=== PATIENT | male | born 1940 | race Caucasian/White ===

== ENCOUNTER → 2016-11-26 | Outpatient (CLI) | payer OTHER ==
[~2016-11-26] MED LIST: ALPR-411 PO; ALPRPOW TD; AMLO-110 PO; ASPCH81X PO; AUG0.05C12 TOP; CALC1CHW57 PO; CHOL1000 PO; CLON0.5T3 PO; CMBIN INH; DSWCR TD; ESCI1TAB10 PO; FINA5TAB4 PO; FLUT0.15; GABA300C19 PO; GABA800T PO; INSDGI SC; INSU1INJ2; INSUINJ17 SC; IPRASOL4 INH; LIDOCAINE EX; METF-384 PO; MGNO400 PO; MULT-1093; MULT-506 PO; MULTTAB58 PO; OMEGCAP2 PO; OXGN; SILO8CAP PO; SIMV40TA2 PO; SPIR50TA2 PO; TRAM-10 PO; VENL75CA73 PO; VITBC PO; ZOLP10TA6 PO; [UNRECOGNIZED DRUG - OTHER]
--- NOTE | 2016-11-26 15:28 | DIAGNOSTIC IMAGING REPORT ---
RIGHT KNEE 1 OR 2 VIEWS CLINICAL HISTORY: Subtle fracture COMPARISON STUDY: 10/15/2016 FINDINGS: There are osteoarthritic changes with narrowing of the medial joint compartment. There is a healing nondisplaced fracture of the medial patellar facet. IMPRESSION: Healing nondisplaced fracture of the medial patellar facet Electronically signed by: Edy Olivo M.D. 11/26/2016 3:26 PM Dictated Date/Time: 11/26/2016 3:24 PM
== END | disposition home or self-care (01) ==
LOC: C.RDSM 08:00
PROVIDERS: ATTEND Physical Medicine & Rehabilitation Sports Medicine
DX: M25.561 Pain in right knee (principal)

== ENCOUNTER → 2017-03-18 | Outpatient (CLI) | payer OTHER ==
[~2017-03-18] MED LIST changes: +GABA-1218 PO; -GABA300C19 PO; +NCY50 PO
[2017-03-18 18:22] LABS: BLOOD UREA NITROGEN 12 mg/dl (7-18); CALCIUM 9.2 mg/dl (8.5-10.1); CARBON DIOXIDE 27 mmol/L (21-32); CHLORIDE 105 mmol/L (98-107); CREATININE 0.94 mg/dl (0.60-1.40); GLUCOSE 135 mg/dl (70-99); POTASSIUM 4.4 mmol/L (3.5-5.1); SODIUM 141 mmol/L (136-145)
[2017-03-18 18:29] LABS: CHOLESTEROL 149 mg/dl (0-200); CHOLESTEROL/HDL RATIO 2.2; HDL CHOLESTEROL 69 mg/dl; LDL CHOLESTEROL CALCULATED 61 mg/dl; TRIGLYCERIDES 95 mg/dl (0-150); VERY LOW DENSITY LIPOPROT CALC 19 mg/dl
[2017-03-19 06:58] LABS: ESTIMATED AVERAGE GLUCOSE 151 mg/dl; HA1C FLAG Normal (Normal)
== END | disposition home or self-care (01) ==
LOC: C.LAB1850 16:08
PROVIDERS: ATTEND Family Medicine
DX: Z68.31 Body mass index [BMI] 31.0-31.9, adult (principal); E11.49 Type 2 diabetes mellitus with other diabetic neurological complication

== ENCOUNTER → 2017-05-08 | Outpatient (CLI) | payer OTHER | END | disposition home or self-care (01) | LOC: C.RDSM 14:49 | PROVIDERS: ATTEND Family Medicine Sports Medicine | DX: M25.511 Pain in right shoulder (principal) ==

== ENCOUNTER → 2017-06-04 | Outpatient (CLI) | payer OTHER ==
[~2017-06-04] MED LIST changes: -GABA-1218 PO; +GABA300C19 PO
--- NOTE | 2017-06-08 19:27 | PULMONARY FUNCTION TEST ---
Interpretation based off of ATS criteria: SPIROMETRY: Moderately severe obstructive ventilatory disease. BRONCHODILATOR: No significant response noted. LUNG VOLUMES: Moderate reduction in total lung capacity. DIFFUSION CAPACITY: Within normal limits. INTERPRETATION: Mild obstructive ventilatory disease with mixed residual/restrictive ventilatory dysfunction.
== END | disposition home or self-care (01) ==
LOC: C.RC 10:39
PROVIDERS: ATTEND Internal Medicine Critical Care Medicine
DX: J98.4 Other disorders of lung (principal)

== ENCOUNTER 2017-07-18 00:49 | Emergency (ER) | payer OTHER ==
[~2017-07-18] VITALS: Ht 188 cm; Wt 113.7 kg
[~2017-07-18 00:49] MED LIST changes: -ALPR-411 PO; -AMLO-110 PO; -AUG0.05C12 TOP; -FLUT0.15; -GABA800T PO; -INSU1INJ2; -LIDOCAINE EX; -MULT-1093; -MULT-506 PO; -NCY50 PO; -SIMV40TA2 PO; -TRAM-10 PO; -VENL75CA73 PO; -[UNRECOGNIZED DRUG - OTHER]
[2017-07-18 00:58] VITALS: TEMP 37.1; Ht 188 cm; Wt 113.7 kg
[2017-07-18 01:04] VITALS: O2SAT 96
[2017-07-18 02:01] LABS: ALB/GLOB RATIO 1.2 (0.9-2); BUN/CREATININE RATIO 18.2 (10-20); CALCIUM 8.9 mg/dl (8.5-10.1); CREATININE 0.99 mg/dl (0.60-1.40); POTASSIUM 4.7 mmol/L (3.5-5.1)
[2017-07-18 03:03] LABS: HEMATOCRIT 37.6 % (42-52); MEAN CELL VOLUME 91.7 fL (80-100); MEAN CORPUSCULAR HEMOGLOBIN 30.2 pg (25-34); MEAN PLATELET VOLUME 11.4 fL (7.4-10.4); PLATELET COUNT 74 K/uL (130-400); WHITE BLOOD COUNT 3.54 K/uL (4.8-10.8)
[2017-07-18 03:05] LABS: BASO % 0.3 %; BASO ABS # 0.01 K/uL (0-0.2); COMPLETE YES; EOS % 1.7 %; IG% 0.3 %; LYMPH % 18.1 %; LYMPH ABS # 0.64 K/uL (1.2-3.4); MONO % 5.4 %; NEUT % 74.2 %; PLT ESTIMATE DECREASED
[2017-07-18 04:00] VITALS: BP 140/60
[2017-07-18 04:32] VITALS: PULSE 64; O2SAT 95
--- NOTE | 2017-07-18 04:36 | EMERGENCY ROOM VISIT NOTE ---
History Report prepared by Robert: Ayse Yu Under the Supervision of: Dr. Miriam Xie D.O. First contact with patient: 00:52 Chief Complaint: OVERDOSE (ACCIDENTAL) Stated Complaint: INSULIN OVERDOSE History of Present Illness The patient is a 76 year old male who presents to the Emergency Room with complaints of an accidental insulin overdose around 2330 today. The patient has a history of diabetes and normally takes 6 units of Humulin and 33 units of Lantus at night. He was tired today and not paying attention when he was giving himself his insulin at 2330. He gave himself 28 units of Humulin when the pen emptied. He then realized he had given himself the wrong insulin. He did not give himself any Lantus today. He took a glucose tab and called EMS. He was given a tube of glucose in route. His blood sugar was 229 before injecting himself. Upon arrival to the ED, his blood sugar was 231. He is currently feeling tired, but otherwise well. He had been feeling well the past couple of days. His blood sugar tonight was a little higher than usual as he had a piece of pie today. 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 He has some left leg pain after falling while getting into the ambulance today. He is able to walk on it. He denies any other recent falls or trauma. He notes that he has been having balance issues which is not new for him. Source of History: patient Onset: 2330 Position: other (global) Symptom Intensity: 28 units of Humulin Quality: other (insulin overdose) Timing: other (episodic) Associated Symptoms: + fatigue Note: Pt reports left leg pain. Review of Systems See HPI for pertinent positives & negatives. A total of 10 systems reviewed and were otherwise negative. Past Medical & Surgical Medical Problems: (1) Anxiety (2) Chronic congestive heart failure (3) Chronic obstructive lung disease (4) Depression (5) Diabetes mellitus type 2 (6) Diverticula of colon (7) Diverticulitis (8) Dupuytren's contracture (9) TERI (obstructive sleep apnea) (10) Raynaud disease Family History No pertinent family history stated. Social History Smoking Status: Former Smoker Drug Use: none Marital Status: Housing Status: lives with family Occupation Status: retired Current/Historical Medications Scheduled Alprostadil (Bulk) (Prostaglandin E1), 1 APPLN TD UD Aspirin (Aspirin Chewable), 81 MG PO DAILY Calcium W/ Vitamins D & K (Calcium + D), 1 TAB PO UD Cholecalciferol (Vitamin D3), 2,000 INTER.UNIT PO DAILY Desonide 0.05% (Desowen 0.05%), 1 APPLN TD BID/PRN Escitalopram Oxalate (Lexapro), 20 MG PO DAILY Finasteride (Proscar), 5 MG PO DAILY Gabapentin (Neurontin), 300 MG PO QID Home O2 Therapy (Oxygen), 3.5 LITERS NA CONTINOUS Insulin Glargine (Lantus), 35 UNITS SC QPM Insulin Regular (Humulin-R), UNITS SC UD Ipratropium-Albuterol (Duoneb), 1 TREATMENT INH Q4H Magnesium Oxide (Magnesium-Oxide), 400 MG PO QAM Metformin Hcl (Glucophage), 1,000 MG PO BID Multiple Vitamin (Multivitamin), 1 TAB PO DAILY Blunt-3 Fatty Acids (Fish Oil), 1 CAPSULE PO BID Silodosin (Rapaflo), 8 MG PO Q2D Spironolactone (Aldactone), 50 MG PO BID Vitamin B Complex (Vitamin B Complex), 2 TABLETS PO DAILY Scheduled PRN Clonazepam (Klonopin), 0.5 MG PO TID PRN for Anxiety/Agitation Ipratropium/Albuterol (Combivent *), 1-2 PUFFS INH Q4-6 HRS PRN Zolpidem Tartrate (Zolpidem Tartrate), 10 MG PO HS PRN Allergies Coded Allergies: Cyclobenzaprine (Verified Allergy, Severe, COLLAPSE, 03/19/10) Lisinopril (Verified Allergy, Mild, 12/21/09) Pioglitazone (Verified Allergy, Mild, 12/21/09) Prochlorperazine (Verified Allergy, Mild, 12/21/09) Glimepiride (Verified Allergy, Unknown, Unknown Rxn, 03/19/10) Mirtazapine (Verified Allergy, Unknown, UNKNOWN, 03/19/10) NO INFO ON ANESTHESIA SHEET Hydrochlorothiazide w/Triamterene (Verified Adverse Reaction, Mild, WEIGHT GAIN,DIZZINESS , FALLS, 03/19/10) Penicillins (Verified Adverse Reaction, Mild, REDNESS AT INJECTION SITE, ) Streptomycin (Verified Adverse Reaction, Mild, REMOTE RXN, "TINGLING IN LEGS" DENIES SOB/RASH, 12/21/09) Tazobactam (Verified Adverse Reaction, Mild, REDNESS AT INJECTION SITE, 12/21/09) Propoxyphene (Verified Adverse Reaction, Unknown, UNKNOWN, 03/19/10) NO INFO ON ANESTHESIA SHEET Physical Exam Vital Signs Date Time Temp Pulse Resp B/P (MAP) Pulse Ox O2 Delivery O2 Flow Rate FiO2 07/18/17 04:32 64 20 95 07/18/17 04:00 61 14 140/60 96 Nasal Cannula 3.5 07/18/17 03:30 65 17 145/63 95 Nasal Cannula 3.5 07/18/17 03:00 64 16 148/68 94 Nasal Cannula 3.5 07/18/17 02:30 73 17 139/50 94 Nasal Cannula 3.5 07/18/17 02:18 69 16 142/56 94 Nasal Cannula 3.5 07/18/17 01:11 74 07/18/17 01:04 96 Nasal Cannula 3.5 07/18/17 00:58 37.1 80 20 140/80 96 Nasal Cannula 3.5 07/18/17 00:58 95 Nasal Cannula 3.5 Physical Exam HEENT: Head - normocephalic and atraumatic Pupils are equal, round, and reactive to light. Extraocular eye muscles are intact, and sclera are anicteric. Nose - moist nasal mucosa without discharge. Mouth - moist buccal mucosa. Oropharynx is nonerythematous and there is no tonsillar exudate or edema noted. Neck: Supple; no JVD, nuchal rigidity, cervical lymphadenopathy, or auscultated bruits. Heart: Regular rate and rhythm. There is a normal S1 and S2 with no murmurs, clicks, or gallops appreciated. Lungs: Clear to auscultation bilaterally with no wheezes, rales, or rhonchi. Abdomen: Soft, completely nontender, nondistended, with good bowel sounds. There are no palpable pulsatile masses or hepatosplenomegaly. There is no guarding, rigidity, or rebound noted. Extremities: No evidence of cyanosis, clubbing, or edema. There are easily palpable peripheral pulses. Contusion over the distal left lower extremity. Skin: warm and dry with good turgor and no rashes. Medical Decision & Procedures Laboratory Results 07/18/17 02:10 Red Blood Count 4.10, Mean Corpuscular Volume 91.7, Mean Corpuscular Hemoglobin 30.2, Mean Corpuscular Hemoglobin Concent 33.0, Mean Platelet Volume 11.4, Neutrophils (%) (Auto) 74.2, Lymphocytes (%) (Auto) 18.1, Monocytes (%) (Auto) 5.4, Eosinophils (%) (Auto) 1.7, Basophils (%) (Auto) 0.3, Neutrophils # (Auto) 2.63, Lymphocytes # (Auto) 0.64, Monocytes # (Auto) 0.19, Eosinophils # (Auto) 0.06, Basophils # (Auto) 0.01 07/18/17 01:20 Test 07/18/17 01:20 07/18/17 02:10 07/18/17 04:12 Anion Gap 4.0 mmol/L (3-11) Est Creatinine Clear Calc Drug Dose 85.1 ml/min Estimated GFR () 85.4 Estimated GFR (Non- 73.7 BUN/Creatinine Ratio 18.2 (10-20) Calcium Level 8.9 mg/dl (8.5-10.1) Total Bilirubin 0.2 mg/dl (0.2-1) Aspartate Amino Transf (AST/SGOT) 17 U/L (15-37) Alanine Aminotransferase (ALT/SGPT) 19 U/L (12-78) Alkaline Phosphatase 80 U/L (45-117) Total Protein 6.1 gm/dl (6.4-8.2) Albumin 3.3 gm/dl (3.4-5.0) Globulin 2.8 gm/dl (2.5-4.0) Albumin/Globulin Ratio 1.2 (0.9-2) Chemistry Specimen Hemolysis White Blood Count 3.54 K/uL (4.8-10.8) Red Blood Count 4.10 M/uL (4.7-6.1) Hemoglobin 12.4 g/dL (14.0-18.0) Hematocrit 37.6 % (42-52) Mean Corpuscular Volume 91.7 fL (80-100) Mean Corpuscular Hemoglobin 30.2 pg (25-34) Mean Corpuscular Hemoglobin Concent 33.0 g/dl (32-36) Platelet Count 74 K/uL (130-400) Mean Platelet Volume 11.4 fL (7.4-10.4) Neutrophils (%) (Auto) 74.2 % Lymphocytes (%) (Auto) 18.1 % Monocytes (%) (Auto) 5.4 % Eosinophils (%) (Auto) 1.7 % Basophils (%) (Auto) 0.3 % Neutrophils # (Auto) 2.63 K/uL (1.4-6.5) Lymphocytes # (Auto) 0.64 K/uL (1.2-3.4) Monocytes # (Auto) 0.19 K/uL (0.11-0.59) Eosinophils # (Auto) 0.06 K/uL (0-0.5) Basophils # (Auto) 0.01 K/uL (0-0.2) RDW Standard Deviation 41.9 fL (36.4-46.3) RDW Coefficient of Variation 12.5 % (11.5-14.5) Immature Granulocyte % (Auto) 0.3 % Immature Granulocyte # (Auto) 0.01 K/uL (0.00-0.02) Platelet Estimate DECREASED Bedside Glucose 210 mg/dl (70-99) Laboratory results per my review. ED Course 0059: The patient was evaluated in room A2. A complete history and physical examination were performed. Nursing notes and previous electronic medical records were reviewed. IV lock was established and labs were drawn as above. BSG's will be followed every 30-40 minutes. 0303: I reevaluated the patient. He is feeling fine. 0310: Review of previous labs shows an extensive history of thrombocytopenia. 0403: Upon reevaluation, he is resting comfortably. I discussed findings and results with him. He will have 1 more blood sugar check. He was unaware of his low platelets so he will follow up with his PCP. He verbalized agreement of the treatment plan. He was discharged home. Medical Decision The patient is a 76 year old male who presents to the ED with insulin overdose. Differential diagnosis includes accidental insulin overdose, hypoglycemia, hyperglycemia, AMS. Labs: platelet count 74, anemic with hemoglobin 12.4, glucose 239, normal renal function, normal LFTs. This is a 76-year-old male patient who presents to the emergency department after an accidental insulin overdose. The patient confused his 2 insulins and gave the wrong dose. Once he realized what he did, he to the glucose tablet. He called EMS. Upon their arrival, they gave him a tube of glucose to consume. The patient's blood sugars have remained in the 200s while here in the emergency department. I've encouraged the patient to watch his blood sugars closely. If he develops any lightheadedness, he should check his sugar immediately. He will follow-up with his PCP with regards to the platelets. Medication Reconcilliation Current Medication List: was personally reviewed by me Blood Pressure Screening Patient's blood pressure: Elevated blood pressure Blood pressure disposition: Elevated BP felt to be situational Impression Primary Impression: Insulin overdose Additional Impression: Thrombocytopenia Scribe Attestation The scribe's documentation has been prepared under my direction and personally reviewed by me in its entirety. I confirm that the note above accurately reflects all work, treatment, procedures, and medical decision making performed by me. Departure Information Dispostion Home / Self-Care Referrals Guanako Gunderson MD (PCP) Forms HOME CARE DOCUMENTATION FORM, IMPORTANT VISIT INFORMATION, WORK / SCHOOL INSTRUCTIONS Patient Instructions My [facility], Thrombocytopenia Additional Instructions Watch sliding scale and insulin dosing closely. Please follow up with PCP about your low platelet count. If you have any feelings of lightheadedness- check your sugar immediately Problem Qualifiers Primary Impression: Insulin overdose Encounter type: initial encounter Injury intent: accidental or unintentional Qualified Codes: T38.3X1A - Poisoning by insulin and oral hypoglycemic [antidiabetic] drugs, accidental (unintentional), initial encounter
[2017-07-23] MEDS ORDERED: TRAM-10 PO (14:39)
[2017-07-23] MEDS ORDERED: AUG0.05C12 TOP (14:54)
[2017-07-23] MEDS ORDERED: FLUT0.15 (14:54)
[2017-07-23] MEDS ORDERED: AMLO-110 PO (14:54)
[2017-07-23] MEDS ORDERED: MULT-1093 (14:54)
[2017-07-23] MEDS ORDERED: ALPR-411 PO (14:54)
[2017-07-23] MEDS ORDERED: GABA800T PO (14:55)
[2017-07-23] MEDS ORDERED: MULT-506 PO (14:55)
[2017-07-23] MEDS ORDERED: VENL75CA73 PO (14:55)
[2017-07-23] MEDS ORDERED: LIDOCAINE EX (14:55)
[2017-07-23] MEDS ORDERED: [UNRECOGNIZED DRUG - OTHER] (14:55)
[2017-07-23] MEDS ORDERED: INSU1INJ2 (14:55)
[2017-07-23] MEDS ORDERED: SIMV40TA2 PO (14:55)
[2017-08-24] MEDS ORDERED: NCY50 PO (15:49)
== END 2017-07-18 04:35 | disposition home or self-care (01) ==
LOC: EDBD 00:49 → C.EDA 00:50
DX: T38.3X1A Poisoning by insulin and oral hypoglycemic [antidiabetic] drugs, accidental (unintentional), initial encounter (principal); D69.6 Thrombocytopenia, unspecified; X58.XXXA Exposure to other specified factors, initial encounter; F41.9 Anxiety disorder, unspecified; I50.9 Heart failure, unspecified; J44.9 Chronic obstructive pulmonary disease, unspecified; F32.9 Major depressive disorder, single episode, unspecified; E11.9 Type 2 diabetes mellitus without complications; G47.33 Obstructive sleep apnea (adult) (pediatric); I73.00 Raynaud's syndrome without gangrene; M72.0 Palmar fascial fibromatosis [Dupuytren]; Z87.891 Personal history of nicotine dependence; Z79.82 Long term (current) use of aspirin; Z79.4 Long term (current) use of insulin

== ENCOUNTER → 2017-07-30 | Outpatient (CLI) | payer OTHER ==
[~2017-07-30] MED LIST changes: +ALPR-411 PO; -ALPRPOW TD; +AMLO-110 PO; +AUG0.05C12 TOP; -CALC1CHW57 PO; -CLON0.5T3 PO; -ESCI1TAB10 PO; +FLUT0.15; -GABA300C19 PO; +GABA800T PO; +INSU1INJ2; -INSUINJ17 SC; +LIDOCAINE EX; +MULT-1093; +MULT-506 PO; +NCY50 PO; -OMEGCAP2 PO; +SIMV40TA2 PO; +TRAM-10 PO; +VENL75CA73 PO; +[UNRECOGNIZED DRUG - OTHER]
== END | disposition home or self-care (01) ==
LOC: C.RDSM 12:27
PROVIDERS: ATTEND Podiatrist
DX: M25.572 Pain in left ankle and joints of left foot (principal)

== ENCOUNTER → 2017-07-31 | Outpatient (CLI) | payer OTHER ==
--- NOTE | 2017-07-31 18:23 | DIAGNOSTIC IMAGING REPORT ---
LEFT VENOUS DOPP LOWER EXT UNILAT CLINICAL HISTORY: 76 years-old Male presenting with LT LEG PAIN, R/O DVT. TECHNIQUE: Real-time grayscale and color and spectral Doppler ultrasound imaging of the veins of the left lower extremity was performed. Compression and augmentation were also utilized. COMPARISON: None. FINDINGS: Left: Common femoral vein: Patent. Femoral vein: Patent. Greater saphenous vein: Patent. Popliteal vein: Patent. Calf veins: Limited visualization. Other: None. IMPRESSION: No evidence of deep venous thrombosis. Electronically signed by: David Gonzalez M.D. 07/31/2017 6:22 PM Dictated Date/Time: 07/31/2017 6:21 PM
--- NOTE | 2017-08-04 09:32 | CODING QUERY MEDICAL NECESSITY ---
SUPPORTING DIAGNOSIS NEEDED A supporting diagnosis is required for the test/procedure performed on this patient in order for us to be reimbursed by the patient's insurance. Please provide a supporting diagnosis for the following test/procedure listed below next to the test name along with your signature. *If there is no additional diagnosis for this patient that would support the following test/procedure please document that below next to the test/procedure. Test(s)/Procedure(s) that require a supporting diagnosis: * US VENOUS UNIL LWR EXT DOPPLER DIAGNOSIS: Provider Signature: Date: Thank you Indira Hawthorne OFERTALDIA Information Management Once completed, please kindly fax back to [phone] For questions please call [phone]
== END | disposition home or self-care (01) ==
LOC: C.ULTR 17:31
PROVIDERS: ATTEND Podiatrist
DX: E11.40 Type 2 diabetes mellitus with diabetic neuropathy, unspecified (principal); S80.12XA Contusion of left lower leg, initial encounter; M21.41 Flat foot [pes planus] (acquired), right foot; L85.3 Xerosis cutis; M25.579 Pain in unspecified ankle and joints of unspecified foot; X58.XXXA Exposure to other specified factors, initial encounter

== ENCOUNTER → 2017-11-12 | Day surgery (SDC) | payer OTHER ==
[2017-11-04 11:14] VITALS: BMI 31.0
[~2017-11-12] VITALS: Ht 188 cm; Wt 110.5 kg
[~2017-11-12] MED LIST changes: +ABL10 PO; +ALLERGY RELIEF PO; -AMLO-110 PO; -AUG0.05C12 TOP; +BUSP30TA2 PO; +CALC-51 PO; +CLC100 PO; -CMBIN INH; -DSWCR TD; +FRRS300 PO; +FRS/40 PO; +IMD/2 PO; +INSDGI INJ; -INSDGI SC; -INSU1INJ2; +INSU1INJ2 INJ; +IPRA-64 INH; +IPRA1AER2 INH; -IPRASOL4 INH; -LIDOCAINE EX; +LIDOCAINE HCL 2% 2 ML VIAL (20MG/ML) ONE; +MAGNESIUM PO; -MGNO400 PO; +MIDAZOLAM HCL 1 MG/ML 2ML VIAL ONE; -MULT-1093; +MULT-1093 PO; -MULT-506 PO; -MULTTAB58 PO; -NCY50 PO; +ONDANSETRON INJ 2 MG/ML 2 ML VIAL ONE; +PROPOFOL IV EMULSION 10 MG/ML 20 ML VIAL IV ONE; +SODIUM CHLORIDE 0.9% 500ML 500 ML IV ONE; +TAPE1TAB10 PO; +TAPE50TA5 PO; -TRAM-10 PO; +TRAZ100T29 PO; +URX/10 PO; +VENL150T33 PO; -ZOLP10TA6 PO; -[UNRECOGNIZED DRUG - OTHER]
[2017-11-12 10:40] VITALS: TEMP 36.8
[2017-11-12 10:42] VITALS: Ht 188 cm; Wt 110.5 kg
--- NOTE | 2017-11-12 10:44 | Endo History and Physical ---
History & Physical Date of Service: Nov 12, 2017. Chief Complaint: Colonoscopy Referring Physician: Dr. Guanako Gunderson History of Present Illness History of adenomatous polyps. 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) Hx Orthopedic: Yes (HAND SURG) Hx Urinary Tract Surgery: No Family History None Social History Smoking Status: Former Smoker Hx Substance Use: Yes (NUCYNTA) Hx Alcohol Use: No Allergies Coded Allergies: Cyclobenzaprine (Verified Allergy, Severe, COLLAPSE, 11/04/17) Lisinopril (Verified Allergy, Mild, UNKNOWN, 11/04/17) Pioglitazone (Verified Allergy, Mild, UNKNOWN, 11/04/17) Prochlorperazine (Verified Allergy, Mild, UNKNOWN, 11/04/17) Glimepiride (Verified Allergy, Unknown, Unknown Rxn, 11/04/17) Mirtazapine (Verified Allergy, Unknown, UNKNOWN, 11/04/17) NO INFO ON ANESTHESIA SHEET Hydrochlorothiazide w/Triamterene (Verified Adverse Reaction, Mild, WEIGHT GAIN,DIZZINESS , FALLS, 11/04/17) Penicillins (Verified Adverse Reaction, Mild, REDNESS AT INJECTION SITE- PT DENIES, 11/04/17) Streptomycin (Verified Adverse Reaction, Mild, REMOTE RXN, "TINGLING IN LEGS" DENIES SOB/RASH, 11/04/17) Tazobactam (Verified Adverse Reaction, Mild, REDNESS AT INJECTION SITE, ) Propoxyphene (Verified Adverse Reaction, Unknown, UNKNOWN, 11/04/17) NO INFO ON ANESTHESIA SHEET Current Medications Reported Home Medications Medications Dose Route/Sig Max Daily Dose Days Date Category Dose Instructions [Calcium] 1 Tab PO QAM 11/04/17 Reported Imodium (Loperamide HCl) 2 Mg Cap 2 Mg PO PRN 11/04/17 Reported [Magnesium] 250 Mg PO QAM 11/04/17 Reported [Allergy Relief] 1 Tab PO PRN 11/04/17 Reported Combivent Respimat (Ipratropium-Albuterol) 1 Aer Aer 1-2 Puffs INH PRN 11/04/17 Reported Lantus (Insulin Glargine) 100 Unit/Ml Inj 33 Units INJ QPM 11/04/17 Reported Lasix (Furosemide) 40 Mg Tab 40 Mg PO PRN 11/04/17 Reported Trazodone (Trazodone HCl) 100 Mg Tab 150 Mg PO HS 11/04/17 Reported Abilify (Aripiprazole) 10 Mg Tab 1 Tab PO HS 30 11/04/17 Reported Nucynta (Tapentadol) 50 Mg Tab 50 Mg PO Q8H PRN 11/04/17 Reported Alfuzosin HCl ER (Alfuzosin HCl) 10 Mg Tab 10 Mg PO QPM 11/04/17 Reported Buspirone Hcl 30 Mg Tab 1 Tab PO BID 30 11/04/17 Reported Venlafaxine Hcl Er (Venlafaxine Hcl) 150 Mg Tab 1 Tab PO QAM 30 11/04/17 Reported Neurontin (Gabapentin) 800 Mg Tab 800 Mg PO QID 07/23/17 Reported Venlafaxine Extended Rel (Venlafaxine Hcl) 75 Mg Cap 1 Cap PO QAM 90 07/23/17 Reported Zocor (Simvastatin) 40 Mg Tab 40 Mg PO QPM 07/23/17 Reported Novolog Penfill (Insulin Aspart) 100 Unit/Ml Inj 1 Dose INJ TIDM 07/23/17 Reported SLIDING SCALE Flonase Allergy Relief (Fluticasone Propionate (Nasal)) 50 Mcg/Act Spr 2 Sprays 07/23/17 Reported Centrum Silver 50+Men (Multiple Vitamins W/ Minerals) 1 Tab Tab 1 Tab PO QAM 07/23/17 Reported Xanax (Alprazolam) 0.5 Mg Tab 0.5 Mg PO TID 07/23/17 Reported Duoneb (Ipratropium-Albuterol) 3 Ml Nebu 1 Treatment INH Q4H PRN 11/23/14 Reported Aldactone (Spironolactone) 50 Mg Tab 25 Mg PO BID 11/23/14 Reported Rapaflo (Silodosin) 8 Mg Cap 8 Mg PO HS 11/23/14 Reported Glucophage (Metformin Hcl) 1,000 Mg Tab 1,000 Mg PO BID 11/23/14 Reported Aspirin Chewable (Aspirin) 81 Mg Chew 81 Mg PO QAM 11/23/14 Reported Proscar (Finasteride) 5 Mg Tab 5 Mg PO QAM 01/04/14 Reported Vitamin B Complex 1 Tab Tab 2 Tablets PO QAM 07/29/13 Reported Vitamin D3 (Cholecalciferol) 1,000 Unit Tab 2,000 Inter.unit PO QAM 07/29/13 Reported Oxygen Gas 3.5 Liters NA CONTINOUS 07/29/13 Reported Vital Signs Weight (Kilograms): 110.45 Height (Feet): 6 Height (Inches): 2 Physical Exam General Appearance: WD/WN, no apparent distress Respiratory/Chest: Auscultation: breath sounds normal, no wheezing Cardiovascular: Heart Auscultation: RRR, no murmurs Abdomen: Bowel Sounds: normal Inspection & Palpation: soft Assessment and Plan Cleared for colonoscopy
--- NOTE | 2017-11-12 11:52 | GI REPORT ---
Procedure Date: 11/12/2017 11:09 AM Procedure: Colonoscopy Indications: High risk colon cancer surveillance: Personal history of colonic polyps Medicines: Monitored Anesthesia Care Complications: No immediate complications. Estimated blood loss: None. Estimated Blood Loss: Estimated blood loss: none. Procedure: Pre-Anesthesia Assessment: - Prior to the procedure, a History and Physical was performed, and patient medications, allergies and sensitivities were reviewed. The patient's tolerance of previous anesthesia was reviewed. - ASA Grade Assessment: III - A patient with severe systemic disease. After I obtained informed consent, the scope was passed under direct vision. Throughout the procedure, the patient's blood pressure, pulse, and oxygen saturations were monitored continuously. The scope was introduced through the anus and advanced to the terminal ileum, with identification of the appendiceal orifice and IC valve. The colonoscopy was performed with ease. The patient tolerated the procedure well. The quality of the bowel preparation was good. The bowel preparation used was split dose MIralax. Findings: A 3 mm polyp was found in the ascending colon. The polyp was sessile. The polyp was removed with a cold snare. Resection and retrieval were complete. Two sessile polyps were found in the hepatic flexure. The polyps were 1 to 2 mm in size. These polyps were removed with a cold snare. Resection and retrieval were complete. Two sessile polyps were found in the transverse colon. The polyps were 2 to 5 mm in size. These polyps were removed with a cold snare. Resection and retrieval were complete. A 2 mm polyp was found in the descending colon. The polyp was sessile. The polyp was removed with a cold snare. Resection and retrieval were complete. There was evidence of a prior functional end-to-end colo-colonic anastomosis in the sigmoid colon. This was patent and was characterized by healthy appearing mucosa. The anastomosis was traversed. Verification of patient identification for the specimens was done by the physician and nurse using the patient's name, date and medical record number. Impression: - One 3 mm polyp in the ascending colon, removed with a cold snare. Resected and retrieved. - Two 1 to 2 mm polyps at the hepatic flexure, removed with a cold snare. Resected and retrieved. - Two 2 to 5 mm polyps in the transverse colon, removed with a cold snare. Resected and retrieved. - One 2 mm polyp in the descending colon, removed with a cold snare. Resected and retrieved. - Patent functional end-to-end colo-colonic anastomosis, characterized by healthy appearing mucosa. Recommendation: - Repeat colonoscopy in 3 years for surveillance based on pathology results. - Discharge patient to home (with escort). Ramiro Tim M.D. Ramiro Tim MD 11/12/2017 11:52:13 AM This report has been signed electronically. Note Initiated On: 11/12/2017 11:09 AM I attest to the content of the Intraoperative Record and orders documented therein, exceptions below
--- NOTE | 2017-11-12 11:55 | Discharge Instructions ---
Endoscopy Patient Instructions Date / Procedure(s) Performed Nov 12, 2017. Colonoscopy Allergy Information Coded Allergies: Cyclobenzaprine (Verified Allergy, Severe, COLLAPSE, 11/04/17) Lisinopril (Verified Allergy, Mild, UNKNOWN, 11/04/17) Pioglitazone (Verified Allergy, Mild, UNKNOWN, 11/04/17) Prochlorperazine (Verified Allergy, Mild, UNKNOWN, 11/04/17) Glimepiride (Verified Allergy, Unknown, Unknown Rxn, 11/04/17) Mirtazapine (Verified Allergy, Unknown, UNKNOWN, 11/04/17) NO INFO ON ANESTHESIA SHEET Hydrochlorothiazide w/Triamterene (Verified Adverse Reaction, Mild, WEIGHT GAIN,DIZZINESS , FALLS, 11/04/17) Penicillins (Verified Adverse Reaction, Mild, REDNESS AT INJECTION SITE- PT DENIES, 11/04/17) Streptomycin (Verified Adverse Reaction, Mild, REMOTE RXN, "TINGLING IN LEGS" DENIES SOB/RASH, 11/04/17) Tazobactam (Verified Adverse Reaction, Mild, REDNESS AT INJECTION SITE, ) Propoxyphene (Verified Adverse Reaction, Unknown, UNKNOWN, 11/04/17) NO INFO ON ANESTHESIA SHEET Discharge Date / Findings Nov 12, 2017. Multiple colon polyps removed. Medication Instructions Stopped Medication(s): PT STOPPED ALL MEDS SINCE 11/10/17 Restart Stopped Medication(s): Hold aspirin for one week, then OK to resume. Resume all other medications today. Provider Instructions Activity Restrictions - No exercising or heavy lifting for 24 hours. - Do not drink alcohol the day of the procedure. - Do not drive a car or operate machinery until the day after the procedure. - Do not make any important decisions or sign important papers in 24 hours after the procedure. Following Day: - Return to full activity which may include returning to work/school. Diet Start your diet with liquids and light foods (jello, soup, juice, toast). Then eat your usual diet if not nauseated. Treatment For Common After Affects For mild abdominal pain, bloating, or excessive gas: - Rest - Eat lightly - Lie on right side Follow-Up Information Follow-up with DR MARYANN POLANCO as scheduled Anesthesia Information What You Should Know You have had a procedure that required some medicine to reduce anxiety and discomfort. This treatment is called moderate sedation. After receiving the treatment, you may be sleepy, but you will be able to breathe on your own. The effects of the treatment may last for several hours. Follow these instructions along with Activity/Diet recommendations noted above: * Do NOT do anything where dizziness or clumsiness would be dangerous. * Rest quietly at home today, then you can be up and about tomorrow. * Have a responsible person stay with you the rest of today. * You may have had an I.V. today. If so, you may take the dressing off later today. Recommendations Call your doctor if: * Trouble breathing * Continuous vomiting for more than 24 hours * Temperature above 101 degrees * Severe abdominal pain or bloating * Pain not relieved by pain medicine ordered * There is increased drainage or redness from any incision * A large amount of rectal bleeding greater than 2-3 tablespoons. (If you had a polyp/s removed or have hemorrhoids, a small amount of blood - from the rectum is to be expected.) * You have any unanswered questions or concerns. IN THE EVENT OF A SERIOUS EMERGENCY, GO TO THE NEAREST EMERGENCY ROOM Your discharge instructions were prepared by provider Ramiro Tim. Patient Instructions Signature Page Guy Page Patient (or Guardian) Signature/Date: I have read and understand the instructions given to me by my caregivers. Caregiver/RN/Doctor Signature/Date: The above-named patient and/or guardian has received patient instructions on this date. + Original Patient Signature Page (only) stays with chart. Please make copy for patient.
[2017-11-12 12:24] VITALS: BP 181/79; PULSE 69; O2SAT 98
--- NOTE | 2017-11-12 12:26 | Anesthesiology Progress Note ---
Anesthesia Post Op Note Date & Time Nov 12, 2017 at 12:26 Vital Signs Pain Intensity: 0 Vital Signs Past 12 Hours Date Time Temp Pulse Resp B/P (MAP) Pulse Ox O2 Delivery O2 Flow Rate FiO2 11/12/17 12:09 70 18 186/85 (118) 97 Nasal Cannula 11/12/17 11:54 71 18 158/60 (92) 93 Room Air 11/12/17 10:42 179/75 (109) 11/12/17 10:40 36.8 77 18 197/77 (117) 98 Nasal Cannula 3 Notes Mental Status: alert / awake / arousable, participated in evaluation Pt Amnestic to Procedure: Yes Nausea / Vomiting: adequately controlled Pain: adequately controlled Airway Patency, RR, SpO2: stable & adequate BP & HR: stable & adequate Hydration State: stable & adequate Anesthetic Complications: no major complications apparent
== END | disposition home or self-care (01) ==
LOC: C.GI 09:11
PROVIDERS: ATTEND Internal Medicine Gastroenterology
DX: Z12.11 Encounter for screening for malignant neoplasm of colon (principal); Z86.010 Personal history of colon polyps; D12.2 Benign neoplasm of ascending colon; D12.4 Benign neoplasm of descending colon; D12.3 Benign neoplasm of transverse colon; Z98.0 Intestinal bypass and anastomosis status; I10 Essential (primary) hypertension; E78.5 Hyperlipidemia, unspecified; E11.9 Type 2 diabetes mellitus without complications; G47.33 Obstructive sleep apnea (adult) (pediatric); K21.9 Gastro-esophageal reflux disease without esophagitis; J44.9 Chronic obstructive pulmonary disease, unspecified; B19.20 Unspecified viral hepatitis C without hepatic coma; M19.90 Unspecified osteoarthritis, unspecified site; F32.9 Major depressive disorder, single episode, unspecified; Z87.891 Personal history of nicotine dependence; Z79.82 Long term (current) use of aspirin; Z79.4 Long term (current) use of insulin; Z79.899 Other long term (current) drug therapy; Z99.81 Dependence on supplemental oxygen

== ENCOUNTER → 2018-01-22 | Outpatient (CLI) | payer OTHER ==
[~2018-01-22] MED LIST changes: -ALPR-411 PO; -CLC100 PO; -FRRS300 PO; -IPRA-64 INH; +IPRASOL4 INH; -LIDOCAINE HCL 2% 2 ML VIAL (20MG/ML) ONE; -MIDAZOLAM HCL 1 MG/ML 2ML VIAL ONE; -ONDANSETRON INJ 2 MG/ML 2 ML VIAL ONE; -PROPOFOL IV EMULSION 10 MG/ML 20 ML VIAL IV ONE; -SODIUM CHLORIDE 0.9% 500ML 500 ML IV ONE; -TAPE1TAB10 PO
--- NOTE | 2018-01-22 16:26 | DIAGNOSTIC IMAGING REPORT ---
CHEST 2 VIEWS ROUTINE CLINICAL HISTORY: Atypical chest pain. Trauma. COMPARISON STUDY: 12/04/2015 FINDINGS: There are postsurgical changes of a midline sternotomy. There is a pectus deformity. The heart remains enlarged. Indistinctness the heart borders is likely secondary to the pectus deformity. There is no acute parenchymal consolidation. There is no failure. There is minimal blunting left lateral costophrenic angle which may be chronic.[ No pneumothorax is visualized. IMPRESSION: Postsurgical change. Prominent pectus deformity. No acute findings. Electronically signed by: Edy Olivo M.D. 01/22/2018 4:25 PM Dictated Date/Time: 01/22/2018 4:24 PM
--- NOTE | 2018-01-22 16:28 | DIAGNOSTIC IMAGING REPORT ---
L RIBS UNILATERAL MIN 2 VIEWS CLINICAL HISTORY: Left-sided chest pain. History of trauma. COMPARISON STUDY: No previous studies for comparison. FINDINGS: Postsurgical changes involve the sternum and ribs. There is no pneumothorax. No acute rib fractures are visualized. IMPRESSION: Left-sided rib deformities which are felt to be chronic and postsurgical. No acute fractures identified on conventional radiographic imaging. No evidence of pneumothorax. Electronically signed by: Edy Olivo M.D. 01/22/2018 4:27 PM Dictated Date/Time: 01/22/2018 4:25 PM
== END | disposition home or self-care (01) ==
LOC: C.RAD1850 16:03
PROVIDERS: ATTEND Family Medicine
DX: R07.81 Pleurodynia (principal); W19.XXXA Unspecified fall, initial encounter

== ENCOUNTER → 2018-06-07 | Outpatient (CLI) | payer OTHER ==
[~2018-06-07] MED LIST changes: -ALLERGY RELIEF PO; -CALC-51 PO; +CLC100 PO; +FRRS300 PO; +IPRA-64 INH; -IPRASOL4 INH; -MAGNESIUM PO; +TAPE1TAB10 PO; -TAPE50TA5 PO
[2018-06-07 08:44] LABS: HEMATOCRIT 27.4 % (42-52); HEMOGLOBIN 8.7 g/dL (14.0-18.0); MEAN CELL VOLUME 92.6 fL (80-100); MEAN CORPUSCULAR HEMOGLOBIN 29.4 pg (25-34); MEAN CORPUSCULAR HGB CONC 31.8 g/dl (32-36); MEAN PLATELET VOLUME 11.5 fL (7.4-10.4); PLATELET COUNT 123 K/uL (130-400); RED CELL DISTRIBUTION WIDTH CV 15.3 % (11.5-14.5); RED CELL DISTRIBUTION WIDTH SD 51.4 fL (36.4-46.3); WHITE BLOOD COUNT 4.08 K/uL (4.8-10.8)
[2018-06-07 08:52] LABS: BLOOD UREA NITROGEN 13 mg/dl (7-18); CALCIUM 8.6 mg/dl (8.5-10.1); CARBON DIOXIDE 31 mmol/L (21-32); CREATININE 0.94 mg/dl (0.60-1.40); GLUCOSE 85 mg/dl (70-99); POTASSIUM 3.9 mmol/L (3.5-5.1); SODIUM 141 mmol/L (136-145)
== END ==
LOC: C.LABCC 08:30
PROVIDERS: ATTEND Internal Medicine
DX: D50.9 Iron deficiency anemia, unspecified (principal); E11.9 Type 2 diabetes mellitus without complications; K74.60 Unspecified cirrhosis of liver

== ENCOUNTER 2019-05-13 18:37 | Inpatient (IN) ==
--- NOTE | 2019-05-13 19:51 | XRay Report ---
XR chest 1V portable CLINICAL HISTORY: Dyspnea COMPARISON STUDY: 05/22/2018 FINDINGS: The heart is enlarged. There are postsurgical changes of a midline sternotomy. There is thania vation of the interstitium consistent with mild congestive failure/fluid overload. Ill-definition lef t heart border appears chronic. 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 This is likely posts urgical[ IMPRESSION: Radiographic evidence of mild congestive failure/fluid overload. Electronically signed by: Edy Olivo M.D. 05/13/2019 7:49 PM
[2019-05-13] MEDS ORDERED: ALBUT/IPRATROP 3MG/0.5MG NEB 3 ML VIAL NEB STA (20:25)
[2019-05-13] MEDS ORDERED: FUROSEMIDE 40 MG/4 ML VIAL IV STA (20:25)
[2019-05-13] MEDS ORDERED: methylPREDNISolone 125 MG/2 ML VIAL IV STA (20:25)
[2019-05-13 20:48] LABS: Partial Thromboplastin Time 26.6 Seconds (21.0-31.0); Prothrombin Time 10.3 Seconds (9.0-12.0)
[2019-05-13 21:06] LABS: Alanine Aminotransferase 24 U/L (12-78); Aspartate Aminotransferase 19 U/L (15-37); BUN Creatinine Ratio 12.9 (10-20); Blood Urea Nitrogen 11 mg/dl (7-18); Calcium 9.6 mg/dl (8.5-10.1); Carbon Dioxide 32 mmol/L (21-32); Chloride 96 mmol/L (98-107); Creatinine Clr Calc Pharmacy 90.6 ml/min; Est GFR (African American) 95.8; Est GFR (Non-African American) 82.7; Glucose 115 mg/dl (70-99); Magnesium 1.9 mg/dl (1.8-2.4); Potassium 4.5 mmol/L (3.5-5.1); Sodium 134 mmol/L (136-145)
[2019-05-13 21:11] LABS: Albumin Globulin Ratio 1.3 (0.9-2); Alkaline Phosphatase 83 U/L (45-117); Bilirubin,Total 0.4 mg/dl (0.2-1); Globulin 3.2 gm/dl (2.5-4.0); Total Protein 7.2 gm/dl (6.4-8.2); Troponin I < 0.015 ng/ml (0-0.045)
[2019-05-13 21:14] LABS: Basophils # (auto) 0.01 K/uL (0-0.2); Basophils % (auto) 0.1 %; Eosinophils # (auto) 0.06 K/uL (0-0.5); Eosinophils % (auto) 0.7 %; Hematocrit (blood only) 39.6 % (42-52); Hemoglobin 13.7 g/dL (14.0-18.0); Immature Granulocytes # (auto) 0.01 K/uL (0.00-0.02); Immature Granulocytes % (auto) 0.1 %; Lymphocytes # (auto) 0.62 K/uL (1.2-3.4); Lymphocytes % (auto) 7.3 %; Mean Corpuscular Hgb Conc 34.6 g/dL (32-36); Mean Corpuscular Volume 90.2 fL (80-100); Mean Platelet Volume 11.2 fL (7.4-10.4); Monocytes # (auto) 0.54 K/uL (0.11-0.59); Monocytes % (auto) 6.4 %; Neutrophils % (auto) 85.4 %; Platelet Count 78 K/uL (130-400); RDW Coefficient of Variation 12.6 % (11.5-14.5); RDW Standard Deviation 41.4 fL (36.4-46.3); Red Blood Count 4.39 M/uL (4.7-6.1); White Blood Count 8.44 K/uL (4.8-10.8)
--- NOTE | 2019-05-13 23:47 | History & Physical Report ---
Date of Service May 13, 2019 Assessment & Plan (1) Acute on chronic respiratory failure with hypoxia: Acute on chronic respiratory failure with hypoxia, on home oxygen therapy of 3-3.5 liters- Combination of COPD exacerbation and acute on chronic CHF- Present on Admission?: Yes (2) Chronic respiratory failure with hypoxia, on home oxygen therapy: See above Present on Admission?: Yes (3) CHF (congestive heart failure): CHF/hypertension- Given Lasix 40 mg IV in the ED. Continue Lasix 40 mg IV every morning. Continue spironolactone 25 mg p.o. daily. Continue amlodipine 5 mg daily Present on Admission?: Yes (4) Chronic obstructive lung disease: COPD/bronchopneumonia- Pulmicort Respules 0.5 mg inhaled twice daily. Ceftriaxone 1 g IV daily. Guaifenesin extended release 600 mg p.o. twice daily. Duonebs every 4 hours while awake and every 2 hours when necessary. Sputum Gram stain and culture Present on Admission?: Yes (5) Diabetic peripheral neuropathy associated with type 2 diabetes mellitus: Continue gabapentin 800 mg p.o. 4 times daily Present on Admission?: Yes (6) Anxiety with depression: Anxiety with depression- Continue alprazolam, buspirone, gabapentin, trazodone and venlafaxine ER. Present on Admission?: Yes (7) TERI (obstructive sleep apnea): Patient has not always been compliant with CPAP. We will prescribe CPAP as needed. Present on Admission?: Yes (8) BPH (benign prostatic hyperplasia): Continue alfuzosin ER and finasteride Present on Admission?: Yes (9) Diabetes mellitus: Change Lantus from 24 to 16 units subcu at bedtime. Placed on Accu-Cheks before meals and at bedtime with NovoLog coverage per scale. Hold metformin. Present on Admission?: Yes (10) Hyperlipidemia LDL goal <70: Continue simvastatin 40 mg at bedtime. Present on Admission?: Yes (11) Hypotestosteronism: Continue testosterone 1.62% transdermal gel packet Present on Admission?: Yes History of Present Illness Chief Complaint: The patient presents to the emergency department with worsening cough and shortness of breath over the past few days. He notes that at 9:00 this morning when he was taking a fish oil pill, it felt like it got stuck, and he feels a cough and wheezing may have worsened since that time. He does report that there were a few times during the day his coughing led to chest discomfort, that resolved when the coughing resolved. When EMS arrived, the patient had a registered pulse ox of 88% on his usual 3 L of oxygen. Primary Care Provider: Reji Gunderson MD The patient is a 78-year-old male with a past medical history including 3 L oxygen dependent COPD, hypertension, hyperlipidemia, diabetes mellitus, obesity, depression, BPH and obstructive sleep apnea, who presents to the emergency department with worsening productive cough and shortness of breath. He reports that his symptoms were more aggravated by near choking on a fish oil tablet that he took this morning, but that he was having problems prior to that as well. In the emergency department, patient received Solu-Medrol 125 mg IV, a DuoNeb treatment and Lasix 40 mg IV, and was then referred for evaluation for admission. Allergies Allergy/AdvReac Type Severity Reaction Status Date / Time cyclobenzaprine Allergy Severe COLLAPSE Verified 05/13/19 20:12 morphine Allergy Intermediate other Verified 05/13/19 20:12 oxycodone Allergy Intermediate other Verified 05/13/19 20:12 lisinopril Allergy Mild UNKNOWN Verified 05/13/19 20:12 pioglitazone Allergy Mild UNKNOWN Verified 05/13/19 20:12 prochlorperazine Allergy Mild UNKNOWN Verified 05/13/19 20:12 carisoprodol [From Soma] Allergy Unknown ON [facility] Verified 05/13/19 20:12 LIST glimepiride Allergy Unknown Unknown Rxn Verified 05/13/19 20:12 lamotrigine [From Lamictal] Allergy Unknown [facility] LIST Verified 05/13/19 20:12 mirtazapine Allergy Unknown UNKNOWN Verified 05/13/19 20:12 olmesartan [From Benicar] Allergy Unknown ON [facility] Verified 05/13/19 20:12 LIST quetiapine [From Seroquel] Allergy Unknown ON [facility] Verified 05/13/19 20:12 LIST tamsulosin [From Flomax] Allergy Unknown [facility] LIST Verified 05/13/19 20:12 telmisartan [From Micardis] Allergy Unknown ON [facility] Verified 05/13/19 20:12 LIST Dyazide AdvReac Mild WEIGHT Verified 05/22/18 01:18 GAIN,DIZZINESS , FALLS hydrochlorothiazide AdvReac Mild WEIGHT Verified 05/13/19 20:12 GAIN,DIZZINESS , FALLS Penicillins AdvReac Mild REDNESS AT Verified 05/13/19 20:12 INJECTION SITE-PT DENIES streptomycin AdvReac Mild REMOTE Verified 05/13/19 20:12 RXN, "TINGLING IN LEGS" DENIES SOB/RASH tazobactam AdvReac Mild REDNESS AT Verified 05/13/19 20:12 INJECTION SITE triamterene AdvReac Mild WEIGHT Verified 05/13/19 20:12 GAIN,DIZZINESS , FALLS propoxyphene AdvReac Unknown UNKNOWN Verified 05/13/19 20:12 Home Medications Home Medications Medication Instructions Recorded Confirmed Type B-complex with vitamin C capsule 2 cap PO DAILY 07/23/18 05/13/19 History alfuzosin ER 10 mg tablet,extended 10 mg PO DAILY 07/23/18 05/13/19 History release 24 hr aspirin 81 mg chewable tablet 81 mg PO DAILY 07/23/18 05/13/19 History buspirone 30 mg tablet 30 mg PO DAILY 07/23/18 05/13/19 History cholecalciferol (vitamin D3) 2,000 2,000 units PO DAILY 07/23/18 05/13/19 History unit tablet finasteride 5 mg tablet 5 mg PO DAILY 07/23/18 05/13/19 History fluticasone propionate 50 1 sprays INTNAS DAILY 07/23/18 05/13/19 History mcg/actuation nasal spray,suspension ipratropium-albuterol 0.5 mg-3 3 ml INH Q4H PRN ml 07/23/18 05/13/19 History mg(2.5 mg base)/3 mL nebulization soln ipratropium-albuterol 0.5 mg-3 3 ml INH QID ml 07/23/18 05/13/19 History mg(2.5 mg base)/3 mL nebulization soln metformin 1,000 mg tablet 1,000 mg PO BID 07/23/18 05/13/19 History simvastatin 40 mg tablet 40 mg PO QPM 07/23/18 05/13/19 History spironolactone 25 mg tablet 25 mg PO DAILY 07/23/18 05/13/19 History trazodone 150 mg tablet 150 mg PO HS 07/23/18 05/13/19 History venlafaxine ER 150 mg 150 mg PO BID 07/23/18 05/13/19 History tablet,extended release 24 hr alprazolam 0.5 mg tablet 0.5 mg PO TID PRN tab 05/02/19 05/13/19 History gabapentin 800 mg tablet 800 mg PO QID tab 05/02/19 05/13/19 History magnesium 400 mg (as magnesium 400 mg PO DAILY tab 05/02/19 05/13/19 History oxide) tablet anvntmcv-efg-uppoa acid 300 1 tab PO DAILY 05/02/19 05/13/19 History mcg-lycopene 600 mcg-lutein 300 mcg tablet tapentadol ER 100 mg 100 mg PO Q12H #60 tab 05/02/19 05/13/19 Rx tablet,extended release,12 hr testosterone 1.62 % (40.5 mg/2.5 0 mg TOPICAL DAILY gm 05/02/19 05/13/19 History gram) transdermal gel packet Compound Medicine 1 - 2 g TOPICAL DAILY 05/13/19 05/13/19 History amlodipine 5 mg PO DAILY 05/13/19 05/13/19 History betamethasone dipropionate 1 applic TOPICAL DIRECTED PRN 05/13/19 05/13/19 History calcium carbonate-vitamin D3 1 tab PO DAILY 05/13/19 05/13/19 History [Calcium 600 + D(3)] indacaterol-glycopyrrolate 1 cap INHALATION BID 05/13/19 05/13/19 History [Utibron Neohaler] insulin aspart U-100 [Novolog 1 sliding scale dose SUBCUT 05/13/19 05/13/19 History U-100 Insulin aspart] USEASDIRECTD insulin glargine [Lantus U-100 24 unit SUBCUT HS 05/13/19 05/13/19 History Insulin] lidocaine HCl 1 applic TOPICAL Q4 PRN 05/13/19 05/13/19 History silodosin 8 mg PO HS 05/13/19 05/13/19 History tadalafil 20 mg PO DIRECTED PRN 05/13/19 05/13/19 History Past Med/Surg History Medical History Chronic respiratory failure with hypoxia, on home oxygen therapy (Chronic) Diabetes mellitus (Chronic) Chronic obstructive lung disease (Chronic) Chronic congestive heart failure (Chronic) Anxiety (Chronic) Depression (Chronic) Diverticula of colon (Chronic) TERI (obstructive sleep apnea) (Chronic) Dupuytren's contracture (Chronic) Hepatitis C Cirrhosis (Chronic) Gastric ulcer (Resolved) Social History Preferred Language: Persian Communication Ability: Effective Visual Impairment: Limited Hearing Ability: Normal Industry Analyst Required: No Beliefs That Will Affect Care: None marital status: marital status details: seperated Current Living Situation: Alone current occupational status: retired Other Information That Helps Us Care for You: No Feels Safe at Home: Yes Safety Concerns: Feels Safe At This Time Smoking Status: Former smoker Do You Dip or Chew Tobacco: No Second Hand Exposure: No Tobacco Cessation Education Requested by Patient: No Hx Alcohol Use: No Hx Substance Use: No Review of Systems Review of Systems: The patient denies lower extremity swelling, sore throat, fevers, chills, sweats, nausea, vomiting, diarrhea , constipation, abdominal pain, pelvic pain, blood in urine or stool, dysuria, urinary frequency or urgency, lightheadedness, dizziness, headache, memory loss, loss of consciousness, rash, abnormal bruising or bleeding, imbalance, focal or generalized weakness, numbness or tingling in arms or legs, generalized arthralgias or myalgias, back or neck pain, or night sweats. The review of systems is otherwise negative other than for that already noted above, and at least 10 systems have been reviewed. Physical Exam Physical Exam: The patient is awake, alert and oriented 3, well developed and well nourished, normocephalic and atraumatic, has CARTAGENA when walking from chair to bed. HEENT--PERRL, EOMI, mucous membranes and oropharynx normal. Neck--supple. No JVD. No bruits. Thyroid normal, trachea midline, no adenopathy. Heart--normal S1 and S2. No murmurs, rubs or gallops. Lungs--coarse breath sounds and wheezes bilaterally. Mild respiratory distress, no accessory muscle use. Abdomen--normal bowel sounds and soft. Nontender. Nondistended. Extremities--no cyanosis or clubbing. There is 1+ bilateral pretibial pitting edema. Dermatologic-chronic venous stasis changes in bilateral lower extremities. Neurologic--cranial nerves II through XII grossly intact. Rheumatologic--normal range of motion. Psychiatric--normal affect. Results & Data Vital Signs (Past 12 Hours) Vital Signs Temp Pulse Pulse Resp BP BP Pulse Ox 05/13/19 23:36 70 19 171/89 H 94 05/13/19 23:00 119 H 28 H 160/66 H 05/13/19 22:30 88 18 152/63 H 05/13/19 22:00 91 H 21 154/120 H 95 05/13/19 21:35 90 17 179/83 H 96 05/13/19 20:49 76 20 96 05/13/19 20:30 73 22 149/64 H 97 05/13/19 19:51 66 19 149/70 H 96 05/13/19 19:50 81 18 149/70 H 96 05/13/19 19:46 96 05/13/19 18:46 98.2 F 71 18 174/67 H 98 05/13/19 18:45 66 17 174/67 H 97 Laboratory Results Laboratory Results WBC 8.44 K/uL (4.8-10.8) 05/13/19 19:25 RBC 4.39 M/uL (4.7-6.1) L 05/13/19 19:25 Hgb 13.7 g/dL (14.0-18.0) L 05/13/19 19:25 Hct 39.6 % (42-52) L 05/13/19 19:25 MCV 90.2 fL (80-100) 05/13/19 19:25 MCH 31.2 pg (25-34) 05/13/19 19:25 MCHC 34.6 g/dL (32-36) 05/13/19 19:25 RDW Std Deviation 41.4 fL (36.4-46.3) 05/13/19 19:25 RDW Coeff of Ja 12.6 % (11.5-14.5) 05/13/19 19:25 Plt Count 78 K/uL (130-400) L 05/13/19 19:25 MPV 11.2 fL (7.4-10.4) H 05/13/19 19:25 Immature Gran % (Auto) 0.1 % 05/13/19 19:25 Neut % (Auto) 85.4 % 05/13/19 19:25 Lymph % (Auto) 7.3 % 05/13/19 19:25 [place] % (Auto) 6.4 % 05/13/19 19:25 Eos % (Auto) 0.7 % 05/13/19 19:25 Baso % (Auto) 0.1 % 05/13/19 19:25 Immature Gran # (Auto) 0.01 K/uL (0.00-0.02) 05/13/19 19:25 Neut # (Auto) 7.20 K/uL (1.4-6.5) H 05/13/19 19:25 Lymph # (Auto) 0.62 K/uL (1.2-3.4) L 05/13/19 19:25 [place] # (Auto) 0.54 K/uL (0.11-0.59) 05/13/19 19:25 Eos # (Auto) 0.06 K/uL (0-0.5) 05/13/19 19:25 Baso # (Auto) 0.01 K/uL (0-0.2) 05/13/19 19:25 PT 10.3 Seconds (9.0-12.0) 05/13/19 19:25 INR 1.0 (0.9-1.1) 05/13/19 19:25 APTT 26.6 Seconds (21.0-31.0) 05/13/19 19:25 PTT Ratio 1.0 05/13/19 19:25 Sodium 134 mmol/L (136-145) L 05/13/19 19:25 Potassium 4.5 mmol/L (3.5-5.1) 05/13/19 19:25 Chloride 96 mmol/L (98-107) L 05/13/19 19:25 Carbon Dioxide 32 mmol/L (21-32) 05/13/19 19:25 Anion Gap 7.0 (3-11) 05/13/19 19:25 BUN 11 mg/dl (7-18) 05/13/19 19:25 Creatinine 0.87 mg/dl (0.6-1.4) 05/13/19 19:25 Est Cr Clr Drug Dosing 90.6 ml/min 05/13/19 19:25 Est GFR ( Amer) 95.8 05/13/19 19:25 Est GFR (Non-Af Amer) 82.7 05/13/19 19:25 BUN/Creatinine Ratio 12.9 (10-20) 05/13/19 19:25 Glucose 115 mg/dl (70-99) H 05/13/19 19:25 POC Glucose 288 (70-99) H 05/14/19 00:58 Calcium 9.6 mg/dl (8.5-10.1) 05/13/19 19:25 Magnesium 1.9 mg/dl (1.8-2.4) 05/13/19 19:25 Total Bilirubin 0.4 mg/dl (0.2-1) 05/13/19 19:25 AST 19 U/L (15-37) 05/13/19 19:25 ALT 24 U/L (12-78) 05/13/19 19:25 Alkaline Phosphatase 83 U/L (45-117) 05/13/19 19:25 Troponin I < 0.015 ng/ml (0-0.045) 05/14/19 00:15 Total Protein 7.2 gm/dl (6.4-8.2) 05/13/19 19:25 Albumin 4.0 gm/dl (3.4-5.0) 05/13/19 19:25 Globulin 3.2 gm/dl (2.5-4.0) 05/13/19 19:25 Albumin/Globulin Ratio 1.3 (0.9-2) 05/13/19 19:25 Diagnostic Findings [facility] [place], [place] [phone] XRay Report Patient: JEREL HERNÁNDEZ HAdmit Date: 05/13/19 MR#: [id number]: [id number] [facility] Acct ID:[id number]: Date: 1940[facility] Zip: [place] [address] Age: 78Location: ED Sex: M Room/Bed: Att Phy: Diagnosis: CHOKING Annalee Phy: Guanako Gunderson MDService Date: 05/13/19 Fam Phy: Interpreting Phy: Edy Olivo MD Admit Phy: Ordering Phy: Reji Johnson MD cc: ~ XR chest 1V portable CLINICAL HISTORY: Dyspnea COMPARISON STUDY: 05/22/2018 FINDINGS: The heart is enlarged. There are postsurgical changes of a midline jacqueline rnotomy. There is elevation of the interstitium consistent with mild congestive failure/fluid overload. Ill-definition left heart border appears chronic. 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 This is likely postsurgical[ IMPRESSION: Radiographic evidence of mild congestive failure/fluid overload. Electronically signed by: Edy Olivo M.D. 05/13/2019 7:49 PM Dictated: 05/13/191947 Transcribed: 05/13/191947 Code Status & VTE Plan Code Status Full code VTE Prophylaxis Plan VTE Prophylaxis will be ordered: Yes PG Care Time/CCT Total # of Minutes Spent Total Time Spent with Patient: Total time spent is greater than 50% in coordination of care (as documented) at patient's floor/unit and/or counseling patient: (1) CHF (congestive heart failure) Heart failure chronicity: unspecified Heart failure type: unspecified Qualified Code(s): I50.9 - Heart failure, unspecified
[2019-05-13] MEDS ORDERED: ALUMINUM/MAGNESIUM SUSP 30 ML UDC PO PRN (23:55)
[2019-05-13] MEDS ORDERED: ALPRAZolam 0.5 MG TABLET PO PRN (23:55)
[2019-05-13] MEDS ORDERED: GLUCOSE 40% GEL 15 GM TUBE PO PRN (23:55)
[2019-05-13] MEDS ORDERED: ACETAMINOPHEN 325 MG TAB PO PRN (23:55)
[2019-05-13] MEDS ORDERED: BETAMETHASONE DIP AUG (DIPROLENE) 0.05% CR 15 GM TUBE EXT PRN (23:55)
[2019-05-13] MEDS ORDERED: GLUCAGON FOR INJ 1 MG VIAL SQ PRN (23:55)
[2019-05-13] MEDS ORDERED: ONDANSETRON INJ 2 MG/ML 2 ML VIAL IV PRN (23:55)
[2019-05-13] MEDS ORDERED: CARBOHYDRATES FOR HYPOGLYCEMIA PO PRN (23:55)
[2019-05-13] MEDS ORDERED: DEXTROSE 50% 50 ML SYRINGE IV PRN (23:55)
[2019-05-13] MEDS ORDERED: ACETAMINOPHEN 1000 MG/100 ML IV IV PRN (23:55)
[2019-05-13] MEDS ORDERED: ALBUT/IPRATROP 3MG/0.5MG NEB 3 ML VIAL INH PRN (23:55)
[2019-05-13] MEDS ORDERED: GLUCOSE 10 TABS/TUBE PO PRN (23:55)
[2019-05-13] MEDS ORDERED: MAGNESIUM HYDROXIDE SUSP 30 ML UDC PO PRN (23:55)
[2019-05-14] MEDS ORDERED: INSULIN GLARGINE SOLOSTAR 100 UNITS/ML 3 ML PEN SQ SCH ×3 (00:30→21:00)
[2019-05-14] MEDS: VENLAFAXINE HCL XR 150 MG CAPXR PO SCH ×3 (00:38→20:42)
[2019-05-14] MEDS: TAPENTADOL HCL ER 50 MG TABCR PO SCH ×3 (00:47→20:39)
--- NOTE | 2019-05-14 03:52 | Emergency Department Note ---
Entered by Dorota Faith acting as a scribe for Reji Johnson MD ED Provider Note CHIEF COMPLAINT: Cough HISTORY OF PRESENT ILLNESS: The patient is a 78 year old male who presents to the Emergency Room with complaints of worsening cough. The patient states that at 900 this morning he was taking his fish oil pill and it got stuck and he was choking. He reports that he has had worsened cough and wheezing since the episode this morning. No relieving factors noted. He states that after the episode he had chest pain that alleviated throughout the day. The patient states that he called his family doc and they referred him to the ED. He states that he fails to wear his oxygen at home and nebulizer. He states that his oxygen is normally at 96. Per EMS, the patient was 88% on 3L of oxygen. Pt denies LOC, headache, fevers, chills, diaphoresis, visual changes, neck pain, chest pain, nausea, vomiting, abdominal pain, back pain, melena, hematochezia, urinary symptoms, numbness, weakness, lymphadenopathy, rash, or other complaints. REVIEW OF SYSTEMS: See HPI for pertinent positives and negatives. A total of ten systems were reviewed and were otherwise negative. PMHx/PSHx: COPD SOCIAL HISTORY: Patient lives at home. PHYSICAL EXAM: GENERAL: Awake, alert, well-appearing, in no distress HENT: Normocephalic, atraumatic. Oropharynx unremarkable. EYES: PERRL. Normal conjunctiva. Sclera non-icteric. NECK: Inspection normal. Non-tender. Supple. No nuchal rigidity. FROM. No mass es. RESPIRATORY: Rhonchi bilaterally. Increased work of breathing. No wheezes. No rales. Normal respiratory effort. CARDIAC: Normal rate. Normal rhythm. No murmurs. No rubs. Extremities warm and well perfused. Pulses equal. No JVD. GI: Soft, non-distended. No tenderness to palpation. No rebound or guarding. No masses. RECTAL: Deferred. MUSCULOSKELETAL: Atraumatic. Chest examination reveals no tenderness. There is no CVA tenderness to palpation. No joint edema. LOWER EXTREMITIES: +1 in left leg. Calves are non-tender. No edema. No discoloration. NEURO: Normal sensorium. No sensory or motor deficits noted. SKIN: No rash or jaundice noted. EMERGENCY DEPARTMENT COURSE: 1927: Past medical records reviewed. The patient was evaluated in room C7, and a complete history and physical examination were performed. 2031: I reevaluated the patient and updated him on his test results. The patient is currently resting comfortably. 2204: I reviewed the patient's case with Dr. Elizabeth- Hospitalist [facility]. He will evaluate the patient for further management. MEDICAL DECISION MAKING: Prior records/ancillary studies reviewed. Triage Nursing notes reviewed and agree them. The patient's history was concerning for shortness of breath and possible choking. Differential diagnosis: Etiologies such as aspiration, foreign body, pneumonia, COPD, reactive airway disease, CHF, cardiac ischemia, pulmonary embolism, pneumothorax, musculoskeletal, infections, gastrointestinal, as well as others were entertained. Physical examination: Mild increased work of breathing. The patient had rhonchi on both sides. ER treatment provided: Supplemental oxygen IV site Medrol DuoNeb IV Lasix On reassessment the patient felt better. Diagnostic interpretation by me: The electrocardiogram was negative for ischemia change. The labs revealed mild anemia on CBC. Mild thrombocytopenia as well. The patient had a negative troponin, chemistry panel, and LFTs. Imaging studies: Chest x-ray revealed congestive change. No foreign bodies noted. No pneumonia noted. The patient had increased work of breathing. He has congestive change on x-ray. He was hypoxic for EMS at 88%. He was treated as above based upon his history of COPD and CHF. He is now starting to diurese. Further management will be necessary in the hospital. Consultation: A consultation was placed with the hospitalist. The case was discussed and diagnostics were reviewed. The patient was evaluated in the ER for further treatment. IMPRESSION: Hypoxia and CHF. PLAN: Admitted. The scribe's documentation has been prepared under my direction and personally reviewed by me in its entirety. I confirm that the note above accurately reflects all work, treatment, procedures, and medical decision making performed by me. Impression & Plan Hypoxia, CHF (congestive heart failure) Past Med/Surg History Medical History Chronic respiratory failure with hypoxia, on home oxygen therapy (Chronic) Diabetes mellitus (Chronic) Chronic obstructive lung disease (Chronic) Chronic congestive heart failure (Chronic) Anxiety (Chronic) Depression (Chronic) Diverticula of colon (Chronic) TERI (obstructive sleep apnea) (Chronic) Dupuytren's contracture (Chronic) Hepatitis C Cirrhosis (Chronic) Gastric ulcer (Resolved) Social History Preferred Language: [place] Communication Ability: Effective Visual Impairment: Limited Hearing Ability: Normal Director Cloud Transformation Required: No Beliefs That Will Affect Care: None marital status: marital status details: seperated Current Living Situation: Alone current occupational status: retired Other Information That Helps Us Care for You: No Feels Safe at Home: Yes Safety Concerns: Feels Safe At This Time Smoking Status: Former smoker Do You Dip or Chew Tobacco: No Second Hand Exposure: No Tobacco Cessation Education Requested by Patient: No Hx Alcohol Use: No Hx Substance Use: No Results & Data Vital Signs Vital Signs - 24 hr 05/13/19 18:45 05/13/19 18:46 05/13/19 19:46 Temperature 36.8 C Temperature Source Oral Sepsis Recent Fever Within 48 Hours No Sepsis New/Unexplained Change in Mental Status No Sepsis Action Taken by Nursing No Action Required Pulse Rate 66 71 Pulse Rate [Apical] Pulse Rate from SpO2 Sensor 66 Respiratory Rate 17 18 Respiratory Effort / Characteristics Non-Labored Respiratory Depth Normal Respiratory Pattern Regular Blood Pressure 174/67 H 174/67 H Blood Pressure [Right Arm] Blood Pressure Mean 102 102 Blood Pressure Mean [Right Arm] Pulse Oximetry 97 98 96 Oxygen Delivery Method Nasal Cannula Nasal Cannula Nasal Cannula Oxygen Flow Rate 4 4 4 05/13/19 19:50 05/13/19 19:51 05/13/19 20:30 Temperature Temperature Source Sepsis Recent Fever Within 48 Hours Sepsis New/Unexplained Change in Mental Status Sepsis Action Taken by Nursing Pulse Rate 81 73 Pulse Rate [Apical] 66 Pulse Rate from SpO2 Sensor 66 73 Respiratory Rate 18 19 22 Respiratory Effort / Characteristics Respiratory Depth Respiratory Pattern Blood Pressure 149/70 H 149/64 H Blood Pressure [Right Arm] 149/70 H Blood Pressure Mean 96 92 Blood Pressure Mean [Right Arm] 96 Pulse Oximetry 96 96 97 Oxygen Delivery Method Nasal Cannula Nasal Cannula Nasal Cannula Oxygen Flow Rate 4 4 4 05/13/19 20:49 05/13/19 21:35 05/13/19 22:00 Temperature Temperature Source Sepsis Recent Fever Within 48 Hours Sepsis New/Unexplained Change in Mental Status Sepsis Action Taken by Nursing Pulse Rate 90 91 H Pulse Rate [Apical] 76 Pulse Rate from SpO2 Sensor 91 H 92 H Respiratory Rate 20 17 21 Respiratory Effort / Characteristics Non-Labored Respiratory Depth Respiratory Pattern Blood Pressure 179/83 H 154/120 H Blood Pressure [Right Arm] Blood Pressure Mean 115 131 Blood Pressure Mean [Right Arm] Pulse Oximetry 96 96 95 Oxygen Delivery Method Nasal Cannula Nasal Cannula Nasal Cannula Oxygen Flow Rate 4 4 4 05/13/19 22:30 Temperature Temperature Source Sepsis Recent Fever Within 48 Hours Sepsis New/Unexplained Change in Mental Status Sepsis Action Taken by Nursing Pulse Rate 88 Pulse Rate [Apical] Pulse Rate from SpO2 Sensor Respiratory Rate 18 Respiratory Effort / Characteristics Respiratory Depth Respiratory Pattern Blood Pressure 152/63 H Blood Pressure [Right Arm] Blood Pressure Mean 92 Blood Pressure Mean [Right Arm] Pulse Oximetry Oxygen Delivery Method Oxygen Flow Rate Home Medications Current Medication List: was personally reviewed by me Laboratory Data Attestation: I reviewed the patient's lab results. Result diagrams: 05/13/19 19:25 05/13/19 19:25 Lab Results 05/13/19 05/13/19 05/13/19 Range/Units 19:25 19:25 19:25 WBC 8.44 (4.8-10.8) K/uL RBC 4.39 L (4.7-6.1) M/uL Hgb 13.7 L (14.0-18.0) g/dL Hct 39.6 L (42-52) % MCV 90.2 (80-100) fL MCH 31.2 (25-34) pg MCHC 34.6 (32-36) g/dL RDW Std Deviation 41.4 (36.4-46.3) fL RDW Coeff of Ja 12.6 (11.5-14.5) % Plt Count 78 L (130-400) K/uL MPV 11.2 H (7.4-10.4) fL Immature Gran % (Auto) 0.1 % Neut % (Auto) 85.4 % Lymph % (Auto) 7.3 % [place] % (Auto) 6.4 % Eos % (Auto) 0.7 % Baso % (Auto) 0.1 % Immature Gran # (Auto) 0.01 (0.00-0.02) K/uL Neut # (Auto) 7.20 H (1.4-6.5) K/uL Lymph # (Auto) 0.62 L (1.2-3.4) K/uL [place] # (Auto) 0.54 (0.11-0.59) K/uL Eos # (Auto) 0.06 (0-0.5) K/uL Baso # (Auto) 0.01 (0-0.2) K/uL PT 10.3 (9.0-12.0) Seconds INR 1.0 (0.9-1.1) APTT 26.6 (21.0-31.0) Seconds PTT Ratio 1.0 Sodium 134 L (136-145) mmol/L Potassium 4.5 (3.5-5.1) mmol/L Chloride 96 L (98-107) mmol/L Carbon Dioxide 32 (21-32) mmol/L Anion Gap 7.0 (3-11) BUN 11 (7-18) mg/dl Creatinine 0.87 (0.6-1.4) mg/dl Est Cr Clr Drug Dosing 90.6 ml/min Est GFR ( Amer) 95.8 Est GFR (Non-Af Amer) 82.7 BUN/Creatinine Ratio 12.9 (10-20) Glucose 115 H (70-99) mg/dl Calcium 9.6 (8.5-10.1) mg/dl Magnesium 1.9 (1.8-2.4) mg/dl Total Bilirubin 0.4 (0.2-1) mg/dl AST 19 (15-37) U/L ALT 24 (12-78) U/L Alkaline Phosphatase 83 (45-117) U/L Troponin I < 0.015 (0-0.045) ng/ml Total Protein 7.2 (6.4-8.2) gm/dl Albumin 4.0 (3.4-5.0) gm/dl Globulin 3.2 (2.5-4.0) gm/dl Albumin/Globulin Ratio 1.3 (0.9-2) Administered Medications Alprazolam (Xanax) 0.5 mg PO TID PRN PRN Reason: Anxiety Stop: 06/12/19 23:54 Last Admin: 05/14/19 00:47 Dose: 0.5 mg Documented by: [id number] Insulin Glargine (Lantus Solostar Pen) 16 units SQ HS ANTHONY Stop: 06/13/19 20:59 Last Admin: 05/14/19 00:59 Dose: 16 units Documented by: [id number] Cosigned by: [id number] Tapentadol (Nucynta Er) 100 mg PO Q12@0800,2000 [facility] Stop: 05/27/19 23:54 Last Admin: 05/14/19 00:47 Dose: 100 mg Documented by: [id number] Venlafaxine HCl (Effexor Extended Release) 150 mg PO BID ANTHONY Stop: 06/12/19 23:54 Last Admin: 05/14/19 00:38 Dose: 150 mg Documented by: [id number] Discontinued Medications Albuterol (Duoneb) 3 ml NEB NOW STA Stop: 05/13/19 20:26 Last Admin: 05/13/19 20:47 Dose: 3 ml Documented by: [id number] Furosemide (Lasix) 20 mg IV NOW STA Stop: 05/13/19 20:26 Last Admin: 05/13/19 20:51 Dose: 20 mg Documented by: [id number] Insulin Glargine (Lantus Solostar Pen) 16 units SQ TODAY@0030 ANTHONY Stop: 05/14/19 01:00 Last Admin: 05/14/19 01:12 Dose: 16 units Documented by: [id number] Cosigned by: [id number] Methylprednisolone (Solumedrol) 125 mg IV NOW STA Stop: 05/13/19 20:26 Last Admin: 05/13/19 20:50 Dose: 125 mg Documented by: [id number] Imaging Data Radiologist's Impression: Radiology results as stated below per my review and the radiologist's interpretation: XR chest 1V portable CLINICAL HISTORY: Dyspnea COMPARISON STUDY: 05/22/2018 FINDINGS: The heart is enlarged. There are postsurgical changes of a midline sternotomy. There is elevation of the interstitium consistent with mild congestive failure/fluid overload. Ill-definition left heart border appears chronic. 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 This is likely postsurgical[ IMPRESSION: Radiographic evidence of mild congestive failure/fluid overload. Electronically signed by: Edy Olivo M.D. 05/13/2019 7:49 PM ECG Data Attestation: I personally reviewed and interpreted this ECG as follows: Indication: SOB/dyspnea Rate (beats per minute): 66 Rhythm: sinus rhythm (1st degree) Findings: + other (Low voltage QRS) and + RBBB (incomplete); no ST depression and no ST elevation Comparison ECG Date: no prior available Blood Pressure Blood Pressure Findings: Elevated blood pressure Blood Pressure Disposition: Referred to patients primary care provider Discharge Plan Visit Data *Final* Discharge Date/Time: 05/13/19 23:36 Chief Complaint: Choking ED Provider: Reji Johnson Discharge Problem: Hypoxia, CHF (congestive heart failure) Patient Disposition: Admitted As Inpatient Discharge Instructions Interventions: ED Discharge Assessment Last Done: 05/13/19 23:36 Discharge Problem: CHF (congestive heart failure) Qualifiers: Heart failure type: unspecified Heart failure chronicity: unspecified Qualified Code(s): I50.9 - Heart failure, unspecified The scribe's documentation has been prepared under my direction and personally reviewed by me in its entirety. I confirm that the note above accurately reflects all work, treatment, procedures, and medical decision making performed by me.
[2019-05-14 06:32] LABS: Appearance Urine Clear (Clear); Bilirubin Urine Negative (Negative); Blood Urine Negative (Negative); Color Urine Dark Yellow; Glucose Urine UA 2+ (Negative); Ketones Urine Negative (Negative); Leukocyte Esterase Urine Negative (Negative); Nitrite Urine Negative (Negative); Protein Urine Negative (Negative); Specific Gravity Urine 1.018 (1.000-1.030); Urobilinogen Urine Negative (Negative); pH Urine 5.5 (4.5-7.5)
[2019-05-14 07:04] LABS: Hematocrit (blood only) 36.2 % (42-52); Hemoglobin 12.7 g/dL (14.0-18.0); Mean Corpuscular Hgb Conc 35.1 g/dL (32-36); Mean Corpuscular Volume 88.1 fL (80-100); RDW Coefficient of Variation 12.5 % (11.5-14.5); RDW Standard Deviation 40.6 fL (36.4-46.3); Red Blood Count 4.11 M/uL (4.7-6.1); White Blood Count 9.25 K/uL (4.8-10.8)
[2019-05-14 07:08] LABS: Mean Platelet Volume 10.6 fL (7.4-10.4); Platelet Count 71 K/uL (130-400)
[2019-05-14] MEDS: ALBUT/IPRATROP 3MG/0.5MG NEB 3 ML VIAL INH SCH ×4 (07:17→19:08)
[2019-05-14] MEDS: BUDESONIDE 0.5 MG/2 ML VIAL (PULMICORT) NEB SCH ×2 (07:17→19:06)
[2019-05-14 07:23] LABS: INR 1.1 (0.9-1.1); Partial Thromboplastin Time 28.4 Seconds (21.0-31.0)
[2019-05-14 07:31] LABS: Albumin Level 3.5 gm/dl (3.4-5.0); BUN Creatinine Ratio 14.3 (10-20); Calcium 9.5 mg/dl (8.5-10.1); Creatinine Clr Calc Pharmacy 72.9 ml/min; Est GFR (African American) 75.8; Est GFR (Non-African American) 65.4; Potassium 4.8 mmol/L (3.5-5.1)
[2019-05-14] MEDS: INSULIN ASPART 100 UNITS/ML 3 ML PEN SC SCH ×5 (07:33→20:45)
[2019-05-14 07:34] LABS: Albumin Globulin Ratio 1.1 (0.9-2); Bilirubin,Total 0.5 mg/dl (0.2-1); Globulin 3.3 gm/dl (2.5-4.0); Total Protein 6.8 gm/dl (6.4-8.2)
[2019-05-14 07:42] LABS: Estimated Average Glucose 126 mg/dl
[2019-05-14 07:52] LABS: Basophils # (auto) 0.01 K/uL (0-0.2); Basophils % (auto) 0.1 %; Immature Granulocytes # (auto) 0.02 K/uL (0.00-0.02); Immature Granulocytes % (auto) 0.2 %; Lymphocytes # (auto) 0.24 K/uL (1.2-3.4); Lymphocytes % (auto) 2.6 %; Monocytes # (auto) 0.09 K/uL (0.11-0.59); Neutrophils # (auto) 8.89 K/uL (1.4-6.5); Neutrophils % (auto) 96.1 %
[2019-05-14] MEDS ORDERED: [UNRECOGNIZED DRUG - OTHER] SCH (08:00)
[2019-05-14] MEDS: CHOLECALCIFEROL 1,000 UNITS TAB PO SCH (08:15)
[2019-05-14] MEDS: AMLODIPINE BESYLATE 5 MG TAB PO SCH (08:15)
[2019-05-14] MEDS: MAGNESIUM OXIDE 400 MG TAB PO SCH (08:16)
[2019-05-14] MEDS: ASPIRIN 81 MG CHEW PO SCH (08:17)
[2019-05-14] MEDS: guaiFENesin 600 MG TABCR PO SCH ×2 (08:17→20:42)
[2019-05-14] MEDS: BusPIRone 15 MG TAB PO SCH (08:17)
[2019-05-14] MEDS: ALFUZOSIN HCL 10 MG TAB PO SCH (08:18)
[2019-05-14] MEDS: FINASTERIDE 5 MG TAB PO SCH (08:18)
[2019-05-14] MEDS: VITAMIN B COMPLEX TAB PO SCH (08:19)
[2019-05-14] MEDS: SPIRONOLACTONE 25 MG TAB PO SCH (08:19)
[2019-05-14] MEDS: GABAPENTIN 800 MG TAB PO SCH ×4 (08:19→20:42)
[2019-05-14] MEDS: FLUTICASONE PROPIONATE NA SPR 16 GM BTL NAE SCH (08:20)
[2019-05-14] MEDS: CEROVITE ADV FORMULA TAB PO SCH (08:20)
[2019-05-14] MEDS: CALCIUM 600MG + VIT D 400 IU TAB PO SCH (08:20)
[2019-05-14] MEDS: HEPARIN SOD 5,000 UNIT/0.5 ML VIAL SQ SCH ×2 (08:20→20:42)
[2019-05-14] MEDS: FUROSEMIDE 40 MG in SYRINGE 0 ML IV SCH (08:21)
[2019-05-14] MEDS ORDERED: Nursing to Pharmacy Communication STA (11:40)
[2019-05-14] MEDS ORDERED: INSULIN ASPART 100 UNITS/ML 3 ML PEN SC ONE (12:00)
--- NOTE | 2019-05-14 12:46 | Hospitalist Progress Note ---
Date of Service May 14, 2019 Assessment & Plan (1) Chronic obstructive lung disease: Sees Dr. Tomas as outpatient. Per o/p notes, he has severe COPD, though I cannot find PFTs. Presently with exacerbation with increased shortness of breath and mildly productive cough. CXR on 05/13 was negative for infiltrate. At baseline, uses 3L NC. - Steroids, abx, DuoNebs, guaifenasin (2) CHF (congestive heart failure): Chronic diastolic heart failure. Possible mild acute component with CXR showing mild hypervolemia; however, his weight is lower than at his prior outpatient visits (baseline weight ~100kg / 221 lbs) and he has only trace edema on exam. Echo in 2015 showed LVEF 65-70% without valvular abnormalities. - Per patient, he has been on furosemide in the past (and even has some at home), but has not been taking it. - Continue Lasix 40 mg IV daily - Continue spironolactone 25 mg p.o. daily. - Repeat echo done, with read pending - Possible referral to Heart Failure Clinic? (3) Chronic respiratory failure with hypoxia, on home oxygen therapy: See above (4) Diabetes mellitus: A1c was 6.0% this admission. - Hold metformin. - Continue Lantus - Sliding scale insulin - Glycemic consult while on steroids (5) Diabetic peripheral neuropathy associated with type 2 diabetes mellitus: Sees Dr. Madrid as outpatient. 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 Never had any issues with decompensation however. - Likely the cause of his thrombocytopenia. - Continue spironolactone (7) Anxiety with depression: No concerns at present. - Continue alprazolam, buspirone, gabapentin, trazodone, and venlafaxine ER. (8) TERI (obstructive sleep apnea): Patient has not always been compliant with CPAP. - We will prescribe CPAP as needed. (9) BPH (benign prostatic hyperplasia): Follows with Dr. Henriquez. No LUTS. - Continue alfuzosin ER and finasteride (10) Hyperlipidemia LDL goal <70: - Continue simvastatin 40 mg at bedtime. (11) Hypotestosteronism: - Continue testosterone 1.62% transdermal gel packet (12) DVT prophylaxis: Heparin 5000 BID - If platelets fall below 50k, will only use SCDs Subjective Feels his breathing is improved from admission. Minimal cough, not very productive. Review of Systems Review of Systems: All systems reviewed & are unremarkable except as noted in HPI & below Physical Exam Constitutional: WD/WN, vitals as above Eyes: EOM intact bilaterally; no conjunctival abnormality ENMT: external ear and nose normal, oropharynx normal Neck: trachea midline, no thyromegaly normal visual inspection Respiratory: normal respiratory effort, lungs clear to auscultation no res piratory distress Cardiovascular: Rate/Rhythm: regular rate and regular rhythm Extremities: + edema (Trace in ankles.) Gastrointestinal (Abdomen): Inspection/Auscultation: abdomen normal to inspection; abdomen not distended Musculoskeletal: no cyanosis or clubbing, extremities motor strength 5/5 Skin: no rashes, warm and dry Neurologic: moves all extremities and awake Psychiatric: Orientation: alert, oriented to person and cooperative Results & Data Vital Signs (Past 12 Hours) Vital Signs Temp Pulse Pulse Pulse Resp BP Pulse Ox 05/14/19 11:20 36.6 C 72 18 131/56 L 93 05/14/19 11:16 84 18 93 05/14/19 07:35 88 05/14/19 07:18 73 18 91 05/14/19 07:08 36.6 C 74 18 133/63 93 05/14/19 04:00 36.5 C 61 16 128/65 95 PG Care Time/CCT Total # of Minutes Spent Total Time Spent with Patient: Total time spent is greater than 50% in coordination of care (as documented) at patient's floor/unit and/or counseling patient: (1) CHF (congestive heart failure) Heart failure chronicity: unspecified Heart failure type: unspecified Qualified Code(s): I50.9 - Heart failure, unspecified
[2019-05-14] MEDS ORDERED: AZITHROMYCIN 250 MG TAB PO ONE (13:08)
[2019-05-14] MEDS ORDERED: PHARMACY GLYCEMIC MGMT CONSULT PRN (13:41)
[2019-05-14] MEDS ORDERED: INSULIN GLARGINE SOLOSTAR 100 UNITS/ML 3 ML PEN SQ ONE (14:00)
[2019-05-14] MEDS: predniSONE 20 MG TAB PO SCH (14:03)
--- NOTE | 2019-05-14 14:06 | Pharmacy Report ---
Glycemic Control Consultation - Date of Service May 14, 2019 - Scope Scope: Glycemic Pharmacist consulted by Dr Li on 05/14 for glycemic control and to write orders per [facility] inpatient glycemic control protocol - Objective Weight: 105.2 kg Accuchecks BSG (last 24hrs): 05/13/19 05/14/19 05/14/19 19:25 00:58 06:43 Glucose 115 H 199 H POC Glucose 288 H 05/14/19 05/14/19 07:12 11:17 Glucose POC Glucose 208 H 407 H* Laboratory Data (last 24hrs): 05/13/19 05/14/19 19:25 06:43 Potassium 4.5 4.8 Carbon Dioxide 32 28 Anion Gap 7.0 9.0 Creatinine 0.87 1.08 Est Cr Clr Drug Dosing 90.6 72.9 HbA1c: Hemoglobin A1c 6.0 % (4.5-5.6) H 05/14/19 06:43 - Recent Pertinent Medications Outpatient Anti-diabetic Regimen: * Lantus 24 units qHS * Novolog BID per sliding scale * Metformin 1 gm BID * A1c = 6 % 05/14/19 The patient is currently receiving: * Basal insulin: Lantus 16 units every 24 hours * Correctional Insulin: Novolog Correction per scale ACHS Goal Range: Low 100 mg/dL - High 150 mg/dL Correction Factor: 20 mg/dL/unit * Prandial insulin: Per carb ratio of 1 unit per 8 grams CHO consumed * Oral Agents: on hold at this time Risk Factors for Insulin Resistance: * Steroids: Solu-medrol 125 mg IV x 1 last night, prednisone 40 mg daily (started this afternoon) * Infection: COPD exac, on Zithromax po * Diet: type 2 diabetes - Assessment & Plan Assessment & Plan: ASSESSMENT: * 78 y/o male admitted overnight for c/o worsening SOB, found to be in heart edgardo lure and with COPD exacerbation. Patient uses basal insulin + sliding scale insulin in addition to metformin as an outpatient and A1c is very well controlled. BSG on admission was 115 mg/dL. * BSGs have now increased significantly while on steroids. Will plan to increase basal + bolus doses based on insulin calculator estimates using wt/stress level of 2 for basal insulin and 3 for bolus insulin. Patient will require at least ~40 units to cover the 40 mg of prednisone, on top of outpatient requirements. Est TDD ~ 90 units today. * Will consider transitioning to once daily NPH from tomorrow AM to cover qAM prednisone PLAN FOR INPATIENT GLYCEMIC CONTROL: * Continue to hold outpatient oral diabetes medications * Basal insulin - increase * Lantus 18 units x 1 now * Lantus BID per the following scale: * 10 units for BSG < 150 * 18 units for BSG 150 or above * Bolus insulin - tighten CF/CR * NovoLog per scale ACHS or Q6hrs while NPO + 0200 check in case more correctional insulin warranted * Goal Range: Low 100 mg/dL - High 150 mg/dL * Correction Factor: 15 mg/dL/unit * Nutritional / Prandial insulin per carb ratio of 1 unit per 5 grams CHO consumed Discharge Recommendations: * A1c indicates excellent outpatient control. Resume outpatient regimen on discharge as long as patient not experiencing hypoglycemia at home Thank you.
[2019-05-14] MEDS: SIMVASTATIN 40 MG TAB PO SCH (20:42)
[2019-05-14] MEDS: TRAZODONE HCL 50 MG TAB PO SCH (20:42)
[2019-05-14] MEDS ORDERED: HEPARIN SOD 5,000 UNIT/0.5 ML VIAL SQ SCH (21:00)
[2019-05-15] MEDS ORDERED: INSULIN ASPART 100 UNITS/ML 3 ML PEN SC ONE (02:00)
[2019-05-15 06:12] LABS: Hematocrit (blood only) 32.6 % (42-52); Hemoglobin 11.3 g/dL (14.0-18.0); Mean Corpuscular Hgb Conc 34.7 g/dL (32-36); Mean Corpuscular Volume 88.3 fL (80-100); RDW Coefficient of Variation 12.7 % (11.5-14.5); RDW Standard Deviation 41.2 fL (36.4-46.3); Red Blood Count 3.69 M/uL (4.7-6.1)
[2019-05-15 06:28] LABS: INR 1.1 (0.9-1.1); Prothrombin Time 10.8 Seconds (9.0-12.0)
[2019-05-15 06:35] LABS: Mean Platelet Volume 10.6 fL (7.4-10.4); Platelet Count 66 K/uL (130-400)
[2019-05-15 06:36] LABS: Immature Granulocytes # (auto) 0.01 K/uL (0.00-0.02); Immature Granulocytes % (auto) 0.1 %; Lymphocytes # (auto) 0.53 K/uL (1.2-3.4); Lymphocytes % (auto) 7.3 %; Monocytes # (auto) 0.41 K/uL (0.11-0.59); Monocytes % (auto) 5.6 %; Neutrophils # (auto) 6.35 K/uL (1.4-6.5)
[2019-05-15 06:47] LABS: Albumin Globulin Ratio 1.2 (0.9-2); Albumin Level 3.4 gm/dl (3.4-5.0); BUN Creatinine Ratio 22.8 (10-20); Bilirubin,Total 0.4 mg/dl (0.2-1); Calcium 8.8 mg/dl (8.5-10.1); Creatinine Clr Calc Pharmacy 76.5 ml/min; Est GFR (African American) 80.3; Est GFR (Non-African American) 69.3; Globulin 2.8 gm/dl (2.5-4.0); Magnesium 2.1 mg/dl (1.8-2.4); Potassium 4.3 mmol/L (3.5-5.1); Total Protein 6.2 gm/dl (6.4-8.2)
[2019-05-15] MEDS: BUDESONIDE 0.5 MG/2 ML VIAL (PULMICORT) NEB SCH ×2 (07:12→19:19)
[2019-05-15] MEDS: ALBUT/IPRATROP 3MG/0.5MG NEB 3 ML VIAL INH SCH ×4 (07:12→19:19)
[2019-05-15] MEDS: INSULIN ASPART 100 UNITS/ML 3 ML PEN SC SCH ×4 (07:37→20:24)
[2019-05-15] MEDS: INSULIN HUMAN NPH SC SCH (07:53)
[2019-05-15] MEDS: predniSONE 20 MG TAB PO SCH (07:55)
[2019-05-15] MEDS: TAPENTADOL HCL ER 50 MG TABCR PO SCH ×2 (07:55→20:20)
[2019-05-15] MEDS: CEROVITE ADV FORMULA TAB PO SCH (07:56)
[2019-05-15] MEDS: SPIRONOLACTONE 25 MG TAB PO SCH (07:56)
[2019-05-15] MEDS: VITAMIN B COMPLEX TAB PO SCH (07:56)
[2019-05-15] MEDS: FINASTERIDE 5 MG TAB PO SCH (07:57)
[2019-05-15] MEDS: HEPARIN SOD 5,000 UNIT/0.5 ML VIAL SQ SCH ×2 (07:58→20:26)
[2019-05-15] MEDS: AMLODIPINE BESYLATE 5 MG TAB PO SCH (07:59)
[2019-05-15] MEDS: CALCIUM 600MG + VIT D 400 IU TAB PO SCH (07:59)
[2019-05-15] MEDS: ALFUZOSIN HCL 10 MG TAB PO SCH (08:00)
[2019-05-15] MEDS: CHOLECALCIFEROL 1,000 UNITS TAB PO SCH (08:00)
[2019-05-15] MEDS: VENLAFAXINE HCL XR 150 MG CAPXR PO SCH ×2 (08:00→20:22)
[2019-05-15] MEDS: guaiFENesin 600 MG TABCR PO SCH ×2 (08:00→20:21)
[2019-05-15] MEDS: MAGNESIUM OXIDE 400 MG TAB PO SCH (08:01)
[2019-05-15] MEDS: FUROSEMIDE 40 MG in SYRINGE 0 ML IV SCH (08:01)
[2019-05-15] MEDS: BusPIRone 15 MG TAB PO SCH (08:02)
[2019-05-15] MEDS: ASPIRIN 81 MG CHEW PO SCH (08:02)
[2019-05-15] MEDS: GABAPENTIN 800 MG TAB PO SCH ×4 (08:03→20:20)
[2019-05-15] MEDS: AZITHROMYCIN 250 MG TAB PO SCH (08:03)
[2019-05-15] MEDS: FLUTICASONE PROPIONATE NA SPR 16 GM BTL NAE SCH (08:04)
--- NOTE | 2019-05-15 09:22 | Pharmacy Report ---
Pharmacy Glycemic Short Note 2 - Date of Service May 15, 2019 - Glycemic Short BSG Results (Last 24 hours): 05/14/19 05/14/19 05/14/19 11:17 16:22 20:01 Glucose POC Glucose 407 H* 254 H 280 H 05/15/19 05/15/19 05/15/19 02:13 05:53 07:12 Glucose 108 H POC Glucose 173 H 117 H OUTPATIENT ANTIDIABETIC REGIMEN: * Lantus 24 units qHS * Novolog BID per sliding scale * Metformin 1 gm BID * A1c = 6 % 05/14/19 ASSESSMENT: 05/15 * Patient rec'd 98 units of insulin yesterday (36 of this being basal) * BSGs are MUCH improved today and I expect insulin needs to decrease without additional Solu-medrol on board * Will decrease Lantus back to outpatient dose and provide 0.4 units/kg of NPH to coincide with 40 mg of prednisone * Novolog parameters will be loosened slightly this AM but will need to be loosened later today as NPH starts working 05/14 * 78 y/o male admitted overnight for c/o worsening SOB, found to be in heart failure and with COPD exacerbation. Patient uses basal insulin + sliding scale insulin in addition to metformin as an outpatient and A1c is very well controlled. BSG on admission was 115 mg/dL. * BSGs have now increased significantly while on steroids. Will plan to i ncrease basal + bolus doses based on insulin calculator estimates using wt/stress level of 2 for basal insulin and 3 for bolus insulin. Patient will require at least ~40 units to cover the 40 mg of prednisone, on top of outpatient requirements. Est TDD ~ 90 units today. * Will consider transitioning to once daily NPH from tomorrow AM to cover qAM prednisone PLAN FOR INPATIENT GLYCEMIC CONTROL: * Continue to hold outpatient oral diabetes medications * NPH 40 units qAM to coincide with prednisone 40 mg * Basal insulin - decrease to outpatient dose * Lantus qHS per the following scale: * Give 12 units for BSG < 100 * Give 18 units for BSG 100 - 150 * Give 24 units for BSG 150 mg/dL or above * Bolus insulin - loosen CF/CR with breakfast, further starting w/ lunch as NPH will start to peak * NovoLog per scale ACHS or Q6hrs while NPO * Goal Range: Low 100 mg/dL - High 150 mg/dL * Correction Factor: 20 mg/dL/unit * Nutritional / Prandial insulin per carb ratio of 1 unit per 9 grams CHO consumed PLAN FOR DISCHARGE: * A1c indicates excellent outpatient control. Resume outpatient regimen on discharge as long as patient not experiencing hypoglycemia at home
--- NOTE | 2019-05-15 14:51 | Hospitalist Progress Note ---
Date of Service May 15, 2019 Assessment & Plan (1) Chronic obstructive lung disease: Sees Dr. oTmas as outpatient. Per o/p notes, he has severe COPD, though I cannot find PFTs. Presently with exacerbation with increased shortness of breath and mildly productive cough. CXR on 05/13 was negative for infiltrate. At baseline, uses 3L NC. - Steroids, abx, DuoNebs, guaifenesin - O2 is currently at home level - Dispo: I thought he could go home today, but he did not think he was ready. Possible [facility] referral and hopeful discharge tomorrow. (2) CHF (congestive heart failure): Chronic diastolic heart failure. Possible mild acute component with CXR showing mild hypervolemia. Weight is ~5kg above baseline (which is ~100 kg), though he has only trace edema on exam. 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 - Per patient, he has been on furosemide in the past (and even has some at home), but has not been taking it right now. - Continue Lasix 40 mg IV daily - Continue spironolactone 25 mg p.o. daily. - Possible referral to [facility]? (3) Chronic respiratory failure with hypoxia, on home oxygen therapy: See above (4) Diabetes mellitus: A1c was 6.0% this admission. - Hold metformin. - Continue Lantus - Sliding scale insulin - Glycemic consult while on steroids (5) Diabetic peripheral neuropathy associated with type 2 diabetes mellitus: Sees Dr. Madrid as outpatient. 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 Never had any issues with decompensation however. - Likely the cause of his thrombocytopenia. - Continue spironolactone (7) Anxiety with depression: No concerns at present. - Continue alprazolam, buspirone, gabapentin, trazodone, and venlafaxine ER. (8) TERI (obstructive sleep apnea): Patient has not always been compliant with CPAP. - We will prescribe CPAP as needed. (9) BPH (benign prostatic hyperplasia): Follows with Dr. Henriquez. No LUTS. - Continue alfuzosin ER and finasteride (10) Hyperlipidemia LDL goal <70: - Continue simvastatin 40 mg at bedtime. (11) Hypotestosteronism: - Continue testosterone 1.62% transdermal gel packet (12) DVT prophylaxis: Heparin 5000 BID - If platelets fall below 50k, will only use SCDs Subjective Feels his breathing is somewhat improved. Still with a dry cough. Review of Systems Review of Systems: All systems reviewed & are unremarkable except as noted in HPI & below Physical Exam Constitutional: WD/WN, vitals as above Eyes: EOM intact bilaterally; no conjunctival abnormality ENMT: external ear and nose normal, oropharynx normal Neck: trachea midline, no thyromegaly normal visual inspection Respiratory: normal respiratory effort, lungs clear to auscultation no respiratory distress Cardiovascular: Rate/Rhythm: regular rate and regular rhythm Extremities: no edema Gastrointestinal (Abdomen): Inspection/Auscultation: abdomen normal to inspection; abdomen not distended Musculoskeletal: no cyanosis or clubbing, extremities motor strength 5/5 Skin: no rashes, warm and dry Neurologic: moves all extremities and awake Psychiatric: Orientation: alert, oriented to person and cooperative Results & Data Vital Signs (Past 12 Hours) Vital Signs Temp Pulse Pulse Resp BP Pulse Ox 05/15/19 10:55 67 18 96 05/15/19 10:50 36.8 C 67 18 118/57 L 90 05/15/19 07:30 60 05/15/19 07:12 87 18 95 05/15/19 06:53 36.6 C 59 L 23 132/63 98 PG Care Time/CCT Total # of Minutes Spent Total Time Spent with Patient: Total time spent is greater than 50% in coordination of care (as documented) at patient's floor/unit and/or counseling patient: (1) CHF (congestive heart failure) Heart failure chronicity: unspecified Heart failure type: unspecified Qualified Code(s): I50.9 - Heart failure, unspecified
[2019-05-15] MEDS: TRAZODONE HCL 50 MG TAB PO SCH (20:21)
[2019-05-15] MEDS: SIMVASTATIN 40 MG TAB PO SCH (20:22)
[2019-05-15] MEDS: INSULIN GLARGINE SOLOSTAR 100 UNITS/ML 3 ML PEN SQ SCH (20:22)
[2019-05-16 06:30] LABS: BUN Creatinine Ratio 26.1 (10-20); Calcium 8.6 mg/dl (8.5-10.1); Creatinine Clr Calc Pharmacy 85.6 ml/min; Est GFR (Non-African American) 79.4; Potassium 4.2 mmol/L (3.5-5.1)
[2019-05-16] MEDS: BUDESONIDE 0.5 MG/2 ML VIAL (PULMICORT) NEB SCH ×2 (06:53→18:55)
[2019-05-16] MEDS: ALBUT/IPRATROP 3MG/0.5MG NEB 3 ML VIAL INH SCH ×4 (06:53→18:55)
[2019-05-16] MEDS: INSULIN HUMAN NPH SC SCH (07:47)
[2019-05-16] MEDS: INSULIN ASPART 100 UNITS/ML 3 ML PEN SC SCH ×4 (07:49→20:44)
[2019-05-16] MEDS: CHOLECALCIFEROL 1,000 UNITS TAB PO SCH (07:53)
[2019-05-16] MEDS: FUROSEMIDE 40 MG in SYRINGE 0 ML IV SCH (07:53)
[2019-05-16] MEDS: AMLODIPINE BESYLATE 5 MG TAB PO SCH (07:53)
[2019-05-16] MEDS: TAPENTADOL HCL ER 50 MG TABCR PO SCH ×2 (07:53→20:33)
[2019-05-16] MEDS: CEROVITE ADV FORMULA TAB PO SCH (07:54)
[2019-05-16] MEDS: GABAPENTIN 800 MG TAB PO SCH ×4 (07:54→20:33)
[2019-05-16] MEDS: ALFUZOSIN HCL 10 MG TAB PO SCH (07:54)
[2019-05-16] MEDS: AZITHROMYCIN 250 MG TAB PO SCH (07:55)
[2019-05-16] MEDS: SPIRONOLACTONE 25 MG TAB PO SCH (07:55)
[2019-05-16] MEDS: BusPIRone 15 MG TAB PO SCH (07:55)
[2019-05-16] MEDS: guaiFENesin 600 MG TABCR PO SCH ×2 (07:55→20:35)
[2019-05-16] MEDS: CALCIUM 600MG + VIT D 400 IU TAB PO SCH (07:55)
[2019-05-16] MEDS: VITAMIN B COMPLEX TAB PO SCH (07:58)
[2019-05-16] MEDS: MAGNESIUM OXIDE 400 MG TAB PO SCH (07:58)
[2019-05-16] MEDS: predniSONE 20 MG TAB PO SCH (07:58)
[2019-05-16] MEDS: FINASTERIDE 5 MG TAB PO SCH (07:58)
[2019-05-16] MEDS: ASPIRIN 81 MG CHEW PO SCH (07:59)
[2019-05-16] MEDS: FLUTICASONE PROPIONATE NA SPR 16 GM BTL NAE SCH (07:59)
[2019-05-16] MEDS: VENLAFAXINE HCL XR 150 MG CAPXR PO SCH ×2 (07:59→20:34)
[2019-05-16] MEDS: HEPARIN SOD 5,000 UNIT/0.5 ML VIAL SQ SCH ×2 (08:01→20:43)
--- NOTE | 2019-05-16 13:13 | Pharmacy Report ---
Pharmacy Glycemic Short Note 2 - Date of Service May 16, 2019 - Glycemic Short BSG Results (Last 24 hours): 05/15/19 05/15/19 05/16/19 16:33 20:15 05:37 Glucose 74 POC Glucose 171 H 170 H 05/16/19 05/16/19 07:23 11:22 Glucose POC Glucose 82 296 H OUTPATIENT ANTIDIABETIC REGIMEN: * Lantus 24 units qHS * Novolog BID per sliding scale * Metformin 1 gm BID * A1c = 6 % 05/14/19 ASSESSMENT: 05/16 * Patient received 86 units of insulin yesterday (64 of basal) * BSGs were improved yesterday ranging from 108-171 * To continue NPH with prednisone administration * Carb ratio loosened yesterday- will tighten slightly today, elevated lunch BSG * Slightly reduced lantus scale for this evening as fasting BSG 74 this morning. 05/15 * Patient rec'd 98 units of insulin yesterday (36 of this being basal) * BSGs are MUCH improved today and I expect insulin needs to decrease without additional Solu-medrol on board * Will decrease Lantus back to outpatient dose and provide 0.4 units/kg of NPH to coincide with 40 mg of prednisone * Novolog parameters will be loosened slightly this AM but will need to be loosened later today as NPH starts working 05/14 * 78 y/o male admitted overnight for c/o worsening SOB, found to be in heart failure and with COPD exacerbation. Patient uses basal insulin + sliding scale insulin in addition to metformin as an outpatient and A1c is very well controlled. BSG on admission was 115 mg/dL. * BSGs have now increased significantly while on steroids. Will plan to increase basal + bolus doses based on insulin calculator estimates using wt/stress level of 2 for basal insulin and 3 for bolus insulin. Patient will require at least ~40 units to cover the 40 mg of prednisone, on top of outpatient requirements. Est TDD ~ 90 units today. * Will consider transitioning to once daily NPH from tomorrow AM to cover qAM prednisone PLAN FOR INPATIENT GLYCEMIC CONTROL: * Continue to hold outpatient oral diabetes medications * NPH 40 units qAM to coincide with prednisone 40 mg * Basal insulin - decrease to outpatient dose * Lantus qHS per the following scale: * Give 12 units for BSG < 100 * Give 18 units for BSG 100 - 180 * Give 20 units for BSG 180 mg/dL or above * Bolus insulin - loosen CF/CR with breakfast, further starting w/ lunch as NPH will start to peak * NovoLog per scale ACHS or Q6hrs while NPO * Goal Range: Low 100 mg/dL - High 150 mg/dL * Correction Factor: 20 mg/dL/unit * Nutritional / Prandial insulin per carb ratio of 1 unit per 8 grams CHO consumed PLAN FOR DISCHARGE: * A1c indicates excellent outpatient control. Resume outpatient regimen on discharge as long as patient not experiencing hypoglycemia at home
[2019-05-16] MEDS: TRAZODONE HCL 50 MG TAB PO SCH (20:34)
[2019-05-16] MEDS: SIMVASTATIN 40 MG TAB PO SCH (20:36)
[2019-05-16] MEDS: INSULIN GLARGINE SOLOSTAR 100 UNITS/ML 3 ML PEN SQ SCH (20:45)
--- NOTE | 2019-05-16 21:06 | Hospitalist Progress Note ---
Date of Service May 16, 2019 Assessment & Plan (1) Chronic obstructive lung disease: Sees Dr. Tomas as outpatient. Per o/p notes, he has severe COPD, though I cannot find PFTs. Presently with exacerbation with increased shortness of breath and mildly productive cough. CXR on 05/13 was negative for infiltrate. At baseline, uses 3L NC. - Steroids, abx, DuoNebs, guaifenesin - O2 is currently at home level Doubt diagnosis of CHF: echo does not reveeal diastolic dysfunction. Fluid may be from ascities and liver failure. Will continue with spironolactone and lasix. Will likely require a 40:100 ratio at discharge. (2) CHF (congestive heart failure): Chronic diastolic heart failure. Possible mild acute component with CXR showing mild hypervolemia. Weight is ~5kg above baseline (which is ~100 kg), though he has only trace edema on exam. 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 - Per patient, he has been on furosemide in the past (and even has some at home), but has not been taking it right now. - Continue Lasix 40 mg IV daily - Continue spironolactone 25 mg p.o. daily. (3) Chronic respiratory failure with hypoxia, on home oxygen therapy: See above (4) Diabetes mellitus: A1c was 6.0% this admission. - Hold metformin. - Continue Lantus - Sliding scale insulin - Glycemic consult while on steroids (5) Diabetic peripheral neuropathy associated with type 2 diabetes mellitus: Sees Dr. Madrid as outpatient. 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 Never had any issues with decompensation however. - Likely the cause of his thrombocytopenia. - Continue spironolactone (7) Anxiety with depression: No concerns at present. - Continue alprazolam, buspirone, gabapentin, trazodone, and venlafaxine ER. (8) TERI (obstructive sleep apnea): Patient has not always been compliant with CPAP. - We will prescribe CPAP as needed. (9) BPH (benign prostatic hyperplasia): Follows with Dr. Henriquez. No LUTS. - Continue alfuzosin ER and finasteride (10) Hyperlipidemia LDL goal <70: - Continue simvastatin 40 mg at bedtime. (11) Hypotestosteronism: - Continue testosterone 1.62% transdermal gel packet (12) DVT prophylaxis: Heparin 5000 BID - If platelets fall below 50k, will only use SCDs Patient requires transportation for discharge. Unsure if able to transport today. His weight still is not at his dry weight. He has decreased to 103 from 105 kg. Will monitor for one more day. Spent 35 minutes in management of patient. Subjective 78 yo male reports feeling better. Still having some shortness of breath. Patient denies any new symptoms. Review of Systems Review of Systems: The patient denies lower extremity swelling, sore throat, fevers, chills, sweats, nausea, vomiting, diarrhea , constipation, abdominal pain, pelvic pain, blood in urine or stool, dysuria, urinary frequency or urgency, lightheadedness, dizziness, headache, memory loss, loss of consciousness, rash, abnormal bruising or bleeding, imbalance, focal or generalized weakness, numbness or tingling in arms or legs, generalized arthralgias or myalgias, back or neck pain, or night sweats. The review of systems is otherwise negative other than for that already noted above, and at least 10 systems have been reviewed. Physical Exam Physical Exam: Constitutional: WD/WN, vitals as above Eyes: EOM intact bilaterally; no conjunctival abnormality ENMT: external ear and nose normal, oropharynx normal Neck: trachea midline, no thyromegaly normal visual inspection Respiratory: normal respiratory effort, lungs clear to auscultation no respiratory distress Cardiovascular: Rate/Rhythm: regular rate and regular rhythm Extremities: no edema Gastrointestinal (Abdomen): Inspection/Auscultation: abdomen normal to inspection; abdomen not distended Musculoskeletal: no cyanosis or clubbing, extremities motor strength 5/5 Skin: no rashes, warm and dry Neurologic: moves all extremities and awake Psychiatric: Orientation: alert, oriented to person and cooperative Results & Data Vital Signs (Past 12 Hours) Vital Signs Temp Pulse Pulse Resp BP Pulse Ox 05/16/19 19:39 36.7 C 76 18 146/69 H 98 05/16/19 18:57 85 20 96 05/16/19 16:00 87 05/16/19 15:32 36.8 C 75 19 143/60 H 94 05/16/19 15:04 78 16 93 05/16/19 11:15 36.6 C 73 18 139/65 93 05/16/19 11:03 75 18 94 PG Care Time/CCT Total # of Minutes Spent Total Time Spent with Patient: Total time spent is greater than 50% in coordination of care (as documented) at patient's floor/unit and/or counseling patient: (1) CHF (congestive heart failure) Heart failure chronicity: unspecified Heart failure type: unspecified Qualified Code(s): I50.9 - Heart failure, unspecified
[2019-05-17] MEDS: ALBUT/IPRATROP 3MG/0.5MG NEB 3 ML VIAL INH SCH (07:20)
[2019-05-17] MEDS: BUDESONIDE 0.5 MG/2 ML VIAL (PULMICORT) NEB SCH (07:21)
[2019-05-17] MEDS: INSULIN ASPART 100 UNITS/ML 3 ML PEN SC SCH (07:57)
[2019-05-17] MEDS: INSULIN HUMAN NPH SC SCH (07:57)
[2019-05-17] MEDS: AMLODIPINE BESYLATE 5 MG TAB PO SCH (08:01)
[2019-05-17] MEDS: CHOLECALCIFEROL 1,000 UNITS TAB PO SCH (08:01)
[2019-05-17] MEDS: FUROSEMIDE 40 MG in SYRINGE 0 ML IV SCH (08:01)
[2019-05-17] MEDS: GABAPENTIN 800 MG TAB PO SCH (08:01)
[2019-05-17] MEDS: ALFUZOSIN HCL 10 MG TAB PO SCH (08:02)
[2019-05-17] MEDS: VENLAFAXINE HCL XR 150 MG CAPXR PO SCH (08:02)
[2019-05-17] MEDS: CALCIUM 600MG + VIT D 400 IU TAB PO SCH (08:02)
[2019-05-17] MEDS: FINASTERIDE 5 MG TAB PO SCH (08:02)
[2019-05-17] MEDS: guaiFENesin 600 MG TABCR PO SCH (08:02)
[2019-05-17] MEDS: BusPIRone 15 MG TAB PO SCH (08:03)
[2019-05-17] MEDS: MAGNESIUM OXIDE 400 MG TAB PO SCH (08:03)
[2019-05-17] MEDS: CEROVITE ADV FORMULA TAB PO SCH (08:03)
[2019-05-17] MEDS: predniSONE 20 MG TAB PO SCH (08:04)
[2019-05-17] MEDS: TAPENTADOL HCL ER 50 MG TABCR PO SCH (08:04)
[2019-05-17] MEDS: VITAMIN B COMPLEX TAB PO SCH (08:04)
[2019-05-17] MEDS: ASPIRIN 81 MG CHEW PO SCH (08:04)
[2019-05-17] MEDS: FLUTICASONE PROPIONATE NA SPR 16 GM BTL NAE SCH (08:05)
[2019-05-17] MEDS: HEPARIN SOD 5,000 UNIT/0.5 ML VIAL SQ SCH (08:05)
[2019-05-17] MEDS ORDERED: SPIRONOLACTONE 25 MG TAB PO SCH (09:00)
--- NOTE | 2019-05-24 10:43 | Discharge Summary ---
Date of Service May 17, 2019 Admission HPI Per Admitting Provider The patient is a 78-year-old male with a past medical history including 3 L oxygen dependent COPD, hypertension, hyperlipidemia, diabetes mellitus, obesity, depression, BPH and obstructive sleep apnea, who presents to the emergency department with worsening productive cough and shortness of breath. He reports that his symptoms were more aggravated by near choking on a fish oil tablet that he took this morning, but that he was having problems prior to that as well. In the emergency department, patient received Solu-Medrol 125 mg IV, a DuoNeb treatment and Lasix 40 mg IV, and was then referred for evaluation for ad mission. Principal Diagnosis COPD exacerbation Discharge Exam Constitutional: WD/WN, vitals as above Eyes: EOM intact bilaterally; no conjunctival abnormality ENMT: external ear and nose normal, oropharynx normal Neck: trachea midline, no thyromegaly normal visual inspection Respiratory: normal respiratory effort, lungs clear to auscultation no respiratory distress Cardiovascular: Rate/Rhythm: regular rate and regular rhythm Extremities: no edema Gastrointestinal (Abdomen): Inspection/Auscultation: abdomen normal to inspection; abdomen not distended Musculoskeletal: no cyanosis or clubbing, extremities motor strength 5/5 Skin: no rashes, warm and dry Neurologic: moves all extremities and awake Psychiatric: Orientation: alert, oriented to person and cooperative Discharge Data Allergies Allergy/AdvReac Type Severity Reaction Status Date / Time cyclobenzaprine Allergy Severe COLLAPSE Verified 05/13/19 20:12 morphine Allergy Intermediate other Verified 05/13/19 20:12 oxycodone Allergy Intermediate other Verified 05/13/19 20:12 lisinopril Allergy Mild UNKNOWN Verified 05/13/19 20:12 pioglitazone Allergy Mild UNKNOWN Verified 05/13/19 20:12 prochlorperazine Allergy Mild UNKNOWN Verified 05/13/19 20:12 carisoprodol [From Soma] Allergy Unknown ON [facility] Verified 05/13/19 20:12 LIST glimepiride Allergy Unknown Unknown Rxn Verified 05/13/19 20:12 lamotrigine [From Lamictal] Allergy Unknown [facility] LIST Verified 05/13/19 20:12 mirtazapine Allergy Unknown UNKNOWN Verified 05/13/19 20:12 olmesartan [From Benicar] Allergy Unknown ON [facility] Verified 05/13/19 20:12 LIST quetiapine [From Seroquel] Allergy Unknown ON [facility] Verified 05/13/19 20:12 LIST tamsulosin [From Flomax] Allergy Unknown [facility] LIST Verified 05/13/19 20:12 telmisartan [From Micardis] Allergy Unknown ON [facility] Verified 05/13/19 20:12 LIST Dyazide AdvReac Mild WEIGHT Verified 05/22/18 01:18 GAIN,DIZZINESS , FALLS hydrochlorothiazide AdvReac Mild WEIGHT Verified 05/13/19 20:12 GAIN,DIZZINESS , FALLS Penicillins AdvReac Mild REDNESS AT Verified 05/13/19 20:12 INJECTION SITE-PT DENIES streptomycin AdvReac Mild REMOTE Verified 05/13/19 20:12 RXN, "TINGLING IN LEGS" DENIES SOB/RASH tazobactam AdvReac Mild REDNESS AT Verified 05/13/19 20:12 INJECTION SITE triamterene AdvReac Mild WEIGHT Verified 05/13/19 20:12 GAIN,DIZZINESS , FALLS propoxyphene AdvReac Unknown UNKNOWN Verified 05/13/19 20:12 Consultations 05/13/19 22:06 ED Decision to Admit Stat 05/13/19 23:55 Consult Case Management - Discharge Planning Routine Hospital Course (1) Chronic obstructive lung disease: Sees Dr. Tomas as outpatient. Per o/p notes, he has severe COPD, though I cannot find PFTs. Presently with exacerbation with increased shortness of breath and mildly productive cough. CXR on 05/13 was negative for infiltrate. At baseline, uses 3L NC. - Steroids, abx, DuoNebs, guaifenesin - O2 is currently at home level Doubt diagnosis of CHF: echo does not reveeal diastolic dysfunction. Fluid may be from ascities and liver failure. Will continue with spironolactone and lasix. Will likely require a 40:100 ratio at discharge. Will discharge on lasix 10 mg with spironolactone. May consider increasing dose to 20 mg of lasix and 50 mg of spironolactone at followup appointment. Will recommend obtaining a BMP at followup. Weight has imprvoed during hospital stay. (2) CHF (congestive heart failure): Chronic diastolic heart failure. Possible mild acute component with CXR showing mild hypervolemia. Weight is ~5kg above baseline (which is ~100 kg), though he has only trace edema on exam. 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 - Per patient, he has been on furosemide in the past (and even has some at home), but has not been taking it right now. - Continue spironolactone 25 mg p.o. daily. (3) Chronic respiratory failure with hypoxia, on home oxygen therapy: See above (4) Diabetes mellitus: A1c was 6.0% this admission. - Hold metformin. - Continue Lantus - Sliding scale insulin - Glycemic consult while on steroids (5) Diabetic peripheral neuropathy associated with type 2 diabetes mellitus: Sees Dr. Madrid as outpatient. 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 Never had any issues with decompensation however. - Likely the cause of his thrombocytopenia. - Continue spironolactone (7) Anxiety with depression: No concerns at present. - Continue alprazolam, buspirone, gabapentin, trazodone, and venlafaxine ER. (8) TERI (obstructive sleep apnea): Patient has not always been compliant with CPAP. - We will prescribe CPAP as needed. (9) BPH (benign prostatic hyperplasia): Follows with Dr. Henriquez. No LUTS. - Continue alfuzosin ER and finasteride (10) Hyperlipidemia LDL goal <70: - Continue simvastatin 40 mg at bedtime. (11) Hypotestosteronism: - Continue testosterone 1.62% transdermal gel packet (12) DVT prophylaxis: Heparin 5000 BID - If platelets fall below 50k, will only use SCDs Patient requires transportation for discharge. Unsure if able to transport today. His weight still is not at his dry weight. He has decreased to 102 from 105 kg. Total Time Total Time Spent Total Time Spent (In Minutes): 33 Total Time Includes: Examination of the Patient, Discharge Planning and Medication Reconciliation Discharge Plan Discharge Items Patient Disposition: Home - Self-Care Reason For Visit: CHF,PNEUMONIA Discharge Diagnosis: COPD exacerbation Discharge Goals: Decrease discomfort Activity: Resume your previous activity Non-emergency contact: Primary Care Provider Call non-emergency contact if: you have any medication questions Follow-up/Referrals: Reji Gunderson MD [Primary Care Provider] - 05/24/19 10:30 am (Please, follow up at Dr. Gunderson's office with his associate, Dr. Au, on ThursdayMay 24 at 10:30 am. *If you have any questions, call their office at [phone].) Diet: Carb Consistent or DM2 and Heart Healthy Addtl Provider Instructions: Will discharGe you on lasix 10 mg with spironolactone. May consider increasing dose to 20 mg of lasix and 50 mg of spironolactone at followup appointment. Will recommend obtaining a BMP at followup. Prescriptions: New azithromycin [Zithromax] 250 mg Tablet 250 mg PO QAM Qty: 2 RF: 0 budesonide 0.5 mg/2 mL Suspension For Nebulization 0.5 mg NEB BIDR Qty: 60 RF: 0 furosemide [Lasix] 20 mg tablet 10 mg PO DAILY Qty: 15 RF: 0 prednisone 10 mg tablet 10 mg PO DAILY Qty: 20 RF: 0 Continued ipratropium-albuterol 0.5 mg-3 mg(2.5 mg base)/3 mL solution for nebulization 3 ml INH Q4H PRN (Reason: Shortness Of Breath Or Wheezing) RF: 0 ipratropium-albuterol 0.5 mg-3 mg(2.5 mg base)/3 mL solution for nebulization 3 ml INH QID RF: 0 spironolactone [Aldactone] 25 mg tablet 25 mg PO DAILY RF: 0 simvastatin [Zocor] 40 mg tablet 40 mg PO QPM RF: 0 trazodone 150 mg tablet 150 mg PO HS RF: 0 buspirone 30 mg tablet 30 mg PO DAILY RF: 0 metformin 1,000 mg tablet 1,000 mg PO BID RF: 0 aspirin 81 mg tablet,chewable 81 mg PO DAILY RF: 0 fluticasone propionate [Flonase Allergy Relief] 50 mcg/actuation spray,suspension 1 sprays INTNAS DAILY RF: 0 finasteride 5 mg tablet 5 mg PO DAILY RF: 0 B-complex with vitamin C capsule 2 cap PO DAILY RF: 0 alfuzosin 10 mg tablet extended release 24 hr 10 mg PO DAILY RF: 0 cholecalciferol (vitamin D3) 2,000 unit tablet 2,000 units PO DAILY RF: 0 venlafaxine 150 mg tablet extended release 24hr 150 mg PO BID RF: 0 alprazolam [Xanax] 0.5 mg tablet 0.5 mg PO TID PRN (Reason: Anxiety) RF: 0 gabapentin 800 mg tablet 800 mg PO QID RF: 0 testosterone [AndroGel] 1.62 % (40.5 mg/2.5 gram) gel in packet topical DAILY RF: 0 Centrum Silver Men 300-600-300 mcg tablet 1 tab PO DAILY RF: 0 magnesium oxide 400 mg magnesium tablet 400 mg PO DAILY RF: 0 Nucynta ER 100 mg tablet extended release 12 hr 100 mg PO Q12H Qty: 60 RF: 0 Lantus U-100 Insulin 100 unit/mL Solution 24 unit SUBCUT HS RF: 0 amlodipine 5 mg Tablet 5 mg PO DAILY RF: 0 Novolog U-100 Insulin aspart 100 unit/mL Solution 1 sliding scale dose SUBCUT USEASDIRECTD RF: 0 betamethasone dipropionate 0.05 % Cream 1 applic TOPICAL DIRECTED PRN (Reason: NEEDED) RF: 0 tadalafil 20 mg Tablet 20 mg PO DIRECTED PRN (Reason: 1 HR PRIOR TO ACTIVITY) RF: 0 calcium carbonate-vitamin D3 [Calcium 600 + D(3)] 600 mg(1,500mg) -400 unit Tablet 1 tab PO DAILY RF: 0 lidocaine HCl 2 % Cream 1 applic TOPICAL Q4 PRN (Reason: Pain) RF: 0 Utibron Neohaler 27.5-15.6 mcg Capsule, W/Inhalation Device 1 cap INHALATION BID RF: 0 Compound Medicine 1 - 2 g topical DAILY RF: 0 Discontinued silodosin 8 mg Capsule 8 mg PO HS RF: 0 Stand-Alone Forms: [facility] Discharge Orders: Discharge Order (Routine); Ordered 05/17/19 Ordered By: Gee Leonardo Admission Data Admit Date/Time: 05/13/19 22:49 Attending Provider: Gee Leonardo Admit Provider: Mikel Elizabeth Primary Care Provider: Reji Gunderson Service: Telemetry Other Interventions: Discharge Summary Assessment (RN) Last Done: 05/17/19 10:22 DC Date/Time DO NOT enter until pt leaves facility: 05/17/19 10:51
== END 2019-05-17 10:51 | disposition home or self-care (01) | DRG 190 ==
LOC: ED 18:37 → SUATTDRO 22:49 → 2E 22:49

== ENCOUNTER 2020-03-17 13:09 | Observation (INO) ==
[2020-03-17] MEDS ORDERED: ONDANSETRON INJ 2 MG/ML 2 ML VIAL IV STA (13:18)
[2020-03-17] MEDS ORDERED: fentaNYL citrate 100 MCG/2 ML VIAL IV STA ×2 (13:18→15:57)
--- NOTE | 2020-03-17 13:26 | Emergency Department Note ---
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 amlodipine 5 mg Tablet 5 mg PO PM RF: 0 insulin aspart U-100 [Novolog U-100 Insulin aspart] 100 unit/mL Solution 1 sliding scale dose SUBCUT USEASDIRECTD RF: 0 betamethasone dipropionate 0.05 % Cream 1 applic TOPICAL DIRECTED PRN (Reason: NEEDED) RF: 0 tadalafil 20 mg Tablet 20 mg PO DIRECTED PRN (Reason: 1 HR PRIOR TO ACTIVITY) RF: 0 calcium carbonate-vitamin D3 [Calcium 600 + D(3)] 600 mg(1,500mg) -400 unit Tablet 1 tab PO QAM RF: 0 venlafaxine [Effexor XR] 150 mg capsule,extended release 24hr 300 mg PO QAM RF: 0 tamsulosin [Flomax] 0.4 mg capsule 0.4 mg PO PM RF: 0 aripiprazole [Abilify] 10 mg tablet 10 mg PO HS RF: 0 Basaglar KwikPen U-100 Insulin 100 unit/mL (3 mL) insulin pen 24 unit SUBCUT HS RF: 0 budesonide 0.5 mg/2 mL suspension for nebulization 0.5 mg NEB BID PRN (Reason: Shortness Of Breath Or Wheezing) RF: 0 furosemide [Lasix] 20 mg tablet 10 mg PO DAILY PRN (Reason: fluid build-up) RF: 0 lidocaine HCl 2 % cream 1 appln TOP BID PRN (Reason: Pain) RF: 0 finasteride 5 mg tablet 5 mg PO QAM RF: 0 silodosin 8 mg capsule 8 mg PO PM RF: 0 Referrals Referrals: Reji Gunderson MD [Primary Care Provider] - Discharge Problem: Multiple fractures of ribs Qualifiers: Encounter type: initial encounter Fracture type: closed Laterality: left Qualified Code(s): S22.42XA - Multiple fractures of ribs, left side, initial encounter for closed fracture Fall Qualifiers: Encounter type: initial encounter Qualified Code(s): W19.XXXA - Unspecified fall, initial encounter
[2020-03-17 14:42] LABS: Appearance Urine Clear (Clear); Bacteria Urine Automated Negative (Negative); Bilirubin Urine Negative (Negative); Blood Urine 1+ (Negative); Color Urine Yellow; Epithelial Cell Urine Auto 20-30 /lpf (0-5); Glucose Urine UA Negative (Negative); Ketones Urine Negative (Negative); Leukocyte Esterase Urine Negative (Negative); Nitrite Urine Negative (Negative); Protein Urine Negative (Negative); RBC Urine Automated >30 /hpf (0-4); Specific Gravity Urine 1.016 (1.000-1.030); Urobilinogen Urine Negative (Negative); pH Urine 6.5 (4.5-7.5)
[2020-03-17 15:34] LABS: INR 1.1 (0.9-1.1); Prothrombin Time 11.4 Seconds (9.0-12.0)
[2020-03-17 15:58] LABS: Hematocrit (blood only) 39.6 % (42-52); Hemoglobin 13.8 g/dL (14.0-18.0); Mean Corpuscular Hemoglobin 30.6 pg (25-34); Mean Corpuscular Hgb Conc 34.8 g/dL (32-36); Mean Corpuscular Volume 87.8 fL (80-100); Mean Platelet Volume 10.7 fL (7.4-10.4); Platelet Count 68 K/uL (130-400); RDW Coefficient of Variation 12.9 % (11.5-14.5); RDW Standard Deviation 41.2 fL (36.4-46.3); Red Blood Count 4.51 M/uL (4.7-6.1); White Blood Count 6.46 K/uL (4.8-10.8)
[2020-03-17 16:00] LABS: Alanine Aminotransferase 26 U/L (12-78); Albumin Globulin Ratio 1.3 (0.9-2); Albumin Level 3.7 gm/dl (3.4-5.0); Alkaline Phosphatase 91 U/L (45-117); BUN Creatinine Ratio 7.4 (10-20); Basophils # (auto) 0.01 K/uL (0-0.2); Basophils % (auto) 0.2 %; Bilirubin,Total 0.7 mg/dl (0.2-1); Blood Urea Nitrogen 7 mg/dl (7-18); Calcium 8.7 mg/dl (8.5-10.1); Carbon Dioxide 29 mmol/L (21-32); Chloride 96 mmol/L (98-107); Echinocytes 1+; Eosinophils # (auto) 0.01 K/uL (0-0.5); Eosinophils % (auto) 0.2 %; Est GFR (Non-African American) 76.8; Globulin 2.8 gm/dl (2.5-4.0); Glucose 134 mg/dl (70-99); Lymphocytes # (auto) 0.48 K/uL (1.2-3.4); Lymphocytes % (auto) 7.4 %; Monocytes # (auto) 0.43 K/uL (0.11-0.59); Monocytes % (auto) 6.7 %; Neutrophils # (auto) 5.53 K/uL (1.4-6.5); Neutrophils % (auto) 85.5 %; Sodium 130 mmol/L (136-145); Total Protein 6.5 gm/dl (6.4-8.2); Troponin I < 0.015 ng/ml (0-0.045)
--- NOTE | 2020-03-17 16:11 | XRay Report ---
XR ribs LT min 3V w CXR1V CLINICAL HISTORY: Left-sided chest pain status post trauma COMPARISON STUDY: 05/13/2019 FINDINGS: The heart remains enlarged. There are postsurgical changes of a midline sternotomy. There i s no pneumothorax. There is chronic indistinctness of the left heart border. There is no lobar consol idation. There is an acute left sixth rib fracture. There are additional age-indeterminate left rib d eformities. IMPRESSION: 1. Acute left sixth rib fracture. Additional left rib deformities are age indeterminant. 2. No evidence of pneumothorax. ACT 112: Negative or not required by law. Electronically signed by: Edy Olivo M.D. 03/17/2020 4:10 PM
[2020-03-17] MEDS ORDERED: IOVERSOL 100ml IV PRN (17:00)
--- NOTE | 2020-03-17 17:32 | CT Scan Report ---
CT abd pelvis IV con only CLINICAL HISTORY: Abdominal pain status post trauma COMPARISON STUDY: June 27, 2019 TECHNIQUE: The patient was scanned in a dynamic helical fashion during intravenous administration of 94 cc of Optiray 320 A dose lowering technique was utilized adhering to the principles of ALARA. CT DOSE: 1031.82 mGycm FINDINGS: Lower chest: There is a pectus deformity. There are dependent basilar airspace opacity statistically atelectatic Liver: The liver has a cirrhotic morphology. No focal hepatic masses are visualized. Portosystemic co llaterals are visualized. Gallbladder: Cholelithiasis. Spleen: The spleen is enlarged measuring 18 cm. There is trace perisplenic fluid adjacent to the supe rior margin of the spleen. There is a subtle 3.5 cm area of inhomogeneous enhancement within the mid aspect of the spleen. There is also a new 23 mm hypodensity within the inferior margin of the spleen. Given history of trauma, subtle splenic contusions are suspected Pancreas: Unremarkable. Adrenal glands: Unremarkable. Kidneys: There is symmetric renal cortical enhancement. The kidneys are normal in size without hydron ephrosis. Bowel: There are no transition zones indicate bowel obstruction. There is colonic diverticulosis. The re is no evidence of acute diverticulitis. Peritoneum: There is no intraperitoneal free air or abdominal ascites. Vasculature: The abdominal aorta is normal in course and caliber. Adenopathy: None. Pelvic viscera: There is mild bladder wall thickening. Skeletal structures: There is a left 12th rib fracture posteriorly. IMPRESSION: 1. Splenomegaly. Interval development of subtle splenic hypodensities, likely representing splenic co ntusions given the history of trauma. 2. Posterior left 12th rib fracture, possibly subacute 3. Cirrhotic morphology the liver 4. Cholelithiasis 5. No evidence of bowel obstruction. No evidence of free air 6. Diverticulosis. No evidence of acute diverticulitis 7. Mild bladder wall thickening 8. Basilar airspace opacities likely atelectatic ACT 112: Negative or not required by law. Electronically signed by: Edy Olivo M.D. 03/17/2020 5:31 PM
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
[2020-03-17] MEDS ORDERED: ONDANSETRON INJ 2 MG/ML 2 ML VIAL IV PRN (21:05)
[2020-03-17] MEDS ORDERED: POLYETHYLENE (MIRALAX) 17 GM PACK PO PRN (21:05)
[2020-03-17] MEDS ORDERED: ALPRAZolam 0.5 MG TABLET PO PRN (21:10)
[2020-03-17] MEDS ORDERED: BUDESONIDE 0.5 MG/2 ML VIAL (PULMICORT) NEB PRN (21:10)
[2020-03-17] MEDS ORDERED: ARIPiprazole 10 MG TAB PO SCH (21:15)
[2020-03-17] MEDS ORDERED: DEXTROSE 50% 50 ML SYRINGE IV PRN (21:17)
[2020-03-17] MEDS ORDERED: GLUCOSE 10 TABS/TUBE PO PRN (21:17)
[2020-03-17] MEDS ORDERED: CARBOHYDRATES FOR HYPOGLYCEMIA PO PRN (21:17)
[2020-03-17] MEDS ORDERED: GLUCAGON FOR INJ 1 MG VIAL SQ PRN (21:17)
[2020-03-17] MEDS ORDERED: GLUCOSE 40% GEL 15 GM TUBE PO PRN (21:17)
[2020-03-17] MEDS: TAPENTADOL HCL ER 50 MG TABCR PO SCH (21:48)
[2020-03-17] MEDS: BusPIRone 15 MG TAB PO SCH (21:51)
[2020-03-17] MEDS: AMLODIPINE BESYLATE 5 MG TAB PO SCH (21:51)
[2020-03-17] MEDS: SIMVASTATIN 40 MG TAB PO SCH (21:51)
[2020-03-17] MEDS: SPIRONOLACTONE 25 MG TAB PO SCH (21:51)
[2020-03-17] MEDS: INSULIN GLARGINE SOLOSTAR 100 UNITS/ML 3 ML PEN SC SCH (21:52)
[2020-03-17] MEDS: GABAPENTIN 800 MG TAB PO SCH (21:57)
[2020-03-17 22:46] LABS: Hematocrit (blood only) 39.7 % (42-52); Mean Corpuscular Hemoglobin 31.2 pg (25-34); Mean Corpuscular Hgb Conc 35.3 g/dL (32-36); Mean Corpuscular Volume 88.4 fL (80-100); RDW Coefficient of Variation 12.8 % (11.5-14.5); RDW Standard Deviation 41.2 fL (36.4-46.3); Red Blood Count 4.49 M/uL (4.7-6.1); White Blood Count 6.42 K/uL (4.8-10.8)
[2020-03-17 22:58] LABS: Mean Platelet Volume 10.5 fL (7.4-10.4); Platelet Count 64 K/uL (130-400)
[2020-03-17 22:59] LABS: Basophils # (auto) 0.01 K/uL (0-0.2); Basophils % (auto) 0.2 %; Eosinophils # (auto) 0.01 K/uL (0-0.5); Eosinophils % (auto) 0.2 %; Immature Granulocytes # (auto) 0.01 K/uL (0.00-0.02); Immature Granulocytes % (auto) 0.2 %; Lymphocytes # (auto) 0.35 K/uL (1.2-3.4); Lymphocytes % (auto) 5.5 %; Monocytes # (auto) 0.48 K/uL (0.11-0.59); Monocytes % (auto) 7.5 %; Neutrophils # (auto) 5.56 K/uL (1.4-6.5); Neutrophils % (auto) 86.4 %
[2020-03-18 06:56] LABS: Hematocrit (blood only) 38.9 % (42-52); Hemoglobin 13.2 g/dL (14.0-18.0); Mean Corpuscular Hgb Conc 33.9 g/dL (32-36); Mean Corpuscular Volume 88.4 fL (80-100); RDW Coefficient of Variation 12.8 % (11.5-14.5); RDW Standard Deviation 41.6 fL (36.4-46.3); White Blood Count 5.63 K/uL (4.8-10.8)
[2020-03-18 07:13] LABS: INR 1.1 (0.9-1.1); Prothrombin Time 11.2 Seconds (9.0-12.0)
[2020-03-18 07:20] LABS: Mean Platelet Volume 10.4 fL (7.4-10.4); Platelet Count 65 K/uL (130-400)
[2020-03-18] MEDS: SPIRONOLACTONE 25 MG TAB PO SCH ×2 (07:27→16:59)
[2020-03-18] MEDS: BusPIRone 15 MG TAB PO SCH ×2 (07:28→21:11)
[2020-03-18] MEDS: AMANTADINE HCL 100 MG CAPSULE PO SCH ×2 (07:29→21:13)
[2020-03-18] MEDS: GABAPENTIN 800 MG TAB PO SCH ×2 (07:30→12:40)
[2020-03-18] MEDS: CHOLECALCIFEROL 1,000 UNITS 25 MCG TAB PO SCH (07:30)
[2020-03-18 07:31] LABS: Eosinophils # (auto) 0.03 K/uL (0-0.5); Eosinophils % (auto) 0.5 %; Immature Granulocytes # (auto) 0.01 K/uL (0.00-0.02); Immature Granulocytes % (auto) 0.2 %; Lymphocytes # (auto) 0.76 K/uL (1.2-3.4); Lymphocytes % (auto) 13.5 %; Monocytes # (auto) 0.59 K/uL (0.11-0.59); Monocytes % (auto) 10.5 %; Neutrophils # (auto) 4.24 K/uL (1.4-6.5); Neutrophils % (auto) 75.3 %; RBC Morphology Unremarkable
[2020-03-18] MEDS: FINASTERIDE 5 MG TAB PO SCH (07:31)
[2020-03-18] MEDS: VITAMIN B COMPLEX TAB PO SCH ×2 (07:31→07:33)
[2020-03-18] MEDS: MAGNESIUM OXIDE 400 MG TAB PO SCH (07:32)
[2020-03-18] MEDS: CALCIUM 600MG + VIT D 400 IU TAB PO SCH (07:32)
[2020-03-18] MEDS: VENLAFAXINE HCL XR 150 MG CAPXR PO SCH (07:32)
[2020-03-18 07:34] LABS: Albumin Globulin Ratio 1.1 (0.9-2); Albumin Level 3.4 gm/dl (3.4-5.0); BUN Creatinine Ratio 11.2 (10-20); Bilirubin,Total 0.8 mg/dl (0.2-1); Calcium 8.6 mg/dl (8.5-10.1); Est GFR (African American) 95.1; Est GFR (Non-African American) 82.1; Total Protein 6.4 gm/dl (6.4-8.2)
[2020-03-18] MEDS: ACETAMINOPHEN 325 MG TAB PO SCH ×4 (07:42→21:14)
[2020-03-18] MEDS: INSULIN GLARGINE SOLOSTAR 100 UNITS/ML 3 ML PEN SC SCH ×2 (07:43→21:18)
[2020-03-18 07:44] LABS: Potassium 4.4 mmol/L (3.5-5.1)
[2020-03-18] MEDS: INSULIN ASPART 100 UNITS/ML 3 ML PEN SC SCH ×4 (07:46→21:17)
[2020-03-18] MEDS: THIAMINE HCL 100 MG TAB PO SCH (08:02)
[2020-03-18] MEDS: TAPENTADOL HCL ER 50 MG TABCR PO SCH ×2 (08:02→08:03)
[2020-03-18] MEDS: TRAMADOL HCL 50 MG TABLET PO PRN ×2 (08:03→21:11)
--- NOTE | 2020-03-18 08:03 | Surgery Progress Note ---
Date of Service March 18, 2020 Assessment & Plan (1) Multiple fractures of ribs: 03/18/20 His hemoglobin has been stable since admission as his vitals at this point recommendation to monitor patient in hospital another 24 hours and be discharged if his hemoglobin is stable He states that he is lives at home with sounds like his family although with these numerous falls with the patient has had and most likely will continue to happen may consider having social service see the patient and consider some outside help to try to help him minimize these falls At this time I discussed with the patient the best avenue would be to admit to the medical service since he has significant cardiac history repeat a hemoglobin of 12 hours sure that he has enough pain management to avoid any developing a pneumonia with the possibility of him splinting from his rib fractures We will follow along with you Subjective Patient still complaining of pain in the left chest area and left upper quadrant but he is sitting up the side of the bed eating his breakfast without any issues Physical Exam Physical Exam: There is no obvious change on the exam compared to last evening consists of the area that the patient was experiencing some pain on admission Results & Data Vital Signs (Past 12 Hours) Vital Signs Temp Pulse Pulse Pulse Resp BP Pulse Ox 03/18/20 06:59 36.7 C 65 18 126/67 98 03/18/20 03:52 37.3 C 69 16 128/65 97 03/18/20 00:00 82 03/17/20 23:27 37 C 62 20 125/65 97 03/17/20 20:40 77 03/17/20 20:25 36.7 C 78 20 174/73 H 95 03/17/20 20:10 82 20 167/70 H 100 PG Care Time/CCT Total # of Minutes Spent Total Time Spent with Patient: Total time spent is greater than 50% in coordina tion of care (as documented) at patient's floor/unit and/or counseling patient: Coding Level of Care Code 80201 Subseq Hosp Care Lvl 3 Diagnoses Multiple fractures of ribs S22.42XA Encounter type: initial encounter Fracture type: closed Laterality: left (1) Multiple fractures of ribs Encounter type: initial encounter Fracture type: closed Laterality: left Qualified Code(s): S22.42XA - Multiple fractures of ribs, left side, initial encounter for closed fracture
--- NOTE | 2020-03-18 09:05 | Electrocardiogram Report ---
Test Reason : Blood Pressure : / mmHG Vent. Rate : 080 BPM Atrial Rate : 080 BPM P-R Int : 310 ms QRS Dur : 090 ms QT Int : 372 ms P-R-T Axes : 063 -18 074 degrees QTc Int : 429 ms Sinus rhythm with 1st degree A-V block Possible Left atrial enlargement Low voltage QRS Borderline ECG When compared with ECG of 23-OCT-2019 15:33, No significant change was found Confirmed by Eldon Gonzales ([id number]) on 03/18/2020 9:04:40 AM Referred By: REFERRED SELF Confirmed By:Eldon Gonzales
[2020-03-18] MEDS: LIDOCAINE 5% 1 PATCH TD SCH (10:05)
[2020-03-18] MEDS: GABAPENTIN 600 MG TAB PO SCH ×2 (17:00→21:12)
--- NOTE | 2020-03-18 18:29 | Hospitalist Progress Note ---
Date of Service March 18, 2020 Assessment & Plan (1) Multiple fractures of ribs: pain control reasonable at rest, still painful with much movement -- continue lidocaine patch Incentive spirometry Q1HWA Limited options for pain relief given liver cirrhosis and concern for hemothorax while on chronic opiates and concern for respiratory depression with additional opiates. continue current meds and follow (2) Minor contusion of spleen, initial encounter: No current need for intervention but may be contributing towards his left sided pain, CBC stable (3) Fall: Suspect secondary to longstanding sensory ataxia +/- polypharmacy --PT/OT eval and treat --> anticipate need for rehab or subacute rehab. dtr notes he had good experience at [facility] a year ago (4) Sensory ataxia: probably contributing to falls as well longstanding neurology pt. B12 542, current A1c pending (but most recent was 6) (5) Tardive dyskinesia: seems to relate to abilify. ongoing neuro follow up as outpt (see dr waller's most recent notes) although would also want to try to reduce abilify as part of polypharmacy plan if possible (6) Cirrhosis, alcoholic: Noted history of this. LFTs and INR WNL although thrombocytopenia noted. ammonia level was OK (7) Hypogonadism in male: Unclear diagnosis of this will hold his testosterone patch while here as likely making BPH worse. (8) Type 2 diabetes mellitus: continue basal bolus - although at reduced doses from home regimen given low recent A1cs (9) Weakness: PT/OT eval and treat anticipate rehab or subacute rehab (10) TERI (obstructive sleep apnea): Wears BiPAP intermittently (11) Polypharmacy: Very concerning combination of Xanax, Buspar, Abilify, Effexor, trazodone, gabapentin and Nucynta. -d/w pt and then later dtr about a long goods drier plan to try to at least reduce doses, if not eliminate some meds ---since he only uses xanax a few times a week will dc that now ---since neuropathy pain hard to describe and not really present now will reduce gabapentin to 600mg (down from 800) ---since abilify may be culprit in tardive dyskinesia (and it would be better to eliminate this if possible than add a med to treat side effects, if possible) will reduce abilify to 7.5mg HS ---> follow closely, if rebound pain or anxiety then may need to re-increase meds; otherwise if doing well would continue to slowly and incrementally reduce meds. dtr noted that nucynta has probably helped the most with pain//he would likely be most reticent to have this changed --d/w her that this can be left alone until/unless dose alteration of this is truly needed (12) Microscopic hematuria: Noted. 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 Uses nebs PRN. no SOB today despite rib fractures, encouraged IS use (14) Chronic respiratory failure with hypoxia: On home O2 but his daughter questions compliance with this (15) BPH (benign prostatic hyperplasia): med list had 2 alpha blockers - admitting cleaned this up to 1. continue silodosin 8mg HS and finasteride (16) DVT prophylaxis: No SCDs due to falls risk No chemical prophylaxis due to risk of bleeding/hemothorax following acute trauma. (17) Discharge planning issues: PT/OT eval and treat anticipate SNF for rehab once ready for discharge Admission and Anticipated Discharge Date Admission Date: March 17, 2020 Subjective feeling ok - pain reasonable control at rest, hurts too much to move - was out of bed to chair but required assist of 2 to do so. no sob. no other new sx. demonstrates reasonable proficiency w incentive spirometer. notes only probably using xanax a few times a week. hard to gauge neuropathy pain on a normal day - notes that he does have burning pain in feet normally but can't really give a severity - and notes that right now none. discussed trying to slowly inch med changes down to help w polypharmacy - he expressed willingness to try. updated dtr she appreciated care Review of Systems Review of Systems: All systems reviewed & are unremarkable except as noted in HPI & below Physical Exam Physical Exam: gen aao pleasant nad heent nc at mmm breathing unlabored no accessory muscles, tender to palp left lower chest wall no focal neuro deficits. skin no rashes no pallor or icterus. cn 2-12 grossly intact gross motor/sensory intact. Results & Data Results & Data ([facility]) Vital Signs (Past 12 Hours) Vital Signs Temp Pulse Resp BP Pulse Ox 03/18/20 15:26 98.4 F 67 17 144/61 H 97 03/18/20 11:06 98.2 F 63 20 137/70 97 03/18/20 06:59 98.1 F 65 18 126/67 98 PG Care Time/CCT Total # of Minutes Spent Total Time Spent with Patient: Total time spent is greater than 50% in coordination of care (as documented) at patient's floor/unit and/or counseling patient: Coding Level of Care Code 40780 Subseq Hosp Care Lvl 3 Diagnoses Multiple fractures of ribs S22.42XA Encounter type: initial encounter Fracture type: closed Laterality: left Minor contusion of spleen, initial encounter S36.020A Fall W19.XXXA Encounter type: initial encounter Sensory ataxia R27.8 Tardive dyskinesia G24.01 Cirrhosis, alcoholic K70.30 Hypogonadism in male E29.1 Type 2 diabetes mellitus E11.9 Weakness R53.1 TERI (obstructive sleep apnea) G47.33 Polypharmacy Z79.899 Microscopic hematuria R31.29 Mixed restrictive and obstructive lung disease J43.9; J98.4 Chronic respiratory failure with hypoxia J96.11 BPH (benign prostatic hyperplasia) N40.0 DVT prophylaxis Z29.9 Discharge planning issues Z02.9 (1) Multiple fractures of ribs Encounter type: initial encounter Fracture type: closed Laterality: left Qualified Code(s): S22.42XA - Multiple fractures of ribs, left side, initial encounter for closed fracture (2) Fall Encounter type: initial encounter Qualified Code(s): W19.XXXA - Unspecified fall, initial encounter
[2020-03-18] MEDS ORDERED: ALBUT/IPRATROP 3MG/0.5MG NEB 3 ML VIAL INH PRN (20:36)
[2020-03-18] MEDS: ARIPiprazole 5 MG TAB PO SCH (21:07)
[2020-03-18] MEDS: [UNRECOGNIZED DRUG - REMARK] SCH (21:07)
[2020-03-18] MEDS ORDERED: TAPENTADOL HCL ER 50 MG TABCR PO ONE (21:08)
[2020-03-18] MEDS: TRAZODONE HCL 50 MG TAB PO SCH (21:11)
[2020-03-18] MEDS: AMLODIPINE BESYLATE 5 MG TAB PO SCH (21:12)
[2020-03-18] MEDS: SIMVASTATIN 40 MG TAB PO SCH (21:13)
[2020-03-19] MEDS: [UNRECOGNIZED DRUG - REMARK] SCH ×2 (00:40→09:01)
[2020-03-19 06:37] LABS: Estimated Average Glucose 128 mg/dl; Hemoglobin A1C 6.1 % (4.5-5.6)
[2020-03-19 07:19] LABS: Hematocrit (blood only) 36.8 % (42-52); Hemoglobin 12.7 g/dL (14.0-18.0); Mean Corpuscular Hemoglobin 30.8 pg (25-34); Mean Corpuscular Hgb Conc 34.5 g/dL (32-36); Mean Corpuscular Volume 89.1 fL (80-100); RDW Standard Deviation 42.4 fL (36.4-46.3); Red Blood Count 4.13 M/uL (4.7-6.1); White Blood Count 5.15 K/uL (4.8-10.8)
[2020-03-19 07:23] LABS: Platelet Count 53 K/uL (130-400)
[2020-03-19 07:37] LABS: Basophils # (auto) 0.01 K/uL (0-0.2); Basophils % (auto) 0.2 %; Eosinophils # (auto) 0.04 K/uL (0-0.5); Eosinophils % (auto) 0.8 %; Lymphocytes # (auto) 0.77 K/uL (1.2-3.4); Monocytes # (auto) 0.58 K/uL (0.11-0.59); Monocytes % (auto) 11.3 %; Neutrophils # (auto) 3.75 K/uL (1.4-6.5); Neutrophils % (auto) 72.7 %
--- NOTE | 2020-03-19 08:32 | Surgery Progress Note ---
Date of Service March 19, 2020 Assessment & Plan (1) Multiple fractures of ribs: H&H stable will recheck CXR d/c planning ? SNF seen with Dr. Davenport Subjective c/o rib pain, not ready to go back home alone Physical Exam Respiratory: normal respiratory effort Results & Data Vital Signs (Past 12 Hours) Vital Signs Temp Pulse Resp BP Pulse Ox 03/19/20 08:01 36.6 C 69 18 135/63 96 03/18/20 23:38 36.7 C 66 18 143/70 H 97 03/18/20 20:37 37.5 C 69 18 148/74 H 98 PG Care Time/CCT Total # of Minutes Spent Total Time Spent with Patient: Total time spent is greater than 50% in coordination of care (as documented) at patient's floor/unit and/or counseling patient: Coding Level of Care Code 13892 Subseq Hosp Care Lvl 1 Diagnoses Multiple fractures of ribs S22.42XA Encounter type: initial encounter Fracture type: closed Laterality: left (1) Multiple fractures of ribs Encounter type: initial encounter Fracture type: closed Laterality: left Qualified Code(s): S22.42XA - Multiple fractures of ribs, left side, initial encounter for closed fracture
--- NOTE | 2020-03-19 08:47 | XRay Report ---
XR chest 1V portable CLINICAL HISTORY: 79 years-old Male presenting with rib fx. TECHNIQUE: Portable upright AP view of the chest was obtained. COMPARISON: 03/17/2020. FINDINGS: Atherosclerosis of the aortic arch. Cardiac silhouette enlarged. Multiple radiopaque sutures project over the mediastinum. Mild pulmonary vascular prominence. Mildly low lung volumes with elevation of t he right hemidiaphragm new from prior. Minimal added density of the lungs with mild bronchial wall cu ffing and vague perihilar added density. No large effusion or pneumothorax. Pleural thickening along the left mid lung may be present. Associated left posterolateral sixth rib fracture. Upper abdomen no rmal. IMPRESSION: 1. Left posterolateral sixth rib fracture with pleural thickening possibly representing trace extrap leural hematoma or edema. 2. Cardiomegaly with volume overload and congestive change. 3. Mild pulmonary edema versus atelectasis. ACT 112: Negative or not required by law. Electronically signed by: David Gonzalez M.D. 03/19/2020 8:46 AM
[2020-03-19] MEDS: TRAMADOL HCL 50 MG TABLET PO PRN ×3 (09:08→18:50)
[2020-03-19] MEDS: INSULIN ASPART 100 UNITS/ML 3 ML PEN SC SCH ×4 (09:09→21:46)
[2020-03-19] MEDS: INSULIN GLARGINE SOLOSTAR 100 UNITS/ML 3 ML PEN SC SCH ×2 (09:10→21:46)
[2020-03-19] MEDS: GABAPENTIN 600 MG TAB PO SCH ×4 (09:11→21:43)
[2020-03-19] MEDS: BusPIRone 15 MG TAB PO SCH ×2 (09:12→21:44)
[2020-03-19] MEDS: AMANTADINE HCL 100 MG CAPSULE PO SCH ×2 (09:12→21:43)
[2020-03-19] MEDS: FINASTERIDE 5 MG TAB PO SCH (09:13)
[2020-03-19] MEDS: VENLAFAXINE HCL XR 150 MG CAPXR PO SCH (09:14)
[2020-03-19] MEDS: THIAMINE HCL 100 MG TAB PO SCH (09:14)
[2020-03-19] MEDS: MAGNESIUM OXIDE 400 MG TAB PO SCH (09:15)
[2020-03-19] MEDS: SPIRONOLACTONE 25 MG TAB PO SCH ×2 (09:16→17:16)
[2020-03-19] MEDS: CHOLECALCIFEROL 1,000 UNITS 25 MCG TAB PO SCH (09:16)
[2020-03-19] MEDS: LIDOCAINE 5% 1 PATCH TD SCH (09:17)
[2020-03-19] MEDS: CALCIUM 600MG + VIT D 400 IU TAB PO SCH (09:17)
[2020-03-19] MEDS: TAPENTADOL HCL ER 50 MG TABCR PO SCH (09:21)
--- NOTE | 2020-03-19 09:32 | Hospitalist Progress Note ---
Date of Service March 19, 2020 Assessment & Plan (1) Multiple fractures of ribs: pain control reasonable at rest, still painful with much movement -- continue lidocaine patch Incentive spirometry Q1HWA Limited options for pain relief given liver cirrhosis and concern for hemothorax while on chronic opiates and concern for respiratory depression with additional opiates. continue current meds and follow (2) Minor contusion of spleen, initial encounter: No current need for intervention but may be contributing towards his left sided pain, CBC stable (3) Fall: Suspect secondary to longstanding sensory ataxia +/- polypharmacy --PT/OT eval and treat --> anticipate need for rehab or subacute rehab. 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 B12 542, current A1c pending (but most recent was 6) (5) Tardive dyskinesia: seems to relate to abilify. ongoing neuro follow up as outpt (see dr waller's most recent notes) although would also want to try to reduce abilify as part of polypharmacy plan if possible (6) Cirrhosis, alcoholic: Noted history of this. LFTs and INR WNL although thrombocytopenia noted. ammonia level was OK (7) Hypogonadism in male: Unclear diagnosis of this will hold his testosterone patch while here as likely making BPH worse. (8) Type 2 diabetes mellitus: continue basal bolus - although at reduced doses from home regimen given low recent A1cs (9) Weakness: PT/OT eval and treat anticipate rehab or subacute rehab (10) TERI (obstructive sleep apnea): Wears BiPAP intermittently (11) Polypharmacy: Very concerning combination of Xanax, Buspar, Abilify, Effexor, trazodone, gabapentin and Nucynta. 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 dtr noted that nucynta has probably helped the most with pain//he would likely be most reticent to have this changed --d/w her that this can be left alone until/unless dose alteration of this is truly needed (12) Microscopic hematuria: Noted. 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 Uses nebs PRN. no SOB today despite rib fractures, encouraged IS use (14) Chronic respiratory failure with hypoxia: On home O2 but his daughter questions compliance with this (15) BPH (benign prostatic hyperplasia): med list had 2 alpha blockers - admitting cleaned this up to 1. continue silodosin 8mg HS and finasteride (16) DVT prophylaxis: No SCDs due to falls risk No chemical prophylaxis due to risk of bleeding/hemothorax following acute trauma. (17) Discharge planning issues: PT/OT eval and treat anticipate SNF for rehab once ready for discharge Admission and Anticipated Discharge Date Admission Date: March 17, 2020 Subjective pt has continued pain with movement and deep breath Review of Systems Review of Systems: Mild distress and fatigue no headache, blurry or double vision no speech or swallowing issues chest pain with deep breath but no pressure or palpitations no shortness of breath, cough or wheezes no abdominal pain, nausea or vomiting, diarrhea or constipation no dysuria, hematuria or frequency no focal joint pain or swelling no back pain, CVA tenderness or radicular pain no bruising, bleeding or rashes no focal signs of weakness or numbness or altered sensation no complaints or anxiety or depression Physical Exam Physical Exam: The patient appeared well nourished and normally developed. Vital signs as documented. Head exam is unremarkable. No scleral icterus Neck is without JVD, thyromegaly, or carotid bruits. Lungs are clear to auscultation, but limited in excursion due to pain Cardiac exam, Rhythm is regular.. No murmurs, rubs or gallops. Abdominal exam reveals normal bowel sounds, soft tender in bilateral upper quadrants Extremities are nonedematous and both pedal pulses are normal. Neurologic exam is alert and oriented, no focal loss of strength or sensation Skin is without bruises or rashes Psychologically is without concerns for anxiety or depression Results & Data Results & Data ([facility]) Vital Signs (Past 12 Hours) Vital Signs Temp Pulse Resp BP Pulse Ox 03/19/20 08:01 97.9 F 69 18 135/63 96 03/18/20 23:38 98.1 F 66 18 143/70 H 97 PG Care Time/CCT Total # of Minutes Spent Total Time Spent with Patient: Total time spent is greater than 50% in coordination of care (as documented) at patient's floor/unit and/or counseling patient: Coding Level of Care Code 72471 Subseq Hosp Care Lvl 2 Diagnoses Multiple fractures of ribs S22.42XA Encounter type: initial encounter Fracture type: closed Laterality: left Minor contusion of spleen, initial encounter S36.020A Fall W19.XXXA Encounter type: initial encounter Sensory ataxia R27.8 Tardive dyskinesia G24.01 Cirrhosis, alcoholic K70.30 Hypogonadism in male E29.1 Type 2 diabetes mellitus E11.9 Weakness R53.1 TERI (obstructive sleep apnea) G47.33 Polypharmacy Z79.899 Microscopic hematuria R31.29 Mixed restrictive and obstructive lung disease J43.9; J98.4 Chronic respiratory failure with hypoxia J96.11 BPH (benign prostatic hyperplasia) N40.0 DVT prophylaxis Z29.9 Discharge planning issues Z02.9 (1) Multiple fractures of ribs Encounter type: initial encounter Fracture type: closed Laterality: left Qualified Code(s): S22.42XA - Multiple fractures of ribs, left side, initial encounter for closed fracture (2) Fall Encounter type: initial encounter Qualified Code(s): W19.XXXA - Unspecified fall, initial encounter
[2020-03-19] MEDS: TRAZODONE HCL 50 MG TAB PO SCH (21:42)
[2020-03-19] MEDS: SIMVASTATIN 40 MG TAB PO SCH (21:43)
[2020-03-19] MEDS: AMLODIPINE BESYLATE 5 MG TAB PO SCH (21:43)
[2020-03-19] MEDS: ARIPiprazole 5 MG TAB PO SCH (21:43)
[2020-03-19] MEDS: ACETAMINOPHEN 500 MG TAB PO SCH (21:44)
[2020-03-19] MEDS: DOCUSATE SODIUM/SENNA 50/8.6MG TAB PO SCH (21:44)
[2020-03-20] MEDS: OXYCODONE HCL IR 5 MG TAB (IMMEDIATE RELEASE) PO PRN ×3 (04:45→16:34)
--- NOTE | 2020-03-20 09:11 | Surgery Progress Note ---
Date of Service March 20, 2020 Assessment & Plan (1) Multiple fractures of ribs: Vital signs stable Wean O2 as able to room air Continue pulmonary toilet Dispo planning per medicine Pt seen and examined with Dr. Davenport Subjective Pt says he is doing okay. Eating his meals pending on what is appetizing to him. [place] like he had some shortness of breath this AM. Physical Exam Physical Exam: awake/alert Constitutional: no acute distress Respiratory: normal respiratory effort Results & Data Vital Signs (Past 12 Hours) Vital Signs Temp Pulse Resp BP Pulse Ox 03/20/20 08:14 36.9 C 66 18 160/71 H 90 03/19/20 23:32 36.7 C 62 16 136/65 94 PG Care Time/CCT Total # of Minutes Spent Total Time Spent with Patient: Total time spent is greater than 50% in coordination of care (as documented) at patient's floor/unit and/or counseling patient: Coding Level of Care Code 61566 Subseq Hosp Care Lvl 1 Diagnoses Multiple fractures of ribs S22.42XA Encounter type: initial encounter Fracture type: closed Laterality: left (1) Multiple fractures of ribs Encounter type: initial encounter Fracture type: closed Laterality: left Qualified Code(s): S22.42XA - Multiple fractures of ribs, left side, initial encounter for closed fracture
[2020-03-20] MEDS: SPIRONOLACTONE 25 MG TAB PO SCH ×2 (09:13→17:37)
[2020-03-20] MEDS: CALCIUM 600MG + VIT D 400 IU TAB PO SCH (09:14)
[2020-03-20] MEDS: VENLAFAXINE HCL XR 150 MG CAPXR PO SCH (09:14)
[2020-03-20] MEDS: BusPIRone 15 MG TAB PO SCH ×2 (09:14→20:53)
[2020-03-20] MEDS: MAGNESIUM OXIDE 400 MG TAB PO SCH (09:15)
[2020-03-20] MEDS: GABAPENTIN 600 MG TAB PO SCH ×4 (09:15→20:54)
[2020-03-20] MEDS: VITAMIN B COMPLEX TAB PO SCH (09:16)
[2020-03-20] MEDS: FINASTERIDE 5 MG TAB PO SCH (09:16)
[2020-03-20] MEDS: DOCUSATE SODIUM/SENNA 50/8.6MG TAB PO SCH ×2 (09:16→20:52)
[2020-03-20] MEDS: ACETAMINOPHEN 500 MG TAB PO SCH ×3 (09:16→20:55)
[2020-03-20] MEDS: CHOLECALCIFEROL 1,000 UNITS 25 MCG TAB PO SCH (09:17)
[2020-03-20] MEDS: THIAMINE HCL 100 MG TAB PO SCH (09:17)
[2020-03-20] MEDS: AMANTADINE HCL 100 MG CAPSULE PO SCH ×2 (09:18→20:54)
[2020-03-20] MEDS: TRAMADOL HCL 50 MG TABLET PO PRN ×2 (09:25→21:00)
[2020-03-20] MEDS: LIDOCAINE 5% 1 PATCH TD SCH (09:29)
[2020-03-20] MEDS: INSULIN GLARGINE SOLOSTAR 100 UNITS/ML 3 ML PEN SC SCH ×2 (09:29→20:57)
[2020-03-20] MEDS: INSULIN ASPART 100 UNITS/ML 3 ML PEN SC SCH ×4 (09:29→20:56)
--- NOTE | 2020-03-20 10:11 | XRay Report ---
XR chest 1V portable CLINICAL HISTORY: 79 years-old Male presenting with eval for progressive effusion. TECHNIQUE: Portable upright AP view of the chest was obtained. COMPARISON: 03/19/2020. FINDINGS: Radiopaque sutures project over the mediastinum. Atherosclerosis of the aortic arch. Cardiac silhouet te enlarged. Persistent left basilar opacity, stable to increased from prior. Small left pleural effu claudia, increased from prior. No pneumothorax. Redemonstration of the acute mildly displaced posterior left sixth rib fracture. Additional subtle rib fracture deformities may be chronic. Degenerative jose ges of the spine. Upper abdomen normal. IMPRESSION: 1. Left basilar atelectasis and suspected left pleural effusion. This is stable to slightly increase d from prior. 2. Acute left posterior sixth rib fracture. No pneumothorax. ACT 112: Negative or not required by law. Electronically signed by: David Gonzalez M.D. 03/20/2020 10:09 AM
[2020-03-20] MEDS ORDERED: bisacodyL 10 MG SUPP PR STA (10:57)
[2020-03-20] MEDS ORDERED: POLYETHYLENE (MIRALAX) 17 GM PACK PO ONE (10:58)
--- NOTE | 2020-03-20 14:30 | Hospitalist Progress Note ---
Date of Service March 20, 2020 Assessment & Plan (1) Multiple fractures of ribs: pain control reasonable at rest, still painful with much movement -- continue lidocaine patch Incentive spirometry Q1HWA Limited options for pain relief given liver cirrhosis and concern for hemothorax given persistent pain did start oxycodone and escalate dosing on 03/20/20 (2) Minor contusion of spleen, initial encounter: No current need for intervention but may be contributing towards his left sided pain, CBC stable (3) Fall: Suspect secondary to longstanding sensory ataxia +/- polypharmacy --PT/OT eval and treat --> anticipate need for rehab or subacute rehab. 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 B12 542, current A1c pending (but most recent was 6) (5) Tardive dyskinesia: seems to relate to abilify. ongoing neuro follow up as outpt (see dr waller's most recent notes) although would also want to try to reduce abilify as part of polypharmacy plan if possible (6) Cirrhosis, alcoholic: Noted history of this. LFTs and INR WNL although thrombocytopenia noted. ammonia level was OK (7) Hypogonadism in male: Unclear diagnosis of this will hold his testosterone patch while here as likely making BPH worse. (8) Type 2 diabetes mellitus: continue basal bolus - although at reduced doses from home regimen given low recent A1cs (9) Weakness: PT/OT eval and treat anticipate rehab or subacute rehab (10) TERI (obstructive sleep apnea): Wears BiPAP intermittently (11) Polypharmacy: Very concerning combination of Xanax, Buspar, Abilify, Effexor, trazodone, gabapentin and Nucynta. 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 dtr noted that nucynta has probably helped the most with pain//he would likely be most reticent to have this changed --d/w her that this can be left alone until/unless dose alteration of this is truly needed (12) Microscopic hematuria: Noted. 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 Uses nebs PRN. no SOB today despite rib fractures, encouraged IS use (14) Chronic respiratory failure with hypoxia: On home O2 but his daughter questions compliance with this (15) BPH (benign prostatic hyperplasia): med list had 2 alpha blockers - admitting cleaned this up to 1. continue silodosin 8mg HS and finasteride (16) DVT prophylaxis: No SCDs due to falls risk No chemical prophylaxis due to risk of bleeding/hemothorax following acute trauma. (17) Discharge planning issues: PT/OT eval and treat anticipate SNF for rehab once ready for discharge Admission and Anticipated Discharge Date Admission Date: March 17, 2020 Subjective Patient has suboptimal pain control with his rib fractures and splenic contusion he has also markedly constipated we are attempting to work on these issues to promote better bowel movements and control his pain. Once his pain is controlled he will likely be transition to [facility] Review of Systems Review of Systems: Moderate distress with breathing and movement no headache, blurry or double vision no speech or swallowing issues Sharp chest pain with inspiration, no pressure or palpitations no shortness of breath, cough or wheezes Left upper abdominal pain, no nausea or vomiting, complains of constipation no dysuria, hematuria or frequency no focal joint pain or swelling no back pain, CVA tenderness or radicular pain no focal signs of weakness or numbness or altered sensation no complaints or anxiety or depression Physical Exam Physical Exam: The patient appeared well nourished and in moderate discomfort Vital signs as documented. Head exam is unremarkable. No scleral icterus Neck is without JVD, thyromegaly, or carotid bruits. Lungs are clear to auscultation, no focal loss of breath sounds decreased air movement consistent with COPD Cardiac exam, Rhythm is regular.. No murmurs, rubs or gallops chest wall is tender on the left side to palpation. Abdominal exam reveals normal bowel sounds, soft tender left upper quadrant no masses are felt Extremities are with trace edema and both pedal pulses are normal. Neurologic exam is alert and oriented, no focal loss of strength or sensation Skin is without bruises or rashes Psychologically is without concerns for anxiety or depression Results & Data Results & Data ([facility]) Vital Signs (Past 12 Hours) Vital Signs Temp Pulse Resp BP Pulse Ox 03/20/20 08:14 98.4 F 66 18 160/71 H 90 PG Care Time/CCT Total # of Minutes Spent Total Time Spent with Patient: Total time spent is greater than 50% in coordination of care (as documented) at patient's floor/unit and/or counseling patient: Coding Level of Care Code 79594 Subseq Hosp Care Lvl 2 Diagnoses Multiple fractures of ribs S22.42XA Encounter type: initial encounter Fracture type: closed Laterality: left Minor contusion of spleen, initial encounter S36.020A Fall W19.XXXA Encounter type: initial encounter Sensory ataxia R27.8 Tardive dyskinesia G24.01 Cirrhosis, alcoholic K70.30 Hypogonadism in male E29.1 Type 2 diabetes mellitus E11.9 Weakness R53.1 TERI (obstructive sleep apnea) G47.33 Polypharmacy Z79.899 Microscopic hematuria R31.29 Mixed restrictive and obstructive lung disease J43.9; J98.4 Chronic respiratory failure with hypoxia J96.11 BPH (benign prostatic hyperplasia) N40.0 DVT prophylaxis Z29.9 Discharge planning issues Z02.9 (1) Multiple fractures of ribs Encounter type: initial encounter Fracture type: closed Laterality: left Qualified Code(s): S22.42XA - Multiple fractures of ribs, left side, initial encounter for closed fracture (2) Fall Encounter type: initial encounter Qualified Code(s): W19.XXXA - Unspecified fall, initial encounter
[2020-03-20] MEDS: ARIPiprazole 5 MG TAB PO SCH (20:52)
[2020-03-20] MEDS: AMLODIPINE BESYLATE 5 MG TAB PO SCH (20:54)
[2020-03-20] MEDS: TRAZODONE HCL 50 MG TAB PO SCH (20:54)
[2020-03-20] MEDS: SIMVASTATIN 40 MG TAB PO SCH (20:55)
[2020-03-21] MEDS ORDERED: POLYETHYLENE (MIRALAX) 17 GM PACK PO SCH (09:00)
[2020-03-21] MEDS: INSULIN GLARGINE SOLOSTAR 100 UNITS/ML 3 ML PEN SC SCH (09:12)
[2020-03-21] MEDS: INSULIN ASPART 100 UNITS/ML 3 ML PEN SC SCH ×2 (09:14→11:57)
[2020-03-21] MEDS: CALCIUM 600MG + VIT D 400 IU TAB PO SCH (09:22)
[2020-03-21] MEDS: BusPIRone 15 MG TAB PO SCH (09:22)
[2020-03-21] MEDS: SPIRONOLACTONE 25 MG TAB PO SCH (09:22)
[2020-03-21] MEDS: VENLAFAXINE HCL XR 150 MG CAPXR PO SCH (09:23)
[2020-03-21] MEDS: FINASTERIDE 5 MG TAB PO SCH (09:24)
[2020-03-21] MEDS: LIDOCAINE 5% 1 PATCH TD SCH (09:24)
[2020-03-21] MEDS: MAGNESIUM OXIDE 400 MG TAB PO SCH (09:24)
[2020-03-21] MEDS: GABAPENTIN 600 MG TAB PO SCH (09:24)
[2020-03-21] MEDS: AMANTADINE HCL 100 MG CAPSULE PO SCH (09:25)
[2020-03-21] MEDS: DOCUSATE SODIUM/SENNA 50/8.6MG TAB PO SCH (09:25)
[2020-03-21] MEDS: ACETAMINOPHEN 500 MG TAB PO SCH (09:25)
[2020-03-21] MEDS: THIAMINE HCL 100 MG TAB PO SCH (09:26)
[2020-03-21] MEDS: CHOLECALCIFEROL 1,000 UNITS 25 MCG TAB PO SCH (09:26)
[2020-03-21] MEDS: VITAMIN B COMPLEX TAB PO SCH (09:26)
[2020-03-21] MEDS: OXYCODONE HCL IR 5 MG TAB (IMMEDIATE RELEASE) PO PRN (09:28)
[2020-03-21] MEDS: TRAMADOL HCL 50 MG TABLET PO PRN (12:01)
--- NOTE | 2020-03-21 16:49 | Discharge Summary ---
Date of Service March 21, 2020 Admission HPI Per Admitting Provider Guy Page is a 79 year old male brought in by EMS after an unwitnessed fall at home. He reports trying to pick upa pill from the floor he had dropped a couple of times around 2am. On the second time of trying to pick it up he suddenly lost his balance and had to wang forward but fell onto his left wrist and left side of his chest. He was not able to get up from the floor. He denies any symptoms prior to falling such as chest pain, shortness of breath or lightheadedness. He does not think he lost consciousness. He has not been able to get up following the fall and has had considerable left sided chest pain over the site of his rib fracutres. On discussion with his daughter she notes he has been getting increasing off balance but also just with general confusion over the last 2 weeks when he has had 4 falls. She is concerned about Parkinsonism given history of suddenly needing to move forward. She lives in [place] so has been talking to him on the phone but is not there to see his falls. Principal Diagnosis Multiple rib fractures on the left Contusion of spleen Sensory ataxia Tardive dyskinesia Alcoholic cirrhosis Type 2 diabetes Opiate associated constipation Discharge Exam The patient appeared well still had pain with movement Vital signs as documented. Lungs are clear to auscultation and appear unlabored although still having pleuritic pain with deep inspiration Cardiac exam, Rhythm is regular.. No murmurs, rubs or gallops. Abdominal exam reveals normal bowel sounds, soft tender in the left side of the abdomen, no masses Extremities are mildly edematous and both pedal pulses are normal. Neurologic exam is alert and oriented, no focal loss of strength or sensation Skin is without bruises or rashes Psychologically is without concerns for anxiety or depression Discharge Data Allergies Allergy/AdvReac Type Severity Reaction Status Date / Time cyclobenzaprine Allergy Severe COLLAPSE Verified 03/17/20 14:49 morphine Allergy Intermediate other Verified 03/17/20 14:49 lisinopril Allergy Mild UNKNOWN Verified 03/17/20 14:49 pioglitazone Allergy Mild UNKNOWN Verified 03/17/20 14:49 prochlorperazine Allergy Mild UNKNOWN Verified 03/17/20 14:49 carisoprodol [From Soma] Allergy Unknown ON [facility] Verified 03/17/20 14:49 LIST glimepiride Allergy Unknown Unknown Rxn Verified 03/17/20 14:49 lamotrigine [From Lamictal] Allergy Unknown [facility] LIST Verified 03/17/20 14:49 mirtazapine Allergy Unknown UNKNOWN Verified 03/17/20 14:49 olmesartan [From Benicar] Allergy Unknown ON [facility] Verified 03/17/20 14:49 LIST quetiapine [From Seroquel] Allergy Unknown ON [facility] Verified 03/17/20 14:49 LIST tamsulosin [From Flomax] Allergy Unknown [facility] LIST Verified 03/17/20 14:49 telmisartan [From Micardis] Allergy Unknown ON [facility] Verified 03/17/20 14:49 LIST Dyazide AdvReac Mild WEIGHT Verified 05/22/18 01:18 GAIN,DIZZINESS , FALLS hydrochlorothiazide AdvReac Mild WEIGHT Verified 03/17/20 14:49 GAIN,DIZZINESS , FALLS streptomycin AdvReac Mild REMOTE Verified 03/17/20 14:49 RXN, "TINGLING IN LEGS" DENIES SOB/RASH tazobactam AdvReac Mild REDNESS AT Verified 03/17/20 14:49 INJECTION SITE triamterene AdvReac Mild WEIGHT Verified 03/17/20 14:49 GAIN,DIZZINESS , FALLS propoxyphene AdvReac Unknown UNKNOWN Verified 03/17/20 14:49 Consultations 03/17/20 17:52 ED Decision to Admit Stat 03/17/20 21:07 Consult General Surgery Routine 03/18/20 09:05 Consult Case Management - Discharge Planning Routine Ordered Studies 03/17/20 13:18 CT abd pelvis IV con only Stat Hospital Course (1) Multiple fractures of ribs: pain control reasonable at rest, still painful with much movement -will discharged on oxycodone and Tylenol Incentive spirometry Q1HWA Limited options for pain relief given liver cirrhosis and concern for hemothorax given persistent pain did start oxycodone and escalate dosing on 03/20/20 (2) Minor contusion of spleen, initial encounter: No current need for intervention but may be contributing towards his left sided pain, CBC stable (3) Fall: Suspect secondary to longstanding sensory ataxia +/- polypharmacy --PT/OT eval and treat --> continue rehabilitation at [facility] (4) Sensory ataxia: probably contributing to falls as well longstanding neurology pt. B12 542, Hemoglobin A1c is 6.1 on March 18 (5) Tardive dyskinesia: seems to relate to abilify. ongoing neuro follow up as outpt (see dr waller's most recent notes) (6) Cirrhosis, alcoholic: Noted history of this. LFTs and INR WNL although thrombocytopenia noted. ammonia level was OK (7) Hypogonadism in male: continue his testosterone patch (8) Type 2 diabetes mellitus: continue basal bolus - although at reduced doses from home regimen given low recent A1cs (9) Weakness: PT/OT eval and treat anticipate rehab to improve overall strength (10) TERI (obstructive sleep apnea): Wears BiPAP intermittently (11) Microscopic hematuria: Noted. Follow up outpatient urology for cysto (12) Mixed restrictive and obstructive lung disease: No recent COPD exacerbations. Uses nebs PRN. no SOB today despite rib fractures, encouraged IS use (13) Chronic respiratory failure with hypoxia: On home O2 but his daughter questions compliance with this Total Time Total Time Spent Total Time Spent (In Minutes): It required greater than 30 minutes to prepare this patient for discharge Discharge Plan Discharge Items Patient Disposition: Transfer Inpatient Rehab Fac Reason For Visit: FALL,RIB FRACTURES Discharge Diagnosis: fall rib fractures splenic contusion Condition on Discharge: Good Activity: Per Instructions section Activity Comment: as per PT/OT Non-emergency contact: Primary Care Provider Call non-emergency contact if: you have any medication questions Follow-up/Referrals: Reji Gunderson MD [Primary Care Provider] - Diet: Carb Consistent or DM2 Addtl Attending Provider Instructions: this pt may need adjustment of pain medicines Addtl Finishing Wire Sawyer Provider Instructions: the pts typical insulin has been reduced from 24 units a day to 16 this pt has had issues in the past with opiate issues, caution if considering discharge on opiates, was on home nucynta but was not controlling his pian Pending Studies at Discharge: No Stand-Alone Forms: My Anatex[facility], Opioid Pain Management Skilled Items Patient informed of condition?: Yes DNR: No Discharge Level of Care: Acute rehab Communicable Disease: No Discharge Prognosis: Improving Lines: None Urinary Catheter: Yes Medications and DC Order Prescriptions: New acetaminophen 500 mg Tablet 1,000 mg PO BID Qty: 60 RF: 0 oxycodone 5 mg Tablet 10 mg PO Q4H PRN (Reason: pain) Qty: 20 RF: 0 Continued ipratropium-albuterol 0.5 mg-3 mg(2.5 mg base)/3 mL solution for nebulization 3 ml INH Q4H PRN (Reason: Shortness Of Breath Or Wheezing) RF: 0 spironolactone [Aldactone] 25 mg tablet 25 mg PO BID RF: 0 simvastatin [Zocor] 40 mg tablet 40 mg PO QPM RF: 0 trazodone 150 mg tablet 150 mg PO HS RF: 0 buspirone 30 mg tablet 30 mg PO BID RF: 0 aspirin 81 mg tablet,chewable 81 mg PO QAM RF: 0 fluticasone propionate [Flonase Allergy Relief] 50 mcg/actuation spray,suspension 1 sprays INTNAS DAILY PRN (Reason: Nasal Congestion) RF: 0 B-complex with vitamin C capsule 2 cap PO QAM RF: 0 cholecalciferol (vitamin D3) 2,000 unit tablet 2,000 units PO QAM RF: 0 metformin 1,000 mg tablet 500 mg PO BID RF: 0 alprazolam [Xanax] 0.5 mg tablet 0.5 mg PO TID PRN (Reason: Anxiety) RF: 0 testosterone [AndroGel] 1.62 % (40.5 mg/2.5 gram) gel in packet 0 mg topical PM RF: 0 magnesium oxide 400 mg magnesium tablet 400 mg PO QAM RF: 0 amantadine HCl 100 mg tablet 100 mg PO BID 30 Days Qty: 60 RF: 2 gabapentin 800 mg tablet 800 mg PO QID 90 Days Qty: 360 RF: 0 desonide 0.05 % cream 1 applic topical BID PRN (Reason: flare ups) RF: 0 amlodipine 5 mg Tablet 5 mg PO PM RF: 0 betamethasone dipropionate 0.05 % Cream 1 applic TOPICAL DIRECTED PRN (Reason: NEEDED) RF: 0 calcium carbonate-vitamin D3 [Calcium 600 + D(3)] 600 mg(1,500mg) -400 unit Tablet 1 tab PO QAM RF: 0 venlafaxine [Effexor XR] 150 mg capsule,extended release 24hr 300 mg PO QAM RF: 0 tamsulosin [Flomax] 0.4 mg capsule 0.4 mg PO PM RF: 0 aripiprazole [Abilify] 10 mg tablet 10 mg PO HS RF: 0 budesonide 0.5 mg/2 mL suspension for nebulization 0.5 mg NEB BID PRN (Reason: Shortness Of Breath Or Wheezing) RF: 0 furosemide [Lasix] 20 mg tablet 10 mg PO DAILY PRN (Reason: fluid build-up) RF: 0 lidocaine HCl 2 % cream 1 appln TOP BID PRN (Reason: Pain) RF: 0 insulin aspart U-100 [Novolog U-100 Insulin aspart] 100 unit/mL Solution 1 sliding scale dose SUBCUT USEASDIRECTD Qty: 0 RF: 0 finasteride 5 mg tablet 5 mg PO QAM RF: 0 silodosin 8 mg capsule 8 mg PO PM RF: 0 Changed Basaglar KwikPen U-100 Insulin 100 unit/mL (3 mL) insulin pen 16 unit SUBCUT HS Qty: 0 RF: 0 Discontinued Nucynta ER 100 mg tablet extended release 12 hr 100 mg PO Q12H Qty: 60 RF: 0 tadalafil 20 mg Tablet 20 mg PO DIRECTED PRN (Reason: 1 HR PRIOR TO ACTIVITY) RF: 0 Discharge Orders: Discharge Order (Routine); Ordered 03/21/20 Ordered By: Valente Jin Admission Data Admit Date/Time: 03/17/20 19:33 Attending Provider: Valente Jin Admit Provider: Zan Ng Primary Care Provider: Reji Gunderson Other Providers: Zan Ng ; Randal Davenport ; [facility] ; [place] Other Interventions: Discharge Summary Assessment (RN) Last Done: 03/21/20 11:06 DC Date/Time DO NOT enter until pt leaves facility: 03/21/20 12:34 Coding Level of Care Code D/C Day Management >30 mins Diagnoses Multiple fractures of ribs S22.42XA Encounter type: initial encounter Fracture type: closed Laterality: left Minor contusion of spleen, initial encounter S36.020A Fall W19.XXXA Encounter type: initial encounter Sensory ataxia R27.8 Tardive dyskinesia G24.01 Cirrhosis, alcoholic K70.30 Hypogonadism in male E29.1 Type 2 diabetes mellitus E11.9 Weakness R53.1 TERI (obstructive sleep apnea) G47.33 Microscopic hematuria R31.29 Mixed restrictive and obstructive lung disease J43.9; J98.4 Chronic respiratory failure with hypoxia J96.11
== END 2020-03-21 12:34 | DRG 184 ==
LOC: ED 13:09 → INTOOBSV 19:33 → SUATTDRO 19:33 → 2S 19:33 → 3E 03-18 19:01

== ENCOUNTER 2020-04-03 09:57 | Inpatient (IN) ==
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
--- NOTE | 2020-04-03 10:35 | XRay Report ---
XR chest 1V portable CLINICAL HISTORY: Altered mental status. COMPARISON STUDY: Chest radiograph March 20, 2020. FINDINGS: There is no pneumothorax. Trace left pleural effusion is noted. Postoperative findings with in the anterior chest wall are noted. Cardiomediastinal silhouette is stable. There is no consolidati on to suggest pneumonia. Multiple mildly displaced left-sided rib fractures are noted. The majority o f these were present on exam of March 20, 2020. A left third rib fracture was not clearly identified on that exam. IMPRESSION: 1. No pneumothorax. Trace left pleural effusion. 2. Multiple mildly displaced left-sided rib fractures, the majority of which were present on exam of March 20, 2020. At least one was not clearly evident on prior exam. ACT 112: Negative or not required by law. Electronically signed by: Javed Cary M.D. 04/03/2020 10:34 AM
[2020-04-03 11:07] LABS: Basophils # (auto) 0.01 K/uL (0-0.2); Basophils % (auto) 0.1 %; Eosinophils # (auto) 0.02 K/uL (0-0.5); Eosinophils % (auto) 0.2 %; Hematocrit (blood only) 35.3 % (42-52); Hemoglobin 12.5 g/dL (14.0-18.0); Immature Granulocytes # (auto) 0.02 K/uL (0.00-0.02); Immature Granulocytes % (auto) 0.2 %; Lymphocytes % (auto) 8.3 %; Mean Corpuscular Hemoglobin 29.6 pg (25-34); Mean Corpuscular Hgb Conc 35.4 g/dL (32-36); Mean Corpuscular Volume 83.6 fL (80-100); Mean Platelet Volume 9.9 fL (7.4-10.4); Monocytes # (auto) 0.79 K/uL (0.11-0.59); Monocytes % (auto) 8.2 %; Neutrophils # (auto) 7.95 K/uL (1.4-6.5); Platelet Count 116 K/uL (130-400); RDW Coefficient of Variation 13.1 % (11.5-14.5); RDW Standard Deviation 39.4 fL (36.4-46.3); Red Blood Count 4.22 M/uL (4.7-6.1); White Blood Count 9.59 K/uL (4.8-10.8)
[2020-04-03 11:20] LABS: INR 1.1 (0.9-1.1); Partial Thromboplastin Time 27.9 Seconds (21.0-31.0); Prothrombin Time 11.4 Seconds (9.0-12.0)
[2020-04-03 11:23] LABS: Alanine Aminotransferase 54 U/L (12-78); Albumin Level 3.6 gm/dl (3.4-5.0); Aspartate Aminotransferase 23 U/L (15-37); BUN Creatinine Ratio 23.5 (10-20); Blood Urea Nitrogen 17 mg/dl (7-18); Calcium 9.3 mg/dl (8.5-10.1); Carbon Dioxide 26 mmol/L (21-32); Chloride 91 mmol/L (98-107); Creatinine Clr Calc Pharmacy 104.1 ml/min; Est GFR (African American) 102.2; Est GFR (Non-African American) 88.2; Glucose 152 mg/dl (70-99); Magnesium 1.8 mg/dl (1.8-2.4); Potassium 4.1 mmol/L (3.5-5.1); Sodium 125 mmol/L (136-145)
[2020-04-03 11:34] LABS: Albumin Globulin Ratio 1.3 (0.9-2); Alkaline Phosphatase 173 U/L (45-117); Bilirubin,Total 0.6 mg/dl (0.2-1); Globulin 2.8 gm/dl (2.5-4.0); Total Protein 6.4 gm/dl (6.4-8.2); Troponin I < 0.015 ng/ml (0-0.045)
[2020-04-03] MEDS ORDERED: SODIUM CHLORIDE 0.9% 1000ML 1,000 ML IV ONE (15:13)
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
[2020-04-03] MEDS ORDERED: PROPRANOLOL HCL 10 MG TAB PO ONE (15:45)
[2020-04-03] MEDS ORDERED: LABETALOL HCL IV 5 MG/ML 20ML IV STA (15:52)
--- NOTE | 2020-04-03 15:54 | Electrocardiogram Report ---
Test Reason : Blood Pressure : / mmHG Vent. Rate : 084 BPM Atrial Rate : 084 BPM P-R Int : 246 ms QRS Dur : 090 ms QT Int : 368 ms P-R-T Axes : 087 -48 055 degrees QTc Int : 434 ms Sinus rhythm with 1st degree A-V block Left axis deviation Incomplete right bundle branch block Abnormal ECG When compared with ECG of 17-MAR-2020 13:24, No significant change was found Confirmed by Guanako Krihsnan ([id number]) on 04/03/2020 3:53:50 PM Referred By: [facility] Confirmed By:Joe Krishnan
--- NOTE | 2020-04-03 16:00 | Ultrasound Report ---
ULTRASOUND ABDOMEN COMPLETE CLINICAL HISTORY: Generalized abdominal pain. COMPARISON STUDY: Abdominal CT dated 03/17/2020 and 03/23/2008. TECHNIQUE: Real-time, grayscale, and color flow sonography of the abdomen was performed. Images are r eviewed in the transverse and longitudinal planes. FINDINGS: Liver: The liver is cirrhotic in morphology and heterogeneous in echotexture. There is no intrahepati c biliary ductal dilatation. The main portal vein is patent. Gallbladder: There are calcified shadowing gallstones. There is no gallbladder wall thickening or per icholecystic fluid. A sonographic Lopez's sign is reportedly absent. The common bile duct measures u p to 0.5 cm in diameter. Pancreas: Visualized portions of the pancreatic head and body are normal in appearance. The splenic v ein is patent. Spleen: The spleen is enlarged, measuring 15.3 cm in length. A 6.8 cm heterogeneous focus in the sple en is again noted. Kidneys: The kidneys demonstrate cortical atrophy and are without hydronephrosis. The right kidney me asures 10.4 cm in length and the left kidney measures 11.0 cm in length. No shadowing calculi are vick ntified. Abdominal vasculature: Visualized portions of the abdominal aorta are normal in caliber. Ascites: None. IMPRESSION: 1. Cholelithiasis without sonographic evidence of acute cholecystitis. 2. Cirrhotic liver morphology. 3. Splenomegaly. 4. A 6.8 cm heterogeneous focus is noted within the spleen. This is pathologically indeterminant, but was also seen on the recent abdominal CT. This was not clearly seen on older abdominal CT scans. ACT 112: Negative or not required by law. Electronically signed by: Darin Mcarthur M.D. 04/03/2020 3:59 PM
[2020-04-03] MEDS ORDERED: GLUCOSE 10 TABS/TUBE PO PRN (16:24)
[2020-04-03] MEDS ORDERED: CARBOHYDRATES FOR HYPOGLYCEMIA PO PRN (16:24)
[2020-04-03] MEDS ORDERED: HydrALAZINE HCL 20 MG/ML VIAL IV PRN (16:24)
[2020-04-03] MEDS ORDERED: FLUTICASONE PROPIONATE NA SPR 16 GM BTL PRN (16:24)
[2020-04-03] MEDS ORDERED: DEXTROSE 50% 50 ML SYRINGE IV PRN (16:24)
[2020-04-03] MEDS ORDERED: GLUCAGON FOR INJ 1 MG VIAL SQ PRN (16:24)
[2020-04-03] MEDS ORDERED: GLUCOSE 40% GEL 15 GM TUBE PO PRN (16:24)
[2020-04-03] MEDS ORDERED: ALBUTEROL HFA 8 GM INHALER INH PRN (16:24)
[2020-04-03] MEDS: GABAPENTIN 800 MG TAB PO SCH ×2 (17:28→20:33)
--- NOTE | 2020-04-03 17:47 | Progress Note ---
Date of Service April 03, 2020 Received a page that the patient was now in a Mobitz type II second-degree AV block. Also was noted on telemetry to have heart rates as low as the 30s. Saw patient at bedside. He is awake, alert, still not really answering questions, but he is happily eating his dinner without assistance. He denies any chest pain, shortness of breath, or any symptoms. EKG on admit was NSR with 1st degree AV block. Present exam: Heart auscultation notes regular rhythm. Lungs are clear. Spoke with Dr. Solomon (cardiology). Discussed the new finding of this Mobitz type II block. He recommended continued monitoring given that the patient is asymptomatic and has no evidence of present hemodynamic instability. - Of course, if the patient were to become symptomatic or persistently bradycardic, pacer pads should be applied. - Patient has pending electrolytes recheck for 6 PM tonight. We will try to optimize potassium and magnesium. Discussed the above with Dr. Lemon (hospitalist). Will also sign this out to the overnight team. Priscila Heart, PGY3 Assessment & Plan Admission and Anticipated Discharge Date Admission Date: April 03, 2020 Supervising Physician Co-Signing Physician Notes Patient seen-see my supervising physician statement from admitting history and physical Results & Data ([facility]) Vital Signs (Past 12 Hours) Vital Signs Temp Pulse Pulse Resp BP BP Pulse Ox 04/03/20 16:33 40 L 04/03/20 16:24 36.6 C 72 18 158/76 H 99 04/03/20 15:56 82 18 154/68 H 100 04/03/20 15:01 83 13 242/130 H 100 04/03/20 14:31 77 16 262/144 H 100 04/03/20 14:00 79 18 198/96 H 100 04/03/20 13:31 79 16 222/124 H 100 04/03/20 13:00 78 20 210/89 H 100 04/03/20 12:30 75 18 198/87 H 100 04/03/20 12:01 79 15 190/100 H 99 04/03/20 11:30 78 16 196/83 H 99 04/03/20 11:00 77 17 193/86 H 99 04/03/20 10:19 86 20 158/73 H 99 04/03/20 10:17 98 04/03/20 10:13 81 20 99 04/03/20 10:10 83 18 98 04/03/20 10:05 36.9 C 85 16 164/64 H 98 04/03/20 10:04 88 15 164/64 H 98 Pulse Ox 04/03/20 16:33 04/03/20 16:24 99 04/03/20 15:56 04/03/20 15:01 04/03/20 14:31 04/03/20 14:00 04/03/20 13:31 04/03/20 13:00 04/03/20 12:30 04/03/20 12:01 04/03/20 11:30 04/03/20 11:00 04/03/20 10:19 04/03/20 10:17 04/03/20 10:13 04/03/20 10:10 04/03/20 10:05 04/03/20 10:04
[2020-04-03] MEDS: INSULIN ASPART 100 UNITS/ML 3 ML PEN SC SCH ×2 (18:14→20:37)
[2020-04-03 18:38] LABS: BUN Creatinine Ratio 17.9 (10-20); Bilirubin Direct 0.3 mg/dl (0-0.2); Calcium 8.8 mg/dl (8.5-10.1); Creatinine Clr Calc Pharmacy 92.7 ml/min; Est GFR (African American) 97.5; Est GFR (Non-African American) 84.1; Magnesium 1.8 mg/dl (1.8-2.4); Potassium 4.6 mmol/L (3.5-5.1)
[2020-04-03 18:40] LABS: Bilirubin,Total 0.7 mg/dl (0.2-1)
[2020-04-03] MEDS ORDERED: MAGNESIUM SULFATE / D5W 1 GM/100 ML BAG IV ONE (19:00)
[2020-04-03] MEDS ORDERED: SODIUM CHLORIDE 0.9% 1000ML 1,000 ML IV SCH (19:30)
[2020-04-03] MEDS: ARIPiprazole 10 MG TAB PO SCH (20:31)
[2020-04-03] MEDS: ENOXAPARIN INJ 30 MG/0.3 ML SYR SQ SCH (20:32)
[2020-04-03] MEDS: DOCUSATE SODIUM 100 MG CAP PO SCH (20:32)
[2020-04-03] MEDS: TRAZODONE HCL 50 MG TAB PO SCH (20:33)
[2020-04-03] MEDS: ACETAMINOPHEN 500 MG TAB PO SCH (20:34)
[2020-04-03] MEDS: AMLODIPINE BESYLATE 5 MG TAB PO SCH (20:34)
[2020-04-03] MEDS: AMANTADINE HCL 100 MG CAPSULE PO SCH (20:36)
[2020-04-03] MEDS: SIMVASTATIN 40 MG TAB PO SCH (20:36)
[2020-04-03] MEDS: BusPIRone 15 MG TAB PO SCH (20:37)
[2020-04-03] MEDS ORDERED: PROPRANOLOL HCL 10 MG TAB PO SCH (21:00)
[2020-04-03 22:25] LABS: Appearance Urine Cloudy (Clear); Bacteria Urine Automated 4+ (Negative); Bilirubin Urine Negative (Negative); Blood Urine Negative (Negative); Cast Urine Automated 0 /lpf (0-5); Color Urine Yellow; Glucose Urine UA Negative (Negative); Ketones Urine Negative (Negative); Leukocyte Esterase Urine Negative (Negative); Nitrite Urine Negative (Negative); Protein Urine Negative (Negative); RBC Urine Automated 0-4 /hpf (0-4); Specific Gravity Urine 1.015 (1.000-1.030); Urobilinogen Urine Negative (Negative)
[2020-04-03 22:44] LABS: Amphetamines+Metham, Urine Neg (Neg); Barbiturates, Urine Neg (Neg); Benzodiazepine, Urine Neg (Neg); Cocaine, Urine Neg (Neg); MDMA (Ecstacy), Urine Neg (Neg); Methadone, Urine Neg (Neg); Opiate, Urine Neg (Neg); Phencyclidine, Urine Neg (Neg)
[2020-04-04 06:40] LABS: Hematocrit (blood only) 40.3 % (42-52); Hemoglobin 14.5 g/dL (14.0-18.0); Mean Corpuscular Hemoglobin 30.3 pg (25-34); Mean Corpuscular Volume 84.1 fL (80-100); Mean Platelet Volume 10.6 fL (7.4-10.4); Platelet Count 115 K/uL (130-400); RDW Coefficient of Variation 12.9 % (11.5-14.5); RDW Standard Deviation 39.4 fL (36.4-46.3); Red Blood Count 4.79 M/uL (4.7-6.1); White Blood Count 8.03 K/uL (4.8-10.8)
[2020-04-04 07:19] LABS: Albumin Globulin Ratio 1.4 (0.9-2); Albumin Level 3.8 gm/dl (3.4-5.0); BUN Creatinine Ratio 18.7 (10-20); Bilirubin,Total 0.8 mg/dl (0.2-1); Calcium 8.8 mg/dl (8.5-10.1); Creatinine Clr Calc Pharmacy 103.7 ml/min; Est GFR (African American) 102.2; Est GFR (Non-African American) 88.2; Globulin 2.8 gm/dl (2.5-4.0); Magnesium 1.9 mg/dl (1.8-2.4); Potassium 4.1 mmol/L (3.5-5.1); Total Protein 6.6 gm/dl (6.4-8.2)
--- NOTE | 2020-04-04 08:10 | Billing Data ---
Date of Service April 03, 2020 Coding Level of Care Code 66879 Initial Inpt Care Lvl 3
[2020-04-04] MEDS ORDERED: MAGNESIUM SULFATE / D5W 1 GM/100 ML BAG IV ONE (08:15)
[2020-04-04] MEDS ORDERED: PERFLUTREN LIPID MICROSPHERE (DEFINITY) IV ONE (08:17)
[2020-04-04] MEDS: ACETAMINOPHEN 500 MG TAB PO SCH ×2 (08:49→20:48)
[2020-04-04] MEDS: DOCUSATE SODIUM 100 MG CAP PO SCH ×2 (08:49→20:46)
[2020-04-04] MEDS: CHOLECALCIFEROL 1,000 UNITS 25 MCG TAB PO SCH (08:49)
[2020-04-04] MEDS: AMANTADINE HCL 100 MG CAPSULE PO SCH ×2 (08:50→20:48)
[2020-04-04] MEDS: MAGNESIUM OXIDE 400 MG TAB PO SCH (08:50)
[2020-04-04] MEDS: VITAMIN B COMPLEX TAB PO SCH (08:50)
[2020-04-04] MEDS: VENLAFAXINE HCL XR 150 MG CAPXR PO SCH (08:51)
[2020-04-04] MEDS: GABAPENTIN 800 MG TAB PO SCH ×4 (08:51→20:47)
[2020-04-04] MEDS: BusPIRone 15 MG TAB PO SCH ×2 (08:51→20:45)
[2020-04-04] MEDS: FINASTERIDE 5 MG TAB PO SCH (08:52)
[2020-04-04] MEDS: CALCIUM 600MG + VIT D 400 IU TAB PO SCH (08:52)
[2020-04-04] MEDS: ASPIRIN 81 MG ECTAB PO SCH (08:52)
[2020-04-04] MEDS: INSULIN ASPART 100 UNITS/ML 3 ML PEN SC SCH ×4 (10:51→20:59)
--- NOTE | 2020-04-04 12:29 | XCELERA ---
[id number]
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
--- NOTE | 2020-04-04 14:36 | Electrocardiogram Report ---
Test Reason : Blood Pressure : / mmHG Vent. Rate : 077 BPM Atrial Rate : 077 BPM P-R Int : 330 ms QRS Dur : 090 ms QT Int : 370 ms P-R-T Axes : 043 -27 060 degrees QTc Int : 418 ms Sinus rhythm with 1st degree A-V block Low voltage QRS Incomplete right bundle branch block Borderline ECG When compared with ECG of 03-APR-2020 10:09, No significant change was found Confirmed by Guanako Krishnan ([id number]) on 04/04/2020 2:35:42 PM Referred By: [facility] Confirmed By:Joe Krishnan
--- NOTE | 2020-04-04 15:09 | Family Medicine Progress Note ---
Date of Service April 04, 2020 Assessment & Plan (1) AMS (altered mental status): 79-year-old male was admitted on 03 Apr 2020 via EMS (from [facility]) for confusion and hyponatremia. Altered mental status: Background details are unclear and patient is non- contributory to history. No obvious [employer], pulm, or abdominal infections. No known acute trauma. UA positive for WBC and epi cells. UDS negative. Urine culture with pinpoint growth. Suspect hyponatremia and polypharmacy contr ibuting to AMS. This morning patient was more lucid and conversational. - Will consult neuro to see if they can suggest a way to cut back on or discontinue any of his neuropsych meds. Hyponatremia: Admit sodium 125, since improved to 129 after NS bolus and maintenance IVF. Urine osm 403 and urine sodium 94, suggestive of hypovolemia. Suspect recent decreased PO intake. - Has been on venlafaxine ER 300 daily and trazodone 150 mg q HS, both of which can contribute to hyponatremia. Depending on continued Na levels, may consider stopping or switching to something like fluoxetine 40 mg daily. Hypertension: PMH same. Elevated here but do not suspect HTN emergency. Reportedly on home amlodipine 5 daily, spironolactone 25 BID, and lasix prn. As inpatient, kept amlodipine for now. Has multiple anti-HTN allergies. Considered propranolol as inpatient but developed new 2nd degree block before administered. - On hydralazine as needed for SBP > 180. May consider increasing amlodipine if needed. Monitoring. Second degree Type 1 AV block: Seen on telemetry on afternoon of 19May with HR as low as 30s. Asymptomatic, no noted pauses. See cardiology consult details, did not recommend immediate intervention, though would like to see his rhythm while he is ambulatory. Consulted PT/OT to assist. Longstanding sensory ataxia /diabetic peripheral neuropathy, recent fall and left rib fractures: Holding opiates due to AMS. On scheduled Tylenol. Elevated alk phos: Admit AP 173. 19May cholelithiasis without evidence of cholecystitis on abd u/s. Non-tender abdomen. Remaining LFTs okay. Monitor for now. Splenomegaly: Including a 6.8 cm heterogeneous focus on 19May u/s. May be post- traumatic from prior fall. Recommend following up as outpt Ongoing medical issues: - Hyperlipidemia, ? CHF: Continue home Zocor. 20May TTE noted EF 55-60%, normal LVSF, no significant change since April 2019. Listed to be on lasix 10 mg prn, but will hold this for now. - Iron deficiency anemia: Admit Hb 12.5 (MCV 83), higher on recheck. No evidence of acute bleeding. Suspect anemia of chronic inflammation as well. Monitor. - Diabetes type 2: March 2020 HbA1c 6.1. Continue home ASA. Held home glargine, aspart, and metformin. --- Placed on insulin sliding scale. - Mixed restrictive and obstructive lung disease, chronic hypoxic respiratory failure: Is on 2-3 L NC oxygen at home. Sees Dr. Tomas of pulmonology as outpatient. Continue home albuterol prn. - Chronic kidney disease: Admit creatinine 0.7. - Mild tardive dyskinesia: Thought to be related to Abilify. Follows with psychiatry as an outpatient. On last admit, neuro recommended trial of Cogentin. --- Continue home amantadine, abilify, gabapentin. - Alcoholic and compensated hepatitis C cirrhosis, thrombocytopenia: Alcohol cessation in 2007. Previously followed by [facility]. Admit platelets 116. Normal LFTs. Seen by hematology in 2018, noted thrombocytopenia likely related to Hep C (s/p blood transfusion). - Opiate-associated constipation: Tapentadol BID was stopped on last discharge and swapped with new oxycodone. --- Held home bisacodyl and miralax. Continue home docusate. - Obstructive sleep apnea: Reportedly wears BiPAP intermittently. Ordered for inpatient. - Microscopic hematuria: On prior discharge, plan was for outpatient cystoscopy with urology. No UA RBCs seen on this admit. - BPH: Continue home finasteride and silodosin. - Depression, anxiety: Continue home buspirone. Continuing venlafaxine and trazodone for now. Code status: Full code. Diet: DM2. DVT prophy: Lovenox 30. PT/OT: Ordered. Disbo: Admitted to med surg tele. Says daughter (Niyah [phone]) lives in [place]. Was transferred from [facility] on admit. Case management onboard. Patient likely d/c back to [facility] eventually. (2) Hyponatremia: (3) Hypertension: (4) Elevated alkaline phosphatase level: (5) Cholelithiasis: (6) Iron deficiency anemia: (7) Hyperlipidemia: (8) Diabetes mellitus: (9) Diabetic peripheral neuropathy: (10) Mixed restrictive and obstructive lung disease: (11) Chronic kidney disease, stage II (mild): (12) CHF (congestive heart failure): (13) Tardive dyskinesia: (14) Cirrhosis, alcoholic: (15) Compensated HCV cirrhosis: (16) Constipation due to pain medication: (17) TERI (obstructive sleep apnea): (18) Benign prostatic hyperplasia with urinary obstruction: (19) Anxiety: (20) Depression: (21) Second degree atrioventricular block, Mobitz (type) I: Admission and Anticipated Discharge Date Admission Date: April 03, 2020 Supervising Physician Co-Signing Physician Notes I personally examined the patient and verified all massey points of history and exam, discussed case, and agree with decision making with Dr. Heart with the following additions/exceptions: Much improved today mentally. Still not completely oriented, but focus and attention are much improved. Denies any chest pain, shortness of breath, or abdominal pain. No nausea. He is eating and drinking as he says "too much." I discussed the case with cardiology Vitals reviewed Obese, NAD, alert awake oriented times person and year, but not place, month or date Anicteric sclerae, consistently thrusting his tongue out of his mouth Regular rhythm and rate no murmur Clear to auscultation bilaterally, no wheezes crackles or rhonchi Abdomen positive bowel sounds soft, nontender nondistended Extremities trace pitting edema in the left leg to the mid tibia compression stockings in place Skin no rashes Neuro-able to name days of the week backwards without any problems Laboratory values reviewed 79-year-old male here with history as above with altered mental status and hyponatremia, who also developed a Mobitz type I heart block that was asymptomatic with rates into the 30s and 40s after admission which is intermittently persistent Received normal saline and hyponatremia is improving as is his mental status- most likely from altered mental status from hyponatremia Also with questionable abnormal UA and urine culture with pinpoint growth-we will follow but hold off on antibiotics for now Consult cardiology for second-degree heart block appreciated-we will get him up and walking and see what his heart rate does Subjective Found patient awake this morning, resting very comfortably. He was a bit more conversational but did not volunteer any information. Overall, he said he felt well when asked when he was going home. He then said he was not sure why he is here at [facility] or how he got here. He knows his name, date of now, location, year, but no particular further details. He denies any pain or discomfort. When he began to talk about [facility], he says he recalls breaking ribs but does not remember how. When asked if he has any family in the area, he says he has a daughter who lives in [place] who he spoke with on the phone. Spoke with patient again this afternoon. He was even more lucid at that time, able to name the days of the week backwards. However, he still was unclear where he physically is or why he is here. No particular complaints raised. Review of Systems Review of Systems: Per HPI as above. Physical Exam Physical Exam: GENERAL: Awake, alert, now oriented to person + place + year (but not why in hospital), very comfortable-appearing, in NAD. HENT: Normocephalic, atraumatic. He is missing his lower dentures. CARDIAC: +S1S2 RRR, no murmurs. RESPIRATORY: Clear to auscultation. No wheezes or rales. Normal respiratory effort. Presently on room air. GI: +BS, soft, non-distended. No tenderness to palpation. No rebound or guarding. EXTREMITIES: No pedal edema or calf tenderness. He is wearing bilateral compression stockings with minimal underlying edema. NEURO: Exam is limited by patient's AMS. Is following commands, moving all extremities. Far more conversational today. Results & Data ([facility]) Vital Signs (Past 12 Hours) Vital Signs Temp Pulse Pulse Resp BP Pulse Ox 04/04/20 11:45 36.8 C 72 20 154/72 H 98 04/04/20 07:22 36.8 C 74 18 125/47 L 91 04/04/20 03:40 36.5 C 77 19 159/71 H 95 04/04/20 03:30 79 16 94 Laboratory Results 04/04/20 04/04/20 04/04/20 Range/Units 11:43 07:37 06:04 WBC (4.8-10.8) K/uL RBC (4.7-6.1) M/uL Hgb (14.0-18.0) g/dL Hct (42-52) % MCV (80-100) fL MCH (25-34) pg MCHC (32-36) g/dL RDW Std Deviation (36.4-46.3) fL RDW Coeff of Ja (11.5-14.5) % Plt Count (130-400) K/uL MPV (7.4-10.4) fL Sodium 129 L (136-145) mmol/L Potassium 4.1 (3.5-5.1) mmol/L Chloride 95 L (98-107) mmol/L Carbon Dioxide 26 (21-32) mmol/L Anion Gap 8.0 (3-11) BUN 14 (7-18) mg/dl Creatinine 0.73 (0.6-1.4) mg/dl Est Cr Clr Drug Dosing 103.7 ml/min Est GFR ( Amer) 102.2 Est GFR (Non-Af Amer) 88.2 BUN/Creatinine Ratio 18.7 (10-20) Glucose 82 (70-99) mg/dl POC Glucose 151 H 91 (70-99) mg/dl Calcium 8.8 (8.5-10.1) mg/dl Magnesium 1.9 (1.8-2.4) mg/dl Total Bilirubin 0.8 (0.2-1) mg/dl Direct Bilirubin (0-0.2) mg/dl AST 30 (15-37) U/L ALT 55 (12-78) U/L Alkaline Phosphatase 191 H (45-117) U/L Total Protein 6.6 (6.4-8.2) gm/dl Albumin 3.8 (3.4-5.0) gm/dl Globulin 2.8 (2.5-4.0) gm/dl Albumin/Globulin Ratio 1.4 (0.9-2) Specimen Hemolysis Urine Color Urine Appearance (Clear) Urine pH (4.5-7.5) Ur Specific [place] (1.000-1.030) Urine Protein (Negative) Urine Glucose (UA) (Negative) Urine Ketones (Negative) Urine Blood (Negative) Urine Nitrite (Negative) Urine Bilirubin (Negative) Urine Urobilinogen (Negative) Ur Leukocyte Esterase (Negative) Urine WBC (Auto) (0-5) /hpf Urine RBC (Auto) (0-4) /hpf U Hyaline Cast (Auto) (0-5) /lpf U Epithel Cells (Auto) (0-5) /lpf Urine Bacteria (Auto) (Negative) Urine Yeast Urine Osmolality (500-800) mOsm/kg Ur Random Sodium mmol/L Urine Opiates Screen (Neg) Ur Methadone, Qual (Neg) Urine Barbiturates (Neg) Ur Phencyclidine (PCP) (Neg) U Amphetamin/Meth Scrn (Neg) MDMA (Ecstasy) Screen (Neg) U Benzodiazepines Scrn (Neg) Ur Cocaine Metabolite (Neg) U Marijuana (THC) Screen (Neg) 04/04/20 04/03/20 04/03/20 Range/Units 06:04 22:00 22:00 WBC 8.03 (4.8-10.8) K/uL RBC 4.79 (4.7-6.1) M/uL Hgb 14.5 (14.0-18.0) g/dL Hct 40.3 L (42-52) % MCV 84.1 (80-100) fL MCH 30.3 (25-34) pg MCHC 36.0 (32-36) g/dL RDW Std Deviation 39.4 (36.4-46.3) fL RDW Coeff of Ja 12.9 (11.5-14.5) % Plt Count 115 L (130-400) K/uL MPV 10.6 H (7.4-10.4) fL Sodium (136-145) mmol/L Potassium (3.5-5.1) mmol/L Chloride (98-107) mmol/L Carbon Dioxide (21-32) mmol/L Anion Gap (3-11) BUN (7-18) mg/dl Creatinine (0.6-1.4) mg/dl Est Cr Clr Drug Dosing ml/min Est GFR ( Amer) Est GFR (Non-Af Amer) BUN/Creatinine Ratio (10-20) Glucose (70-99) mg/dl POC Glucose (70-99) mg/dl Calcium (8.5-10.1) mg/dl Magnesium (1.8-2.4) mg/dl Total Bilirubin (0.2-1) mg/dl Direct Bilirubin (0-0.2) mg/dl AST (15-37) U/L ALT (12-78) U/L Alkaline Phosphatase (45-117) U/L Total Protein (6.4-8.2) gm/dl Albumin (3.4-5.0) gm/dl Globulin (2.5-4.0) gm/dl Albumin/Globulin Ratio (0.9-2) Specimen Hemolysis Urine Color Yellow Urine Appearance Cloudy A (Clear) Urine pH 7.0 (4.5-7.5) Ur Specific [place] 1.015 (1.000-1.030) Urine Protein Negative (Negative) Urine Glucose (UA) Negative (Negative) Urine Ketones Negative (Negative) Urine Blood Negative (Negative) Urine Nitrite Negative (Negative) Urine Bilirubin Negative (Negative) Urine Urobilinogen Negative (Negative) Ur Leukocyte Esterase Negative (Negative) Urine WBC (Auto) 10-30 H (0-5) /hpf Urine RBC (Auto) 0-4 (0-4) /hpf U Hyaline Cast (Auto) 0 (0-5) /lpf U Epithel Cells (Auto) 5-10 H (0-5) /lpf Urine Bacteria (Auto) 4+ H (Negative) Urine Yeast Not Reportable Urine Osmolality (500-800) mOsm/kg Ur Random Sodium mmol/L Urine Opiates Screen Neg (Neg) Ur Methadone, Qual Neg (Neg) Urine Barbiturates Neg (Neg) Ur Phencyclidine (PCP) Neg (Neg) U Amphetamin/Meth Scrn Neg (Neg) MDMA (Ecstasy) Screen Neg (Neg) U Benzodiazepines Scrn Neg (Neg) Ur Cocaine Metabolite Neg (Neg) U Marijuana (THC) Screen Neg (Neg) 04/03/20 04/03/20 04/03/20 Range/Units 22:00 22:00 20:06 WBC (4.8-10.8) K/uL RBC (4.7-6.1) M/uL Hgb (14.0-18.0) g/dL Hct (42-52) % MCV (80-100) fL MCH (25-34) pg MCHC (32-36) g/dL RDW Std Deviation (36.4-46.3) fL RDW Coeff of Ja (11.5-14.5) % Plt Count (130-400) K/uL MPV (7.4-10.4) fL Sodium (136-145) mmol/L Potassium (3.5-5.1) mmol/L Chloride (98-107) mmol/L Carbon Dioxide (21-32) mmol/L Anion Gap (3-11) BUN (7-18) mg/dl Creatinine (0.6-1.4) mg/dl Est Cr Clr Drug Dosing ml/min Est GFR ( Amer) Est GFR (Non-Af Amer) BUN/Creatinine Ratio (10-20) Glucose (70-99) mg/dl POC Glucose 162 H (70-99) mg/dl Calcium (8.5-10.1) mg/dl Magnesium (1.8-2.4) mg/dl Total Bilirubin (0.2-1) mg/dl Direct Bilirubin (0-0.2) mg/dl AST (15-37) U/L ALT (12-78) U/L Alkaline Phosphatase (45-117) U/L Total Protein (6.4-8.2) gm/dl Albumin (3.4-5.0) gm/dl Globulin (2.5-4.0) gm/dl Albumin/Globulin Ratio (0.9-2) Specimen Hemolysis Urine Color Urine Appearance (Clear) Urine pH (4.5-7.5) Ur Specific [place] (1.000-1.030) Urine Protein (Negative) Urine Glucose (UA) (Negative) Urine Ketones (Negative) Urine Blood (Negative) Urine Nitrite (Negative) Urine Bilirubin (Negative) Urine Urobilinogen (Negative) Ur Leukocyte Esterase (Negative) Urine WBC (Auto) (0-5) /hpf Urine RBC (Auto) (0-4) /hpf U Hyaline Cast (Auto) (0-5) /lpf U Epithel Cells (Auto) (0-5) /lpf Urine Bacteria (Auto) (Negative) Urine Yeast Urine Osmolality 403 L (500-800) mOsm/kg Ur Random Sodium 94 mmol/L Urine Opiates Screen (Neg) Ur Methadone, Qual (Neg) Urine Barbiturates (Neg) Ur Phencyclidine (PCP) (Neg) U Amphetamin/Meth Scrn (Neg) MDMA (Ecstasy) Screen (Neg) U Benzodiazepines Scrn (Neg) Ur Cocaine Metabolite (Neg) U Marijuana (THC) Screen (Neg) 04/03/20 04/03/20 Range/Units 18:09 16:39 WBC (4.8-10.8) K/uL RBC (4.7-6.1) M/uL Hgb (14.0-18.0) g/dL Hct (42-52) % MCV (80-100) fL MCH (25-34) pg MCHC (32-36) g/dL RDW Std Deviation (36.4-46.3) fL RDW Coeff of Ja (11.5-14.5) % Plt Count (130-400) K/uL MPV (7.4-10.4) fL Sodium 127 L (136-145) mmol/L Potassium 4.6 (3.5-5.1) mmol/L Chloride 93 L (98-107) mmol/L Carbon Dioxide 27 (21-32) mmol/L Anion Gap 7.0 (3-11) BUN 15 (7-18) mg/dl Creatinine 0.82 (0.6-1.4) mg/dl Est Cr Clr Drug Dosing 92.7 ml/min Est GFR ( Amer) 97.5 Est GFR (Non-Af Amer) 84.1 BUN/Creatinine Ratio 17.9 (10-20) Glucose 124 H (70-99) mg/dl POC Glucose 102 H (70-99) mg/dl Calcium 8.8 (8.5-10.1) mg/dl Magnesium 1.8 (1.8-2.4) mg/dl Total Bilirubin 0.7 (0.2-1) mg/dl Direct Bilirubin 0.3 H (0-0.2) mg/dl AST (15-37) U/L ALT (12-78) U/L Alkaline Phosphatase (45-117) U/L Total Protein (6.4-8.2) gm/dl Albumin (3.4-5.0) gm/dl Globulin (2.5-4.0) gm/dl Albumin/Globulin Ratio (0.9-2) Specimen Hemolysis Urine Color Urine Appearance (Clear) Urine pH (4.5-7.5) Ur Specific [place] (1.000-1.030) Urine Protein (Negative) Urine Glucose (UA) (Negative) Urine Ketones (Negative) Urine Blood (Negative) Urine Nitrite (Negative) Urine Bilirubin (Negative) Urine Urobilinogen (Negative) Ur Leukocyte Esterase (Negative) Urine WBC (Auto) (0-5) /hpf Urine RBC (Auto) (0-4) /hpf U Hyaline Cast (Auto) (0-5) /lpf U Epithel Cells (Auto) (0-5) /lpf Urine Bacteria (Auto) (Negative) Urine Yeast Urine Osmolality (500-800) mOsm/kg Ur Random Sodium mmol/L Urine Opiates Screen (Neg) Ur Methadone, Qual (Neg) Urine Barbiturates (Neg) Ur Phencyclidine (PCP) (Neg) U Amphetamin/Meth Scrn (Neg) MDMA (Ecstasy) Screen (Neg) U Benzodiazepines Scrn (Neg) Ur Cocaine Metabolite (Neg) U Marijuana (THC) Screen (Neg) Medications Administered Current Inpatient Medications Acetaminophen (Tylenol) 1,000 mg PO BID ANTHONY Stop: 05/03/20 20:59 Last Admin: 04/04/20 08:49 Dose: 1,000 mg Documented by: Albuterol (Ventolin Hfa) 2 puffs INH Q4H PRN PRN Reason: Shortness Of Breath Or Wheezing Stop: 05/03/20 16:23 Amantadine HCl (Symmetrel) 100 mg PO BID ANTHONY Stop: 05/03/20 20:59 Last Admin: 04/04/20 08:50 Dose: 100 mg Documented by: Amlodipine Besylate (Norvasc) 5 mg PO PM ANTHONY Stop: 05/03/20 20:59 Last Admin: 04/03/20 20:34 Dose: 5 mg Documented by: Aripiprazole (Abilify) 10 mg PO HS ANTHONY Stop: 05/03/20 20:59 Last Admin: 04/03/20 20:31 Dose: 10 mg Documented by: Aspirin (Ecotrin Ectab) 81 mg PO QAM ANTHONY Stop: 05/04/20 08:59 Last Admin: 04/04/20 08:52 Dose: 81 mg Documented by: Buspirone HCl (Buspar) 30 mg PO BID ANTHONY Stop: 05/03/20 20:59 Last Admin: 04/04/20 08:51 Dose: 30 mg Documented by: Dextrose (Dextrose 50%) 25 - 50 ml IV UD PRN; Protocol PRN Reason: Hypoglycemia Protocol Stop: 05/03/20 16:23 Docusate Sodium (Colace) 100 mg PO BID [facility] Stop: 05/03/20 20:59 Last Admin: 04/04/20 08:49 Dose: 100 mg Documented by: Enoxaparin Sodium (Lovenox) 30 mg SQ Q24H [facility] Stop: 05/03/20 16:23 Last Admin: 04/03/20 20:32 Dose: 30 mg Documented by: Finasteride (Proscar) 5 mg PO QAM [facility] Stop: 05/04/20 08:59 Last Admin: 04/04/20 08:52 Dose: 5 mg Documented by: Fluticasone Propionate (Flonase) 1 sprays NA DAILY PRN PRN Reason: Nasal Congestion Stop: 05/03/20 16:23 Gabapentin (Neurontin) 800 mg PO QID [facility] Stop: 05/03/20 16:59 Last Admin: 04/04/20 13:11 Dose: 800 mg Documented by: Glucagon (Glucagen) 1 mg SQ UD PRN; Protocol PRN Reason: Hypoglycemia Protocol Stop: 05/03/20 16:23 Glucose (Dex4 Glucose) 4 - 8 tabs PO UD PRN; Protocol PRN Reason: Hypoglycemia Protocol Stop: 05/03/20 16:23 Glucose (Glucose 40%) 15 - 30 gm PO UD PRN; Protocol PRN Reason: Hypoglycemia Protocol Stop: 05/03/20 16:23 Hydralazine HCl (Hydralazine Hcl) 10 mg IV Q8H PRN PRN Reason: Hypertension Stop: 05/03/20 16:23 Insulin Aspart (Novolog Flexpen) 0 units SC ACHS [facility] Stop: 05/03/20 16:29 Last Admin: 04/04/20 13:11 Dose: 2 units Documented by: Magnesium Oxide (Mag-Ox) 400 mg PO QAM [facility] Stop: 05/04/20 08:59 Last Admin: 04/04/20 08:50 Dose: 400 mg Documented by: Miscellaneous (Order Awaiting Action) 1 ea N/A QS [facility] Stop: 05/04/20 00:00 Last Admin: 04/04/20 08:47 Dose: Not Given Documented by: Miscellaneous (Carbohydrates For Hypoglycemia) 15 - 30 gm PO UD PRN PRN Reason: Hypoglycemia Protocol Stop: 05/03/20 16:23 Multivitamins/Minerals (Caltrate Plus) 1 tab PO QAM [facility] Stop: 05/04/20 08:59 Last Admin: 04/04/20 08:52 Dose: 1 tab Documented by: Simvastatin (Zocor) 40 mg PO QPM [facility] Stop: 05/03/20 20:59 Last Admin: 04/03/20 20:36 Dose: 40 mg Documented by: Trazodone HCl (Desyrel) 150 mg PO [facility] Stop: 05/03/20 20:59 Last Admin: 04/03/20 20:33 Dose: 150 mg Documented by: Venlafaxine HCl (Effexor Extended Release) [facility] Stop: 05/04/20 08:59 Last Admin: 04/04/20 08:51 Dose: 300 mg Documented by: Vitamin B Complex (Vitamin B Complex) 1 [facility] Stop: 05/04/20 08:59 Last Admin: 04/04/20 08:50 Dose: 1 tab Documented by: Vitamin D (Vitamin D3) 2,000 units [facility] Stop: 05/04/20 08:59 Last Admin: 04/04/20 08:49 Dose: 2,000 units Documented by: Resident Activity Tracking Resident Involvement: Resident Care Provided Care Provided: Adult Hospital Medicine (1) CHF (congestive heart failure) Heart failure chronicity: unspecified Heart failure type: unspecified Qualified Code(s): I50.9 - Heart failure, unspecified (2) AMS (altered mental status) Altered mental status type: somnolence Qualified Code(s): R40.0 - Somnolence
--- NOTE | 2020-04-04 16:51 | Billing Data ---
Date of Service April 04, 2020 Coding Level of Care Code 51104 Subseq Hosp Care Lvl 3
[2020-04-04] MEDS: ENOXAPARIN INJ 30 MG/0.3 ML SYR SQ SCH (20:45)
[2020-04-04] MEDS: ARIPiprazole 10 MG TAB PO SCH (20:46)
[2020-04-04] MEDS: AMLODIPINE BESYLATE 5 MG TAB PO SCH (20:47)
[2020-04-04] MEDS: TRAZODONE HCL 50 MG TAB PO SCH (20:47)
[2020-04-04] MEDS: SIMVASTATIN 40 MG TAB PO SCH (20:49)
[2020-04-05] MEDS: ASPIRIN 81 MG ECTAB PO SCH (08:48)
[2020-04-05] MEDS: CHOLECALCIFEROL 1,000 UNITS 25 MCG TAB PO SCH (08:48)
[2020-04-05] MEDS: FINASTERIDE 5 MG TAB PO SCH (08:48)
[2020-04-05] MEDS: ACETAMINOPHEN 500 MG TAB PO SCH ×2 (08:50→20:26)
[2020-04-05] MEDS: CALCIUM 600MG + VIT D 400 IU TAB PO SCH (08:50)
[2020-04-05] MEDS: MAGNESIUM OXIDE 400 MG TAB PO SCH (08:51)
[2020-04-05] MEDS: VENLAFAXINE HCL XR 150 MG CAPXR PO SCH (08:51)
[2020-04-05] MEDS: VITAMIN B COMPLEX TAB PO SCH (08:51)
[2020-04-05] MEDS: GABAPENTIN 800 MG TAB PO SCH ×3 (08:52→20:26)
[2020-04-05] MEDS: BusPIRone 15 MG TAB PO SCH ×2 (08:52→20:25)
[2020-04-05] MEDS: DOCUSATE SODIUM 100 MG CAP PO SCH ×2 (08:52→20:25)
[2020-04-05] MEDS: AMANTADINE HCL 100 MG CAPSULE PO SCH (08:52)
[2020-04-05 08:58] LABS: Albumin Level 3.7 gm/dl (3.4-5.0); BUN Creatinine Ratio 19.7 (10-20); Calcium 8.8 mg/dl (8.5-10.1); Creatinine Clr Calc Pharmacy 111.4 ml/min; Est GFR (African American) 104.6; Est GFR (Non-African American) 90.3; Potassium 3.7 mmol/L (3.5-5.1)
[2020-04-05 09:00] LABS: Albumin Globulin Ratio 1.4 (0.9-2); Bilirubin,Total 0.6 mg/dl (0.2-1); Globulin 2.7 gm/dl (2.5-4.0); Total Protein 6.4 gm/dl (6.4-8.2)
[2020-04-05] MEDS: INSULIN ASPART 100 UNITS/ML 3 ML PEN SC SCH ×4 (09:43→20:36)
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
[2020-04-05] MEDS ORDERED: GADOBUTROL 65ML VIAL IV PRN (12:38)
--- NOTE | 2020-04-05 12:53 | Magnetic Resonance Report ---
MR brain wo/w con CLINICAL HISTORY: 79 years-old Male presenting with fall a few weeks ago, change in mental status, po ssible normal pressure hydrocephalus. TECHNIQUE: Multisequence, multiplanar MR imaging of the brain was performed before and after the admi nistration of intravenous contrast. IV contrast: 10 mL of Gadavist. COMPARISON: 09/13/[address] from 10/23/2019. FINDINGS: Localizer images: Unremarkable. Bone marrow signal intensity within the calvarium within normal limits. Normal midline sagittal structures. Proportional ventricular and sulcal prominence, likely age-relate d parenchymal volume loss. Layering T2 hypointense debris in the occipital horns of the lateral ventr icles. This does not demonstrate susceptibility artifact. This may mildly restricted diffusion. No ma ss effect or midline shift. Punctate diffusion hyperintense focus in the high right frontal lobe whit e matter near the vertex with low ADC signal consistent with restricted diffusion. This is favored to represent acute lacunar infarct rather than artifact. Periventricular and subcortical white matter T 2/FLAIR hyperintensity, nonspecific but likely indicative of chronic small vessel ischemic change. No rmal callosal angle. No abnormal parenchymal enhancement. No pachymeningeal or leptomeningeal enhance ment. No extra-axial fluid collection. T2 skull base flow voids preserved. Bilateral umkumiut lenses are abse nt. IMPRESSION: 1. Layering debris in the occipital horns of the lateral ventricles concerning for ventriculitis, po ssibly infectious. Intraventricular hemorrhage is not favored given the absence of susceptibility art ifact in the region of layering debris. 2. Findings suspicious for an acute lacunar infarct in the high right frontal lobe white matter. 3. Chronic small vessel ischemic change. 4. No evidence of normal pressure hydrocephalus. The report will be called/faxed according to standard departmental protocol. ACT 112: Negative or not required by law. Electronically signed by: David Gonzalez M.D. 04/05/2020 12:51 PM
[2020-04-05] MEDS: SODIUM CHLORIDE 1 GM TABLET PO SCH ×2 (13:48→20:28)
[2020-04-05] MEDS ORDERED: VANCOMYCIN CONSULT ACTIVE PRN (16:01)
[2020-04-05] MEDS: CEFEPIME 2,000 MG in SYRINGE 7.5 ML IV SCH ×2 (16:45→23:42)
--- NOTE | 2020-04-05 16:49 | Pharmacy Report ---
Pharmacy Abx Initial Consult - Date of Service April 05, 2020 - Pharmacy Dosing Scope Date of Consult: 04/05/20 Consultation requested by: Dr. Heart Pharmacy is consulted to initiate VANCOMYCIN IV dosing therapy, order appropriate labs and adjust drug dose/frequency. - Subjective The patient is a 79 year old M admitted on 04/03/20 15:13. - Objective Height: 6 ft 2 in Weight: 103.6 kg Vital Signs (Past 12hrs): Vital Signs Temp Pulse Pulse Resp BP BP Pulse Ox 04/05/20 15:10 36.9 C 78 18 152/72 H 98 04/05/20 14:20 78 04/05/20 11:17 36.6 C 85 18 169/70 H 97 04/05/20 07:26 36.8 C 79 18 170/77 H 97 Lab Results (24hrs): Laboratory Tests (24 Hours) 04/05/20 07:53 Creatinine 0.69 Est Cr Clr Drug Dosing 111.4 - Assessment & Plan Assessment 79 year old M ordered empiric VANCOMYCIN + CEFEPIME Plan Vancomycin IV * Estimated PK Parameters: Vd 0.7 L/kg, Jacoby 0.068 hr-1, t1/2 ~10 hr ( based on CrCl of 77 ml/min (111.4*0.69 for SCr < 0.8) * Loading dose: 2500mg (25 mg/kg) * Maintenance dose: 1500mg IV (15 mg/kg) every 12 hours * Goal trough level : 15 to 20 mcg/mL * Will check a trough level prior to the 3rd maintenance dose IF vanc is continued past 48 hours. Pharmacy will continue to follow and will adjust dose/frequency as necessary. Thank you.
[2020-04-05] MEDS ORDERED: VANCOMYCIN HCL 2,500 MG in SODIUM CHLORIDE 0.9% 500 ML IV ONE (17:00)
--- NOTE | 2020-04-05 17:50 | Family Medicine Progress Note ---
Date of Service April 05, 2020 Assessment & Plan (1) AMS (altered mental status): 79-year-old male was admitted on 03 Apr 2020 via EMS (from [facility] for confusion and hyponatremia. Altered mental status, possible metabolic encephalopathy, right frontal lobe lacunar infarct: Background details are unclear. Suspect this is multifactorial in origin to include hyponatremia, polypharmacy, recent CVA, and/or [employer] infectious process. - Consulted neurology (see note). Noted mild subcortical dementia. Reduced his gabapentin dosing. Stopped amantadine. May benefit from future reducing Effexor or trazodone doses. May need to consult psychiatry. - Neuro ordered MRI brain which was read as layering debris concerning for ventriculitis/possibly infectious. Intraventricular hemorrhages not favored. Furthermore findings suspicious of acute lunar infarct in the right frontal lobe . No evidence of NPH. - Spoke on the phone with neurosurgery (Dr. Hamm) at [facility]. Relayed recent medical history, current physical exam, and MRI findings. Based on this description, he does not believe this is ventriculitis given his lack of other infectious symptoms and no contrast enhancement. It is more likely he may have some blood in the ventricles due to his recent fall. Even if it were ventriculitis there is no neurosurgical intervention for this. He did agree with performing an LP and starting empiric antibiotics until results available. - Spoke on the phone with patients daughter twice. First was to update her on overall status. Second call was to discuss the results of the MRI, neurosurgery discussion, and plan for lumbar puncture. We will hold his Lovenox and aspirin. Will start empiric vancomycin and cefepime as well. Plan to pursue fluoroscopy guided LP in the morning (she provided verbal consent at 3:49 pm). Hyponatremia: PMH same since perhaps January 2019. Admit sodium 125, improved then worsened. Urine osm 403 and urine sodium 94, suggestive of hypovolemia. Suspect recent decreased PO intake. - Will begin fluid restriction and salt tabs 1 gram BID. - Has been on venlafaxine ER 300 daily and trazodone 150 mg q HS, both of which can contribute to hyponatremia. Depending on continued Na levels, may consider stopping or switching to something like fluoxetine 40 mg daily. Urinary incontinence: Has ongoing urinary incontinence. Daughter says this is a relatively new finding. UA positive for WBC and epi cells. UDS negative. Urine culture with pinpoint growth. Hypertension: PMH same. Reportedly on home amlodipine 5 daily, spironolactone 25 BID, and lasix prn. As inpatient, kept amlodipine for now. Has multiple anti-HTN allergies. Considered propranolol as inpatient but developed new 2nd degree block. - On hydralazine as needed for SBP > 180. May consider increasing amlodipine if needed. Monitoring. Second degree Type 1 AV block: Seen on telemetry on afternoon of 19May with HR as low as 30s. Asymptomatic, no noted pauses. See cardiology consult details, did not recommend immediate intervention, though would like to see his rhythm while he is ambulatory. Longstanding sensory ataxia /diabetic peripheral neuropathy, recent fall and left rib fractures: Holding opiates due to AMS. On scheduled Tylenol. Elevated alk phos: Admit AP 173, stable around 190. 19May cholelithiasis without evidence of cholecystitis on abd u/s. Non-tender abdomen. Remaining LFTs okay. Monitor for now. Splenomegaly: Including a 6.8 cm heterogeneous focus on 19May u/s. May be post- traumatic from prior fall. Ongoing medical issues: - Hyperlipidemia, ? CHF: Continue home Zocor. 20May TTE noted EF 55-60%, normal LVSF, no significant change since April 2019. Listed to be on lasix 10 mg prn, but will hold this for now. - Iron deficiency anemia: Admit Hb 12.5 (MCV 83), higher on recheck. No evidence of acute bleeding. Suspect anemia of chronic inflammation as well. Monitor. - Diabetes type 2: March 2020 HbA1c 6.1. Continue home ASA. Held home glargine, aspart, and metformin. --- Placed on insulin sliding scale. - Mixed restrictive and obstructive lung disease, chronic hypoxic respiratory failure: Is on 2-3 L NC oxygen at home. Sees Dr. Tomas of pulmonology as outpatient. Continue home albuterol prn. - Chronic kidney disease: Admit creatinine 0.7. - Mild tardive dyskinesia: Thought to be related to Abilify. Follows with psychiatry as an outpatient. On last admit, neuro recommended trial of Cogentin. --- Continue home abilify. --- Per neurology, his home gabapentin dosing was decreased from QID to TID and his home amantadine was discontinued. - Alcoholic and compensated hepatitis C cirrhosis, thrombocytopenia: Alcohol cessation in 2007. Previously followed by [facility]. Admit platelets 116. Normal LFTs. Seen by hematology in 2018, noted thrombocytopenia likely related to Hep C (s/p blood transfusion). - Opiate-associated constipation: Tapentadol BID was stopped on last discharge and swapped with new oxycodone. --- Held home bisacodyl and miralax. Continue home docusate. - Obstructive sleep apnea: Reportedly wears BiPAP intermittently. Ordered for inpatient. - Microscopic hematuria: On prior discharge, plan was for outpatient cystoscopy with urology. No UA RBCs seen on this admit. - BPH: Continue home finasteride and silodosin. - Depression, anxiety: Continue home buspirone. Continuing venlafaxine and trazodone for now. Code status: Full code. Diet: DM2. Fluid restrict to 2000 mL/day. DVT prophy: Lovenox 30. PT/OT: PT noted he could follow 75% of commands. Stands with maximum assistance. Leans to the left when standing. Disbo: Admitted to med surg tele. Daughter is Niyah ([phone]), lives in [place]. Case management onboard. Patient likely back to [facility] on hospital discharge. Ordered COVID testing for this (not due to symptoms). (2) Hyponatremia: (3) Hypertension: (4) Elevated alkaline phosphatase level: (5) Cholelithiasis: (6) Iron deficiency anemia: (7) Hyperlipidemia: (8) Diabetes mellitus: (9) Diabetic peripheral neuropathy: (10) Mixed restrictive and obstructive lung disease: (11) Chronic kidney disease, stage II (mild): (12) CHF (congestive heart failure): (13) Tardive dyskinesia: (14) Cirrhosis, alcoholic: (15) Compensated HCV cirrhosis: (16) Constipation due to pain medication: (17) TERI (obstructive sleep apnea): (18) Benign prostatic hyperplasia with urinary obstruction: (19) Anxiety: (20) Depression: (21) Second degree atrioventricular block, Mobitz (type) I: (22) Metabolic encephalopathy: (23) Right-sided lacunar infarction: Admission and Anticipated Discharge Date Admission Date: April 03, 2020 Supervising Physician Co-Signing Physician Notes I personally examined the patient and verified all massey points of history and exam, discussed case, and agree with decision making with Dr. Heart with the following additions/exceptions: Patient about the same today when I saw him. He is awake and alert and oriented to person and year but not place. He had no complaints, but still seems conf used at times and is not very conversational. Discussed the case with neurology. In light of MRI findings, Dr. Heart called down and spoke with the on-call neurosurgeon at [facility]. Vitals reviewed, telemetry with occasional Mobitz type I second-degree heart block and sinus rhythm with first-degree heart block, rates were in the 80s to 90s when he got up and walked with physical therapy Obese, NAD, alert awake oriented times person and year, but not place, month or date Anicteric sclerae, consistently thrusting his tongue out of his mouth Regular rhythm and rate no murmur Clear to auscultation bilaterally, no wheezes crackles or rhonchi Abdomen positive bowel sounds soft, nontender nondistended Extremities trace pitting edema in the left leg to the mid tibia compression stockings in place Skin no rashes Neuro-moving all extremities, still confused, pupils equally round and reactive to light Laboratory values reviewed, MRI images personally reviewed by me 79-year-old male here with history as above with altered mental status and hyponatremia, who also developed a Mobitz type I heart block that was asymptomatic with rates into the 30s and 40s after admission which is intermitt ently persistent Initially thought that altered mental status could be from hyponatremia which also is likely contributing, however with abnormal findings on brain MRI-suspect old bleed from his fall from several weeks ago, versus ventriculitis which seems less likely especially in that he has no fever or nuchal rigidity or signs of meningitis. Nonetheless, will obtain LP, hold aspirin and Lovenox, and treat empirically with IV antibiotics as above Also with questionable abnormal UA and urine culture with pinpoint growth- culture now with Streptococcus species which may end up being enterococcus-he is now on vancomycin as above which should cover for this Consult cardiology for second-degree heart block appreciated-not concerning unless he does not appropriately increase his heart rate with ambulation. However his heart rate did increase with ambulation today so this should be fine. For acute lacunar infarct seen on MRI today, continue aspirin and statin, blood pressure control, will discuss further with neurology, needs continued cardiac monitoring Subjective Early this morning found patient standing at the side of the bed with physical therapy. When I went to check on him about 15 minutes later he was sleeping soundly. Initially he opened his eyes to voice, said he was okay, but then immediately went back to sleep on any further questioning or exam. Spoke with patient's daughter on the phone earlier this afternoon. Providing update in his care. She says that his current reported mental status has been a great deterioration [facility] She notes recent falls and shuffling gait. He has been followed by new psychiatry provider recent days but she is not sure of the details. She notes he has a history of BPH but any overt urinary incontinence would be new. On recheck this afternoon, patient was about the same as yesterday, still answering questions slowly but confused about overall status. Spoke with patients daughter a second time to update her on the results of the MRI and to obtain verbal consent for an LP. Review of Systems Review of Systems: Per HPI as above. Physical Exam Physical Exam: GENERAL: Awake, alert, now oriented to person + place + year (still not why in hospital), very comfortable-appearing, in NAD. HENT: Normocephalic, atraumatic. He is missing his lower dentures. CARDIAC: +S1S2 RRR, no murmurs. RESPIRATORY: Clear to auscultation. No wheezes or rales. Normal respiratory effort. Presently on room air. GI: +BS, soft, non-distended. No tenderness to palpation. No rebound or guarding. EXTREMITIES: No pedal edema or calf tenderness. His compression stockings are off. There is trace bilateral pitting edema. NEURO: Exam is limited by patient's AMS. Is following commands, moving all extremities. Per PT note, will stand with maximal assistance but leans towards left side while standing. Can stand-pivot and sit at edge of bed with assistance. Generalized weakness, perhaps left sided worse than right. Results & Data ([facility]) Vital Signs (Past 12 Hours) Vital Signs Temp Pulse Pulse Resp BP BP Pulse Ox 04/05/20 15:10 36.9 C 78 18 152/72 H 98 04/05/20 14:20 78 04/05/20 11:17 36.6 C 85 18 169/70 H 97 04/05/20 07:26 36.8 C 79 18 170/77 H 97 Laboratory Results 04/05/20 04/05/20 04/05/20 Range/Units 16:52 13:07 11:43 Sodium (136-145) mmol/L Potassium (3.5-5.1) mmol/L Chloride (98-107) mmol/L Carbon Dioxide (21-32) mmol/L Anion Gap (3-11) BUN (7-18) mg/dl Creatinine (0.6-1.4) mg/dl Est Cr Clr Drug Dosing ml/min Est GFR ( Amer) Est GFR (Non-Af Amer) BUN/Creatinine Ratio (10-20) Glucose (70-99) mg/dl POC Glucose 136 H 180 H 241 H (70-99) mg/dl Calcium (8.5-10.1) mg/dl Total Bilirubin (0.2-1) mg/dl AST (15-37) U/L ALT (12-78) U/L Alkaline Phosphatase (45-117) U/L Total Protein (6.4-8.2) gm/dl Albumin (3.4-5.0) gm/dl Globulin (2.5-4.0) gm/dl Albumin/Globulin Ratio (0.9-2) 04/05/20 04/05/20 04/05/20 Range/Units 11:33 07:53 07:22 Sodium 126 L (136-145) mmol/L Potassium 3.7 (3.5-5.1) mmol/L Chloride 91 L (98-107) mmol/L Carbon Dioxide 26 (21-32) mmol/L Anion Gap 9.0 (3-11) BUN 14 (7-18) mg/dl Creatinine 0.69 (0.6-1.4) mg/dl Est Cr Clr Drug Dosing 111.4 ml/min Est GFR ( Amer) 104.6 Est GFR (Non-Af Amer) 90.3 BUN/Creatinine Ratio 19.7 (10-20) Glucose 104 H (70-99) mg/dl POC Glucose 270 H 110 H (70-99) mg/dl Calcium 8.8 (8.5-10.1) mg/dl Total Bilirubin 0.6 (0.2-1) mg/dl AST 25 (15-37) U/L ALT 51 (12-78) U/L Alkaline Phosphatase 189 H (45-117) U/L Total Protein 6.4 (6.4-8.2) gm/dl Albumin 3.7 (3.4-5.0) gm/dl Globulin 2.7 (2.5-4.0) gm/dl Albumin/Globulin Ratio 1.4 (0.9-2) 04/04/20 Range/Units 20:57 Sodium (136-145) mmol/L Potassium (3.5-5.1) mmol/L Chloride (98-107) mmol/L Carbon Dioxide (21-32) mmol/L Anion Gap (3-11) BUN (7-18) mg/dl Creatinine (0.6-1.4) mg/dl Est Cr Clr Drug Dosing ml/min Est GFR ( Amer) Est GFR (Non-Af Amer) BUN/Creatinine Ratio (10-20) Glucose (70-99) mg/dl POC Glucose 144 H (70-99) mg/dl Calcium (8.5-10.1) mg/dl Total Bilirubin (0.2-1) mg/dl AST (15-37) U/L ALT (12-78) U/L Alkaline Phosphatase (45-117) U/L Total Protein (6.4-8.2) gm/dl Albumin (3.4-5.0) gm/dl Globulin (2.5-4.0) gm/dl Albumin/Globulin Ratio (0.9-2) Medications Administered Current Inpatient Medications Acetaminophen (Tylenol) 1,000 mg PO BID ANTHONY Stop: 05/03/20 20:59 Last Admin: 04/05/20 08:50 Dose: 1,000 mg Documented by: Albuterol (Ventolin Hfa) 2 puffs INH Q4H PRN PRN Reason: Shortness Of Breath Or Wheezing Stop: 05/03/20 16:23 Amlodipine Besylate (Norvasc) 5 mg PO PM ANTHONY Stop: 05/03/20 20:59 Last Admin: 04/04/20 20:47 Dose: 5 mg Documented by: Aripiprazole (Abilify) 10 mg PO HS ANTHONY Stop: 05/03/20 20:59 Last Admin: 04/04/20 20:46 Dose: 10 mg Documented by: Aspirin (Ecotrin Ectab) 81 mg PO QAM ANTHONY Stop: 05/04/20 08:59 Last Admin: 04/05/20 08:48 Dose: 81 mg Documented by: Buspirone HCl (Buspar) 30 mg PO BID [facility] Stop: 05/03/20 20:59 Last Admin: 04/05/20 08:52 Dose: 30 mg Documented by: Dextrose (Dextrose 50%) 25 - 50 ml IV UD PRN; Protocol PRN Reason: Hypoglycemia Protocol Stop: 05/03/20 16:23 Docusate Sodium (Colace) 100 mg PO BID [facility] Stop: 05/03/20 20:59 Last Admin: 04/05/20 08:52 Dose: 100 mg Documented by: Enoxaparin Sodium (Lovenox) 30 mg SQ Q24H [facility] Stop: 05/03/20 16:23 Last Admin: 04/04/20 20:45 Dose: 30 mg Documented by: Finasteride (Proscar) 5 mg PO QAM [facility] Stop: 05/04/20 08:59 Last Admin: 04/05/20 08:48 Dose: 5 mg Documented by: Fluticasone Propionate (Flonase) 1 sprays NA DAILY PRN PRN Reason: Nasal Congestion Stop: 05/03/20 16:23 Gabapentin (Neurontin) 800 mg PO TID [facility] Stop: 05/05/20 13:59 Last Admin: 04/05/20 13:44 Dose: 800 mg Documented by: Gadobutrol (Gadavist 65ml) 10 ml IV ONCE PRN PRN Reason: Interaction Checking Stop: 04/09/20 12:37 Last Admin: 04/05/20 12:38 Dose: 10 ml Documented by: Glucagon (Glucagen) 1 mg SQ UD PRN; Protocol PRN Reason: Hypoglycemia Protocol Stop: 05/03/20 16:23 Glucose (Dex4 Glucose) 4 - 8 tabs PO UD PRN; Protocol PRN Reason: Hypoglycemia Protocol Stop: 05/03/20 16:23 Glucose (Glucose 40%) 15 - 30 gm PO UD PRN; Protocol PRN Reason: Hypoglycemia Protocol Stop: 05/03/20 16:23 Hydralazine HCl (Hydralazine Hcl) 10 mg IV Q8H PRN PRN Reason: Hypertension Stop: 05/03/20 16:23 Vancomycin HCl 2,500 mg/ (Sodium Chloride) 550 mls @ 200 mls/hr IV 1700 ONE Stop: 04/05/20 19:44 Last Admin: 04/05/20 17:00 Dose: 200 mls/hr Documented by: Cefepime HCl 2,000 mg/ Syringe 20 mls @ 5.5 mls/min IV Q8H [facility]; Protocol Stop: 04/07/20 15:59 Last Admin: 04/05/20 16:45 Dose: 5.5 mls/min Documented by: Vancomycin HCl 1,500 mg/ (Sodium Chloride) 530 mls @ 200 mls/hr IV Q12H [facility] Stop: 04/07/20 16:59 Insulin Aspart (Novolog Flexpen) 0 units SC ACHS [facility] Stop: 05/03/20 16:29 Last Admin: 04/05/20 13:44 Dose: 2 units Documented by: Magnesium Oxide (Mag-Ox) 400 mg PO QAM [facility] Stop: 05/04/20 08:59 Last Admin: 04/05/20 08:51 Dose: 400 mg Documented by: Miscellaneous (Order Awaiting Action) 1 ea N/A QS ANTHONY Stop: 05/04/20 00:00 Last Admin: 04/05/20 16:45 Dose: Not Given Documented by: Miscellaneous (Carbohydrates For Hypoglycemia) 15 - 30 gm PO UD PRN PRN Reason: Hypoglycemia Protocol Stop: 05/03/20 16:23 Miscellaneous Information (Consult) 1 ea N/A UD PRN PRN Reason: Consult Stop: 05/05/20 16:00 Multivitamins/Minerals (Caltrate Plus) [facility] Stop: 05/04/20 08:59 Last Admin: 04/05/20 08:50 Dose: 1 tab Documented by: Simvastatin (Zocor) 40 mg PO QPM [facility] Stop: 05/03/20 20:59 Last Admin: 04/04/20 20:49 Dose: 40 mg Documented by: Sodium Chloride (Sodium Chloride) 1 gm PO BID [facility] Stop: 05/05/20 11:44 Last Admin: 04/05/20 13:48 Dose: 1 gm Documented by: Trazodone HCl (Desyrel) 150 mg PO HS [facility] Stop: 05/03/20 20:59 Last Admin: 04/04/20 20:47 Dose: 150 mg Documented by: Venlafaxine HCl (Effexor Extended Release) 300 [facility] Stop: 05/04/20 08:59 Last Admin: 04/05/20 08:51 Dose: 300 mg Documented by: Vitamin B Complex (Vitamin B Complex) 1 tab PO QAM [facility] Stop: 05/04/20 08:59 Last Admin: 04/05/20 08:51 Dose: 1 tab Documented by: Vitamin D (Vitamin D3) 2,000 units [facility] Stop: 05/04/20 08:59 Last Admin: 04/05/20 08:48 Dose: 2,000 units Documented by: Resident Activity Tracking Resident Involvement: Resident Care Provided Care Provided: Adult Hospital Medicine (1) CHF (congestive heart failure) Heart failure chronicity: unspecified Heart failure type: unspecified Qualified Code(s): I50.9 - Heart failure, unspecified (2) AMS (altered mental status) Altered mental status type: somnolence Qualified Code(s): R40.0 - Somnolence
[2020-04-05] MEDS: ARIPiprazole 10 MG TAB PO SCH (20:25)
[2020-04-05] MEDS: AMLODIPINE BESYLATE 5 MG TAB PO SCH (20:25)
[2020-04-05] MEDS: TRAZODONE HCL 50 MG TAB PO SCH (20:26)
--- NOTE | 2020-04-05 20:27 | Billing Data ---
Date of Service April 05, 2020 Coding Level of Care Code 21239 Subseq Hosp Care Lvl 3
[2020-04-05] MEDS: SIMVASTATIN 40 MG TAB PO SCH (20:28)
[2020-04-06] MEDS: VANCOMYCIN HCL 1,500 MG in SODIUM CHLORIDE 0.9% 500 ML IV SCH ×2 (05:45→18:47)
[2020-04-06 08:02] LABS: Basophils # (auto) 0.03 K/uL (0-0.2); Basophils % (auto) 0.3 %; Eosinophils # (auto) 0.05 K/uL (0-0.5); Eosinophils % (auto) 0.5 %; Hematocrit (blood only) 34.2 % (42-52); Hemoglobin 12.8 g/dL (14.0-18.0); Immature Granulocytes # (auto) 0.02 K/uL (0.00-0.02); Immature Granulocytes % (auto) 0.2 %; Lymphocytes # (auto) 0.86 K/uL (1.2-3.4); Lymphocytes % (auto) 9.3 %; Mean Corpuscular Hemoglobin 30.8 pg (25-34); Mean Corpuscular Hgb Conc 37.4 g/dL (32-36); Mean Corpuscular Volume 82.2 fL (80-100); Mean Platelet Volume 10.1 fL (7.4-10.4); Monocytes # (auto) 0.89 K/uL (0.11-0.59); Monocytes % (auto) 9.6 %; Neutrophils % (auto) 80.1 %; Platelet Count 129 K/uL (130-400); RDW Coefficient of Variation 12.9 % (11.5-14.5); RDW Standard Deviation 38.9 fL (36.4-46.3); Red Blood Count 4.16 M/uL (4.7-6.1); White Blood Count 9.25 K/uL (4.8-10.8)
[2020-04-06] MEDS: VITAMIN B COMPLEX TAB PO SCH (08:05)
[2020-04-06] MEDS: VENLAFAXINE HCL XR 150 MG CAPXR PO SCH (08:06)
[2020-04-06] MEDS: GABAPENTIN 800 MG TAB PO SCH ×3 (08:06→20:54)
[2020-04-06] MEDS: CHOLECALCIFEROL 1,000 UNITS 25 MCG TAB PO SCH (08:06)
[2020-04-06] MEDS: CALCIUM 600MG + VIT D 400 IU TAB PO SCH (08:07)
[2020-04-06] MEDS: FINASTERIDE 5 MG TAB PO SCH (08:07)
[2020-04-06] MEDS: MAGNESIUM OXIDE 400 MG TAB PO SCH (08:07)
[2020-04-06] MEDS: DOCUSATE SODIUM 100 MG CAP PO SCH ×2 (08:08→20:55)
[2020-04-06] MEDS: ACETAMINOPHEN 500 MG TAB PO SCH ×2 (08:08→20:52)
[2020-04-06] MEDS: SODIUM CHLORIDE 1 GM TABLET PO SCH ×2 (08:08→20:55)
[2020-04-06] MEDS: BusPIRone 15 MG TAB PO SCH ×2 (08:08→20:56)
[2020-04-06 08:10] LABS: INR 1.1 (0.9-1.1); Prothrombin Time 11.1 Seconds (9.0-12.0)
[2020-04-06] MEDS: INSULIN ASPART 100 UNITS/ML 3 ML PEN SC SCH ×4 (08:30→20:57)
[2020-04-06 08:32] LABS: Albumin Level 3.6 gm/dl (3.4-5.0); Calcium 8.7 mg/dl (8.5-10.1); Creatinine Clr Calc Pharmacy 124.7 ml/min; Est GFR (African American) 110.1; Magnesium 1.9 mg/dl (1.8-2.4); Potassium 3.9 mmol/L (3.5-5.1)
[2020-04-06 08:35] LABS: Albumin Globulin Ratio 1.2 (0.9-2); Bilirubin,Total 0.7 mg/dl (0.2-1); Globulin 2.9 gm/dl (2.5-4.0); Total Protein 6.5 gm/dl (6.4-8.2)
[2020-04-06] MEDS: CEFEPIME 2,000 MG in SYRINGE 7.5 ML IV SCH ×3 (08:36→23:40)
[2020-04-06 10:22] LABS: Appearance CSF BLOODY; Color CSF RED; Red Blood Cell CSF (A) 68000 /uL (0-); White Blood Cell CSF (A) 26 /uL (0-5)
[2020-04-06 10:24] LABS: Total Protein CSF 341.4 mg/dl (15-45)
--- NOTE | 2020-04-06 10:30 | Fluoroscopy Report ---
FL lumbar puncture diagnostic CLINICAL HISTORY: 79 years-old Male presenting with ? ventriculitis on MRI, eval for infection. COMPARISON: 11/23/2014 and brain MR from 04/05/2020. PROCEDURE: The procedure, risks and benefits were discussed with the patient including the risk of spinal headac he, bleeding and infection. The patient agreed to the procedure and informed written consent was obta ined. The procedure was performed by Dr. Gonzalez following a timeout. The L3-4 interspinous space was targeted. Skin overlying the space was prepped and draped in the usua l aseptic fashion and local anesthesia was achieved with 1% lidocaine. Under intermittent fluoroscopi c guidance, a 20-gauge x 3 1/2 in. Sprotte needle was inserted into the thecal sac. Opening pressure was obtained in prone positioning, which measured 20 cmH2O. A total of 9 mL of clear , red cerebral spinal fluid was obtained and spread amongst 4 vials. The blood tinged cerebrospinal f luid did not clear with subsequent drainage and was homogeneous suggesting hemorrhage unrelated to th e procedure. The patient tolerated the procedure well. There were no immediate complications. The specimens were s ent to the laboratory at the request of the referring physician. Reference range: Normal opening pressure 6-25 cmH2O (95% reference interval for lateral decubitus positioning). Fluoroscopy dosage (mGy): Not available. Fluoroscopy time: 0.2 minutes. Number or time of high level fluoroscopy (HLF), digital spot, or digital subtraction images: 0. IMPRESSION: 1. Successful fluoroscopic guided lumbar puncture with removal of 9 mL of clear, red cerebral spinal fluid. Findings suggest hemorrhage unrelated to the lumbar puncture as there is no clearance of bloo d tinged CSF throughout the drainage. 2. Normal opening pressure. ACT 112: Negative or not required by law. Electronically signed by: David Gonzalez M.D. 04/06/2020 10:29 AM
[2020-04-06 10:47] LABS: CSF Count Tube # 4; CSF Xanthrochromic Xanthochromic
[2020-04-06 10:54] LABS: Appearance CSF BLOODY; Color CSF RED; Red Blood Cell CSF (A) 65000 /uL (0-); White Blood Cell CSF (A) 30 /uL (0-5)
[2020-04-06 11:03] LABS: CSF Xanthrochromic Xanthochromic
[2020-04-06 11:05] LABS: Total Protein CSF 298.3 mg/dl (15-45)
[2020-04-06 11:09] LABS: CSF Count Tube # 3
[2020-04-06] MEDS: ACYCLOVIR SOD IV SCH ×2 (12:18→22:36)
[2020-04-06] MEDS: DEXTROSE 5% IV SCH ×2 (12:18→22:36)
--- NOTE | 2020-04-06 15:32 | Family Medicine Progress Note ---
Date of Service April 06, 2020 Assessment & Plan (1) AMS (altered mental status): 79-year-old male was admitted on 03 Apr 2020 via EMS (from [facility]) for confusion and hyponatremia. Altered mental status, possible metabolic encephalopathy, right frontal lobe lacunar infarct: Background details are unclear. Suspect this is multifactorial in origin to include hyponatremia, polypharmacy, recent CVA, and/or MANA[employer] infectious process. See neuro notes. Workup thus far positive for right frontal lobe infarct (timing unclear, ? prior fall) and questionable ventriculitis. No role for surgery. -21May started empiric vancomycin and cefepime. - 22May LP performed, has notable RBCs and some WBCs (? latter related to the blood vs infection). Elevated CSF protein and low glucose. CSF gram stain negative. CSF culture pending. - Ordered CSF HSV labs. 22May started empiric acyclovir although no sign of HSV encephalitis on MRI brain. Hyponatremia: PMH same since perhaps January 2019. Admit sodium 125, mostly stable around that level. Urine testing initially suggestive of hypovolemia, though no lasting improvement with IVF. On fluid restriction and salt tabs 1 gram BID. May consider changing his venlafaxine or trazodone, as both can contribute to hyponatremia. Urinary incontinence: Has ongoing urinary incontinence. Daughter says this is a relatively new finding. UCx grew strep, sensitivities pending. Present coverage with antibiotics as above. Hypertension: PMH same. Kept home amlodipine, held home spironolactone and Lasix. On hydralazine prn. Could also increase his amlodipine if needed, though some elevation may be permissive. Monitoring. Second degree Type 1 AV block: Seen on telemetry on afternoon of 19May with HR as low as 30s. Asymptomatic, no noted pauses. See cardiology note, did not recommend immediate intervention. No noted rhythm changes when he was standing/moving with physical therapy. Longstanding sensory ataxia /diabetic peripheral neuropathy, recent fall and left rib fractures: Holding opiates due to AMS. On scheduled Tylenol. Elevated alk phos: Admit AP 173, stable around 190. 19May abdominal u/s noted cholelithiasis without evidence of cholecystitis and a cirrhotic liver morphology. Non-tender abdomen. Remaining LFTs okay. Monitor for now. Splenomegaly: Including a 6.8 cm heterogeneous focus on 19May u/s. May be post- traumatic from prior fall. Ongoing medical issues: - Hyperlipidemia, ? CHF: Continue home Zocor. 20May TTE noted EF 55-60%, normal LVSF, no significant change since April 2019. Listed to be on lasix 10 mg prn (presently held as inpatient). - Iron deficiency anemia: Admit Hb 12.5 (MCV 83), higher on recheck. No evidence of acute bleeding. Suspect anemia of chronic inflammation as well. - Diabetes type 2: March 2020 HbA1c 6.1. Held home glargine, aspart, and metformin. Held home aspirin due to blood in CSF. --- Placed on insulin sliding scale. - Mixed restrictive and obstructive lung disease, chronic hypoxic resp. failure: Is on 2-3 L NC oxygen at home (though not requiring it much as inpatient). Sees Dr. Tomas of pulmonology as outpatient. Continue home albuterol prn. - Chronic kidney disease: Creatinine around 0.7 as inpatient. - Mild tardive dyskinesia: Thought to be related to Abilify. Follows with psychiatry as an outpatient. On last admit, neuro recommended trial of Cogentin. On home abilify. --- Per neurology, his home gabapentin dosing was decreased from QID to TID and his home amantadine was discontinued. - Alcoholic and compensated hepatitis C cirrhosis, thrombocytopenia: Alcohol cessation in 2007. Previously followed by [facility]. Admit platelets 116. Normal LFTs. Seen by hematology in 2018, noted thrombocytopenia likely related to Hep C (s/p blood transfusion). - Opiate-associated constipation: Tapentadol BID was stopped on last discharge and swapped with new oxycodone which is now held for AMS. --- Held home bisacodyl and miralax. Continue home docusate. - Obstructive sleep apnea: Reportedly wears BiPAP intermittently. Ordered for inpatient. - Microscopic hematuria: On prior discharge, plan was for outpatient cystoscopy with urology. No UA RBCs seen on this admit. - BPH: Continue home finasteride and silodosin. - Depression, anxiety: Continue home buspirone. Continuing venlafaxine and trazodone for now. Code status: Full code. Diet: DM2. Fluid restrict to 2000 mL/day. DVT prophy: Holding lovenox for now. SCDs. PT/OT: PT noted he stands with maximum assistance. Leans to the left when standing. Disbo: Admitted to med surg tele. Daughter is Niyah ([phone]), lives in [place]. Provided update today (22May). Case management onboard. Ordered COVID testing in case of back to rehab (not due to symptoms). (2) Hyponatremia: (3) Hypertension: (4) Elevated alkaline phosphatase level: (5) Cholelithiasis: (6) Iron deficiency anemia: (7) Hyperlipidemia: (8) Diabetes mellitus: (9) Diabetic peripheral neuropathy: (10) Mixed restrictive and obstructive lung disease: (11) Chronic kidney disease, stage II (mild): (12) CHF (congestive heart failure): (13) Tardive dyskinesia: (14) Cirrhosis, alcoholic: (15) Compensated HCV cirrhosis: (16) Constipation due to pain medication: (17) TERI (obstructive sleep apnea): (18) Benign prostatic hyperplasia with urinary obstruction: (19) Anxiety: (20) Depression: (21) Second degree atrioventricular block, Mobitz (type) I: (22) Metabolic encephalopathy: (23) Right-sided lacunar infarction: Admission and Anticipated Discharge Date Admission Date: April 03, 2020 Supervising Physician Co-Signing Physician Notes I personally examined the patient and verified all massey points of history and exam, discussed case, and agree with decision making with Dr. Heart with the following additions/exceptions: Pt pleasantly confused when I saw him at dinner time as he was off doing numerous tests today. He wasfeeding himself dinner and quiet, but answered some questions. He did not answer some of my questions and seemed focused on his dinner. BMP in afternoon showed worsening hyponatremia despite fluid restriction Gave NS 500mL over 4 hours Vitals reviewed, telemetry with occasional Mobitz type I second-degree heart block and sinus rhythm with first-degree heart block, rates were in the 80s to 90s and as low as 55 with Mobitz 1 Obese, NAD, alert awake Anicteric sclerae Regular rhythm and rate no murmur Clear to auscultation bilaterally, no wheezes crackles or rhonchi Abdomen positive bowel sounds soft, nontender nondistended Extremities no edema Skin no rashes Neuro-moving all extremities, still confused Laboratory values reviewed, CTA head/neck without significant stenoses or other abnormalities CSF studies reviewed Discussed care with Neurology 79-year-old male here with history as above with altered mental status and hyponatremia, now with possible acute frontal lobe CVA and ventriculitis vs old blood from previous trauma -also developed a Mobitz type I heart block that was asymptomatic with rates into the 30s and 40s after admission which is intermittently persistent but asymptomatic Initially thought that altered mental status could be from hyponatremia which also is likely contributing, however with abnormal findings on brain MRI-suspect old bleed from his fall from several weeks ago, versus ventriculitis which seems less likely especially in that he has no fever or nuchal rigidity or signs of meningitis. LP performed with opening pressure 20 in lat decub position, high WBCs likely from blood, but with significant RBCs that did not clear with subsequent tube collections--> no evidence of HSV encephalitis on MRI but will cover with empiric acyclovir anyway and follow CSF cx and HSV PCR Unfortunately, ID no longer available here for consultation -continue empiric Vanco and Cefepime, acyclovir -continue to hold aspirin and Lovenox Also with questionable abnormal UA and urine culture with pinpoint growth- culture now with Streptococcus species which may end up being enterococcus-he is now on vancomycin as above which should cover for this Consult cardiology for second-degree heart block appreciated-not concerning unless he does not appropriately increase his heart rate with ambulation. However his heart rate did increase with ambulation today so this should be fine. For acute lacunar infarct seen on MRI, continue aspirin and statin, blood pressure control, CTA head/neck normal, ECHO without thrombus, no Afib/flutter on tele Continued stay, eventually needs placement after further workup for Neuro issues as above Subjective Earlier this morning the patient was out of his room, undergoing an LP. Met with him this afternoon. Patient was lying in bed comfortably with his eyes open. When I said miles and asked him how he was doing, he said he was "okay". He knows his name but presently does not know his birthday, the year, where he has, or why he is here. When asked if he has any pain, he smiles and says no. Otherwise he does not volunteer any information. Review of Systems Review of Systems: Per HPI as above. Physical Exam Physical Exam: GENERAL: Awake, alert, oriented to person only, appears comfortable overall. HENT: Normocephalic, atraumatic. He is missing his lower dentures. CARDIAC: +S1S2 RRR, no murmurs. RESPIRATORY: Clear to auscultation. No wheezes or rales. Normal respiratory effort. Presently on room air. GI: +BS, soft, non-distended. No tenderness to palpation. No rebound or guarding. EXTREMITIES: No pedal edema or calf tenderness. His compression stockings are off. There is trace bilateral pitting edema. NEURO: Exam remains limited by AMS. Follows commands. Good and relatively even oracle adf consultant strength in bilateral hands. See related physical therapy notes. Results & Data ([facility]) Vital Signs (Past 12 Hours) Vital Signs Temp Pulse Pulse Resp BP BP Pulse Ox 04/06/20 11:24 36.6 C 95 H 20 126/82 95 04/06/20 07:49 78 04/06/20 07:33 37 C 88 20 181/76 H 96 04/06/20 04:13 36.4 C L 75 17 166/66 H 96 Laboratory Results 04/06/20 04/06/20 04/06/20 Range/Units 14:19 09:33 09:33 WBC (4.8-10.8) K/uL RBC (4.7-6.1) M/uL Hgb (14.0-18.0) g/dL Hct (42-52) % MCV (80-100) fL MCH (25-34) pg MCHC (32-36) g/dL RDW Std Deviation (36.4-46.3) fL RDW Coeff of Ja (11.5-14.5) % Plt Count (130-400) K/uL MPV (7.4-10.4) fL Immature Gran % (Auto) % Neut % (Auto) % Lymph % (Auto) % Young % (Auto) % Eos % (Auto) % Baso % (Auto) % Immature Gran # (Auto) (0.00-0.02) K/uL Neut # (Auto) (1.4-6.5) K/uL Lymph # (Auto) (1.2-3.4) K/uL Young # (Auto) (0.11-0.59) K/uL Eos # (Auto) (0-0.5) K/uL Baso # (Auto) (0-0.2) K/uL PT (9.0-12.0) Seconds INR (0.9-1.1) Sodium (136-145) mmol/L Potassium (3.5-5.1) mmol/L Chloride (98-107) mmol/L Carbon Dioxide (21-32) mmol/L Anion Gap (3-11) BUN (7-18) mg/dl Creatinine (0.6-1.4) mg/dl Est Cr Clr Drug Dosing ml/min Est GFR ( Amer) Est GFR (Non-Af Amer) BUN/Creatinine Ratio (10-20) Glucose (70-99) mg/dl POC Glucose 179 H (70-99) mg/dl Calcium (8.5-10.1) mg/dl Magnesium (1.8-2.4) mg/dl Total Bilirubin (0.2-1) mg/dl AST (15-37) U/L ALT (12-78) U/L Alkaline Phosphatase (45-117) U/L Total Protein (6.4-8.2) gm/dl Albumin (3.4-5.0) gm/dl Globulin (2.5-4.0) gm/dl Albumin/Globulin Ratio (0.9-2) CSF Appearance BLOODY CSF Color RED Xanthrochromic Xanthochromic CSF WBC 30 H* (0-5) /uL CSF RBC 40039 (0-) /uL CSF Cell Count Tube # 4 CSF Mononuclear WBCs % 30.0 % CSF Polynuclear WBCs % 70.0 % CSF Chemistry Tube # 4 CSF Glucose 50 (40-70) mg/dl CSF Lactate CSF Total Protein 298.3 H (15-45) mg/dl Herpes Virus Source HSV I DNA PCR HSV II DNA PCR SARS-CoV-2 RNA (RT-PCR) 04/06/20 04/06/20 04/06/20 Range/Units 09:33 09:33 09:33 WBC (4.8-10.8) K/uL RBC (4.7-6.1) M/uL Hgb (14.0-18.0) g/dL Hct (42-52) % MCV (80-100) fL MCH (25-34) pg MCHC (32-36) g/dL RDW Std Deviation (36.4-46.3) fL RDW Coeff of Ja (11.5-14.5) % Plt Count (130-400) K/uL MPV (7.4-10.4) fL Immature Gran % (Auto) % Neut % (Auto) % Lymph % (Auto) % Young % (Auto) % Eos % (Auto) % Baso % (Auto) % Immature Gran # (Auto) (0.00-0.02) K/uL Neut # (Auto) (1.4-6.5) K/uL Lymph # (Auto) (1.2-3.4) K/uL Young # (Auto) (0.11-0.59) K/uL Eos # (Auto) (0-0.5) K/uL Baso # (Auto) (0-0.2) K/uL PT (9.0-12.0) Seconds INR (0.9-1.1) Sodium (136-145) mmol/L Potassium (3.5-5.1) mmol/L Chloride (98-107) mmol/L Carbon Dioxide (21-32) mmol/L Anion Gap (3-11) BUN (7-18) mg/dl Creatinine (0.6-1.4) mg/dl Est Cr Clr Drug Dosing ml/min Est GFR ( Amer) Est GFR (Non-Af Amer) BUN/Creatinine Ratio (10-20) Glucose (70-99) mg/dl POC Glucose (70-99) mg/dl Calcium (8.5-10.1) mg/dl Magnesium (1.8-2.4) mg/dl Total Bilirubin (0.2-1) mg/dl AST (15-37) U/L ALT (12-78) U/L Alkaline Phosphatase (45-117) U/L Total Protein (6.4-8.2) gm/dl Albumin (3.4-5.0) gm/dl Globulin (2.5-4.0) gm/dl Albumin/Globulin Ratio (0.9-2) CSF Appearance BLOODY CSF Color RED Xanthrochromic Xanthochromic CSF WBC 26 H* (0-5) /uL CSF RBC 85918 (0-) /uL CSF Cell Count Tube # 3 CSF Mononuclear WBCs % 36.0 % CSF Polynuclear WBCs % 64.0 % CSF Chemistry Tube # 1 CSF Glucose 47 (40-70) mg/dl CSF Lactate Cancelled CSF Total Protein 341.4 H (15-45) mg/dl Herpes Virus Source Pending HSV I DNA PCR Pending HSV II DNA PCR Pending SARS-CoV-2 RNA (RT-PCR) 04/06/20 04/06/20 04/06/20 Range/Units 07:55 07:26 07:26 WBC (4.8-10.8) K/uL RBC (4.7-6.1) M/uL Hgb (14.0-18.0) g/dL Hct (42-52) % MCV (80-100) fL MCH (25-34) pg MCHC (32-36) g/dL RDW Std Deviation (36.4-46.3) fL RDW Coeff of Ja (11.5-14.5) % Plt Count (130-400) K/uL MPV (7.4-10.4) fL Immature Gran % (Auto) % Neut % (Auto) % Lymph % (Auto) % Young % (Auto) % Eos % (Auto) % Baso % (Auto) % Immature Gran # (Auto) (0.00-0.02) K/uL Neut # (Auto) (1.4-6.5) K/uL Lymph # (Auto) (1.2-3.4) K/uL Young # (Auto) (0.11-0.59) K/uL Eos # (Auto) (0-0.5) K/uL Baso # (Auto) (0-0.2) K/uL PT 11.1 (9.0-12.0) Seconds INR 1.1 (0.9-1.1) Sodium 125 L (136-145) mmol/L Potassium 3.9 (3.5-5.1) mmol/L Chloride 91 L (98-107) mmol/L Carbon Dioxide 24 (21-32) mmol/L Anion Gap 10.0 (3-11) BUN 10 (7-18) mg/dl Creatinine 0.61 (0.6-1.4) mg/dl Est Cr Clr Drug Dosing 124.7 ml/min Est GFR ( Amer) 110.1 Est GFR (Non-Af Amer) 95.0 BUN/Creatinine Ratio 17.0 (10-20) Glucose 118 H (70-99) mg/dl POC Glucose 137 H (70-99) mg/dl Calcium 8.7 (8.5-10.1) mg/dl Magnesium 1.9 (1.8-2.4) mg/dl Total Bilirubin 0.7 (0.2-1) mg/dl AST 30 (15-37) U/L ALT 57 (12-78) U/L Alkaline Phosphatase 181 H (45-117) U/L Total Protein 6.5 (6.4-8.2) gm/dl Albumin 3.6 (3.4-5.0) gm/dl Globulin 2.9 (2.5-4.0) gm/dl Albumin/Globulin Ratio 1.2 (0.9-2) CSF Appearance CSF Color Xanthrochromic CSF WBC (0-5) /uL CSF RBC (0-) /uL CSF Cell Count Tube # CSF Mononuclear WBCs % % CSF Polynuclear WBCs % % CSF Chemistry Tube # CSF Glucose (40-70) mg/dl CSF Lactate CSF Total Protein (15-45) mg/dl Herpes Virus Source HSV I DNA PCR HSV II DNA PCR SARS-CoV-2 RNA (RT-PCR) 04/06/20 04/05/20 04/05/20 Range/Units 07:26 20:32 16:52 WBC 9.25 (4.8-10.8) K/uL RBC 4.16 L (4.7-6.1) M/uL Hgb 12.8 L (14.0-18.0) g/dL Hct 34.2 L (42-52) % MCV 82.2 (80-100) fL MCH 30.8 (25-34) pg MCHC 37.4 H (32-36) g/dL RDW Std Deviation 38.9 (36.4-46.3) fL RDW Coeff of Ja 12.9 (11.5-14.5) % Plt Count 129 L (130-400) K/uL MPV 10.1 (7.4-10.4) fL Immature Gran % (Auto) 0.2 % Neut % (Auto) 80.1 % Lymph % (Auto) 9.3 % Young % (Auto) 9.6 % Eos % (Auto) 0.5 % Baso % (Auto) 0.3 % Immature Gran # (Auto) 0.02 (0.00-0.02) K/uL Neut # (Auto) 7.40 H (1.4-6.5) K/uL Lymph # (Auto) 0.86 L (1.2-3.4) K/uL Young # (Auto) 0.89 H (0.11-0.59) K/uL Eos # (Auto) 0.05 (0-0.5) K/uL Baso # (Auto) 0.03 (0-0.2) K/uL PT (9.0-12.0) Seconds INR (0.9-1.1) Sodium (136-145) mmol/L Potassium (3.5-5.1) mmol/L Chloride (98-107) mmol/L Carbon Dioxide (21-32) mmol/L Anion Gap (3-11) BUN (7-18) mg/dl Creatinine (0.6-1.4) mg/dl Est Cr Clr Drug Dosing ml/min Est GFR ( Amer) Est GFR (Non-Af Amer) BUN/Creatinine Ratio (10-20) Glucose (70-99) mg/dl POC Glucose 180 H 136 H (70-99) mg/dl Calcium (8.5-10.1) mg/dl Magnesium (1.8-2.4) mg/dl Total Bilirubin (0.2-1) mg/dl AST (15-37) U/L ALT (12-78) U/L Alkaline Phosphatase (45-117) U/L Total Protein (6.4-8.2) gm/dl Albumin (3.4-5.0) gm/dl Globulin (2.5-4.0) gm/dl Albumin/Globulin Ratio (0.9-2) CSF Appearance CSF Color Xanthrochromic CSF WBC (0-5) /uL CSF RBC (0-) /uL CSF Cell Count Tube # CSF Mononuclear WBCs % % CSF Polynuclear WBCs % % CSF Chemistry Tube # CSF Glucose (40-70) mg/dl CSF Lactate CSF Total Protein (15-45) mg/dl Herpes Virus Source HSV I DNA PCR HSV II DNA PCR SARS-CoV-2 RNA (RT-PCR) 04/05/20 Range/Units 16:50 WBC (4.8-10.8) K/uL RBC (4.7-6.1) M/uL Hgb (14.0-18.0) g/dL Hct (42-52) % MCV (80-100) fL MCH (25-34) pg MCHC (32-36) g/dL RDW Std Deviation (36.4-46.3) fL RDW Coeff of Ja (11.5-14.5) % Plt Count (130-400) K/uL MPV (7.4-10.4) fL Immature Gran % (Auto) % Neut % (Auto) % Lymph % (Auto) % Young % (Auto) % Eos % (Auto) % Baso % (Auto) % Immature Gran # (Auto) (0.00-0.02) K/uL Neut # (Auto) (1.4-6.5) K/uL Lymph # (Auto) (1.2-3.4) K/uL Young # (Auto) (0.11-0.59) K/uL Eos # (Auto) (0-0.5) K/uL Baso # (Auto) (0-0.2) K/uL PT (9.0-12.0) Seconds INR (0.9-1.1) Sodium (136-145) mmol/L Potassium (3.5-5.1) mmol/L Chloride (98-107) mmol/L Carbon Dioxide (21-32) mmol/L Anion Gap (3-11) BUN (7-18) mg/dl Creatinine (0.6-1.4) mg/dl Est Cr Clr Drug Dosing ml/min Est GFR ( Amer) Est GFR (Non-Af Amer) BUN/Creatinine Ratio (10-20) Glucose (70-99) mg/dl POC Glucose (70-99) mg/dl Calcium (8.5-10.1) mg/dl Magnesium (1.8-2.4) mg/dl Total Bilirubin (0.2-1) mg/dl AST (15-37) U/L ALT (12-78) U/L Alkaline Phosphatase (45-117) U/L Total Protein (6.4-8.2) gm/dl Albumin (3.4-5.0) gm/dl Globulin (2.5-4.0) gm/dl Albumin/Globulin Ratio (0.9-2) CSF Appearance CSF Color Xanthrochromic CSF WBC (0-5) /uL CSF RBC (0-) /uL CSF Cell Count Tube # CSF Mononuclear WBCs % % CSF Polynuclear WBCs % % CSF Chemistry Tube # CSF Glucose (40-70) mg/dl CSF Lactate CSF Total Protein (15-45) mg/dl Herpes Virus Source HSV I DNA PCR HSV II DNA PCR SARS-CoV-2 RNA (RT-PCR) Pending Medications Administered Current Inpatient Medications Acetaminophen (Tylenol) 1,000 mg PO BID ANTHONY Stop: 05/03/20 20:59 Last Admin: 04/06/20 08:08 Dose: 1,000 mg Documented by: Albuterol (Ventolin Hfa) 2 puffs INH Q4H PRN PRN Reason: Shortness Of Breath Or Wheezing Stop: 05/03/20 16:23 Amlodipine Besylate (Norvasc) 5 mg PO PM ANTHONY Stop: 05/03/20 20:59 Last Admin: 04/05/20 20:25 Dose: 5 mg Documented by: Aripiprazole (Abilify) 10 mg PO HS ANTHONY Stop: 05/03/20 20:59 Last Admin: 04/05/20 20:25 Dose: 10 mg Documented by: Aspirin (Ecotrin Ectab) 81 mg PO QAM ANTHONY Stop: 05/04/20 08:59 Last Admin: 04/05/20 08:48 Dose: 81 mg Documented by: Buspirone HCl (Buspar) 30 mg PO BID ANTHONY Stop: 05/03/20 20:59 Last Admin: 04/06/20 08:08 Dose: 30 mg Documented by: Dextrose (Dextrose 50%) 25 - 50 ml IV UD PRN; Protocol PRN Reason: Hypoglycemia Protocol Stop: 05/03/20 16:23 Docusate Sodium (Colace) 100 mg PO BID ANTHONY Stop: 05/03/20 20:59 Last Admin: 04/06/20 08:08 Dose: 100 mg Documented by: Enoxaparin Sodium (Lovenox) 30 mg SQ Q24H ANTHONY Stop: 05/03/20 16:23 Last Admin: 04/04/20 20:45 Dose: 30 mg Documented by: Finasteride (Proscar) 5 mg PO QAM ANTHONY Stop: 05/04/20 08:59 Last Admin: 04/06/20 08:07 Dose: 5 mg Documented by: Fluticasone Propionate (Flonase) 1 sprays NA DAILY PRN PRN Reason: Nasal Congestion Stop: 05/03/20 16:23 Gabapentin (Neurontin) 800 mg PO TID ANTHONY Stop: 05/05/20 13:59 Last Admin: 04/06/20 14:23 Dose: 800 mg Documented by: Gadobutrol (Gadavist 65ml) 10 ml IV ONCE PRN PRN Reason: Interaction Checking Stop: 04/09/20 12:37 Last Admin: 04/05/20 12:38 Dose: 10 ml Documented by: Glucagon (Glucagen) 1 mg SQ UD PRN; Protocol PRN Reason: Hypoglycemia Protocol Stop: 05/03/20 16:23 Glucose (Dex4 Glucose) 4 - 8 tabs PO UD PRN; Protocol PRN Reason: Hypoglycemia Protocol Stop: 05/03/20 16:23 Glucose (Glucose 40%) 15 - 30 gm PO UD PRN; Protocol PRN Reason: Hypoglycemia Protocol Stop: 05/03/20 16:23 Hydralazine HCl (Hydralazine Hcl) 10 mg IV Q8H PRN PRN Reason: Hypertension Stop: 05/03/20 16:23 Cefepime HCl 2,000 mg/ Syringe 20 mls @ 5.5 mls/min IV Q8H ANTHONY; Protocol Stop: 04/07/20 15:59 Last Admin: 04/06/20 08:36 Dose: 5.5 mls/min Documented by: Vancomycin HCl 1,500 mg/ (Sodium Chloride) 530 mls @ 200 mls/hr IV Q12H ANTHONY Stop: 04/07/20 16:59 Last Infusion: 04/06/20 09:54 Dose: Infused Documented by: Acyclovir Sodium 825 mg/ (Dextrose) 266.5 mls @ 250 mls/hr IV Q8H ANTHONY; Protocol Stop: 04/08/20 11:59 Last Infusion: 04/06/20 14:14 Dose: Infused Documented by: Insulin Aspart (Novolog Flexpen) 0 units SC ACHS ANTHONY Stop: 05/03/20 16:29 Last Admin: 04/06/20 14:23 Dose: 3 units Documented by: Magnesium Oxide (Mag-Ox) 400 mg PO QAM ANTHONY Stop: 05/04/20 08:59 Last Admin: 04/06/20 08:07 Dose: 400 mg Documented by: Miscellaneous (Order Awaiting Action) 1 ea N/A QS ANTHONY Stop: 05/04/20 00:00 Last Admin: 04/06/20 08:09 Dose: Not Given Documented by: Miscellaneous (Carbohydrates For Hypoglycemia) 15 - 30 gm PO UD PRN PRN Reason: Hypoglycemia Protocol Stop: 05/03/20 16:23 Miscellaneous Information (Consult) 1 ea N/A UD PRN PRN Reason: Consult Stop: 05/05/20 16:00 Multivitamins/Minerals (Caltrate Plus) 1 tab PO QAM COUNT INCLUDES THE [facility] Stop: 05/04/20 08:59 Last Admin: 04/06/20 08:07 Dose: 1 tab Documented by: Simvastatin (Zocor) 40 mg PO QPM COUNT INCLUDES THE [facility] Stop: 05/03/20 20:59 Last Admin: 04/05/20 20:28 Dose: 40 mg Documented by: Sodium Chloride (Sodium Chloride) 1 gm PO BID COUNT INCLUDES THE [facility] Stop: 05/05/20 11:44 Last Admin: 04/06/20 08:08 Dose: 1 gm Documented by: Trazodone HCl (Desyrel) 150 mg PO HS COUNT INCLUDES THE [facility] Stop: 05/03/20 20:59 Last Admin: 04/05/20 20:26 Dose: 150 mg Documented by: Venlafaxine HCl (Effexor Extended Release) [facility] [place]: 05/04/20 08:59 Last Admin: 04/06/20 08:06 Dose: 300 mg Documented by: Vitamin B Complex (Vitamin B Complex) 1 [facility] [place]: 05/04/20 08:59 Last Admin: 04/06/20 08:05 Dose: 1 tab Documented by: Vitamin D (Vitamin D3) 2,000 units PO QAM COUNT INCLUDES THE [facility] Stop: 05/04/20 08:59 Last Admin: 04/06/20 08:06 Dose: 2,000 units Documented by: Resident Activity Tracking Resident Involvement: Resident Care Provided Care Provided: Adult Hospital Medicine (1) CHF (congestive heart failure) Heart failure chronicity: unspecified Heart failure type: unspecified Qualified Code(s): I50.9 - Heart failure, unspecified (2) AMS (altered mental status) Altered mental status type: somnolence Qualified Code(s): R40.0 - Somnolence
--- NOTE | 2020-04-06 15:44 | CT Scan Report ---
CT angio head w con CLINICAL HISTORY: 79 years-old Male presenting with hemorrhagic CSF. TECHNIQUE: Multidetector CT angiography of the head was performed after the administration of intrave nous contrast. 3-D volumetric and/or maximum intensity projection (MIP) images were subsequently giacomo nstructed for review. IV contrast: 115 mL of Optiray 320. One or more dose lowering techniques were u sed consistent with the principles of ALARA (as low as reasonably achievable), including automatic ex posure control, mA or kV adjustment to individual patient size, and/or use of iterative reconstructio n. COMPARISON: Noncontrast CT head from 10/23/2019 and MRI brain from 04/05/2020. CT DOSE (mGy.cm): The estimated cumulative dose is 625.86 mGy.cm. FINDINGS: Loan Officer topogram: The patient is edentulous. Anterior circulation: Atherosclerosis of the cavernous segments of the internal carotid arteries. Int racranial portions of the internal carotid arteries patent to the level of the termini. Anterior cere bral arteries patent. Middle cerebral arteries patent. Anterior communicating artery patent. Posterior circulation: Left dominant vertebral artery. The right vertebral artery may terminate as th e right posterior inferior cerebellar artery. Intradural portions of the vertebral arteries patent. P osterior inferior cerebellar arteries patent. Basilar artery patent. Anterior inferior cerebellar art eries poorly visualized. Superior cerebellar arteries patent. Posterior cerebral arteries patent. Pos terior communicating arteries patent. Dural venous sinuses: Patent. Other: Enlargement of the ventricles most likely related to parenchymal volume loss. Chronic small ve ssel ischemic change of the periventricular white matter may also be present. Size of the ventricles has not significant change since prior head CT. Posttraumatic changes of the left maxillary sinus and left orbit. This is chronic. IMPRESSION: 1. No evidence of aneurysm, focal vessel occlusion, or significant stenosis of the intracranial brian tanner. ACT 112: Negative or not required by law. Electronically signed by: David Gonzalez M.D. 04/06/2020 3:43 PM
--- NOTE | 2020-04-06 15:51 | CT Scan Report ---
CT angio neck with con CLINICAL HISTORY: 79 years-old Male presenting with eval for hemorrhage. TECHNIQUE: Multidetector CT angiography of the neck was performed after the administration of intrave nous contrast. 3-D volumetric and/or maximum intensity projection (MIP) images were subsequently giacomo nstructed for review. IV contrast: 115 mL of Optiray 320. One or more dose lowering techniques were u sed consistent with the principles of ALARA (as low as reasonably achievable), including automatic ex posure control, mA or kV adjustment to individual patient size, and/or use of iterative reconstructio n. Stenosis measurements were based on NASCET-like criteria (distal lumen diameter as the denominator for stenosis measurement). COMPARISON: None. CT DOSE (mGy.cm): The estimated cumulative dose is 625.86. FINDINGS: Materials Scientist topogram: Unremarkable. Aortic arch: Atherosclerosis of the three-vessel aortic arch with patent origins of the branch vessel s. Innominate artery: Patent. Right subclavian artery: Patent. Right common carotid artery: Patent. Right internal and external carotid arteries: Mild calcified and noncalcified atherosclerotic plaque at the carotid bifurcation without significant stenosis of the external or internal carotid arteries. Left common carotid artery: Patent. Left internal and external carotid arteries: Mild calcified and noncalcified atherosclerotic plaque a t the carotid bifurcation without significant stenosis of the external or internal carotid arteries. Left subclavian artery: Patent. Vertebral arteries: Left dominant vertebral artery. Origins and courses of the bilateral vertebral ar teries patent. Other: Limited intracranial evaluation within normal limits. Soft tissues of the neck normal allowing for the phase of contrast. Degenerative changes of the cervical spine. Moderate central predominant superior endplate compression of T3, unchanged since 2014. Lung apices clear. IMPRESSION: 1. No evidence of dissection, focal vessel occlusion, or significant stenosis of the cervical arteri es. ACT 112: Negative or not required by law. Electronically signed by: David Gonzalez M.D. 04/06/2020 3:49 PM
[2020-04-06 16:18] LABS: BUN Creatinine Ratio 19.1 (10-20); Calcium 8.7 mg/dl (8.5-10.1); Creatinine Clr Calc Pharmacy 124.7 ml/min; Est GFR (African American) 110.1; Potassium 3.9 mmol/L (3.5-5.1)
[2020-04-06] MEDS ORDERED: SODIUM CHLORIDE 0.9% 500 ML IV SCH (17:30)
--- NOTE | 2020-04-06 17:52 | Billing Data ---
Date of Service April 06, 2020 Coding Level of Care Code 37241 Subseq Hosp Care Lvl 3
[2020-04-06 20:29] LABS: BUN Creatinine Ratio 19.9 (10-20); Calcium 8.7 mg/dl (8.5-10.1); Creatinine Clr Calc Pharmacy 107.2 ml/min; Est GFR (African American) 103.4; Est GFR (Non-African American) 89.2; Potassium 4.2 mmol/L (3.5-5.1)
[2020-04-06] MEDS ORDERED: SODIUM CHLORIDE 0.9% 1000ML 1,000 ML IV SCH (20:45)
[2020-04-06] MEDS: AMLODIPINE BESYLATE 5 MG TAB PO SCH (20:54)
[2020-04-06] MEDS: ARIPiprazole 10 MG TAB PO SCH (20:55)
[2020-04-06] MEDS: TRAZODONE HCL 50 MG TAB PO SCH (20:55)
[2020-04-06] MEDS: SIMVASTATIN 40 MG TAB PO SCH (20:58)
[2020-04-07] MEDS: ACYCLOVIR SOD IV SCH ×3 (03:17→20:05)
[2020-04-07] MEDS: DEXTROSE 5% IV SCH ×3 (03:17→20:05)
[2020-04-07] MEDS ORDERED: VANCOMYCIN TROUGH ONE (05:30)
[2020-04-07] MEDS: VANCOMYCIN HCL 1,500 MG in SODIUM CHLORIDE 0.9% 500 ML IV SCH ×2 (05:57→16:47)
[2020-04-07 07:15] LABS: Basophils # (auto) 0.01 K/uL (0-0.2); Basophils % (auto) 0.1 %; Eosinophils # (auto) 0.08 K/uL (0-0.5); Eosinophils % (auto) 1.2 %; Hematocrit (blood only) 33.7 % (42-52); Hemoglobin 12.2 g/dL (14.0-18.0); Immature Granulocytes # (auto) 0.01 K/uL (0.00-0.02); Immature Granulocytes % (auto) 0.1 %; Lymphocytes # (auto) 0.73 K/uL (1.2-3.4); Lymphocytes % (auto) 10.7 %; Mean Corpuscular Hemoglobin 29.9 pg (25-34); Mean Corpuscular Hgb Conc 36.2 g/dL (32-36); Mean Corpuscular Volume 82.6 fL (80-100); Monocytes # (auto) 0.85 K/uL (0.11-0.59); Monocytes % (auto) 12.5 %; Neutrophils # (auto) 5.14 K/uL (1.4-6.5); Neutrophils % (auto) 75.4 %; Platelet Count 86 K/uL (130-400); Platelet Estimate Decreased (Normal); Red Blood Count 4.08 M/uL (4.7-6.1); White Blood Count 6.82 K/uL (4.8-10.8)
[2020-04-07 09:23] LABS: BUN Creatinine Ratio 16.9 (10-20); Calcium 8.8 mg/dl (8.5-10.1); Creatinine Clr Calc Pharmacy 127.9 ml/min; Est GFR (African American) 110.8; Est GFR (Non-African American) 95.6; Potassium 3.7 mmol/L (3.5-5.1)
[2020-04-07] MEDS: INSULIN ASPART 100 UNITS/ML 3 ML PEN SC SCH ×4 (10:09→20:18)
[2020-04-07] MEDS: CEFEPIME 2,000 MG in SYRINGE 7.5 ML IV SCH ×3 (10:10→23:41)
[2020-04-07] MEDS: BusPIRone 15 MG TAB PO SCH ×2 (10:11→20:12)
[2020-04-07] MEDS: CALCIUM 600MG + VIT D 400 IU TAB PO SCH (10:12)
[2020-04-07] MEDS: VENLAFAXINE HCL XR 150 MG CAPXR PO SCH (10:13)
[2020-04-07] MEDS: MAGNESIUM OXIDE 400 MG TAB PO SCH (10:13)
[2020-04-07] MEDS: DOCUSATE SODIUM 100 MG CAP PO SCH ×2 (10:13→20:11)
[2020-04-07] MEDS: SODIUM CHLORIDE 1 GM TABLET PO SCH ×3 (10:14→20:15)
[2020-04-07] MEDS: FINASTERIDE 5 MG TAB PO SCH (10:14)
[2020-04-07] MEDS: GABAPENTIN 800 MG TAB PO SCH ×3 (10:14→20:13)
[2020-04-07] MEDS: ACETAMINOPHEN 500 MG TAB PO SCH ×2 (10:14→20:15)
[2020-04-07] MEDS: VITAMIN B COMPLEX TAB PO SCH (10:15)
[2020-04-07] MEDS: CHOLECALCIFEROL 1,000 UNITS 25 MCG TAB PO SCH (10:15)
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
--- NOTE | 2020-04-07 12:38 | Neurology Progress Note ---
Date of Service April 07, 2020 Assessment & Plan (1) Right-sided lacunar infarction: Small subacute appearing lacunar infarct within the right frontal lobe. Etiology probably small vessel thrombosis. Would continue with daily low-dose aspirin and Zocor. Attempt to gradually lower patient's blood pressure, systolic blood pressure goal 140 to 160 mmHg. PT/OT/speech therapy. (2) Intraventricular hemorrhage: This patient's brain MRI reveals layering debris within the occipital horns of the lateral ventricles. The differential diagnosis would include ventriculitis or intraventricular hemorrhage. There was a lack of susceptibility artifact on GRE sequences which is a bit more suggestive of ventriculitis on imaging grounds. However, this patient's lumbar puncture results are more suggestive of hemorrhage. Furthermore, this patient has a h istory of a significant fall that occurred earlier this month that may be responsible for this imaging finding. He does not have fever, headache, or other symptoms that would strongly suggest an infectious process. Nonetheless, he continues with broad-spectrum antimicrobial therapy and acyclovir for the time being which is reasonable. Continue to follow CSF cultures and await results of HSV testing. If patient's clinical status deteriorates consider obtaining a follow-up CT of the head. (3) Tardive dyskinesia: Mild to moderate tardive dyskinesia present this morning. Would continue to monitor this issue. He has been prescribed Cogentin in the past and most recently amantadine which I have held in the context of his current medical condition/altered mental status. I may consider restarting amantadine although there are newer medications for tardive dyskinesia such as Austedo which could be considered. These medications would likely be cost prohibitive, however. (4) AMS (altered mental status): Persistent alteration in mental status, likely multifactorial and in part related to polypharmacy, chronic hyponatremia, further confounded by the more recent discovery of a small amount of intraventricular hemorrhage versus ventriculitis on MRI. He does appear to have a "quiet encephalopathy" or possibly an evolving subcortical dementia. His imaging was not suggestive of normal pressure hydrocephalus. Would continue to monitor this patient's level of attention and mental status going forward. When medically stable may consider obtaining neuropsychological assessment. I will continue to follow this patient's progress. Please contact me if you have any additional concerns or questions. Admission and Anticipated Discharge Date Admission Date: April 03, 2020 Subjective Follow-up for altered mental status, intraventricular hemorrhage versus ventriculitis The patient continues to display some inattentiveness and slowed cognitive processing this morning. He also exhibits intermittent tongue thrusting and oral dyskinesias. He is an unreliable historian but denies headache, fever, or stiff neck. He does complain of feeling weak in general. I had reduced his dosage of gabapentin from 800 mg 4 times per day to 3 times per day and had discontinued his amantadine. The patient has also completed the requested brain MRI which revealed a possible small acute lacunar infarct within the right high frontal lobe as well as layering debris within the occipital horns of the lateral ventricles concerning for ventriculitis or possibly intraventricular hemorrhage although there was not obvious susceptibility artifact on GRE. I reviewed the images as well as the radiologist's interpretation of this test. The patient had a follow-up lumbar puncture and fluoroscopy. CSF was blood- tinged and did not clear. Opening pressure was normal. Gram stain and cultures unremarkable. Imaging and CSF findings probably consistent with hemorrhage rather than ventriculitis. He does have a history of a fall which occurred earlier this month resulting in multiple rib fractures and a contusion of the spleen. There was no sign of head injury at that time and a CT of the head was not obtained. Given the possibility of ventriculitis the patient was started on broad-spectrum antimicrobial therapy including cefepime, vancomycin, and acyclovir. This patient's case was also reviewed by neurosurgery at [facility]. There was not felt to be any role for neurosurgical intervention. The patient is also completed a follow-up CT angiogram of the head and neck which were unremarkable and without evidence of dissection, occlusion, thrombosis, or aneurysm. A recently completed echocardiogram revealed a normal left ventricular systolic function, no significant valvular disease, normal size for both the left and right atria, no cardioembolic source, no significant change compared with the previous echocardiogram done in April 2019. He has a sinus rhythm with first-degree AV block on several electrocardiograms. Review of Systems Constitutional: no fever and no chills Neurologic: as per Subjective / HPI and + confusion; no headache(s) Results & Data ([facility]) Vital Signs (Past 12 Hours) Vital Signs Temp Pulse Pulse Resp BP BP Pulse Ox 04/07/20 07:40 36.3 C L 84 18 189/81 H 94 04/07/20 07:38 84 18 97 04/07/20 04:00 36.3 C L 91 H 20 164/70 H 96 04/07/20 03:00 87 18 96 Exam (Neuro) Physical Exam: The patient is alert but inattentive. He is oriented to person and hospital, not to the day of the week. He exhibits slowed processing speed. He is able to name objects and repeat phrases and has a normal comprehension of vocabulary. Visual caldwell full to confrontation. Visual acuity normal. Pupils equal round reactive to light and accommodation. Eye movements normal. There is no facial droop or weakness. Patient exhibits intermittent tongue thrusting and perioral dyskinesias. Movements are generally slow. There is no pronator drift. He is able to perform [id number] with both the left and right hand but does so slowly. He is able to grasp with both hands. He has antigravity power for both lower limbs. He has a mild bilateral upper extremity resting, postural and action tremor. Does not appear to have a pill-rolling resting tremor. Coding Level of Care Code 76895 Subseq Hosp Care Lvl 3 Diagnoses Right-sided lacunar infarction I63.81 Intraventricular hemorrhage I61.5 Tardive dyskinesia G24.01 AMS (altered mental status) R40.0 Altered mental status type: somnolence (1) AMS (altered mental status) Altered mental status type: somnolence Qualified Code(s): R40.0 - Somnolence
--- NOTE | 2020-04-07 13:46 | Pharmacy Report ---
Pharmacy Abx Dose Short Note - Date of Service April 07, 2020 - Assessment & Plan Assessment 79 year old M ordered empiric VANCOMYCIN + CEFEPIME Abx to be continued an additional [address] Heart Plan Vancomycin * Trough level of 14.5 mcg/mL is subtherapeutic * Change to 1500 mg IV every 10 hours * Goal trough: 15 to 20 mcg/mL * Trough ordered for: 04/08 @1130 Pharmacy will continue to follow and will adjust dose/frequency as necessary. Thank you.
--- NOTE | 2020-04-07 15:31 | Family Medicine Progress Note ---
Date of Service April 07, 2020 Assessment & Plan (1) AMS (altered mental status): 79-year-old male was admitted on 03 Apr 2020 via EMS (from [facility]) for confusion and hyponatremia. Altered mental status, possible metabolic encephalopathy, right frontal lobe lacunar infarct: Background details are unclear. Suspect this is multifactorial in origin to include hyponatremia, polypharmacy, recent CVA, and/or WEATHER REPORTER infectious process. See neuro notes. Workup thus far positive for right frontal lobe infarct (timing unclear, ? prior fall) and questionable ventriculitis vs intraventricular blood. No role for surgery. 22May CTA head and neck are non-acute. 22May LP noted evidence of bleeding but questionable if any infection. CSF HSV labs and culture are pending. - 21May started empiric vancomycin and cefepime, 22May started empiric acyclovir. Will continue both until labs back. Hyponatremia: PMH same since perhaps January 2019. Admit sodium 125, mostly stable around that level. Urine testing initially suggestive of hypovolemia, though no lasting improvement with IVF. On fluid restriction and salt tabs 1 gram BID. - Nephrology consulted, see related note. Suspect SIADH. Started Lasix 20 mg PO BID for free water excretion. Increase NaCl to 2 grams PO BID. Taper SSRI to lowest dose vs other therapy. May need chest CT. --- Will decrease Effexor XR from 300 to 225 mg daily. Urinary incontinence: Has ongoing urinary incontinence. Daughter says this is a relatively new finding. UCx grew Alpha strep. Present coverage with antibiotics as above. Hypertension: PMH same. Kept home amlodipine, held home spironolactone and Lasix. On hydralazine prn. Goal SBP around 140-160. Could also increase his amlodipine if needed. Monitoring. Starting Lasix 20 mg p.o. twice daily Second degree Type 1 AV block: Seen on telemetry on afternoon of 19May with HR as low as 30s. Asymptomatic, no noted pauses. See cardiology note, whom did not recommend immediate intervention. No noted rhythm changes when he was standing/moving with physical therapy. Longstanding sensory ataxia /diabetic peripheral neuropathy, recent fall and left rib fractures: Holding opiates due to AMS. On scheduled Tylenol. Elevated alk phos: Admit AP 173, stable around 190. 19May abdominal u/s noted cholelithiasis without evidence of cholecystitis and a cirrhotic liver morphology. Non-tender abdomen. Remaining LFTs okay. Monitor for now. Splenomegaly: Including a 6.8 cm heterogeneous focus on 19May u/s. May be post- traumatic from prior fall. Chronic thrombocytopenia: Admit platelets 116. Seen by hematology in 2018, noted thrombocytopenia likely related to Hep C (s/p blood transfusion). Trended down to 86. Monitoring. Ongoing medical issues: - Hyperlipidemia, ? CHF: Continue home Zocor. 20May TTE noted EF 55-60%, normal LVEF, no significant change since April 2019. Is on Lasix 10 mg at home. --- Started on Lasix 20 mg BID for hyponatremia as above. - Iron deficiency anemia: Admit Hb 12.5 (MCV 83), stable. No evidence of acute bleeding. Suspect anemia of chronic inflammation as well. - Diabetes type 2: March 2020 HbA1c 6.1. Held home glargine, aspart, and metformin. Held home aspirin due to blood in CSF. --- Placed on insulin sliding scale. - Mixed restrictive and obstructive lung disease, chronic hypoxic resp. failure: Is on 2-3 L NC oxygen at home (though not requiring it as inpatient). Sees Dr. Tomas of pulmonology as outpatient. Continue home albuterol prn. - Chronic kidney disease: Creatinine around 0.7 as inpatient. - Mild tardive dyskinesia: Thought to be related to home Abilify. Follows with psychiatry as an outpatient. --- Per neurology, his home gabapentin dosing was decreased from QID to TID and his home amantadine was discontinued. - Alcoholic and compensated hepatitis C cirrhosis: Alcohol cessation in 2007. Previously followed by [facility]. Normal LFTs. - Opiate-associated constipation: Tapentadol BID was stopped on last discharge and swapped with new oxycodone. --- Held home bisacodyl and miralax. Continue home docusate. - Obstructive sleep apnea: Reportedly wears BiPAP intermittently. Ordered for inpatient. - Microscopic hematuria: On prior discharge, plan was for outpatient cystoscopy with urology. No UA RBCs seen on this admit. - BPH: Continue home finasteride and silodosin. - Depression, anxiety: Continue home buspirone and trazodone. --- Lowered Effexor due to hyponatremia. Consider lowering/stopping trazodone as well. Code status: Full code. Diet: DM2. Fluid restrict to 2000 mL/day. DVT prophy: Holding lovenox for now. SCDs. PT/OT: PT noted he stands with maximum assistance. Leans to the left when standing. Disbo: Admitted to med surg tele. Daughter is Niyah ([phone]), lives in [place]. Provided update this afternoon (23May). Ordered COVID testing in case of back to rehab (not due to symptoms). See case management notes. (2) Hyponatremia: (3) Hypertension: (4) Elevated alkaline phosphatase level: (5) Cholelithiasis: (6) Iron deficiency anemia: (7) Hyperlipidemia: (8) Diabetes mellitus: (9) Diabetic peripheral neuropathy: (10) Mixed restrictive and obstructive lung disease: (11) Chronic kidney disease, stage II (mild): (12) CHF (congestive heart failure): (13) Tardive dyskinesia: (14) Cirrhosis, alcoholic: (15) Compensated HCV cirrhosis: (16) Constipation due to pain medication: (17) TERI (obstructive sleep apnea): (18) Benign prostatic hyperplasia with urinary obstruction: (19) Anxiety: (20) Depression: (21) Second degree atrioventricular block, Mobitz (type) I: (22) Metabolic encephalopathy: (23) Right-sided lacunar infarction: Admission and Anticipated Discharge Date Admission Date: April 03, 2020 Supervising Physician Co-Signing Physician Notes I personally examined the patient and verified all massey points of history and e xam, discussed case, and agree with decision making with Dr. Heart with the following additions/exceptions: Patient about the same today although slightly more conversational than previously. He is again eating lunch while I am seeing him. He denies any headache or lightheadedness. Denies chest pain or shortness of breath. He does not know exactly where he is, but after I explained to him that we suspect he has blood in his brain and a possible concussion, he reports "we will how did I get that?" I explained that it was from his fall he had 2 weeks ago, and he stated "oh yeah, I remember that!" Stable from previous Vitals reviewed Obese, NAD, alert awake Anicteric sclerae Regular rhythm and rate no murmur Clear to auscultation bilaterally, no wheezes crackles or rhonchi Abdomen positive bowel sounds soft, nontender nondistended Extremities no edema Skin no rashes Neuro-moving all extremities, still slightly confused but improved from previous Laboratory values reviewed CSF cultures remain with no growth 79-year-old male here with history as above with altered mental status and hyponatremia, now with possible acute frontal lobe CVA and ventriculitis vs old blood from previous trauma and concussion as causes of his encephalopathy -also developed a Mobitz type I heart block that was asymptomatic with rates into the 30s and 40s after admission which is intermittently persistent but asymptomatic Initially thought that altered mental status could be from hyponatremia which also is likely contributing, however with abnormal findings on brain MRI-suspect old bleed from his fall from several weeks ago plus concussion, versus ventriculitis which seems less likely especially in that he has no fever or nuchal rigidity or signs of meningitis. LP performed with opening pressure 20 in lat decub position, high WBCs likely from blood, but with significant RBCs that did not clear with subsequent tube collections--> no evidence of HSV encephalitis on MRI but will cover with empiric acyclovir anyway and follow CSF cx and HSV PCR Unfortunately, ID no longer available here for consultation -continue empiric Vanco and Cefepime, acyclovir -continue to hold aspirin and Lovenox Also with questionable abnormal UA and urine culture with alpha strep not group D-current antibiotics cover for this anyway Consult cardiology for second-degree heart block appreciated-not concerning unless he does not appropriately increase his heart rate with ambulation. However his heart rate did increase with ambulation today so this should be fine. For acute lacunar infarct seen on MRI, continue aspirin and statin, blood pressure control, CTA head/neck normal, ECHO without thrombus, no Afib/flutter on tele Continued stay, eventually needs placement after further workup for Neuro issues as above after culture from CSF finalized and HSV returns Subjective Spoke with patient earlier this morning. He greeted me with miles and asked how I was doing. He asked if he can go home. He knew his name but did not know his birthday, the year, where he was, or why he was here. He did say once that he was not in the hospital. He denied any pain or complaints, but does not volunteer any information. On my leaving the room, he wished me a good day. Remarkably, just prior to speaking with him, I listened to him talk with the hospital kitchen on the phone for his lunch order. From his side of the conversation, he was able to answer the questions on what sort of food choices he would like. He answered with 1-2 words at a time but often will take a few seconds to think about his answer. Review of Systems Review of Systems: Per HPI as above. Physical Exam Physical Exam: GENERAL: Awake, alert, oriented to person only, appears co mfortable overall. Sitting in the bedside chair. HENT: Normocephalic, atraumatic. He is missing his lower dentures. CARDIAC: +S1S2 RRR, no murmurs. RESPIRATORY: Clear to auscultation. No wheezes or rales. Normal respiratory effort. Presently on room air. GI: +BS, soft, non-distended. No tenderness to palpation. No rebound or guarding. EXTREMITIES: No pedal edema or calf tenderness. His compression stockings are off. There is trace to 1+ bilateral pitting edema. NEURO: Exam remains limited by AMS. Follows commands. 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 Has frequent tongue protrusion. See related physical therapy notes. Results & Data ([facility]) Vital Signs (Past 12 Hours) Vital Signs Temp Pulse Pulse Resp BP BP Pulse Ox 04/07/20 13:43 36.7 C 60 18 164/68 H 92 04/07/20 08:00 87 04/07/20 07:40 36.3 C L 84 18 189/81 H 94 04/07/20 07:38 84 18 97 04/07/20 04:00 36.3 C L 91 H 20 164/70 H 96 Laboratory Results 04/07/20 04/07/20 04/07/20 Range/Units 11:44 07:30 05:26 WBC 6.82 (4.8-10.8) K/uL RBC 4.08 L (4.7-6.1) M/uL Hgb 12.2 L (14.0-18.0) g/dL Hct 33.7 L (42-52) % MCV 82.6 (80-100) fL MCH 29.9 (25-34) pg MCHC 36.2 H (32-36) g/dL Plt Count 86 L (130-400) K/uL Immature Gran % (Auto) 0.1 % Neut % (Auto) 75.4 % Lymph % (Auto) 10.7 % [place] % (Auto) 12.5 % Eos % (Auto) 1.2 % Baso % (Auto) 0.1 % Immature Gran # (Auto) 0.01 (0.00-0.02) K/uL Neut # (Auto) 5.14 (1.4-6.5) K/uL Lymph # (Auto) 0.73 L (1.2-3.4) K/uL [place] # (Auto) 0.85 H (0.11-0.59) K/uL Eos # (Auto) 0.08 (0-0.5) K/uL Baso # (Auto) 0.01 (0-0.2) K/uL Platelet Estimate Decreased L (Normal) Sodium (136-145) mmol/L Potassium (3.5-5.1) mmol/L Chloride (98-107) mmol/L Carbon Dioxide (21-32) mmol/L Anion Gap (3-11) BUN (7-18) mg/dl Creatinine (0.6-1.4) mg/dl Est Cr Clr Drug Dosing ml/min Est GFR ( Amer) Est GFR (Non-Af Amer) BUN/Creatinine Ratio (10-20) Glucose (70-99) mg/dl POC Glucose 231 H 139 H (70-99) mg/dl Calcium (8.5-10.1) mg/dl Vancomycin Trough (See Comment) mcg/ml 04/07/20 04/07/20 04/06/20 Range/Units 05:26 05:24 20:03 WBC (4.8-10.8) K/uL RBC (4.7-6.1) M/uL Hgb (14.0-18.0) g/dL Hct (42-52) % MCV (80-100) fL MCH (25-34) pg MCHC (32-36) g/dL Plt Count (130-400) K/uL Immature Gran % (Auto) % Neut % (Auto) % Lymph % (Auto) % [place] % (Auto) % Eos % (Auto) % Baso % (Auto) % Immature Gran # (Auto) (0.00-0.02) K/uL Neut # (Auto) (1.4-6.5) K/uL Lymph # (Auto) (1.2-3.4) K/uL [place] # (Auto) (0.11-0.59) K/uL Eos # (Auto) (0-0.5) K/uL Baso # (Auto) (0-0.2) K/uL Platelet Estimate (Normal) Sodium 125 L (136-145) mmol/L Potassium 3.7 (3.5-5.1) mmol/L Chloride 90 L (98-107) mmol/L Carbon Dioxide 27 (21-32) mmol/L Anion Gap 9.0 (3-11) BUN 10 (7-18) mg/dl Creatinine 0.60 (0.6-1.4) mg/dl Est Cr Clr Drug Dosing 127.9 ml/min Est GFR ( Amer) 110.8 Est GFR (Non-Af Amer) 95.6 BUN/Creatinine Ratio 16.9 (10-20) Glucose 148 H (70-99) mg/dl POC Glucose 187 H (70-99) mg/dl Calcium 8.8 (8.5-10.1) mg/dl Vancomycin Trough 14.5 (See Comment) mcg/ml 04/06/20 04/06/20 04/06/20 Range/Units 20:01 16:15 15:45 WBC (4.8-10.8) K/uL RBC (4.7-6.1) M/uL Hgb (14.0-18.0) g/dL Hct (42-52) % MCV (80-100) fL MCH (25-34) pg MCHC (32-36) g/dL Plt Count (130-400) K/uL Immature Gran % (Auto) % Neut % (Auto) % Lymph % (Auto) % [place] % (Auto) % Eos % (Auto) % Baso % (Auto) % Immature Gran # (Auto) (0.00-0.02) K/uL Neut # (Auto) (1.4-6.5) K/uL Lymph # (Auto) (1.2-3.4) K/uL [place] # (Auto) (0.11-0.59) K/uL Eos # (Auto) (0-0.5) K/uL Baso # (Auto) (0-0.2) K/uL Platelet Estimate (Normal) Sodium 124 L 123 L (136-145) mmol/L Potassium 4.2 3.9 (3.5-5.1) mmol/L Chloride 89 L 89 L (98-107) mmol/L Carbon Dioxide 25 24 (21-32) mmol/L Anion Gap 10.0 10.0 (3-11) BUN 14 12 (7-18) mg/dl Creatinine 0.71 0.61 (0.6-1.4) mg/dl Est Cr Clr Drug Dosing 107.2 124.7 ml/min Est GFR ( Amer) 103.4 110.1 Est GFR (Non-Af Amer) 89.2 95.0 BUN/Creatinine Ratio 19.9 19.1 (10-20) Glucose 171 H 158 H (70-99) mg/dl POC Glucose 189 H (70-99) mg/dl Calcium 8.7 8.7 (8.5-10.1) mg/dl Vancomycin Trough (See Comment) mcg/ml Medications Administered Current Inpatient Medications Acetaminophen (Tylenol) 1,000 mg PO BID ANTHONY Stop: 05/03/20 20:59 Last Admin: 04/07/20 10:14 Dose: 1,000 mg Documented by: Albuterol (Ventolin Hfa) 2 puffs INH Q4H PRN PRN Reason: Shortness Of Breath Or Wheezing Stop: 05/03/20 16:23 Amlodipine Besylate (Norvasc) 5 mg PO PM ANTHONY Stop: 05/03/20 20:59 Last Admin: 04/06/20 20:54 Dose: 5 mg Documented by: Aripiprazole (Abilify) 10 mg PO HS ANTHONY Stop: 05/03/20 20:59 Last Admin: 04/06/20 20:55 Dose: 10 mg Documented by: Aspirin (Ecotrin Ectab) 81 mg PO QAM ANTHONY Stop: 05/04/20 08:59 Last Admin: 04/05/20 08:48 Dose: 81 mg Documented by: Buspirone HCl (Buspar) 30 mg PO BID ANTHONY Stop: 05/03/20 20:59 Last Admin: 04/07/20 10:11 Dose: 30 mg Documented by: Dextrose (Dextrose 50%) 25 - 50 ml IV UD PRN; Protocol PRN Reason: Hypoglycemia Protocol Stop: 05/03/20 16:23 Docusate Sodium (Colace) 100 mg PO BID [facility] Stop: 05/03/20 20:59 Last Admin: 04/07/20 10:13 Dose: 100 mg Documented by: Enoxaparin Sodium (Lovenox) 30 mg SQ Q24H ANTHONY Stop: 05/03/20 16:23 Last Admin: 04/04/20 20:45 Dose: 30 mg Documented by: Finasteride (Proscar) 5 mg PO QAM ANTHONY Stop: 05/04/20 08:59 Last Admin: 04/07/20 10:14 Dose: 5 mg Documented by: Fluticasone Propionate (Flonase) 1 sprays NA DAILY PRN PRN Reason: Nasal Congestion Stop: 05/03/20 16:23 Furosemide (Lasix) 20 mg PO BID17 [facility] Stop: 05/07/20 16:59 Gabapentin (Neurontin) 800 mg PO TID [facility] Stop: 05/05/20 13:59 Last Admin: 04/07/20 13:35 Dose: 800 mg Documented by: Gadobutrol (Gadavist 65ml) 10 ml IV ONCE PRN PRN Reason: Interaction Checking Stop: 04/09/20 12:37 Last Admin: 04/05/20 12:38 Dose: 10 ml Documented by: Glucagon (Glucagen) 1 mg SQ UD PRN; Protocol PRN Reason: Hypoglycemia Protocol Stop: 05/03/20 16:23 Glucose (Dex4 Glucose) 4 - 8 tabs PO UD PRN; Protocol PRN Reason: Hypoglycemia Protocol Stop: 05/03/20 16:23 Glucose (Glucose 40%) 15 - 30 gm PO UD PRN; Protocol PRN Reason: Hypoglycemia Protocol Stop: 05/03/20 16:23 Hydralazine HCl (Hydralazine Hcl) 10 mg IV Q8H PRN PRN Reason: Hypertension Stop: 05/03/20 16:23 Cefepime HCl 2,000 mg/ Syringe 20 mls @ 5.5 mls/min IV Q8H [facility]; Protocol Stop: 04/09/20 15:59 Last Admin: 04/07/20 10:10 Dose: 5.5 mls/min Documented by: Acyclovir Sodium 825 mg/ (Dextrose) 266.5 mls @ 250 mls/hr IV Q8H [facility]; Protocol Stop: 04/08/20 11:59 Last Infusion: 04/07/20 12:52 Dose: Infused Documented by: Vancomycin HCl 1,500 mg/ (Sodium Chloride) 530 mls @ 200 mls/hr IV Q10H [facility]; Protocol Stop: 04/09/20 15:59 Insulin Aspart (Novolog Flexpen) 0 units SC ACHS [facility] Stop: 05/03/20 16:29 Last Admin: 04/07/20 13:36 Dose: 4 units Documented by: Magnesium Oxide (Mag-Ox) 400 mg PO QAM [facility] Stop: 05/04/20 08:59 Last Admin: 04/07/20 10:13 Dose: 400 mg Documented by: Miscellaneous (Order Awaiting Action) 1 ea N/A QS [facility] Stop: 05/04/20 00:00 Last Admin: 04/07/20 10:10 Dose: Not Given Documented by: Miscellaneous (Carbohydrates For Hypoglycemia) 15 - 30 gm PO UD PRN PRN Reason: Hypoglycemia Protocol Stop: 05/03/20 16:23 Miscellaneous Information (Consult) 1 ea N/A UD PRN PRN Reason: Consult Stop: 05/05/20 16:00 Multivitamins/Minerals (Caltrate Plus) [facility] [place] Stop: 05/04/20 08:59 Last Admin: 04/07/20 10:12 Dose: 1 tab Documented by: Simvastatin (Zocor) 40 mg PO QPM [facility] Stop: 05/03/20 20:59 Last Admin: 04/06/20 20:58 Dose: 40 mg Documented by: Sodium Chloride (Sodium Chloride) 2 gm PO BID [facility] Stop: 05/07/20 11:44 Last Admin: 04/07/20 13:35 Dose: 2 gm Documented by: Trazodone HCl (Desyrel) 150 mg PO HS [facility] Stop: 05/03/20 20:59 Last Admin: 04/06/20 20:55 Dose: 150 mg Documented by: Venlafaxine HCl (Effexor Extended Release) 225 mg PO QAM [facility] Stop: 05/08/20 08:59 Vitamin B Complex (Vitamin B Complex) 1 tab PO QAM [facility] Stop: 05/04/20 08:59 Last Admin: 04/07/20 10:15 Dose: 1 tab Documented by: Vitamin D (Vitamin D3) 2,000 units PO QAM [facility] Stop: 05/04/20 08:59 Last Admin: 04/07/20 10:15 Dose: 2,000 units Documented by: Resident Activity Tracking Resident Involvement: Resident Care Provided Care Provided: Adult Hospital Medicine (1) CHF (congestive heart failure) Heart failure chronicity: unspecified Heart failure type: unspecified Qualified Code(s): I50.9 - Heart failure, unspecified (2) AMS (altered mental status) Altered mental status type: somnolence Qualified Code(s): R40.0 - Somnolence
[2020-04-07] MEDS: FUROSEMIDE 20 MG TAB PO SCH (16:48)
--- NOTE | 2020-04-07 17:24 | Billing Data ---
Date of Service April 07, 2020 Coding Level of Care Code 53135 Subseq Hosp Care Lvl 3
[2020-04-07] MEDS: TRAZODONE HCL 50 MG TAB PO SCH (20:11)
[2020-04-07] MEDS: ARIPiprazole 10 MG TAB PO SCH (20:12)
[2020-04-07] MEDS: SIMVASTATIN 40 MG TAB PO SCH (20:16)
[2020-04-07] MEDS: AMLODIPINE BESYLATE 5 MG TAB PO SCH (20:17)
[2020-04-07 22:43] LABS: Cryptococcus neoformans/ga PCR Not Detected (NotDetected); Cytomegalovirus PCR Not Detected (NotDetected); Enterovirus PCR Not Detected (NotDetected); Escherichia coli K1 PCR Not Detected (NotDetected); Haemophilius influenzae PCR Not Detected (NotDetected); Herpes Simplex Virus 1 PCR Not Detected (NotDetected); Herpes Simplex Virus 2 PCR Not Detected (NotDetected); Human Herpes Virus 6 PCR Not Detected (NotDetected); Human Parechovirus PCR Not Detected (NotDetected); Listeria monocytogenes PCR Not Detected (NotDetected); Neisseria meningitidis PCR Not Detected (NotDetected); Streptococcus agalactiae PCR Not Detected (NotDetected); Streptococcus pneumoniae PCR Not Detected (NotDetected); Varicella Zoster Virus PCR Not Detected (NotDetected)
[2020-04-08] MEDS: VANCOMYCIN HCL 1,500 MG in SODIUM CHLORIDE 0.9% 500 ML IV SCH ×2 (02:53→14:45)
[2020-04-08] MEDS: DEXTROSE 5% IV SCH (02:59)
[2020-04-08] MEDS: ACYCLOVIR SOD IV SCH (02:59)
[2020-04-08 06:19] LABS: Hemoglobin 12.5 g/dL (14.0-18.0); Mean Corpuscular Hgb Conc 35.7 g/dL (32-36); Mean Corpuscular Volume 83.9 fL (80-100); Mean Platelet Volume 9.8 fL (7.4-10.4); Platelet Count 100 K/uL (130-400); RDW Coefficient of Variation 13.2 % (11.5-14.5); RDW Standard Deviation 39.6 fL (36.4-46.3); Red Blood Count 4.17 M/uL (4.7-6.1); White Blood Count 5.96 K/uL (4.8-10.8)
[2020-04-08 06:55] LABS: BUN Creatinine Ratio 14.1 (10-20); Calcium 8.8 mg/dl (8.5-10.1); Est GFR (African American) 108.6; Est GFR (Non-African American) 93.7; Potassium 3.4 mmol/L (3.5-5.1)
[2020-04-08] MEDS: CEFEPIME 2,000 MG in SYRINGE 7.5 ML IV SCH (07:39)
[2020-04-08] MEDS: CALCIUM 600MG + VIT D 400 IU TAB PO SCH (08:07)
[2020-04-08] MEDS: FINASTERIDE 5 MG TAB PO SCH (08:07)
[2020-04-08] MEDS: ACETAMINOPHEN 500 MG TAB PO SCH ×2 (08:07→20:56)
[2020-04-08] MEDS: GABAPENTIN 800 MG TAB PO SCH ×3 (08:07→20:57)
[2020-04-08] MEDS: VENLAFAXINE HCL XR 75 MG CAPXR PO SCH (08:07)
[2020-04-08] MEDS: BusPIRone 15 MG TAB PO SCH ×2 (08:07→20:59)
[2020-04-08] MEDS: FUROSEMIDE 20 MG TAB PO SCH ×2 (08:07→16:02)
[2020-04-08] MEDS: MAGNESIUM OXIDE 400 MG TAB PO SCH (08:07)
[2020-04-08] MEDS: SODIUM CHLORIDE 1 GM TABLET PO SCH ×2 (08:07→20:57)
[2020-04-08] MEDS: DOCUSATE SODIUM 100 MG CAP PO SCH ×2 (08:07→20:56)
[2020-04-08] MEDS: VITAMIN B COMPLEX TAB PO SCH (08:08)
[2020-04-08] MEDS: CHOLECALCIFEROL 1,000 UNITS 25 MCG TAB PO SCH (08:08)
[2020-04-08] MEDS: INSULIN ASPART 100 UNITS/ML 3 ML PEN SC SCH ×4 (08:41→21:01)
--- NOTE | 2020-04-08 11:23 | Nephrology Progress Note ---
Date of Service April 08, 2020 Assessment & Plan (1) Hyponatremia: Hypoosmolar hyponatremia, patient is clinically euvolemic. No evidence of thyroid, adrenal or significant renal insufficiency at this time. Urine osmolality was inappropriately elevated at the time of admission suggesting SIADH. Patient has a significant h/o tobacco use w/ COPD but CXR was negative for infiltrate/mass lesion. Review of medical record shows that hyponatremia has been a chronic finding over the last year. Serum sodium has been 125 - 130 mmol/L since 02/01. Doubt that chronic, mild hyponatremia is the predominant cause of his acute MS changes. Other etiologies need to be evaluated. Agree that SSRI therapy may be contributing to low sodium level. Serum sodium is gradually correcting with NaCl administration and use of a loop diuretic. Recommend the following: -- Continue low dose Furosemide to force free water excretion -- Continue NaCl 2g po BID -- Monitor daily PRP -- Taper SSRI to lowest effective dose or substitute alternative therapy (2) Hypertension: -- Blood pressure remains elevated. If tighter control desired, recommend increasing Amlodipine to 7.5 mg daily Admission and Anticipated Discharge Date Admission Date: April 03, 2020 Subjective Mr. Page was seen & examined in his hospital room this morning. He was seated in a chair and in NAD. He was oriented to self only but able to follow simple commands. Mr. Page reports that he is tolerating NaCl and furosemide therapy without side effect Review of Systems Constitutional: + weakness; no fever Eyes: no worsening vision and no problem reported Ear, Nose, Mouth, Throat: no problem reported Respiratory: no cough and no dyspnea Cardiovascular: no chest pain, no palpitations and no edema Gastrointestinal: no abdominal pain, no nausea, no vomiting and no diarrhea/loose stools Genitourinary: no dysuria, no urinary hesitancy and no hematuria Musculoskeletal: no back pain Integumentary: no rash Physical Exam Constitutional: + ill appearing; not in distress Eyes: PERRL ENMT: external ear and nose normal, oropharynx normal Neck: trachea midline, no thyromegaly Respiratory: normal respiratory effort, lungs clear to auscultation Cardiovascular: RRR, no murmur, no edema Gastrointestinal (Abdomen): normal bowel sounds, soft, nontender, no hepatosplenomegaly Musculoskeletal: Extremities: no cyanosis Skin: no rashes, warm and dry Neurologic: awake (oriented to self only) Results & Data ([facility]) Vital Signs (Past 12 Hours) Vital Signs Temp Pulse Pulse Resp BP Pulse Ox 04/08/20 07:24 36.6 C 84 20 174/77 H 96 04/08/20 05:17 156/71 H 04/08/20 03:28 86 16 94 04/08/20 03:00 36.5 C 79 20 183/80 H 96 04/08/20 01:07 80 Laboratory Results Laboratory Tests 04/08/20 04/08/20 05:44 05:44 WBC 5.96 Hgb 12.5 L Hct 35.0 L Plt Count 100 L Sodium 133 L D Potassium 3.4 L Chloride 96 L Carbon Dioxide 27 Glucose 136 H PG Care Time/CCT Total # of Minutes Spent Total Time Spent with Patient: Total time spent is greater than 50% in coordination of care (as documented) at patient's floor/unit and/or counseling patient: Coding Level of Care Code 19998 Subseq Hosp Care Lvl 3 Diagnoses Hyponatremia E87.1 Hypertension I10
[2020-04-08] MEDS ORDERED: VANCOMYCIN TROUGH ONE (11:30)
--- NOTE | 2020-04-08 12:41 | Pharmacy Report ---
Pharmacy Abx Dose Short Note - Date of Service April 08, 2020 - Assessment & Plan Assessment Assessment 79 year old M ordered empiric VANCOMYCIN + CEFEPIME Abx to be continued empirically per Dr. Heart Plan Vancomycin * Trough level of 20.8 mcg/mL is supratherapeutic * Change to 1500 mg IV every 12 hours * Goal trough: 15 to 20 mcg/mL * Trough will be ordered appropriately if antibiotic is to be continued Pharmacy will continue to follow and will adjust dose/frequency as necessary. Thank you.
[2020-04-08] MEDS ORDERED: VANCOMYCIN HCL 1,500 MG in SODIUM CHLORIDE 0.9% 500 ML IV SCH (14:00)
[2020-04-08 14:23] LABS: Calcium 8.9 mg/dl (8.5-10.1); Creatinine Clr Calc Pharmacy 90.4 ml/min; Est GFR (African American) 96.1; Est GFR (Non-African American) 82.9; Potassium 4.1 mmol/L (3.5-5.1)
--- NOTE | 2020-04-08 17:56 | Family Medicine Progress Note ---
Date of Service April 08, 2020 Assessment & Plan (1) AMS (altered mental status): 79-year-old male was admitted on 03 Apr 2020 via EMS (from [facility]) for confusion and hyponatremia. Altered mental status, possible metabolic encephalopathy, right frontal lobe lacunar infarct: Suspect this is multifactorial in origin to include hyponatremia, polypharmacy, recent CVA, and concussive symptoms. See neuro notes. Workup thus far positive for right frontal lobe infarct (timing unclear, ? from prior fall) and intraventricular blood. Do not suspect ventriculitis given no evidence of infection by exam or labs thus far. No role for surgery. 22May CTA head and neck are non-acute. 22May LP noted evidence of bleeding. [facility] CSF PCR testing was negative. CSF culture with NGTD. 24May stopped empiric vancomycin + cefepime (received four days tx) and empiric acyclovir (received three days tx). Hyponatremia: PMH same since perhaps January 2019. Admit sodium 125, mostly stable around that level. Urine testing initially suggestive of hypovolemia, though no lasting improvement with IVF. See nephro notes. Suspect SIADH. On fluid restriction, Lasix 20 mg PO BID for free water excretion, NaCl 2 grams PO BID, and decreased home Effexor XR from 300 to 225 mg daily. Did note some Na improvement after these changes. May need chest CT vs further adjustment of his Effexor +/- trazodone. Urinary incontinence: Daughter says this is a relatively new finding. UCx grew Alpha strep. Should be covered by antibiotics he has already received. Hypertension: PMH same. Kept home amlodipine. Held home spironolactone and Lasix. On hydralazine prn. Goal SBP around 140-160. Could also increase his amlodipine to 7.5 mg daily if needed. Monitoring. Second degree Type 1 AV block: Seen on telemetry on afternoon of 19May with HR as low as 30s. Asymptomatic, no noted pauses. See cardiology note, whom did not recommend immediate intervention. No noted rhythm changes when he was standing/moving with physical therapy. Longstanding sensory ataxia / diabetic peripheral neuropathy, recent fall and left rib fractures: Holding opiates due to AMS. On scheduled Tylenol. Elevated alk phos: Admit AP 173, stable around 190. 19May abdominal u/s noted cholelithiasis without evidence of cholecystitis and a cirrhotic liver morphology. Non-tender abdomen. Remaining LFTs okay. Monitor for now. Splenomegaly: Including a 6.8 cm heterogeneous focus on 19May u/s. May be post- traumatic from prior fall. Chronic thrombocytopenia: Admit platelets 116. Seen by hematology in 2018, noted thrombocytopenia likely related to Hepatitis C (s/p blood transfusion). Trended as low as 86. Monitoring. Ongoing medical issues: - Hyperlipidemia, ? CHF: Continue home Zocor. 20May TTE noted EF 55-60%, normal LVSF, no significant change since April 2019. Is on Lasix 10 mg at home. --- Started on Lasix 20 mg BID for hyponatremia as above. - Iron deficiency anemia: Admit Hb 12.5 (MCV 83), stable. No evidence of acute bleeding. Suspect anemia of chronic inflammation as well. - Diabetes type 2: March 2020 HbA1c 6.1. Held home glargine, aspart, and metformin. Held home aspirin due to blood in CSF. --- Placed on insulin sliding scale. - Mixed restrictive and obstructive lung disease, chronic hypoxic resp. failure: Is on 2-3 L NC oxygen at home (though not requiring it as inpatient). Sees Dr. Tomas of pulmonology as outpatient. Continue home albuterol prn. - Chronic kidney disease: Cr around 0.7 as inpatient. - Mild tardive dyskinesia: Thought to be related to home Abilify. Follows with psychiatry as an outpatient. --- Per neurology, his home gabapentin dosing was decreased from QID to TID and his home amantadine was discontinued. - Alcoholic and compensated hepatitis C cirrhosis: Alcohol cessation in 2007. Previously followed by [facility]. Normal LFTs. - Opiate-associated constipation: Tapentadol BID was stopped on last discharge and swapped with new oxycodone. --- Held home bisacodyl and miralax. Continue home docusate. Held narcotics due to AMS. - Obstructive sleep apnea: Reportedly wears BiPAP intermittently. Ordered for inpatient. - Microscopic hematuria: On prior discharge, plan was for outpatient cystoscopy with urology. No UA RBCs seen on this admit. - BPH: Continue home finasteride and silodosin. - Depression, anxiety: Continue home buspirone and trazodone. --- Lowered Effexor due to hyponatremia. Consider lowering/stopping trazodone as well. Code status: Full code. Diet: DM2. Fluid restrict to 2000 mL/day. DVT prophy: Holding lovenox for now. SCDs. PT/OT: PT noted he stands with maximum assistance. Leans to the left when standing. Disbo: Admitted to med surg tele. Daughter is Niyah ([phone]), lives in [place]. Provided update this afternoon (23May). Ordered COVID testing in case of discharge to rehab (not due to symptoms). See case management notes. (2) Hyponatremia: (3) Hypertension: (4) Elevated alkaline phosphatase level: (5) Cholelithiasis: (6) Iron deficiency anemia: (7) Hyperlipidemia: (8) Diabetes mellitus: (9) Diabetic peripheral neuropathy: (10) Mixed restrictive and obstructive lung disease: (11) Chronic kidney disease, stage II (mild): (12) CHF (congestive heart failure): (13) Tardive dyskinesia: (14) Cirrhosis, alcoholic: (15) Compensated HCV cirrhosis: (16) Constipation due to pain medication: (17) TERI (obstructive sleep apnea): (18) Benign prostatic hyperplasia with urinary obstruction: (19) Anxiety: (20) Depression: (21) Second degree atrioventricular block, Mobitz (type) I: (22) Metabolic encephalopathy: (23) Right-sided lacunar infarction: Admission and Anticipated Discharge Date Admission Date: April 03, 2020 Supervising Physician Co-Signing Physician Notes I personally examined the patient and verified all massey points of history and exam, discussed case, and agree with decision making with Dr. Heart with the following additions/exceptions: Patient sitting in a chair today. Reports to me that he feels "lousy." He cannot explain why. He denies headache or pain. He does say "I want to get out of here." Vitals reviewed Obese, NAD, alert awake Anicteric sclerae Regular rhythm and rate no murmur Clear to auscultation bilaterally, no wheezes crackles or rhonchi Abdomen positive bowel sounds soft, nontender nondistended Extremities no edema Skin no rashes Neuro-moving all extremities, still slightly confused but improved from previo us, knows he is in the hospital but does not know the name of the hospital, but once told the name he smiles and says "I knew that." Laboratory values reviewed CSF cultures remain with no growth Bio fire of the CSF negative 79-year-old male here with history as above with altered mental status and hyponatremia, now with possible acute frontal lobe CVA and ventriculitis vs old blood from previous trauma and concussion as causes of his encephalopathy Ventriculitis now ruled out with negative CSF cultures, HSV encephalitis ruled out with negative HSV PCR Discontinue all antibiotics today -Continue to hold aspirin and all blood thinners - will need repeat imaging of the brain in a couple of weeks or sooner as needed acute changes -also developed a Mobitz type I heart block that was asymptomatic with rates into the 30s and 40s after admission which is intermittently persistent but asymptomatic Consult cardiology for second-degree heart block appreciated-not concerning unless he does not appropriately increase his heart rate with ambulation. However his heart rate did increase with ambulation today so this should be fine. For acute lacunar infarct seen on MRI, continue aspirin and statin, blood pressure control, CTA head/neck normal, ECHO without thrombus, no Afib/flutter on tele Continued stay, but slightly improved, infection of the [employer] is now ruled out Hyponatremia is improving Eventually needs placement hopefully in the next few days Subjective Spoke with patient earlier this morning. He was sitting in his bedside chair. Once again, he said hello. He does not volunteer any information. On questioning, he says that he is doing okay and that he has no pain or complaints. When I asked how his breakfast was, he said it was "excellent". I asked him where he was and he said he was in the hospital. He was unable to say which hospital or where it is located. I asked him why he was in the hospital and he thought about it, seeming confused. I asked him what the year was and he was unsure. I told him 2019. I then asked him when his birthday was, to which he responded "2019". I again spoke with patient's daughter on the phone this afternoon. We discussed updates on the patient's negative culture results and stop antibiotics. He has hyponatremia that improved but his mental status did not subsequently significantly improve. We may still end up adjusting some of his medications prior to hospital discharge in this regard. No present further plan for treatment of his alpha strep UTI. May still need to modify his amlodipine dosing. Continuing to monitor his periodic second-degree AV block. She asked about options for placement following hospital discharge. Her goal is to get him back into a facility where he can get maximum therapy. We discussed briefly that we here in the hospital rely heavily on physical therapy assessments. We will see what they continue to recommend upon discharge, i.e. acute rehab hospitalization vs SNF. Review of Systems Review of Systems: Per HPI as above. Physical Exam Physical Exam: GENERAL: Awake, alert, oriented to person and partially the location, appears comfortable overall. Sitting in the bedside chair. HENT: Normocephalic, atraumatic. CARDIAC: +S1S2 RRR, no murmurs. RESPIRATORY: Clear to auscultation. No wheezes or rales. Normal respiratory effort. Presently on room air. GI: +BS, soft, non-distended. No tenderness to palpation. No rebound or guarding. EXTREMITIES: No pedal edema or calf tenderness. His compression stockings are off. There is trace bilateral pitting edema. NEURO: Exam remains limited by AMS. Follows commands. Has some tongue protrusion. See related physical therapy notes. Results & Data ([facility]) Vital Signs (Past 12 Hours) Vital Signs Temp Pulse Pulse Resp BP Pulse Ox 04/08/20 16:00 99 H 04/08/20 15:25 36.8 C 97 H 19 138/79 96 04/08/20 11:00 36.7 C 94 H 135/75 94 04/08/20 07:24 36.6 C 84 20 174/77 H 96 Laboratory Results 04/08/20 04/08/20 04/08/20 Range/Units 16:55 13:54 11:37 WBC (4.8-10.8) K/uL RBC (4.7-6.1) M/uL Hgb (14.0-18.0) g/dL Hct (42-52) % MCV (80-100) fL MCH (25-34) pg MCHC (32-36) g/dL RDW Std Deviation (36.4-46.3) fL RDW Coeff of Ja (11.5-14.5) % Plt Count (130-400) K/uL MPV (7.4-10.4) fL Sodium 131 L (136-145) mmol/L Potassium 4.1 D (3.5-5.1) mmol/L Chloride 96 L (98-107) mmol/L Carbon Dioxide 30 (21-32) mmol/L Anion Gap 5.0 (3-11) BUN 11 (7-18) mg/dl Creatinine 0.85 (0.6-1.4) mg/dl Est Cr Clr Drug Dosing 90.4 ml/min Est GFR ( Amer) 96.1 Est GFR (Non-Af Amer) 82.9 BUN/Creatinine Ratio 13.0 (10-20) Glucose 218 H (70-99) mg/dl POC Glucose 196 H 210 H (70-99) mg/dl Calcium 8.9 (8.5-10.1) mg/dl Urine Osmolality (500-800) mOsm/kg CSF C.neoform/gat PCR (NotDetected) CSF CMV DNA (PCR) (NotDetected) CSF Enterovirus (PCR) (NotDetected) CSF E. coli K1 (PCR) (NotDetected) CSF H. influenzae (PCR) (NotDetected) CSF HSV I (PCR) (NotDetected) CSF HSV II (PCR) (NotDetected) CSF HHV 6 (PCR) (NotDetected) CSF L.monocytogenes PCR (NotDetected) CSF N. meningitidis PCR (NotDetected) CSF Parechovirus (PCR) (NotDetected) CSF S. agalactiae (PCR) (NotDetected) CSF S. pneumoniae (PCR) (NotDetected) CSF VZV DNA (PCR) (NotDetected) Vancomycin Trough (See Comment) mcg/ml 04/08/20 04/08/20 04/08/20 Range/Units 11:20 07:32 05:44 WBC (4.8-10.8) K/uL RBC (4.7-6.1) M/uL Hgb (14.0-18.0) g/dL Hct (42-52) % MCV (80-100) fL MCH (25-34) pg MCHC (32-36) g/dL RDW Std Deviation (36.4-46.3) fL RDW Coeff of Ja (11.5-14.5) % Plt Count (130-400) K/uL MPV (7.4-10.4) fL Sodium 133 L D (136-145) mmol/L Potassium 3.4 L (3.5-5.1) mmol/L Chloride 96 L (98-107) mmol/L Carbon Dioxide 27 (21-32) mmol/L Anion Gap 10.0 (3-11) BUN 9 (7-18) mg/dl Creatinine 0.63 (0.6-1.4) mg/dl Est Cr Clr Drug Dosing 122.0 ml/min Est GFR ( Amer) 108.6 Est GFR (Non-Af Amer) 93.7 BUN/Creatinine Ratio 14.1 (10-20) Glucose 136 H (70-99) mg/dl POC Glucose 148 H (70-99) mg/dl Calcium 8.8 (8.5-10.1) mg/dl Urine Osmolality (500-800) mOsm/kg CSF C.neoform/gat PCR (NotDetected) CSF CMV DNA (PCR) (NotDetected) CSF Enterovirus (PCR) (NotDetected) CSF E. coli K1 (PCR) (NotDetected) CSF H. influenzae (PCR) (NotDetected) CSF HSV I (PCR) (NotDetected) CSF HSV II (PCR) (NotDetected) CSF HHV 6 (PCR) (NotDetected) CSF L.monocytogenes PCR (NotDetected) CSF N. meningitidis PCR (NotDetected) CSF Parechovirus (PCR) (NotDetected) CSF S. agalactiae (PCR) (NotDetected) CSF S. pneumoniae (PCR) (NotDetected) CSF VZV DNA (PCR) (NotDetected) Vancomycin Trough 20.8 (See Comment) mcg/ml 04/08/20 04/07/20 04/07/20 Range/Units 05:44 21:40 20:09 WBC 5.96 (4.8-10.8) K/uL RBC 4.17 L (4.7-6.1) M/uL Hgb 12.5 L (14.0-18.0) g/dL Hct 35.0 L (42-52) % MCV 83.9 (80-100) fL MCH 30.0 (25-34) pg MCHC 35.7 (32-36) g/dL RDW Std Deviation 39.6 (36.4-46.3) fL RDW Coeff of Ja 13.2 (11.5-14.5) % Plt Count 100 L (130-400) K/uL MPV 9.8 (7.4-10.4) fL Sodium (136-145) mmol/L Potassium (3.5-5.1) mmol/L Chloride (98-107) mmol/L Carbon Dioxide (21-32) mmol/L Anion Gap (3-11) BUN (7-18) mg/dl Creatinine (0.6-1.4) mg/dl Est Cr Clr Drug Dosing ml/min Est GFR ( Amer) Est GFR (Non-Af Amer) BUN/Creatinine Ratio (10-20) Glucose (70-99) mg/dl POC Glucose 154 H (70-99) mg/dl Calcium (8.5-10.1) mg/dl Urine Osmolality 349 L (500-800) mOsm/kg CSF C.neoform/gat PCR (NotDetected) CSF CMV DNA (PCR) (NotDetected) CSF Enterovirus (PCR) (NotDetected) CSF E. coli K1 (PCR) (NotDetected) CSF H. influenzae (PCR) (NotDetected) CSF HSV I (PCR) (NotDetected) CSF HSV II (PCR) (NotDetected) CSF HHV 6 (PCR) (NotDetected) CSF L.monocytogenes PCR (NotDetected) CSF N. meningitidis PCR (NotDetected) CSF Parechovirus (PCR) (NotDetected) CSF S. agalactiae (PCR) (NotDetected) CSF S. pneumoniae (PCR) (NotDetected) CSF VZV DNA (PCR) (NotDetected) Vancomycin Trough (See Comment) mcg/ml 04/06/20 Range/Units 09:33 WBC (4.8-10.8) K/uL RBC (4.7-6.1) M/uL Hgb (14.0-18.0) g/dL Hct (42-52) % MCV (80-100) fL MCH (25-34) pg MCHC (32-36) g/dL RDW Std Deviation (36.4-46.3) fL RDW Coeff of Ja (11.5-14.5) % Plt Count (130-400) K/uL MPV (7.4-10.4) fL Sodium (136-145) mmol/L Potassium (3.5-5.1) mmol/L Chloride (98-107) mmol/L Carbon Dioxide (21-32) mmol/L Anion Gap (3-11) BUN (7-18) mg/dl Creatinine (0.6-1.4) mg/dl Est Cr Clr Drug Dosing ml/min Est GFR ( Amer) Est GFR (Non-Af Amer) BUN/Creatinine Ratio (10-20) Glucose (70-99) mg/dl POC Glucose (70-99) mg/dl Calcium (8.5-10.1) mg/dl Urine Osmolality (500-800) mOsm/kg CSF C.neoform/gat PCR Not Detected (NotDetected) CSF CMV DNA (PCR) Not Detected (NotDetected) CSF Enterovirus (PCR) Not Detected (NotDetected) CSF E. coli K1 (PCR) Not Detected (NotDetected) CSF H. influenzae (PCR) Not Detected (NotDetected) CSF HSV I (PCR) Not Detected (NotDetected) CSF HSV II (PCR) Not Detected (NotDetected) CSF HHV 6 (PCR) Not Detected (NotDetected) CSF L.monocytogenes PCR Not Detected (NotDetected) CSF N. meningitidis PCR Not Detected (NotDetected) CSF Parechovirus (PCR) Not Detected (NotDetected) CSF S. agalactiae (PCR) Not Detected (NotDetected) CSF S. pneumoniae (PCR) Not Detected (NotDetected) CSF VZV DNA (PCR) Not Detected (NotDetected) Vancomycin Trough (See Comment) mcg/ml Medications Administered Current Inpatient Medications Acetaminophen (Tylenol) 1,000 mg PO BID ANTHONY Stop: 05/03/20 20:59 Last Admin: 04/08/20 08:07 Dose: 1,000 mg Documented by: Albuterol (Ventolin Hfa) 2 puffs INH Q4H PRN PRN Reason: Shortness Of Breath Or Wheezing Stop: 05/03/20 16:23 Amlodipine Besylate (Norvasc) 5 mg PO PM ANTHONY Stop: 06/18/20 20:59 Last Admin: 04/07/20 20:17 Dose: 5 mg Documented by: Aripiprazole (Abilify) 10 mg PO HS [facility] Stop: 05/03/20 20:59 Last Admin: 04/07/20 20:12 Dose: 10 mg Documented by: Aspirin (Ecotrin Ectab) 81 mg PO QAM [facility] Stop: 05/04/20 08:59 Last Admin: 04/05/20 08:48 Dose: 81 mg Documented by: Buspirone HCl (Buspar) 30 mg PO BID [facility] Stop: 05/03/20 20:59 Last Admin: 04/08/20 08:07 Dose: 30 mg Documented by: Dextrose (Dextrose 50%) 25 - 50 ml IV UD PRN; Protocol PRN Reason: Hypoglycemia Protocol Stop: 05/03/20 16:23 Docusate Sodium (Colace) 100 mg PO BID [facility] Stop: 05/03/20 20:59 Last Admin: 04/08/20 08:07 Dose: 100 mg Documented by: Finasteride (Proscar) 5 mg PO QAOK [facility] [place] Stop: 05/04/20 08:59 Last Admin: 04/08/20 08:07 Dose: 5 mg Documented by: Fluticasone Propionate (Flonase) 1 sprays NA DAILY PRN PRN Reason: Nasal Congestion Stop: 05/03/20 16:23 Furosemide (Lasix) 20 mg PO BID17 [facility] Stop: 05/07/20 16:59 Last Admin: 04/08/20 16:02 Dose: 20 mg Documented by: Gabapentin (Neurontin) 800 mg PO TID [facility] Stop: 05/05/20 13:59 Last Admin: 04/08/20 13:59 Dose: 800 mg Documented by: Gadobutrol (Gadavist 65ml) 10 ml IV ONCE PRN PRN Reason: Interaction Checking Stop: 04/09/20 12:37 Last Admin: 04/05/20 12:38 Dose: 10 ml Documented by: Glucagon (Glucagen) 1 mg SQ UD PRN; Protocol PRN Reason: Hypoglycemia Protocol Stop: 05/03/20 16:23 Glucose (Dex4 Glucose) 4 - 8 tabs PO UD PRN; Protocol PRN Reason: Hypoglycemia Protocol Stop: 05/03/20 16:23 Glucose (Glucose 40%) 15 - 30 gm PO UD PRN; Protocol PRN Reason: Hypoglycemia Protocol Stop: 05/03/20 16:23 Hydralazine HCl (Hydralazine Hcl) 10 mg IV Q8H PRN PRN Reason: Hypertension Stop: 05/03/20 16:23 Insulin Aspart (Novolog Flexpen) 0 units SC ACHS [facility] Stop: 05/03/20 16:29 Last Admin: 04/08/20 17:03 Dose: 4 units Documented by: Magnesium Oxide (Mag-Ox) 400 mg PO QAM [facility] Stop: 05/04/20 08:59 Last Admin: 04/08/20 08:07 Dose: 400 mg Documented by: Miscellaneous (Order Awaiting Action) 1 ea N/A QS [facility] Stop: 05/04/20 00:00 Last Admin: 04/08/20 15:03 Dose: Not Given Documented by: Miscellaneous (Carbohydrates For Hypoglycemia) 15 - 30 gm PO UD PRN PRN Reason: Hypoglycemia Protocol Stop: 05/03/20 16:23 Multivitamins/Minerals (Caltrate Plus) 1 tab PO QAOK [facility] [place] Stop: 05/04/20 08:59 Last Admin: 04/08/20 08:07 Dose: 1 tab Documented by: Simvastatin (Zocor) 40 mg PO QPM [facility] Stop: 05/03/20 20:59 Last Admin: 04/07/20 20:16 Dose: 40 mg Documented by: Sodium Chloride (Sodium Chloride) 2 gm PO BID [facility] Stop: 05/07/20 11:44 Last Admin: 04/08/20 08:07 Dose: 2 gm Documented by: Trazodone HCl (Desyrel) 150 mg PO HS [facility] Stop: 05/03/20 20:59 Last Admin: 04/07/20 20:11 Dose: 150 mg Documented by: Venlafaxine HCl (Effexor Extended Release) 225 mg PO QAOK [facility] [place] Stop: 05/08/20 08:59 Last Admin: 04/08/20 08:07 Dose: 225 mg Documented by: Vitamin B Complex (Vitamin B Complex) 1 tab PO QAM [facility] Stop: 05/04/20 08:59 Last Admin: 04/08/20 08:08 Dose: 1 tab Documented by: Vitamin D (Vitamin D3) 2,000 units PO QAOK [facility] [place] Stop: 05/04/20 08:59 Last Admin: 04/08/20 08:08 Dose: 2,000 units Documented by: Resident Activity Tracking Resident Involvement: Resident Care Provided Care Provided: Adult Hospital Medicine (1) CHF (congestive heart failure) Heart failure chronicity: unspecified Heart failure type: unspecified Qualified Code(s): I50.9 - Heart failure, unspecified (2) AMS (altered mental status) Altered mental status type: somnolence Qualified Code(s): R40.0 - Somnolence
--- NOTE | 2020-04-08 20:12 | Billing Data ---
Date of Service April 08, 2020 Coding Level of Care Code 80414 Subseq Hosp Care Lvl 3
[2020-04-08] MEDS: ARIPiprazole 10 MG TAB PO SCH (20:56)
[2020-04-08] MEDS: AMLODIPINE BESYLATE 5 MG TAB PO SCH (20:56)
[2020-04-08] MEDS: SIMVASTATIN 40 MG TAB PO SCH (20:59)
[2020-04-08] MEDS: TRAZODONE HCL 50 MG TAB PO SCH (20:59)
[2020-04-09 07:53] LABS: BUN Creatinine Ratio 19.9 (10-20); Calcium 9.3 mg/dl (8.5-10.1); Creatinine Clr Calc Pharmacy 111.8 ml/min; Est GFR (African American) 105.3; Est GFR (Non-African American) 90.8; Potassium 3.6 mmol/L (3.5-5.1)
[2020-04-09] MEDS: INSULIN ASPART 100 UNITS/ML 3 ML PEN SC SCH ×4 (08:45→21:46)
[2020-04-09] MEDS: BusPIRone 15 MG TAB PO SCH ×2 (08:46→21:43)
[2020-04-09] MEDS: DOCUSATE SODIUM 100 MG CAP PO SCH ×2 (08:50→21:45)
[2020-04-09] MEDS: GABAPENTIN 800 MG TAB PO SCH ×3 (08:50→21:44)
[2020-04-09] MEDS: MAGNESIUM OXIDE 400 MG TAB PO SCH (08:50)
[2020-04-09] MEDS: CALCIUM 600MG + VIT D 400 IU TAB PO SCH (08:50)
[2020-04-09] MEDS: VENLAFAXINE HCL XR 75 MG CAPXR PO SCH (08:50)
[2020-04-09] MEDS: FUROSEMIDE 20 MG TAB PO SCH ×2 (08:50→17:15)
[2020-04-09] MEDS: SODIUM CHLORIDE 1 GM TABLET PO SCH ×2 (08:51→21:42)
[2020-04-09] MEDS: CHOLECALCIFEROL 1,000 UNITS 25 MCG TAB PO SCH (08:51)
[2020-04-09] MEDS: ACETAMINOPHEN 500 MG TAB PO SCH ×2 (08:51→21:44)
[2020-04-09] MEDS: FINASTERIDE 5 MG TAB PO SCH (08:51)
[2020-04-09] MEDS: VITAMIN B COMPLEX TAB PO SCH (08:51)
--- NOTE | 2020-04-09 09:53 | Nephrology Progress Note ---
Date of Service April 09, 2020 Assessment & Plan (1) Hyponatremia: Hypoosmolar hyponatremia, patient is clinically euvolemic. No evidence of thyroid, adrenal or significant renal insufficiency at this time. Urine osmolality was inappropriately elevated at the time of admission suggesting SIADH. Patient has a significant h/o tobacco use w/ COPD but CXR was negative for infiltrate/mass lesion. Review of medical record shows that hyponatremia has been a chronic finding over the last year. Serum sodium has been 125 - 130 mmol/L since 02/01. Doubt that chronic, mild hyponatremia is the predominant cause of his acute MS changes. Other etiologies need to be evaluated. Agree that SSRI therapy may be contributing to low sodium level. Serum sodium is gradually correcting with NaCl administration and use of a loop diuretic. Recommend the following: -- Continue low dose Furosemide to force free water excretion. Patient will likely require a low dose loop diuretic [facility] -- Continue NaCl 2g po BID. If sodium corrects further, will reduce to NaCl 1g po BID tomorrow -- Monitor daily PRP -- Taper SSRI to lowest effective dose or substitute alternative therapy (2) Hypertension: -- Blood pressure remains mildly elevated. If tighter control desired, recommend increasing Amlodipine to 7.5 mg daily Admission and Anticipated Discharge Date Admission Date: April 03, 2020 Subjective Mr. Page was seen & examined in his hospital room this morning. He was oriented to self only but able to follow simple commands. Mr. Page reports that he is tolerating NaCl and furosemide therapy without side effect Review of Systems Constitutional: + weakness; no fever Eyes: no worsening vision and no problem reported Ear, Nose, Mouth, Throat: no problem reported Respiratory: no cough and no dyspnea Cardiovascular: no chest pain, no palpitations and no edema Gastrointestinal: no abdominal pain, no nausea, no vomiting and no diarrhea/loose stools Genitourinary: no dysuria, no urinary hesitancy and no hematuria Musculoskeletal: no back pain Integumentary: no rash Neurologic: no falls, no dizziness and no confusion Physical Exam Constitutional: + frail appearing; not in distress Eyes: PERRL ENMT: external ear and nose normal, oropharynx normal Neck: trachea midline, no thyromegaly Respiratory: normal respiratory effort, lungs clear to auscultation Cardiovascular: RRR, no murmur, no edema Gastrointestinal (Abdomen): normal bowel sounds, soft, nontender, no hepatosplenomegaly Musculoskeletal: Extremities: no cyanosis Skin: no rashes, warm and dry Neurologic: awake (oriented to self only) Results & Data ([facility]) Vital Signs (Past 12 Hours) Vital Signs Temp Pulse Pulse Resp BP Pulse Ox 04/09/20 08:08 36.5 C 76 18 150/66 H 94 04/09/20 07:32 80 04/09/20 04:03 87 18 95 04/09/20 03:26 36.5 C 85 19 155/92 H 96 04/09/20 02:45 80 04/08/20 22:59 36.5 C 65 20 154/62 H 93 Laboratory Results Laboratory Tests 04/08/20 04/09/20 05:44 07:08 WBC 5.96 Hgb 12.5 L Hct 35.0 L Plt Count 100 L Sodium 135 L Potassium 3.6 Chloride 97 L Carbon Dioxide 31 Creatinine 0.68 PG Care Time/CCT Total # of Minutes Spent Total Time Spent with Patient: Total time spent is greater than 50% in coordination of care (as documented) at patient's floor/unit and/or counseling patient: Coding Level of Care Code 15621 Subseq Hosp Care Lvl 3 Diagnoses Hyponatremia E87.1 Hypertension I10
[2020-04-09 15:15] LABS: HSV Type 1 DNA Not Detected (Not Detected); HSV Type 1&2 DNA Source CSF; HSV Type 2 DNA Not Detected (Not Detected)
--- NOTE | 2020-04-09 15:27 | Hospitalist Progress Note ---
Date of Service April 09, 2020 Assessment & Plan (1) AMS (altered mental status): 79-year-old male was admitted on 03 Apr 2020 via EMS (from [facility]) for AMS likely multifactorial in nature. Altered mental status, possible metabolic encephalopathy, right frontal lobe lac unar infarct: -Suspect this is multifactorial in origin to include hyponatremia, polypharmacy, recent CVA, and concussive symptoms. -Workup thus far positive for right frontal lobe infarct (timing unclear, ? from prior fall) and intraventricular blood. Do not suspect ventriculitis given no evidence of infection by exam or labs thus far. No role for surgery. -22May CTA head and neck are non-acute. -22May LP noted evidence of bleeding. -[facility] CSF PCR testing was negative. -CSF culture with NGTD. -24May stopped empiric vancomycin + cefepime (received four days tx) and empiric acyclovir (received three days tx). -currently improving Hyponatremia: -currently much improved, Na 135 this AM -Hx of this since perhaps January 2019. -Admit sodium 125 -Appreciate Nephrology recs: -Likely secondary to SIADH -continue 2g PO BID NaCl administration -continue Lasix 20mg PO BID for free water excretion -continue Effexor at decreased 225mg daily dose -continue fluid restriction -May need chest CT to look for occult malignancy causing SIADH vs further adjustment of his Effexor +/- trazodone. Urinary incontinence: -Daughter says this is a relatively new finding. -UCx grew Alpha strep. -Should be covered by antibiotics he has already received. Hypertension: -On home amlodipine 5mg qPM. Could also increase his amlodipine to 7.5 mg daily if needed. -Held home spironolactone and Lasix. -On hydralazine prn. Goal SBP around 140-160. Second degree Type 1 AV block: -Seen on telemetry on afternoon of 19May with HR as low as 30s. -Asymptomatic, no noted pauses. -Appreciate Cardiology recs: -did not recommend immediate intervention. -No noted rhythm changes when he was standing/moving with physical therapy. Longstanding sensory ataxia / diabetic peripheral neuropathy, recent fall and left rib fractures: -Holding opiates due to AMS. On scheduled Tylenol. Elevated alk phos: -Admit AP 173, stable around 190. -19May abdominal u/s noted cholelithiasis without evidence of cholecystitis and a cirrhotic liver morphology. -Non-tender abdomen. -Monitor for now. Splenomegaly: -Including a 6.8 cm heterogeneous focus on 19May u/s. May be post-traumatic from prior fall. Chronic thrombocytopenia: - Admit platelets 116. -Seen by hematology in 2018, noted thrombocytopenia likely related to Hepatitis C (s/p blood transfusion). -Trended as low as 86. Monitoring. Hyperlipidemia, ? CHF: -Continue home Zocor. -20May TTE noted EF 55-60%, normal LVSF, no significant change since April 2019. -Is on Lasix 10 mg at home. -Started on Lasix 20 mg BID for hyponatremia as above. Iron deficiency anemia: -Admit Hb 12.5 (MCV 83), stable. -No evidence of acute bleeding. -Suspect anemia of chronic inflammation as well. Diabetes type 2: -March 2020 HbA1c 6.1. -Held home glargine, aspart, and metformin. -Held home aspirin due to blood in CSF. -Placed on insulin sliding scale. Mixed restrictive and obstructive lung disease, chronic hypoxic resp. failure: -Is on 2-3 L NC oxygen at home (though not requiring it as inpatient). -Sees Dr. Tomas of pulmonology as outpatient. -Continue home albuterol prn. Chronic kidney disease: -Cr around 0.7 as inpatient. Mild tardive dyskinesia: -Thought to be related to home Abilify. -Follows with psychiatry as an outpatient. -Per neurology, his home gabapentin dosing was decreased from QID to TID and his home amantadine was discontinued. Alcoholic and compensated hepatitis C cirrhosis: -Alcohol cessation in 2007. -Previously followed by [facility]. -Normal LFTs. Opiate-associated constipation: -Tapentadol BID was stopped on last discharge and swapped with new oxycodone. -Held home bisacodyl and miralax. -Continue home docusate. - Held narcotics due to AMS. Obstructive sleep apnea: -Reportedly wears BiPAP intermittently. -Ordered for inpatient. Microscopic hematuria: -On prior discharge, plan was for outpatient cystoscopy with urology. No UA RBCs seen on this admit. BPH: -Continue home finasteride and silodosin. Depression, anxiety: -Continue home buspirone and trazodone. -Lowered Effexor due to hyponatremia. Consider lowering/stopping trazodone as well. Code status: Full code. Diet: DM2. Fluid restrict to 2000 mL/day. DVT prophy: Holding lovenox for now. SCDs. PT/OT: PT noted he stands with maximum assistance. Leans to the left when standing. Dispo: Admitted to med surg tele. Daughter is Niyah ([phone]), lives in [place]. Would kofi placement with [facility] (see CM note). COVID testing ordered in case of discharge to rehab (not due to symptoms). See case management notes. (2) Hyponatremia: (3) Hypertension: (4) Elevated alkaline phosphatase level: (5) Cholelithiasis: (6) Iron deficiency anemia: (7) Hyperlipidemia: (8) Diabetes mellitus: (9) Diabetic peripheral neuropathy: (10) Mixed restrictive and obstructive lung disease: (11) Chronic kidney disease, stage II (mild): (12) CHF (congestive heart failure): (13) Tardive dyskinesia: (14) Cirrhosis, alcoholic: (15) Compensated HCV cirrhosis: (16) Constipation due to pain medication: (17) TERI (obstructive sleep apnea): (18) Benign prostatic hyperplasia with urinary obstruction: (19) Anxiety: (20) Depression: (21) Second degree atrioventricular block, Mobitz (type) I: (22) Metabolic encephalopathy: (23) Right-sided lacunar infarction: Admission and Anticipated Discharge Date Admission Date: April 03, 2020 Supervising Physician Co-Signing Physician Notes Patient seen and examined with Dr. Lin. I agree with their exam findings, review of systems, assessment and plan. I have personally reviewed the lab work and imaging from today. patient is alert, oriented to place, thinks it is 1920, not sure of the month, does not know why he is here reviewed chart, work up thus far for altered mental status not very telling, perhaps low sodium but it is chronic, likely some degree of polypharmacy patient is eating well, denies any pain, dyspnea, fever, chest pressure discussed going to rehab once he is stable, he agrees resident reached out to daughter, no answer Exam: WDWN male, NAD lungs CTA bilaterally, normal effort heart regular S1/S2, no murmurs abdomen soft, ND, ND, + BS Alert, oriented to person and place only, no knowledge of recent events - Altered mental status likely a combination of low sodium and polypharmacy recommend eliminating or limiting narcotics, agree with decreasing Effexor as tolerated try to decrease Trazodone low sodium is chronic for at least a year so likely not contributing much initially some concern for ventriculitis, antibiotics stopped, stable off of them continue to provide supportive care, PT/OT, plan for rehab in a few days - SIADH: nephrology following continue sodium BID, may decrease dose if sodium remains stable continue low dose Lasix, likely should continue on discharge Subjective Pt alert and orientedx2 (self, and place). Knew the year but ddnt know month and date. Denies any pain currently but was somnolent at one point during the visit. Review of Systems Review of Systems: Unobtainable due to cognitive status Physical Exam Physical Exam: General: Alert, orientedx2. No acute distress, resting comfortably. Skin: No noted rashes or bruises Psych: pleasant Neuro: No gross deficits HEENT: NC/AT Chest: Nontender to palpation. CV: RRR, Normal s1, s2. No murmurs appreciated Resp: Breath sounds clear bilaterally, no increased effort of breathing Abdomen: BS+. Soft, nontender, nondistended. No guarding. No organomegaly appreciated. Extremities: some edema in lower extremities bilaterally. Results & Data Results & Data ([facility]) Vital Signs (Past 12 Hours) Vital Signs Temp Pulse Pulse Resp BP Pulse Ox 04/09/20 11:53 36.6 C 76 20 154/69 H 94 04/09/20 08:08 36.5 C 76 18 150/66 H 94 04/09/20 07:32 80 04/09/20 04:03 87 18 95 04/09/20 03:26 36.5 C 85 19 155/92 H 96 Resident Activity Tracking Resident Involvement: Resident Care Provided Care Provided: Adult Hospital Medicine (1) CHF (congestive heart failure) Heart failure chronicity: unspecified Heart failure type: unspecified Qualified Code(s): I50.9 - Heart failure, unspecified (2) AMS (altered mental status) Altered mental status type: somnolence Qualified Code(s): R40.0 - Somnolence
--- NOTE | 2020-04-09 21:34 | Billing Data ---
Date of Service April 09, 2020 Coding Level of Care Code 57244 Subseq Hosp Care Lvl 2
[2020-04-09] MEDS: ARIPiprazole 10 MG TAB PO SCH (21:42)
[2020-04-09] MEDS: SIMVASTATIN 40 MG TAB PO SCH (21:43)
[2020-04-09] MEDS: TRAZODONE HCL 50 MG TAB PO SCH (21:44)
[2020-04-09] MEDS: AMLODIPINE BESYLATE 5 MG TAB PO SCH (21:45)
[2020-04-10 07:55] LABS: BUN Creatinine Ratio 15.9 (10-20); Calcium 9.3 mg/dl (8.5-10.1); Creatinine Clr Calc Pharmacy 115.1 ml/min; Est GFR (African American) 106.6; Potassium 3.5 mmol/L (3.5-5.1)
[2020-04-10] MEDS: INSULIN ASPART 100 UNITS/ML 3 ML PEN SC SCH ×4 (08:48→20:46)
[2020-04-10] MEDS: MAGNESIUM OXIDE 400 MG TAB PO SCH (08:52)
[2020-04-10] MEDS: VENLAFAXINE HCL XR 75 MG CAPXR PO SCH (08:52)
[2020-04-10] MEDS: FUROSEMIDE 20 MG TAB PO SCH ×2 (08:52→16:32)
[2020-04-10] MEDS: DOCUSATE SODIUM 100 MG CAP PO SCH ×2 (08:52→20:45)
[2020-04-10] MEDS: CALCIUM 600MG + VIT D 400 IU TAB PO SCH (08:52)
[2020-04-10] MEDS: SODIUM CHLORIDE 1 GM TABLET PO SCH ×2 (08:52→20:43)
[2020-04-10] MEDS: GABAPENTIN 800 MG TAB PO SCH ×3 (08:52→20:43)
[2020-04-10] MEDS: BusPIRone 15 MG TAB PO SCH ×2 (08:52→20:44)
[2020-04-10] MEDS: FINASTERIDE 5 MG TAB PO SCH (08:52)
[2020-04-10] MEDS: ACETAMINOPHEN 500 MG TAB PO SCH ×2 (08:52→20:45)
[2020-04-10] MEDS: CHOLECALCIFEROL 1,000 UNITS 25 MCG TAB PO SCH (08:53)
[2020-04-10] MEDS: VITAMIN B COMPLEX TAB PO SCH (08:53)
--- NOTE | 2020-04-10 09:45 | Nephrology Progress Note ---
Date of Service April 10, 2020 Assessment & Plan (1) Hyponatremia: Hypoosmolar hyponatremia, patient is clinically euvolemic. No evidence of thyroid, adrenal or significant renal insufficiency at this time. Urine osmolality was inappropriately elevated at the time of admission suggesting SIADH. Patient has a significant h/o tobacco use w/ COPD but CXR was negative for infiltrate/mass lesion. Review of medical record shows that hyponatremia has been a chronic finding over the last year. Serum sodium has been 125 - 130 mmol/L since 02/01. Doubt that chronic, mild hyponatremia is the predominant cause of his acute MS changes. Other etiologies need to be evaluated. Agree that SSRI therapy may be contributing to low sodium level. Serum sodium is gradually correcting with NaCl administration and use of a loop diuretic. Recommend the following: -- Continue low dose Furosemide to force free water excretion. Patient will likely require a low dose loop diuretic senior care -- Continue NaCl 2g po BID. If sustained sodium > 135 mmol/L, will reduce to NaCl 1g po BID -- Monitor daily PRP -- Taper SSRI to lowest effective dose or substitute alternative therapy (2) Hypertension: -- Blood pressure remains mildly elevated. If tighter control desired, recommend increasing Amlodipine to 7.5 mg daily Admission and Anticipated Discharge Date Admission Date: April 03, 2020 Subjective Mr. Page was seen & examined in his hospital room this morning. He was oriented to self only but able to follow simple commands. Mr. Page reports that he is tolerating NaCl and furosemide therapy without side effect Review of Systems Constitutional: + weakness; no fever Eyes: no worsening vision and no problem reported Ear, Nose, Mouth, Throat: no problem reported Respiratory: no cough and no dyspnea Cardiovascular: no chest pain, no palpitations and no edema Gastrointestinal: no abdominal pain, no nausea, no vomiting and no diarrhea/loose stools Genitourinary: no dysuria, no urinary hesitancy and no hematuria Musculoskeletal: no back pain Integumentary: no rash Neurologic: no falls, no dizziness and no confusion Physical Exam Constitutional: + frail appearing; not in distress Eyes: PERRL ENMT: external ear and nose normal, oropharynx normal Neck: trachea midline, no thyromegaly Respiratory: normal respiratory effort, lungs clear to auscultation Cardiovascular: RRR, no murmur, no edema Gastrointestinal (Abdomen): normal bowel sounds, soft, nontender, no hepatosplenomegaly Musculoskeletal: Extremities: no cyanosis Skin: no rashes, warm and dry Neurologic: awake (oriented to self only) Results & Data ([facility]) Vital Signs (Past 12 Hours) Vital Signs Temp Pulse Pulse Resp BP Pulse Ox 04/10/20 07:07 36.8 C 77 20 154/70 H 92 04/10/20 03:24 36.7 C 93 H 18 163/70 H 95 04/10/20 02:07 99 H 04/09/20 23:21 36.7 C 81 20 155/70 H 94 Laboratory Results Laboratory Tests 04/08/20 04/10/20 05:44 07:06 WBC 5.96 Hgb 12.5 L Hct 35.0 L Plt Count 100 L Sodium 133 L Potassium 3.5 Chloride 97 L Carbon Dioxide 31 BUN 11 Creatinine 0.66 Glucose 126 H PG Care Time/CCT Total # of Minutes Spent Total Time Spent with Patient: Total time spent is greater than 50% in coordination of care (as documented) at patient's floor/unit and/or counseling patient: Coding Level of Care Code 26121 Subseq Hosp Care Lvl 3 Diagnoses Hyponatremia E87.1 Hypertension I10
--- NOTE | 2020-04-10 10:34 | Neurology Progress Note ---
Date of Service April 10, 2020 Assessment & Plan (1) Right-sided lacunar infarction: (2) Intraventricular hemorrhage: (3) Tardive dyskinesia: (4) AMS (altered mental status): This patient has a very small (tiny) subacute stroke within the right frontal lobe. The etiology is likely small vessel ischemic disease. Hypertension would be a risk factor. MRI of the brain revealed layering debris within the occipital horns of the lateral ventricles. Intraventricular hemorrhage was possible as was ventriculitis. LP did not show any specific infection but changes are consistent with a nonspecific viral process but creates some hemorrhage. There was a lack of susceptibility artifact on GRE sequences which is a bit more suggestive of ventriculitis on imaging grounds. Nevertheless, an old hemorrhage is possible. Apparently, the patient has a history of a significant fall that occurred earlier this month, but I am on certain of any specific head trauma. He never had fever, headache, or other symptoms that would strongly suggest an infectious process. This patient has very mild tardive dyskinesia of the lips and tongue, likely going on for months. He has been prescribed Cogentin in the past currently gets Abilify. This morning his affect is somewhat flat but he does not have acute confusion or encephalopathy present. I cannot entirely exclude mild underlying dementia. Recommendations: 1. Continue 81 milligram aspirin tablet daily. 2. Abilify certainly could result in tardive dyskinesia and its presence currently may not help. Nevertheless his dyskinesias mild and if he needs the Abilify I would continue it. He is also on buspirone and venlafaxine. 3. Continue simvastatin at current dose. 4. Increase activity as able with physical and occupational therapy. 5. Patient will follow up with Dr. Madrid as an outpatient. 6. From a neurologic standpoint, I have no further specific recommendations to make for this patient at this time Overall, I spent a total of 35 minutes with this case including review of records, review of MRI films, direct evaluation patient bedside, and discussing the case with the patient at bedside and Dr. Ortiz, including differential diagnosis and treatment options. Admission and Anticipated Discharge Date Admission Date: April 03, 2020 Subjective The patient feels well. He does not have pain, dizziness, or headache. He has some movements of his lip and tongue which he says has been there for months. MRI of the brain showed a very tiny right frontal infarct of a subacute nature. I reviewed these films. LP April 06 showed an elevated white count of 30 with 70 percent polys and 30 percent monos. There were 65,000 red cells seen. Glucose was normal and total protein was 298. Extensive viral and bacterial panel was unremarkable. CSF showed no growth. CT angiography of the head and neck were unremarkable and an echocardiogram was unremarkable. Blood pressure today is 154/70. Results & Data ([facility]) Vital Signs (Past 12 Hours) Vital Signs Temp Pulse Pulse Resp BP Pulse Ox 04/10/20 08:00 60 04/10/20 07:07 36.8 C 77 20 154/70 H 92 04/10/20 03:24 36.7 C 93 H 18 163/70 H 95 04/10/20 02:07 99 H 04/09/20 23:21 36.7 C 81 20 155/70 H 94 Exam (Neuro) Physical Exam: He is awake and alert. His speech is without significant a facial or dysarthria. Mood seems down and affect seems mildly flat but he is otherwise pleasant and cooperative following one-step commands very well. He has some spontaneous movements of the lips and tongue consistent with very mild tardive dyskinesia. Extraocular eye muscles are intact without nystagmus and there is no facial droop. With outstretched arms, there is no drift. There is no resting postural or action tremor. There is no ataxia with [id number] testing. Strength is symmetrical in the limbs with reasonable tone and no focal atrophy. PG Care Time/CCT Total # of Minutes Spent Total Time Spent with Patient: Total time spent is greater than 50% in coordination of care (as documented) at patient's floor/unit and/or counseling patient: Coding Level of Care Code 63794 Subseq Hosp Care Lvl 3 Diagnoses Right-sided lacunar infarction I63.81 Intraventricular hemorrhage I61.5 Tardive dyskinesia G24.01 AMS (altered mental status) R40.0 Altered mental status type: somnolence Time Spent (min) 35 (1) AMS (altered mental status) Altered mental status type: somnolence Qualified Code(s): R40.0 - Somnolence
--- NOTE | 2020-04-10 16:43 | Billing Data ---
Date of Service April 10, 2020 Coding Level of Care Code 36481 Subseq Hosp Care Lvl 2
--- NOTE | 2020-04-10 16:54 | Hospitalist Progress Note ---
Date of Service April 10, 2020 Assessment & Plan (1) AMS (altered mental status): 79-year-old male was admitted on 03 Apr 2020 via EMS (from [facility]) for AMS likely multifactorial in nature. Stable for discharge to SNF, referral made to [facility]. Altered mental status, possible metabolic encephalopathy, right frontal lobe lacunar infarct: -Suspect this is multifactorial in origin to include hyponatremia, polypharmacy, recent CVA, and concussive symptoms. -Workup thus far positive for right frontal lobe infarct (timing unclear, ? from prior fall) and intraventricular blood. Do not suspect ventriculitis given no evidence of infection by exam or labs thus far. No role for surgery. -22May CTA head and neck are non-acute. -22May LP noted evidence of bleeding. -Biofire CSF PCR testing was negative. -CSF culture with NGTD. -24May stopped empiric vancomycin + cefepime (received four days tx) and empiric acyclovir (received three days tx). -currently improving Hyponatremia: -currently much improved, Na 135 this AM -Hx of this since perhaps January 2019. -Admit sodium 125 -Appreciate Nephrology recs: -Likely secondary to SIADH -continue 2g PO BID NaCl administration -continue Lasix 20mg PO BID for free water excretion -continue Effexor at decreased 225mg daily dose -continue fluid restriction -May need chest CT to look for occult malignancy causing SIADH vs further adjustment of his Effexor +/- trazodone. Urinary incontinence: -Daughter says this is a relatively new finding. -UCx grew Alpha strep. -Should be covered by antibiotics he has already received. Hypertension: -On home amlodipine 5mg qPM. Could also increase his amlodipine to 7.5 mg daily if needed. -Held home spironolactone and Lasix. -On hydralazine prn. Goal SBP around 140-160. Second degree Type 1 AV block: -Seen on telemetry on afternoon of with HR as low as 30s. -Asymptomatic, no noted pauses. -Appreciate Cardiology recs: -did not recommend immediate intervention. -No noted rhythm changes when he was standing/moving with physical therapy. Longstanding sensory ataxia / diabetic peripheral neuropathy, recent fall and left rib fractures: -Holding opiates due to AMS. On scheduled Tylenol. Elevated alk phos: -Admit AP 173, stable around 190. -19May abdominal u/s noted cholelithiasis without evidence of cholecystitis and a cirrhotic liver morphology. -Non-tender abdomen. -Monitor for now. Splenomegaly: -Including a 6.8 cm heterogeneous focus on 19May u/s. May be post-traumatic from prior fall. Chronic thrombocytopenia: - Admit platelets 116. -Seen by hematology in 2018, noted thrombocytopenia likely related to Hepatitis C (s/p blood transfusion). -Trended as low as 86. Monitoring. Hyperlipidemia, ? CHF: -Continue home Zocor. -20May TTE noted EF 55-60%, normal LVSF, no significant change since April 2019. -Is on Lasix 10 mg at home. -Started on Lasix 20 mg BID for hyponatremia as above. Iron deficiency anemia: -Admit Hb 12.5 (MCV 83), stable. -No evidence of acute bleeding. -Suspect anemia of chronic inflammation as well. Diabetes type 2: -March 2020 HbA1c 6.1. -Held home glargine, aspart, and metformin. -Held home aspirin due to blood in CSF. -Placed on insulin sliding scale. Mixed restrictive and obstructive lung disease, chronic hypoxic resp. failure: -Is on 2-3 L NC oxygen at home (though not requiring it as inpatient). -Sees Dr. Tomas of pulmonology as outpatient. -Continue home albuterol prn. Chronic kidney disease: -Cr around 0.7 as inpatient. Mild tardive dyskinesia: -Thought to be related to home Abilify. -Follows with psychiatry as an outpatient. -Per neurology, his home gabapentin dosing was decreased from QID to TID and his home amantadine was discontinued. Alcoholic and compensated hepatitis C cirrhosis: -Alcohol cessation in 2007. -Previously followed by [facility]. -Normal LFTs. Opiate-associated constipation: -Tapentadol BID was stopped on last discharge and swapped with new oxycodone. -Held home bisacodyl and miralax. -Continue home docusate. - Held narcotics due to AMS. Obstructive sleep apnea: -Reportedly wears BiPAP intermittently. -Ordered for inpatient. Microscopic hematuria: -On prior discharge, plan was for outpatient cystoscopy with urology. No UA RBCs seen on this admit. BPH: -Continue home finasteride and silodosin. Depression, anxiety: -Continue home buspirone and trazodone. -Lowered Effexor due to hyponatremia. Consider lowering/stopping trazodone as well. Code status: Full code. Diet: DM2. Fluid restrict to 2000 mL/day. DVT prophy: Holding lovenox for now. SCDs. PT/OT: PT noted he stands with maximum assistance. Leans to the left when standing. Dispo: Admitted to med surg tele. Daughter is Niyah ([phone]), lives in [place]. Would like placement with [facility] (see CM note). COVID testing ordered in case of discharge to rehab (not due to symptoms). See case management notes. (2) Hyponatremia: (3) Hypertension: (4) Elevated alkaline phosphatase level: (5) Cholelithiasis: (6) Iron deficiency anemia: (7) Hyperlipidemia: (8) Diabetes mellitus: (9) Diabetic peripheral neuropathy: (10) Mixed restrictive and obstructive lung disease: (11) Chronic kidney disease, stage II (mild): (12) CHF (congestive heart failure): (13) Tardive dyskinesia: (14) Cirrhosis, alcoholic: (15) Compensated HCV cirrhosis: (16) Constipation due to pain medication: (17) TERI (obstructive sleep apnea): (18) Benign prostatic hyperplasia with urinary obstruction: (19) Anxiety: (20) Depression: (21) Second degree atrioventricular block, Mobitz (type) I: (22) Metabolic encephalopathy: (23) Right-sided lacunar infarction: Admission and Anticipated Discharge Date Admission Date: April 03, 2020 Supervising Physician Co-Signing Physician Notes I personally examined the patient and verified all massey points of history and exam, discussed case, and agree with decision making with Dr Ferris. no new complaints. no new issues. d/w neurology - input greatly appreciated. rehab placement pending - Altered mental status multifactorial - small bleed vs inflammation (see below) + polypharmacy + changing environments + ?degree of dementia at baseline? -blood in CSF unclear if leftover from viral encephalitis process or from small bleed from falls - but since clinically improving and stable//cultures negative//no signs of ongoing bleed, treatment for both would be supportive - SIADH: nephrology following sodium levels reasonable continue sodium BID, may decrease dose if sodium remains stable continue low dose Lasix, likely should continue on discharge Subjective Pt seen this AM resting comfortably in bed, pleasantly demented. Had breakfast tray with food and stated he was done eating. Unaware that it was morning as his response to good morning was "Is it morning already?" Review of Systems Review of Systems: Unobtainable due to cognitive status Physical Exam Physical Exam: General: Alert, orientedx1. No acute distress, resting comfortably. Skin: No noted rashes or bruises Psych: pleasant Neuro: No gross deficits HEENT: NC/AT Chest: Nontender to palpation. CV: RRR, Normal s1, s2. No murmurs appreciated Resp: Breath sounds clear bilaterally, no increased effort of breathing Abdomen: BS+. Soft, nontender, nondistended. No guarding. No organomegaly appreciated. Extremities: some edema in lower extremities bilaterally. Results & Data Results & Data ([facility]) Vital Signs (Past 12 Hours) Vital Signs Temp Pulse Pulse Resp BP Pulse Ox 04/10/20 15:46 36.8 C 83 20 136/75 95 04/10/20 12:13 36.7 C 83 20 132/69 97 04/10/20 08:00 60 04/10/20 07:07 36.8 C 77 20 154/70 H 92 Resident Activity Tracking Resident Involvement: Resident Care Provided Care Provided: Adult Hospital Medicine (1) CHF (congestive heart failure) Heart failure chronicity: unspecified Heart failure type: unspecified Qualified Code(s): I50.9 - Heart failure, unspecified (2) AMS (altered mental status) Altered mental status type: somnolence Qualified Code(s): R40.0 - Somnolence
[2020-04-10] MEDS: ARIPiprazole 10 MG TAB PO SCH (20:44)
[2020-04-10] MEDS: AMLODIPINE BESYLATE 5 MG TAB PO SCH (20:44)
[2020-04-10] MEDS: TRAZODONE HCL 50 MG TAB PO SCH (20:45)
[2020-04-10] MEDS: SIMVASTATIN 40 MG TAB PO SCH (20:46)
[2020-04-11 06:58] LABS: BUN Creatinine Ratio 17.7 (10-20); Creatinine Clr Calc Pharmacy 116.4 ml/min; Est GFR (African American) 106.6; Potassium 3.5 mmol/L (3.5-5.1)
[2020-04-11] MEDS: INSULIN ASPART 100 UNITS/ML 3 ML PEN SC SCH ×4 (08:26→20:23)
[2020-04-11] MEDS: GABAPENTIN 800 MG TAB PO SCH ×3 (08:26→20:21)
[2020-04-11] MEDS: FUROSEMIDE 20 MG TAB PO SCH ×2 (08:27→17:19)
[2020-04-11] MEDS: VENLAFAXINE HCL XR 75 MG CAPXR PO SCH (08:27)
[2020-04-11] MEDS: DOCUSATE SODIUM 100 MG CAP PO SCH ×2 (08:27→20:22)
[2020-04-11] MEDS: MAGNESIUM OXIDE 400 MG TAB PO SCH (08:27)
[2020-04-11] MEDS: SODIUM CHLORIDE 1 GM TABLET PO SCH ×2 (08:27→20:25)
[2020-04-11] MEDS: FINASTERIDE 5 MG TAB PO SCH (08:27)
[2020-04-11] MEDS: CALCIUM 600MG + VIT D 400 IU TAB PO SCH (08:27)
[2020-04-11] MEDS: CHOLECALCIFEROL 1,000 UNITS 25 MCG TAB PO SCH (08:27)
[2020-04-11] MEDS: VITAMIN B COMPLEX TAB PO SCH (08:27)
[2020-04-11] MEDS: ACETAMINOPHEN 500 MG TAB PO SCH ×2 (08:27→20:25)
[2020-04-11] MEDS: BusPIRone 15 MG TAB PO SCH ×2 (08:27→20:21)
--- NOTE | 2020-04-11 09:26 | Nephrology Progress Note ---
Date of Service April 11, 2020 Assessment & Plan (1) Hyponatremia: Hypoosmolar hyponatremia, patient is clinically euvolemic. No evidence of thyroid, adrenal or significant renal insufficiency at this time. Urine osmolality was inappropriately elevated at the time of admission suggesting SIADH. Patient has a significant h/o tobacco use w/ COPD but CXR was negative for infiltrate/mass lesion. Review of medical record shows that hyponatremia has been a chronic finding over the last year. Serum sodium has been 125 - 130 mmol/L since 02/01. Doubt that chronic, mild hyponatremia is the predominant cause of his acute MS changes. Other etiologies need to be evaluated. Agree that SSRI therapy may be contributing to low sodium level. Serum sodium is gradually correcting with NaCl administration and use of a loop diuretic. Recommend the following: -- Continue low dose Furosemide to force free water excretion. Patient will likely require a low dose loop diuretic fdc -- Continue NaCl 2g po BID. If sustained sodium > 135 mmol/L, will reduce to NaCl 1g po BID -- Monitor daily PRP -- Taper SSRI to lowest effective dose or substitute alternative therapy (2) Hypertension: -- Blood pressure remains mildly elevated. Will increase Amlodipine to 7.5 mg po each evening Admission and Anticipated Discharge Date Admission Date: April 03, 2020 Subjective Mr. Page was seen & examined in his hospital room this morning. He was oriented to self and place. Mr. Page reports that he is tolerating NaCl and furosemide therapy without side effect Review of Systems Constitutional: + weakness; no fever Eyes: no problem reported Ear, Nose, Mouth, Throat: no problem reported Respiratory: no cough and no dyspnea Cardiovascular: no chest pain, no palpitations and no edema Gastrointestinal: no abdominal pain, no nausea, no vomiting and no diarrhea/loose stools Genitourinary: no dysuria, no urinary hesitancy and no hematuria Musculoskeletal: no back pain Integumentary: no rash Physical Exam Constitutional: + frail appearing; not in distress Eyes: PERRL ENMT: external ear and nose normal, oropharynx normal Neck: trachea midline, no thyromegaly Respiratory: normal respiratory effort, lungs clear to auscultation Cardiovascular: RRR, no murmur, no edema Gastrointestinal (Abdomen): normal bowel sounds, soft, nontender, no hepatosplenomegaly Musculoskeletal: Extremities: no cyanosis Skin: no rashes, warm and dry Neurologic: awake (oriented to self only) Results & Data ([facility]) Vital Signs (Past 12 Hours) Vital Signs Temp Pulse Pulse Resp BP BP Pulse Ox 04/11/20 07:38 36.3 C L 78 18 164/71 H 97 04/11/20 07:22 75 04/11/20 04:54 36.2 C L 79 18 169/78 H 96 04/11/20 03:45 88 13 92 04/11/20 01:04 64 04/11/20 00:03 36.4 C L 88 18 187/78 H 97 04/10/20 22:14 85 18 93 Laboratory Results Laboratory Tests 04/11/20 06:16 Sodium 134 L Potassium 3.5 Chloride 98 Carbon Dioxide 31 BUN 12 Creatinine 0.66 Glucose 134 H PG Care Time/CCT Total # of Minutes Spent Total Time Spent with Patient: Total time spent is greater than 50% in coordinat ion of care (as documented) at patient's floor/unit and/or counseling patient: Coding Level of Care Code 65213 Subseq Hosp Care Lvl 3 Diagnoses Hyponatremia E87.1 Hypertension I10
--- NOTE | 2020-04-11 16:28 | Hospitalist Progress Note ---
Date of Service April 11, 2020 Assessment & Plan (1) AMS (altered mental status): 79-year-old male was admitted on 03 Apr 2020 via EMS (from [facility]) for AMS likely multifactorial in nature. Stable for discharge to SNF, referral made to [facility]. Altered mental status, possible metabolic encephalopathy, right frontal lobe lacunar infarct: -Suspect this is multifactorial in origin to include hyponatremia, polypharmacy, recent CVA, and concussive symptoms. -Workup thus far positive for right frontal lobe infarct (timing unclear, ? from prior fall) and intraventricular blood. Do not suspect ventriculitis given no evidence of infection by exam or labs thus far. No role for surgery. -22May CTA head and neck are non-acute. -22May LP noted evidence of bleeding. -Biofire CSF PCR testing was negative. -CSF culture with NGTD. -24May stopped empiric vancomycin + cefepime (received four days tx) and empiric acyclovir (received three days tx). -currently improving Hyponatremia: -currently much improved, Na in 130s recently -Hx of this since perhaps January 2019. -Admit sodium 125 -Appreciate Nephrology recs: -Likely secondary to SIADH -continue 2g PO BID NaCl administration -continue Lasix 20mg PO BID for free water excretion -continue Effexor at decreased 225mg daily dose -continue fluid restriction -May need chest CT to look for occult malignancy causing SIADH vs further adjustment of his Effexor +/- trazodone. Urinary incontinence: -Daughter says this is a relatively new finding. -UCx grew Alpha strep. -Should be covered by antibiotics he has already received. Hypertension: -On home amlodipine 5mg qPM. Could also increase his amlodipine to 7.5 mg daily if needed. -Held home spironolactone and Lasix. -On hydralazine prn. Goal SBP around 140-160. Second degree Type 1 AV block: -Seen on telemetry on afternoon of with HR as low as 30s. -Asymptomatic, no noted pauses. -Appreciate Cardiology recs: -did not recommend immediate intervention. -No noted rhythm changes when he was standing/moving with physical therapy. Longstanding sensory ataxia / diabetic peripheral neuropathy, recent fall and left rib fractures: -Holding opiates due to AMS. On scheduled Tylenol. Elevated alk phos: -Admit AP 173, stable around 190. -19May abdominal u/s noted cholelithiasis without evidence of cholecystitis and a cirrhotic liver morphology. -Non-tender abdomen. -Monitor for now. Splenomegaly: -Including a 6.8 cm heterogeneous focus on 19May u/s. May be post-traumatic from prior fall. Chronic thrombocytopenia: - Admit platelets 116. -Seen by hematology in 2018, noted thrombocytopenia likely related to Hepatitis C (s/p blood transfusion). -Trended as low as 86. Monitoring. Hyperlipidemia, ? CHF: -Continue home Zocor. -20May TTE noted EF 55-60%, normal LVSF, no significant change since April 2019. -Is on Lasix 10 mg at home. -Started on Lasix 20 mg BID for hyponatremia as above. Iron deficiency anemia: -Admit Hb 12.5 (MCV 83), stable. -No evidence of acute bleeding. -Suspect anemia of chronic inflammation as well. Diabetes type 2: -March 2020 HbA1c 6.1. -Held home glargine, aspart, and metformin. -Held home aspirin due to blood in CSF. -Placed on insulin sliding scale. Mixed restrictive and obstructive lung disease, chronic hypoxic resp. failure: -Is on 2-3 L NC oxygen at home (though not requiring it as inpatient). -Sees Dr. Tomas of pulmonology as outpatient. -Continue home albuterol prn. Chronic kidney disease: -Cr around 0.7 as inpatient. Mild tardive dyskinesia: -Thought to be related to home Abilify. -Follows with psychiatry as an outpatient. -Per neurology, his home gabapentin dosing was decreased from QID to TID and his home amantadine was discontinued. Alcoholic and compensated hepatitis C cirrhosis: -Alcohol cessation in 2007. -Previously followed by [facility]. -Normal LFTs. Opiate-associated constipation: -Tapentadol BID was stopped on last discharge and swapped with new oxycodone. -Held home bisacodyl and miralax. -Continue home docusate. - Held narcotics due to AMS. Obstructive sleep apnea: -Reportedly wears BiPAP intermittently. -Ordered for inpatient. Microscopic hematuria: -On prior discharge, plan was for outpatient cystoscopy with urology. No UA RBCs seen on this admit. BPH: -Continue home finasteride and silodosin. Depression, anxiety: -Continue home buspirone and trazodone. -Lowered Effexor due to hyponatremia. Consider lowering/stopping trazodone as well. Code status: Full code. Diet: DM2. Fluid restrict to 2000 mL/day. DVT prophy: Holding lovenox for now. SCDs. PT/OT: PT noted he stands with maximum assistance. Leans to the left when standing. Dispo: Admitted to med surg tele. Daughter is Niyah ([phone]), lives in [place]. Would like placement with [facility] (see CM note). COVID testing ordered in case of discharge to rehab (not due to symptoms). See case management notes. (2) Hyponatremia: (3) Hypertension: (4) Elevated alkaline phosphatase level: (5) Cholelithiasis: (6) Iron deficiency anemia: (7) Hyperlipidemia: (8) Diabetes mellitus: (9) Diabetic peripheral neuropathy: (10) Mixed restrictive and obstructive lung disease: (11) Chronic kidney disease, stage II (mild): (12) CHF (congestive heart failure): (13) Tardive dyskinesia: (14) Cirrhosis, alcoholic: (15) Compensated HCV cirrhosis: (16) Constipation due to pain medication: (17) TERI (obstructive sleep apnea): (18) Benign prostatic hyperplasia with urinary obstruction: (19) Anxiety: (20) Depression: (21) Second degree atrioventricular block, Mobitz (type) I: (22) Metabolic encephalopathy: (23) Right-sided lacunar infarction: Admission and Anticipated Discharge Date Admission Date: April 03, 2020 Supervising Physician Co-Signing Physician Notes I personally examined the patient and verified all massey points of history and exam, discussed case, and agree with decision making with Dr Ferris. no new complaints. no new issues. he is hoping to get rehab placement soon vitals noted nad heent nc at mmm breathing unlabored no accessory muscles good effort skin no rashes no pallor or icterus - Altered mental status multifactorial - small bleed vs inflammation (see below) + polypharmacy + changing environments + ?degree of dementia at baseline? does appear stable/improving - certainly safe/stable for rehab -blood in CSF unclear if leftover from viral encephalitis process or from small bleed from falls - but since clinically improving and stable//cultures negative//no signs of ongoing bleed, treatment for both would be supportive - clinically looks stable today - SIADH: nephrology following sodium levels reasonable overall, follow periodically continue sodium BID, may decrease dose if sodium remains stable continue low dose Lasix, likely should continue on discharge Subjective Seen this AM, AAOx2. Pleasant. Review of Systems Review of Systems: Unobtainable due to cognitive status Physical Exam Physical Exam: General: Alert, orientedx1. No acute distress, resting comfortably. Skin: No noted rashes or bruises Psych: pleasant Neuro: No gross deficits HEENT: NC/AT Chest: Nontender to palpation. CV: RRR, Normal s1, s2. No murmurs appreciated Resp: Breath sounds clear bilaterally, no increased effort of breathing Abdomen: BS+. Soft, nontender, nondistended. No guarding. No organomegaly appreciated. Extremities: Trace edema in lower extremities bilaterally. Results & Data Results & Data ([facility]) Vital Signs (Past 12 Hours) Vital Signs Temp Pulse Pulse Resp BP BP Pulse Ox 04/11/20 15:32 36.9 C 103 H 18 163/91 H 95 04/11/20 11:24 36.9 C 86 18 133/75 96 04/11/20 07:38 36.3 C L 78 18 164/71 H 97 04/11/20 07:22 75 04/11/20 04:54 36.2 C L 79 18 169/78 H 96 Resident Activity Tracking Resident Involvement: Resident Care Provided Care Provided: Adult Hospital Medicine (1) CHF (congestive heart failure) Heart failure chronicity: unspecified Heart failure type: unspecified Qualified Code(s): I50.9 - Heart failure, unspecified (2) AMS (altered mental status) Altered mental status type: somnolence Qualified Code(s): R40.0 - Somnolence
--- NOTE | 2020-04-11 18:00 | Billing Data ---
Date of Service April 11, 2020 Coding Level of Care Code 88361 Subseq Hosp Care Lvl 2
[2020-04-11] MEDS: ARIPiprazole 10 MG TAB PO SCH (20:21)
[2020-04-11] MEDS: TRAZODONE HCL 50 MG TAB PO SCH (20:22)
[2020-04-11] MEDS: AMLODIPINE BESYLATE 5 MG TAB PO SCH (20:22)
[2020-04-11] MEDS: SIMVASTATIN 40 MG TAB PO SCH (20:25)
[2020-04-12 07:32] LABS: BUN Creatinine Ratio 22.1 (10-20); Calcium 9.1 mg/dl (8.5-10.1); Creatinine Clr Calc Pharmacy 114.5 ml/min; Est GFR (African American) 105.9; Est GFR (Non-African American) 91.4; Potassium 3.2 mmol/L (3.5-5.1)
[2020-04-12] MEDS: BusPIRone 15 MG TAB PO SCH ×2 (08:10→20:49)
[2020-04-12] MEDS: VENLAFAXINE HCL XR 75 MG CAPXR PO SCH (08:11)
[2020-04-12] MEDS: FUROSEMIDE 20 MG TAB PO SCH ×2 (08:11→17:45)
[2020-04-12] MEDS: FINASTERIDE 5 MG TAB PO SCH (08:11)
[2020-04-12] MEDS: MAGNESIUM OXIDE 400 MG TAB PO SCH (08:12)
[2020-04-12] MEDS: CHOLECALCIFEROL 1,000 UNITS 25 MCG TAB PO SCH (08:12)
[2020-04-12] MEDS: CALCIUM 600MG + VIT D 400 IU TAB PO SCH (08:12)
[2020-04-12] MEDS: VITAMIN B COMPLEX TAB PO SCH (08:13)
[2020-04-12] MEDS: ACETAMINOPHEN 500 MG TAB PO SCH ×3 (08:14→20:49)
[2020-04-12] MEDS: SODIUM CHLORIDE 1 GM TABLET PO SCH ×2 (08:14→20:48)
[2020-04-12] MEDS: DOCUSATE SODIUM 100 MG CAP PO SCH ×2 (08:15→20:48)
[2020-04-12] MEDS: GABAPENTIN 800 MG TAB PO SCH ×3 (08:15→20:48)
[2020-04-12] MEDS: INSULIN ASPART 100 UNITS/ML 3 ML PEN SC SCH ×4 (08:18→20:46)
[2020-04-12] MEDS ORDERED: POTASSIUM CHLORIDE 20 MEQ TABCR PO STA (08:29)
--- NOTE | 2020-04-12 10:26 | Nephrology Progress Note ---
Date of Service April 12, 2020 Assessment & Plan (1) Hyponatremia: Hypoosmolar hyponatremia, patient is clinically euvolemic. No evidence of thyroid, adrenal or significant renal insufficiency at this time. Urine osmolality was inappropriately elevated at the time of admission suggesting SIADH. Patient has a significant h/o tobacco use w/ COPD but CXR was negative for infiltrate/mass lesion. Review of medical record shows that hyponatremia has been a chronic finding over the last year. Serum sodium has been 125 - 130 mmol/L since 02/01. Doubt that chronic, mild hyponatremia is the predominant cause of his acute MS changes. Other etiologies need to be evaluated. Agree that SSRI therapy may be contributing to low sodium level. Serum sodium is gradually correcting with NaCl administration and use of a loop diuretic. Recommend the following: -- Continue low dose Furosemide to force free water excretion. Patient will likely require a low dose loop diuretic senior care -- Continue NaCl 2g po BID. If sustained sodium > 135 mmol/L, will reduce to NaCl 1g po BID -- Monitor daily PRP -- Taper SSRI to lowest effective dose or substitute alternative therapy (2) Hypertension: -- Blood pressure remains mildly elevated. Will increase Amlodipine to 7.5 mg po each evening Admission and Anticipated Discharge Date Admission Date: April 03, 2020 Subjective Mr. Page was seen & examined in his hospital room this morning. He was oriented to self and place. He is tolerating NaCl without GI upset. Mr. Page reports that he participated in PT yesterday but could only walk a short distance with assistance and the use of a rolling walker Review of Systems Constitutional: + weakness; no fever Eyes: no problem reported Ear, Nose, Mouth, Throat: no problem reported Respiratory: no cough and no dyspnea Cardiovascular: no chest pain, no palpitations and no edema Gastrointestinal: no abdominal pain, no nausea, no vomiting and no diarrhea/loose stools Genitourinary: no dysuria, no urinary hesitancy and no hematuria Musculoskeletal: no back pain Integumentary: no rash Physical Exam Constitutional: + frail appearing; not in distress Eyes: PERRL ENMT: external ear and nose normal, oropharynx normal Neck: trachea midline, no thyromegaly Respiratory: normal respiratory effort, lungs clear to auscultation Cardiovascular: RRR, no murmur, no edema Gastrointestinal (Abdomen): normal bowel sounds, soft, nontender, no hepatosplenomegaly Musculoskeletal: Extremities: no cyanosis Skin: no rashes, warm and dry Neurologic: awake (oriented to self only) Results & Data ([facility]) Vital Signs (Past 12 Hours) Vital Signs Temp Pulse Pulse Resp BP Pulse Ox 04/12/20 07:42 36.9 C 84 16 136/71 92 04/12/20 04:00 37.0 C 79 18 160/73 H 93 04/12/20 00:40 63 04/12/20 00:00 37.0 C 84 18 127/66 93 Laboratory Results Laboratory Tests 04/12/20 06:09 Sodium 138 Potassium 3.2 L Chloride 101 Carbon Dioxide 31 BUN 15 Creatinine 0.67 Glucose 130 H PG Care Time/CCT Total # of Minutes Spent Total Time Spent with Patient: Total time spent is greater than 50% in coordination of care (as documented) at patient's floor/unit and/or counseling patient: Coding Level of Care Code 62619 Subseq Hosp Care Lvl 3 Diagnoses Hyponatremia E87.1 Hypertension I10
--- NOTE | 2020-04-12 14:46 | Hospitalist Progress Note ---
Date of Service April 12, 2020 Assessment & Plan (1) AMS (altered mental status): 79-year-old male was admitted on 03 Apr 2020 via EMS (from [facility]) for AMS likely multifactorial in nature. Stable for discharge to SNF. Altered mental status, possible metabolic encephalopathy, right frontal lobe lacunar infarct: -Suspect this is multifactorial in origin to include hyponatremia, polypharmacy, recent CVA, and concussive symptoms. -Workup thus far positive for right frontal lobe infarct (timing unclear, ? from prior fall) and intraventricular blood. Do not suspect ventriculitis given no evidence of infection by exam or labs thus far. No role for surgery. -22May CTA head and neck are non-acute. -22May LP noted evidence of bleeding. -[employer] CSF PCR testing was negative. -CSF culture with NGTD. -24May stopped empiric vancomycin + cefepime (received four days tx) and empiric acyclovir (received three days tx). -currently at baseline Hyponatremia: -currently much improved, Na in 130s recently -Hx of this since perhaps January 2019. -Admit sodium 125 -Appreciate Nephrology recs: -Likely secondary to SIADH -continue 2g PO BID NaCl administration -continue Lasix 20mg PO BID for free water excretion -continue Effexor at decreased 225mg daily dose -continue fluid restriction -May need chest CT to look for occult malignancy causing SIADH vs further adjustment of his Effexor +/- trazodone. Urinary incontinence: -Daughter says this is a relatively new finding. -UCx grew Alpha strep. -Should be covered by antibiotics he has already received. Hypertension: -On home amlodipine 5mg qPM. Could also increase his amlodipine to 7.5 mg daily if needed. -Held home spironolactone and Lasix. -On hydralazine prn. Goal SBP around 140-160. Second degree Type 1 AV block: -Seen on telemetry on afternoon of y with HR as low as 30s. -Asymptomatic, no noted pauses. -Appreciate Cardiology recs: -did not recommend immediate intervention. -No noted rhythm changes when he was standing/moving with physical therapy. Longstanding sensory ataxia / diabetic peripheral neuropathy, recent fall and left rib fractures: -Holding opiates due to AMS. On scheduled Tylenol. Elevated alk phos: -Admit AP 173, stable around 190. -19May abdominal u/s noted cholelithiasis without evidence of cholecystitis and a cirrhotic liver morphology. -Non-tender abdomen. -Monitor for now. Splenomegaly: -Including a 6.8 cm heterogeneous focus on 19May u/s. May be post-traumatic from prior fall. Chronic thrombocytopenia: - Admit platelets 116. -Seen by hematology in 2018, noted thrombocytopenia likely related to Hepatitis C (s/p blood transfusion). -Trended as low as 86. Monitoring. Hyperlipidemia, ? CHF: -Continue home Zocor. -20May TTE noted EF 55-60%, normal LVSF, no significant change since April 2019. -Is on Lasix 10 mg at home. -Started on Lasix 20 mg BID for hyponatremia as above. Iron deficiency anemia: -Admit Hb 12.5 (MCV 83), stable. -No evidence of acute bleeding. -Suspect anemia of chronic inflammation as well. Diabetes type 2: -March 2020 HbA1c 6.1. -Held home glargine, aspart, and metformin. -Held home aspirin due to blood in CSF. -Placed on insulin sliding scale. Mixed restrictive and obstructive lung disease, chronic hypoxic resp. failure: -Is on 2-3 L NC oxygen at home (though not requiring it as inpatient). -Sees Dr. Tomas of pulmonology as outpatient. -Continue home albuterol prn. Chronic kidney disease: -Cr around 0.7 as inpatient. Mild tardive dyskinesia: -Thought to be related to home Abilify. -Follows with psychiatry as an outpatient. -Per neurology, his home gabapentin dosing was decreased from QID to TID and his home amantadine was discontinued. Alcoholic and compensated hepatitis C cirrhosis: -Alcohol cessation in 2007. -Previously followed by [facility]. -Normal LFTs. Opiate-associated constipation: -Tapentadol BID was stopped on last discharge and swapped with new oxycodone. -Held home bisacodyl and miralax. -Continue home docusate. - Held narcotics due to AMS. Obstructive sleep apnea: -Reportedly wears BiPAP intermittently. -Ordered for inpatient. Microscopic hematuria: -On prior discharge, plan was for outpatient cystoscopy with urology. No UA RBCs seen on this admit. BPH: -Continue home finasteride and silodosin. Depression, anxiety: -Continue home buspirone and trazodone. -Lowered Effexor due to hyponatremia. Consider lowering/stopping trazodone as well. Code status: Full code. Diet: DM2. Fluid restrict to 2000 mL/day. DVT prophy: Holding lovenox for now. SCDs. PT/OT: PT noted he stands with maximum assistance. Leans to the left when standing. Dispo: Admitted to med surg tele. Daughter is Niyah ([phone]), lives in [place]. (2) Hyponatremia: (3) Hypertension: (4) Elevated alkaline phosphatase level: (5) Cholelithiasis: (6) Iron deficiency anemia: (7) Hyperlipidemia: (8) Diabetes mellitus: (9) Diabetic peripheral neuropathy: (10) Mixed restrictive and obstructive lung disease: (11) Chronic kidney disease, stage II (mild): (12) CHF (congestive heart failure): (13) Tardive dyskinesia: (14) Cirrhosis, alcoholic: (15) Compensated HCV cirrhosis: (16) Constipation due to pain medication: (17) TERI (obstructive sleep apnea): (18) Benign prostatic hyperplasia with urinary obstruction: (19) Anxiety: (20) Depression: (21) Second degree atrioventricular block, Mobitz (type) I: (22) Metabolic encephalopathy: (23) Right-sided lacunar infarction: Admission and Anticipated Discharge Date Admission Date: April 03, 2020 Supervising Physician Co-Signing Physician Notes I personally examined the patient and verified all massey points of history and exam, discussed case, and agree with decision making with Dr Ferris. no new complaints. no new issues. still working on placement. vitals noted nad heent nc at mmm breathing unlabored no accessory muscles good effort skin no rashes no pallor or icterus - Altered mental status multifactorial - small bleed vs inflammation (see below) + polypharmacy + changing environments + ?degree of dementia at baseline? awaiting rehab placement - appears that SNF level care will be his disposition - multiple rehab facilities do not feel he is appropriate for their level of care -blood in CSF unclear if leftover from viral encephalitis process or from small bleed from falls - but since clinically improving and stable//cultures negative//no signs of ongoing bleed, treatment for both would be supportive - continues to look clinically stable - SIADH: nephrology following sodium levels reasonable overall, follow periodically continue sodium and lasix, continue to follow Subjective Pt seen this AM, sitting up in bed. AAOx1 today. Review of Systems Review of Systems: Unobtainable due to cognitive status Physical Exam Physical Exam: General: Alert, orientedx1. No acute distress, resting c omfortably. Skin: No noted rashes or bruises Psych: pleasant Neuro: No gross deficits HEENT: NC/AT Chest: Nontender to palpation. CV: RRR, Normal s1, s2. No murmurs appreciated Resp: Breath sounds clear bilaterally, no increased effort of breathing Abdomen: BS+. Soft, nontender, nondistended. No guarding. No organomegaly appreciated. Extremities: some edema in lower extremities bilaterally. Results & Data Results & Data ([facility]) Vital Signs (Past 12 Hours) Vital Signs Temp Pulse Pulse Resp BP Pulse Ox 04/12/20 13:10 37.4 C 04/12/20 11:26 38 C H 93 H 18 139/75 96 04/12/20 08:00 63 04/12/20 07:42 36.9 C 84 16 136/71 92 04/12/20 04:00 37.0 C 79 18 160/73 H 93 Resident Activity Tracking Resident Involvement: Resident Care Provided Care Provided: Adult Hospital Medicine (1) CHF (congestive heart failure) Heart failure chronicity: unspecified Heart failure type: unspecified Qualified Code(s): I50.9 - Heart failure, unspecified (2) AMS (altered mental status) Altered mental status type: somnolence Qualified Code(s): R40.0 - Somnolence
--- NOTE | 2020-04-12 18:12 | Billing Data ---
Date of Service April 12, 2020 Coding Level of Care Code 64695 Subseq Hosp Care Lvl 2
[2020-04-12] MEDS: ARIPiprazole 10 MG TAB PO SCH (20:43)
[2020-04-12] MEDS: SIMVASTATIN 40 MG TAB PO SCH (20:47)
[2020-04-12] MEDS: AMLODIPINE BESYLATE 5 MG TAB PO SCH (20:48)
[2020-04-12] MEDS: TRAZODONE HCL 50 MG TAB PO SCH (20:49)
[2020-04-13] MEDS: CALCIUM 600MG + VIT D 400 IU TAB PO SCH (07:57)
[2020-04-13] MEDS: MAGNESIUM OXIDE 400 MG TAB PO SCH (07:57)
[2020-04-13] MEDS: VENLAFAXINE HCL XR 75 MG CAPXR PO SCH (07:57)
[2020-04-13] MEDS: SODIUM CHLORIDE 1 GM TABLET PO SCH ×2 (07:58→20:20)
[2020-04-13] MEDS: CHOLECALCIFEROL 1,000 UNITS 25 MCG TAB PO SCH (07:58)
[2020-04-13] MEDS: FUROSEMIDE 20 MG TAB PO SCH ×2 (07:58→17:24)
[2020-04-13] MEDS: VITAMIN B COMPLEX TAB PO SCH (07:58)
[2020-04-13] MEDS: GABAPENTIN 800 MG TAB PO SCH ×2 (07:58→13:59)
[2020-04-13] MEDS: FINASTERIDE 5 MG TAB PO SCH (07:58)
[2020-04-13] MEDS: BusPIRone 15 MG TAB PO SCH ×2 (07:59→20:34)
[2020-04-13] MEDS: DOCUSATE SODIUM 100 MG CAP PO SCH ×2 (07:59→20:18)
[2020-04-13] MEDS: ACETAMINOPHEN 500 MG TAB PO SCH ×2 (07:59→20:19)
[2020-04-13 08:01] LABS: BUN Creatinine Ratio 16.4 (10-20); Calcium 9.5 mg/dl (8.5-10.1); Creatinine Clr Calc Pharmacy 103.2 ml/min; Est GFR (African American) 101.7; Est GFR (Non-African American) 87.7; Potassium 3.6 mmol/L (3.5-5.1)
[2020-04-13] MEDS: INSULIN ASPART 100 UNITS/ML 3 ML PEN SC SCH ×4 (08:06→20:33)
--- NOTE | 2020-04-13 09:28 | Nephrology Progress Note ---
Date of Service April 13, 2020 Assessment & Plan (1) Hyponatremia: Hypoosmolar hyponatremia, patient is clinically euvolemic. No evidence of thyroid, adrenal or significant renal insufficiency at this time. Urine osmolality was inappropriately elevated at the time of admission suggesting SIADH. Patient has a significant h/o tobacco use w/ COPD but CXR was negative for infiltrate/mass lesion. Review of medical record shows that hyponatremia has been a chronic finding over the last year. Serum sodium has been 125 - 130 mmol/L since 02/01. Doubt that chronic, mild hyponatremia is the predominant cause of his acute MS changes. Other etiologies need to be evaluated. Agree that SSRI therapy may be contributing to low sodium level. Serum sodium is gradually correcting with NaCl administration and use of a loop diuretic. Recommend the following: -- Continue low dose Furosemide to force free water excretion. Patient will likely require a low dose loop diuretic prison -- Continue NaCl 2g po BID. If sustained sodium > 135 mmol/L, can reduce to NaCl 1g po BID -- Monitor PRP -- Taper SSRI to lowest effective dose or substitute alternative therapy -- No further Nephrology evaluation needed at this time. Will sign off. Please call if further assistance is needed. Serum sodium can be monitored and NaCl adjusted by PCP as outpatient (2) Hypertension: -- Blood pressure remains mildly elevated. Amlodipine has been increased to 7.5 mg po each evening Admission and Anticipated Discharge Date Admission Date: April 03, 2020 Subjective Mr. Page was seen & examined in his hospital room this morning. He was oriented to self and place. He is tolerating NaCl without GI upset. Mr. Page remains weak. He was preparing to participate in PT this morning. Review of Systems Constitutional: + weakness; no fever Eyes: no problem reported Ear, Nose, Mouth, Throat: no problem reported Respiratory: no cough and no dyspnea Cardiovascular: no chest pain, no palpitations and no edema Gastrointestinal: no abdominal pain, no nausea, no vomiting and no diarrhea/loose stools Genitourinary: no dysuria, no urinary hesitancy and no hematuria Musculoskeletal: no back pain Integumentary: no rash Physical Exam Constitutional: + frail appearing; not in distress Eyes: PERRL ENMT: external ear and nose normal, oropharynx normal Neck: trachea midline, no thyromegaly Respiratory: normal respiratory effort, lungs clear to auscultation Cardiovascular: RRR, no murmur, no edema Gastrointestinal (Abdomen): normal bowel sounds, soft, nontender, no hepatosplenomegaly Musculoskeletal: Extremities: no cyanosis Skin: no rashes, warm and dry Neurologic: awake (oriented to self only) Results & Data ([facility]) Vital Signs (Past 12 Hours) Vital Signs Temp Pulse Pulse Resp BP Pulse Ox 04/13/20 07:06 36.4 C L 80 20 155/79 H 97 04/13/20 03:49 36.7 C 77 19 152/70 H 95 04/13/20 03:05 82 18 94 04/13/20 00:00 90 04/12/20 23:00 37.0 C 84 19 149/78 H 96 04/12/20 22:26 93 H 16 96 Laboratory Results Laboratory Tests 04/13/20 06:52 Sodium 135 L Potassium 3.6 Chloride 99 Carbon Dioxide 31 BUN 12 Creatinine 0.74 Glucose 145 H Calcium 9.5 PG Care Time/CCT Total # of Minutes Spent Total Time Spent with Patient: Total time spent is greater than 50% in coordination of care (as documented) at patient's floor/unit and/or counseling patient: Coding Level of Care Code 32283 Subseq Hosp Care Lvl 3 Diagnoses Hyponatremia E87.1 Hypertension I10
--- NOTE | 2020-04-13 13:53 | Hospitalist Progress Note ---
Date of Service April 13, 2020 Assessment & Plan (1) AMS (altered mental status): 79-year-old male was admitted on 03 Apr 2020 via EMS (from [facility]) for AMS likely multifactorial in nature. Stable for discharge to SNF. Altered mental status, possible metabolic encephalopathy, right frontal lobe lacunar infarct: -Suspect this is multifactorial in origin to include hyponatremia, polypharmacy, recent CVA, and concussive symptoms. -Workup thus far positive for right frontal lobe infarct (timing unclear, ? from prior fall) and intraventricular blood. Do not suspect ventriculitis given no evidence of infection by exam or labs thus far. No role for surgery. -22May CTA head and neck are non-acute. -22May LP noted evidence of bleeding. -[facility] CSF PCR testing was negative. -CSF culture with NGTD. -24May stopped empiric vancomycin + cefepime (received four days tx) and empiric acyclovir (received three days tx). -currently at baseline Hyponatremia: -currently much improved, Na in 130s recently -Hx of this since perhaps January 2019. -Admit sodium 125 -Appreciate Nephrology recs: -Likely secondary to SIADH -continue 2g PO BID NaCl administration- consider switching to 1g BID with Na >135 -continue Lasix 20mg PO BID for free water excretion -continue Effexor at decreased 225mg daily dose -continue fluid restriction -May need chest CT to look for occult malignancy causing SIADH vs further adjustment of his Effexor +/- trazodone. Urinary incontinence: -Daughter says this is a relatively new finding. -UCx grew Alpha strep. -Should be covered by antibiotics he has already received. Hypertension: -On home amlodipine 5mg qPM. Could also increase his amlodipine to 7.5 mg daily if needed. -Held home spironolactone and Lasix. -On hydralazine prn. Goal SBP around 140-160. Second degree Type 1 AV block: -Seen on telemetry on afternoon of y with HR as low as 30s. -Asymptomatic, no noted pauses. -Appreciate Cardiology recs: -did not recommend immediate intervention. -No noted rhythm changes when he was standing/moving with physical therapy. Longstanding sensory ataxia / diabetic peripheral neuropathy, recent fall and left rib fractures: -Holding opiates due to AMS. On scheduled Tylenol. Elevated alk phos: -Admit AP 173, stable around 190. -19May abdominal u/s noted cholelithiasis without evidence of cholecystitis and a cirrhotic liver morphology. -Non-tender abdomen. -Monitor for now. Splenomegaly: -Including a 6.8 cm heterogeneous focus on 19May u/s. May be post-traumatic from prior fall. Chronic thrombocytopenia: - Admit platelets 116. -Seen by hematology in 2018, noted thrombocytopenia likely related to Hepatitis C (s/p blood transfusion). -Trended as low as 86. Monitoring. Hyperlipidemia, ? CHF: -Continue home Zocor. -20May TTE noted EF 55-60%, normal LVSF, no significant change since April 2019. -Is on Lasix 10 mg at home. -Started on Lasix 20 mg BID for hyponatremia as above. Iron deficiency anemia: -Admit Hb 12.5 (MCV 83), stable. -No evidence of acute bleeding. -Suspect anemia of chronic inflammation as well. Diabetes type 2: -March 2020 HbA1c 6.1. -Held home glargine, aspart, and metformin. -Held home aspirin due to blood in CSF. -Placed on insulin sliding scale. Mixed restrictive and obstructive lung disease, chronic hypoxic resp. failure: -Is on 2-3 L NC oxygen at home (though not requiring it as inpatient). -Sees Dr. Tomas of pulmonology as outpatient. -Continue home albuterol prn. Chronic kidney disease: -Cr around 0.7 as inpatient. Mild tardive dyskinesia: -Thought to be related to home Abilify. -Follows with psychiatry as an outpatient. -Per neurology, his home gabapentin dosing was decreased from QID to TID and his home amantadine was discontinued. Alcoholic and compensated hepatitis C cirrhosis: -Alcohol cessation in 2007. -Previously followed by [facility]. -Normal LFTs. Opiate-associated constipation: -Tapentadol BID was stopped on last discharge and swapped with new oxycodone. -Held home bisacodyl and miralax. -Continue home docusate. - Held narcotics due to AMS. Obstructive sleep apnea: -Reportedly wears BiPAP intermittently. -Ordered for inpatient. Microscopic hematuria: -On prior discharge, plan was for outpatient cystoscopy with urology. No UA RBCs seen on this admit. BPH: -Continue home finasteride and silodosin. Depression, anxiety: -Continue home buspirone and trazodone. -Lowered Effexor due to hyponatremia. Consider lowering/stopping trazodone as well. Code status: Full code. Diet: DM2. Fluid restrict to 2000 mL/day. DVT prophy: Holding lovenox for now. SCDs. PT/OT: PT noted he stands with maximum assistance. Leans to the left when standing. Dispo: Admitted to med surg tele. Daughter is Niyah ([phone]), lives in [place]. (2) Hyponatremia: (3) Hypertension: (4) Elevated alkaline phosphatase level: (5) Cholelithiasis: (6) Iron deficiency anemia: (7) Hyperlipidemia: (8) Diabetes mellitus: (9) Diabetic peripheral neuropathy: (10) Mixed restrictive and obstructive lung disease: (11) Chronic kidney disease, stage II (mild): (12) CHF (congestive heart failure): (13) Tardive dyskinesia: (14) Cirrhosis, alcoholic: (15) Compensated HCV cirrhosis: (16) Constipation due to pain medication: (17) TERI (obstructive sleep apnea): (18) Benign prostatic hyperplasia with urinary obstruction: (19) Anxiety: (20) Depression: (21) Second degree atrioventricular block, Mobitz (type) I: (22) Metabolic encephalopathy: (23) Right-sided lacunar infarction: Admission and Anticipated Discharge Date Admission Date: April 03, 2020 Supervising Physician Co-Signing Physician Notes I personally examined the patient and verified all massey points of history and exam, discussed case, and agree with decision making with Dr Ferris. no new complaints. no new issues. was hoping for placement soon. case management still working on placement choices with daughter. vitals noted nad heent nc at mmm breathing unlabored no accessory muscles good effort skin no rashes no pallor or icterus - Altered mental status multifactorial - small bleed vs inflammation (see below) + polypharmacy (while he's still here - to make progress in polypharmacy will reduce gabapentin to 600mg and abilify to 7.5mg) + changing environments + ?degree of dementia at baseline? awaiting rehab placement - appears that SNF level care will be his disposition - case management working with dtr on choices. will likely unfortunately not be able to go until sometime next week - therefore will probably have to send another COVID thursday night or thursday since one from 04/05 not xavier to be recent enough then for most facilities. -blood in CSF unclear if leftover from viral encephalitis process or from small bleed from falls - but since clinically improving and stable//cultures negative//no signs of ongoing bleed, treatment for both would be supportive - continues to look clinically stable - SIADH: nephrology following sodium levels reasonable overall, follow BMP periodically continue sodium and lasix, continue to follow Subjective Pt seen this AM. AAOx1. Review of Systems Review of Systems: Unobtainable due to cognitive status Physical Exam Physical Exam: General: Alert, orientedx1. No acute distress, resting comfortably. Skin: No noted rashes or bruises Psych: pleasantly demented Neuro: No gross deficits HEENT: NC/AT Chest: Nontender to palpation. CV: RRR, Normal s1, s2. No murmurs appreciated Resp: Breath sounds clear bilaterally, no increased effort of breathing Abdomen: BS+. Soft, nontender, nondistended. No guarding. No organomegaly appreciated. Extremities: some edema in lower extremities bilaterally. Results & Data Results & Data ([facility]) Vital Signs (Past 12 Hours) Vital Signs Temp Pulse Pulse Resp BP Pulse Ox 04/13/20 11:00 36.7 C 85 20 152/72 H 96 04/13/20 07:06 36.4 C L 80 20 155/79 H 97 04/13/20 03:49 36.7 C 77 19 152/70 H 95 04/13/20 03:05 82 18 94 Resident Activity Tracking Resident Involvement: Resident Care Provided Care Provided: Adult Hospital Medicine (1) CHF (congestive heart failure) Heart failure chronicity: unspecified Heart failure type: unspecified Qualified Code(s): I50.9 - Heart failure, unspecified (2) AMS (altered mental status) Altered mental status type: somnolence Qualified Code(s): R40.0 - Somnolence
--- NOTE | 2020-04-13 15:33 | Billing Data ---
Date of Service April 13, 2020 Coding Level of Care Code 71128 Subseq Hosp Care Lvl 2
[2020-04-13] MEDS: ARIPiprazole 5 MG TAB PO SCH (20:17)
[2020-04-13] MEDS: GABAPENTIN 600 MG TAB PO SCH (20:17)
[2020-04-13] MEDS: TRAZODONE HCL 50 MG TAB PO SCH (20:18)
[2020-04-13] MEDS: SIMVASTATIN 40 MG TAB PO SCH (20:18)
[2020-04-13] MEDS: AMLODIPINE BESYLATE 5 MG TAB PO SCH (20:19)
[2020-04-14] MEDS: DOCUSATE SODIUM 100 MG CAP PO SCH ×2 (07:41→20:48)
[2020-04-14] MEDS: GABAPENTIN 600 MG TAB PO SCH ×3 (07:41→20:48)
[2020-04-14] MEDS: ACETAMINOPHEN 500 MG TAB PO SCH ×2 (07:41→20:52)
[2020-04-14] MEDS: CALCIUM 600MG + VIT D 400 IU TAB PO SCH (07:42)
[2020-04-14] MEDS: SODIUM CHLORIDE 1 GM TABLET PO SCH ×2 (07:42→20:47)
[2020-04-14] MEDS: FUROSEMIDE 20 MG TAB PO SCH ×2 (07:43→17:35)
[2020-04-14] MEDS: VITAMIN B COMPLEX TAB PO SCH (07:43)
[2020-04-14] MEDS: VENLAFAXINE HCL XR 75 MG CAPXR PO SCH (07:43)
[2020-04-14] MEDS: FINASTERIDE 5 MG TAB PO SCH (07:44)
[2020-04-14] MEDS: BusPIRone 15 MG TAB PO SCH ×2 (07:44→20:50)
[2020-04-14] MEDS: CHOLECALCIFEROL 1,000 UNITS 25 MCG TAB PO SCH (07:45)
[2020-04-14] MEDS: MAGNESIUM OXIDE 400 MG TAB PO SCH (07:45)
[2020-04-14 08:10] LABS: Calcium 9.1 mg/dl (8.5-10.1); Creatinine Clr Calc Pharmacy 105.4 ml/min; Est GFR (African American) 102.8; Est GFR (Non-African American) 88.7; Potassium 3.6 mmol/L (3.5-5.1)
[2020-04-14] MEDS: INSULIN ASPART 100 UNITS/ML 3 ML PEN SC SCH ×4 (08:35→21:01)
--- NOTE | 2020-04-14 14:12 | Hospitalist Progress Note ---
Date of Service April 14, 2020 Assessment & Plan (1) AMS (altered mental status): 79-year-old male was admitted on 03 Apr 2020 via EMS (from [facility]) for AMS likely multifactorial in nature. Stable for discharge to SNF. Altered mental status, possible metabolic encephalopathy, right frontal lobe lacunar infarct: -Suspect this is multifactorial in origin to include hyponatremia, polypharmacy, recent CVA, and concussive symptoms. -Workup thus far positive for right frontal lobe infarct (timing unclear, ? from prior fall) and intraventricular blood. Do not suspect ventriculitis given no evidence of infection by exam or labs thus far. No role for surgery. -22May CTA head and neck are non-acute. -22May LP noted evidence of bleeding. -[facility] CSF PCR testing was negative. -CSF culture with NGTD. -24May stopped empiric vancomycin + cefepime (received four days tx) and empiric acyclovir (received three days tx). -currently at baseline Hyponatremia: -currently much improved, Na in 130s recently -Hx of this since perhaps January 2019. -Admit sodium 125 -Appreciate Nephrology recs: -Likely secondary to SIADH -continue 2g PO BID NaCl administration- consider switching to 1g BID with Na >135 -continue Lasix 20mg PO BID for free water excretion -continue Effexor at decreased 225mg daily dose -continue fluid restriction -May need chest CT to look for occult malignancy causing SIADH vs further adjustment of his Effexor +/- trazodone. Urinary incontinence: -Daughter says this is a relatively new finding. -UCx grew Alpha strep. -Should be covered by antibiotics he has already received. Hypertension: -On home amlodipine 5mg qPM. Could also increase his amlodipine to 7.5 mg daily if needed. -Held home spironolactone and Lasix. -On hydralazine prn. Goal SBP around 140-160. Second degree Type 1 AV block: -Seen on telemetry on afternoon of y with HR as low as 30s. -Asymptomatic, no noted pauses. -Appreciate Cardiology recs: -did not recommend immediate intervention. -No noted rhythm changes when he was standing/moving with physical therapy. Longstanding sensory ataxia / diabetic peripheral neuropathy, recent fall and left rib fractures: -Holding opiates due to AMS. On scheduled Tylenol. Elevated alk phos: -Admit AP 173, stable around 190. -19May abdominal u/s noted cholelithiasis without evidence of cholecystitis and a cirrhotic liver morphology. -Non-tender abdomen. -Monitor for now. Splenomegaly: -Including a 6.8 cm heterogeneous focus on 19May u/s. May be post-traumatic from prior fall. Chronic thrombocytopenia: - Admit platelets 116. -Seen by hematology in 2018, noted thrombocytopenia likely related to Hepatitis C (s/p blood transfusion). -Trended as low as 86. Monitoring. Hyperlipidemia, ? CHF: -Continue home Zocor. -20May TTE noted EF 55-60%, normal LVSF, no significant change since April 2019. -Is on Lasix 10 mg at home. -Started on Lasix 20 mg BID for hyponatremia as above. Iron deficiency anemia: -Admit Hb 12.5 (MCV 83), stable. -No evidence of acute bleeding. -Suspect anemia of chronic inflammation as well. Diabetes type 2: -March 2020 HbA1c 6.1. -Held home glargine, aspart, and metformin. -Held home aspirin due to blood in CSF. -Placed on insulin sliding scale. Mixed restrictive and obstructive lung disease, chronic hypoxic resp. failure: -Is on 2-3 L NC oxygen at home (though not requiring it as inpatient). -Sees Dr. Tomas of pulmonology as outpatient. -Continue home albuterol prn. Chronic kidney disease: -Cr around 0.7 as inpatient. Mild tardive dyskinesia: -Thought to be related to home Abilify. -Follows with psychiatry as an outpatient. -Per neurology, his home gabapentin dosing was decreased from QID to TID and his home amantadine was discontinued. Alcoholic and compensated hepatitis C cirrhosis: -Alcohol cessation in 2007. -Previously followed by [facility]. -Normal LFTs. Opiate-associated constipation: -Tapentadol BID was stopped on last discharge and swapped with new oxycodone. -Held home bisacodyl and miralax. -Continue home docusate. - Held narcotics due to AMS. Obstructive sleep apnea: -Reportedly wears BiPAP intermittently. -Ordered for inpatient. Microscopic hematuria: -On prior discharge, plan was for outpatient cystoscopy with urology. No UA RBCs seen on this admit. BPH: -Continue home finasteride and silodosin. Depression, anxiety: -Continue home buspirone and trazodone. -Lowered Effexor due to hyponatremia. Consider lowering/stopping trazodone as well. Code status: Full code. Diet: DM2. Fluid restrict to 2000 mL/day. DVT prophy: Holding lovenox for now. SCDs. PT/OT: PT noted he stands with maximum assistance. Leans to the left when standing. Dispo: Admitted to med surg tele. Daughter is Niyah ([phone]), lives in [place]. (2) Hyponatremia: (3) Hypertension: (4) Elevated alkaline phosphatase level: (5) Cholelithiasis: (6) Iron deficiency anemia: (7) Hyperlipidemia: (8) Diabetes mellitus: (9) Diabetic peripheral neuropathy: (10) Mixed restrictive and obstructive lung disease: (11) Chronic kidney disease, stage II (mild): (12) CHF (congestive heart failure): (13) Tardive dyskinesia: (14) Cirrhosis, alcoholic: (15) Compensated HCV cirrhosis: (16) Constipation due to pain medication: (17) TERI (obstructive sleep apnea): (18) Benign prostatic hyperplasia with urinary obstruction: (19) Anxiety: (20) Depression: (21) Second degree atrioventricular block, Mobitz (type) I: (22) Metabolic encephalopathy: (23) Right-sided lacunar infarction: Admission and Anticipated Discharge Date Admission Date: April 03, 2020 Supervising Physician Co-Signing Physician Notes I personally examined the patient and verified all massey points of history and exam, discussed case, and agree with decision making with Dr Ferris. discussed discharge issues. he wonders when he'll be getting out of the hospital vitals noted nad heent nc at mmm breathing unlabored no accessory muscles good effort skin no rashes no pallor or icterus - Altered mental status multifactorial - small bleed vs inflammation (see below) + polypharmacy to make progress in polypharmacy reduced gabapentin to 600mg and abilify to 7.5mg - in a few days if he's still doing well can consider reducing further) + changing environments + ?degree of dementia at baseline? awaiting rehab placement - appears that SNF level care will be his disposition - case management working with dtr on choices. will likely unfortunately not be able to go until sometime next week - therefore will probably have to send another COVID thursday night or thursday since one from 04/05 not likely to be recent enough then for most facilities. -blood in CSF unclear if leftover from viral encephalitis process or from small bleed from falls - but since clinically improving and stable//cultures negative//no signs of ongoing bleed, treatment for both would be supportive - continues to look clinically stable - SIADH: nephrology following sodium levels reasonable overall, follow BMP periodically continue sodium and lasix, continue to follow Subjective Pt seen this AM. AAOx1. Review of Systems Review of Systems: Unobtainable due to cognitive status Physical Exam Physical Exam: General: Alert, orientedx1. No acute distress, resting comfortably. Skin: No noted rashes or bruises Psych: pleasantly demented Neuro: No gross deficits HEENT: NC/AT Chest: Nontender to palpation. CV: RRR, Normal s1, s2. No murmurs appreciated Resp: Breath sounds clear bilaterally, no increased effort of breathing Abdomen: BS+. Soft, nontender, nondistended. No guarding. No organomegaly appreciated. Extremities: some edema in lower extremities bilaterally. Results & Data Results & Data ([facility]) Vital Signs (Past 12 Hours) Vital Signs Temp Pulse Pulse Resp BP Pulse Ox 04/14/20 11:56 37.0 C 82 18 145/71 H 98 04/14/20 08:07 36.5 C 77 18 155/69 H 92 04/14/20 08:00 80 04/14/20 04:24 36.6 C 78 17 154/73 H 93 04/14/20 04:01 86 04/14/20 03:05 82 16 94 Resident Activity Tracking Resident Involvement: Resident Care Provided Care Provided: Adult Hospital Medicine (1) CHF (congestive heart failure) Heart failure chronicity: unspecified Heart failure type: unspecified Qualified Code(s): I50.9 - Heart failure, unspecified (2) AMS (altered mental status) Altered mental status type: somnolence Qualified Code(s): R40.0 - Somnolence
--- NOTE | 2020-04-14 14:16 | Billing Data ---
Date of Service April 14, 2020 Coding Level of Care Code 90109 Subseq Hosp Care Lvl 2
[2020-04-14] MEDS: SIMVASTATIN 40 MG TAB PO SCH (20:48)
[2020-04-14] MEDS: TRAZODONE HCL 50 MG TAB PO SCH (20:48)
[2020-04-14] MEDS: ARIPiprazole 5 MG TAB PO SCH (20:49)
[2020-04-14] MEDS: AMLODIPINE BESYLATE 5 MG TAB PO SCH (20:50)
[2020-04-15 08:10] LABS: BUN Creatinine Ratio 14.3 (10-20); Calcium 9.2 mg/dl (8.5-10.1); Creatinine Clr Calc Pharmacy 104.2 ml/min; Est GFR (African American) 102.2; Est GFR (Non-African American) 88.2
[2020-04-15] MEDS: INSULIN ASPART 100 UNITS/ML 3 ML PEN SC SCH ×4 (08:36→21:24)
[2020-04-15] MEDS: SODIUM CHLORIDE 1 GM TABLET PO SCH ×2 (08:37→21:23)
[2020-04-15] MEDS: ACETAMINOPHEN 500 MG TAB PO SCH ×2 (08:37→21:23)
[2020-04-15] MEDS: GABAPENTIN 600 MG TAB PO SCH ×3 (08:37→21:23)
[2020-04-15] MEDS: FUROSEMIDE 20 MG TAB PO SCH ×2 (08:37→17:26)
[2020-04-15] MEDS: FINASTERIDE 5 MG TAB PO SCH (08:37)
[2020-04-15] MEDS: CHOLECALCIFEROL 1,000 UNITS 25 MCG TAB PO SCH (08:38)
[2020-04-15] MEDS: VITAMIN B COMPLEX TAB PO SCH (08:38)
[2020-04-15] MEDS: CALCIUM 600MG + VIT D 400 IU TAB PO SCH (08:38)
[2020-04-15] MEDS: DOCUSATE SODIUM 100 MG CAP PO SCH ×2 (08:39→21:23)
[2020-04-15] MEDS: VENLAFAXINE HCL XR 75 MG CAPXR PO SCH (08:39)
[2020-04-15] MEDS: MAGNESIUM OXIDE 400 MG TAB PO SCH (08:39)
[2020-04-15] MEDS: BusPIRone 15 MG TAB PO SCH ×2 (08:39→21:23)
--- NOTE | 2020-04-15 09:56 | Hospitalist Progress Note ---
Date of Service April 15, 2020 Assessment & Plan (1) AMS (altered mental status): 79-year-old male was admitted on 03 Apr 2020 via EMS (from [facility]) for AMS likely multifactorial in nature. Stable for discharge to SNF. Altered mental status, possible metabolic encephalopathy, right frontal lobe lacunar infarct: -Suspect this is multifactorial in origin to include hyponatremia, polypharmacy, recent CVA, and concussive symptoms. -Workup thus far positive for right frontal lobe infarct (timing unclear, ? from prior fall) and intraventricular blood. Do not suspect ventriculitis given no evidence of infection by exam or labs thus far. No role for surgery. -22May CTA head and neck are non-acute. -22May LP noted evidence of bleeding. -[facility] CSF PCR testing was negative. -CSF culture with NGTD. -24May stopped empiric vancomycin + cefepime (received four days tx) and empiric acyclovir (received three days tx). -currently at baseline Hyponatremia: -currently much improved, Na in 130s recently -Hx of this since perhaps January 2019. -Admit sodium 125 -Appreciate Nephrology recs: -Likely secondary to SIADH -continue 2g PO BID NaCl administration- consider switching to 1g BID with Na >135. Switched to 1g BID on 04/14/2020. -continue Lasix 20mg PO BID for free water excretion -continue Effexor at decreased 225mg daily dose -continue fluid restriction -May need chest CT to look for occult malignancy causing SIADH vs further adjustment of his Effexor +/- trazodone. Urinary incontinence: -Daughter says this is a relatively new finding. -UCx grew Alpha strep. -Should be covered by antibiotics he has already received. -[place] Hypertension: -On home amlodipine 5mg qPM. Could also increase his amlodipine to 7.5 mg daily if needed. -Held home spironolactone. -On hydralazine prn. Second degree Type 1 AV block: -Seen on telemetry on afternoon of May with HR as low as 30s. -Asymptomatic, no noted pauses. -Appreciate Cardiology recs: -did not recommend immediate intervention. -No noted rhythm changes when he was standing/moving with physical therapy. Longstanding sensory ataxia / diabetic peripheral neuropathy, recent fall and left rib fractures: -Holding opiates due to AMS. On scheduled Tylenol. Elevated alk phos: -Admit AP 173, stable around 190. -19May abdominal u/s noted cholelithiasis without evidence of cholecystitis and a cirrhotic liver morphology. -Non-tender abdomen. -Monitor for now. Splenomegaly: -Including a 6.8 cm heterogeneous focus on 19May u/s. May be post-traumatic from prior fall. Chronic thrombocytopenia: - Admit platelets 116. -Seen by hematology in 2018, noted thrombocytopenia likely related to Hepatitis C (s/p blood transfusion). -Trended as low as 86. Monitoring. Hyperlipidemia, ? CHF: -Continue home Zocor. -20May TTE noted EF 55-60%, normal LVSF, no significant change since April 2019. -Is on Lasix 10 mg at home. -Started on Lasix 20 mg BID for hyponatremia as above. Iron deficiency anemia: -Admit Hb 12.5 (MCV 83), stable. -No evidence of acute bleeding. -Suspect anemia of chronic inflammation as well. Diabetes type 2: -March 2020 HbA1c 6.1. -Held home glargine, aspart, and metformin. -Held home aspirin due to blood in CSF. -Placed on insulin sliding scale. Mixed restrictive and obstructive lung disease, chronic hypoxic resp. failure: -Is on 2-3 L NC oxygen at home (though not requiring it as inpatient). -Sees Dr. Tomas of pulmonology as outpatient. -Continue home albuterol prn. Chronic kidney disease: -Cr around 0.7 as inpatient. Mild tardive dyskinesia: -Thought to be related to home Abilify. -Follows with psychiatry as an outpatient. -Per neurology, his home gabapentin dosing was decreased from QID to TID and his home amantadine was discontinued. Alcoholic and compensated hepatitis C cirrhosis: -Alcohol cessation in 2007. -[facility]. -Normal LFTs. Opiate-associated constipation: -Tapentadol BID was stopped on last discharge and swapped with new oxycodone. -Held home bisacodyl and miralax. -Continue home docusate. - Held narcotics due to AMS. Obstructive sleep apnea: -Reportedly wears BiPAP intermittently. -Ordered for inpatient. Microscopic hematuria: -On prior discharge, plan was for outpatient cystoscopy with urology. No UA RBCs seen on this admit. BPH: -Continue home finasteride Depression, anxiety: -Continue home buspirone and trazodone. -Lowered Effexor due to hyponatremia. Consider lowering/stopping trazodone as well. Code status: Full code. Diet: DM2. Fluid restrict to 2000 mL/day. DVT prophy: Holding lovenox for now. SCDs. PT/OT: PT noted he stands with maximum assistance. Leans to the left when standing. Dispo: Admitted to med surg tele. Daughter is Niyah ([phone]), lives in [place]. COVID test re-ordered on 04/15 (2) Hyponatremia: (3) Hypertension: (4) Elevated alkaline phosphatase level: (5) Cholelithiasis: (6) Iron deficiency anemia: (7) Hyperlipidemia: (8) Diabetes mellitus: (9) Diabetic peripheral neuropathy: (10) Mixed restrictive and obstructive lung disease: (11) Chronic kidney disease, stage II (mild): (12) CHF (congestive heart failure): (13) Tardive dyskinesia: (14) Cirrhosis, alcoholic: (15) Compensated HCV cirrhosis: (16) Constipation due to pain medication: (17) TERI (obstructive sleep apnea): (18) Benign prostatic hyperplasia with urinary obstruction: (19) Anxiety: (20) Depression: (21) Second degree atrioventricular block, Mobitz (type) I: (22) Metabolic encephalopathy: (23) Right-sided lacunar infarction: Admission and Anticipated Discharge Date Admission Date: April 03, 2020 Supervising Physician Co-Signing Physician Notes I personally examined the patient and verified all massey points of history and exam, discussed case, and agree with decision making with Dr Ferris. doing ok. no new physical complaints. awaiting restart of dispo planning tomorrow. had repeat COVID swab sent today for clearance for SNF placement vitals noted nad heent nc at mmm breathing unlabored no accessory muscles good effort skin no rashes no pallor or icterus - Altered mental status multifactorial - small bleed vs inflammation (see below) + polypharmacy to make progress in polypharmacy reduced gabapentin to 600mg and abilify to 7.5mg - in a few days if he's still doing well can consider reducing further) + changing environments + ?degree of dementia at baseline? awaiting rehab placement - appears that SNF level care will be his disposition - case management working with dtr on choices. will likely unfortunately not be able to go until sometime next week - therefore sent repeat COVID swab since one from 04/05 not likely to be recent enough then for most facilities. -blood in CSF unclear if leftover from viral encephalitis process or from small bleed from falls - but since clinically improving and stable//cultures negative//no signs of ongoing bleed, treatment for both would be supportive - continues to look clinically stable - SIADH: nephrology following sodium levels reasonable overall, follow BMP periodically continue sodium and lasix, continue to follow otherwise as above Subjective Pt seen this AM. AAOx1. Review of Systems Review of Systems: Unobtainable due to cognitive status Physical Exam Physical Exam: General: Alert, orientedx1. No acute distress, resting comfortably. Skin: No noted rashes or bruises Psych: pleasantly demented Neuro: No gross deficits HEENT: NC/AT Chest: Nontender to palpation. CV: RRR, Normal s1, s2. No murmurs appreciated Resp: Breath sounds clear bilaterally, no increased effort of breathing Abdomen: BS+. Soft, nontender, nondistended. No guarding. No organomegaly appreciated. Extremities: some edema in lower extremities bilaterally. Results & Data Results & Data ([facility]) Vital Signs (Past 12 Hours) Vital Signs Temp Pulse Pulse Resp BP Pulse Ox 04/15/20 08:12 37.9 C H 91 H 18 135/62 93 04/15/20 04:11 36.6 C 88 22 146/62 H 94 04/14/20 23:37 89 04/14/20 22:26 37.0 C 90 20 183/77 H 96 04/14/20 22:16 37.0 C 90 20 183/77 H 96 Resident Activity Tracking Resident Involvement: Resident Care Provided Care Provided: Adult Hospital Medicine (1) CHF (congestive heart failure) Heart failure chronicity: unspecified Heart failure type: unspecified Qualified Code(s): I50.9 - Heart failure, unspecified (2) AMS (altered mental status) Altered mental status type: somnolence Qualified Code(s): R40.0 - Somnolence
--- NOTE | 2020-04-15 16:10 | Billing Data ---
Date of Service April 15, 2020 Coding Level of Care Code 11303 Subseq Hosp Care Lvl 2
[2020-04-15] MEDS: SIMVASTATIN 40 MG TAB PO SCH (21:22)
[2020-04-15] MEDS: TRAZODONE HCL 50 MG TAB PO SCH (21:23)
[2020-04-15] MEDS: AMLODIPINE BESYLATE 5 MG TAB PO SCH (21:24)
[2020-04-15] MEDS: ARIPiprazole 5 MG TAB PO SCH (21:24)
[2020-04-16 07:51] LABS: BUN Creatinine Ratio 13.5 (10-20); Calcium 9.1 mg/dl (8.5-10.1); Creatinine Clr Calc Pharmacy 98.1 ml/min; Est GFR (African American) 99.5; Est GFR (Non-African American) 85.9; Potassium 3.6 mmol/L (3.5-5.1)
[2020-04-16] MEDS: INSULIN ASPART 100 UNITS/ML 3 ML PEN SC SCH ×4 (08:26→20:44)
[2020-04-16] MEDS: MAGNESIUM OXIDE 400 MG TAB PO SCH (08:27)
[2020-04-16] MEDS: BusPIRone 15 MG TAB PO SCH ×2 (08:27→20:50)
[2020-04-16] MEDS: FINASTERIDE 5 MG TAB PO SCH (08:28)
[2020-04-16] MEDS: CHOLECALCIFEROL 1,000 UNITS 25 MCG TAB PO SCH (08:28)
[2020-04-16] MEDS: VENLAFAXINE HCL XR 75 MG CAPXR PO SCH (08:28)
[2020-04-16] MEDS: DOCUSATE SODIUM 100 MG CAP PO SCH ×2 (08:28→20:52)
[2020-04-16] MEDS: FUROSEMIDE 20 MG TAB PO SCH ×2 (08:28→17:29)
[2020-04-16] MEDS: GABAPENTIN 600 MG TAB PO SCH ×3 (08:28→20:51)
[2020-04-16] MEDS: VITAMIN B COMPLEX TAB PO SCH (08:29)
[2020-04-16] MEDS: ACETAMINOPHEN 500 MG TAB PO SCH ×2 (08:29→20:51)
[2020-04-16] MEDS: SODIUM CHLORIDE 1 GM TABLET PO SCH ×2 (08:30→20:51)
[2020-04-16] MEDS: CALCIUM 600MG + VIT D 400 IU TAB PO SCH (08:30)
--- NOTE | 2020-04-16 11:25 | Hospitalist Progress Note ---
Date of Service April 16, 2020 Assessment & Plan (1) AMS (altered mental status): 79-year-old male was admitted on 03 Apr 2020 via EMS (from [facility]) for AMS likely multifactorial in nature. Stable for discharge to SNF- accepted [facility] for [facility]. Repeat Covid neg. Metabolic encephalopathy - resolved -Multifactorial in origin to include hyponatremia, polypharmacy (lowered dose gabapentin to 600 TID, abilify to 7.5), recent CVA, and concussive symptoms after fall, baseline dementia -22May CTA head and neck are non-acute - right frontal lobe infarct - unclear timing. -22May LP noted evidence of bleeding--from viral encephalitis vs bleeding from falls -[employer] CSF PCR testing was negative. -CSF culture with NGTD. -24May stopped empiric vancomycin + cefepime (received four days tx) and empiric acyclovir (received three days tx). -currently at baseline Right frontal lobe lacunar infarct - possibly before fall Small Intraventricular bleed - possibly from fall -unclear timing. -risk reduction - BP control. -On aspirin at home -On SCD for DVT proph -check A1c -check lipid profile - add statin. Hyponatremia-improved -Admit sodium 125. Na in mid 130s recently -Hx of this since perhaps January 2019 -Appreciate Nephrology recs: -Likely secondary to SIADH -continue 1g PO BID NaCl administration- consider switching to 2g BID with Na <135 -continue Lasix 20mg PO BID for free water excretion -continue Effexor at decreased 225mg daily dose -continue fluid restriction -consider chest CT to look for occult malignancy causing SIADH vs further adjustment of his Effexor +/- trazodone. Urinary incontinence: -Daughter says this is a relatively new finding. -UCx grew Alpha strep - Should be covered by antibiotics he has already received. -Condom catheter in place - check bladder scan. Hypertension: -Increased home amlodipine to 7.5mg qPM -Resumed home spironolactone 25 mg BID -On hydralazine prn. Longstanding sensory ataxia / diabetic peripheral neuropathy, recent fall and left rib fractures: -Holding opiates due to AMS. On scheduled Tylenol. Gabapentin decreased as above Splenomegaly: -Including a 6.8 cm heterogeneous focus on 19May u/s. May be post-traumatic from prior fall. Chronic thrombocytopenia: - Admit platelets 116. -Seen by hematology in 2018, noted thrombocytopenia likely related to Hepatitis C (s/p blood transfusion). -Trended as low as 86. Monitoring. Hyperlipidemia, ? diastolic dysfunction: -Continue home Zocor. -20May TTE noted EF 55-60%, normal LVSF, no significant change since April 2019. -Is on Lasix 10 mg at home. Started on Lasix 20 mg BID for hyponatremia as above. Iron deficiency anemia: -Admit Hb 12.5 (MCV 83), stable. -No evidence of acute bleeding. -Suspect anemia of chronic inflammation as well. Diabetes type 2: -March 2020 HbA1c 6.1. -Held home glargine, aspart, and metformin. -Held home aspirin due to blood in CSF. -Placed on insulin sliding scale. Mixed restrictive and obstructive lung disease, chronic hypoxic resp. failure: -Is on 2-3 L NC oxygen at home (though not requiring it as inpatient). -Sees Dr. Tomas of pulmonology as outpatient. -Continue home albuterol prn. Mild tardive dyskinesia: -Thought to be related to home Abilify. -Follows with psychiatry as an outpatient. -Per neurology, his home gabapentin dosing was decreased from QID to TID and his home amantadine was discontinued. Alcoholic and compensated hepatitis C cirrhosis: -Alcohol cessation in 2007. -Previously followed by [facility]. -Normal LFTs. Opiate-associated constipation: -Tapentadol BID was stopped on last discharge and swapped with new oxycodone. -Held home bisacodyl and miralax. -Continue home docusate. - Held narcotics due to AMS. Obstructive sleep apnea: -Reportedly wears BiPAP intermittently. -Ordered for inpatient. Microscopic hematuria: -On prior discharge, plan was for outpatient cystoscopy with urology. No UA RBCs seen on this admit. BPH: -Continue home finasteride Depression, anxiety: -Continue home buspirone and trazodone. -Lowered Effexor due to hyponatremia. Consider lowering/stopping trazodone as well. Code status: Full code. Diet: DM2. Fluid restrict to 2000 mL/day. DVT prophy: Holding lovenox for now. SCDs. Dispo: Med Tele. Daughter is Niyah ([phone]), lives in [place]. COVID test re-ordered on 04/15, negative. [facility] accepted pt for tomorrow. Admission and Anticipated Discharge Date Admission Date: April 03, 2020 Supervising Physician Co-Signing Physician Notes Resident Physician Supervision Note: I independently interviewed and examined the patient and verified the massey history and physical, reviewed labs and image studies, discussed the case with the resident Dr. Daniel and agree with the findings and care plan. Subjective 79 yo M found in bed this AM in NAD. No reported overnight events. A&Ox2. Still patiently awaiting snf placement. Pt with no other acute concerns or complaints. Review of Systems Review of Systems: All systems reviewed & are unremarkable except as noted in HPI & below Physical Exam Constitutional: WD/WN, vitals as above Eyes: PERRL, conjunctivae normal, anicteric sclerae Respiratory: normal respiratory effort; no respiratory distress Cardiovascular: RRR, no murmur, no edema Gastrointestinal (Abdomen): normal bowel sounds, soft, nontender, no hepatosplenomegaly Skin: no rashes, warm and dry Psychiatric: Orientation: + not oriented x 3 (A&Ox2) Lymphatic: trace LE edema Results & Data Results & Data [facility]) Vital Signs (Past 12 Hours) Vital Signs Temp Pulse Pulse Resp BP Pulse Ox 04/16/20 07:25 36.8 C 77 20 138/70 95 04/16/20 07:00 75 04/16/20 04:00 36.5 C 81 16 159/77 H 95 04/16/20 03:49 74 14 94 04/16/20 00:58 88 04/15/20 23:51 36.5 C 85 18 132/64 95 Laboratory Results Laboratory Results - last 24 hr 04/15/20 04/15/20 04/15/20 08:45 11:28 16:37 Sodium Potassium Chloride Carbon Dioxide Anion Gap BUN Creatinine Est Cr Clr Drug Dosing Est GFR ( Amer) Est GFR (Non-Af Amer) BUN/Creatinine Ratio Glucose POC Glucose 208 H 177 H Calcium SARS-CoV-2 RNA (RT-PCR) NEGATIVE 04/15/20 04/16/20 04/16/20 20:36 06:55 07:30 Sodium 136 Potassium 3.6 Chloride 99 Carbon Dioxide 32 Anion Gap 5.0 BUN 11 Creatinine 0.78 Est Cr Clr Drug Dosing 98.1 Est GFR ( Amer) 99.5 Est GFR (Non-Af Amer) 85.9 BUN/Creatinine Ratio 13.5 Glucose 131 H POC Glucose 170 H 182 H Calcium 9.1 SARS-CoV-2 RNA (RT-PCR) Medications Administered Current Inpatient Medications Acetaminophen (Tylenol) 1,000 mg PO BID [facility] Stop: 05/03/20 20:59 Last Admin: 04/16/20 08:29 Dose: 1,000 mg Documented by: Albuterol (Ventolin Hfa) 2 puffs INH Q4H PRN PRN Reason: Shortness Of Breath Or Wheezing Stop: 05/03/20 16:23 Amlodipine Besylate (Norvasc) 7.5 mg PO PM [facility] Stop: 05/11/20 20:59 Last Admin: 04/15/20 21:24 Dose: 7.5 mg Documented by: Aripiprazole (Abilify) 7.5 mg PO HS [facility] Stop: 05/13/20 20:59 Last Admin: 04/15/20 21:24 Dose: 7.5 mg Documented by: Aspirin (Ecotrin Ectab) 81 mg PO QAM [facility] Stop: 05/04/20 08:59 Last Admin: 04/05/20 08:48 Dose: 81 mg Documented by: Buspirone HCl (Buspar) 30 mg PO BID [facility] Stop: 05/03/20 20:59 Last Admin: 04/16/20 08:27 Dose: 30 mg Documented by: Dextrose (Dextrose 50%) 25 - 50 ml IV UD PRN; Protocol PRN Reason: Hypoglycemia Protocol Stop: 05/03/20 16:23 Docusate Sodium (Colace) 100 mg PO BID [facility] Stop: 05/03/20 20:59 Last Admin: 04/16/20 08:28 Dose: 100 mg Documented by: Finasteride (Proscar) 5 mg PO QAM [facility] Stop: 05/04/20 08:59 Last Admin: 04/16/20 08:28 Dose: 5 mg Documented by: Fluticasone Propionate (Flonase) 1 sprays NA DAILY PRN PRN Reason: Nasal Congestion Stop: 05/03/20 16:23 Furosemide (Lasix) 20 mg PO BID17 [facility] Stop: 05/07/20 16:59 Last Admin: 04/16/20 08:28 Dose: 20 mg Documented by: Gabapentin (Neurontin) 600 mg PO TID [facility] Stop: 05/13/20 20:59 Last Admin: 04/16/20 08:28 Dose: 600 mg Documented by: Glucagon (Glucagen) 1 mg SQ UD PRN; Protocol PRN Reason: Hypoglycemia Protocol Stop: 05/03/20 16:23 Glucose (Dex4 Glucose) 4 - 8 tabs PO UD PRN; Protocol PRN Reason: Hypoglycemia Protocol Stop: 05/03/20 16:23 Glucose (Glucose 40%) 15 - 30 gm PO UD PRN; Protocol PRN Reason: Hypoglycemia Protocol Stop: 05/03/20 16:23 Hydralazine HCl (Hydralazine Hcl) 10 mg IV Q8H PRN PRN Reason: Hypertension Stop: 05/03/20 16:23 Last Admin: 04/14/20 22:59 Dose: 10 mg Documented by: Insulin Aspart (Novolog Flexpen) 0 units SC ACHS [facility] Stop: 05/03/20 16:29 Last Admin: 04/16/20 08:26 Dose: 3 units Documented by: Magnesium Oxide (Mag-Ox) 400 mg PO QAM [facility] Stop: 05/04/20 08:59 Last Admin: 04/16/20 08:27 Dose: 400 mg Documented by: Miscellaneous (Order Awaiting Action) 1 ea N/A QS [facility] Stop: 05/04/20 00:00 Last Admin: 04/16/20 08:30 Dose: Not Given Documented by: Miscellaneous (Carbohydrates For Hypoglycemia) 15 - 30 gm PO UD PRN PRN Reason: Hypoglycemia Protocol Stop: 05/03/20 16:23 Multivitamins/Minerals (Caltrate Plus) 1 tab PO QAM [facility] Stop: 05/04/20 08:59 Last Admin: 04/16/20 08:30 Dose: 1 tab Documented by: Simvastatin (Zocor) 40 mg PO QPM [facility] Stop: 05/03/20 20:59 Last Admin: 04/15/20 21:22 Dose: 40 mg Documented by: Sodium Chloride (Sodium Chloride) 1 gm PO BID [facility] Stop: 05/14/20 20:59 Last Admin: 04/16/20 08:30 Dose: 1 gm Documented by: Spironolactone (Aldactone) 25 mg PO BID [facility] Stop: 05/16/20 20:59 Trazodone HCl (Desyrel) 150 mg PO [facility] Stop: 05/03/20 20:59 Last Admin: 04/15/20 21:23 Dose: 150 mg Documented by: Venlafaxine HCl (Effexor Extended Release) 225 mg PO [facility] Stop: 05/08/20 08:59 Last Admin: 04/16/20 08:28 Dose: 225 mg Documented by: Vitamin B Complex (Vitamin B Complex) 1 tab PO [facility] Stop: 05/04/20 08:59 Last Admin: 04/16/20 08:29 Dose: 1 tab Documented by: Vitamin D (Vitamin D3) 2,000 units PO [facility] Stop: 05/04/20 08:59 Last Admin: 04/16/20 08:28 Dose: 2,000 units Documented by: Resident Activity Tracking Resident Involvement: Resident Care Provided Care Provided: Adult Hospital Medicine (1) AMS (altered mental status) Altered mental status type: somnolence Qualified Code(s): R40.0 - Somnolence
[2020-04-16] MEDS: AMLODIPINE BESYLATE 5 MG TAB PO SCH (20:49)
[2020-04-16] MEDS: TRAZODONE HCL 50 MG TAB PO SCH (20:50)
[2020-04-16] MEDS: ARIPiprazole 5 MG TAB PO SCH (20:50)
[2020-04-16] MEDS: SPIRONOLACTONE 25 MG TAB PO SCH (20:51)
[2020-04-16] MEDS: SIMVASTATIN 40 MG TAB PO SCH (20:52)
[2020-04-17 06:38] LABS: Hematocrit (blood only) 33.4 % (42-52); Hemoglobin 11.5 g/dL (14.0-18.0); Mean Corpuscular Hemoglobin 30.7 pg (25-34); Mean Corpuscular Hgb Conc 34.4 g/dL (32-36); Mean Corpuscular Volume 89.3 fL (80-100); RDW Coefficient of Variation 14.3 % (11.5-14.5); RDW Standard Deviation 46.5 fL (36.4-46.3); Red Blood Count 3.74 M/uL (4.7-6.1)
[2020-04-17 06:51] LABS: Mean Platelet Volume 10.5 fL (7.4-10.4); Platelet Count 84 K/uL (130-400)
[2020-04-17 07:05] LABS: Basophils # (auto) 0.02 K/uL (0-0.2); Basophils % (auto) 0.6 %; Eosinophils # (auto) 0.03 K/uL (0-0.5); Eosinophils % (auto) 0.8 %; Lymphocytes # (auto) 0.97 K/uL (1.2-3.4); Lymphocytes % (auto) 26.9 %; Monocytes % (auto) 8.3 %; Neutrophils # (auto) 2.28 K/uL (1.4-6.5); Neutrophils % (auto) 63.4 %
[2020-04-17 07:06] LABS: BUN Creatinine Ratio 12.2 (10-20); Creatinine Clr Calc Pharmacy 100.6 ml/min; Est GFR (African American) 100.6; Est GFR (Non-African American) 86.8; Potassium 3.5 mmol/L (3.5-5.1)
[2020-04-17 07:39] LABS: Estimated Average Glucose 117 mg/dl; Hemoglobin A1C 5.7 % (4.5-5.6)
[2020-04-17] MEDS: SPIRONOLACTONE 25 MG TAB PO SCH ×2 (07:47→20:35)
[2020-04-17] MEDS: DOCUSATE SODIUM 100 MG CAP PO SCH ×2 (07:47→21:43)
[2020-04-17] MEDS: VITAMIN B COMPLEX TAB PO SCH (07:47)
[2020-04-17] MEDS: GABAPENTIN 600 MG TAB PO SCH ×3 (07:47→20:35)
[2020-04-17] MEDS: MAGNESIUM OXIDE 400 MG TAB PO SCH (07:48)
[2020-04-17] MEDS: FINASTERIDE 5 MG TAB PO SCH (07:48)
[2020-04-17] MEDS: BusPIRone 15 MG TAB PO SCH ×2 (07:48→20:35)
[2020-04-17] MEDS: CHOLECALCIFEROL 1,000 UNITS 25 MCG TAB PO SCH (07:48)
[2020-04-17] MEDS: SODIUM CHLORIDE 1 GM TABLET PO SCH ×2 (07:48→20:36)
[2020-04-17] MEDS: ACETAMINOPHEN 500 MG TAB PO SCH ×2 (07:48→20:36)
[2020-04-17] MEDS: CALCIUM 600MG + VIT D 400 IU TAB PO SCH (07:49)
[2020-04-17] MEDS: FUROSEMIDE 20 MG TAB PO SCH ×2 (07:49→17:28)
[2020-04-17] MEDS: VENLAFAXINE HCL XR 75 MG CAPXR PO SCH (07:49)
[2020-04-17] MEDS: INSULIN ASPART 100 UNITS/ML 3 ML PEN SC SCH ×4 (08:46→21:41)
[2020-04-17] MEDS ORDERED: ATORVASTATIN 40 MG TAB PO SCH (09:00)
--- NOTE | 2020-04-17 16:31 | Hospitalist Progress Note ---
Date of Service April 17, 2020 Assessment & Plan (1) AMS (altered mental status): 79-year-old male was admitted on 03 Apr 2020 via EMS (from [facility]) for AMS likely multifactorial in nature. Stable for discharge to SNF- accepted at [facility]--awaiting insurance auth. Repeat Covid neg. Metabolic encephalopathy - resolved -Multifactorial in origin to include hyponatremia, polypharmacy (lowered dose gabapentin to 600 TID, abilify to 7.5), recent CVA, and concussive symptoms after fall, baseline dementia -22May CTA head and neck are non-acute - right frontal lobe infarct - unclear timing. -22May LP noted evidence of bleeding--from viral encephalitis vs bleeding from falls -[employer] CSF PCR testing was negative. -CSF culture with NGTD. -24May stopped empiric vancomycin + cefepime (received four days tx) and empiric acyclovir (received three days tx). -currently at baseline Right frontal lobe lacunar infarct - possibly before fall Small Intraventricular bleed - possibly from fall -unclear timing -risk reduction - BP control. -On SCD for DVT proph -A1c 5.7. Lipid Profile WNL -On aspirin and simvastatin for medical therapy Hyponatremia-improved -Admit sodium 125. Na in mid-high 130s recently -Hx of this since perhaps January 2019 -Appreciate Nephrology recs: -Likely secondary to SIADH -continue 1g PO BID NaCl administration- consider switching to 2g BID with Na <135 -continue Lasix 20mg PO BID for free water excretion -continue Effexor at decreased 225mg daily dose -continue fluid restriction -consider chest CT to look for occult malignancy causing SIADH vs further adj ustment of his Effexor +/- trazodone. Urinary incontinence: -UCx grew Alpha strep - Should be covered by antibiotics he has already received. -Condom catheter in place - bladder scanned for ~360ml 04/16 -Daughter says this is a relatively new finding. In talking with her, believe this is likely due to overflow incontinence w/ h/o BPH -can be worked up with urology as outpt Hypertension: -Increased home amlodipine to 7.5mg qPM -Resumed home spironolactone 25 mg BID -On hydralazine prn. Longstanding sensory ataxia / diabetic peripheral neuropathy, recent fall and left rib fractures: -Holding opiates due to AMS. On scheduled Tylenol. Gabapentin decreased as above Splenomegaly: -Including a 6.8 cm heterogeneous focus on 19May u/s. May be post-traumatic from prior fall. Chronic thrombocytopenia: - Admit platelets 116. -Seen by hematology in 2017, noted thrombocytopenia likely related to Hepatitis C (s/p blood transfusion). -Trended as low as 86. Monitoring. Hyperlipidemia, ? diastolic dysfunction: -Continue home Zocor. -20May TTE noted EF 55-60%, normal LVSF, no significant change since April 2019. -Is on Lasix 10 mg at home. Started on Lasix 20 mg BID for hyponatremia as above. Iron deficiency anemia: -Admit Hb 12.5 (MCV 83), stable. -No evidence of acute bleeding. -Suspect anemia of chronic inflammation as well. Diabetes type 2: -March 2020 HbA1c 6.1. -Held home glargine, aspart, and metformin. -Held home aspirin due to blood in CSF. -Placed on insulin sliding scale. Mixed restrictive and obstructive lung disease, chronic hypoxic resp. failure: -Is on 2-3 L NC oxygen at home (though not requiring it as inpatient). -Sees Dr. Tomas of pulmonology as outpatient. -Continue home albuterol prn. Mild tardive dyskinesia: -Thought to be related to home Abilify. -Follows with psychiatry as an outpatient. -Per neurology, his home gabapentin dosing was decreased from QID to TID and his home amantadine was discontinued. Alcoholic and compensated hepatitis C cirrhosis: -Alcohol cessation in 2007. -Previously followed [facility]. -Normal LFTs. Opiate-associated constipation: -Tapentadol BID was stopped on last discharge and swapped with new oxycodone. -Held home bisacodyl and miralax. -Continue home docusate. - Held narcotics due to AMS. Obstructive sleep apnea: -Reportedly wears BiPAP intermittently. -Ordered for inpatient. Microscopic hematuria: -On prior discharge, plan was for outpatient cystoscopy with urology. No UA RBCs seen on this admit. BPH: -Continue home finasteride Depression, anxiety: -Continue home buspirone and trazodone. -Lowered Effexor due to hyponatremia. Consider lowering/stopping trazodone as well. Code status: Full code. Diet: DM2. Fluid restrict to 2000 mL/day. DVT prophy: Holding lovenox for now. SCDs. Dispo: Med Tele. Daughter is Niyah ([phone]), lives in [place]. COVID test re-ordered on 04/15, negative. [facility] accepted. Awaiting insurance auth. Admission and Anticipated Discharge Date Admission Date: April 03, 2020 Supervising Physician Co-Signing Physician Notes Resident Physician Supervision Note: I independently interviewed and examined the patient and verified the massey history and physical, reviewed labs and image studies, discussed the case with the resident Dr. Daniel and agree with the findings and care plan. Subjective 79 yo M found in bed this AM in NAD. No reported overnight events. A&Ox2. Still patiently awaiting snf placement. Pt with no other acute concerns or complaints. Review of Systems Review of Systems: All systems reviewed & are unremarkable except as noted in HPI & below Physical Exam Constitutional: WD/WN, vitals as above Eyes: PERRL, conjunctivae normal, anicteric sclerae Respiratory: normal respiratory effort; no respiratory distress Cardiovascular: RRR, no murmur, no edema Gastrointestinal (Abdomen): normal bowel sounds, soft, nontender, no hepatosplenomegaly Skin: no rashes, warm and dry Psychiatric: Orientation: + not oriented x 3 (A&Ox2) Lymphatic: trace LE Edema Results & Data Results & Data ([facility]) Vital Signs (Past 12 Hours) Vital Signs Temp Pulse Resp BP Pulse Ox 04/17/20 15:48 37.4 C 98 H 18 152/72 H 94 04/17/20 11:25 37.4 C 91 H 18 145/78 H 97 04/17/20 07:27 37 C 86 16 152/74 H 95 Laboratory Results Laboratory Results - last 24 hr 04/16/20 04/16/20 04/17/20 16:30 20:12 05:42 WBC 3.60 L RBC 3.74 L Hgb 11.5 L Hct 33.4 L MCV 89.3 MCH 30.7 MCHC 34.4 RDW Std Deviation 46.5 H RDW Coeff of Ja 14.3 Plt Count 84 L MPV 10.5 H Immature Gran % (Auto) 0.0 Neut % (Auto) 63.4 Lymph % (Auto) 26.9 [place] % (Auto) 8.3 Eos % (Auto) 0.8 Baso % (Auto) 0.6 Immature Gran # (Auto) 0.00 Neut # (Auto) 2.28 Lymph # (Auto) 0.97 L [place] # (Auto) 0.30 Eos # (Auto) 0.03 Baso # (Auto) 0.02 Sodium Potassium Chloride Carbon Dioxide Anion Gap BUN Creatinine Est Cr Clr Drug Dosing Est GFR ( Amer) Est GFR (Non-Af Amer) BUN/Creatinine Ratio Glucose POC Glucose 201 H 182 H Estimat Average Glucose Hemoglobin A1c Calcium Triglycerides Cholesterol LDL Cholesterol, Calc VLDL Cholesterol, Calc HDL Cholesterol Cholesterol/HDL Ratio 04/17/20 04/17/20 04/17/20 05:42 05:42 07:36 WBC RBC Hgb Hct MCV MCH MCHC RDW Std Deviation RDW Coeff of Ja Plt Count MPV Immature Gran % (Auto) Neut % (Auto) Lymph % (Auto) [place] % (Auto) Eos % (Auto) Baso % (Auto) Immature Gran # (Auto) Neut # (Auto) Lymph # (Auto) [place] # (Auto) Eos # (Auto) Baso # (Auto) Sodium 137 Potassium 3.5 Chloride 101 Carbon Dioxide 31 Anion Gap 5.0 BUN 9 Creatinine 0.76 Est Cr Clr Drug Dosing 100.6 Est GFR ( Amer) 100.6 Est GFR (Non-Af Amer) 86.8 BUN/Creatinine Ratio 12.2 Glucose 130 H POC Glucose 166 H Estimat Average Glucose 117 Hemoglobin A1c 5.7 H Calcium 9.0 Triglycerides 76 Cholesterol 103 LDL Cholesterol, Calc 35 VLDL Cholesterol, Calc 15 HDL Cholesterol 53 Cholesterol/HDL Ratio 2 04/17/20 11:43 WBC RBC Hgb Hct MCV MCH MCHC RDW Std Deviation RDW Coeff of Ja Plt Count MPV Immature Gran % (Auto) Neut % (Auto) Lymph % (Auto) [place] % (Auto) Eos % (Auto) Baso % (Auto) Immature Gran # (Auto) Neut # (Auto) Lymph # (Auto) [place] # (Auto) Eos # (Auto) Baso # (Auto) Sodium Potassium Chloride Carbon Dioxide Anion Gap BUN Creatinine Est Cr Clr Drug Dosing Est GFR ( Amer) Est GFR (Non-Af Amer) BUN/Creatinine Ratio Glucose POC Glucose 184 H Estimat Average Glucose Hemoglobin A1c Calcium Triglycerides Cholesterol LDL Cholesterol, Calc VLDL Cholesterol, Calc HDL Cholesterol Cholesterol/HDL Ratio Medications Administered Current Inpatient Medications Acetaminophen (Tylenol) 1,000 mg PO BID [facility] Stop: 05/03/20 20:59 Last Admin: 04/17/20 07:48 Dose: 1,000 mg Documented by: Albuterol (Ventolin Hfa) 2 puffs INH Q4H PRN PRN Reason: Shortness Of Breath Or Wheezing Stop: 05/03/20 16:23 Amlodipine Besylate (Norvasc) 7.5 mg PO PM [facility] Stop: 05/11/20 20:59 Last Admin: 04/16/20 20:49 Dose: 7.5 mg Documented by: Aripiprazole (Abilify) 7.5 mg PO HS [facility] Stop: 05/13/20 20:59 Last Admin: 04/16/20 20:50 Dose: 7.5 mg Documented by: Aspirin (Ecotrin Ectab) 81 mg PO QAM [facility] Stop: 05/04/20 08:59 Last Admin: 04/05/20 08:48 Dose: 81 mg Documented by: Buspirone HCl (Buspar) 30 mg PO BID [facility] Stop: 05/03/20 20:59 Last Admin: 04/17/20 07:48 Dose: 30 mg Documented by: Dextrose (Dextrose 50%) 25 - 50 ml IV UD PRN; Protocol PRN Reason: Hypoglycemia Protocol Stop: 05/03/20 16:23 Docusate Sodium (Colace) 100 mg PO BID [facility] Stop: 05/03/20 20:59 Last Admin: 04/17/20 07:47 Dose: 100 mg Documented by: Finasteride (Proscar) 5 mg PO QAM [facility] Stop: 05/04/20 08:59 Last Admin: 04/17/20 07:48 Dose: 5 mg Documented by: Fluticasone Propionate (Flonase) 1 sprays NA DAILY PRN PRN Reason: Nasal Congestion Stop: 05/03/20 16:23 Furosemide (Lasix) 20 mg PO BID17 [facility] Stop: 05/07/20 16:59 Last Admin: 04/17/20 07:49 Dose: 20 mg Documented by: Gabapentin (Neurontin) 600 mg PO TID [facility] Stop: 05/13/20 20:59 Last Admin: 04/17/20 13:50 Dose: 600 mg Documented by: Glucagon (Glucagen) 1 mg SQ UD PRN; Protocol PRN Reason: Hypoglycemia Protocol Stop: 05/03/20 16:23 Glucose (Dex4 Glucose) 4 - 8 tabs PO UD PRN; Protocol PRN Reason: Hypoglycemia Protocol Stop: 05/03/20 16:23 Glucose (Glucose 40%) 15 - 30 gm PO UD PRN; Protocol PRN Reason: Hypoglycemia Protocol Stop: 05/03/20 16:23 Hydralazine HCl (Hydralazine Hcl) 10 mg IV Q8H PRN PRN Reason: Hypertension Stop: 05/03/20 16:23 Last Admin: 04/14/20 22:59 Dose: 10 mg Documented by: Insulin Aspart (Novolog Flexpen) 0 units SC ACHS [facility] Stop: 05/03/20 16:29 Last Admin: 04/17/20 12:47 Dose: 5 units Documented by: Magnesium Oxide (Mag-Ox) 400 mg PO QAM [facility] Stop: 05/04/20 08:59 Last Admin: 04/17/20 07:48 Dose: 400 mg Documented by: Miscellaneous (Order Awaiting Action) 1 ea N/A QS [facility] Stop: 05/04/20 00:00 Last Admin: 04/17/20 07:49 Dose: Not Given Documented by: Miscellaneous (Carbohydrates For Hypoglycemia) 15 - 30 gm PO UD PRN PRN Reason: Hypoglycemia Protocol Stop: 05/03/20 16:23 Multivitamins/Minerals (Caltrate Plus) 1 tab PO QAM [facility] Stop: 05/04/20 08:59 Last Admin: 04/17/20 07:49 Dose: 1 tab Documented by: Simvastatin (Zocor) 40 mg PO QPM [facility] Stop: 05/03/20 20:59 Last Admin: 04/16/20 20:52 Dose: 40 mg Documented by: Sodium Chloride (Sodium Chloride) 1 gm PO BID [facility] Stop: 05/14/20 20:59 Last Admin: 04/17/20 07:48 Dose: 1 gm Documented by: Spironolactone (Aldactone) 25 mg PO BID [facility] Stop: 05/16/20 20:59 Last Admin: 04/17/20 07:47 Dose: 25 mg Documented by: Trazodone HCl (Desyrel) 150 mg PO HS [facility] Stop: 05/03/20 20:59 Last Admin: 04/16/20 20:50 Dose: 150 mg Documented by: Venlafaxine HCl (Effexor Extended Release) [facility] Stop: 05/08/20 08:59 Last Admin: 04/17/20 07:49 Dose: 225 mg Documented by: Vitamin B Complex (Vitamin B Complex) 1 tab PO QAM [facility] Stop: 05/04/20 08:59 Last Admin: 04/17/20 07:47 Dose: 1 tab Documented by: Vitamin D (Vitamin D3) 2,000 [facility] Stop: 05/04/20 08:59 Last Admin: 04/17/20 07:48 Dose: 2,000 units Documented by: Resident Activity Tracking Resident Involvement: Resident Care Provided Care Provided: Adult Hospital Medicine (1) AMS (altered mental status) Altered mental status type: somnolence Qualified Code(s): R40.0 - Somnolence
[2020-04-17] MEDS: AMLODIPINE BESYLATE 5 MG TAB PO SCH (20:34)
[2020-04-17] MEDS: SIMVASTATIN 40 MG TAB PO SCH (20:35)
[2020-04-17] MEDS: ARIPiprazole 5 MG TAB PO SCH (20:36)
[2020-04-17] MEDS: TRAZODONE HCL 50 MG TAB PO SCH (21:43)
[2020-04-18 06:46] LABS: BUN Creatinine Ratio 16.4 (10-20); Calcium 9.1 mg/dl (8.5-10.1); Creatinine Clr Calc Pharmacy 104.9 ml/min; Est GFR (African American) 102.8; Est GFR (Non-African American) 88.7; Potassium 3.6 mmol/L (3.5-5.1)
[2020-04-18] MEDS: GABAPENTIN 600 MG TAB PO SCH (07:50)
[2020-04-18] MEDS: FINASTERIDE 5 MG TAB PO SCH (07:51)
[2020-04-18] MEDS: MAGNESIUM OXIDE 400 MG TAB PO SCH (07:51)
[2020-04-18] MEDS: SODIUM CHLORIDE 1 GM TABLET PO SCH (07:51)
[2020-04-18] MEDS: FUROSEMIDE 20 MG TAB PO SCH (07:51)
[2020-04-18] MEDS: SPIRONOLACTONE 25 MG TAB PO SCH (07:51)
[2020-04-18] MEDS: CALCIUM 600MG + VIT D 400 IU TAB PO SCH (07:52)
[2020-04-18] MEDS: VENLAFAXINE HCL XR 75 MG CAPXR PO SCH (07:52)
[2020-04-18] MEDS: BusPIRone 15 MG TAB PO SCH (07:52)
[2020-04-18] MEDS: VITAMIN B COMPLEX TAB PO SCH (07:53)
[2020-04-18] MEDS: CHOLECALCIFEROL 1,000 UNITS 25 MCG TAB PO SCH (07:53)
[2020-04-18] MEDS: DOCUSATE SODIUM 100 MG CAP PO SCH (07:55)
[2020-04-18] MEDS: ACETAMINOPHEN 500 MG TAB PO SCH (07:55)
[2020-04-18] MEDS: INSULIN ASPART 100 UNITS/ML 3 ML PEN SC SCH ×2 (08:46→12:57)
--- NOTE | 2020-04-18 09:35 | Discharge Summary ---
Date of Service April 18, 2020 Admission HPI Per Admitting Provider 79-year-old male was transferred via EMS from [facility] for reported altered mental status and abnormal labs. Further details are currently unavailable. Patient himself is awake, alert, oriented to his name and to being at [facility]. However, he could not recall his full birthday, is unaware of the current date, and says he does not know why he is here. When asked what might be going on, he said it might be "bad vibes". When asked what we could do for him, he asked for some food and coffee. Overall, he does not volunteer any information. On questioning, he denies any pain, recent nausea, vomiting, or diarrhea, and says he is hungry. He says he did not have anything to eat since at least yesterday but details are unclear. Says he had a normal bowel movement yesterday. When asked why he is wearing a diaper, he says he normally does not wear a diaper. Says at times it is hard to urinate but denies any pain doing so. Denies any abdominal pain, chest pain, or difficulty breathing. - Past medical history includes falls, multiple left rib fractures, sensory ataxia, mild tardive dyskinesia, contusion of spleen, alcoholic cirrhosis, diabetes type 2, opiate associated constipation, mixed obstructive and restrictive lung disease, chronic hypoxic respiratory failure, male hypogonadism, obstructive sleep apnea, microscopic hematuria, hypertension, hyperlipidemia, BPH, CHF, depression, anxiety, hepatitis C, osteoarthritis, diverticulitis, chronic kidney disease, diverticulitis, raynaud disease, pectus excavatum, hypertensive retinopathy, borderline open-angle glaucoma, gallstones, upper GI bleed - Surgical history includes partial colectomy, EGD, right cataract surgery, orbital floor repair, sinus surgery - Social history includes smoke cigars. Prior alcohol abuse. Lives at home alone. Principal Diagnosis ams Discharge Exam Constitutional WD/WN, vitals as above Eyes PERRL, conjunctivae normal, anicteric sclerae Respiratory normal respiratory effort; no respiratory distress Cardiovascular RRR, no murmur, no edema Gastrointestinal (Abdomen) normal bowel sounds, soft, nontender, no hepatosplenomegaly Skin no rashes, warm and dry Psychiatric Orientation: + not oriented x 3 (A&Ox2) Lymphatic trace LE Edema Discharge Data Allergies Allergy/AdvReac Type Severity Reaction Status Date / Time cyclobenzaprine Allergy Severe COLLAPSE Verified 04/03/20 11:18 morphine Allergy Intermediate other Verified 04/03/20 11:18 lisinopril Allergy Mild UNKNOWN Verified 04/03/20 11:18 pioglitazone Allergy Mild UNKNOWN Verified 04/03/20 11:18 prochlorperazine Allergy Mild UNKNOWN Verified 04/03/20 11:18 carisoprodol [From Soma] Allergy Unknown ON [facility] Verified 04/03/20 11:18 LIST glimepiride Allergy Unknown Unknown Rxn Verified 04/03/20 11:18 lamotrigine [From Lamictal] Allergy Unknown [facility] LIST Verified 04/03/20 11:18 mirtazapine Allergy Unknown UNKNOWN Verified 04/03/20 11:18 olmesartan [From Benicar] Allergy Unknown ON [facility] Verified 04/03/20 11:18 LIST quetiapine [From Seroquel] Allergy Unknown ON [facility] Verified 04/03/20 11:18 LIST tamsulosin [From Flomax] Allergy Unknown [facility] LIST Verified 04/03/20 11:18 telmisartan [From Micardis] Allergy Unknown ON [facility] Verified 04/03/20 11:18 LIST Dyazide AdvReac Mild WEIGHT Verified 05/22/18 01:18 GAIN,DIZZINESS , FALLS hydrochlorothiazide AdvReac Mild WEIGHT Verified 04/03/20 11:18 GAIN,DIZZINESS , FALLS streptomycin AdvReac Mild REMOTE Verified 04/03/20 11:18 RXN, "TINGLING IN LEGS" DENIES SOB/RASH tazobactam AdvReac Mild REDNESS AT Verified 04/03/20 11:18 INJECTION SITE triamterene AdvReac Mild WEIGHT Verified 04/03/20 11:18 GAIN,DIZZINESS , FALLS propoxyphene AdvReac Unknown UNKNOWN Verified 04/03/20 11:18 Consultations 04/03/20 12:26 ED Decision to Admit Stat 04/03/20 12:58 ED Decision to Admit Stat 04/03/20 16:24 Consult Case Management - Discharge Planning Routine 04/03/20 17:40 Consult Cardiology Routine 04/04/20 15:00 Consult Neurology Routine 04/06/20 10:29 Consult Infectious Diseases Routine Ordered Studies 04/03/20 14:56 US abdomen complete Routine 04/05/20 10:51 MR brain wo/w con Routine 04/06/20 09:00 FL lumbar puncture diagnostic Routine 04/06/20 10:52 CT angio neck with con Routine 04/06/20 15:00 CT angio head w con Routine Hospital Course (1) AMS (altered mental status): 79-year-old male was admitted on 03 Apr 2020 via EMS (from [facility]) for AMS likely multifactorial in nature. The following was the medical management during stay here. Metabolic encephalopathy - resolved -Multifactorial in origin to include hyponatremia, polypharmacy (lowered dose gabapentin to 600 TID, abilify to 7.5), recent CVA, and concussive symptoms after fall, baseline dementia -22May CTA head and neck are non-acute - right frontal lobe infarct - unclear timing. -22May LP noted evidence of bleeding--from viral encephalitis vs bleeding from falls -[employer] CSF PCR testing was negative. -CSF culture with NGTD. -24May stopped empiric vancomycin + cefepime (received four days tx) and empiric acyclovir (received three days tx). -currently at baseline Right frontal lobe lacunar infarct - possibly before fall Small Intraventricular bleed - possibly from fall -unclear timing -risk reduction with BP control. -On SCD for DVT proph -A1c 5.7. Lipid Profile WNL -On aspirin and simvastatin for medical therapy Hyponatremia-resolved -Admit sodium 125. Na 137 on d/c -Hx of this since perhaps January 2019 -Appreciate Nephrology recs: -Likely secondary to SIADH -continue 1g PO BID NaCl administration- consider switching to 2g BID with Na <135 -continue Lasix 20mg PO BID for free water excretion -continue Effexor at decreased 225mg daily dose -continue Fluid restrict to 2000 mL/day. -consider chest CT to look for occult malignancy causing SIADH vs further adjustment of his Effexor +/- trazodone. Urinary incontinence: -UCx grew Alpha strep - Should be covered by antibiotics he has already received. -Condom catheter in place - bladder scanned for ~360ml 04/16 -Daughter says this is a relatively new finding. In talking with her, believe this is likely due to overflow incontinence w/ h/o BPH -can be further worked up with urology as outpt Hypertension: -Increased home amlodipine to 7.5mg qPM -Resumed home spironolactone 25 mg BID -On hydralazine prn. Longstanding sensory ataxia / diabetic peripheral neuropathy, recent fall and left rib fractures: -Holding opiates due to AMS. On scheduled Tylenol. Gabapentin decreased as above Splenomegaly: -Including a 6.8 cm heterogeneous focus on 19May u/s. May be post-traumatic from prior fall. Chronic thrombocytopenia: - Admit platelets 116. -Seen by hematology in 2017, noted thrombocytopenia likely related to Hepatitis C (s/p blood transfusion). -84 on day of d/c Hyperlipidemia, ? diastolic dysfunction: -Continue home Zocor. -20May TTE noted EF 55-60%, normal LVSF, no significant change since April 2019. -Is on Lasix 10 mg at home. Started on Lasix 20 mg BID for hyponatremia as above. Iron deficiency anemia: -Admit Hb 12.5 (MCV 83), stable. -No evidence of acute bleeding. -Suspect anemia of chronic inflammation as well. Diabetes type 2: -March 2020 HbA1c 6.1. -Held home glargine, aspart, and metformin. -Held home aspirin due to blood in CSF. -Placed on insulin sliding scale. Mixed restrictive and obstructive lung disease, chronic hypoxic resp. failure: -Is on 2-3 L NC oxygen at home (though not requiring it as inpatient). -Sees Dr. Tomas of pulmonology as outpatient. -Continue home albuterol prn. Mild tardive dyskinesia: -Thought to be related to home Abilify. -Follows with psychiatry as an outpatient. -Per neurology, his home gabapentin dosing was decreased from QID to TID and his home amantadine was discontinued. Alcoholic and compensated hepatitis C cirrhosis: -Alcohol cessation in 2007. -Previously followed by [facility]. -Normal LFTs. Opiate-associated constipation: -Tapentadol BID was stopped on last discharge and swapped with new oxycodone. -Held home bisacodyl and miralax. -Continue home docusate. - Held narcotics due to AMS. Obstructive sleep apnea: -Reportedly wears BiPAP intermittently. -Ordered for inpatient. Microscopic hematuria: -On prior discharge, plan was for outpatient cystoscopy with urology. No UA RBCs seen on this admit. BPH: -Continue home finasteride Depression, anxiety: -Continue home buspirone and trazodone. -Lowered Effexor due to hyponatremia. Consider lowering/stopping trazodone as well. [facility] At time of d/c, pt had no other acute concerns or complaints. Total Time Total Time Spent Total Time Spent (In Minutes): 30 Discharge Plan Discharge Items Patient Disposition: Transfer Nursing Home Fac Reason For Visit: AMS,HYPONATREMIA Discharge Diagnosis: Altered mental status Activity: Per Instructions section Non-emergency contact: Primary Care Provider Call non-emergency contact if: your symptoms worsen [facility] - Diet: Low Sodium (2gm) Addtl Attending Provider Instructions: 79-year-old male was admitted on 03 Apr 2020 via EMS (from [facility]) for AMS likely multifactorial in nature. The following was the medical management during stay here. Metabolic encephalopathy - resolved -Multifactorial in origin to include hyponatremia, polypharmacy (lowered dose gabapentin to 600 TID, abilify to 7.5), recent CVA, and concussive symptoms after fall, baseline dementia -22May CTA head and neck are non-acute - right frontal lobe infarct - unclear timing. -22May LP noted evidence of bleeding--from viral encephalitis vs bleeding from falls -[employer] CSF PCR testing was negative. -CSF culture with NGTD. -24May stopped empiric vancomycin + cefepime (received four days tx) and empiric acyclovir (received three days tx). -currently at baseline Right frontal lobe lacunar infarct - possibly before fall Small Intraventricular bleed - possibly from fall -unclear timing -risk reduction with BP control. -On SCD for DVT proph -A1c 5.7. Lipid Profile WNL -On aspirin and simvastatin for medical therapy Hyponatremia-resolved -Admit sodium 125. Na 137 on d/c -Hx of this since perhaps January 2019 -Appreciate Nephrology recs: -Likely secondary to SIADH -continue 1g PO BID NaCl administration- consider switching to 2g BID with Na <135 -continue Lasix 20mg PO BID for free water excretion -continue Effexor at decreased 225mg daily dose -continue Fluid restrict to 2000 mL/day. -consider chest CT to look for occult malignancy causing SIADH vs further adjustment of his Effexor +/- trazodone. Urinary incontinence: -UCx grew Alpha strep - Should be covered by antibiotics he has already received. -Condom catheter in place - bladder scanned for ~360ml 04/16 -Daughter says this is a relatively new finding. In talking with her, believe this is likely due to overflow incontinence w/ h/o BPH -can be further worked up with urology as outpt Hypertension: -Increased home amlodipine to 7.5mg qPM -Resumed home spironolactone 25 mg BID -On hydralazine prn. Longstanding sensory ataxia / diabetic peripheral neuropathy, recent fall and left rib fractures: -Holding opiates due to AMS. On scheduled Tylenol. Gabapentin decreased as ab ove Splenomegaly: -Including a 6.8 cm heterogeneous focus on 19May u/s. May be post-traumatic from prior fall. Chronic thrombocytopenia: - Admit platelets 116. -Seen by hematology in 2017, noted thrombocytopenia likely related to Hepatitis C (s/p blood transfusion). -84 on day of d/c Hyperlipidemia, ? diastolic dysfunction: -Continue home Zocor. -20May TTE noted EF 55-60%, normal LVSF, no significant change since April 2019. -Is on Lasix 10 mg at home. Started on Lasix 20 mg BID for hyponatremia as above. Iron deficiency anemia: -Admit Hb 12.5 (MCV 83), stable. -No evidence of acute bleeding. -Suspect anemia of chronic inflammation as well. Diabetes type 2: -March 2020 HbA1c 6.1. -Held home glargine, aspart, and metformin. -Held home aspirin due to blood in CSF. -Placed on insulin sliding scale. Mixed restrictive and obstructive lung disease, chronic hypoxic resp. failure: -Is on 2-3 L NC oxygen at home (though not requiring it as inpatient). -Sees Dr. Tomas of pulmonology as outpatient. -Continue home albuterol prn. Mild tardive dyskinesia: -Thought to be related to home Abilify. -Follows with psychiatry as an outpatient. -Per neurology, his home gabapentin dosing was decreased from QID to TID and his home amantadine was discontinued. Alcoholic and compensated hepatitis C cirrhosis: -Alcohol cessation in 2007. -[facility]. -Normal LFTs. Opiate-associated constipation: -Tapentadol BID was stopped on last discharge and swapped with new oxycodone. -Held home bisacodyl and miralax. -Continue home docusate. - Held narcotics due to AMS. Obstructive sleep apnea: -Reportedly wears BiPAP intermittently. -Ordered for inpatient. Microscopic hematuria: -On prior discharge, plan was for outpatient cystoscopy with urology. No UA RBCs seen on this admit. BPH: -Continue home finasteride Depression, anxiety: -Continue home buspirone and trazodone. -Lowered Effexor due to hyponatremia. Consider lowering/stopping trazodone as well. At time of d/c, pt had no other acute concerns or complaints. Pending Studies at Discharge: No Stand-Alone Forms: My [facility] Skilled Items Patient informed of condition?: Yes DNR: No Discharge Level of Care: Skilled Communicable Disease: No Discharge Prognosis: Stable Lines: None Urinary Catheter: Yes Medications and DC Order Prescriptions: Continued spironolactone [Aldactone] 25 mg tablet 25 mg PO BID RF: 0 simvastatin [Zocor] 40 mg tablet 40 mg PO QPM RF: 0 trazodone 150 mg tablet 150 mg PO HS RF: 0 buspirone 30 mg tablet 30 mg PO BID RF: 0 aspirin 81 mg tablet,chewable 81 mg PO QAM RF: 0 fluticasone propionate [Flonase Allergy Relief] 50 mcg/actuation spray,suspension 1 sprays INTNAS DAILY PRN (Reason: Nasal Congestion) RF: 0 B-complex with vitamin C capsule 1 cap PO QAM RF: 0 cholecalciferol (vitamin D3) 2,000 unit tablet 2,000 units PO QAM RF: 0 metformin 1,000 mg tablet 500 mg PO BID RF: 0 magnesium oxide 400 mg magnesium tablet 400 mg PO QAM RF: 0 calcium carbonate-vitamin D3 [Calcium 600 + D(3)] 600 mg(1,500mg) -400 unit Tablet 1 tab PO QAM RF: 0 acetaminophen 500 mg Tablet 1,000 mg PO BID Qty: 60 RF: 0 insulin aspart U-100 [Novolog U-100 Insulin aspart] 100 unit/mL Solution 1 sliding scale dose SUBCUT USEASDIRECTD Qty: 0 RF: 0 Basaglar KwikPen U-100 Insulin 100 unit/mL (3 mL) insulin pen 16 unit SUBCUT HS Qty: 0 RF: 0 finasteride 5 mg tablet 5 mg PO QAM RF: 0 silodosin 8 mg capsule 8 mg PO PM RF: 0 polyethylene glycol 3350 17 gram Powder In Packet 17 g PO DAILY RF: 0 bisacodyl 10 mg Suppository 10 mg VT DAILY PRN (Reason: Constipation) RF: 0 albuterol sulfate 90 mcg/actuation Hfa Aerosol Inhaler 2 puff INHALATION Q4H RF: 0 docusate sodium 100 mg Tablet 100 mg PO BID RF: 0 Changed venlafaxine [Effexor XR] 150 mg capsule,extended release 24hr 225 mg PO QAM Qty: 0 RF: 0 amlodipine 5 mg Tablet 7.5 mg PO PM Qty: 0 RF: 0 gabapentin 800 mg tablet 600 mg PO TID 90 Days Qty: 360 RF: 0 aripiprazole [Abilify] 10 mg tablet 7.5 mg PO HS Qty: 0 RF: 0 furosemide [Lasix] 20 mg tablet 20 mg PO BID Qty: 0 RF: 0 Discontinued amantadine HCl 100 mg tablet 100 mg PO BID 30 Days Qty: 60 RF: 2 oxycodone 5 mg Tablet 10 mg PO Q4H PRN (Reason: pain) Qty: 20 RF: 0 Nucynta ER 100 mg tablet extended release 12 hr 100 mg PO BID RF: 0 Discharge Orders: Discharge Order (Routine); Ordered 04/18/20 Ordered By: Cristóbal Gaspar Admission Data Admit Date/Time: 04/03/20 15:13 Attending Provider: Sidra Veras Admit Provider: [facility] Other Providers: Zan Rockwell ; Manasa Lemon ; Reji Krishnan ; Jeff Madrid ; [facility] ; [place], ; Fannie Bello ; Kalin Victor ; [place] ; [place] ; [facility]io Sifuent[facility] [place] ; Jackson Ortiz Other Interventions: Discharge Summary Assessment (RN) Last Done: 04/18/20 09:38 DC Date/Time DO NOT enter until pt leaves facility: 04/18/20 13:54 Supervising Physician Co-Signing Physician Notes Resident Physician Supervision Note: I independently interviewed and examined the patient and verified the massey history and physical, reviewed labs and image studies, discussed the case with the resident Dr. Daniel and agree with the findings and care plan. Resident Activity Tracking Resident Involvement: Resident Care Provided Care Provided: Adult [facility]
== END 2020-04-18 13:54 | DRG 85 ==
LOC: ED 09:57 → 2N 15:13 → SUATTDRO 15:13 → 2N 15:40

== ENCOUNTER 2020-05-18 16:38 | Inpatient (IN) ==
[2020-05-18] MEDS ORDERED: MoRPHine SULFATE 4 MG/ML 1 ML CARP\\VIAL IV PRN (17:14)
[2020-05-18] MEDS ORDERED: SODIUM CHLORIDE 0.9% 1000ML 1,000 ML IV SCH (17:30)
[2020-05-18 17:34] LABS: Hematocrit (blood only) 37.7 % (42-52); Hemoglobin 12.9 g/dL (14.0-18.0); Mean Corpuscular Hemoglobin 30.6 pg (25-34); Mean Corpuscular Hgb Conc 34.2 g/dL (32-36); Mean Corpuscular Volume 89.5 fL (80-100); RDW Coefficient of Variation 13.6 % (11.5-14.5); RDW Standard Deviation 44.1 fL (36.4-46.3); Red Blood Count 4.21 M/uL (4.7-6.1); White Blood Count 7.53 K/uL (4.8-10.8)
[2020-05-18 17:38] LABS: Mean Platelet Volume 11.2 fL (7.4-10.4); Platelet Count 96 K/uL (130-400)
[2020-05-18] MEDS: ACETAMINOPHEN 1,000 MG/100 ML VIAL IV STA ×2 (17:46→17:48)
[2020-05-18 17:47] LABS: Prothrombin Time 10.9 Seconds (9.0-12.0)
[2020-05-18 17:52] LABS: Basophils # (auto) 0.01 K/uL (0-0.2); Basophils % (auto) 0.1 %; Eosinophils # (auto) 0.01 K/uL (0-0.5); Eosinophils % (auto) 0.1 %; Immature Granulocytes # (auto) 0.01 K/uL (0.00-0.02); Immature Granulocytes % (auto) 0.1 %; Lymphocytes # (auto) 0.47 K/uL (1.2-3.4); Lymphocytes % (auto) 6.2 %; Monocytes # (auto) 0.47 K/uL (0.11-0.59); Monocytes % (auto) 6.2 %; Neutrophils # (auto) 6.56 K/uL (1.4-6.5); Neutrophils % (auto) 87.3 %
[2020-05-18 17:53] LABS: BUN Creatinine Ratio 15.7 (10-20); Calcium 9.5 mg/dl (8.5-10.1); Creatinine Clr Calc Pharmacy 63.3 ml/min; Est GFR (African American) 73.6; Est GFR (Non-African American) 63.5; Potassium 4.2 mmol/L (3.5-5.1)
[2020-05-18 18:38] LABS: Appearance Urine Clear (Clear); Bilirubin Urine Negative (Negative); Blood Urine Negative (Negative); Color Urine Dark Yellow; Glucose Urine UA Negative (Negative); Ketones Urine Negative (Negative); Leukocyte Esterase Urine Negative (Negative); Nitrite Urine Negative (Negative); Protein Urine Negative (Negative); Specific Gravity Urine 1.016 (1.000-1.030); Urobilinogen Urine Negative (Negative)
--- NOTE | 2020-05-18 18:43 | XRay Report ---
SINGLE VIEW CHEST CLINICAL HISTORY: Preoperative examination. Hip fracture. FINDINGS: An AP, portable, supine chest radiograph is compared to study dated 04/03/2020 and correlate d with chest CT dated 05/22/2018. The examination is degraded by portable technique and patient rotatio n. Cerclage wires project over the right chest wall and the sternum. The heart is enlarged noting ath erosclerotic calcification of the thoracic aorta. The pulmonary vasculature is noncongested. Chronic interstitial thickening is similar to previous. There is bibasilar scarring/atelectasis. No airspace consolidation or large pleural effusion is identified. No pneumothorax is seen. The skeletal structur es are osteopenic. There are numerous healed rib fractures. IMPRESSION: Cardiomegaly and chronic parenchymal changes as above. No acute cardiopulmonary abnormali ty is seen. ACT 112: Negative or not required by law. Electronically signed by: Darin Mcarthur M.D. 05/18/2020 6:42 PM
--- NOTE | 2020-05-18 18:52 | XRay Report ---
SINGLE VIEW PELVIS; 2 VIEWS LEFT HIP CLINICAL HISTORY: Fall. Left hip injury. FINDINGS: An AP view of the pelvis with AP and crosstable lateral views of the left hip are correlate d with pelvic CT dated 03/17/2020. The skeletal structures are osteopenic. There is an impacted and com minuted intertrochanteric fracture of the left femur. There is angulation of the fracture and distrac devan fragments. Overlying soft tissue edema is noted. No fracture is seen involving the bony pelvis or the right hip. Moderate degenerative joint space narrowing is seen in both hips. Mild degenerative s clerosis is noted in the sacral iliac joints. Lumbosacral spondylosis is partially visualized. No bow el obstruction is identified. IMPRESSION: Intertrochanteric left femoral fracture as above. Electronically signed by: Darin Mcarthur M.D. 05/18/2020 6:51 PM
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
[2020-05-18] MEDS: MoRPHine SULFATE 2 MG/ML CARP IV PRN ×2 (20:54→22:21)
[2020-05-18] MEDS ORDERED: CARBOHYDRATES FOR HYPOGLYCEMIA PO PRN (23:18)
[2020-05-18] MEDS ORDERED: bisacodyL 10 MG SUPP PR PRN (23:18)
[2020-05-18] MEDS ORDERED: ALUMINUM/MAGNESIUM SUSP 30 ML UDC PO PRN (23:18)
[2020-05-18] MEDS ORDERED: DEXTROSE 50% 50 ML SYRINGE IV PRN (23:18)
[2020-05-18] MEDS ORDERED: GLUCAGON FOR INJ 1 MG VIAL SQ PRN (23:18)
[2020-05-18] MEDS ORDERED: ALBUTEROL HFA 8 GM INHALER INH PRN (23:18)
[2020-05-18] MEDS ORDERED: GLUCOSE 40% GEL 15 GM TUBE PO PRN (23:18)
[2020-05-18] MEDS: SODIUM CHLORIDE 0.9% 1000ML 1,000 ML IV SCH (23:18)
[2020-05-18] MEDS ORDERED: ONDANSETRON INJ 2 MG/ML 2 ML VIAL IV PRN (23:18)
[2020-05-18] MEDS ORDERED: GLUCOSE 10 TABS/TUBE PO PRN (23:18)
[2020-05-19] MEDS: INSULIN ASPART 100 UNITS/ML 3 ML PEN SC SCH ×5 (00:22→21:22)
[2020-05-19] MEDS ORDERED: TRAMADOL HCL 50 MG TABLET PO SCH (06:00)
[2020-05-19] MEDS ORDERED: ACETAMINOPHEN 500 MG TAB PO SCH (06:00)
[2020-05-19] MEDS ORDERED: FAMOTIDINE 20 MG TAB PO SCH (06:00)
[2020-05-19] MEDS ORDERED: SODIUM CHLORIDE 0.9% 1000ML 1,000 ML IV SCH (06:00)
[2020-05-19] MEDS ORDERED: SCOPOLAMINE 1.5 MG TDSY TD SCH (06:00)
[2020-05-19] MEDS ORDERED: TRANEXAMIC ACID / 0.7% NACL 1,000 MG/100 ML BAG IV SCH (06:00)
[2020-05-19] MEDS ORDERED: ROPIVACAINE 0.5% HCL/PF 150 MG, BUPIVACAINE 0.5% MPF 30 ML, EPINEPHrine 0.15 MG, Ketoro... INFIL SCH (06:00)
[2020-05-19] MEDS ORDERED: CEFAZOLIN 3000MG 65 ML IV SCH (06:00)
[2020-05-19] MEDS ORDERED: METOCLOPRAMIDE HCL 10 MG TABLET PO SCH (06:00)
[2020-05-19 06:57] LABS: Albumin Level 2.9 gm/dl (3.4-5.0); BUN Creatinine Ratio 21.7 (10-20); Calcium 8.5 mg/dl (8.5-10.1); Creatinine Clr Calc Pharmacy 105.5 ml/min; Est GFR (African American) 106.6; Potassium 4.1 mmol/L (3.5-5.1)
[2020-05-19 06:58] LABS: Bilirubin,Total 0.5 mg/dl (0.2-1); Globulin 2.9 gm/dl (2.5-4.0); Total Protein 5.9 gm/dl (6.4-8.2)
[2020-05-19 07:26] LABS: Hematocrit (blood only) 36.4 % (42-52); Hemoglobin 11.8 g/dL (14.0-18.0); Mean Corpuscular Hemoglobin 29.5 pg (25-34); RDW Coefficient of Variation 13.6 % (11.5-14.5); RDW Standard Deviation 45.3 fL (36.4-46.3); White Blood Count 6.54 K/uL (4.8-10.8)
[2020-05-19 07:27] LABS: Mean Corpuscular Hgb Conc 32.4 g/dL (32-36); Platelet Count 85 K/uL (130-400)
[2020-05-19 07:47] LABS: Basophils # (auto) 0.01 K/uL (0-0.2); Basophils % (auto) 0.2 %; Eosinophils % (auto) 1.5 %; Immature Granulocytes # (auto) 0.01 K/uL (0.00-0.02); Immature Granulocytes % (auto) 0.2 %; Lymphocytes # (auto) 0.68 K/uL (1.2-3.4); Lymphocytes % (auto) 10.4 %; Monocytes # (auto) 0.51 K/uL (0.11-0.59); Monocytes % (auto) 7.8 %; Neutrophils # (auto) 5.23 K/uL (1.4-6.5); Neutrophils % (auto) 79.9 %
[2020-05-19] MEDS ORDERED: FLEXERIL HOME PACK 10 MG VIAL PO SCH (09:00)
[2020-05-19] MEDS ORDERED: BusPIRone 15 MG TAB PO SCH (09:00)
--- NOTE | 2020-05-19 09:42 | Orthopedic Progress Note ---
Date of Service May 19, 2020 Assessment & Plan (1) Closed intertrochanteric fracture of left hip: Informed consent for the procedure was obtained last night from the patient. I also spoke with his daughter Fabrice, who agrees to proceed after reviewing the risks and benefits of the surgery. Fabrice told me that he has had 5 falls at his intermediate facility including the one yesterday. She is concerned, understandably so, about him returning to this facility. We will have case management see him today as he is going to need a higher level of care than he had at his previous facility. For today, he has been n.p.o. since midnight and we will plan on proceeding with open reduction internal fixation of his intertrochanteric femur fracture. Plan on Lovenox for DVT prophylaxis after surgery. Patient and his daughter understand he is at elevated risk for complications secondary to his underlying medical problems. (2) Diabetes mellitus type 2 in nonobese: (3) Chronic respiratory failure with hypoxia: Admission and Anticipated Discharge Date Admission Date: May 18, 2020 Subjective Patient did well overnight. His pain is well controlled on oral medication. His rapid COVID test came back negative. Denies fevers chills chest pain or shortness of breath. Physical Exam Physical Exam: On exam today he is alert and oriented x3 as well as cooperative. Answers all questions appropriately. Upper extremity exam neurologically shows him to have 5 out of 5 strength in site superintendent interossei wrist flexors extensors biceps triceps and deltoids. Sensory intact to light touch C5-T1 dermatomes. Lower extremity exam shows the patient have sensation intact light touch L3-S1 dermatomes. Motor exam is deferred due to the fracture in the left hip. Left lower extremity musculoskeletal exam shows patient's leg to remain shortened and externally rotated. He fires EHL FHL tib ant gastrocsoleus. Sensory intact to light touch on the dorsal and plantar aspects of the foot. Toes are warm and well-perfused. Results & Data ([facility]) Vital Signs (Past 12 Hours) Vital Signs Temp Pulse Pulse Resp BP BP Pulse Ox 05/19/20 08:20 36.8 C 87 15 134/65 96 05/18/20 23:45 05/18/20 23:17 36.7 C 83 16 121/65 96 05/18/20 22:00 91 H 21 149/65 H 95 Pulse Ox 05/19/20 08:20 05/18/20 23:45 96 05/18/20 23:17 05/18/20 22:00 (1) Closed intertrochanteric fracture of left hip Encounter type: initial encounter Fracture alignment: displaced Qualified Code(s): S72.142A - Displaced intertrochanteric fracture of left femur, initial encounter for closed fracture
[2020-05-19] MEDS: MoRPHine SULFATE 2 MG/ML CARP IV PRN (09:50)
[2020-05-19] MEDS: SODIUM CHLORIDE 0.9% 1000ML 1,000 ML IV SCH ×3 (10:38→23:10)
--- NOTE | 2020-05-19 11:47 | Hospitalist Progress Note ---
Date of Service May 19, 2020 Assessment & Plan (1) Closed intertrochanteric fracture of left hip: 79-year-old male with extensive medical past medical history noted transferred via EMS from [facility] for reported fall out of wheelchair seen to have closed left hip fracture on imaging. * Hip/Pelvis XR- Intertrochanteric left femoral fracture * Pain management with ANTHONY Tylenol, lidocaine patch, prn IV morphine * Ortho consulted * NPO for OR this morning with Dr Cherry * PT/OT post-operatively * CM to assist with placement as family would like to look into different facilities given multiple recent falls * IVF -- NSS @ 100cc/hr --> increased to 125cc/hr for now given mild dehydration on exam * Pre-op h/h 11.8/36.4 (hx anemia and was 12.9 and given IVF on admission) * CBC, CMP in AM (2) Hypertension: * Chronic. * Continue home home amlodipine to 7.5mg HS, spironolactone 25 mg BID , hydralazine prn, Lasix 20 mg BID * BP stable at 134/65 (3) Hyperlipidemia: * Chronic. Continue home simvastatin 40mg PO HS (4) CHF (congestive heart failure): * ECHO March 2020 -- EF 55-60%, normal LVSF, no significant change since April 2019 * Continue home spironolactone, lasix as above * No s/sx overload (5) Type 2 diabetes mellitus: * Chronic. Last A1c 5.7 04/2020 * On glargine, aspate, metformin BID outpatient -- held while inpatient * ISS while inpatient * BSG ac/hs -- blood sugars have been 140-170s since admission * Continue to monitor (6) Chronic respiratory failure with hypoxia: * with mixed restrictive/obstructive lung disease -- to be on 3.5L O2 via [facility] outpatient -- per patient he only utilizes this sometimes. Has seen Dr. 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 Continue home Gabapentin 800mg TID (9) Tardive dyskinesia: * Thought to be related to home antipsychotic, on aripiprazole * Follows psych outpatient * Per neurology, his home gabapentin dosing was decreased from QID to TID as above and his home amantadine was discontinued (10) Microscopic hematuria: * On prior discharge, plan was for outpatient cystoscopy with urology. No UA RBCs seen on this admit (11) Anxiety with depression: * Chronic * Continue home buspirone and trazodone and Effexor (12) Chronic respiratory failure with hypoxia, on home oxygen therapy: * See above (13) TERI (obstructive sleep apnea): * Has BiPAP but doesn't wear -- utilizes O2 via [place] -- continue while inpatient (14) Thrombocytopenia: * Admit platelets 96 -- low at 85 on repeat * Seen by hematology in 2018, noted thrombocytopenia likely related to Hepatitis C (s/p blood transfusion) * Continue to monitor (15) Chronic viral hepatitis: * Secondary to blood transfusion. (16) Elevated alkaline phosphatase level: * 119 on morning labs -- elevated at 181 on discharge March 2020 * CMP in AM (17) DVT prophylaxis: * SCDs * Chemoprophylaxis held for OR later this morning -- should initiate following procedure Daughter is Niyah ([phone]), lives in [place] Admission and Anticipated Discharge Date Admission Date: May 18, 2020 Supervising Physician Co-Signing Physician Notes HANNAH Supervision Note: I did not personally see or examine the patient today, but I verified all massey points of HANNAH Morse's assessment and plan with the following exceptions/additions: None Subjective Patient evaluated this morning. States he was using his electric wheelchair at [facility] and a wheel came off and he fell directly onto his hip. When asked if he hit his head, he states "not this time" and confirms that he has had mult iple falls at current facility. Patient states he alternated between electric wheelchair and walker prior to admission. He states pain is directly to his left hip and made worse with any movement. Currently, patient lying straight in bed and attempted to move as little as possible of his lower extremities. Pain is controlled with pain medications and attempting to keep still. Denies any worsening numbness/tingling to his legs. Denies fevers, chills, chest pain, shortness of breath, abdominal pain, n/v/d/c or dysuria at this current time. Nursing arrived to room at end of our encounter to get ready to take patient down to the OR at this time. Review of Systems Review of Systems: All systems reviewed & are unremarkable except as noted in HPI & below Physical Exam Constitutional: + physical limitations and cooperative; no acute distress and + uncomfortable Eyes: PERRL, conjunctivae normal, anicteric sclerae ENMT: Ears: no hearing impairment Nose: no external nose abnormality dry mm Neck: normal visual inspection Respiratory: normal respiratory effort, lungs clear to auscultation Cardiovascular: RRR, no murmur, no edema Gastrointestinal (Abdomen): normal bowel sounds, soft, nontender, no hepatosplenomegaly Musculoskeletal: UE 5/5 bilaterally strength testing LLE deferred secondary to acute fracture --> shortened and externally rotated NVI to light touch -- patient flinched with touch to left dorsal foot and increased pain in region L hip palpable pt/dp bilaterally calves non-tender increasingly tender to palpation LEFT hip Skin: warm, dry Neurologic: patellar DTR's 2+ bilat, sensation intact Psychiatric: Orientation: alert, oriented to person, oriented to place and cooperative Genitourinary: fields catheter with darker yellow urine draining Lymphatic: no cervical or axillary lymphadenopathy Results & Data Results & Data ([facility]) Vital Signs (Past 12 Hours) Vital Signs Temp Pulse Resp BP Pulse Ox 05/19/20 08:20 36.8 C 87 15 134/65 96 Laboratory Results 05/19/20 05/19/20 05/19/20 Range/Units 09:00 07:12 06:03 WBC 6.54 (4.8-10.8) K/uL RBC 4.00 L (4.7-6.1) M/uL Hgb 11.8 L (14.0-18.0) g/dL Hct 36.4 L (42-52) % MCV 91.0 (80-100) fL MCH 29.5 (25-34) pg MCHC 32.4 (32-36) g/dL RDW Std Deviation 45.3 (36.4-46.3) fL RDW Coeff of Ja 13.6 (11.5-14.5) % Plt Count 85 L (130-400) K/uL MPV 11.0 H (7.4-10.4) fL Immature Gran % (Auto) 0.2 % Neut % (Auto) 79.9 % Lymph % (Auto) 10.4 % [place] % (Auto) 7.8 % Eos % (Auto) 1.5 % Baso % (Auto) 0.2 % Neut # (Auto) 5.23 (1.4-6.5) K/uL Lymph # (Auto) 0.68 L (1.2-3.4) K/uL [place] # (Auto) 0.51 (0.11-0.59) K/uL Eos # (Auto) 0.10 (0-0.5) K/uL Baso # (Auto) 0.01 (0-0.2) K/uL Immature Gran # (Auto) 0.01 (0.00-0.02) K/uL Absolute Nucleated RBC Nucleated RBC % (auto) Neutrophils % (Manual) Band Neutrophils % Lymphocytes % (Manual) Prolymphocyte % Reactive Lymphs % (Man) Monocytes % (Manual) Eosinophils % (Manual) Basophils % (Manual) Metamyelocytes % (Man) Myelocytes % (Man) Promyelocytes % (Man) Blast Cells % (Manual) Plasma Cell % (Manual) Other Cells % Nucleated RBC % Neutrophils # (Manual) Band Neutrophils # Total Absolute Neuts Lymphocytes # (Manual) Prolymphocyte # Reactive Lymphs # Total Abs Lymphocytes Monocytes # (Manual) Eosinophils # (Manual) Basophils # (Manual) Metamyelocytes # (Man) Myelocytes # (Manual) Promyelocytes # (Man) Blast Cells # (Man) Plasma Cell # (Manual) Other Cells # Nucleated RBCs # (Man) Hypersegmented Neuts Hyposegmented Neuts Hypogranular Neuts Large Granular Lymphs # Lrg Granular Lymphs Hairy Cells Smudge Cells Toxic Granulation Toxic Vacuolation Dohle Bodies Gee Rods Platelet Estimate Hypogranular Platelets Clumped Platelets Giant Platelets Platelet Satelliting RBC Morphology Polychromasia Hypochromasia Poikilocytosis Basophilic Stippling Anisocytosis Microcytosis Macrocytosis Spherocytes Pappenheimer Bodies Sickle Cells Target Cells Tear Drop Cells Ovalocytes Stomatocytes [place] Bodies Echinocytes Acanthocytes (Spur) Rouleaux RBC Agglutinates Schistocytes RBC Morph Comment Sezary Cell PT (9.0-12.0) Seconds INR (0.9-1.1) Sodium (136-145) mmol/L Potassium (3.5-5.1) mmol/L Chloride (98-107) mmol/L Carbon Dioxide (21-32) mmol/L Anion Gap (3-11) BUN (7-18) mg/dl Creatinine (0.6-1.4) mg/dl Est Cr Clr Drug Dosing ml/min Est GFR ( Amer) Est GFR (Non-Af Amer) BUN/Creatinine Ratio (10-20) Glucose (70-99) mg/dl POC Glucose (70-99) mg/dl Calcium (8.5-10.1) mg/dl Total Bilirubin (0.2-1) mg/dl AST (15-37) U/L ALT (12-78) U/L Alkaline Phosphatase (45-117) U/L Troponin I < 0.015 (0-0.045) ng/ml Total Protein (6.4-8.2) gm/dl Albumin (3.4-5.0) gm/dl Globulin (2.5-4.0) gm/dl Albumin/Globulin Ratio (0.9-2) Urine Color Urine Appearance (Clear) Urine pH (4.5-7.5) Ur Specific [place] (1.000-1.030) Urine Protein (Negative) Urine Glucose (UA) (Negative) Urine Ketones (Negative) Urine Blood (Negative) Urine Nitrite (Negative) Urine Bilirubin (Negative) Urine Urobilinogen (Negative) Ur Leukocyte Esterase (Negative) Nasal Screen MRSA (PCR) (Negative) COVID-19 PCR NEGATIVE (Negative) Blood Type Antibody Screen 05/19/20 05/19/20 05/19/20 Range/Units 06:03 06:03 06:00 WBC Cancelled (4.8-10.8) K/uL RBC Cancelled (4.7-6.1) M/uL Hgb Cancelled (14.0-18.0) g/dL Hct Cancelled (42-52) % MCV Cancelled (80-100) fL MCH Cancelled (25-34) pg MCHC Cancelled (32-36) g/dL RDW Std Deviation Cancelled (36.4-46.3) fL RDW Coeff of Ja Cancelled (11.5-14.5) % Plt Count Cancelled (130-400) K/uL MPV Cancelled (7.4-10.4) fL Immature Gran % (Auto) Cancelled % Neut % (Auto) Cancelled % Lymph % (Auto) Cancelled % [place] % (Auto) Cancelled % Eos % (Auto) Cancelled % Baso % (Auto) Cancelled % Neut # (Auto) Cancelled (1.4-6.5) K/uL Lymph # (Auto) Cancelled (1.2-3.4) K/uL [place] # (Auto) Cancelled (0.11-0.59) K/uL Eos # (Auto) Cancelled (0-0.5) K/uL Baso # (Auto) Cancelled (0-0.2) K/uL Immature Gran # (Auto) Cancelled (0.00-0.02) K/uL Absolute Nucleated RBC Cancelled Nucleated RBC % (auto) Cancelled Neutrophils % (Manual) Cancelled Band Neutrophils % Cancelled Lymphocytes % (Manual) Cancelled Prolymphocyte % Cancelled Reactive Lymphs % (Man) Cancelled Monocytes % (Manual) Cancelled Eosinophils % (Manual) Cancelled Basophils % (Manual) Cancelled Metamyelocytes % (Man) Cancelled Myelocytes % (Man) Cancelled Promyelocytes % (Man) Cancelled Blast Cells % (Manual) Cancelled Plasma Cell % (Manual) Cancelled Other Cells % Cancelled Nucleated RBC % Cancelled Neutrophils # (Manual) Cancelled Band Neutrophils # Cancelled Total Absolute Neuts Cancelled Lymphocytes # (Manual) Cancelled Prolymphocyte # Cancelled Reactive Lymphs # Cancelled Total Abs Lymphocytes Cancelled Monocytes # (Manual) Cancelled Eosinophils # (Manual) Cancelled Basophils # (Manual) Cancelled Metamyelocytes # (Man) Cancelled Myelocytes # (Manual) Cancelled Promyelocytes # (Man) Cancelled Blast Cells # (Man) Cancelled Plasma Cell # (Manual) Cancelled Other Cells # Cancelled Nucleated RBCs # (Man) Cancelled Hypersegmented Neuts Cancelled Hyposegmented Neuts Cancelled Hypogranular Neuts Cancelled Large Granular Lymphs Cancelled # Lrg Granular Lymphs Cancelled Hairy Cells Cancelled Smudge Cells Cancelled Toxic Granulation Cancelled Toxic Vacuolation Cancelled Dohle Bodies Cancelled Gee Rods Cancelled Platelet Estimate Cancelled Hypogranular Platelets Cancelled Clumped Platelets Cancelled Giant Platelets Cancelled Platelet Satelliting Cancelled RBC Morphology Cancelled Polychromasia Cancelled Hypochromasia Cancelled Poikilocytosis Cancelled Basophilic Stippling Cancelled Anisocytosis Cancelled Microcytosis Cancelled Macrocytosis Cancelled Spherocytes Cancelled Pappenheimer Bodies Cancelled Sickle Cells Cancelled Target Cells Cancelled Tear Drop Cells Cancelled Ovalocytes Cancelled Stomatocytes Cancelled [place] Bodies Cancelled Echinocytes Cancelled Acanthocytes (Spur) Cancelled Rouleaux Cancelled RBC Agglutinates Cancelled Schistocytes Cancelled RBC Morph Comment Cancelled Sezary Cell Cancelled PT (9.0-12.0) Seconds INR (0.9-1.1) Sodium 134 L (136-145) mmol/L Potassium 4.1 (3.5-5.1) mmol/L Chloride 102 (98-107) mmol/L Carbon Dioxide 26 (21-32) mmol/L Anion Gap 6.0 (3-11) BUN 14 (7-18) mg/dl Creatinine 0.66 D (0.6-1.4) mg/dl Est Cr Clr Drug Dosing 105.5 ml/min Est GFR ( Amer) 106.6 Est GFR (Non-Af Amer) 92.0 BUN/Creatinine Ratio 21.7 H (10-20) Glucose 124 H (70-99) mg/dl POC Glucose 141 H (70-99) mg/dl Calcium 8.5 (8.5-10.1) mg/dl Total Bilirubin 0.5 (0.2-1) mg/dl AST 20 (15-37) U/L ALT 22 (12-78) U/L Alkaline Phosphatase 119 H (45-117) U/L Troponin I (0-0.045) ng/ml Total Protein 5.9 L (6.4-8.2) gm/dl Albumin 2.9 L (3.4-5.0) gm/dl Globulin 2.9 (2.5-4.0) gm/dl Albumin/Globulin Ratio 1.0 (0.9-2) Urine Color Urine Appearance (Clear) Urine pH (4.5-7.5) Ur Specific [place] (1.000-1.030) Urine Protein (Negative) Urine Glucose (UA) (Negative) Urine Ketones (Negative) Urine Blood (Negative) Urine Nitrite (Negative) Urine Bilirubin (Negative) Urine Urobilinogen (Negative) Ur Leukocyte Esterase (Negative) Nasal Screen MRSA (PCR) (Negative) COVID-19 PCR (Negative) Blood Type Antibody Screen 05/19/20 05/19/20 05/18/20 Range/Units 02:02 00:20 17:55 WBC (4.8-10.8) K/uL RBC (4.7-6.1) M/uL Hgb (14.0-18.0) g/dL Hct (42-52) % MCV (80-100) fL MCH (25-34) pg MCHC (32-36) g/dL RDW Std Deviation (36.4-46.3) fL RDW Coeff of Ja (11.5-14.5) % Plt Count (130-400) K/uL MPV (7.4-10.4) fL Immature Gran % (Auto) % Neut % (Auto) % Lymph % (Auto) % [place] % (Auto) % Eos % (Auto) % Baso % (Auto) % Neut # (Auto) (1.4-6.5) K/uL Lymph # (Auto) (1.2-3.4) K/uL [place] # (Auto) (0.11-0.59) K/uL Eos # (Auto) (0-0.5) K/uL Baso # (Auto) (0-0.2) K/uL Immature Gran # (Auto) (0.00-0.02) K/uL Absolute Nucleated RBC Nucleated RBC % (auto) Neutrophils % (Manual) Band Neutrophils % Lymphocytes % (Manual) Prolymphocyte % Reactive Lymphs % (Man) Monocytes % (Manual) Eosinophils % (Manual) Basophils % (Manual) Metamyelocytes % (Man) Myelocytes % (Man) Promyelocytes % (Man) Blast Cells % (Manual) Plasma Cell % (Manual) Other Cells % Nucleated RBC % Neutrophils # (Manual) Band Neutrophils # Total Absolute Neuts Lymphocytes # (Manual) Prolymphocyte # Reactive Lymphs # Total Abs Lymphocytes Monocytes # (Manual) Eosinophils # (Manual) Basophils # (Manual) Metamyelocytes # (Man) Myelocytes # (Manual) Promyelocytes # (Man) Blast Cells # (Man) Plasma Cell # (Manual) Other Cells # Nucleated RBCs # (Man) Hypersegmented Neuts Hyposegmented Neuts Hypogranular Neuts Large Granular Lymphs # Lrg Granular Lymphs Hairy Cells Smudge Cells Toxic Granulation Toxic Vacuolation Dohle Bodies Gee Rods Platelet Estimate Hypogranular Platelets Clumped Platelets Giant Platelets Platelet Satelliting RBC Morphology Polychromasia Hypochromasia Poikilocytosis Basophilic Stippling Anisocytosis Microcytosis Macrocytosis Spherocytes Pappenheimer Bodies Sickle Cells Target Cells Tear Drop Cells Ovalocytes Stomatocytes [place] Bodies Echinocytes Acanthocytes (Spur) Rouleaux RBC Agglutinates Schistocytes RBC Morph Comment Sezary Cell PT (9.0-12.0) Seconds INR (0.9-1.1) Sodium (136-145) mmol/L Potassium (3.5-5.1) mmol/L Chloride (98-107) mmol/L Carbon Dioxide (21-32) mmol/L Anion Gap (3-11) BUN (7-18) mg/dl Creatinine (0.6-1.4) mg/dl Est Cr Clr Drug Dosing ml/min Est GFR ( Amer) Est GFR (Non-Af Amer) BUN/Creatinine Ratio (10-20) Glucose (70-99) mg/dl POC Glucose 175 H (70-99) mg/dl Calcium (8.5-10.1) mg/dl Total Bilirubin (0.2-1) mg/dl AST (15-37) U/L ALT (12-78) U/L Alkaline Phosphatase (45-117) U/L Troponin I (0-0.045) ng/ml Total Protein (6.4-8.2) gm/dl Albumin (3.4-5.0) gm/dl Globulin (2.5-4.0) gm/dl Albumin/Globulin Ratio (0.9-2) Urine Color Dark Yellow Urine Appearance Clear (Clear) Urine pH 7.0 (4.5-7.5) Ur Specific [place] 1.016 (1.000-1.030) Urine Protein Negative (Negative) Urine Glucose (UA) Negative (Negative) Urine Ketones Negative (Negative) Urine Blood Negative (Negative) Urine Nitrite Negative (Negative) Urine Bilirubin Negative (Negative) Urine Urobilinogen Negative (Negative) Ur Leukocyte Esterase Negative (Negative) Nasal Screen MRSA (PCR) Negative (Negative) COVID-19 PCR (Negative) Blood Type Antibody Screen 05/18/20 05/18/20 05/18/20 Range/Units 17:23 17:23 17:23 WBC 7.53 (4.8-10.8) K/uL RBC 4.21 L (4.7-6.1) M/uL Hgb 12.9 L (14.0-18.0) g/dL Hct 37.7 L (42-52) % MCV 89.5 (80-100) fL MCH 30.6 (25-34) pg MCHC 34.2 (32-36) g/dL RDW Std Deviation 44.1 (36.4-46.3) fL RDW Coeff of Ja 13.6 (11.5-14.5) % Plt Count 96 L (130-400) K/uL MPV 11.2 H (7.4-10.4) fL Immature Gran % (Auto) 0.1 % Neut % (Auto) 87.3 % Lymph % (Auto) 6.2 % [place] % (Auto) 6.2 % Eos % (Auto) 0.1 % Baso % (Auto) 0.1 % Neut # (Auto) 6.56 H (1.4-6.5) K/uL Lymph # (Auto) 0.47 L (1.2-3.4) K/uL [place] # (Auto) 0.47 (0.11-0.59) K/uL Eos # (Auto) 0.01 (0-0.5) K/uL Baso # (Auto) 0.01 (0-0.2) K/uL Immature Gran # (Auto) 0.01 (0.00-0.02) K/uL Absolute Nucleated RBC Nucleated RBC % (auto) Neutrophils % (Manual) Band Neutrophils % Lymphocytes % (Manual) Prolymphocyte % Reactive Lymphs % (Man) Monocytes % (Manual) Eosinophils % (Manual) Basophils % (Manual) Metamyelocytes % (Man) Myelocytes % (Man) Promyelocytes % (Man) Blast Cells % (Manual) Plasma Cell % (Manual) Other Cells % Nucleated RBC % Neutrophils # (Manual) Band Neutrophils # Total Absolute Neuts Lymphocytes # (Manual) Prolymphocyte # Reactive Lymphs # Total Abs Lymphocytes Monocytes # (Manual) Eosinophils # (Manual) Basophils # (Manual) Metamyelocytes # (Man) Myelocytes # (Manual) Promyelocytes # (Man) Blast Cells # (Man) Plasma Cell # (Manual) Other Cells # Nucleated RBCs # (Man) Hypersegmented Neuts Hyposegmented Neuts Hypogranular Neuts Large Granular Lymphs # Lrg Granular Lymphs Hairy Cells Smudge Cells Toxic Granulation Toxic Vacuolation Dohle Bodies Gee Rods Platelet Estimate Hypogranular Platelets Clumped Platelets Giant Platelets Platelet Satelliting RBC Morphology Polychromasia Hypochromasia Poikilocytosis Basophilic Stippling Anisocytosis Microcytosis Macrocytosis Spherocytes Pappenheimer Bodies Sickle Cells Target Cells Tear Drop Cells Ovalocytes Stomatocytes [place] Bodies Echinocytes Acanthocytes (Spur) Rouleaux RBC Agglutinates Schistocytes RBC Morph Comment Sezary Cell PT 10.9 (9.0-12.0) Seconds INR 1.0 (0.9-1.1) Sodium 135 L (136-145) mmol/L Potassium 4.2 (3.5-5.1) mmol/L Chloride 98 (98-107) mmol/L Carbon Dioxide 30 (21-32) mmol/L Anion Gap 7.0 (3-11) BUN 17 (7-18) mg/dl Creatinine 1.10 (0.6-1.4) mg/dl Est Cr Clr Drug Dosing 63.3 ml/min Est GFR ( Amer) 73.6 Est GFR (Non-Af Amer) 63.5 BUN/Creatinine Ratio 15.7 (10-20) Glucose 155 H (70-99) mg/dl POC Glucose (70-99) mg/dl Calcium 9.5 (8.5-10.1) mg/dl Total Bilirubin (0.2-1) mg/dl AST (15-37) U/L ALT (12-78) U/L Alkaline Phosphatase (45-117) U/L Troponin I (0-0.045) ng/ml Total Protein (6.4-8.2) gm/dl Albumin (3.4-5.0) gm/dl Globulin (2.5-4.0) gm/dl Albumin/Globulin Ratio (0.9-2) Urine Color Urine Appearance (Clear) Urine pH (4.5-7.5) Ur Specific [place] (1.000-1.030) Urine Protein (Negative) Urine Glucose (UA) (Negative) Urine Ketones (Negative) Urine Blood (Negative) Urine Nitrite (Negative) Urine Bilirubin (Negative) Urine Urobilinogen (Negative) Ur Leukocyte Esterase (Negative) Nasal Screen MRSA (PCR) (Negative) COVID-19 PCR (Negative) Blood Type Antibody Screen 05/18/20 Range/Units 17:23 WBC (4.8-10.8) K/uL RBC (4.7-6.1) M/uL Hgb (14.0-18.0) g/dL Hct (42-52) % MCV (80-100) fL MCH (25-34) pg MCHC (32-36) g/dL RDW Std Deviation (36.4-46.3) fL RDW Coeff of Ja (11.5-14.5) % Plt Count (130-400) K/uL MPV (7.4-10.4) fL Immature Gran % (Auto) % Neut % (Auto) % Lymph % (Auto) % [place] % (Auto) % Eos % (Auto) % Baso % (Auto) % Neut # (Auto) (1.4-6.5) K/uL Lymph # (Auto) (1.2-3.4) K/uL [place] # (Auto) (0.11-0.59) K/uL Eos # (Auto) (0-0.5) K/uL Baso # (Auto) (0-0.2) K/uL Immature Gran # (Auto) (0.00-0.02) K/uL Absolute Nucleated RBC Nucleated RBC % (auto) Neutrophils % (Manual) Band Neutrophils % Lymphocytes % (Manual) Prolymphocyte % Reactive Lymphs % (Man) Monocytes % (Manual) Eosinophils % (Manual) Basophils % (Manual) Metamyelocytes % (Man) Myelocytes % (Man) Promyelocytes % (Man) Blast Cells % (Manual) Plasma Cell % (Manual) Other Cells % Nucleated RBC % Neutrophils # (Manual) Band Neutrophils # Total Absolute Neuts Lymphocytes # (Manual) Prolymphocyte # Reactive Lymphs # Total Abs Lymphocytes Monocytes # (Manual) Eosinophils # (Manual) Basophils # (Manual) Metamyelocytes # (Man) Myelocytes # (Manual) Promyelocytes # (Man) Blast Cells # (Man) Plasma Cell # (Manual) Other Cells # Nucleated RBCs # (Man) Hypersegmented Neuts Hyposegmented Neuts Hypogranular Neuts Large Granular Lymphs # Lrg Granular Lymphs Hairy Cells Smudge Cells Toxic Granulation Toxic Vacuolation Dohle Bodies Gee Rods Platelet Estimate Hypogranular Platelets Clumped Platelets Giant Platelets Platelet Satelliting RBC Morphology Polychromasia Hypochromasia Poikilocytosis Basophilic Stippling Anisocytosis Microcytosis Macrocytosis Spherocytes Pappenheimer Bodies Sickle Cells Target Cells Tear Drop Cells Ovalocytes Stomatocytes [place] Bodies Echinocytes Acanthocytes (Spur) Rouleaux RBC Agglutinates Schistocytes RBC Morph Comment Sezary Cell PT (9.0-12.0) Seconds INR (0.9-1.1) Sodium (136-145) mmol/L Potassium (3.5-5.1) mmol/L Chloride (98-107) mmol/L Carbon Dioxide (21-32) mmol/L Anion Gap (3-11) BUN (7-18) mg/dl Creatinine (0.6-1.4) mg/dl Est Cr Clr Drug Dosing ml/min Est GFR ( Amer) Est GFR (Non-Af Amer) BUN/Creatinine Ratio (10-20) Glucose (70-99) mg/dl POC Glucose (70-99) mg/dl Calcium (8.5-10.1) mg/dl Total Bilirubin (0.2-1) mg/dl AST (15-37) U/L ALT (12-78) U/L Alkaline Phosphatase (45-117) U/L Troponin I (0-0.045) ng/ml Total Protein (6.4-8.2) gm/dl Albumin (3.4-5.0) gm/dl Globulin (2.5-4.0) gm/dl Albumin/Globulin Ratio (0.9-2) Urine Color Urine Appearance (Clear) Urine pH (4.5-7.5) Ur Specific [place] (1.000-1.030) Urine Protein (Negative) Urine Glucose (UA) (Negative) Urine Ketones (Negative) Urine Blood (Negative) Urine Nitrite (Negative) Urine Bilirubin (Negative) Urine Urobilinogen (Negative) Ur Leukocyte Esterase (Negative) Nasal Screen MRSA (PCR) (Negative) COVID-19 PCR (Negative) Blood Type O Positive Antibody Screen NEGATIVE Diagnostic Findings CXR IMPRESSION: Cardiomegaly and chronic parenchymal changes as above. No acute cardiopulmonary abnormality is seen. Hip/Pelvis There is an impacted and comminuted intertrochanteric fracture of the left femur. IMPRESSION: Intertrochanteric left femoral fracture as above ECG Rate (beats per minute): 86 Rhythm: other (sinus with 1st degree AV block) Findings: + other (septal infarct, age undetermined) Comparison ECG Date: from (04/03/20) Additional Comments: Septal infarct now present PG Care Time/CCT Total # of Minutes Spent Total Time Spent with Patient: Total time spent is greater than 50% in coordination of care (as documented) at patient's floor/unit and/or counseling patient: Coding Level of Care Code 06356 Subseq Hosp Care Lvl 3 Diagnoses Closed intertrochanteric fracture of left hip S72.142A Encounter type: initial encounter Fracture alignment: displaced Hypertension I10 Hyperlipidemia E78.5 CHF (congestive heart failure) I50.9 Heart failure chronicity: unspecified Heart failure type: unspecified Type 2 diabetes mellitus E11.9 Chronic respiratory failure with hypoxia J96.11 Mixed restrictive and obstructive lung disease J43.9; J98.4 Peripheral neuropathy G62.9 Tardive dyskinesia G24.01 Microscopic hematuria R31.29 Anxiety with depression F41.8 Chronic respiratory failure with hypoxia, on home oxygen therapy J96.11; Z99.81 TERI (obstructive sleep apnea) G47.33 Thrombocytopenia D69.6 Chronic viral hepatitis B18.9 Elevated alkaline phosphatase level R74.8 DVT prophylaxis Z29.9 (1) CHF (congestive heart failure) Heart failure chronicity: unspecified Heart failure type: unspecified Qualified Code(s): I50.9 - Heart failure, unspecified (2) Closed intertrochanteric fracture of left hip Encounter type: initial encounter Fracture alignment: displaced Qualified Code(s): S72.142A - Displaced intertrochanteric fracture of left femur, initial encounter for closed fracture
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
[2020-05-19] MEDS ORDERED: ORTHO JOINT ANESTHETIC ONE (12:10)
[2020-05-19] MEDS ORDERED: fentaNYL citrate 100 MCG/2 ML VIAL ONE ×2 (12:23→13:18)
[2020-05-19] MEDS ORDERED: BUPIVACAINE 0.5 % 5 MG/1 ML MPF 30ML VIAL ONE (12:42)
[2020-05-19] MEDS ORDERED: EPINEPHrine INJ 1 MG/ML AMP ONE (12:42)
[2020-05-19] MEDS ORDERED: fentaNYL citrate 100 MCG/2 ML VIAL IV PRN (12:56)
[2020-05-19] MEDS ORDERED: ePHEDrine sulfate 50 MG/ML AMP IV PRN (12:56)
[2020-05-19] MEDS ORDERED: ATROPINE SULFATE 0.1 MG/ML 10ML SYR IV PRN (12:56)
[2020-05-19] MEDS ORDERED: ONDANSETRON INJ 2 MG/ML 2 ML VIAL IV PRN ×2 (12:56→14:53)
[2020-05-19] MEDS ORDERED: LIDOCAINE HCL 2% 2 ML VIAL/AMP(20MG/ML) INFIL ONE (13:23)
[2020-05-19] MEDS ORDERED: PROPOFOL IV EMULSION 10 MG/ML 20 ML VIAL IV ONE (13:23)
[2020-05-19] MEDS ORDERED: ROCURONIUM BROMIDE 10 MG/ML 5 ML VIAL IV ONE (14:04)
[2020-05-19] MEDS ORDERED: GLYCOPYRROLATE 0.2 MG/ML VIAL ONE (14:06)
[2020-05-19] MEDS ORDERED: NEOSTIGMINE METHYLSULFATE 5 MG/5 ML SYR ONE (14:06)
[2020-05-19] MEDS: BusPIRone 15 MG TAB PO SCH ×2 (14:20→17:00)
[2020-05-19] MEDS: ASPIRIN 81 MG ECTAB PO SCH (14:21)
[2020-05-19] MEDS: SPIRONOLACTONE 25 MG TAB PO SCH ×2 (14:21→20:48)
[2020-05-19] MEDS: INSULIN GLARGINE SOLOSTAR 100 UNITS/ML 3 ML PEN SC SCH ×2 (14:21→21:23)
[2020-05-19] MEDS: CALCIUM 600MG + VIT D 400 IU TAB PO SCH (14:21)
[2020-05-19] MEDS: DOCUSATE SODIUM 100 MG CAP PO SCH ×2 (14:21→20:47)
[2020-05-19] MEDS: VENLAFAXINE HCL XR 75 MG CAPXR PO SCH (14:21)
[2020-05-19] MEDS: MAGNESIUM OXIDE 400 MG TAB PO SCH (14:22)
[2020-05-19] MEDS: POLYETHYLENE (MIRALAX) 17 GM PACK PO SCH (14:22)
[2020-05-19] MEDS: SODIUM CHLORIDE 1 GM TABLET PO SCH ×2 (14:22→20:50)
[2020-05-19] MEDS: CHOLECALCIFEROL 1,000 UNITS 25 MCG TAB PO SCH (14:22)
[2020-05-19] MEDS: FINASTERIDE 5 MG TAB PO SCH (14:22)
[2020-05-19] MEDS: FUROSEMIDE 20 MG TAB PO SCH ×2 (14:22→17:00)
[2020-05-19] MEDS: VITAMIN B COMPLEX TAB PO SCH (14:22)
[2020-05-19] MEDS: LIDOCAINE 5% 1 PATCH TD SCH (14:22)
[2020-05-19] MEDS: GABAPENTIN 800 MG TAB PO SCH ×3 (14:22→20:48)
[2020-05-19] MEDS: ACETAMINOPHEN 500 MG TAB PO SCH ×2 (14:23→20:48)
--- NOTE | 2020-05-19 14:32 | Fluoroscopy Report ---
FL hip LT 2-3V CLINICAL HISTORY: ORIF COMPARISON STUDY: Left hip radiographs May 18, 2020. FLUOROSCOPY TIME: 1 minute and 24 seconds. FLUOROSCOPIC IMAGES: 4 FINDINGS: Fluoroscopy was provided for internal fixation of the intertrochanteric fracture of the lef t femur. Fracture alignment has markedly improved. Fracture alignment is near anatomic. The hardware is intact. IMPRESSION: Fluoroscopy provided for internal fixation of the intertrochanteric fracture of the left femur. ACT 112: Negative or not required by law. Electronically signed by: Javed Cary M.D. 05/19/2020 2:31 PM
--- NOTE | 2020-05-19 14:39 | Electrocardiogram Report ---
Test Reason : Blood Pressure : / mmHG Vent. Rate : 086 BPM Atrial Rate : 086 BPM P-R Int : 258 ms QRS Dur : 102 ms QT Int : 384 ms P-R-T Axes : 073 015 061 degrees QTc Int : 459 ms Sinus rhythm with 1st degree A-V block Incomplete right bundle branch block Septal infarct , age undetermined Abnormal ECG When compared with ECG of 03-APR-2020 18:01, Septal infarct is now Present Confirmed by Ramior Maynard ([id number]) on 05/19/2020 2:38:44 PM Referred By: [facility] Confirmed By:Ramiro Maynard
[2020-05-19] MEDS ORDERED: ACETAMINOPHEN 500 MG TAB PO PRN (14:48)
[2020-05-19] MEDS ORDERED: NALOXONE HCL 0.4 MG/1 ML VIAL/CARP IV PRN (14:48)
--- NOTE | 2020-05-19 14:48 | Operative Report ---
Post Operative Report Pre & Post Diagnosis Operation Date: 05/19/20 09:00 Pre-Op Diagnosis: Left Hip Fracture Post-Op Diagnosis: Left Hip Fracture I identified the patient and participated in the time-out.: Yes Procedure Operation Date: 05/19/20 09:00 Actual Procedures p Left Hip Open Reduction Internal Fixation Dynamic Hip Screw(Left) - David Cherry MD Surgeon David Cherry MD [employer] Captain KAYODE Saenz PA-C Estimated Blood Loss 200 Findings Consistent with Post-Op Diagnosis Specimens none Complications none Disposition Accompanied Patient To Recovery: Yes Disposition: Recovery Room Description of Procedure I was present during the entire case assisting with positioning, retraction, wound closure and dressing application. No fellow available. Please see Dr. Cherry procedure note for specifics of the case. I attest to the content of the Intraoperative Record and any orders documented therein. Any exceptions are noted below.
[2020-05-19] MEDS ORDERED: DiphenhydrAMINE HCL 50 MG/ML VIAL IV PRN (14:53)
[2020-05-19] MEDS ORDERED: METOCLOPRAMIDE HCL INJ 5 MG/ML 2 ML VIAL IV PRN (14:53)
--- NOTE | 2020-05-19 15:20 | XRay Report ---
XR hip LT min 2V CLINICAL HISTORY: Post-Operative implant position COMPARISON: Left hip radiographs May 18, 2020 FINDINGS: Hardware fixates the intertrochanteric fracture of the left femur. Hardware is intact. Fra cture alignment has significantly improved and is near anatomic. There are no unexpected radiopaque b odies. There are skin don. IMPRESSION: Expected findings following internal fixation of the intertrochanteric fracture of the le ft femur. ACT 112: Negative or not required by law. Electronically signed by: Javed Cary M.D. 05/19/2020 3:19 PM
--- NOTE | 2020-05-19 15:27 | Anesthesiology Progress Note ---
Date of Service May 19, 2020 Anesthesia Post Procedure Vital Signs Vital Signs: Temp Pulse Pulse Resp BP BP Pulse Ox 05/19/20 15:20 97.7 F 96 H 14 134/80 96 05/19/20 15:10 97 H 16 145/78 H 95 05/19/20 15:00 87 18 152/76 H 97 05/19/20 14:50 97.0 F L 87 15 171/78 H 95 05/19/20 08:20 98.2 F 87 15 134/65 96 05/18/20 23:45 05/18/20 23:17 98.1 F 83 16 121/65 96 05/18/20 22:00 91 H 21 149/65 H 95 05/18/20 21:30 90 14 109/66 95 05/18/20 21:00 89 12 137/94 94 05/18/20 20:30 86 14 131/68 93 05/18/20 20:00 90 14 120/61 96 05/18/20 19:30 90 12 122/65 94 05/18/20 19:24 91 H 15 115/63 95 05/18/20 19:00 94 H 14 05/18/20 18:00 94 H 16 132/64 96 05/18/20 17:30 95 H 15 134/67 95 05/18/20 17:29 94 H 14 137/66 95 05/18/20 17:14 84 L 05/18/20 17:00 91 H 17 141/64 H 94 05/18/20 16:48 98.6 F 106 H 24 128/64 84 L 05/18/20 16:42 88 15 128/64 94 Pulse Ox 05/19/20 15:20 05/19/20 15:10 05/19/20 15:00 05/19/20 14:50 05/19/20 08:20 05/18/20 23:45 96 05/18/20 23:17 05/18/20 22:00 05/18/20 21:30 05/18/20 21:00 05/18/20 20:30 05/18/20 20:00 05/18/20 19:30 05/18/20 19:24 05/18/20 19:00 05/18/20 18:00 05/18/20 17:30 05/18/20 17:29 05/18/20 17:14 05/18/20 17:00 05/18/20 16:48 05/18/20 16:42 Pain Intensity Left Hip: Pain Intensity: 7 Transfer of Care Handoff Completed per policy Notes Mental Status: alert / awake / arousable and participated in evaluation Patient Amnestic to Procedure: Yes Nausea / Vomiting: adequately controlled Pain: adequately controlled Airway Patency, RR, SpO2: stable & adequate BP & HR: stable & adequate Hydration State: stable & adequate Anesthetic Complications: no major complications apparent and Pt Satisfied with anesthetic care
--- NOTE | 2020-05-19 15:37 | Operative Report (OR) ---
DATE OF OPERATION: 05/19/2020 PREOPERATIVE DIAGNOSIS: Left intertrochanteric femur fracture. POSTOPERATIVE DIAGNOSIS: Left intertrochanteric femur fracture. OPERATION PERFORMED: Open reduction internal fixation left intertrochanteric femur fracture using a DHS screw and sideplate. SURGEON: David Cherry MD. [employer]ER SURGEON: Ganesh Saenz PA-C. No resident or fellow was available to assist. ESTIMATED BLOOD LOSS: 200 mL. IV FLUIDS: 800 mL crystalloid. SPECIMENS: None. COMPLICATIONS: None. IMPLANTS: 1. Synthes 135 degree DHS plate with a standard barrel 4-hole length. 2. A 100 mm DHS screw. 3. 4.5 mm cortical screws measuring 38 x2, 42, and 44 mm. 4. One DHS 36 mm compression screw. INDICATIONS: The patient is a 79-year-old gentleman with a medical history significant for a stroke within the past year and 5 falls in the last several months. He fell yesterday sustaining an intertrochanteric left femur fracture. Orthopedics was consulted. I spoke with the patient as well as his daughter, Fabrice, about the diagnosis and treatment options. After reviewing the risks and benefits of surgery, alternatives to surgery and expected outcomes, they elected to proceed. All questions were answered. Informed consent was signed. OPERATIVE FINDINGS: The fracture was reduced on the fracture table and stabilized with a 4-hole DHS screw and sideplate plus a compression screw. DESCRIPTION OF THE OPERATION: The patient was identified on the floor where his surgical site was marked. He was brought back to main Operating Room where general anesthesia was administered on the hospital bed. He was then carefully moved over onto the Operating Room fracture table. All bony prominences were padded. The contralateral leg was placed into abduction and flexion to allow for C-arm fluoroscopy. The operative leg was then placed into traction. C-arm fluoroscopy was brought in. We optimized the traction on his leg and then internally rotated the foot, which gave us an excellent reduction of the fracture. We slightly over reduced the fracture to place the fracture in valgus to facilitate the biomechanics of healing. We then prepped and draped the leg in normal sterile fashion. Prior to incision, a multidisciplinary timeout was called. All in the room were in agreement. We began by injecting the surgical site with a total of 10 mL of 0.5% Marcaine with epinephrine. We then made a 4-inch long incision along the lateral aspect of the femur. We dissected down through subcutaneous tissues to the level of the fascia. The fascia was incised in line with the incision. The vastus lateralis was incised along its posterior border and then we dissected down subperiosteally onto the bone lifting the vastus anteriorly out of the way. We then identified our starting point. The 135-degree angle guide gave us the optimal trajectory. Our guidewire was started on the lateral femur on the AP view. On the lateral view, this starting point was slightly more anterior than optimal to give us our center-center position in the femoral head. Therefore, a second wire was placed just slightly posterior to the first wire. This was then driven up through the center of the femoral neck and into the center-center position on the femoral head. It measured 112 mm. Therefore, we set the drill at 110 mm and elected to use 100 mm DHS screw. We drilled up into the femoral head without difficulty. The tap was then used. We had a good resistance on the tap without causing displacement of the fracture. Therefore, the 100 mm DHS screw was placed up over the guidewire. Again, excellent torque was obtained with fixation up into the femoral head. We then opened up 135 degree 4-hole DHS sideplate with a standard barrel. This was impacted down over the top of the sliding screw. It sat down nicely on the femur. We then placed 4 bicortical 4.5 mm screws. Fluoroscopy was used to confirm our proper screw lengths and position of the plate. Once the plate was tightened down onto the bone, we then placed a compression screw. This gave us a good compression of the fracture on the AP and lateral views. Next, the wound was irrigated out with copious amounts of normal saline. The fascia was run using a 0 Vicryl suture. The subcutaneous layers were closed with interrupted 0 Vicryl sutures. A 2-0 Vicryl was used for the deep dermal layer. [place] were used for the skin. The Orthomix was injected into the subcutaneous tissues prior to closure for postoperative pain control to minimize the amount of narcotics the patient will require after surgery. He was then moved over onto a hospital bed, extubated and transferred to the Recovery Room in stable condition. POSTOPERATIVE COURSE: The patient will be readmitted to the floor under the Internal Medicine Service. He will be weightbearing as tolerated on the left lower extremity. X-rays are pending in Recovery Room. Pooja 40 mg SQ daily for DVT prophylaxis starting tomorrow, recommend 28 days of therapy. I attest to the content of the Intraoperative Record and any orders documented therein. Any exceptions are noted below. MTDD
[2020-05-19] MEDS ORDERED: FLUTICASONE PROPIONATE NA SPR 16 GM BTL PRN (15:41)
[2020-05-19] MEDS ORDERED: Nursing to Pharmacy Communication SCH (16:00)
[2020-05-19] MEDS: CHECK SCOPOLAMINE PATCH PLACEMENT SCH ×2 (16:51→23:31)
[2020-05-19] MEDS: TAMSULOSIN HCL 0.4 MG CAP PO SCH (17:00)
[2020-05-19] MEDS ORDERED: TRAZODONE HCL 50 MG TAB PO SCH (20:30)
[2020-05-19] MEDS ORDERED: INSULIN GLARGINE SOLOSTAR 100 UNITS/ML 3 ML PEN SQ SCH (20:30)
[2020-05-19] MEDS: ARIPiprazole 5 MG TAB PO SCH (20:47)
[2020-05-19] MEDS: SIMVASTATIN 40 MG TAB PO SCH (20:47)
[2020-05-19] MEDS: AMLODIPINE BESYLATE 5 MG TAB PO SCH (20:49)
[2020-05-19] MEDS ORDERED: METFORMIN HCL 500 MG TAB PO SCH (21:00)
[2020-05-19] MEDS ORDERED: SODIUM CHLORIDE 0.9% 1000ML 500 ML IV ONE (22:09)
--- NOTE | 2020-05-19 22:11 | Billing Data ---
Date of Service May 19, 2020 Coding Level of Care Code 16427 Initial Inpt Care Lvl 2
[2020-05-20 06:04] LABS: Hematocrit (blood only) 27.8 % (42-52); Hemoglobin 9.3 g/dL (14.0-18.0); Mean Corpuscular Hgb Conc 33.5 g/dL (32-36); Mean Corpuscular Volume 89.7 fL (80-100); Platelet Count 88 K/uL (130-400); RDW Coefficient of Variation 13.9 % (11.5-14.5); RDW Standard Deviation 45.5 fL (36.4-46.3)
[2020-05-20 06:26] LABS: Basophils # (auto) 0.01 K/uL (0-0.2); Basophils % (auto) 0.1 %; Eosinophils # (auto) 0.11 K/uL (0-0.5); Eosinophils % (auto) 1.5 %; Immature Granulocytes # (auto) 0.01 K/uL (0.00-0.02); Immature Granulocytes % (auto) 0.1 %; Lymphocytes % (auto) 6.7 %; Monocytes # (auto) 0.59 K/uL (0.11-0.59); Monocytes % (auto) 7.9 %; Neutrophils # (auto) 6.28 K/uL (1.4-6.5); Neutrophils % (auto) 83.7 %
[2020-05-20 06:34] LABS: BUN Creatinine Ratio 22.1 (10-20); Calcium 8.1 mg/dl (8.5-10.1); Creatinine Clr Calc Pharmacy 108.8 ml/min; Est GFR (African American) 107.9; Est GFR (Non-African American) 93.1; Potassium 4.6 mmol/L (3.5-5.1)
--- NOTE | 2020-05-20 07:22 | Orthopedic Progress Note ---
Date of Service May 20, 2020 Assessment & Plan (1) Closed intertrochanteric fracture of left hip: PT/OT WBAT with walker assistance Keep dressing in place Ice with EZ wrap Pain control with PO meds DVT prophy with SCD's and Lovenox Plan on DC to SNF when available. Case Management to do eval. Appreciate medicine service help with this patient Will need 2 wks post op f/u at [facility]. Admission and Anticipated Discharge Date Admission Date: May 18, 2020 Subjective This 79 yo M is day 1 s/p left Hip fracture ORIF with DHS screw. Patient was sleeping when I entered the room but was easily arousable. He was able to answer all questions asked. He denies hip pain at this time. He also denies CP, SOB, nausea, vomiting, fever, chills, sweats or numbness/tingling in the left lower extremity. Review of Systems Review of Systems: All systems reviewed & are unremarkable except as noted in Subjective Physical Exam Physical Exam: Left Hip: Dressing clean, dry and intact. Neg log roll. Minimal pain with very light passive internal/external hip rotation. Unable to perform SLRT but can actively dorsi/plantar flex foot and slightly fire his quad. Calf is soft and supple. Periph pulses palpable. Cap refill < 2 seconds. Results & Data ([facility]) Vital Signs (Past 12 Hours) Vital Signs Temp Pulse Resp BP Pulse Ox Pulse Ox 05/20/20 05:48 99 05/20/20 03:24 36.3 C L 85 18 123/62 99 05/19/20 23:30 96 05/19/20 22:59 37.4 C 95 H 16 134/66 96 Laboratory Results 05/20/20 05/20/20 05/19/20 Range/Units 05:32 05:32 20:41 WBC 7.50 (4.8-10.8) K/uL RBC 3.10 L (4.7-6.1) M/uL Hgb 9.3 L (14.0-18.0) g/dL Hct 27.8 L (42-52) % MCV 89.7 (80-100) fL MCH 30.0 (25-34) pg MCHC 33.5 (32-36) g/dL RDW Std Deviation 45.5 (36.4-46.3) fL RDW Coeff of Ja 13.9 (11.5-14.5) % Plt Count 88 L (130-400) K/uL MPV 11.0 H (7.4-10.4) fL Immature Gran % (Auto) 0.1 % Neut % (Auto) 83.7 % Lymph % (Auto) 6.7 % Power % (Auto) 7.9 % Eos % (Auto) 1.5 % Baso % (Auto) 0.1 % Neut # (Auto) 6.28 (1.4-6.5) K/uL Lymph # (Auto) 0.50 L (1.2-3.4) K/uL Power # (Auto) 0.59 (0.11-0.59) K/uL Eos # (Auto) 0.11 (0-0.5) K/uL Baso # (Auto) 0.01 (0-0.2) K/uL Immature Gran # (Auto) 0.01 (0.00-0.02) K/uL Sodium 138 (136-145) mmol/L Potassium 4.6 (3.5-5.1) mmol/L Chloride 109 H (98-107) mmol/L Carbon Dioxide 28 (21-32) mmol/L Anion Gap 1.0 L (3-11) BUN 14 (7-18) mg/dl Creatinine 0.64 (0.6-1.4) mg/dl Est Cr Clr Drug Dosing 108.8 ml/min Est GFR ( Amer) 107.9 Est GFR (Non-Af Amer) 93.1 BUN/Creatinine Ratio 22.1 H (10-20) Glucose 135 H (70-99) mg/dl POC Glucose 190 H (70-99) mg/dl Calcium 8.1 L (8.5-10.1) mg/dl Troponin I (0-0.045) ng/ml COVID-19 PCR (Negative) 05/19/20 05/19/20 05/19/20 Range/Units 17:18 15:07 09:00 WBC (4.8-10.8) K/uL RBC (4.7-6.1) M/uL Hgb (14.0-18.0) g/dL Hct (42-52) % MCV (80-100) fL MCH (25-34) pg MCHC (32-36) g/dL RDW Std Deviation (36.4-46.3) fL RDW Coeff of Ja (11.5-14.5) % Plt Count (130-400) K/uL MPV (7.4-10.4) fL Immature Gran % (Auto) % Neut % (Auto) % Lymph % (Auto) % Power % (Auto) % Eos % (Auto) % Baso % (Auto) % Neut # (Auto) (1.4-6.5) K/uL Lymph # (Auto) (1.2-3.4) K/uL Power # (Auto) (0.11-0.59) K/uL Eos # (Auto) (0-0.5) K/uL Baso # (Auto) (0-0.2) K/uL Immature Gran # (Auto) (0.00-0.02) K/uL Sodium (136-145) mmol/L Potassium (3.5-5.1) mmol/L Chloride (98-107) mmol/L Carbon Dioxide (21-32) mmol/L Anion Gap (3-11) BUN (7-18) mg/dl Creatinine (0.6-1.4) mg/dl Est Cr Clr Drug Dosing ml/min Est GFR ( Amer) Est GFR (Non-Af Amer) BUN/Creatinine Ratio (10-20) Glucose (70-99) mg/dl POC Glucose 160 H 160 H (70-99) mg/dl Calcium (8.5-10.1) mg/dl Troponin I (0-0.045) ng/ml COVID-19 PCR NEGATIVE (Negative) 05/19/20 05/19/20 Range/Units 07:12 06:03 WBC 6.54 (4.8-10.8) K/uL RBC 4.00 L (4.7-6.1) M/uL Hgb 11.8 L (14.0-18.0) g/dL Hct 36.4 L (42-52) % MCV 91.0 (80-100) fL MCH 29.5 (25-34) pg MCHC 32.4 (32-36) g/dL RDW Std Deviation 45.3 (36.4-46.3) fL RDW Coeff of Ja 13.6 (11.5-14.5) % Plt Count 85 L (130-400) K/uL MPV 11.0 H (7.4-10.4) fL Immature Gran % (Auto) 0.2 % Neut % (Auto) 79.9 % Lymph % (Auto) 10.4 % Power % (Auto) 7.8 % Eos % (Auto) 1.5 % Baso % (Auto) 0.2 % Neut # (Auto) 5.23 (1.4-6.5) K/uL Lymph # (Auto) 0.68 L (1.2-3.4) K/uL Power # (Auto) 0.51 (0.11-0.59) K/uL Eos # (Auto) 0.10 (0-0.5) K/uL Baso # (Auto) 0.01 (0-0.2) K/uL Immature Gran # (Auto) 0.01 (0.00-0.02) K/uL Sodium (136-145) mmol/L Potassium (3.5-5.1) mmol/L Chloride (98-107) mmol/L Carbon Dioxide (21-32) mmol/L Anion Gap (3-11) BUN (7-18) mg/dl Creatinine (0.6-1.4) mg/dl Est Cr Clr Drug Dosing ml/min Est GFR ( Amer) Est GFR (Non-Af Amer) BUN/Creatinine Ratio (10-20) Glucose (70-99) mg/dl POC Glucose (70-99) mg/dl Calcium (8.5-10.1) mg/dl Troponin I < 0.015 (0-0.045) ng/ml COVID-19 PCR (Negative) (1) Closed intertrochanteric fracture of left hip Encounter type: initial encounter Fracture alignment: displaced Qualified Code(s): S72.142A - Displaced intertrochanteric fracture of left femur, initial encounter for closed fracture
[2020-05-20 08:58] LABS: Albumin Level 2.6 gm/dl (3.4-5.0); Bilirubin Direct 0.1 mg/dl (0-0.2); Bilirubin,Total 0.4 mg/dl (0.2-1); Total Protein 5.4 gm/dl (6.4-8.2)
[2020-05-20] MEDS: CHECK SCOPOLAMINE PATCH PLACEMENT SCH ×2 (09:13→15:48)
[2020-05-20] MEDS: DOCUSATE SODIUM 100 MG CAP PO SCH ×2 (09:16→20:36)
[2020-05-20] MEDS: BusPIRone 15 MG TAB PO SCH ×2 (09:16→15:49)
[2020-05-20] MEDS: SPIRONOLACTONE 25 MG TAB PO SCH ×2 (09:16→20:37)
[2020-05-20] MEDS: VENLAFAXINE HCL XR 75 MG CAPXR PO SCH (09:17)
[2020-05-20] MEDS: ASPIRIN 81 MG ECTAB PO SCH (09:17)
[2020-05-20] MEDS: CALCIUM 600MG + VIT D 400 IU TAB PO SCH (09:17)
[2020-05-20] MEDS: MAGNESIUM OXIDE 400 MG TAB PO SCH (09:18)
[2020-05-20] MEDS: GABAPENTIN 800 MG TAB PO SCH ×3 (09:18→20:37)
[2020-05-20] MEDS: FUROSEMIDE 20 MG TAB PO SCH ×2 (09:18→16:44)
[2020-05-20] MEDS: ACETAMINOPHEN 500 MG TAB PO SCH ×3 (09:19→20:47)
[2020-05-20] MEDS: SODIUM CHLORIDE 1 GM TABLET PO SCH ×2 (09:19→20:34)
[2020-05-20] MEDS: FINASTERIDE 5 MG TAB PO SCH (09:19)
[2020-05-20] MEDS: VITAMIN B COMPLEX TAB PO SCH (09:20)
[2020-05-20] MEDS: CHOLECALCIFEROL 1,000 UNITS 25 MCG TAB PO SCH (09:20)
[2020-05-20] MEDS: INSULIN GLARGINE SOLOSTAR 100 UNITS/ML 3 ML PEN SC SCH ×2 (09:25→20:39)
[2020-05-20] MEDS: INSULIN ASPART 100 UNITS/ML 3 ML PEN SC SCH ×4 (09:29→20:42)
[2020-05-20] MEDS: POLYETHYLENE (MIRALAX) 17 GM PACK PO SCH (09:32)
[2020-05-20] MEDS: LIDOCAINE 5% 1 PATCH TD SCH (09:33)
--- NOTE | 2020-05-20 13:57 | CT Scan Report ---
CT head/brain wo con CLINICAL HISTORY: 79 years-old Male with lethargic, recent falls/hip fx. Acute head injury status po st fall TECHNIQUE: Multiple axial CT images of the head were obtained without contrast. A dose lowering tech nique was utilized adhering to the principles of ALARA. CT DOSE: 614.27 mGy.cm COMPARISON: CTA of the head 04/06/2020, brain MRI 04/05/2020. FINDINGS: No acute intracranial hemorrhage, midline shift, intracranial mass, hydrocephalus, territorial ischem ia or abnormal extra-axial collection. Age-related involutional changes with ex vacuo ventriculomegal y. Patchy white matter hypodensities suggest chronic microvascular ischemic disease. Cerebral vascula r calcifications. No acute calvarial fracture. Demineralized appearance of the parietal occipital calvarium near the ap ex with associated cortical thinning appears similar to comparison. No focal lesion was identified wi thin this area on comparison brain MRI. Trace left mastoid effusion. Chronic volume loss of the left maxillary sinus. Hypoplastic right frontal sinus. Prior bilateral lens replacement. IMPRESSION: No acute intracranial abnormality or calvarial fracture. ACT 112: Negative or not required by law. The above report was generated using voice recognition software. It may contain grammatical, syntax o r spelling errors. Electronically signed by: Stanley Mas M.D. 05/20/2020 1:56 PM
--- NOTE | 2020-05-20 14:36 | XRay Report ---
XR thoracic spine 3V routine, XR lumbar spine 2-3V HISTORY: 79 years-old Male back pain . Mid and lower back pain without reported trauma COMPARISON: CT abdomen and pelvis 03/17/2020 TECHNIQUE: 3 views of the thoracic spine and 3 views of the lumbar spine FINDINGS: THORACIC: Demineralized appearance of the bones. Mostly mild multilevel disc space narrowing with spondylitic s purring and facet arthrosis. Compression deformity involving the anterior, mid and posterior aspects of the T12 vertebral body are new from comparison. No retropulsion identified. There is less than 20% anterior wedging of T11 which is likely chronic. Cervicothoracic junction is suboptimally visualized secondary to overlying soft tissue. At least moderate disc space narrowing and spondylitic spurring is noted within the imaged lower cervical spine. Prior median sternotomy. Cardiomegaly. LUMBAR: Mild levoscoliosis. Mostly mild multilevel disc space narrowing with moderate disc space narrowing at L5-S1. Severe facet arthrosis at L4/L5 and L5-S1 with mild multilevel spondylitic spurring. No acute fracture or subluxation of the lumbar spine. Calcified plaque the abdominal aorta. Soft tissues are unremarkable. Partially imaged hardware of the left hip. Remote ununited fracture of the left 12th ri b. IMPRESSION: 1. Acute versus subacute T12 burst fracture without retropulsion, new from 03/17/2020. 2. No acute fracture or subluxation of the lumbar spine. ACT 112: Negative or not required by law. The above report was generated using voice recognition software. It may contain grammatical, syntax o r spelling errors. Electronically signed by: Stanley Mas M.D. 05/20/2020 2:35 PM
[2020-05-20] MEDS: ENOXAPARIN INJ 40 MG/0.4 ML SYR SQ SCH (14:40)
--- NOTE | 2020-05-20 14:40 | Hospitalist Progress Note ---
Date of Service May 20, 2020 Assessment & Plan (1) Closed intertrochanteric fracture of left hip: 79-year-old male with extensive medical past medical history noted transferred via EMS from [facility] for reported fall out of wheelchair seen to have closed left hip fracture on imaging. * Hip/Pelvis XR- Intertrochanteric left femoral fracture * Pain management with ANTHONY Tylenol, lidocaine patch, prn IV morphine * Ortho consulted * POD #1 s/p LEFT ORIF with Dr. Cherry. Pre-op h/h 11.8/36.4. EBL 200mL * PT/OT/DVT per orthopedics -- patient to have SCDs, Lovenox x 2 week for DVT proph * CM assisting with placement as daughter looking into different facilities * H/h low at 9.3/27.8 -- likely aspect of acute blood loss following surgery as well as IVF * CBC in AM *Patient with multiple falls at [facility] -- complaints of low back pain compared to in the past --> XRAY Lumbar/Thoracic spine ordered * Acute versus subacute T12 burst fracture without retropulsion, new from 03/17/2020 without subluxation or acute fracture of lumbar spine * Ortho spine consulted -- Dr. Burnett aware of consult and to see patient on Thursday * Ordered TLSO brace but will confirm with Dr. Cherry ok to use given recent hip Some lethargy this morning. Ammonia minimally elevated. Watch BMs given hx cirrh osis. Discontinued scopolamine patch. CT Head without acute findings. Of note, patient with hx small CVA noted on consultation by Dr Madie Madrid in the past. He also had gabapentin decreased recently to the 800mg TID and amantadine discontinued. Will hold evening trazodone. (2) Hypertension: * Chronic. BP 113/58 * Continue home home amlodipine to 7.5mg HS, spironolactone 25 mg BID , hydralazine prn, Lasix 20 mg BID * Continue to monitor (3) Hyperlipidemia: * Chronic. Continue home simvastatin 40mg PO HS (4) CHF (congestive heart failure): * ECHO March 2020 -- EF 55-60%, normal LVSF, no significant change since April 2019 * Continue home spironolactone, lasix as above * No s/sx overload (5) Type 2 diabetes mellitus: * Chronic. Last A1c 5.7 04/2020 * On glargine, aspate, metformin BID outpatient -- held while inpatient * ISS while inpatient * BSG ac/hs * Continue to monitor (6) Chronic respiratory failure with hypoxia: * with mixed restrictive/obstructive lung disease -- to be on 3.5L O2 via NC outpatient -- per patient he only utilizes this sometimes. Has seen Dr. 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 Continue home Gabapentin 800mg TID (9) Tardive dyskinesia: * Thought to be related to home antipsychotic, on aripiprazole * Follows psych outpatient * Per neurology, his home gabapentin dosing was decreased from QID to TID as above and his home amantadine was discontinued (10) Microscopic hematuria: * On prior discharge, plan was for outpatient cystoscopy with urology. No UA RBCs seen on this admit (11) Anxiety with depression: * Chronic * Continue home buspirone, effexor * Trazodone held this evening to avoid increased lethargy (12) Chronic respiratory failure with hypoxia, on home oxygen therapy: * See above (13) TERI (obstructive sleep apnea): * Has BiPAP but doesn't wear -- utilizes O2 via NC -- continue while inpatient (14) Thrombocytopenia: * Admit platelets 96 -- low at 88 * Seen by hematology in 2018, noted thrombocytopenia likely related to Hepatitis C (s/p blood transfusion) * Continue to monitor (15) Chronic viral hepatitis: * Secondary to blood transfusion. (16) Elevated alkaline phosphatase level: * 119 on morning labs -- elevated at 181 on discharge March 2020 * CMP now wnl (17) Thoracic compression fracture: * Has had numerous falls at the custodial since last admission and complains of back pain * X-rays of thoracic and lumbar spine show a acute to subacute T12 burst fracture without retropulsion * Consult spine surgery (18) DVT prophylaxis: * SCDs * Lovenox x 2 weeks Daughter is Niyah ([phone]), lives in [place] but in room today with patient. Admission and Anticipated Discharge Date Admission Date: May 18, 2020 Supervising Physician Co-Signing Physician Notes PA Supervision Note: I did not personally see or examine the patient today, but I verified all massey points of HANNAH Morse's assessment and plan with the following exceptions/additions: None Subjective Patient evaluated later in the morning. Per nursing, patient up and ate breakfast. Was difficult to arouse upon entering room. Daughter present and states he has been sleeping soundly. Upon awaking, patient answering questions appropriately. Pain to left hip but tolerable with medication. Eating/drinking without difficulty. Still with some lower back pain. Per daughter, patient had been complaining of increasing back pain, which wasn't overly concerning given his chronic back pain, but she states she had noticed him saying things about it more frequently. Discussed that we will investigate to make sure no other fractures or findings as he had approximately 5 falls in a short period of time at [facility]. Daughter currently speaking with CM about alternative options as she drove from [place] yesterday. Denies fevers,chills, cp, sob, abd pain, n/v at this time. Review of Systems Review of Systems: All systems reviewed & are unremarkable except as noted in HPI & below Physical Exam Constitutional: + physical limitations and cooperative; no acute distress Eyes: PERRL, conjunctivae normal, anicteric sclerae ENMT: Ears: no hearing impairment Nose: no external nose abnormality Neck: normal visual inspection Respiratory: normal respiratory effort, lungs clear to auscultation Cardiovascular: RRR, no murmur, no edema Gastrointestinal (Abdomen): normal bowel sounds, soft, nontender, no hepatosplenomegaly Musculoskeletal: dressing to L hip c/d/i Minimally tender to palpation at incision and to lateral thigh NVI 2+ dp pt pulses bilaterally calves non-tender tender to palpation along lumbar/thoracic spine Neurologic: patellar DTR's 2+ bilat, sensation intact Psychiatric: Orientation: oriented to person and oriented to place drowsy Lymphatic: no cervical or axillary lymphadenopathy Results & Data Results & Data ([facility]) Vital Signs (Past 12 Hours) Vital Signs Temp Pulse Resp BP Pulse Ox Pulse Ox 05/20/20 12:10 36.6 C 91 H 18 111/65 100 05/20/20 07:00 36.5 C 89 20 137/74 99 05/20/20 05:48 99 05/20/20 03:24 36.3 C L 85 18 123/62 99 Laboratory Results 05/20/20 05/20/20 05/20/20 Range/Units 12:32 12:07 08:07 WBC (4.8-10.8) K/uL RBC (4.7-6.1) M/uL Hgb (14.0-18.0) g/dL Hct (42-52) % MCV (80-100) fL MCH (25-34) pg MCHC (32-36) g/dL RDW Std Deviation (36.4-46.3) fL RDW Coeff of Ja (11.5-14.5) % Plt Count (130-400) K/uL MPV (7.4-10.4) fL Immature Gran % (Auto) % Neut % (Auto) % Lymph % (Auto) % [place] % (Auto) % Eos % (Auto) % Baso % (Auto) % Neut # (Auto) (1.4-6.5) K/uL Lymph # (Auto) (1.2-3.4) K/uL [place] # (Auto) (0.11-0.59) K/uL Eos # (Auto) (0-0.5) K/uL Baso # (Auto) (0-0.2) K/uL Immature Gran # (Auto) (0.00-0.02) K/uL Sodium (136-145) mmol/L Potassium (3.5-5.1) mmol/L Chloride (98-107) mmol/L Carbon Dioxide (21-32) mmol/L Anion Gap (3-11) BUN (7-18) mg/dl Creatinine (0.6-1.4) mg/dl Est Cr Clr Drug Dosing ml/min Est GFR ( Amer) Est GFR (Non-Af Amer) BUN/Creatinine Ratio (10-20) Glucose (70-99) mg/dl POC Glucose 236 H 147 H (70-99) mg/dl Calcium (8.5-10.1) mg/dl Total Bilirubin (0.2-1) mg/dl Direct Bilirubin (0-0.2) mg/dl AST (15-37) U/L ALT (12-78) U/L Alkaline Phosphatase (45-117) U/L Ammonia 36.0 H (11-32) umol/L Total Protein (6.4-8.2) gm/dl Albumin (3.4-5.0) gm/dl 07/05/20 07/05/20 07/05/20 Range/Units 05:32 05:32 05:32 WBC 7.50 (4.8-10.8) K/uL RBC 3.10 L (4.7-6.1) M/uL Hgb 9.3 L (14.0-18.0) g/dL Hct 27.8 L (42-52) % MCV 89.7 (80-100) fL MCH 30.0 (25-34) pg MCHC 33.5 (32-36) g/dL RDW Std Deviation 45.5 (36.4-46.3) fL RDW Coeff of Ja 13.9 (11.5-14.5) % Plt Count 88 L (130-400) K/uL MPV 11.0 H (7.4-10.4) fL Immature Gran % (Auto) 0.1 % Neut % (Auto) 83.7 % Lymph % (Auto) 6.7 % [place] % (Auto) 7.9 % Eos % (Auto) 1.5 % Baso % (Auto) 0.1 % Neut # (Auto) 6.28 (1.4-6.5) K/uL Lymph # (Auto) 0.50 L (1.2-3.4) K/uL [place] # (Auto) 0.59 (0.11-0.59) K/uL Eos # (Auto) 0.11 (0-0.5) K/uL Baso # (Auto) 0.01 (0-0.2) K/uL Immature Gran # (Auto) 0.01 (0.00-0.02) K/uL Sodium 138 (136-145) mmol/L Potassium 4.6 (3.5-5.1) mmol/L Chloride 109 H (98-107) mmol/L Carbon Dioxide 28 (21-32) mmol/L Anion Gap 1.0 L (3-11) BUN 14 (7-18) mg/dl Creatinine 0.64 (0.6-1.4) mg/dl Est Cr Clr Drug Dosing 108.8 ml/min Est GFR ( Amer) 107.9 Est GFR (Non-Af Amer) 93.1 BUN/Creatinine Ratio 22.1 H (10-20) Glucose 135 H (70-99) mg/dl POC Glucose (70-99) mg/dl Calcium 8.1 L (8.5-10.1) mg/dl Total Bilirubin 0.4 (0.2-1) mg/dl Direct Bilirubin 0.1 (0-0.2) mg/dl AST 18 (15-37) U/L ALT 18 (12-78) U/L Alkaline Phosphatase 101 (45-117) U/L Ammonia (11-32) umol/L Total Protein 5.4 L (6.4-8.2) gm/dl Albumin 2.6 L (3.4-5.0) gm/dl 05/19/20 05/19/20 Range/Units 20:41 17:18 WBC (4.8-10.8) K/uL RBC (4.7-6.1) M/uL Hgb (14.0-18.0) g/dL Hct (42-52) % MCV (80-100) fL MCH (25-34) pg MCHC (32-36) g/dL RDW Std Deviation (36.4-46.3) fL RDW Coeff of Ja (11.5-14.5) % Plt Count (130-400) K/uL MPV (7.4-10.4) fL Immature Gran % (Auto) % Neut % (Auto) % Lymph % (Auto) % [place] % (Auto) % Eos % (Auto) % Baso % (Auto) % Neut # (Auto) (1.4-6.5) K/uL Lymph # (Auto) (1.2-3.4) K/uL [place] # (Auto) (0.11-0.59) K/uL Eos # (Auto) (0-0.5) K/uL Baso # (Auto) (0-0.2) K/uL Immature Gran # (Auto) (0.00-0.02) K/uL Sodium (136-145) mmol/L Potassium (3.5-5.1) mmol/L Chloride (98-107) mmol/L Carbon Dioxide (21-32) mmol/L Anion Gap (3-11) BUN (7-18) mg/dl Creatinine (0.6-1.4) mg/dl Est Cr Clr Drug Dosing ml/min Est GFR ( Amer) Est GFR (Non-Af Amer) BUN/Creatinine Ratio (10-20) Glucose (70-99) mg/dl POC Glucose 190 H 160 H (70-99) mg/dl Calcium (8.5-10.1) mg/dl Total Bilirubin (0.2-1) mg/dl Direct Bilirubin (0-0.2) mg/dl AST (15-37) U/L ALT (12-78) U/L Alkaline Phosphatase (45-117) U/L Ammonia (11-32) umol/L Total Protein (6.4-8.2) gm/dl Albumin (3.4-5.0) gm/dl Diagnostic Findings CT Head IMPRESSION: No acute intracranial abnormality or calvarial fracture. Lumbar/Thoracic Spine 2-3V IMPRESSION: 1. Acute versus subacute T12 burst fracture without retropulsion, new from 03/17/2020. 2. No acute fracture or subluxation of the lumbar spine. PG Care Time/CCT Total # of Minutes Spent Total Time Spent with Patient: Total time spent is greater than 50% in coordination of care (as documented) at patient's floor/unit and/or counseling patient: Coding Level of Care Code 70468 Subseq Hosp Care Lvl 3 Diagnoses Closed intertrochanteric fracture of left hip S72.142A Encounter type: initial encounter Fracture alignment: displaced Hypertension I10 Hyperlipidemia E78.5 CHF (congestive heart failure) I50.9 Heart failure chronicity: unspecified Heart failure type: unspecified Type 2 diabetes mellitus E11.9 Chronic respiratory failure with hypoxia J96.11 Mixed restrictive and obstructive lung disease J43.9; J98.4 Peripheral neuropathy G62.9 Tardive dyskinesia G24.01 Microscopic hematuria R31.29 Anxiety with depression F41.8 Chronic respiratory failure with hypoxia, on home oxygen therapy J96.11; Z99.81 TERI (obstructive sleep apnea) G47.33 Thrombocytopenia D69.6 Chronic viral hepatitis B18.9 Elevated alkaline phosphatase level R74.8 Thoracic compression fracture S22.000A DVT prophylaxis Z29.9 (1) CHF (congestive heart failure) Heart failure chronicity: unspecified Heart failure type: unspecified Qualified Code(s): I50.9 - Heart failure, unspecified (2) Closed intertrochanteric fracture of left hip Encounter type: initial encounter Fracture alignment: displaced Qualified Code(s): S72.142A - Displaced intertrochanteric fracture of left femur, initial encounter for closed fracture
[2020-05-20] MEDS: TAMSULOSIN HCL 0.4 MG CAP PO SCH (15:49)
[2020-05-20] MEDS: SIMVASTATIN 40 MG TAB PO SCH (20:33)
[2020-05-20] MEDS: AMLODIPINE BESYLATE 5 MG TAB PO SCH (20:34)
[2020-05-20] MEDS: ARIPiprazole 5 MG TAB PO SCH (20:35)
[2020-05-20] MEDS: TRAMADOL HCL 50 MG TABLET PO PRN (20:43)
[2020-05-21 06:15] LABS: Hematocrit (blood only) 23.3 % (42-52); Hemoglobin 7.9 g/dL (14.0-18.0); Mean Corpuscular Hemoglobin 30.3 pg (25-34); Mean Corpuscular Hgb Conc 33.9 g/dL (32-36); Mean Corpuscular Volume 89.3 fL (80-100); RDW Coefficient of Variation 13.9 % (11.5-14.5); RDW Standard Deviation 45.5 fL (36.4-46.3); Red Blood Count 2.61 M/uL (4.7-6.1); White Blood Count 5.41 K/uL (4.8-10.8)
[2020-05-21 06:22] LABS: Mean Platelet Volume 10.3 fL (7.4-10.4); Platelet Count 98 K/uL (130-400)
[2020-05-21 06:35] LABS: Basophils # (auto) 0.01 K/uL (0-0.2); Basophils % (auto) 0.2 %; Eosinophils # (auto) 0.18 K/uL (0-0.5); Eosinophils % (auto) 3.3 %; Immature Granulocytes # (auto) 0.01 K/uL (0.00-0.02); Immature Granulocytes % (auto) 0.2 %; Lymphocytes # (auto) 0.94 K/uL (1.2-3.4); Lymphocytes % (auto) 17.4 %; Monocytes # (auto) 0.46 K/uL (0.11-0.59); Monocytes % (auto) 8.5 %; Neutrophils # (auto) 3.81 K/uL (1.4-6.5); Neutrophils % (auto) 70.4 %; RBC Morphology Unremarkable
[2020-05-21 06:50] LABS: Albumin Level 2.4 gm/dl (3.4-5.0); Calcium 8.1 mg/dl (8.5-10.1); Creatinine Clr Calc Pharmacy 103.9 ml/min; Est GFR (African American) 105.9; Est GFR (Non-African American) 91.4
[2020-05-21 06:53] LABS: Albumin Globulin Ratio 0.9 (0.9-2); Bilirubin,Total 0.2 mg/dl (0.2-1); Globulin 2.7 gm/dl (2.5-4.0); Total Protein 5.1 gm/dl (6.4-8.2)
[2020-05-21] MEDS: POLYETHYLENE (MIRALAX) 17 GM PACK PO SCH (09:27)
[2020-05-21] MEDS: VITAMIN B COMPLEX TAB PO SCH (09:31)
[2020-05-21] MEDS: CHOLECALCIFEROL 1,000 UNITS 25 MCG TAB PO SCH (09:31)
[2020-05-21] MEDS: ACETAMINOPHEN 500 MG TAB PO SCH ×3 (09:32→20:04)
[2020-05-21] MEDS: SODIUM CHLORIDE 1 GM TABLET PO SCH ×2 (09:32→20:04)
[2020-05-21] MEDS: GABAPENTIN 800 MG TAB PO SCH ×3 (09:33→20:04)
[2020-05-21] MEDS: FINASTERIDE 5 MG TAB PO SCH (09:33)
--- NOTE | 2020-05-21 09:33 | Orthopedic Progress Note ---
Date of Service May 21, 2020 Assessment & Plan (1) Closed intertrochanteric fracture of left hip: PT/OT WBAT with walker assistance Keep dressing in place Ice with EZ wrap Pain control with PO meds DVT prophy with SCD's and Lovenox Plan on DC to SNF when available. Case Management to do eval. Appreciate medicine service help with this patient Will need 2 wks post op f/u at [facility]. (2) Thoracic compression fracture: Dr. Burnett [facility] spine service consulted Admission and Anticipated Discharge Date Admission Date: May 18, 2020 Subjective This 79 yo M is day 2 s/p left Hip fracture ORIF with [facility] screw. Patient was sitting up in bed eating breakfast and speaking with his daughter Fabrice. He was able to answer all questions asked. He was much more lucid today than he had been previously. He denies hip pain at this time. He also denies CP, SOB, nausea, vomiting, fever, chills, sweats, loss of bowel/bladder function or numbness/tingling in the left lower extremity. Patient does complain of some mid back pain. Patient was dianosed with a T [address] Burnett has been consulted to evaluate patient. Review of Systems Review of Systems: All systems reviewed & are unremarkable except as noted in Subjective Physical Exam Physical Exam: Left Hip: Dressing clean, dry and intact. Neg log roll. Minimal pain with very light passive internal/external hip rotation. Unable to perform SLRT but can actively dorsi/plantar flex foot and slightly fire his quad. Calf is soft and supple. Periph pulses palpable. Cap refill < 2 seconds. Rt LE: NV intact able to perform SLRT. No dermatomal deficit Back: TTP over distal thoracic vertebral body without palpable deformity. Increased pain when he transitioned from the bed to chair yesteday. Results & Data ([facility]) Vital Signs (Past 12 Hours) Vital Signs Temp Pulse Resp BP Pulse Ox 05/21/20 07:48 36.7 C 83 17 120/64 96 05/21/20 00:27 36.7 C 84 14 111/62 96 Laboratory Results 05/21/20 05/21/20 05/21/20 Range/Units 08:21 05:45 05:45 WBC 5.41 (4.8-10.8) K/uL RBC 2.61 L (4.7-6.1) M/uL Hgb 7.9 L (14.0-18.0) g/dL Hct 23.3 L (42-52) % MCV 89.3 (80-100) fL MCH 30.3 (25-34) pg MCHC 33.9 (32-36) g/dL RDW Std Deviation 45.5 (36.4-46.3) fL RDW Coeff of Ja 13.9 (11.5-14.5) % Plt Count 98 L (130-400) K/uL MPV 10.3 (7.4-10.4) fL Immature Gran % (Auto) 0.2 % Neut % (Auto) 70.4 % Lymph % (Auto) 17.4 % [place] % (Auto) 8.5 % Eos % (Auto) 3.3 % Baso % (Auto) 0.2 % Neut # (Auto) 3.81 (1.4-6.5) K/uL Lymph # (Auto) 0.94 L (1.2-3.4) K/uL [place] # (Auto) 0.46 (0.11-0.59) K/uL Eos # (Auto) 0.18 (0-0.5) K/uL Baso # (Auto) 0.01 (0-0.2) K/uL Immature Gran # (Auto) 0.01 (0.00-0.02) K/uL RBC Morphology Unremarkable Sodium 139 (136-145) mmol/L Potassium 4.0 (3.5-5.1) mmol/L Chloride 105 (98-107) mmol/L Carbon Dioxide 30 (21-32) mmol/L Anion Gap 4.0 (3-11) BUN 14 (7-18) mg/dl Creatinine 0.67 (0.6-1.4) mg/dl Est Cr Clr Drug Dosing 103.9 ml/min Est GFR ( Amer) 105.9 Est GFR (Non-Af Amer) 91.4 BUN/Creatinine Ratio 21.0 H (10-20) Glucose 101 H (70-99) mg/dl POC Glucose 128 H (70-99) mg/dl Calcium 8.1 L (8.5-10.1) mg/dl Total Bilirubin 0.2 (0.2-1) mg/dl AST 12 L (15-37) U/L ALT 14 (12-78) U/L Alkaline Phosphatase 95 (45-117) U/L Ammonia (11-32) umol/L Total Protein 5.1 L (6.4-8.2) gm/dl Albumin 2.4 L (3.4-5.0) gm/dl Globulin 2.7 (2.5-4.0) gm/dl Albumin/Globulin Ratio 0.9 (0.9-2) 05/20/20 05/20/20 05/20/20 Range/Units 20:41 17:08 12:32 WBC (4.8-10.8) K/uL RBC (4.7-6.1) M/uL Hgb (14.0-18.0) g/dL Hct (42-52) % MCV (80-100) fL MCH (25-34) pg MCHC (32-36) g/dL RDW Std Deviation (36.4-46.3) fL RDW Coeff of Ja (11.5-14.5) % Plt Count (130-400) K/uL MPV (7.4-10.4) fL Immature Gran % (Auto) % Neut % (Auto) % Lymph % (Auto) % [place] % (Auto) % Eos % (Auto) % Baso % (Auto) % Neut # (Auto) (1.4-6.5) K/uL Lymph # (Auto) (1.2-3.4) K/uL [place] # (Auto) (0.11-0.59) K/uL Eos # (Auto) (0-0.5) K/uL Baso # (Auto) (0-0.2) K/uL Immature Gran # (Auto) (0.00-0.02) K/uL RBC Morphology Sodium (136-145) mmol/L Potassium (3.5-5.1) mmol/L Chloride (98-107) mmol/L Carbon Dioxide (21-32) mmol/L Anion Gap (3-11) BUN (7-18) mg/dl Creatinine (0.6-1.4) mg/dl Est Cr Clr Drug Dosing ml/min Est GFR ( Amer) Est GFR (Non-Af Amer) BUN/Creatinine Ratio (10-20) Glucose (70-99) mg/dl POC Glucose 280 H 219 H (70-99) mg/dl Calcium (8.5-10.1) mg/dl Total Bilirubin (0.2-1) mg/dl AST (15-37) U/L ALT (12-78) U/L Alkaline Phosphatase (45-117) U/L Ammonia 36.0 H (11-32) umol/L Total Protein (6.4-8.2) gm/dl Albumin (3.4-5.0) gm/dl Globulin (2.5-4.0) gm/dl Albumin/Globulin Ratio (0.9-2) 05/20/20 Range/Units 12:07 WBC (4.8-10.8) K/uL RBC (4.7-6.1) M/uL Hgb (14.0-18.0) g/dL Hct (42-52) % MCV (80-100) fL MCH (25-34) pg MCHC (32-36) g/dL RDW Std Deviation (36.4-46.3) fL RDW Coeff of Ja (11.5-14.5) % Plt Count (130-400) K/uL MPV (7.4-10.4) fL Immature Gran % (Auto) % Neut % (Auto) % Lymph % (Auto) % [place] % (Auto) % Eos % (Auto) % Baso % (Auto) % Neut # (Auto) (1.4-6.5) K/uL Lymph # (Auto) (1.2-3.4) K/uL [place] # (Auto) (0.11-0.59) K/uL Eos # (Auto) (0-0.5) K/uL Baso # (Auto) (0-0.2) K/uL Immature Gran # (Auto) (0.00-0.02) K/uL RBC Morphology Sodium (136-145) mmol/L Potassium (3.5-5.1) mmol/L Chloride (98-107) mmol/L Carbon Dioxide (21-32) mmol/L Anion Gap (3-11) BUN (7-18) mg/dl Creatinine (0.6-1.4) mg/dl Est Cr Clr Drug Dosing ml/min Est GFR ( Amer) Est GFR (Non-Af Amer) BUN/Creatinine Ratio (10-20) Glucose (70-99) mg/dl POC Glucose 236 H (70-99) mg/dl Calcium (8.5-10.1) mg/dl Total Bilirubin (0.2-1) mg/dl AST (15-37) U/L ALT (12-78) U/L Alkaline Phosphatase (45-117) U/L Ammonia (11-32) umol/L Total Protein (6.4-8.2) gm/dl Albumin (3.4-5.0) gm/dl Globulin (2.5-4.0) gm/dl Albumin/Globulin Ratio (0.9-2) (1) Closed intertrochanteric fracture of left hip Encounter type: initial encounter Fracture alignment: displaced Qualified Code(s): S72.142A - Displaced intertrochanteric fracture of left femur, initial encounter for closed fracture
[2020-05-21] MEDS: FUROSEMIDE 20 MG TAB PO SCH ×2 (09:34→17:24)
[2020-05-21] MEDS: MAGNESIUM OXIDE 400 MG TAB PO SCH (09:34)
[2020-05-21] MEDS: VENLAFAXINE HCL XR 75 MG CAPXR PO SCH (09:35)
[2020-05-21] MEDS: ASPIRIN 81 MG ECTAB PO SCH (09:36)
[2020-05-21] MEDS: CALCIUM 600MG + VIT D 400 IU TAB PO SCH (09:38)
[2020-05-21] MEDS: DOCUSATE SODIUM 100 MG CAP PO SCH ×2 (09:38→20:04)
[2020-05-21] MEDS: SPIRONOLACTONE 25 MG TAB PO SCH ×2 (09:39→20:03)
[2020-05-21] MEDS: BusPIRone 15 MG TAB PO SCH ×2 (09:39→17:22)
[2020-05-21] MEDS: LIDOCAINE 5% 1 PATCH TD SCH (09:42)
[2020-05-21] MEDS: INSULIN GLARGINE SOLOSTAR 100 UNITS/ML 3 ML PEN SC SCH (09:43)
[2020-05-21] MEDS: INSULIN ASPART 100 UNITS/ML 3 ML PEN SC SCH ×4 (09:44→21:13)
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
[2020-05-21] MEDS: TRAMADOL HCL 50 MG TABLET PO PRN (11:59)
--- NOTE | 2020-05-21 13:22 | Hospitalist Progress Note ---
Date of Service May 21, 2020 Assessment & Plan (1) Closed intertrochanteric fracture of left hip: 79-year-old male with extensive medical past medical history noted transferred via EMS from [facility] for reported fall out of wheelchair seen to have closed left hip fracture on imaging. Likely age-related osteoporotic fracture of the left femur insetting of chair height fall * Hip/Pelvis XR- Intertrochanteric left femoral fracture * Pain management with ANTHONY Tylenol, lidocaine patch, prn IV morphine * Ortho consulted * s/p LEFT ORIF with Dr. Cherry 05/19 Pre-op h/h 11.8/36.4. EBL 200mL * PT/OT/DVT per orthopedics -- patient to have SCDs, Lovenox x 2 week for DVT proph * CM assisting with placement as daughter looking into different facilities * H/h low at 9.3/27.8 -- likely aspect of acute blood loss following surgery as well as IVF * CBC in AM *Patient with multiple falls at [facility] -- complaints of low back pain compared to in the past --> XRAY Lumbar/Thoracic spine ordered * Acute versus subacute T12 burst fracture without retropulsion, new from 03/17/2020 without subluxation or acute fracture of lumbar spine * Ortho spine consulted -- Dr. Burnett recommends TLSO when out of bed and ambulating, no surgery for now Per notes and nursing, very lethargic yesterday. Improving today, awake, alert, oriented, seated in in chair. Ammonia minimally elevated. CT Head without acute findings. Of note, patient with hx small CVA noted on consultation by Dr Madie Madrid in the past. He also had gabapentin decreased recently to the 800mg TID and amantadine discontinued. Held evening trazodone and will continue to hold (2) Hypertension: * Chronic. * Continue home home amlodipine to 7.5mg HS, spironolactone 25 mg BID , hydralazine prn, Lasix 20 mg BID * Continue to monitor (3) Hyperlipidemia: * Chronic. Continue home simvastatin 40mg PO HS (4) CHF (congestive heart failure): * Chronic HFpEF * ECHO March 2020 -- EF 55-60%, normal LVSF, no significant change since April 2019 * Continue home spironolactone, lasix as above * No s/sx overload (5) Type 2 diabetes mellitus: * Chronic. Last A1c 5.7 04/2020 * On glargine, lispro, metformin BID outpatient -- held while inpatient * ISS while inpatient - sugars have been in the 200s so will consult pharmacy for glycemic management * BSG ac/hs (6) Chronic respiratory failure with hypoxia: * with mixed restrictive/obstructive lung disease -- to be on 3.5L O2 via NC outpatient -- per patient he only utilizes this sometimes. Has seen Dr. 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 Continue home Gabapentin 800mg TID (9) Tardive dyskinesia: * Thought to be related to home antipsychotic, on aripiprazole * Follows psych outpatient * Per neurology, his home gabapentin dosing was decreased from QID to TID as above and his home amantadine was discontinued (10) Microscopic hematuria: * On prior discharge, plan was for outpatient cystoscopy with urology. No UA RBCs seen on this admit (11) Anxiety with depression: * Chronic * Continue home buspirone, effexor * Trazodone held this evening to avoid increased lethargy (12) Chronic respiratory failure with hypoxia, on home oxygen therapy: * See above (13) TERI (obstructive sleep apnea): * Has BiPAP but doesn't wear -- utilizes O2 via NC -- continue while inpatient (14) Thrombocytopenia: * Stable * Seen by hematology in 2018, noted thrombocytopenia likely related to Hepatitis C (s/p blood transfusion) * Continue to monitor (15) Chronic viral hepatitis: * Secondary to blood transfusion. (16) Elevated alkaline phosphatase level: * 119 on morning labs -- elevated at 181 on discharge March 2020 * resolved (17) Thoracic compression fracture: * Has had numerous falls at the long term since last admission and complains of back pain * X-rays of thoracic and lumbar spine show a acute to subacute T12 burst fracture without retropulsion * Consulted spine surgery, as above (18) Acute blood loss anemia: Hgb 7.9 today down from 11.8 preop Repeat hgb am (19) Urinary hesitancy: Has been requiring straight catheterization x2 today since Fields pulled. Will replace fields and have patient follow up with urology outpatient if unable to void today. (20) DVT prophylaxis: * SCDs * Lovenox x 2 weeks Daughter is Niyah ([phone]), lives in [place], at bedside today with patient. Admission and Anticipated Discharge Date Admission Date: May 18, 2020 Subjective Mr. Page is feeling better today, up to a chair, daughter at bedside. Daughter feels he's a little slower to speak than his usual but fairly close to baseline. Per nursing, his mental status is much improved from yesterday when he was quite somnolent. ROS Constitutional: no chills, aches, sweats or fever Respiratory: no sob,cough, sputum, or wheezing Cardiac: no chest pain, palpitations, edema, orthopnea or lightheadedness GI: no abdominal pain, nausea, vomiting, diarrhea or constipation : no dysuria or hesitancy Extremities: no joint pain or weakness Skin: no rash All other systems reviewed and negative Physical Exam Physical Exam: General: no distress Eyes: normal inspection, PERLL Respiratory: chest non tender, clear to auscultation, normal breath sounds, no respiratory distress, no accessory muscle use Cardiac: regular rate and rhythm, no rub or gallop, no murmur, no edema, no jvd GI/: active bowel sounds, no abd pain or tenderness, soft, non distended Extremities: normal range of motion, normal strength, non tender Neuro/Psych: alert and oriented x 3, normal mood and affect Skin: normal color, dry Results & Data Results & Data ([facility]) Vital Signs (Past 12 Hours) Vital Signs Temp Pulse Resp BP Pulse Ox 05/21/20 07:48 36.7 C 83 17 120/64 96 PG Care Time/CCT Total # of Minutes Spent Total Time Spent with Patient: Total time spent is greater than 50% in coordination of care (as documented) at patient's floor/unit and/or counseling patient: Coding Level of Care Code 95479 Subseq Hosp Care Lvl 3 Diagnoses Closed intertrochanteric fracture of left hip S72.142A Encounter type: initial encounter Fracture alignment: displaced Hypertension I10 Hyperlipidemia E78.5 CHF (congestive heart failure) I50.9 Heart failure chronicity: unspecified Heart failure type: unspecified Type 2 diabetes mellitus E11.9 Chronic respiratory failure with hypoxia J96.11 Mixed restrictive and obstructive lung disease J43.9; J98.4 Peripheral neuropathy G62.9 Tardive dyskinesia G24.01 Microscopic hematuria R31.29 Anxiety with depression F41.8 Chronic respiratory failure with hypoxia, on home oxygen therapy J96.11; Z99.81 TERI (obstructive sleep apnea) G47.33 Thrombocytopenia D69.6 Chronic viral hepatitis B18.9 Elevated alkaline phosphatase level R74.8 Thoracic compression fracture S22.000A Acute blood loss anemia D62 Urinary hesitancy R39.11 DVT prophylaxis Z29.9 (1) CHF (congestive heart failure) Heart failure chronicity: unspecified Heart failure type: unspecified Qualified Code(s): I50.9 - Heart failure, unspecified (2) Closed intertrochanteric fracture of left hip Encounter type: initial encounter Fracture alignment: displaced Qualified Code(s): S72.142A - Displaced intertrochanteric fracture of left femur, initial encounter for closed fracture
[2020-05-21] MEDS ORDERED: PHARMACY GLYCEMIC MGMT CONSULT PRN (13:52)
--- NOTE | 2020-05-21 14:15 | Pharmacy Report ---
Pharmacy Glycemic Short Note 2 - Date of Service May 21, 2020 - Glycemic Short BSG Results (Last 24 hours): 05/20/20 05/20/20 05/21/20 17:08 20:41 05:45 Glucose 101 H POC Glucose 219 H 280 H 05/21/20 05/21/20 08:21 12:21 Glucose POC Glucose 128 H 204 H OUTPATIENT ANTIDIABETIC REGIMEN: * Basaglar 16 units QPM, Humalog SS, Metformin 500 mg BID * A1c 5.7% 04/17/2020 ASSESSMENT: * Mr. Page is admitted following a left hip fracture, now POD #2 * BSGs ranged from 147-280 in the last 24 hours * Fasting BSGs within goal range, 141, 147, 128 for the past three days- lantus has been dosed as 16 units BID which is a weight based stress of 2, this is double his home regimen of 16 units- will start scale for this evening, may need to start decreasing * Prandial BSGs have been elevated- will tighten correction factor/carb ratio and monitor, will adjust goal range to 110-140 mg/dL will will also provide additional correctional insulin. PLAN FOR INPATIENT GLYCEMIC CONTROL: * Hold outpatient oral diabetes medications * Basal insulin * Lantus 16 units this AM, scale for PM up to 16 units * Bolus insulin * NovoLog per scale ACHS or Q6hrs while NPO * Goal Range: Low 110 mg/dL - High 140 mg/dL * Correction Factor: 20 mg/dL/unit * Nutritional / Prandial insulin per carb ratio of 1 unit per 7 grams CHO consumed
[2020-05-21] MEDS: ENOXAPARIN INJ 40 MG/0.4 ML SYR SQ SCH (15:13)
[2020-05-21] MEDS: TAMSULOSIN HCL 0.4 MG CAP PO SCH (17:22)
[2020-05-21] MEDS: SIMVASTATIN 40 MG TAB PO SCH (20:04)
[2020-05-21] MEDS: AMLODIPINE BESYLATE 5 MG TAB PO SCH (20:04)
[2020-05-21] MEDS: ARIPiprazole 5 MG TAB PO SCH (20:05)
[2020-05-21] MEDS ORDERED: INSULIN GLARGINE SOLOSTAR 100 UNITS/ML 3 ML PEN SC SCH (21:00)
[2020-05-21] MEDS ORDERED: Nursing to Pharmacy Communication SCH (23:15)
[2020-05-22 05:40] LABS: Hemoglobin 7.3 g/dL (14.0-18.0); Mean Corpuscular Hgb Conc 33.2 g/dL (32-36); Mean Corpuscular Volume 90.5 fL (80-100); RDW Coefficient of Variation 13.8 % (11.5-14.5); RDW Standard Deviation 45.9 fL (36.4-46.3); Red Blood Count 2.43 M/uL (4.7-6.1); White Blood Count 4.03 K/uL (4.8-10.8)
[2020-05-22 06:07] LABS: Platelet Count 98 K/uL (130-400)
[2020-05-22] MEDS: TRAMADOL HCL 50 MG TABLET PO PRN ×3 (06:10→23:20)
[2020-05-22 06:14] LABS: Basophils # (auto) 0.01 K/uL (0-0.2); Basophils % (auto) 0.2 %; Eosinophils # (auto) 0.05 K/uL (0-0.5); Eosinophils % (auto) 1.2 %; Immature Granulocytes # (auto) 0.01 K/uL (0.00-0.02); Immature Granulocytes % (auto) 0.2 %; Lymphocytes # (auto) 0.82 K/uL (1.2-3.4); Lymphocytes % (auto) 20.3 %; Monocytes # (auto) 0.34 K/uL (0.11-0.59); Monocytes % (auto) 8.4 %; Neutrophils % (auto) 69.7 %; RBC Morphology Unremarkable
[2020-05-22 06:21] LABS: Albumin Level 2.4 gm/dl (3.4-5.0); BUN Creatinine Ratio 22.8 (10-20); Calcium 8.3 mg/dl (8.5-10.1); Est GFR (African American) 111.6; Est GFR (Non-African American) 96.3; Potassium 3.9 mmol/L (3.5-5.1)
[2020-05-22 06:25] LABS: Albumin Globulin Ratio 0.9 (0.9-2); Bilirubin,Total 0.4 mg/dl (0.2-1); Globulin 2.8 gm/dl (2.5-4.0); Total Protein 5.2 gm/dl (6.4-8.2)
[2020-05-22] MEDS: CHOLECALCIFEROL 1,000 UNITS 25 MCG TAB PO SCH (07:32)
[2020-05-22] MEDS: CALCIUM 600MG + VIT D 400 IU TAB PO SCH (07:32)
[2020-05-22] MEDS: MAGNESIUM OXIDE 400 MG TAB PO SCH (07:32)
[2020-05-22] MEDS: FINASTERIDE 5 MG TAB PO SCH (07:33)
[2020-05-22] MEDS: FUROSEMIDE 20 MG TAB PO SCH ×2 (07:33→16:02)
[2020-05-22] MEDS: VENLAFAXINE HCL XR 75 MG CAPXR PO SCH (07:34)
[2020-05-22] MEDS: ASPIRIN 81 MG ECTAB PO SCH (07:35)
[2020-05-22] MEDS: VITAMIN B COMPLEX TAB PO SCH (07:35)
[2020-05-22] MEDS: SODIUM CHLORIDE 1 GM TABLET PO SCH ×2 (07:36→20:51)
[2020-05-22] MEDS: BusPIRone 15 MG TAB PO SCH ×2 (07:36→16:02)
[2020-05-22] MEDS: DOCUSATE SODIUM 100 MG CAP PO SCH ×2 (07:37→20:52)
[2020-05-22] MEDS: SPIRONOLACTONE 25 MG TAB PO SCH ×2 (07:37→20:51)
[2020-05-22] MEDS: GABAPENTIN 800 MG TAB PO SCH ×3 (07:37→20:51)
[2020-05-22] MEDS: LIDOCAINE 5% 1 PATCH TD SCH (07:38)
[2020-05-22] MEDS: ACETAMINOPHEN 500 MG TAB PO SCH ×3 (07:40→20:51)
[2020-05-22] MEDS: POLYETHYLENE (MIRALAX) 17 GM PACK PO SCH (07:40)
[2020-05-22] MEDS: INSULIN ASPART 100 UNITS/ML 3 ML PEN SC SCH ×4 (09:06→20:57)
--- NOTE | 2020-05-22 10:13 | Orthopedic Progress Note ---
Date of Service May 22, 2020 Assessment & Plan (1) Closed intertrochanteric fracture of left hip: PT/OT WBAT with walker assistance Keep dressing in place Ice with EZ wrap Pain control with PO meds DVT prophy with SCD's and Lovenox 40 mg SQ for 4 weeks Plan on DC to SNF when available. Case Management to do eval. Appreciate medicine service help with this patient Will need 2 wks post op f/u at [facility]. (2) Thoracic compression fracture: Dr. Burnett [facility] [place]. Recommends TLSO brace to be worn when out of bed and ambulating. Admission and Anticipated Discharge Date Admission Date: May 18, 2020 Subjective This 79 yo M is 3 days s/p Left hip ORIF with DHO screw. Patient states that h is hip is fine. States that most of his pain is in his mid back. Patient states that he does not want to go back to his previous SNF because he fell 5x in a matter of 4 weeks. He also states that he feels that he needs to stay in the hospital for several more day to do rehab to improve his function. I advised him that this will be up to the medicine service because orthopedically, in regards to his Left hip, he is progressing well. Patient denies CP, SOB, nausea, vomiting, fever, chills, sweats or lethargy. Review of Systems Review of Systems: All systems reviewed & are unremarkable except as noted in Subjective Physical Exam Physical Exam: Left Hip: Dressing clean, dry and intact. Neg log roll. Minimal pain with very light passive internal/external hip rotation. Able to perform SLRT and can actively dorsi/plantar flex foot and slightly fire his quad. Calf is soft and supple. Periph pulses palpable. Cap refill < 2 seconds. Rt LE: NV intact able to perform SLRT. No dermatomal deficit Back: TTP over distal thoracic vertebral body without palpable deformity. Increased pain when he transitions from the bed to chair and when he works with PT. Results & Data ([facility]) Vital Signs (Past 12 Hours) Vital Signs Temp Pulse Resp BP Pulse Ox 05/22/20 07:58 36.6 C 79 18 124/61 96 05/21/20 22:44 36.9 C 80 16 132/70 98 Laboratory Results 05/22/20 05/22/20 05/22/20 Range/Units 08:15 04:59 04:59 WBC 4.03 L (4.8-10.8) K/uL RBC 2.43 L (4.7-6.1) M/uL Hgb 7.3 L (14.0-18.0) g/dL Hct 22.0 L (42-52) % MCV 90.5 (80-100) fL MCH 30.0 (25-34) pg MCHC 33.2 (32-36) g/dL RDW Std Deviation 45.9 (36.4-46.3) fL RDW Coeff of Ja 13.8 (11.5-14.5) % Plt Count 98 L (130-400) K/uL MPV 11.0 H (7.4-10.4) fL Immature Gran % (Auto) 0.2 % Neut % (Auto) 69.7 % Lymph % (Auto) 20.3 % [place] % (Auto) 8.4 % Eos % (Auto) 1.2 % Baso % (Auto) 0.2 % Neut # (Auto) 2.80 (1.4-6.5) K/uL Lymph # (Auto) 0.82 L (1.2-3.4) K/uL [place] # (Auto) 0.34 (0.11-0.59) K/uL Eos # (Auto) 0.05 (0-0.5) K/uL Baso # (Auto) 0.01 (0-0.2) K/uL Immature Gran # (Auto) 0.01 (0.00-0.02) K/uL RBC Morphology Unremarkable Sodium 139 (136-145) mmol/L Potassium 3.9 (3.5-5.1) mmol/L Chloride 103 (98-107) mmol/L Carbon Dioxide 31 (21-32) mmol/L Anion Gap 5.0 (3-11) BUN 14 (7-18) mg/dl Creatinine 0.59 L (0.6-1.4) mg/dl Est Cr Clr Drug Dosing 118.0 ml/min Est GFR ( Amer) 111.6 Est GFR (Non-Af Amer) 96.3 BUN/Creatinine Ratio 22.8 H (10-20) Glucose 67 L (70-99) mg/dl POC Glucose 105 H (70-99) mg/dl Calcium 8.3 L (8.5-10.1) mg/dl Total Bilirubin 0.4 (0.2-1) mg/dl AST 21 (15-37) U/L ALT 19 (12-78) U/L Alkaline Phosphatase 104 (45-117) U/L Total Protein 5.2 L (6.4-8.2) gm/dl Albumin 2.4 L (3.4-5.0) gm/dl Globulin 2.8 (2.5-4.0) gm/dl Albumin/Globulin Ratio 0.9 (0.9-2) 05/21/20 05/21/20 05/21/20 Range/Units 20:37 17:04 12:21 WBC (4.8-10.8) K/uL RBC (4.7-6.1) M/uL Hgb (14.0-18.0) g/dL Hct (42-52) % MCV (80-100) fL MCH (25-34) pg MCHC (32-36) g/dL RDW Std Deviation (36.4-46.3) fL RDW Coeff of Ja (11.5-14.5) % Plt Count (130-400) K/uL MPV (7.4-10.4) fL Immature Gran % (Auto) % Neut % (Auto) % Lymph % (Auto) % [place] % (Auto) % Eos % (Auto) % Baso % (Auto) % Neut # (Auto) (1.4-6.5) K/uL Lymph # (Auto) (1.2-3.4) K/uL [place] # (Auto) (0.11-0.59) K/uL Eos # (Auto) (0-0.5) K/uL Baso # (Auto) (0-0.2) K/uL Immature Gran # (Auto) (0.00-0.02) K/uL RBC Morphology Sodium (136-145) mmol/L Potassium (3.5-5.1) mmol/L Chloride (98-107) mmol/L Carbon Dioxide (21-32) mmol/L Anion Gap (3-11) BUN (7-18) mg/dl Creatinine (0.6-1.4) mg/dl Est Cr Clr Drug Dosing ml/min Est GFR ( Amer) Est GFR (Non-Af Amer) BUN/Creatinine Ratio (10-20) Glucose (70-99) mg/dl POC Glucose 243 H 139 H 204 H (70-99) mg/dl Calcium (8.5-10.1) mg/dl Total Bilirubin (0.2-1) mg/dl AST (15-37) U/L ALT (12-78) U/L Alkaline Phosphatase (45-117) U/L Total Protein (6.4-8.2) gm/dl Albumin (3.4-5.0) gm/dl Globulin (2.5-4.0) gm/dl Albumin/Globulin Ratio (0.9-2) (1) Closed intertrochanteric fracture of left hip Encounter type: initial encounter Fracture alignment: displaced Qualified Code(s): S72.142A - Displaced intertrochanteric fracture of left femur, initial encounter for closed fracture
--- NOTE | 2020-05-22 11:46 | Orthopedic Progress Note ---
Date of Service May 22, 2020 Assessment & Plan (1) Thoracic compression fracture: At this time we will continue activity as tolerated. He does have a brace to wear when he is ambulating. I suspect he will be uncomfortable for the next several days but in most cases these fractures heal without surgical intervention. He and his daughter understand that if he continues to have pain despite the passage of time we may have to consider kyphoplasty. Present on Admission?: Yes Admission and Anticipated Discharge Date Admission Date: May 18, 2020 Subjective Patient complaining of back pain but is tolerable. Physical Exam Physical Exam: Patient is in the chair at the bedside. He has good strength testing. Appears comfortable. Results & Data ([facility]) Vital Signs (Past 12 Hours) Vital Signs Temp Pulse Resp BP Pulse Ox 05/22/20 07:58 36.6 C 79 18 124/61 96
--- NOTE | 2020-05-22 15:02 | Pharmacy Report ---
Pharmacy Glycemic Short Note 2 - Date of Service May 22, 2020 - Glycemic Short BSG Results (Last 24 hours): 05/21/20 05/21/20 05/22/20 17:04 20:37 04:59 Glucose 67 L POC Glucose 139 H 243 H 05/22/20 05/22/20 08:15 12:30 Glucose POC Glucose 105 H 191 H OUTPATIENT ANTIDIABETIC REGIMEN: * Basaglar 16 units QPM, Humalog SS, Metformin 500 mg BID * A1c 5.7% 04/17/2020 ASSESSMENT: 05/22 * POD #3, BSGs range 128-243 * Fasting BSG 67 on BMP and 105 POC, held AM dose and will move to HS dosing reduced from previous * Carb ratio tightened yesterday afternoon, prandial BSGs seem to be somewhat improved with this change, will continue for now 05/21 * Mr. Page is admitted following a left hip fracture, now POD #2 * BSGs ranged from 147-280 in the last 24 hours * Fasting BSGs within goal range, 141, 147, 128 for the past three days- lantus has been dosed as 16 units BID which is a weight based stress of 2, this is double his home regimen of 16 units- will start scale for this evening, may need to start decreasing * Prandial BSGs have been elevated- will tighten correction factor/carb ratio and monitor, will adjust goal range to 110-140 mg/dL will will also provide additional correctional insulin. PLAN FOR INPATIENT GLYCEMIC CONTROL: * Hold outpatient oral diabetes medications * Basal insulin * Lantus 16 units if BSG <140 mg/dL; 24 units if 140 mg/dL or greater with dinner * Bolus insulin * NovoLog per scale ACHS or Q6hrs while NPO * Goal Range: Low 110 mg/dL - High 140 mg/dL * Correction Factor: 20 mg/dL/unit * Nutritional / Prandial insulin per carb ratio of 1 unit per 7 grams CHO consumed
--- NOTE | 2020-05-22 15:24 | Hospitalist Progress Note ---
Date of Service May 22, 2020 Assessment & Plan (1) Closed intertrochanteric fracture of left hip: 79-year-old male with extensive medical past medical history noted transferred via EMS from [facility] for reported fall out of wheelchair seen to have closed left hip fracture on imaging. Likely age-related osteoporotic fracture of the left femur insetting of chair height fall * Hip/Pelvis XR- Intertrochanteric left femoral fracture * Pain management with ANTHONY Tylenol, lidocaine patch, prn IV morphine * Ortho consulted * s/p LEFT ORIF with Dr. Cherry 05/19 * PT/OT/DVT per orthopedics -- patient to have SCDs, Lovenox x 4 week for DVT proph * CM assisting with placement as daughter looking into different facilities *Patient with multiple falls at [facility] -- complaints of low back pain compared to in the past --> XRAY Lumbar/Thoracic spine ordered * Acute versus subacute T12 burst fracture without retropulsion, new from 03/17/2020 without subluxation or acute fracture of lumbar spine * Ortho spine consulted -- Dr. Burnett recommends TLSO when out of bed and ambulating, no surgery for now Mentation much better today. CT Head without acute findings. Of note, patient with hx small CVA noted on consultation by Dr Madie Madrid in the past. He also had gabapentin decreased recently to the 800mg TID and amantadine discontinued. Continue to hold evening trazadone (2) Hypertension: * Chronic. * Continue home home amlodipine to 7.5mg HS, spironolactone 25 mg BID , hydralazine prn, Lasix 20 mg BID * Continue to monitor (3) Hyperlipidemia: * Chronic. Continue home simvastatin 40mg PO HS (4) CHF (congestive heart failure): * Chronic HFpEF * ECHO March 2020 -- EF 55-60%, normal LVSF, no significant change since April 2019 * Continue home spironolactone, lasix as above * No s/sx overload (5) Type 2 diabetes mellitus: * Chronic. Last A1c 5.7 04/2020 * On glargine, lispro, metformin BID outpatient -- held while inpatient * ISS while inpatient - consult pharmacy for glycemic management * BSG ac/hs (6) Chronic respiratory failure with hypoxia: * with mixed restrictive/obstructive lung disease -- to be on 3.5L O2 via [place] outpatient -- per patient he only utilizes this sometimes. Has seen Dr. 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 Continue home Gabapentin 800mg TID (9) Tardive dyskinesia: * Thought to be related to home antipsychotic, on aripiprazole * Follows psych outpatient * Per neurology, his home gabapentin dosing was decreased from QID to TID as above and his home amantadine was discontinued (10) Microscopic hematuria: * On prior discharge, plan was for outpatient cystoscopy with urology. No UA RBCs seen on this admit (11) Anxiety with depression: * Chronic * Continue home buspirone, effexor * Trazodone held to avoid increased lethargy (12) Chronic respiratory failure with hypoxia, on home oxygen therapy: * See above (13) TERI (obstructive sleep apnea): * Has BiPAP but doesn't wear -- utilizes O2 via [place] -- continue while inpatient (14) Thrombocytopenia: * Stable * Seen by hematology in 2018, noted thrombocytopenia likely related to Hepatitis C (s/p blood transfusion) * Continue to monitor (15) Chronic viral hepatitis: * Secondary to blood transfusion. (16) Elevated alkaline phosphatase level: * elevated at 181 on discharge March 2020 as well * resolved (17) Thoracic compression fracture: * [facility] and complains of back pain * X-rays of thoracic and lumbar spine show a acute to subacute T12 burst fracture without retropulsion * Consulted spine surgery, as above (18) Acute blood loss anemia: Hgb 7.3 today down from 11.8 preop Repeat hgb this afternoon 8.5 Asymptomatic (19) Urinary hesitancy: Resolving, patient able to void today. (20) DVT prophylaxis: * SCDs * Lovenox x 4 weeks Patient to remain overnight to monitor blood loss and mentation. Should be able to discharge tomorrow if placement is organized Admission and Anticipated Discharge Date Admission Date: May 18, 2020 Subjective Mr. Page is feeling better today. Sitting in a chair at bedside at the time of my assessment. No other discomforts. ROS Constitutional: no chills, aches, sweats or fever Respiratory: no sob,cough, sputum, or wheezing Cardiac: no chest pain, palpitations, edema, orthopnea or lightheadedness GI: no abdominal pain, nausea, vomiting, diarrhea or constipation : no dysuria or hesitancy Extremities: no joint pain or weakness Skin: no rash All other systems reviewed and negative Physical Exam Physical Exam: General: no distress Eyes: normal inspection, PERLL Respiratory: chest non tender, clear to auscultation, normal breath sounds, no respiratory distress, no accessory muscle use Cardiac: regular rate and rhythm, no rub or gallop, no murmur, no edema, no jvd GI/: active bowel sounds, no abd pain or tenderness, soft, non distended Extremities: normal range of motion, normal strength, non tender Neuro/Psych: alert and oriented x 3, normal mood and affect Skin: normal color, dry Results & Data Results & Data ([facility]) Vital Signs (Past 12 Hours) Vital Signs Temp Pulse Resp BP Pulse Ox 05/22/20 07:58 36.6 C 79 18 124/61 96 PG Care Time/CCT Total # of Minutes Spent Total Time Spent with Patient: Total time spent is greater than 50% in coordination of care (as documented) at patient's floor/unit and/or counseling patient: Coding Level of Care Code 59083 Subseq Hosp Care Lvl 3 Diagnoses Closed intertrochanteric fracture of left hip S72.142A Encounter type: initial encounter Fracture alignment: displaced Hypertension I10 Hyperlipidemia E78.5 CHF (congestive heart failure) I50.9 Heart failure chronicity: unspecified Heart failure type: unspecified Type 2 diabetes mellitus E11.9 Chronic respiratory failure with hypoxia J96.11 Mixed restrictive and obstructive lung disease J43.9; J98.4 Peripheral neuropathy G62.9 Tardive dyskinesia G24.01 Microscopic hematuria R31.29 Anxiety with depression F41.8 Chronic respiratory failure with hypoxia, on home oxygen therapy J96.11; Z99.81 TERI (obstructive sleep apnea) G47.33 Thrombocytopenia D69.6 Chronic viral hepatitis B18.9 Elevated alkaline phosphatase level R74.8 Thoracic compression fracture S22.000A Acute blood loss anemia D62 Urinary hesitancy R39.11 DVT prophylaxis Z29.9 (1) Closed intertrochanteric fracture of left hip Encounter type: initial encounter Fracture alignment: displaced Qualified Code(s): S72.142A - Displaced intertrochanteric fracture of left femur, initial encounter for closed fracture (2) CHF (congestive heart failure) Heart failure chronicity: unspecified Heart failure type: unspecified Qualified Code(s): I50.9 - Heart failure, unspecified
[2020-05-22] MEDS: ENOXAPARIN INJ 40 MG/0.4 ML SYR SQ SCH (16:00)
[2020-05-22] MEDS: TAMSULOSIN HCL 0.4 MG CAP PO SCH (16:02)
[2020-05-22] MEDS ORDERED: INSULIN GLARGINE SOLOSTAR 100 UNITS/ML 3 ML PEN SC ONE (16:30)
[2020-05-22] MEDS: SIMVASTATIN 40 MG TAB PO SCH (20:51)
[2020-05-22] MEDS: AMLODIPINE BESYLATE 5 MG TAB PO SCH (20:51)
[2020-05-22] MEDS: ARIPiprazole 5 MG TAB PO SCH (20:52)
[2020-05-23 06:12] LABS: Basophils # (auto) 0.01 K/uL (0-0.2); Basophils % (auto) 0.3 %; Eosinophils # (auto) 0.07 K/uL (0-0.5); Eosinophils % (auto) 1.8 %; Hematocrit (blood only) 22.9 % (42-52); Hemoglobin 7.6 g/dL (14.0-18.0); Immature Granulocytes # (auto) 0.01 K/uL (0.00-0.02); Immature Granulocytes % (auto) 0.3 %; Lymphocytes # (auto) 0.89 K/uL (1.2-3.4); Lymphocytes % (auto) 22.9 %; Mean Corpuscular Hgb Conc 33.2 g/dL (32-36); Mean Corpuscular Volume 90.5 fL (80-100); Mean Platelet Volume 10.6 fL (7.4-10.4); Monocytes # (auto) 0.26 K/uL (0.11-0.59); Monocytes % (auto) 6.7 %; Neutrophils # (auto) 2.64 K/uL (1.4-6.5); Platelet Count 102 K/uL (130-400); RDW Standard Deviation 45.9 fL (36.4-46.3); Red Blood Count 2.53 M/uL (4.7-6.1); White Blood Count 3.88 K/uL (4.8-10.8)
[2020-05-23 06:44] LABS: Albumin Level 2.6 gm/dl (3.4-5.0); BUN Creatinine Ratio 14.9 (10-20); Calcium 8.8 mg/dl (8.5-10.1); Creatinine Clr Calc Pharmacy 102.4 ml/min; Est GFR (African American) 105.3; Est GFR (Non-African American) 90.8; Potassium 3.8 mmol/L (3.5-5.1)
[2020-05-23 06:47] LABS: Albumin Globulin Ratio 0.9 (0.9-2); Bilirubin,Total 0.5 mg/dl (0.2-1); Total Protein 5.6 gm/dl (6.4-8.2)
[2020-05-23 06:48] LABS: RBC Morphology Unremarkable
--- NOTE | 2020-05-23 09:30 | Orthopedic Progress Note ---
Date of Service May 23, 2020 Assessment & Plan (1) Closed intertrochanteric fracture of left hip: Continue PT/OT WBAT with walker assistance Keep dressing in place Ice with EZ wrap Pain control with PO meds DVT prophy with SCD's inhouse, Teds and Lovenox 40 mg SQ for 4 weeks Plan on DC to SNF when available. Case Management following. Appreciate medicine service help with this patient Will need 2 wks post op f/u at [facility]. (2) Thoracic compression fracture: Dr. Burnett [facility] spine service consulted. Recommends TLSO brace to be worn when out of bed and ambulating. Admission and Anticipated Discharge Date Admission Date: May 18, 2020 Subjective Patient sitting in chair. PT in room. Says he is doing "ok". Thoracic compression fx is more bothersome for him than hip at this point. Fitted with back brace. Physical Exam Physical Exam: Left hip incision and dressing C/D/I. 4xs and tegaderm. No significant redness or bruising or swelling. Painless gentle log rolling. B LE with knee high teds. B LE NV intact. Able to wiggle ankles and toes. Palpable DP and PT pulses. B calves are soft and nontender. Patients back brace was rubbing into his neck. He was min-mod A with therapist with cues sit to stand with walker. Brace was then adjusted. Results & Data ([facility]) Vital Signs (Past 12 Hours) Vital Signs Temp Pulse Resp BP BP Pulse Ox 05/23/20 07:08 37.1 C 90 18 156/66 H 91 05/22/20 22:32 37.1 C 79 16 123/66 97 Laboratory Results 05/23/20 05/23/20 05/23/20 Range/Units 08:07 05:47 05:47 WBC 3.88 L (4.8-10.8) K/uL RBC 2.53 L (4.7-6.1) M/uL Hgb 7.6 L (14.0-18.0) g/dL Hct 22.9 L (42-52) % MCV 90.5 (80-100) fL MCH 30.0 (25-34) pg MCHC 33.2 (32-36) g/dL RDW Std Deviation 45.9 (36.4-46.3) fL RDW Coeff of Ja 14.0 (11.5-14.5) % Plt Count 102 L (130-400) K/uL MPV 10.6 H (7.4-10.4) fL Immature Gran % (Auto) 0.3 % Neut % (Auto) 68.0 % Lymph % (Auto) 22.9 % [facility] % (Auto) 6.7 % Eos % (Auto) 1.8 % Baso % (Auto) 0.3 % Neut # (Auto) 2.64 (1.4-6.5) K/uL Lymph # (Auto) 0.89 L (1.2-3.4) K/uL [facility] # (Auto) 0.26 (0.11-0.59) K/uL Eos # (Auto) 0.07 (0-0.5) K/uL Baso # (Auto) 0.01 (0-0.2) K/uL Immature Gran # (Auto) 0.01 (0.00-0.02) K/uL RBC Morphology Unremarkable Sodium 137 (136-145) mmol/L Potassium 3.8 (3.5-5.1) mmol/L Chloride 102 (98-107) mmol/L Carbon Dioxide 31 (21-32) mmol/L Anion Gap 5.0 (3-11) BUN 10 (7-18) mg/dl Creatinine 0.68 (0.6-1.4) mg/dl Est Cr Clr Drug Dosing 102.4 ml/min Est GFR ( Amer) 105.3 Est GFR (Non-Af Amer) 90.8 BUN/Creatinine Ratio 14.9 (10-20) Glucose 81 (70-99) mg/dl POC Glucose 123 H (70-99) mg/dl Calcium 8.8 (8.5-10.1) mg/dl Total Bilirubin 0.5 (0.2-1) mg/dl AST 25 (15-37) U/L ALT 22 (12-78) U/L Alkaline Phosphatase 119 H (45-117) U/L Total Protein 5.6 L (6.4-8.2) gm/dl Albumin 2.6 L (3.4-5.0) gm/dl Globulin 3.0 (2.5-4.0) gm/dl Albumin/Globulin Ratio 0.9 (0.9-2) 07/07/20 07/07/20 07/07/20 Range/Units 20:37 17:08 14:15 WBC (4.8-10.8) K/uL RBC (4.7-6.1) M/uL Hgb 8.5 L (14.0-18.0) g/dL Hct (42-52) % MCV (80-100) fL MCH (25-34) pg MCHC (32-36) g/dL RDW Std Deviation (36.4-46.3) fL RDW Coeff of Ja (11.5-14.5) % Plt Count (130-400) K/uL MPV (7.4-10.4) fL Immature Gran % (Auto) % Neut % (Auto) % Lymph % (Auto) % [facility] % (Auto) % Eos % (Auto) % Baso % (Auto) % Neut # (Auto) (1.4-6.5) K/uL Lymph # (Auto) (1.2-3.4) K/uL [facility] # (Auto) (0.11-0.59) K/uL Eos # (Auto) (0-0.5) K/uL Baso # (Auto) (0-0.2) K/uL Immature Gran # (Auto) (0.00-0.02) K/uL RBC Morphology Sodium (136-145) mmol/L Potassium (3.5-5.1) mmol/L Chloride (98-107) mmol/L Carbon Dioxide (21-32) mmol/L Anion Gap (3-11) BUN (7-18) mg/dl Creatinine (0.6-1.4) mg/dl Est Cr Clr Drug Dosing ml/min Est GFR ( Amer) Est GFR (Non-Af Amer) BUN/Creatinine Ratio (10-20) Glucose (70-99) mg/dl POC Glucose 177 H 189 H (70-99) mg/dl Calcium (8.5-10.1) mg/dl Total Bilirubin (0.2-1) mg/dl AST (15-37) U/L ALT (12-78) U/L Alkaline Phosphatase (45-117) U/L Total Protein (6.4-8.2) gm/dl Albumin (3.4-5.0) gm/dl Globulin (2.5-4.0) gm/dl Albumin/Globulin Ratio (0.9-2) 07// Range/Units 12:30 WBC (4.8-10.8) K/uL RBC (4.7-6.1) M/uL Hgb (14.0-18.0) g/dL Hct (42-52) % MCV (80-100) fL MCH (25-34) pg MCHC (32-36) g/dL RDW Std Deviation (36.4-46.3) fL RDW Coeff of Ja (11.5-14.5) % Plt Count (130-400) K/uL MPV (7.4-10.4) fL Immature Gran % (Auto) % Neut % (Auto) % Lymph % (Auto) % [facility] % (Auto) % Eos % (Auto) % Baso % (Auto) % Neut # (Auto) (1.4-6.5) K/uL Lymph # (Auto) (1.2-3.4) K/uL [facility] # (Auto) (0.11-0.59) K/uL Eos # (Auto) (0-0.5) K/uL Baso # (Auto) (0-0.2) K/uL Immature Gran # (Auto) (0.00-0.02) K/uL RBC Morphology Sodium (136-145) mmol/L Potassium (3.5-5.1) mmol/L Chloride (98-107) mmol/L Carbon Dioxide (21-32) mmol/L Anion Gap (3-11) BUN (7-18) mg/dl Creatinine (0.6-1.4) mg/dl Est Cr Clr Drug Dosing ml/min Est GFR ( Amer) Est GFR (Non-Af Amer) BUN/Creatinine Ratio (10-20) Glucose (70-99) mg/dl POC Glucose 191 H (70-99) mg/dl Calcium (8.5-10.1) mg/dl Total Bilirubin (0.2-1) mg/dl AST (15-37) U/L ALT (12-78) U/L Alkaline Phosphatase (45-117) U/L Total Protein (6.4-8.2) gm/dl Albumin (3.4-5.0) gm/dl Globulin (2.5-4.0) gm/dl Albumin/Globulin Ratio (0.9-2) (1) Closed intertrochanteric fracture of left hip Encounter type: initial encounter Fracture alignment: displaced Qualified Code(s): S72.142A - Displaced intertrochanteric fracture of left femur, initial encounter for closed fracture
[2020-05-23] MEDS: INSULIN ASPART 100 UNITS/ML 3 ML PEN SC SCH ×4 (09:34→21:19)
[2020-05-23] MEDS: TRAMADOL HCL 50 MG TABLET PO PRN (09:46)
[2020-05-23] MEDS: CALCIUM 600MG + VIT D 400 IU TAB PO SCH (09:48)
[2020-05-23] MEDS: MAGNESIUM OXIDE 400 MG TAB PO SCH (09:48)
[2020-05-23] MEDS: ASPIRIN 81 MG ECTAB PO SCH (09:48)
[2020-05-23] MEDS: BusPIRone 15 MG TAB PO SCH ×2 (09:48→16:01)
[2020-05-23] MEDS: CHOLECALCIFEROL 1,000 UNITS 25 MCG TAB PO SCH (09:48)
[2020-05-23] MEDS: VITAMIN B COMPLEX TAB PO SCH (09:48)
[2020-05-23] MEDS: VENLAFAXINE HCL XR 75 MG CAPXR PO SCH (09:49)
[2020-05-23] MEDS: FUROSEMIDE 20 MG TAB PO SCH ×2 (09:49→16:01)
[2020-05-23] MEDS: SODIUM CHLORIDE 1 GM TABLET PO SCH ×2 (09:49→21:22)
[2020-05-23] MEDS: FINASTERIDE 5 MG TAB PO SCH (09:49)
[2020-05-23] MEDS: ACETAMINOPHEN 500 MG TAB PO SCH ×3 (09:49→21:22)
[2020-05-23] MEDS: GABAPENTIN 800 MG TAB PO SCH ×3 (09:50→21:21)
[2020-05-23] MEDS: SPIRONOLACTONE 25 MG TAB PO SCH ×2 (09:50→21:21)
[2020-05-23] MEDS: POLYETHYLENE (MIRALAX) 17 GM PACK PO SCH (09:50)
[2020-05-23] MEDS: DOCUSATE SODIUM 100 MG CAP PO SCH ×2 (09:50→21:21)
[2020-05-23] MEDS: LIDOCAINE 5% 1 PATCH TD SCH (09:51)
[2020-05-23] MEDS: ENOXAPARIN INJ 40 MG/0.4 ML SYR SQ SCH (14:48)
[2020-05-23] MEDS: TAMSULOSIN HCL 0.4 MG CAP PO SCH (16:01)
--- NOTE | 2020-05-23 17:37 | Hospitalist Progress Note ---
Date of Service May 23, 2020 Assessment & Plan (1) Closed intertrochanteric fracture of left hip: 79-year-old male with extensive medical past medical history noted transferred via EMS from [facility] for reported fall out of wheelchair seen to have closed left hip fracture on imaging. Likely age-related osteoporotic fracture of the left femur insetting of chair height fall * Hip/Pelvis XR- Intertrochanteric left femoral fracture * Pain management with ANTHONY Tylenol, lidocaine patch, prn IV morphine * Ortho consulted * s/p LEFT ORIF with Dr. Cherry 05/19 * PT/OT/DVT per orthopedics -- patient to have SCDs, Lovenox x 4 week for DVT proph * CM assisting with placement as daughter looking into different facilities *Patient with multiple falls at [facility] -- complaints of low back pain compared to in the past --> XRAY Lumbar/Thoracic spine ordered * Acute versus subacute T12 burst fracture without retropulsion, new from 03/17/2020 without subluxation or acute fracture of lumbar spine * Ortho spine consulted -- Dr. Burnett recommends TLSO when out of bed and ambulating, no surgery for now Mentation improved from admission CT Head without acute findings. Of note, patient with hx small CVA noted on consultation by Dr Madie Madrid in the past. He also had gabapentin decreased recent ly to the 800mg TID and amantadine discontinued. Continue to hold evening trazadone (2) Hypertension: * Chronic. * Continue home home amlodipine to 7.5mg HS, spironolactone 25 mg BID , hydralazine prn, Lasix 20 mg BID * Continue to monitor (3) Hyperlipidemia: * Chronic. Continue home simvastatin 40mg PO HS (4) CHF (congestive heart failure): * Chronic HFpEF * ECHO March 2020 -- EF 55-60%, normal LVSF, no significant change since April 2019 * Continue home spironolactone, lasix as above * No s/sx overload (5) Type 2 diabetes mellitus: * Chronic. Last A1c 5.7 04/2020 * On glargine, lispro, metformin BID outpatient -- held while inpatient * ISS while inpatient - consult pharmacy for glycemic management * BSG ac/hs (6) Chronic respiratory failure with hypoxia: * with mixed restrictive/obstructive lung disease -- to be on 3.5L O2 via [place] outpatient -- per patient he only utilizes this sometimes. Has seen Dr. 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 Continue home Gabapentin 800mg TID (9) Tardive dyskinesia: * Thought to be related to home antipsychotic, on aripiprazole * Follows psych outpatient * Per neurology, his home gabapentin dosing was decreased from QID to TID as above and his home amantadine was discontinued (10) Microscopic hematuria: * On prior discharge, plan was for outpatient cystoscopy with urology. No UA RBCs seen on this admit (11) Anxiety with depression: * Chronic * Continue home buspirone, effexor * Trazodone held to avoid increased lethargy (12) Chronic respiratory failure with hypoxia, on home oxygen therapy: * See above (13) TERI (obstructive sleep apnea): * Has BiPAP but doesn't wear -- utilizes O2 via [place] -- continue while inpatient (14) Thrombocytopenia: * Stable * Seen by hematology in 2018, noted thrombocytopenia likely related to Hepatitis C (s/p blood transfusion) * Continue to monitor (15) Chronic viral hepatitis: * Secondary to blood transfusion. (16) Elevated alkaline phosphatase level: * elevated at 181 on discharge March 2020 as well * resolved (17) Thoracic compression fracture: * Has had numerous falls at the group home since last admission and complains of back pain * X-rays of thoracic and lumbar spine show a acute to subacute T12 burst fracture without retropulsion * Consulted spine surgery, as above (18) Acute blood loss anemia: Hgb 7.6 today down from 11.8 preop Stable (19) Urinary hesitancy: Resolved, patient able to void (20) DVT prophylaxis: * SCDs * Lovenox x 4 weeks Admission and Anticipated Discharge Date Admission Date: May 18, 2020 Subjective Mr. Page is feeling good today, no complaints ROS Constitutional: no chills, aches, sweats or fever Respiratory: no sob,cough, sputum, or wheezing Cardiac: no chest pain, palpitations, edema, orthopnea or lightheadedness GI: no abdominal pain, nausea, vomiting, diarrhea or constipation : no dysuria or hesitancy Extremities: no joint pain or weakness Skin: no rash All other systems reviewed and negative Physical Exam Physical Exam: General: no distress Eyes: normal inspection, PERLL Respiratory: chest non tender, clear to auscultation, normal breath sounds, no respiratory distress, no accessory muscle use Cardiac: regular rate and rhythm, no rub or gallop, no murmur, no edema, no jvd GI/: active bowel sounds, no abd pain or tenderness, soft, non distended Extremities: normal range of motion, normal strength, non tender Neuro/Psych: alert and oriented x 3, normal mood and affect Skin: normal color, dry Results & Data Results & Data ([facility]) Vital Signs (Past 12 Hours) Vital Signs Temp Pulse Resp BP BP Pulse Ox 05/23/20 15:06 37.1 C 84 18 126/62 94 05/23/20 07:08 37.1 C 90 18 156/66 H 91 PG Care Time/CCT Total # of Minutes Spent Total Time Spent with Patient: Total time spent is greater than 50% in coordination of care (as documented) at patient's floor/unit and/or counseling patient: Coding Level of Care Code 48924 Subseq Hosp Care Lvl 2 Diagnoses Closed intertrochanteric fracture of left hip S72.142A Encounter type: initial encounter Fracture alignment: displaced Hypertension I10 Hyperlipidemia E78.5 CHF (congestive heart failure) I50.9 Heart failure chronicity: unspecified Heart failure type: unspecified Type 2 diabetes mellitus E11.9 Chronic respiratory failure with hypoxia J96.11 Mixed restrictive and obstructive lung disease J43.9; J98.4 Peripheral neuropathy G62.9 Tardive dyskinesia G24.01 Microscopic hematuria R31.29 Anxiety with depression F41.8 Chronic respiratory failure with hypoxia, on home oxygen therapy J96.11; Z99.81 TERI (obstructive sleep apnea) G47.33 Thrombocytopenia D69.6 Chronic viral hepatitis B18.9 Elevated alkaline phosphatase level R74.8 Thoracic compression fracture S22.000A Acute blood loss anemia D62 Urinary hesitancy R39.11 DVT prophylaxis Z29.9 (1) Closed intertrochanteric fracture of left hip Encounter type: initial encounter Fracture alignment: displaced Qualified Code(s): S72.142A - Displaced intertrochanteric fracture of left femur, initial encounter for closed fracture (2) CHF (congestive heart failure) Heart failure chronicity: unspecified Heart failure type: unspecified Qualified Code(s): I50.9 - Heart failure, unspecified
[2020-05-23] MEDS: INSULIN GLARGINE SOLOSTAR 100 UNITS/ML 3 ML PEN SC SCH (21:19)
[2020-05-23] MEDS: AMLODIPINE BESYLATE 5 MG TAB PO SCH (21:20)
[2020-05-23] MEDS: ARIPiprazole 5 MG TAB PO SCH (21:20)
[2020-05-23] MEDS: SIMVASTATIN 40 MG TAB PO SCH (21:21)
[2020-05-24 06:24] LABS: Basophils # (auto) 0.02 K/uL (0-0.2); Basophils % (auto) 0.4 %; Eosinophils # (auto) 0.04 K/uL (0-0.5); Eosinophils % (auto) 0.9 %; Hematocrit (blood only) 24.1 % (42-52); Immature Granulocytes # (auto) 0.01 K/uL (0.00-0.02); Immature Granulocytes % (auto) 0.2 %; Lymphocytes # (auto) 0.94 K/uL (1.2-3.4); Lymphocytes % (auto) 20.3 %; Mean Corpuscular Hemoglobin 30.3 pg (25-34); Mean Corpuscular Hgb Conc 33.2 g/dL (32-36); Mean Corpuscular Volume 91.3 fL (80-100); Mean Platelet Volume 10.7 fL (7.4-10.4); Monocytes # (auto) 0.38 K/uL (0.11-0.59); Monocytes % (auto) 8.2 %; Neutrophils # (auto) 3.25 K/uL (1.4-6.5); Platelet Count 128 K/uL (130-400); RDW Coefficient of Variation 14.4 % (11.5-14.5); RDW Standard Deviation 47.8 fL (36.4-46.3); Red Blood Count 2.64 M/uL (4.7-6.1); White Blood Count 4.64 K/uL (4.8-10.8)
[2020-05-24] MEDS: TRAMADOL HCL 50 MG TABLET PO PRN (08:03)
[2020-05-24] MEDS: INSULIN ASPART 100 UNITS/ML 3 ML PEN SC SCH ×4 (09:23→21:05)
[2020-05-24] MEDS: ACETAMINOPHEN 500 MG TAB PO SCH ×3 (09:25→21:06)
[2020-05-24] MEDS: SPIRONOLACTONE 25 MG TAB PO SCH ×2 (09:26→21:03)
[2020-05-24] MEDS: VITAMIN B COMPLEX TAB PO SCH (09:26)
[2020-05-24] MEDS: SODIUM CHLORIDE 1 GM TABLET PO SCH ×2 (09:26→21:02)
[2020-05-24] MEDS: CALCIUM 600MG + VIT D 400 IU TAB PO SCH (09:26)
[2020-05-24] MEDS: MAGNESIUM OXIDE 400 MG TAB PO SCH (09:26)
[2020-05-24] MEDS: GABAPENTIN 800 MG TAB PO SCH ×3 (09:26→21:05)
[2020-05-24] MEDS: CHOLECALCIFEROL 1,000 UNITS 25 MCG TAB PO SCH (09:27)
[2020-05-24] MEDS: BusPIRone 15 MG TAB PO SCH ×2 (09:27→15:47)
[2020-05-24] MEDS: ASPIRIN 81 MG ECTAB PO SCH (09:27)
[2020-05-24] MEDS: FUROSEMIDE 20 MG TAB PO SCH ×2 (09:27→17:51)
[2020-05-24] MEDS: VENLAFAXINE HCL XR 75 MG CAPXR PO SCH (09:27)
[2020-05-24] MEDS: DOCUSATE SODIUM 100 MG CAP PO SCH ×2 (09:28→21:03)
[2020-05-24] MEDS: POLYETHYLENE (MIRALAX) 17 GM PACK PO SCH (09:28)
[2020-05-24] MEDS: LIDOCAINE 5% 1 PATCH TD SCH (09:28)
[2020-05-24] MEDS: FINASTERIDE 5 MG TAB PO SCH (09:28)
[2020-05-24] MEDS: MoRPHine SULFATE 2 MG/ML CARP IV PRN (11:06)
--- NOTE | 2020-05-24 11:29 | Pharmacy Report ---
Pharmacy Glycemic Short Note 2 - Date of Service May 24, 2020 - Glycemic Short BSG Results (Last 24 hours): 05/23/20 05/23/20 05/23/20 12:06 17:11 20:46 POC Glucose 159 H 145 H 209 H 05/24/20 07:57 POC Glucose 118 H OUTPATIENT ANTIDIABETIC REGIMEN: * Basaglar 16 units QPM, Humalog SS, Metformin 500 mg BID * A1c 5.7% 04/17/2020 ASSESSMENT: 05/24 * Patient received total of 50 units of insulin yesterday, of which 24 were basal insulin * Fasting BSG 118 mg/dL and is w/in range - continue same basal insulin * Continue same CF/CR PLAN FOR INPATIENT GLYCEMIC CONTROL: * Hold outpatient oral diabetes medications * Basal insulin * Lantus 24 units Qpm * Bolus insulin * NovoLog per scale ACHS or Q6hrs while NPO * Goal Range: Low 110 mg/dL - High 140 mg/dL * Correction Factor: 20 mg/dL/unit * Nutritional / Prandial insulin per carb ratio of 1 unit per 7 grams CHO consumed PLAN FOR DISCHARGE: * A1C of 5.7 indicates excellent glycemic control outpatient - however based upon age/comorbidities would recommend less stringent A1C goal <7% * Would recommend continuation of home diabetic medications post discharge. Would ensure patient not having any low BSGs at home prior to continuation of home regimen.
[2020-05-24] MEDS: ENOXAPARIN INJ 40 MG/0.4 ML SYR SQ SCH (14:08)
--- NOTE | 2020-05-24 14:47 | XRay Report ---
LEFT HIP 2 VIEWS CLINICAL HISTORY: Postoperative left hip pain. FINDINGS: AP and crosstable lateral portable views of the left hip are compared to study dated 05/19/20 20 and 05/18/2020. The skeletal structures are osteopenic. Again seen are postoperative changes from op en reduction and internal fixation of an intertrochanteric left hip fracture. A dynamic compression s crew is in place with a buttress plate along the lateral femoral cortex. Near-anatomic alignment is m aintained. Residual fracture lucency is noted in the greater and lesser trochanters. No new fracture is identified. The visualized left hemipelvis appears intact. Skin clips and soft tissue edema are ex pected postoperative findings. IMPRESSION: 1. There has been no significant change from 05/19/2020. 2. Again seen are postoperative findings from open reduction and internal fixation of a left hip frac ture as above. Electronically signed by: Darin Mcarthur M.D. 05/24/2020 2:45 PM
[2020-05-24] MEDS: TAMSULOSIN HCL 0.4 MG CAP PO SCH (15:47)
--- NOTE | 2020-05-24 16:02 | Hospitalist Progress Note ---
Date of Service May 24, 2020 Assessment & Plan (1) Closed intertrochanteric fracture of left hip: 79-year-old male with extensive medical past medical history noted transferred via EMS from [facility] for reported fall out of wheelchair seen to have closed left hip fracture on imaging. Likely age-related osteoporotic fracture of the left femur insetting of chair height fall * Hip/Pelvis XR- Intertrochanteric left femoral fracture * Pain management with ANTHONY Tylenol, lidocaine patch, prn IV morphine * Ortho consulted * s/p LEFT ORIF with Dr. Cherry 05/19 * PT/OT/DVT per orthopedics -- patient to have SCDs, Lovenox x 4 week for DVT proph * CM assisting with placement as daughter looking into different facilities *Patient with multiple falls at [facility] -- complaints of low back pain compared to in the past --> XRAY Lumbar/Thoracic spine ordered * Acute versus subacute T12 burst fracture without retropulsion, new from 03/17/2020 without subluxation or acute fracture of lumbar spine * Ortho spine consulted -- Dr. Burnett recommends TLSO when out of bed and ambulating, no surgery for now Mentation improved from admission CT Head without acute findings. Of note, patient with hx small CVA noted on consultation by Dr Madie Madrid in the past. He also had gabapentin decreased recent ly to the 800mg TID and amantadine discontinued. Continue to hold evening trazadone Severe pain today - ortho aware, Xray without changes to surgical site. (2) Hypertension: * Chronic. * Continue home home amlodipine to 7.5mg HS, spironolactone 25 mg BID , hydralazine prn, Lasix 20 mg BID * Continue to monitor (3) Hyperlipidemia: * Chronic. Continue home simvastatin 40mg PO HS (4) CHF (congestive heart failure): * Chronic HFpEF * ECHO March 2020 -- EF 55-60%, normal LVSF, no significant change since April 2019 * Continue home spironolactone, lasix as above * No s/sx overload (5) Type 2 diabetes mellitus: * Chronic. Last A1c 5.7 04/2020 * On glargine, lispro, metformin BID outpatient -- held while inpatient * ISS while inpatient - consult pharmacy for glycemic management * BSG ac/hs (6) Chronic respiratory failure with hypoxia: * with mixed restrictive/obstructive lung disease -- to be on 3.5L O2 via [place] outpatient -- per patient he only utilizes this sometimes. Has seen Dr. 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 Continue home Gabapentin 800mg TID (9) Tardive dyskinesia: * Thought to be related to home antipsychotic, on aripiprazole * Follows psych outpatient * Per neurology, his home gabapentin dosing was decreased from QID to TID as above and his home amantadine was discontinued (10) Microscopic hematuria: * On prior discharge, plan was for outpatient cystoscopy with urology. No UA RBCs seen on this admit (11) Anxiety with depression: * Chronic * Continue home buspirone, effexor * Trazodone held to avoid increased lethargy (12) Chronic respiratory failure with hypoxia, on home oxygen therapy: * See above (13) TERI (obstructive sleep apnea): * Has BiPAP but doesn't wear -- utilizes O2 via [place] -- continue while inpa tient (14) Thrombocytopenia: * Stable * Seen by hematology in 2018, noted thrombocytopenia likely related to Hepatitis C (s/p blood transfusion) * Continue to monitor (15) Chronic viral hepatitis: * Secondary to blood transfusion. (16) Elevated alkaline phosphatase level: * elevated at 181 on discharge March 2020 as well * resolved (17) Thoracic compression fracture: * Has had numerous falls at the [facility] since [facility] admission and complains of back pain * X-rays of thoracic and lumbar spine show a acute to subacute T12 burst fracture without retropulsion * Consulted spine surgery, as above (18) Acute blood loss anemia: Hgb stable around 8 down from 11.8 preop Stable (19) Urinary hesitancy: Resolved, patient able to void (20) DVT prophylaxis: * SCDs * Lovenox x 4 weeks Admission and Anticipated Discharge Date Admission Date: May 18, 2020 Subjective Mr. Page is having 10/10 pain at his surgical site following ambulating to the bathroom this morning. ROS Constitutional: no chills, aches, sweats or fever Respiratory: no sob,cough, sputum, or wheezing Cardiac: no chest pain, palpitations, edema, orthopnea or lightheadedness GI: no abdominal pain, nausea, vomiting, diarrhea or constipation : no dysuria or hesitancy Extremities: no joint pain or weakness Skin: no rash All other systems reviewed and negative Physical Exam Physical Exam: General: no distress Eyes: normal inspection, PERLL Respiratory: chest non tender, clear to auscultation, normal breath sounds, no respiratory distress, no accessory muscle use Cardiac: regular rate and rhythm, no rub or gallop, no murmur, no edema, no jvd GI/: active bowel sounds, no abd pain or tenderness, soft, non distended Extremities: normal range of motion, normal strength, non tender Neuro/Psych: alert and oriented x 3, normal mood and affect Skin: normal color, dry Results & Data Results & Data ([facility]) Vital Signs (Past 12 Hours) Vital Signs Temp Pulse Resp BP Pulse Ox Pulse Ox 05/24/20 15:56 37 C 90 18 135/66 94 05/24/20 07:13 37.2 C 88 18 159/74 H 95 05/24/20 06:23 37.0 C 87 16 159/71 H 93 05/24/20 05:17 97 PG Care Time/CCT Total # of Minutes Spent Total Time Spent with Patient: Total time spent is greater than 50% in coordination of care (as documented) at patient's floor/unit and/or counseling patient: Coding Level of Care Code 58323 Subseq Hosp Care Lvl 2 Diagnoses Closed intertrochanteric fracture of left hip S72.142A Encounter type: initial encounter Fracture alignment: displaced Hypertension I10 Hyperlipidemia E78.5 CHF (congestive heart failure) I50.9 Heart failure chronicity: unspecified Heart failure type: unspecified Type 2 diabetes mellitus E11.9 Chronic respiratory failure with hypoxia J96.11 Mixed restrictive and obstructive lung disease J43.9; J98.4 Peripheral neuropathy G62.9 Tardive dyskinesia G24.01 Microscopic hematuria R31.29 Anxiety with depression F41.8 Chronic respiratory failure with hypoxia, on home oxygen therapy J96.11; Z99.81 TERI (obstructive sleep apnea) G47.33 Thrombocytopenia D69.6 Chronic viral hepatitis B18.9 Elevated alkaline phosphatase level R74.8 Thoracic compression fracture S22.000A Acute blood loss anemia D62 Urinary hesitancy R39.11 DVT prophylaxis Z29.9 (1) Closed intertrochanteric fracture of left hip Encounter type: initial encounter Fracture alignment: displaced Qualified Code(s): S72.142A - Displaced intertrochanteric fracture of left femur, initial encounter for closed fracture (2) CHF (congestive heart failure) Heart failure chronicity: unspecified Heart failure type: unspecified Qualified Code(s): I50.9 - Heart failure, unspecified
[2020-05-24] MEDS: AMLODIPINE BESYLATE 5 MG TAB PO SCH (21:01)
[2020-05-24] MEDS: ARIPiprazole 5 MG TAB PO SCH (21:02)
[2020-05-24] MEDS: SIMVASTATIN 40 MG TAB PO SCH (21:02)
[2020-05-24] MEDS: INSULIN GLARGINE SOLOSTAR 100 UNITS/ML 3 ML PEN SC SCH (21:04)
[2020-05-25 06:07] LABS: Basophils # (auto) 0.01 K/uL (0-0.2); Basophils % (auto) 0.3 %; Eosinophils # (auto) 0.04 K/uL (0-0.5); Eosinophils % (auto) 1.1 %; Hematocrit (blood only) 22.8 % (42-52); Hemoglobin 7.5 g/dL (14.0-18.0); Immature Granulocytes # (auto) 0.01 K/uL (0.00-0.02); Immature Granulocytes % (auto) 0.3 %; Lymphocytes # (auto) 0.82 K/uL (1.2-3.4); Lymphocytes % (auto) 23.2 %; Mean Corpuscular Hemoglobin 29.8 pg (25-34); Mean Corpuscular Hgb Conc 32.9 g/dL (32-36); Mean Corpuscular Volume 90.5 fL (80-100); Mean Platelet Volume 10.4 fL (7.4-10.4); Monocytes # (auto) 0.32 K/uL (0.11-0.59); Neutrophils # (auto) 2.34 K/uL (1.4-6.5); Neutrophils % (auto) 66.1 %; Platelet Count 124 K/uL (130-400); RDW Coefficient of Variation 14.4 % (11.5-14.5); RDW Standard Deviation 47.4 fL (36.4-46.3); Red Blood Count 2.52 M/uL (4.7-6.1); White Blood Count 3.54 K/uL (4.8-10.8)
[2020-05-25 06:39] LABS: RBC Morphology Unremarkable
[2020-05-25 06:48] LABS: BUN Creatinine Ratio 21.3 (10-20); Calcium 8.5 mg/dl (8.5-10.1); Creatinine Clr Calc Pharmacy 103.9 ml/min; Est GFR (African American) 105.9; Est GFR (Non-African American) 91.4; Potassium 3.8 mmol/L (3.5-5.1)
[2020-05-25] MEDS: INSULIN ASPART 100 UNITS/ML 3 ML PEN SC SCH ×4 (08:47→21:30)
[2020-05-25] MEDS: BusPIRone 15 MG TAB PO SCH ×2 (09:19→16:04)
[2020-05-25] MEDS: CALCIUM 600MG + VIT D 400 IU TAB PO SCH (09:20)
[2020-05-25] MEDS: SPIRONOLACTONE 25 MG TAB PO SCH ×2 (09:20→21:28)
[2020-05-25] MEDS: DOCUSATE SODIUM 100 MG CAP PO SCH ×2 (09:20→21:26)
[2020-05-25] MEDS: ASPIRIN 81 MG ECTAB PO SCH (09:20)
[2020-05-25] MEDS: VENLAFAXINE HCL XR 75 MG CAPXR PO SCH (09:21)
[2020-05-25] MEDS: FUROSEMIDE 20 MG TAB PO SCH ×2 (09:22→18:29)
[2020-05-25] MEDS: MAGNESIUM OXIDE 400 MG TAB PO SCH (09:23)
[2020-05-25] MEDS ORDERED: SIMETHICONE 80 MG CHEW PO PRN (09:23)
[2020-05-25] MEDS: GABAPENTIN 800 MG TAB PO SCH ×3 (09:24→21:28)
[2020-05-25] MEDS: FINASTERIDE 5 MG TAB PO SCH (09:24)
[2020-05-25] MEDS: SODIUM CHLORIDE 1 GM TABLET PO SCH ×2 (09:24→21:26)
[2020-05-25] MEDS: POLYETHYLENE (MIRALAX) 17 GM PACK PO SCH (09:24)
[2020-05-25] MEDS: ACETAMINOPHEN 500 MG TAB PO SCH ×3 (09:25→21:27)
[2020-05-25] MEDS: VITAMIN B COMPLEX TAB PO SCH (09:26)
[2020-05-25] MEDS: CHOLECALCIFEROL 1,000 UNITS 25 MCG TAB PO SCH (09:27)
[2020-05-25] MEDS: LIDOCAINE 5% 1 PATCH TD SCH (10:59)
--- NOTE | 2020-05-25 11:04 | Orthopedic Progress Note ---
Date of Service May 25, 2020 Assessment & Plan (1) Closed intertrochanteric fracture of left hip: Continue PT/OT WBAT with walker assistance Keep dressing in place Ice with EZ wrap Pain control with PO meds DVT prophy with SCD's inhouse, Teds and Lovenox 40 mg SQ for 4 weeks Plan on DC to SNF when available. Case Management following. Appreciate medicine service help with this patient Will need 2 wks post op f/u at [facility]. (2) Thoracic compression fracture: Dr. Burnett [facility] spine service consulted. Recommends TLSO brace to be worn when out of bed and ambulating. Admission and Anticipated Discharge Date Admission Date: May 18, 2020 Subjective This 79 yo M is day 6 s/p left hip fracture ORIF with [facility] screw. Yesterday patient complained of severe left hip pain after ambulating to his bathroom. X- rays were preformed and showed anatomic alignment with proper position of hardware without fracture. Patient states that he still has some mild pain at surgical site but is otherwise "OK." He denies CP, SOB, nausea, vomiting, fever, chills, sweats or lethargy. He is adamant that he is not going back to [facility], but case management has not been able to find placement. Review of Systems Review of Systems: All systems reviewed & are unremarkable except as noted in Subjective Physical Exam Physical Exam: Left Hip: Dressing clean, dry and intact. Neg log roll. Minimal pain with very light passive internal/external hip rotation. Unable to perform SLRT today but can actively dorsi/plantar flex foot and slightly fire his quad. Calf is soft and supple. Periph pulses palpable. Cap refill < 2 seconds. TTP over surgical site Back: TTP over distal thoracic vertebral body without palpable deformity. Increased pain when he transitions from the bed to chair and when he works with PT. Results & Data ([facility]) Vital Signs (Past 12 Hours) Vital Signs Temp Pulse Resp BP BP Pulse Ox Pulse Ox 05/25/20 07:44 36.9 C 94 H 18 136/66 94 05/25/20 04:59 92 05/25/20 00:05 90 05/24/20 23:03 36.9 C 84 16 119/63 90 Laboratory Results 05/25/20 05/25/20 05/25/20 Range/Units 08:25 04:59 04:59 WBC 3.54 L (4.8-10.8) K/uL RBC 2.52 L (4.7-6.1) M/uL Hgb 7.5 L (14.0-18.0) g/dL Hct 22.8 L (42-52) % MCV 90.5 (80-100) fL MCH 29.8 (25-34) pg MCHC 32.9 (32-36) g/dL RDW Std Deviation 47.4 H (36.4-46.3) fL RDW Coeff of Ja 14.4 (11.5-14.5) % Plt Count 124 L (130-400) K/uL MPV 10.4 (7.4-10.4) fL Immature Gran % (Auto) 0.3 % Neut % (Auto) 66.1 % Lymph % (Auto) 23.2 % [place] % (Auto) 9.0 % Eos % (Auto) 1.1 % Baso % (Auto) 0.3 % Neut # (Auto) 2.34 (1.4-6.5) K/uL Lymph # (Auto) 0.82 L (1.2-3.4) K/uL [place] # (Auto) 0.32 (0.11-0.59) K/uL Eos # (Auto) 0.04 (0-0.5) K/uL Baso # (Auto) 0.01 (0-0.2) K/uL Immature Gran # (Auto) 0.01 (0.00-0.02) K/uL RBC Morphology Unremarkable Sodium 137 (136-145) mmol/L Potassium 3.8 (3.5-5.1) mmol/L Chloride 102 (98-107) mmol/L Carbon Dioxide 30 (21-32) mmol/L Anion Gap 5.0 (3-11) BUN 14 (7-18) mg/dl Creatinine 0.67 (0.6-1.4) mg/dl Est Cr Clr Drug Dosing 103.9 ml/min Est GFR ( Amer) 105.9 Est GFR (Non-Af Amer) 91.4 BUN/Creatinine Ratio 21.3 H (10-20) Glucose 90 (70-99) mg/dl POC Glucose 111 H (70-99) mg/dl Calcium 8.5 (8.5-10.1) mg/dl 07/09/20 07/09/20 07/09/20 Range/Units 20:52 17:08 12:00 WBC (4.8-10.8) K/uL RBC (4.7-6.1) M/uL Hgb (14.0-18.0) g/dL Hct (42-52) % MCV (80-100) fL MCH (25-34) pg MCHC (32-36) g/dL RDW Std Deviation (36.4-46.3) fL RDW Coeff of Ja (11.5-14.5) % Plt Count (130-400) K/uL MPV (7.4-10.4) fL Immature Gran % (Auto) % Neut % (Auto) % Lymph % (Auto) % [place] % (Auto) % Eos % (Auto) % Baso % (Auto) % Neut # (Auto) (1.4-6.5) K/uL Lymph # (Auto) (1.2-3.4) K/uL [place] # (Auto) (0.11-0.59) K/uL Eos # (Auto) (0-0.5) K/uL Baso # (Auto) (0-0.2) K/uL Immature Gran # (Auto) (0.00-0.02) K/uL RBC Morphology Sodium (136-145) mmol/L Potassium (3.5-5.1) mmol/L Chloride (98-107) mmol/L Carbon Dioxide (21-32) mmol/L Anion Gap (3-11) BUN (7-18) mg/dl Creatinine (0.6-1.4) mg/dl Est Cr Clr Drug Dosing ml/min Est GFR ( Amer) Est GFR (Non-Af Amer) BUN/Creatinine Ratio (10-20) Glucose (70-99) mg/dl POC Glucose 186 H 156 H 147 H (70-99) mg/dl Calcium (8.5-10.1) mg/dl (1) Closed intertrochanteric fracture of left hip Encounter type: initial encounter Fracture alignment: displaced Qualified Code(s): S72.142A - Displaced intertrochanteric fracture of left femur, initial encounter for closed fracture
--- NOTE | 2020-05-25 14:52 | XRay Report ---
XR KUB/Abdomen 1 view CLINICAL HISTORY: belly pain pain COMPARISON STUDY: No previous studies for comparison. FINDINGS: The soft tissues, psoas shadows, renal outlines and intestinal gas pattern appear normal. T here is no evidence for bowel obstruction. No abnormal abdominal calcifications are seen. Compression deformity T12 consider old IMPRESSION: No acute process. Nonobstructive bowel pattern. ACT 112: Negative or not required by law. The above report was generated using voice recognition software. It may contain grammatical, syntax or spelling errors. Electronically signed by: Edmond Sagastume M.D. 05/25/2020 2:51 PM
[2020-05-25] MEDS: TAMSULOSIN HCL 0.4 MG CAP PO SCH (16:04)
[2020-05-25] MEDS: ENOXAPARIN INJ 40 MG/0.4 ML SYR SQ SCH (16:05)
[2020-05-25] MEDS ORDERED: POLYETHYLENE (MIRALAX) 17 GM PACK PO ONE (16:18)
--- NOTE | 2020-05-25 18:10 | Hospitalist Progress Note ---
Date of Service May 25, 2020 Assessment & Plan (1) Closed intertrochanteric fracture of left hip: 79-year-old male with extensive medical past medical history noted transferred via EMS from [facility] for reported fall out of wheelchair seen to have closed left hip fracture on imaging. Likely age-related osteoporotic fracture of the left femur insetting of chair height fall * Hip/Pelvis XR- Intertrochanteric left femoral fracture * Pain management with ANTHONY Tylenol, lidocaine patch, prn IV morphine * Ortho consulted * s/p LEFT ORIF with Dr. Cherry 05/19 * PT/OT/DVT per orthopedics -- patient to have SCDs, Lovenox x 4 week for DVT proph * CM assisting with placement as daughter looking into different facilities *Patient with multiple falls at [facility] -- complaints of low back pain compared to in the past --> XRAY Lumbar/Thoracic spine ordered * Acute versus subacute T12 burst fracture without retropulsion, new from 03/17/2020 without subluxation or acute fracture of lumbar spine * Ortho spine consulted -- Dr. Burnett recommends TLSO when out of bed and ambulating, no surgery for now Mentation improved from admission CT Head without acute findings. Of note, patient with hx small CVA noted on consultation by Dr Madie Madrid in the past. He also had gabapentin decreased recen tly to the 800mg TID and amantadine discontinued. Continue to hold evening trazadone (2) Hypertension: * Chronic. * Continue home home amlodipine to 7.5mg HS, spironolactone 25 mg BID , hydralazine prn, Lasix 20 mg BID (3) Hyperlipidemia: * Chronic. Continue home simvastatin 40mg PO HS (4) CHF (congestive heart failure): * Chronic HFpEF * ECHO March 2020 -- EF 55-60%, normal LVSF, no significant change since April 2019 * Continue home spironolactone, lasix as above * No s/sx overload (5) Type 2 diabetes mellitus: * Chronic. Last A1c 5.7 04/2020 * On glargine, lispro, metformin BID outpatient -- held while inpatient * ISS while inpatient - consulted pharmacy for glycemic management * BSG ac/hs (6) Chronic respiratory failure with hypoxia: * with mixed restrictive/obstructive lung disease -- to be on 3.5L O2 via [place] outpatient -- per patient he only utilizes this sometimes. Has seen Dr. 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 Continue home Gabapentin 800mg TID (9) Tardive dyskinesia: * Thought to be related to home antipsychotic, on aripiprazole * Follows psych outpatient * Per neurology, his home gabapentin dosing was decreased from QID to TID as above and his home amantadine was discontinued (10) Microscopic hematuria: * On prior discharge, plan was for outpatient cystoscopy with urology. No UA RBCs seen on this admit (11) Anxiety with depression: * Chronic * Continue home buspirone, effexor * Trazodone held to avoid increased lethargy (12) Chronic respiratory failure with hypoxia, on home oxygen therapy: * See above (13) TERI (obstructive sleep apnea): * Has BiPAP but doesn't wear -- utilizes O2 via [place] -- continue while inpatient (14) Thrombocytopenia: * Stable * Seen by hematology in 2018, noted thrombocytopenia likely related to Hepatitis C (s/p blood transfusion) * Continue to monitor (15) Chronic viral hepatitis: * Secondary to blood transfusion. (16) Elevated alkaline phosphatase level: * elevated at 181 on discharge March 2020 as well * resolved (17) Thoracic compression fracture: * [facility] admission and complains of back pain * X-rays of thoracic and lumbar spine show a acute to subacute T12 burst fracture without retropulsion * Consulted spine surgery, as above (18) Acute blood loss anemia: Hgb stable around7.5 - 8 down from 11.8 preop Stable Repeat CBC am (19) Urinary hesitancy: Resolved, patient able to void (20) Abdominal pain: Benign abdominal exam. KUB without obstruction. Some relief with bowel movement, will give dose of Miralax as well. (21) DVT prophylaxis: * SCDs * Lovenox x 4 weeks Admission and Anticipated Discharge Date Admission Date: May 18, 2020 Supervising Physician Co-Signing Physician Notes chart reviewed and case d/w S Brennen QUINTANILLA. as above Subjective Mr. Page's main complaint this morning is diffuse gas pains in his belly. This pain improved with a large bowel movement this afternoon. His hip pain is much better today ROS Constitutional: no chills, aches, sweats or fever Respiratory: no sob,cough, sputum, or wheezing Cardiac: no chest pain, palpitations, edema, orthopnea or lightheadedness GI: no abdominal pain, nausea, vomiting, diarrhea or constipation : no dysuria or hesitancy Extremities: no joint pain or weakness Skin: no rash All other systems reviewed and negative Physical Exam Physical Exam: General: no distress Eyes: normal inspection, PERLL Respiratory: chest non tender, clear to auscultation, normal breath sounds, no respiratory distress, no accessory muscle use Cardiac: regular rate and rhythm, no rub or gallop, no murmur, no edema, no jvd GI/: active bowel sounds, mild abdominal pain to palpation, no guarding, soft, non distended Extremities: normal range of motion, normal strength, non tender Neuro/Psych: alert and oriented x 3, normal mood and affect Skin: normal color, dry Results & Data Results & Data ([facility]) Vital Signs (Past 12 Hours) Vital Signs Temp Pulse Resp BP BP Pulse Ox 05/25/20 15:59 37.1 C 89 18 131/63 92 05/25/20 07:44 36.9 C 94 H 18 136/66 94 PG Care Time/CCT Total # of Minutes Spent Total Time Spent with Patient: Total time spent is greater than 50% in coordination of care (as documented) at patient's floor/unit and/or counseling patient: Coding Level of Care Code 81055 Subseq Hosp Care Lvl 2 Diagnoses Closed intertrochanteric fracture of left hip S72.142A Encounter type: initial encounter Fracture alignment: displaced Hypertension I10 Hyperlipidemia E78.5 CHF (congestive heart failure) I50.9 Heart failure chronicity: unspecified Heart failure type: unspecified Type 2 diabetes mellitus E11.9 Chronic respiratory failure with hypoxia J96.11 Mixed restrictive and obstructive lung disease J43.9; J98.4 Peripheral neuropathy G62.9 Tardive dyskinesia G24.01 Microscopic hematuria R31.29 Anxiety with depression F41.8 Chronic respiratory failure with hypoxia, on home oxygen therapy J96.11; Z99.81 TERI (obstructive sleep apnea) G47.33 Thrombocytopenia D69.6 Chronic viral hepatitis B18.9 Elevated alkaline phosphatase level R74.8 Thoracic compression fracture S22.000A Acute blood loss anemia D62 Urinary hesitancy R39.11 Abdominal pain R10.9 DVT prophylaxis Z29.9 (1) CHF (congestive heart failure) Heart failure chronicity: unspecified Heart failure type: unspecified Qualified Code(s): I50.9 - Heart failure, unspecified (2) Closed intertrochanteric fracture of left hip Encounter type: initial encounter Fracture alignment: displaced Qualified Code(s): S72.142A - Displaced intertrochanteric fracture of left femur, initial encounter for closed fracture
[2020-05-25] MEDS: TRAMADOL HCL 50 MG TABLET PO PRN (19:44)
[2020-05-25] MEDS: ARIPiprazole 5 MG TAB PO SCH (19:46)
[2020-05-25] MEDS: AMLODIPINE BESYLATE 5 MG TAB PO SCH (19:48)
[2020-05-25] MEDS: SIMVASTATIN 40 MG TAB PO SCH (19:49)
[2020-05-25] MEDS: INSULIN GLARGINE SOLOSTAR 100 UNITS/ML 3 ML PEN SC SCH (21:29)
[2020-05-26 06:45] LABS: Basophils # (auto) 0.01 K/uL (0-0.2); Basophils % (auto) 0.3 %; Eosinophils # (auto) 0.04 K/uL (0-0.5); Hematocrit (blood only) 25.1 % (42-52); Immature Granulocytes # (auto) 0.01 K/uL (0.00-0.02); Immature Granulocytes % (auto) 0.3 %; Lymphocytes # (auto) 0.88 K/uL (1.2-3.4); Lymphocytes % (auto) 22.9 %; Mean Corpuscular Hemoglobin 29.5 pg (25-34); Mean Corpuscular Hgb Conc 31.9 g/dL (32-36); Mean Corpuscular Volume 92.6 fL (80-100); Mean Platelet Volume 9.7 fL (7.4-10.4); Monocytes # (auto) 0.35 K/uL (0.11-0.59); Monocytes % (auto) 9.1 %; Neutrophils # (auto) 2.55 K/uL (1.4-6.5); Neutrophils % (auto) 66.4 %; Platelet Count 137 K/uL (130-400); RDW Coefficient of Variation 14.7 % (11.5-14.5); RDW Standard Deviation 48.9 fL (36.4-46.3); Red Blood Count 2.71 M/uL (4.7-6.1); White Blood Count 3.84 K/uL (4.8-10.8)
[2020-05-26] MEDS: INSULIN ASPART 100 UNITS/ML 3 ML PEN SC SCH ×4 (09:00→20:33)
[2020-05-26] MEDS: BusPIRone 15 MG TAB PO SCH ×2 (09:40→18:01)
[2020-05-26] MEDS: SPIRONOLACTONE 25 MG TAB PO SCH ×2 (09:41→20:29)
[2020-05-26] MEDS: CALCIUM 600MG + VIT D 400 IU TAB PO SCH (09:41)
[2020-05-26] MEDS: DOCUSATE SODIUM 100 MG CAP PO SCH ×2 (09:42→20:29)
[2020-05-26] MEDS: ASPIRIN 81 MG ECTAB PO SCH (09:42)
[2020-05-26] MEDS: CHOLECALCIFEROL 1,000 UNITS 25 MCG TAB PO SCH (09:42)
[2020-05-26] MEDS: VENLAFAXINE HCL XR 75 MG CAPXR PO SCH (09:43)
[2020-05-26] MEDS: FINASTERIDE 5 MG TAB PO SCH (09:44)
[2020-05-26] MEDS: MAGNESIUM OXIDE 400 MG TAB PO SCH (09:44)
[2020-05-26] MEDS: SODIUM CHLORIDE 1 GM TABLET PO SCH ×2 (09:45→20:30)
[2020-05-26] MEDS: GABAPENTIN 800 MG TAB PO SCH ×3 (09:45→20:29)
[2020-05-26] MEDS: POLYETHYLENE (MIRALAX) 17 GM PACK PO SCH (09:45)
[2020-05-26] MEDS: FUROSEMIDE 20 MG TAB PO SCH ×2 (09:45→18:02)
[2020-05-26] MEDS: ACETAMINOPHEN 500 MG TAB PO SCH ×3 (09:46→20:30)
[2020-05-26] MEDS: VITAMIN B COMPLEX TAB PO SCH (09:46)
[2020-05-26] MEDS: LIDOCAINE 5% 1 PATCH TD SCH (09:47)
[2020-05-26] MEDS: TRAMADOL HCL 50 MG TABLET PO PRN ×2 (11:55→15:52)
--- NOTE | 2020-05-26 12:53 | Pharmacy Report ---
Pharmacy Glycemic Short Note 2 - Date of Service May 26, 2020 - Glycemic Short BSG Results (Last 24 hours): 05/25/20 05/25/20 05/26/20 17:25 21:01 08:23 POC Glucose 213 H 177 H 104 H 05/26/20 12:32 POC Glucose 196 H OUTPATIENT ANTIDIABETIC REGIMEN: * Basaglar 16 units QPM, Humalog SS, Metformin 500 mg BID * A1c 5.7% 04/17/2020 ASSESSMENT: 05/26 * Patient has received 50 units of insulin over past 24 hours, blood sugars rising throughout the day with meals. * Tighten CR slightly. * Fasting blood sugar at goal, continue lantus on scale. 05/24 * Patient received total of 50 units of insulin yesterday, of which 24 were basal insulin * Fasting BSG 118 mg/dL and is w/in range - continue same basal insulin * Continue same CF/CR PLAN FOR INPATIENT GLYCEMIC CONTROL: * Hold outpatient oral diabetes medications * Basal insulin * Lantus SQ QPM based on BSG * BSG < 180mg/dl - 20 units * BSG 180mg/dl or greater - 24 units * Bolus insulin * NovoLog per scale ACHS or Q6hrs while NPO * Goal Range: Low 110 mg/dL - High 140 mg/dL * Correction Factor: 20 mg/dL/unit * TIGHTEN: Nutritional / Prandial insulin per carb ratio of 1 unit per 6 grams CHO consumed PLAN FOR DISCHARGE: * A1C of 5.7 indicates excellent glycemic control outpatient - however based upon age/comorbidities would recommend less stringent A1C goal <7% * Would recommend continuation of home diabetic medications post discharge. Would ensure patient not having any low BSGs at home prior to continuation of home regimen.
--- NOTE | 2020-05-26 15:15 | Hospitalist Progress Note ---
Date of Service May 26, 2020 Assessment & Plan (1) Closed intertrochanteric fracture of left hip: 79-year-old male with extensive medical past medical history noted transferred via EMS from [facility] for reported fall out of wheelchair seen to have closed left hip fracture on imaging. Likely age-related osteoporotic fracture of the left femur insetting of chair height fall * Hip/Pelvis XR- Intertrochanteric left femoral fracture * Pain management with ANTHONY Tylenol, lidocaine patch, prn IV morphine * Ortho consulted * s/p LEFT ORIF with Dr. Cherry 05/19 * PT/OT/DVT per orthopedics -- patient to have SCDs, Lovenox x 4 week for DVT proph * CM assisting with placement as daughter looking into different facilities *Patient with multiple falls at [facility] -- complaints of low back pain compared to in the past --> XRAY Lumbar/Thoracic spine ordered * Acute versus subacute T12 burst fracture without retropulsion, new from 03/17/2020 without subluxation or acute fracture of lumbar spine * Ortho spine consulted -- Dr. Burnett recommends TLSO when out of bed and ambulating, no surgery for now Mentation improved from admission CT Head without acute findings. Of note, patient with hx small CVA noted on consultation by Dr Madie Madrid in the past. He also had gabapentin decreased recen tly to the 800mg TID and amantadine discontinued. Continue to hold evening trazadone (2) Hypertension: * Chronic. * Continue home amlodipine to 7.5mg HS, spironolactone 25 mg BID , hydralazine prn, Lasix 20 mg BID (3) Hyperlipidemia: * Chronic. Continue home simvastatin 40mg PO HS (4) CHF (congestive heart failure): * Chronic HFpEF * ECHO March 2020 -- EF 55-60%, normal LVSF, no significant change since April 2019 * Continue home spironolactone, lasix as above * No s/sx overload (5) Type 2 diabetes mellitus: * Chronic. Last A1c 5.7 04/2020 * On glargine, lispro, metformin BID outpatient -- held while inpatient * ISS while inpatient - consulted pharmacy for glycemic management * BSG ac/hs (6) Chronic respiratory failure with hypoxia: * with mixed restrictive/obstructive lung disease -- to be on 3.5L O2 via [place] outpatient -- per patient he only utilizes this sometimes. Has seen Dr. 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 Continue home Gabapentin 800mg TID (9) Tardive dyskinesia: * Thought to be related to home antipsychotic, on aripiprazole * Follows psych outpatient * Per neurology, his home gabapentin dosing was decreased from QID to TID as above and his home amantadine was discontinued (10) Microscopic hematuria: * On prior discharge, plan was for outpatient cystoscopy with urology. No UA RBCs seen on this admit (11) Anxiety with depression: * Chronic * Continue home buspirone, effexor * Trazodone held to avoid increased lethargy (12) Chronic respiratory failure with hypoxia, on home oxygen therapy: * See above (13) TERI (obstructive sleep apnea): * Has BiPAP but doesn't wear -- utilizes O2 via [place] -- continue while inpatient (14) Thrombocytopenia: * Stable * Seen by hematology in 2018, noted thrombocytopenia likely related to Hepatitis C (s/p blood transfusion) * Continue to monitor (15) Chronic viral hepatitis: * Secondary to blood transfusion. (16) Elevated alkaline phosphatase level: * elevated at 181 on discharge March 2020 as well * resolved (17) Thoracic compression fracture: * Has had numerous falls at the snf since last admission and complains of back pain * X-rays of thoracic and lumbar spine show a acute to subacute T12 burst fracture without retropulsion * Consulted spine surgery, as above (18) Acute blood loss anemia: Hgb stable around 7.5 - 8 down from 11.8 preop Stable (19) Urinary hesitancy: Resolved, patient able to void (20) Abdominal pain: Resolved, KUB without obstruction (21) DVT prophylaxis: * SCDs * Lovenox x 4 weeks Admission and Anticipated Discharge Date Admission Date: May 18, 2020 Supervising Physician Co-Signing Physician Notes chart reviewed and case d/w S Brennen QUINTANILLA. as above Subjective Mr. Page is feeling well today. No further abdominal pain, had a BM yesterday. Surgical site pain tolerable ROS Constitutional: no chills, aches, sweats or fever Respiratory: no sob,cough, sputum, or wheezing Cardiac: no chest pain, palpitations, edema, orthopnea or lightheadedness GI: no abdominal pain, nausea, vomiting, diarrhea or constipation : no dysuria or hesitancy Extremities: no joint pain or weakness Skin: no rash All other systems reviewed and negative Physical Exam Physical Exam: General: no distress Eyes: normal inspection, PERLL Respiratory: chest non tender, clear to auscultation, normal breath sounds, no respiratory distress, no accessory muscle use Cardiac: regular rate and rhythm, no rub or gallop, no murmur, no edema, no jvd GI/: active bowel sounds, no abd pain or tenderness, soft, non distended Extremities: normal range of motion, normal strength, non tender Neuro/Psych: alert and oriented x 3, normal mood and affect Skin: normal color, dry Results & Data Results & Data ([facility]) Vital Signs (Past 12 Hours) Vital Signs Temp Pulse Resp BP BP Pulse Ox 05/26/20 14:54 37.2 C 96 H 18 126/71 96 05/26/20 08:07 37.0 C 86 16 139/61 93 PG Care Time/CCT Total # of Minutes Spent Total Time Spent with Patient: Total time spent is greater than 50% in coordination of care (as documented) at patient's floor/unit and/or counseling patient: Coding Level of Care Code 81892 Subseq Hosp Care Lvl 2 Diagnoses Closed intertrochanteric fracture of left hip S72.142A Encounter type: initial encounter Fracture alignment: displaced Hypertension I10 Hyperlipidemia E78.5 CHF (congestive heart failure) I50.9 Heart failure chronicity: unspecified Heart failure type: unspecified Type 2 diabetes mellitus E11.9 Chronic respiratory failure with hypoxia J96.11 Mixed restrictive and obstructive lung disease J43.9; J98.4 Peripheral neuropathy G62.9 Tardive dyskinesia G24.01 Microscopic hematuria R31.29 Anxiety with depression F41.8 Chronic respiratory failure with hypoxia, on home oxygen therapy J96.11; Z99.81 TERI (obstructive sleep apnea) G47.33 Thrombocytopenia D69.6 Chronic viral hepatitis B18.9 Elevated alkaline phosphatase level R74.8 Thoracic compression fracture S22.000A Acute blood loss anemia D62 Urinary hesitancy R39.11 Abdominal pain R10.9 DVT prophylaxis Z29.9 (1) CHF (congestive heart failure) Heart failure chronicity: unspecified Heart failure type: unspecified Qualified Code(s): I50.9 - Heart failure, unspecified (2) Closed intertrochanteric fracture of left hip Encounter type: initial encounter Fracture alignment: displaced Qualified Code(s): S72.142A - Displaced intertrochanteric fracture of left femur, initial encounter for closed fracture
[2020-05-26] MEDS: ENOXAPARIN INJ 40 MG/0.4 ML SYR SQ SCH (15:54)
[2020-05-26] MEDS: TAMSULOSIN HCL 0.4 MG CAP PO SCH (18:02)
[2020-05-26] MEDS: ARIPiprazole 5 MG TAB PO SCH (20:26)
[2020-05-26] MEDS: AMLODIPINE BESYLATE 5 MG TAB PO SCH (20:27)
[2020-05-26] MEDS: SIMVASTATIN 40 MG TAB PO SCH (20:28)
[2020-05-26] MEDS: INSULIN GLARGINE SOLOSTAR 100 UNITS/ML 3 ML PEN SC SCH (20:32)
[2020-05-27] MEDS: SPIRONOLACTONE 25 MG TAB PO SCH ×2 (08:44→20:22)
[2020-05-27] MEDS: SODIUM CHLORIDE 1 GM TABLET PO SCH ×2 (08:45→20:24)
[2020-05-27] MEDS: GABAPENTIN 800 MG TAB PO SCH ×3 (08:46→20:23)
[2020-05-27] MEDS: VITAMIN B COMPLEX TAB PO SCH (08:47)
[2020-05-27] MEDS: VENLAFAXINE HCL XR 75 MG CAPXR PO SCH (08:47)
[2020-05-27] MEDS: CALCIUM 600MG + VIT D 400 IU TAB PO SCH (08:47)
[2020-05-27] MEDS: DOCUSATE SODIUM 100 MG CAP PO SCH ×2 (08:48→20:23)
[2020-05-27] MEDS: CHOLECALCIFEROL 1,000 UNITS 25 MCG TAB PO SCH (08:48)
[2020-05-27] MEDS: MAGNESIUM OXIDE 400 MG TAB PO SCH (08:48)
[2020-05-27] MEDS: FINASTERIDE 5 MG TAB PO SCH (08:48)
[2020-05-27] MEDS: BusPIRone 15 MG TAB PO SCH ×2 (08:49→17:55)
[2020-05-27] MEDS: ASPIRIN 81 MG ECTAB PO SCH (08:49)
[2020-05-27] MEDS: FUROSEMIDE 20 MG TAB PO SCH ×2 (08:49→17:54)
[2020-05-27] MEDS: LIDOCAINE 5% 1 PATCH TD SCH (08:50)
[2020-05-27] MEDS: POLYETHYLENE (MIRALAX) 17 GM PACK PO SCH (08:51)
[2020-05-27] MEDS: ACETAMINOPHEN 500 MG TAB PO SCH ×3 (08:52→20:24)
[2020-05-27] MEDS: INSULIN ASPART 100 UNITS/ML 3 ML PEN SC SCH ×4 (09:04→20:28)
[2020-05-27] MEDS: MoRPHine SULFATE 2 MG/ML CARP IV PRN (10:42)
--- NOTE | 2020-05-27 11:16 | Hospitalist Progress Note ---
Date of Service May 27, 2020 Assessment & Plan (1) Closed intertrochanteric fracture of left hip: 79-year-old male with extensive medical past medical history noted transferred via EMS from [facility] for reported fall out of wheelchair seen to have closed left hip fracture on imaging. Likely age-related osteoporotic fracture of the left femur insetting of chair height fall * Hip/Pelvis XR- Intertrochanteric left femoral fracture * Pain management with ANTHONY Tylenol, lidocaine patch, prn IV morphine * Ortho consulted * s/p LEFT ORIF with Dr. Cherry 05/19 * PT/OT/DVT per orthopedics -- patient to have SCDs, Lovenox x 4 week for DVT proph * CM assisting with placement as daughter looking into different facilities *Patient with multiple falls at [facility] -- complaints of low back pain compared to in the past --> XRAY Lumbar/Thoracic spine ordered * Acute versus subacute T12 burst fracture without retropulsion, new from 03/17/2020 without subluxation or acute fracture of lumbar spine * Ortho spine consulted -- Dr. Burnett recommends TLSO when out of bed and ambulating, no surgery for now Mentation improved from admission CT Head without acute findings. Of note, patient with hx small CVA noted on consultation by Dr. Madrid in the past. He also had gabapentin decreased recently to the 800mg TID and amantadine discontinued. Continue to hold evening trazadone (2) Hypertension: * Chronic. * Continue home amlodipine to 7.5mg HS, spironolactone 25 mg BID , hydralazine prn, Lasix 20 mg BID (3) Hyperlipidemia: * Chronic. Continue home simvastatin 40mg PO HS (4) CHF (congestive heart failure): * Chronic HFpEF * ECHO March 2020 -- EF 55-60%, normal LVSF, no significant change since April 2019 * Continue home spironolactone, lasix as above * No s/sx overload (5) Type 2 diabetes mellitus: * Chronic. Last A1c 5.7 04/2020 * On glargine, lispro, metformin BID outpatient -- held while inpatient * ISS while inpatient - consulted pharmacy for glycemic management * BSG ac/hs (6) Chronic respiratory failure with hypoxia: * with mixed restrictive/obstructive lung disease -- to be on 3.5L O2 via [place] outpatient -- per patient he only utilizes this sometimes. Has seen Dr. 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 Continue home Gabapentin 800mg TID (9) Tardive dyskinesia: * Thought to be related to home antipsychotic, on aripiprazole * Follows psych outpatient * Per neurology, his home gabapentin dosing was decreased from QID to TID as above and his home amantadine was discontinued (10) Microscopic hematuria: * On prior discharge, plan was for outpatient cystoscopy with urology. No UA RBCs seen on this admit (11) Anxiety with depression: * Chronic * Continue home buspirone, effexor * Trazodone held to avoid increased lethargy (12) Chronic respiratory failure with hypoxia, on home oxygen therapy: * See above (13) TERI (obstructive sleep apnea): * Has BiPAP but doesn't wear -- utilizes O2 via [place] -- continue while inpatient (14) Thrombocytopenia: * Stable * Seen by hematology in 2018, noted thrombocytopenia likely related to Hepatitis C (s/p blood transfusion) * Continue to monitor (15) Chronic viral hepatitis: * Secondary to blood transfusion. (16) Elevated alkaline phosphatase level: * elevated at 181 on discharge March 2020 as well * resolved (17) Thoracic compression fracture: * Has had numerous falls at the assisted since last admission and complains of back pain * X-rays of thoracic and lumbar spine show a acute to subacute T12 burst fracture without retropulsion * Consulted spine surgery, as above (18) Acute blood loss anemia: Hgb stable around 7.5 - 8 down from 11.8 preop Stable (19) Urinary hesitancy: Resolved, patient able to void (20) Abdominal pain: Resolved, KUB without obstruction (21) DVT prophylaxis: * SCDs * Lovenox x 4 weeks Dispo: awaiting placement, case management has multiple referrals out Admission and Anticipated Discharge Date Admission Date: May 18, 2020 Supervising Physician Co-Signing Physician Notes case d/w S Brennen QUINTANILLA. as above Subjective Mr. jorge is feeling ok today but with some pain in his hip and back. He otherwise has no complaints. ROS Constitutional: no chills, aches, sweats or fever Respiratory: no sob,cough, sputum, or wheezing Cardiac: no chest pain, palpitations, edema, orthopnea or lightheadedness GI: no abdominal pain, nausea, vomiting, diarrhea or constipation : no dysuria or hesitancy Extremities: no joint pain or weakness Skin: no rash All other systems reviewed and negative Physical Exam Physical Exam: General: no distress Eyes: normal inspection, PERLL Respiratory: chest non tender, clear to auscultation, normal breath sounds, no respiratory distress, no accessory muscle use Cardiac: regular rate and rhythm, no rub or gallop, no murmur, no edema, no jvd GI/: active bowel sounds, no abd pain or tenderness, soft, non distended Extremities: normal range of motion, normal strength, non tender Neuro/Psych: alert and oriented x 3, normal mood and affect Skin: normal color, dry Results & Data Results & Data ([facility]) Vital Signs (Past 12 Hours) Vital Signs Temp Pulse Resp BP Pulse Ox 05/27/20 07:29 37.1 C 88 16 146/62 H 92 PG Care Time/CCT Total # of Minutes Spent Total Time Spent with Patient: Total time spent is greater than 50% in coordination of care (as documented) at patient's floor/unit and/or counseling patient: Coding Level of Care Code 08312 Subseq Hosp Care Lvl 2 Diagnoses Closed intertrochanteric fracture of left hip S72.142A Encounter type: initial encounter Fracture alignment: displaced Hypertension I10 Hyperlipidemia E78.5 CHF (congestive heart failure) I50.9 Heart failure chronicity: unspecified Heart failure type: unspecified Type 2 diabetes mellitus E11.9 Chronic respiratory failure with hypoxia J96.11 Mixed restrictive and obstructive lung disease J43.9; J98.4 Peripheral neuropathy G62.9 Tardive dyskinesia G24.01 Microscopic hematuria R31.29 Anxiety with depression F41.8 Chronic respiratory failure with hypoxia, on home oxygen therapy J96.11; Z99.81 TERI (obstructive sleep apnea) G47.33 Thrombocytopenia D69.6 Chronic viral hepatitis B18.9 Elevated alkaline phosphatase level R74.8 Thoracic compression fracture S22.000A Acute blood loss anemia D62 Urinary hesitancy R39.11 Abdominal pain R10.9 DVT prophylaxis Z29.9 (1) CHF (congestive heart failure) Heart failure chronicity: unspecified Heart failure type: unspecified Qualified Code(s): I50.9 - Heart failure, unspecified (2) Closed intertrochanteric fracture of left hip Encounter type: initial encounter Fracture alignment: displaced Qualified Code(s): S72.142A - Displaced intertrochanteric fracture of left femur, initial encounter for closed fracture
[2020-05-27] MEDS: ENOXAPARIN INJ 40 MG/0.4 ML SYR SQ SCH (15:22)
[2020-05-27] MEDS: TRAMADOL HCL 50 MG TABLET PO PRN (15:25)
[2020-05-27] MEDS: TAMSULOSIN HCL 0.4 MG CAP PO SCH (17:54)
[2020-05-27] MEDS: ARIPiprazole 5 MG TAB PO SCH (20:19)
[2020-05-27] MEDS: AMLODIPINE BESYLATE 5 MG TAB PO SCH (20:21)
[2020-05-27] MEDS: SIMVASTATIN 40 MG TAB PO SCH (20:22)
[2020-05-27] MEDS: INSULIN GLARGINE SOLOSTAR 100 UNITS/ML 3 ML PEN SC SCH (20:28)
[2020-05-28] MEDS: DOCUSATE SODIUM 100 MG CAP PO SCH ×2 (07:22→21:36)
[2020-05-28] MEDS: ACETAMINOPHEN 500 MG TAB PO SCH ×3 (07:22→22:49)
[2020-05-28] MEDS: VENLAFAXINE HCL XR 75 MG CAPXR PO SCH (07:22)
[2020-05-28] MEDS: FINASTERIDE 5 MG TAB PO SCH (07:23)
[2020-05-28] MEDS: GABAPENTIN 800 MG TAB PO SCH ×3 (07:23→21:36)
[2020-05-28] MEDS: POLYETHYLENE (MIRALAX) 17 GM PACK PO SCH (07:23)
[2020-05-28] MEDS: SPIRONOLACTONE 25 MG TAB PO SCH ×2 (07:23→21:36)
[2020-05-28] MEDS: FUROSEMIDE 20 MG TAB PO SCH ×2 (07:23→17:59)
[2020-05-28] MEDS: CALCIUM 600MG + VIT D 400 IU TAB PO SCH (07:23)
[2020-05-28] MEDS: ASPIRIN 81 MG ECTAB PO SCH (07:23)
[2020-05-28] MEDS: CHOLECALCIFEROL 1,000 UNITS 25 MCG TAB PO SCH (07:24)
[2020-05-28] MEDS: VITAMIN B COMPLEX TAB PO SCH (07:24)
[2020-05-28] MEDS: MAGNESIUM OXIDE 400 MG TAB PO SCH (07:24)
[2020-05-28] MEDS: BusPIRone 15 MG TAB PO SCH ×2 (07:24→15:52)
[2020-05-28] MEDS: LIDOCAINE 5% 1 PATCH TD SCH (07:27)
[2020-05-28] MEDS: SODIUM CHLORIDE 1 GM TABLET PO SCH ×2 (08:35→21:36)
[2020-05-28] MEDS: INSULIN ASPART 100 UNITS/ML 3 ML PEN SC SCH ×4 (08:36→21:47)
[2020-05-28] MEDS: TRAMADOL HCL 50 MG TABLET PO PRN ×3 (11:11→23:29)
[2020-05-28] MEDS: ENOXAPARIN INJ 40 MG/0.4 ML SYR SQ SCH (15:14)
--- NOTE | 2020-05-28 15:44 | Hospitalist Progress Note ---
Date of Service May 28, 2020 Assessment & Plan (1) Closed intertrochanteric fracture of left hip: 79-year-old male with extensive medical past medical history noted transferred via EMS from [facility] for reported fall out of wheelchair seen to have closed left hip fracture on imaging. Likely age-related osteoporotic fracture of the left femur insetting of chair height fall * Hip/Pelvis XR- Intertrochanteric left femoral fracture * Pain management with ANTHONY Tylenol-decrease the dose to 650 mg p.o. 3 times daily given history of chronic liver disease, continue tramadol PRN, and continue lidocaine patch to the back for pain; DC IV morphine * Ortho consulted-appreciate surgical management * s/p LEFT ORIF with Dr. Cherry 05/19 * PT/OT/DVT per orthopedics -- patient to have SCDs, DESHAUN pena, Lovenox x 4 week for DVT proph * CM assisting with placement as daughter looking into different facilities- still awaiting placement (2) Hypertension: * Blood pressures are controlled * Continue home amlodipine to 7.5mg HS, spironolactone 25 mg BID , Lasix 20 mg BID (3) Hyperlipidemia: * Chronic. Continue home simvastatin 40mg PO HS (4) CHF (congestive heart failure): * Chronic HFpEF, euvolemic at this time * ECHO March 2020 -- EF 55-60%, normal LVSF, no significant change since April 2019 * Continue home spironolactone, lasix (5) Type 2 diabetes mellitus: * Chronic. Last A1c 5.7 04/2020 * On glargine, lispro, metformin BID outpatient -- held while inpatient * ISS while inpatient - consulted pharmacy for glycemic management * BSG ac/hs are well controlled (6) Chronic respiratory failure with hypoxia: * with mixed restrictive/obstructive lung disease -- to be on 3.5L O2 via [place] outpatient -- per patient he only utilizes this sometimes. Has seen Dr. 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 Continue home Gabapentin 800mg TID (9) Tardive dyskinesia: * Thought to be related to home antipsychotic, on aripiprazole * Follows psych outpatient * Per neurology, his home gabapentin dosing was decreased from QID to TID as above and his home amantadine was discontinued on a previous admission (10) Microscopic hematuria: * On prior discharge, plan was for outpatient cystoscopy with urology. No UA RBCs seen on this admit (11) Anxiety with depression: * Chronic, stable * Continue home buspirone, effexor * Trazodone held to avoid increased lethargy that he was having in the postop period (12) TERI (obstructive sleep apnea): * Has BiPAP but doesn't wear -- utilizes O2 via [place] -- continue while inpatient (13) Thrombocytopenia: * Stable, resolved * Seen by hematology in 2018, noted thrombocytopenia likely related to Hepatitis C (s/p blood transfusion) * Continue to monitor with CBC in the morning (14) Chronic viral hepatitis: * Secondary to blood transfusion. Hepatitis C (15) Elevated alkaline phosphatase level: * elevated at 181 and improved, was likely related to bony fracture * resolved (16) Thoracic compression fracture: * [facility] and complains of back pain * X-rays of thoracic and lumbar spine show a acute to subacute T12 burst fractu re without retropulsion, new from 03/17/2020 without subluxation or acute fracture of lumbar spine * Ortho spine consulted -- Dr. Burnett recommends TLSO when out of bed and ambulating, no surgery for now * Continue lidocaine patch (17) Acute blood loss anemia: Hgb stable around 7.5 - 8 down from 11.8 preop Stable -Follow CBC in the morning (18) Urinary hesitancy: Resolved, patient able to void Continue finasteride and tamsulosin (19) Hyponatremia: From a previous admission, improved with the addition of Lasix and sodium chloride tablets 1 g p.o. twice daily -Follow BMP in the morning Most recent sodium level here was normal at 137 (20) DVT prophylaxis: * SCDs * Lovenox x 4 weeks Dispo: awaiting placement, case management has multiple referrals out-has a bed now at [facility] but daughter is interviewing them to see if she thinks it is an appropriate facility for her father and then insurance authorization is needed Admission and Anticipated Discharge Date Admission Date: May 18, 2020 Subjective Patient feeling well except for some pain in his hip. He is concerned about the amount of Tylenol he is getting as he has liver disease and was told that he should not take Tylenol. Otherwise, he is eating and drinking, making urine and no trouble with voiding. He is moving his bowels and denies abdominal pain or nausea. He denies any chest pains or shortness of breath. He was out of bed with physical therapy today. He is not anxious to leave the hospital as he states "I like it here." He appears far better from a mental status standpoint than the last time I took care of him when he was here with his concussion and rule out for ventriculitis in March 2020. Review of Systems Review of Systems: All systems reviewed & are unremarkable except as noted in HPI & below Physical Exam Constitutional: WD/WN, vitals as above Eyes: + anicteric sclerae ENMT: external ear and nose normal, oropharynx normal (With frequent tongue thrusting) Neck: trachea midline, no thyromegaly Respiratory: normal respiratory effort, lungs clear to auscultation Cardiovascular: RRR, no murmur, no edema Chest (Breasts): Chest: normal inspection of chest Gastrointestinal (Abdomen): normal bowel sounds, soft, nontender, no hepatosplenomegaly Musculoskeletal: Extremities: + extremities abnormal to inspection (Left hip with dressing in place clean dry and intact), no cyanosis and no clubbing Skin: no rashes, warm and dry Neurologic: moves all extremities and awake; no focal motor deficits Psychiatric: A+Ox3, euthymic affect Lymphatic: no lymphedema Results & Data Results & Data ([facility]) Vital Signs (Past 12 Hours) Vital Signs Temp Pulse Resp BP BP Pulse Ox 05/28/20 15:27 37.6 C H 69 19 125/66 94 05/28/20 07:16 36.9 C 89 16 122/62 93 PG Care Time/CCT Total # of Minutes Spent Total Time Spent with Patient: Total time spent is greater than 50% in epic application coordinator rdination of care (as documented) at patient's floor/unit and/or counseling patient: Coding Level of Care Code 87444 Subseq Hosp Care Lvl 2 Diagnoses Closed intertrochanteric fracture of left hip S72.142A Encounter type: initial encounter Fracture alignment: displaced Hypertension I10 Hyperlipidemia E78.5 CHF (congestive heart failure) I50.9 Heart failure chronicity: unspecified Heart failure type: unspecified Type 2 diabetes mellitus E11.9 Chronic respiratory failure with hypoxia J96.11 Mixed restrictive and obstructive lung disease J43.9; J98.4 Peripheral neuropathy G62.9 Tardive dyskinesia G24.01 Microscopic hematuria R31.29 Anxiety with depression F41.8 TERI (obstructive sleep apnea) G47.33 Thrombocytopenia D69.6 Chronic viral hepatitis B18.9 Elevated alkaline phosphatase level R74.8 Thoracic compression fracture S22.000A Acute blood loss anemia D62 Urinary hesitancy R39.11 Hyponatremia E87.1 DVT prophylaxis Z29.9 (1) CHF (congestive heart failure) Heart failure chronicity: unspecified Heart failure type: unspecified Qualified Code(s): I50.9 - Heart failure, unspecified (2) Closed intertrochanteric fracture of left hip Encounter type: initial encounter Fracture alignment: displaced Qualified Code(s): S72.142A - Displaced intertrochanteric fracture of left femur, initial encounter for closed fracture
[2020-05-28] MEDS: TAMSULOSIN HCL 0.4 MG CAP PO SCH (15:53)
[2020-05-28] MEDS: AMLODIPINE BESYLATE 5 MG TAB PO SCH (21:36)
[2020-05-28] MEDS: SIMVASTATIN 40 MG TAB PO SCH (21:36)
[2020-05-28] MEDS: ARIPiprazole 5 MG TAB PO SCH (21:37)
[2020-05-28] MEDS: INSULIN GLARGINE SOLOSTAR 100 UNITS/ML 3 ML PEN SC SCH (21:48)
[2020-05-29 06:18] LABS: Eosinophils # (auto) 0.05 K/uL (0-0.5); Eosinophils % (auto) 1.2 %; Hematocrit (blood only) 24.2 % (42-52); Hemoglobin 7.9 g/dL (14.0-18.0); Immature Granulocytes # (auto) 0.01 K/uL (0.00-0.02); Immature Granulocytes % (auto) 0.2 %; Lymphocytes # (auto) 0.88 K/uL (1.2-3.4); Lymphocytes % (auto) 20.5 %; Mean Corpuscular Hemoglobin 29.8 pg (25-34); Mean Corpuscular Hgb Conc 32.6 g/dL (32-36); Mean Corpuscular Volume 91.3 fL (80-100); Mean Platelet Volume 9.8 fL (7.4-10.4); Neutrophils # (auto) 3.05 K/uL (1.4-6.5); Neutrophils % (auto) 71.1 %; Platelet Count 137 K/uL (130-400); RDW Coefficient of Variation 14.9 % (11.5-14.5); RDW Standard Deviation 49.4 fL (36.4-46.3); Red Blood Count 2.65 M/uL (4.7-6.1); White Blood Count 4.29 K/uL (4.8-10.8)
[2020-05-29 06:36] LABS: RBC Morphology Unremarkable
[2020-05-29 06:52] LABS: BUN Creatinine Ratio 16.2 (10-20); Calcium 8.3 mg/dl (8.5-10.1); Creatinine Clr Calc Pharmacy 96.7 ml/min; Est GFR (African American) 102.8; Est GFR (Non-African American) 88.7; Potassium 3.6 mmol/L (3.5-5.1)
[2020-05-29] MEDS: CALCIUM 600MG + VIT D 400 IU TAB PO SCH (08:46)
[2020-05-29] MEDS: FINASTERIDE 5 MG TAB PO SCH (08:46)
[2020-05-29] MEDS: MAGNESIUM OXIDE 400 MG TAB PO SCH (08:46)
[2020-05-29] MEDS: ACETAMINOPHEN 325 MG TAB PO SCH ×3 (08:47→21:51)
[2020-05-29] MEDS: VENLAFAXINE HCL XR 75 MG CAPXR PO SCH (08:47)
[2020-05-29] MEDS: CHOLECALCIFEROL 1,000 UNITS 25 MCG TAB PO SCH (08:47)
[2020-05-29] MEDS: GABAPENTIN 800 MG TAB PO SCH ×3 (08:47→21:49)
[2020-05-29] MEDS: BusPIRone 15 MG TAB PO SCH ×2 (08:48→17:24)
[2020-05-29] MEDS: SODIUM CHLORIDE 1 GM TABLET PO SCH ×2 (08:48→21:49)
[2020-05-29] MEDS: FUROSEMIDE 20 MG TAB PO SCH ×2 (08:48→17:24)
[2020-05-29] MEDS: VITAMIN B COMPLEX TAB PO SCH (08:48)
[2020-05-29] MEDS: SPIRONOLACTONE 25 MG TAB PO SCH ×2 (08:48→22:24)
[2020-05-29] MEDS: DOCUSATE SODIUM 100 MG CAP PO SCH ×2 (08:48→21:49)
[2020-05-29] MEDS: ASPIRIN 81 MG ECTAB PO SCH (08:48)
[2020-05-29] MEDS: LIDOCAINE 5% 1 PATCH TD SCH (08:49)
[2020-05-29] MEDS: POLYETHYLENE (MIRALAX) 17 GM PACK PO SCH (08:49)
[2020-05-29] MEDS: INSULIN ASPART 100 UNITS/ML 3 ML PEN SC SCH ×4 (08:51→21:57)
[2020-05-29] MEDS: TRAMADOL HCL 50 MG TABLET PO PRN ×2 (09:59→13:32)
[2020-05-29] MEDS: ENOXAPARIN INJ 40 MG/0.4 ML SYR SQ SCH (13:31)
--- NOTE | 2020-05-29 14:24 | Hospitalist Progress Note ---
Date of Service May 29, 2020 Assessment & Plan (1) Closed intertrochanteric fracture of left hip: 79-year-old male with extensive medical past medical history noted [facility] reported fall out of wheelchair seen to have closed left hip fracture on imaging. Likely age-related osteoporotic fracture of the left femur insetting of chair height fall * Hip/Pelvis XR- Intertrochanteric left femoral fracture * Pain management with ANTHONY Tylenol-decreased the dose to 650 mg p.o. 3 times daily given history of chronic liver disease, continue tramadol PRN, and continue lidocaine patch to the back for pain * Ortho consulted-appreciate surgical management * s/p LEFT ORIF with Dr. Cherry 05/19 * PT/OT/DVT per orthopedics -- patient to have SCDs, DESHAUN pena, [place] x 4 week for DVT proph * CM assisting with placement as daughter looking into different facilities-still awaiting placement (2) Hypertension: * Blood pressures are up slightly due to pain * Continue home amlodipine to 7.5mg HS, spironolactone 25 mg BID , Lasix 20 mg BID * control pain (3) Hyperlipidemia: * Chronic. Continue home simvastatin 40mg PO HS (4) CHF (congestive heart failure): * Chronic HFpEF, euvolemic at this time * ECHO March 2020 -- EF 55-60%, normal LVSF, no significant change since April 2019 * Continue home spironolactone, lasix (5) Type 2 diabetes mellitus: * Chronic. Last A1c 5.7 04/2020 * On glargine, lispro, metformin BID outpatient -- held while inpatient * ISS while inpatient - consulted pharmacy for glycemic management * BSG ac/hs are well controlled (6) Chronic respiratory failure with hypoxia: * with mixed restrictive/obstructive lung disease -- to be on 3.5L O2 via [place] outpatient -- per patient he only utilizes this sometimes. Has seen Dr. 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 Continue home Gabapentin 800mg TID (9) Tardive dyskinesia: * Thought to be related to home antipsychotic, on aripiprazole * Follows psych outpatient * Per neurology, his home gabapentin dosing was decreased from QID to TID as above and his home amantadine was discontinued on a previous admission (10) Microscopic hematuria: * On prior discharge, plan was for outpatient cystoscopy with urology. No UA RBCs seen on this admit (11) Anxiety with depression: * Chronic, stable * Continue home buspirone, effexor, ABilify * Trazodone held to avoid increased lethargy that he was having in the postop period (12) TERI (obstructive sleep apnea): * Has BiPAP but doesn't wear -- utilizes O2 via [place] -- continue while inpatient (13) Thrombocytopenia: * Stable, resolved * Seen by hematology in 2018, noted thrombocytopenia likely related to Hepatitis C (s/p blood transfusion) * Continue to monitor with CBC in the morning (14) Chronic viral hepatitis: * Secondary to blood transfusion. Hepatitis C (15) Elevated alkaline phosphatase level: * elevated at 181 and improved, was likely related to bony fracture * resolved (16) Thoracic compression fracture: * Has had numerous falls at the [facility] since last admission and complains of back pain * X-rays of thoracic and lumbar spine show a acute to subacute T12 burst fracture without retropulsion, new from 03/17/2020 without subluxation or acute fracture of lumbar spine * Ortho spine consulted -- Dr. Burnett recommends TLSO when out of bed and ambulating, no surgery for now * Continue lidocaine patch (17) Acute blood loss anemia: Hgb stable around 7.5 - 8 down from 11.8 preop Stable -Follow CBC periodically (18) Urinary hesitancy: Resolved, patient able to void Continue finasteride and tamsulosin (19) Hyponatremia: From a previous admission, improved with the addition of Lasix and sodium chloride tablets 1 g p.o. twice daily -Na+ 141 today -continue current meds follow BMP periodically (20) DVT prophylaxis: * SCDs * Lovenox x 4 weeks Dispo: awaiting placement, case management has multiple referrals out-has a bed now at [facility] but daughter declined this facility after review -will also need insurance authorization once has bed Check COVID-19 test today for placement Admission and Anticipated Discharge Date Admission Date: May 18, 2020 Subjective Pt reports having a lot of pain in the left hip after being OOB to chair all day long. No other concerns Review of Systems Review of Systems: All systems reviewed & are unremarkable except as noted in HPI & below Physical Exam Constitutional: WD/WN, vitals as above Eyes: + anicteric sclerae ENMT: external ear and nose normal, oropharynx normal (With frequent tongue thrusting) Neck: trachea midline, no thyromegaly Respiratory: normal respiratory effort, lungs clear to auscultation Cardiovascular: RRR, no murmur, no edema Chest (Breasts): Chest: normal inspection of chest Gastrointestinal (Abdomen): normal bowel sounds, soft, nontender, no hepatosplenomegaly Musculoskeletal: Extremities: + extremities abnormal to inspection (Left hip with dressing in place clean dry and intact), no cyanosis and no clubbing Skin: no rashes, warm and dry Neurologic: moves all extremities and awake; no focal motor deficits Psychiatric: A+Ox3, euthymic affect Lymphatic: no lymphedema Results & Data Results & Data ([facility]) Vital Signs (Past 12 Hours) Vital Signs Temp Pulse Resp BP Pulse Ox 05/29/20 07:53 36.8 C 90 18 169/68 H 94 Laboratory Results 05/29/20 05/29/20 05/29/20 Range/Units 12:09 08:22 06:04 WBC (4.8-10.8) K/uL RBC (4.7-6.1) M/uL Hgb (14.0-18.0) g/dL Hct (42-52) % MCV (80-100) fL MCH (25-34) pg MCHC (32-36) g/dL RDW Std Deviation (36.4-46.3) fL RDW Coeff of Ja (11.5-14.5) % Plt Count (130-400) K/uL MPV (7.4-10.4) fL Immature Gran % (Auto) % Neut % (Auto) % Lymph % (Auto) % [place] % (Auto) % Eos % (Auto) % Baso % (Auto) % Neut # (Auto) (1.4-6.5) K/uL Lymph # (Auto) (1.2-3.4) K/uL [place] # (Auto) (0.11-0.59) K/uL Eos # (Auto) (0-0.5) K/uL Baso # (Auto) (0-0.2) K/uL Immature Gran # (Auto) (0.00-0.02) K/uL RBC Morphology Sodium 141 (136-145) mmol/L Potassium 3.6 (3.5-5.1) mmol/L Chloride 107 (98-107) mmol/L Carbon Dioxide 29 (21-32) mmol/L Anion Gap 5.0 (3-11) BUN 12 (7-18) mg/dl Creatinine 0.72 (0.6-1.4) mg/dl Est Cr Clr Drug Dosing 96.7 ml/min Est GFR ( Amer) 102.8 Est GFR (Non-Af Amer) 88.7 BUN/Creatinine Ratio 16.2 (10-20) Glucose 94 (70-99) mg/dl POC Glucose 188 H 127 H (70-99) mg/dl Calcium 8.3 L (8.5-10.1) mg/dl 05/29/20 05/28/20 05/28/20 Range/Units 06:04 20:29 17:02 WBC 4.29 L (4.8-10.8) K/uL RBC 2.65 L (4.7-6.1) M/uL Hgb 7.9 L (14.0-18.0) g/dL Hct 24.2 L (42-52) % MCV 91.3 (80-100) fL MCH 29.8 (25-34) pg MCHC 32.6 (32-36) g/dL RDW Std Deviation 49.4 H (36.4-46.3) fL RDW Coeff of Ja 14.9 H (11.5-14.5) % Plt Count 137 (130-400) K/uL MPV 9.8 (7.4-10.4) fL Immature Gran % (Auto) 0.2 % Neut % (Auto) 71.1 % Lymph % (Auto) 20.5 % [place] % (Auto) 7.0 % Eos % (Auto) 1.2 % Baso % (Auto) 0.0 % Neut # (Auto) 3.05 (1.4-6.5) K/uL Lymph # (Auto) 0.88 L (1.2-3.4) K/uL [place] # (Auto) 0.30 (0.11-0.59) K/uL Eos # (Auto) 0.05 (0-0.5) K/uL Baso # (Auto) 0.00 (0-0.2) K/uL Immature Gran # (Auto) 0.01 (0.00-0.02) K/uL RBC Morphology Unremarkable Sodium (136-145) mmol/L Potassium (3.5-5.1) mmol/L Chloride (98-107) mmol/L Carbon Dioxide (21-32) mmol/L Anion Gap (3-11) BUN (7-18) mg/dl Creatinine (0.6-1.4) mg/dl Est Cr Clr Drug Dosing ml/min Est GFR ( Amer) Est GFR (Non-Af Amer) BUN/Creatinine Ratio (10-20) Glucose (70-99) mg/dl POC Glucose 213 H 158 H (70-99) mg/dl Calcium (8.5-10.1) mg/dl PG Care Time/CCT Total # of Minutes Spent Total Time Spent with Patient: Total time spent is greater than 50% in coordination of care (as documented) at patient's floor/unit and/or counseling patient: Coding Level of Care Code 15216 Subseq Hosp Care Lvl 1 Diagnoses Closed intertrochanteric fracture of left hip S72.142A Encounter type: initial encounter Fracture alignment: displaced Hypertension I10 Hyperlipidemia E78.5 CHF (congestive heart failure) I50.9 Heart failure chronicity: unspecified Heart failure type: unspecified Type 2 diabetes mellitus E11.9 Chronic respiratory failure with hypoxia J96.11 Mixed restrictive and obstructive lung disease J43.9; J98.4 Peripheral neuropathy G62.9 Tardive dyskinesia G24.01 Microscopic hematuria R31.29 Anxiety with depression F41.8 TERI (obstructive sleep apnea) G47.33 Thrombocytopenia D69.6 Chronic viral hepatitis B18.9 Elevated alkaline phosphatase level R74.8 Thoracic compression fracture S22.000A Acute blood loss anemia D62 Urinary hesitancy R39.11 Hyponatremia E87.1 DVT prophylaxis Z29.9 (1) Closed intertrochanteric fracture of left hip Encounter type: initial encounter Fracture alignment: displaced Qualified Code(s): S72.142A - Displaced intertrochanteric fracture of left femur, initial encounter for closed fracture (2) CHF (congestive heart failure) Heart failure chronicity: unspecified Heart failure type: unspecified Qualified Code(s): I50.9 - Heart failure, unspecified
[2020-05-29] MEDS: TAMSULOSIN HCL 0.4 MG CAP PO SCH (17:24)
[2020-05-29] MEDS: SIMVASTATIN 40 MG TAB PO SCH (21:49)
[2020-05-29] MEDS: AMLODIPINE BESYLATE 5 MG TAB PO SCH (21:50)
[2020-05-29] MEDS: ARIPiprazole 5 MG TAB PO SCH (21:50)
[2020-05-29] MEDS: INSULIN GLARGINE SOLOSTAR 100 UNITS/ML 3 ML PEN SC SCH (21:55)
[2020-05-30] MEDS: ACETAMINOPHEN 325 MG TAB PO SCH ×2 (08:14→12:20)
[2020-05-30] MEDS: CHOLECALCIFEROL 1,000 UNITS 25 MCG TAB PO SCH (08:14)
[2020-05-30] MEDS: CALCIUM 600MG + VIT D 400 IU TAB PO SCH (08:15)
[2020-05-30] MEDS: MAGNESIUM OXIDE 400 MG TAB PO SCH (08:15)
[2020-05-30] MEDS: VENLAFAXINE HCL XR 75 MG CAPXR PO SCH (08:15)
[2020-05-30] MEDS: SODIUM CHLORIDE 1 GM TABLET PO SCH (08:15)
[2020-05-30] MEDS: VITAMIN B COMPLEX TAB PO SCH (08:15)
[2020-05-30] MEDS: BusPIRone 15 MG TAB PO SCH (08:15)
[2020-05-30] MEDS: FUROSEMIDE 20 MG TAB PO SCH (08:16)
[2020-05-30] MEDS: DOCUSATE SODIUM 100 MG CAP PO SCH (08:16)
[2020-05-30] MEDS: SPIRONOLACTONE 25 MG TAB PO SCH (08:16)
[2020-05-30] MEDS: FINASTERIDE 5 MG TAB PO SCH (08:16)
[2020-05-30] MEDS: ASPIRIN 81 MG ECTAB PO SCH (08:16)
[2020-05-30] MEDS: GABAPENTIN 800 MG TAB PO SCH ×2 (08:16→12:20)
[2020-05-30] MEDS: LIDOCAINE 5% 1 PATCH TD SCH (08:17)
[2020-05-30] MEDS: POLYETHYLENE (MIRALAX) 17 GM PACK PO SCH (08:17)
[2020-05-30] MEDS: INSULIN ASPART 100 UNITS/ML 3 ML PEN SC SCH ×2 (08:31→12:38)
[2020-05-30] MEDS ORDERED: METFORMIN HCL 500 MG TAB PO SCH (09:30)
--- NOTE | 2020-05-30 11:53 | Discharge Summary ---
Date of Service May 30, 2020 Admission HPI Per Admitting Provider 79-year-old male with extensive past medical historyof multiple left rib fractures, sensory ataxia, mild tardive dyskinesia, contusion of spleen, alcoholic cirrhosis, diabetes type 2, opiate associated constipation, mixed obstructive and restrictive lung disease, chronic hypoxic respiratory failure, male hypogonadism, obstructive sleep apnea, microscopic hematuria, hypertension, hyperlipidemia, BPH, CHF, depression, anxiety, hepatitis C, osteoarthritis, diverticulitis, chronic kidney disease, diverticulitis, raynaud disease, pectus excavatum, hypertensive retinopathy, borderline open-angle glaucoma, gallstones, upper GI bleed. Presents from [facility] with complaints of hip pain after a fall out of his electric wheelchair earlier today. No prior history of hip fracture, orthopedic procedures to hip. Reportedly a front wheel fell off and patient fell forward onto his left side. This occurred around 3:30 PM. Pain described as sharp and constant, nonradiating. Patient attempted to roll around which exacerbated the pain. Severity 10 out of 10 on pain scale. Patient otherwise denies any numbness, tingling, chest pain, shortness of breath, fever, chills, nausea, vomiting, diarrhea, abdominal pain, recent travel or known sick contacts. Patient with no other acute concerns or complaints. Pertinent labs: Hemoglobin 12.9, platelets 96, sodium 135, glucose 155. Otherwise unremarkable CXR- No acute cardiopulmonary abnormality is seen. Hip/Pelvis XR- Intertrochanteric left femoral fracture ER course: IV acetaminophen 1 g, morphine 2 mg, morphine 4 mg, NSS 1 L Surgical history includes partial colectomy, EGD, right cataract surgery, orbital floor repair, sinus surgery Social history includes smoke cigars. Prior alcohol abuse. Lives at home alone normally. Coming from [facility]. Principal Diagnosis Left hip fracture status post ORIF Discharge Exam Constitutional WD/WN, vitals as above Eyes + anicteric sclerae ENMT external ear and nose normal, oropharynx normal (With frequent tongue thrusting) Neck trachea midline, no thyromegaly Respiratory normal respiratory effort, lungs clear to auscultation Cardiovascular RRR, no murmur, no edema Chest (Breasts) Chest: normal inspection of chest Gastrointestinal (Abdomen) normal bowel sounds, soft, nontender, no hepatosplenomegaly Musculoskeletal Extremities: + extremities abnormal to inspection (Left hip with dressing in place clean dry and intact, with mild surrounding edema of the hip and thigh), no cyanosis and no clubbing No calf edema or tenderness, negative Homans sign bilaterally, DESHAUN hose in place Skin no rashes, warm and dry Neurologic moves all extremities and awake; no focal motor deficits Psychiatric A+Ox3, euthymic affect Lymphatic no lymphedema Discharge Data Allergies Allergy/AdvReac Type Severity Reaction Status Date / Time cyclobenzaprine Allergy Severe COLLAPSE Verified 05/18/20 17:46 morphine Allergy Intermediate other Verified 05/18/20 17:46 lisinopril Allergy Mild UNKNOWN Verified 05/18/20 17:46 pioglitazone Allergy Mild UNKNOWN Verified 05/18/20 17:46 prochlorperazine Allergy Mild UNKNOWN Verified 05/18/20 17:46 carisoprodol [From Soma] Allergy Unknown ON [facility] Verified 05/18/20 17:46 LIST glimepiride Allergy Unknown Unknown Rxn Verified 05/18/20 17:46 lamotrigine [From Lamictal] Allergy Unknown [facility] LIST Verified 05/18/20 17:46 mirtazapine Allergy Unknown UNKNOWN Verified 05/18/20 17:46 olmesartan [From Benicar] Allergy Unknown ON [facility] Verified 05/18/20 17:46 LIST quetiapine [From Seroquel] Allergy Unknown ON [facility] Verified 05/18/20 17:46 LIST tamsulosin [From Flomax] Allergy Unknown [facility] LIST Verified 05/18/20 17:46 telmisartan [From Micardis] Allergy Unknown ON [facility] Verified 05/18/20 17:46 LIST Dyazide AdvReac Mild WEIGHT Verified 05/22/18 01:18 GAIN,DIZZINESS , FALLS hydrochlorothiazide AdvReac Mild WEIGHT Verified 05/18/20 17:46 GAIN,DIZZINESS , FALLS streptomycin AdvReac Mild REMOTE Verified 05/18/20 17:46 RXN, "TINGLING IN LEGS" DENIES SOB/RASH tazobactam AdvReac Mild REDNESS AT Verified 05/18/20 17:46 INJECTION SITE triamterene AdvReac Mild WEIGHT Verified 05/18/20 17:46 GAIN,DIZZINESS , FALLS propoxyphene AdvReac Unknown UNKNOWN Verified 05/18/20 17:46 Consultations 05/18/20 19:19 ED Decision to Admit Stat 07/03/20 23:18 Consult Case Management - Discharge Planning Routine Consult Orthopedic Surgery Stat 05/19/20 14:48 Consult Case Management - Discharge Planning Routine 05/20/20 16:40 Consult Orthopedic Surgery Routine 05/21/20 08:52 Consult Orthopedic Surgery Routine Procedures Performed Operation Date: 05/19/20 09:00 Actual Procedures p Left Hip Open Reduction Internal Fixation Dynamic Hip Screw(Left) - David Cherry MD Ordered Studies 05/19/20 FL fluoroscopy <1hr Routine FL hip LT 2-3V Routine 05/20/20 13:04 CT head/brain wo con Stat Chest x-ray Hip/pelvis x-ray Hip x-ray x3 KUB x-ray Thoracic spine x-ray Lumbar spine x-ray Hospital Course (1) Closed intertrochanteric fracture of left hip: 79-year-old male with extensive medical past medical history noted transferred via EMS from [facility] for reported fall out of wheelchair seen to have closed left hip fracture on imaging. Likely age-related osteoporotic fracture of the left femur insetting of chair height fall * Hip/Pelvis XR- Intertrochanteric left femoral fracture * Pain management with ANTHONY Tylenol-decreased the dose to 650 mg p.o. 3 times da treasure given history of chronic liver disease, continue tramadol PRN, and continue lidocaine patch to the back for pain * Ortho consulted-appreciate surgical management * s/p LEFT ORIF with Dr. Cherry 05/19 * PT/OT/DVT per orthopedics -- patient to have SCDs, DESHAUN hose, Lovenox x 4 week for DVT proph * For placement at rehab today (2) Hypertension: * Blood pressures are up slightly due to pain and now improved * Continue home amlodipine to 7.5mg HS, spironolactone 25 mg BID , Lasix 20 mg BID * control pain (3) Hyperlipidemia: * Chronic. Continue home simvastatin 40mg PO HS (4) CHF (congestive heart failure): * Chronic HFpEF, euvolemic at this time * ECHO March 2020 -- EF 55-60%, normal LVSF, no significant change since April 2019 * Continue home spironolactone, lasix (5) Type 2 diabetes mellitus: * Chronic. Last A1c 5.7 04/2020 * On glargine, lispro, metformin BID outpatient --continue as an outpatient and increase metformin 1000 twice daily (6) Chronic respiratory failure with hypoxia: * with mixed restrictive/obstructive lung disease --uses 3.5L O2 via [place] outpatient as needed, however he has not needed any oxygen for many days here * Follows with pulmonology Dr. Tomas as an outpatient (7) Mixed restrictive and obstructive lung disease: * See above (8) Peripheral neuropathy: * Chronic. Continue home Gabapentin 800mg TID (9) Tardive dyskinesia: * Thought to be related to home antipsychotic, on aripiprazole * Follows psych outpatient * Continue gabapentin 3 times daily (10) Microscopic hematuria: * On prior discharge, plan was for outpatient cystoscopy with urology. No UA RBCs seen on this admit (11) Anxiety with depression: * Chronic, stable * Continue home buspirone, effexor, ABilify * Trazodone discontinued to avoid increased lethargy that he was having in the postop period-he has slept well without it and we will permanently discontinue it (12) TERI (obstructive sleep apnea): * Has BiPAP at home that he pretty much never uses and does not tolerate (13) Thrombocytopenia: * Stable, resolved * Seen by hematology in 2018, noted thrombocytopenia likely related to Hepatitis C (s/p blood transfusion) * Continue to monitor with CBC in the morning (14) Chronic viral hepatitis: * Secondary to blood transfusion. Hepatitis C * Follows with SOCORRO Sorenson of [facility] gastroenterology as an outpatient (15) Elevated alkaline phosphatase level: * elevated at 181 and improved, was likely related to bony fracture * resolved (16) Thoracic compression fracture: * [facility] since [facility] and complains of back pain * X-rays of thoracic and lumbar spine show a acute to subacute T12 burst fracture without retropulsion, new from 03/17/2020 without subluxation or acute fracture of lumbar spine * Ortho spine consulted -- Dr. Burnett recommends TLSO when out of bed and ambulating, no surgery for now * Continue lidocaine patch (17) Acute blood loss anemia: Hgb stable at 7.9; was 11.8 preoperatively No bleeding from anywhere Stable for many days -Follow CBC in 1 week as an outpatient (18) Urinary hesitancy: Resolved, patient able to void Continue finasteride and tamsulosin (19) Hyponatremia: From a previous admission, improved with the addition of Lasix and sodium chloride tablets 1 g p.o. twice daily -Na+ 141 now and stable -continue current meds follow BMP periodically (20) DVT prophylaxis: * SCDs * Lovenox x 4 weeks-needs 17 more days of this at the time of discharge Dispo: Stable for discharge to [facility] Check COVID-19 test pending at the time of discharge, however he had a negative test on 05/19 Total Time Total Time Spent Total Time Spent (In Minutes): Greater than 30 minutes Total Time Includes: Examination of the Patient, Discharge Planning and Medication Reconciliation Discharge Plan Discharge Items Patient Disposition: Transfer Custodial Fac Reason For Visit: HIP FRACTURE Discharge Diagnosis: Left hip fracture Condition on Discharge: Good Activity: As commented below Lifting: None Bathing: Keep incision dry Bathing Comment: May shower tomorrow Sexual Activity: Wait until after follow-up appointment Exercise/Sports: Wait until after follow-up appointment Driving/Machine Use: No driving until cleared by integrated marketing specialist Weightbearing Comment: as tolerated with walker assistance Non-emergency contact: Primary Care Provider Call non-emergency contact if: you have any medication questions and your wound has increased drainage Follow-up/Referrals: Tristen Cantu [Primary Care Provider] - David Cherry MD [Physician] - (Please f/u with Dr. Cherry of Orthopedic Surgery within 1 week after discharge.) Diet: Regular Addtl Attending Provider Instructions: Post-operative Instructions Dear Patient and Family/Friends, Before you are discharged from the hospital, it is important to know what to expect when you get home after surgery. To that end, we have created this sheet of discharge instructions which covers many commonly asked questions. Make sure you go through this sheet in its entirety with your nurse before you are discharged. Please note that we will go over the specifics of your surgery and recovery when you return for your first post-operative visit. Sincerely, Dr. Cherry Pain Expect to be in a fair amount of pain after surgery. Remember, our goal is not to eliminate your pain, but to make it tolerable. It is a good idea to stay ahead of your pain by taking the medications you were prescribed once you get home. Typically, the pain starts improving 3-7 days after surgery. You should start weaning off the narcotic pain medication (oxycodone, hydrocodone, hydromorphone, morphine) as soon as your pain improves. Please call our office if your pain is not adequately controlled. Ice Ice your operative site at least 5 times a day for 15-30 minutes at a time. Make sure you have a thin cloth between the ice or cooling unit and your skin to prevent abdi bite. This is especially important if you received a nerve block. Continue icing your operative site for the first 5-7 days after surgery, then as needed. Diet/Nausea/Vomiting Start by drinking clear liquids and eating crackers. If you can tolerate this, then you may resume your normal diet. If you feel nauseated or vomit, take Zofran/ondansetron (if prescribed). Please call our office if you have intractable nausea or vomiting, or, if after hours, you may go to the Emergency Room for help. Constipation Constipation is a common side effect of narcotic pain medication. If you have not had a bowel movement within 2 days after surgery, we recommend purchasing an over the counter laxative such as Milk of Magnesia, Dulcolax, or Miralax from a local pharmacy, and taking it as instructed. Call our clinic if any questions. Weight bearing and Range of Motion. Do not bear any weight through your operative extremity immediately after surgery. If you had upper extremity surgery, do not lift anything with that arm. If you are in a knee brace, keep it locked in place until your follow-up. We will discuss your weight bearing, range of motion, and lifting restrictions in detail at your first post-operative appointment. Continuous Passive Motion (CPM) Machine If you were prescribed a CPM machine, it will start after your first post- operative appointment, at which time we will give you instructions on the range of motion settings and duration of treatment Physical therapy You will be given a prescription for physical therapy or occupational therapy at your first post-operative appointment. Typically, patients start therapy within 1 week of surgery Wound care and showering We will inspect your wound at your first post-operative visit, and may do a dressing change at that time. Most patients will be in a water-proof dressing that is removed 14 days after surgery. It is normal to see some dried blood on the dressing. Do not remove your dressing, paper strips or sutures yourself unless you are given permission. Showering is allowed the day after surgery. Do not scrub or remove any dressings. The wound should not be submerged underwater (i.e. in a bathtub or pool) until 4 weeks after surgery DESHAUN stockings If you were given white stockings, these are to be worn at all times except to shower (on both legs) for the first 2 weeks after surgery. Driving You may not drive while taking narcotic pain medication or while in a cast, splint, sling or brace. You, the patient, need to make the final determination about when you are safe to drive, however, the earliest you may consider driving after surgery is below: Hand/Wrist/Elbow Surgery: 3 days Shoulder Surgery: 2 weeks Hip,/Knee/Ankle Surgery: 4 weeks Fracture repair: 6 weeks Return to Work Your return to work depends on what surgery was done and what type of work you do. Please bring any paperwork your employer needs completed to your first post-operative visit. Also, bring a description of your job duties, as this helps us to understand what risks you may face at work. Travel Avoid long distance travel (greater than 1 hour) in airplanes and cars for the first 6 weeks after surgery. If you must travel, you need to have a Doppler ultrasound done before you travel to rule out a blood clot in your legs. Follow-up You should have a follow-up appointment already scheduled 1-2 days after surgery. If not, please contact our office to make this appointment before you leave the hospital. When to call the office It is normal to have swelling and bruising in the limb that was operated on. This will improve with time. It is also normal to have fevers for the first 2 days after surgery. Reasons you should call your doctor include: Uncontrolled pain; Nausea, vomiting, or constipation that does not improve with medication; Fevers over 101.5, chills, sweats; Drainage or bleeding from the wound; Foul odor; Spreading areas of redness; Any other concerns Addtl Inside Sales Engineer Provider Instructions: Please check CBC and BMP within 1 week. Hemoglobin was 7.9 the day prior to discharge. COVID-19 test was pending at the time of discharge and the result will be coming from [facility] on 05/31. He did however have a negative COVID- 19 test on 05/19. Pending Studies at Discharge: No Stand-Alone Forms: [facility] Skilled Items Patient informed of condition?: Yes DNR: No Discharge Level of Care: Skilled Communicable Disease: No Discharge Prognosis: Improving Lines: None Urinary Catheter: No Medications and DC Order Prescriptions: New enoxaparin 40 mg/0.4 mL Syringe 40 mg subcut Q24H 17 Days Qty: 6.8 RF: 0 tramadol 50 mg Tablet 50 mg PO Q4H PRN (Reason: pain) Qty: 10 RF: 0 Continued spironolactone [Aldactone] 25 mg tablet 25 mg PO BID RF: 0 simvastatin [Zocor] 40 mg tablet 40 mg PO PM@2029 RF: 0 buspirone 30 mg tablet 30 mg PO BID RF: 0 aspirin 81 mg tablet,chewable 81 mg PO QAM RF: 0 fluticasone propionate [Flonase Allergy Relief] 50 mcg/actuation spray,suspension 1 sprays INTNAS DAILY PRN (Reason: Nasal Congestion) RF: 0 B-complex with vitamin C capsule 1 cap PO QAM RF: 0 cholecalciferol (vitamin D3) 2,000 unit tablet 2,000 units PO QAM RF: 0 magnesium oxide 400 mg magnesium tablet 400 mg PO QAM RF: 0 calcium carbonate-vitamin D3 [Calcium 600 + D(3)] 600 mg(1,500mg) -400 unit Tablet 1 tab PO QAM RF: 0 finasteride 5 mg tablet 5 mg PO QAM RF: 0 polyethylene glycol 3350 17 gram Powder In Packet 17 g PO QAM RF: 0 bisacodyl 10 mg Suppository 10 mg KS DAILY PRN (Reason: Constipation) RF: 0 albuterol sulfate 90 mcg/actuation Hfa Aerosol Inhaler 2 puff INHALATION Q4H RF: 0 docusate sodium 100 mg Tablet 100 mg PO BID RF: 0 furosemide [Lasix] 20 mg tablet 20 mg PO BID Qty: 0 RF: 0 lidocaine 4 % Adhesive Patch,Medicated 1 patch TOPICAL DAILY RF: 0 sodium chloride 1 gram Tablet 1,000 mg PO BID RF: 0 tamsulosin 0.4 mg Capsule 0.4 mg PO DAILY@1630 RF: 0 insulin lispro [Humalog U-100 Insulin] 100 unit/mL Solution 1 sliding scale dose SUBCUT USEASDIRECTD PRN (Reason: blood sugar) RF: 0 venlafaxine 225 mg Tablet Extended Release 24hr 225 mg PO QAM RF: 0 amlodipine 5 mg tablet 7.5 mg PO PM@2030 RF: 0 gabapentin 800 mg tablet 800 mg PO TID RF: 0 aripiprazole [Abilify] 10 mg tablet 7.5 mg PO PM@2029 RF: 0 Changed metformin 500 mg Tablet 1,000 mg PO BID Qty: 0 RF: 0 acetaminophen [Tylenol] 325 mg Tablet 650 mg PO TID Qty: 0 RF: 0 Basaglar KwikPen U-100 Insulin 100 unit/mL (3 mL) insulin pen 20 unit SUBCUT PM@2029 Qty: 0 RF: 0 Discontinued trazodone 150 mg tablet 150 mg PO PM@2029 RF: 0 cyclobenzaprine 10 mg Tablet 10 mg PO BID RF: 0 Discharge Orders: Discharge Order (Routine); Ordered 05/30/20 Ordered By: Manasa Lemon Admission Data Admit Date/Time: 05/18/20 21:38 Attending Provider: Manasa Lemon Admit Provider: Mauricio Daniel Primary Care Provider: Tristen Cantu Other Providers: Tristen Cantu ; Mikel Elizabeth ; David Cherry ; Rosio Khalil ; Yair Mo Moultrie ; Axel Burnett Coding Level of Care Code D/C Day Management >30 mins Diagnoses Closed intertrochanteric fracture of left hip S72.142A Encounter type: initial encounter Fracture alignment: displaced Hypertension I10 Hyperlipidemia E78.5 CHF (congestive heart failure) I50.9 Heart failure chronicity: unspecified Heart failure type: unspecified Type 2 diabetes mellitus E11.9 Chronic respiratory failure with hypoxia J96.11 Mixed restrictive and obstructive lung disease J43.9; J98.4 Peripheral neuropathy G62.9 Tardive dyskinesia G24.01 Microscopic hematuria R31.29 Anxiety with depression F41.8 TERI (obstructive sleep apnea) G47.33 Thrombocytopenia D69.6 Chronic viral hepatitis B18.9 Elevated alkaline phosphatase level R74.8 Thoracic compression fracture S22.000A Acute blood loss anemia D62 Urinary hesitancy R39.11 Hyponatremia E87.1 DVT prophylaxis Z29.9
[2020-05-30] MEDS: TRAMADOL HCL 50 MG TABLET PO PRN (12:20)
== END 2020-05-30 13:29 | DRG 481 ==
LOC: ED 16:38 → 3N 21:38 → SUATTDRO 21:38 → 3N 22:20

== ENCOUNTER 2021-12-06 16:17 | Observation (INO) ==
[2021-12-06] MEDS ORDERED: SODIUM CHLORIDE 0.9% 1000ML 1,000 ML IV SCH (17:15)
--- NOTE | 2021-12-06 17:21 | XRay Report ---
XR chest 1V portable CLINICAL HISTORY: weakness COMPARISON STUDY: Chest CT May 22, 2018. Chest radiograph November 20, 2021. FINDINGS: Dual lead left subclavian pacemaker is in place. Postoperative findings within the anterior chest wall are noted. Old left-sided rib fractures are present. There is no pneumothorax or pleural effusion. Note is made of cardiomegaly without evidence for pulmonary edema. There is no consolidatio n. Multilevel vertebroplasty is noted. IMPRESSION: No acute cardiopulmonary findings. ACT 112: Negative or not required by law. Electronically signed by: Javed Cary M.D. 12/06/2021 5:20 PM
[2021-12-06 17:35] LABS: Basophils # (auto) 0.02 K/uL (0-0.2); Basophils % (auto) 0.2 %; Eosinophils # (auto) 0.01 K/uL (0-0.5); Eosinophils % (auto) 0.1 %; Hematocrit (blood only) 46.6 % (42-52); Hemoglobin 16.1 g/dL (14.0-18.0); Immature Granulocytes # (auto) 0.03 K/uL (0.00-0.02); Immature Granulocytes % (auto) 0.3 %; Lymphocytes # (auto) 0.71 K/uL (1.2-3.4); Lymphocytes % (auto) 7.6 %; Mean Corpuscular Hemoglobin 31.1 pg (25-34); Mean Corpuscular Hgb Conc 34.5 g/dL (32-36); Mean Platelet Volume 10.5 fL (7.4-10.4); Monocytes # (auto) 0.46 K/uL (0.11-0.59); Monocytes % (auto) 4.9 %; Neutrophils # (auto) 8.07 K/uL (1.4-6.5); Neutrophils % (auto) 86.9 %; Platelet Count 122 K/uL (130-400); RDW Coefficient of Variation 12.8 % (11.5-14.5); RDW Standard Deviation 41.9 fL (36.4-46.3); Red Blood Count 5.18 M/uL (4.7-6.1)
[2021-12-06 17:59] LABS: Troponin I < 0.03 ng/ml (0-0.04)
[2021-12-06 18:06] LABS: Alanine Aminotransferase 23 U/L (7-52); Albumin Globulin Ratio 1.5 (0.9-2); Albumin Level 4.3 gm/dl (3.4-5.0); Alkaline Phosphatase 83 U/L (34-104); Anion Gap 9 (3-11); Aspartate Aminotransferase 23 U/L (13-39); BUN Creatinine Ratio 33.8 (10-20); Bilirubin,Total 0.7 mg/dl (0.2-1.0); Blood Urea Nitrogen 25 mg/dl (6-23); Calcium 9.8 mg/dl (8.5-10.1); Carbon Dioxide 26 mmol/L (21-32); Chloride 100 mmol/L (98-107); Creatine Kinase 32 U/L (30-223); Creatinine Clr Calc Pharmacy 85.2 ml/min; Est GFR (African American) 100.3 ml/min; Est GFR (Non-African American) 86.5 ml/min; Globulin 2.8 gm/dl (2.5-4.0); Glucose 138 mg/dl (70-99(Fasting)); Potassium 4.6 mmol/L (3.5-5.1); Sodium 135 mmol/L (136-145); Total Protein 7.1 gm/dl (6.0-8.3)
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
--- NOTE | 2021-12-06 19:43 | CT Scan Report ---
CT OF THE HEAD WITHOUT CONTRAST CLINICAL HISTORY: generalized weakness COMPARISON STUDY: MRI of the brain April 05, 2020. Head CT May 20, 2020. CTA of the head April 06, 2020. CT DOSE: 614.27 mGy.cm TECHNIQUE: Helical axial images of the head were obtained without IV contrast. Automated exposure con trol was utilized for the study. A dose lowering technique was utilized adhering to the principles o f ALARA. FINDINGS: No acute intracranial hemorrhage, midline shift or mass effect is present. Ventricular dila tation is unchanged. Basal cisterns are patent. There are no extra axial collections. White matter hy podensities favor small vessel disease. Encephalomalacia within the posterior left parietal lobe is n oted. This is new since prior head CT of May 20, 2020 but is not acute. Note is made of a nondisplace d posterior right parietal skull fracture on axial image 109 of 120. This is age indeterminate but ne w since prior CTA of April 06, 2020. There is also a minimally displaced posterior left parietal calvar ial fracture shown on axial image 116. A nondisplaced occipital fracture shown on axial image 99. Old left orbital floor defect is present. IMPRESSION: 1. No acute intracranial findings. 2. Minimally displaced left posterior parietal calvarial fracture. Nondisplaced posterior right [place] and occipital fractures, as described above. These fractures are age indeterminate given the lack of overlying scalp swelling but new since CT of April 06, 2020. 3. Left posterior parietal encephalomalacia which is not acute. ACT 112: Negative or not required by law. Electronically signed by: Javed Cary M.D. 12/06/2021 7:42 PM
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
[2021-12-06] MEDS ORDERED: MELATONIN 3 MG TAB PO PRN (21:50)
[2021-12-06] MEDS ORDERED: GLUCOSE 10 TABS/TUBE PO PRN (21:57)
[2021-12-06] MEDS ORDERED: GLUCOSE 40% GEL 15 GM TUBE PO PRN (21:57)
[2021-12-06] MEDS ORDERED: GLUCAGON FOR INJ 1 MG VIAL SQ PRN (21:57)
[2021-12-06] MEDS ORDERED: CARBOHYDRATES FOR HYPOGLYCEMIA PO PRN (21:57)
[2021-12-06] MEDS ORDERED: DEXTROSE 50% 50 ML SYRINGE IV PRN (21:57)
[2021-12-06] MEDS: ARIPiprazole 15 MG TAB PO SCH (22:54)
[2021-12-06] MEDS: HEPARIN SOD 5,000 UNIT/0.5 ML VIAL SQ SCH (22:56)
[2021-12-06] MEDS: GABAPENTIN 300 MG CAP PO SCH (22:56)
--- NOTE | 2021-12-07 06:35 | CT Scan Report ---
CT SCAN OF THE CERVICAL SPINE CLINICAL HISTORY: Age indeterminant calvarial fractures. COMPARISON STUDY: CT of the cervical spine dated 10/23/2019. TECHNIQUE: CT scan of the cervical spine is performed from the skull base to the upper thoracic spine . Images are reviewed in the axial, sagittal, and coronal planes. IV contrast was not administered fo r this examination. A dose lowering technique was utilized adhering to the principles of ALARA. CT DOSE: 258.48 mGy.cm FINDINGS: Skeletal structures: The skeletal structures are osteopenic. There is no evidence of fracture or subl uxation involving the cervical spine. Vertebral body height and alignment are maintained. Small anter ior osteophytes are seen throughout. The odontoid process and lateral masses are intact. The atlantoa xial articulation is preserved noting productive degenerative change. The spinous processes appear in tact. Mild multilevel facet arthropathy is noted. Intervertebral discs: Moderate to advanced disc space narrowing is seen at C5-C6 and C6-C7. Mild disc space narrowing is noted at C7-T1. Central canal: Posterior disc osteophyte complexes at C5-C6 and C6-C7 may contribute to mild acquired compromise of the central canal. Soft tissues: The prevertebral and paraspinous soft tissues are within normal limits. Pacemaker leads are noted at the left thoracic inlet. There is mild atherosclerotic calcification of the carotid bul bs. Calvarium: The visualized calvarium at the skull base appears intact. Brain parenchyma: Partially visualized brain parenchyma at the skull base is within normal limits. Sinuses and mastoids: Mild mucosal thickening and chronic change is noted in the partially visualized left maxillary antrum. There is trace left mastoid effusion. The right mastoid air cells are well pn eumatized. Lung apices: Clear as visualized. IMPRESSION: There is no evidence of fracture or subluxation involving the cervical spine. ACT 112: Negative or not required by law. Electronically signed by: Darin Mcarthur M.D. 12/07/2021 6:33 AM
[2021-12-07 07:12] LABS: Appearance Urine Clear (Clear); Bilirubin Urine Negative (Negative); Blood Urine Negative (Negative); Color Urine Dark Yellow; Glucose Urine UA Negative (Negative); Ketones Urine Trace (Negative); Leukocyte Esterase Urine Negative (Negative); Nitrite Urine Negative (Negative); Protein Urine Negative (Negative); Specific Gravity Urine 1.022 (1.000-1.030); Urobilinogen Urine Negative (Negative); pH Urine 5.5 (4.5-7.5)
--- NOTE | 2021-12-07 07:41 | Electrocardiogram Report ---
Test Reason : Blood Pressure : / mmHG Vent. Rate : 080 BPM Atrial Rate : 080 BPM P-R Int : 250 ms QRS Dur : 162 ms QT Int : 432 ms P-R-T Axes : 054 126 020 degrees QTc Int : 498 ms Atrial-sensed ventricular-paced rhythm with prolonged AV conduction with occasional Premature ventric ular complexes Abnormal ECG When compared with ECG of 19-MAY-2020 08:39, Electronic ventricular pacemaker has replaced Sinus rhythm Confirmed by Guanako Krishnan ([id number]) on 12/07/2021 7:41:11 AM Referred By: REFERRED SELF Confirmed By:Joe Krishnan
[2021-12-07] MEDS: busPIRone 15 MG TAB PO SCH ×2 (08:34→18:45)
[2021-12-07] MEDS: amLODIPine BESYLATE 5 MG TAB PO SCH (08:35)
[2021-12-07] MEDS: ATORVASTATIN 20 MG TAB PO SCH (08:36)
[2021-12-07] MEDS: ASPIRIN 81 MG CHEW PO SCH (08:36)
[2021-12-07] MEDS: CHOLECALCIFEROL 1,000 UNITS 25 MCG TAB PO SCH (08:37)
[2021-12-07] MEDS: CALCIUM 600MG + VIT D 400 IU TAB PO SCH (08:37)
[2021-12-07] MEDS: GABAPENTIN 300 MG CAP PO SCH ×3 (08:38→20:23)
[2021-12-07] MEDS: FINASTERIDE 5 MG TAB PO SCH (08:38)
[2021-12-07] MEDS: CEROVITE ADV FORMULA TAB PO SCH (08:39)
[2021-12-07] MEDS: MIRABEGRON ER 25 MG TAB PO SCH (08:39)
[2021-12-07] MEDS: MAGNESIUM OXIDE 400 MG TAB PO SCH (08:39)
[2021-12-07] MEDS: INGREZZA 40 MG PO SCH (08:40)
[2021-12-07] MEDS: PANTOprazole 40 MG TAB PO SCH (08:42)
[2021-12-07] MEDS: VITAMIN B COMPLEX TAB PO SCH (08:51)
[2021-12-07] MEDS: INSULIN DETEMIR FLEXPEN/FLEX TOUCH 100 UNITS/ML 3ML SQ SCH (09:36)
[2021-12-07] MEDS: HEPARIN SOD 5,000 UNIT/0.5 ML VIAL SQ SCH ×2 (09:36→20:17)
--- NOTE | 2021-12-07 13:09 | Hospitalist Progress Note ---
Date of Service December 07, 2021 Assessment & Plan (1) Generalized weakness: (2) Skull fractures: Plan: 81 yo M w/ pMHx. of DM, HTN, HLD, BPH, anxiety, and depression presenting with weakness and poor oral intake. Weakness, deconditioning progressive over the last couple days prior to admission afebrile and no clear signs of infection possibly 2/2 medications vs. poor oral intake, no urinary symptoms - PT/OT ordered Skull fracture Age-indeterminate parietal and occipital skull fractures, new since March 2020 No signs of external injury to suggest recent trauma Cervical C-spine without con - no fracture or subluxation appreciated Hyperlipidemia - Continue atorvastatin 20 mg Hypertension - Continue amlodipine and aspirin - Hold furosemide, spironolactone and mag oxide Type 2 diabetes mellitus Decrease Levemir from 22 to 10 units subcu daily - Place on Accu-Cheks before meals and at bedtime with NovoLog coverage per scale Diabetic peripheral neuropathy Continue gabapentin Change 300/600/600 to 300/300/300 Anxiety with depression - For now, hold melatonin - Continue Mirtazapine, buspirone and aripiprazole Benign prostatic hyperplasia with urinary obstruction - Continue finasteride and mirabegron - Follow urine output Tardive dyskinesia - Continue Ingrezza DVT: heparin Code: full Diet: DM II (3) Hyperlipidemia: (4) Hypertension: (5) Type 2 diabetes mellitus: (6) Diabetic peripheral neuropathy: (7) Anxiety with depression: (8) Benign prostatic hyperplasia with urinary obstruction: (9) Tardive dyskinesia: (10) TERI (obstructive sleep apnea): (11) Cirrhosis, alcoholic: Admission and Anticipated Discharge Date Admission Date: December 06, 2021 Supervising Physician Co-Signing Physician Notes I personally examined the patient and verified all massey points of history and exam, discussed case, and agree with decision making with Dr Ram Feeling okay. Just weak. Notes that skull fractures are oldshe remembers that they have been there for a whilealthough he cannot really remember when they occurred. Vitals noted, in general he is awake and alert pleasant no distress. HEENT normocephalic atraumatic mucous membranes moist. Breathing unlabored no accessory muscle use good effort. Skin shows no rashes no pallor or icterus. Neuro without focal deficits. Weakness/deconditioningcontinue to follow, but no overt precipitating factorsuspect just weakness/deconditioning downward cyclePT/OT eval and treat, anticipate need for some type of rehab after discharge. Otherwise as above Subjective Guy Page is doing well today. He admits he continues to have weakness that brought him in, that started approximately 3 days ago. He denied any pain and had no questions or concerns for me today. Review of Systems Review of Systems: Constitutional: denies fevers, chills Cardiac: denies chest pain, palpitations GI: denies nausea, vomiting, diarrhea admits constipation (LBM 3 days prior) : denies frequency, urgency, pain Physical Exam Constitutional: comfortable; no acute distress Eyes: PERRL, conjunctivae normal, anicteric sclerae ENMT: external ear and nose normal, oropharynx normal Neck: normal visual inspection Respiratory: normal respiratory effort, lungs clear to auscultation Cardiovascular: RRR, no murmur, no edema Gastrointestinal (Abdomen): normal bowel sounds, soft, nontender, no hepatosplenomegaly Musculoskeletal: no cyanosis or clubbing, extremities motor strength 5/5 Skin: no rashes, warm and dry Neurologic: no focal motor deficits Speech / Cognition: normal speech Psychiatric: A+Ox3, euthymic affect Results & Data Results & Data ([facility]) Vital Signs (Past 12 Hours) Vital Signs Temp Pulse Resp BP Pulse Ox 12/07/21 07:47 36.4 C L 65 17 128/64 93 CBC Results Results Complete Blood Count Results: RBC 5.18 M/uL (4.7-6.1) 12/06/21 WBC 9.30 K/uL (4.8-10.8) 12/06/21 Hgb 16.1 g/dL (14.0-18.0) 12/06/21 Hct 46.6 % (42-52) 12/06/21 Plt Count 122 K/uL (130-400) L 12/06/21 Chemistry (BMP) Results BMP Results: 2 Sodium 135 mmol/L (136-145) L 12/06/21 Potassium 4.6 mmol/L (3.5-5.1) 12/06/21 Chloride 100 mmol/L (98-107) 12/06/21 Carbon Dioxide 26 mmol/L (21-32) 12/06/21 Anion Gap 9 (3-11) 12/06/21 BUN 25 mg/dl (6-23) H 12/06/21 Creatinine 0.74 mg/dl (0.6-1.4) 12/06/21 Glucose 138 mg/dl (70-99(Fasting)) H 12/06/21 Resident Activity Tracking Resident Involvement: Resident Care Provided Care Provided: Adult [facility]
[2021-12-07] MEDS: ACETAMINOPHEN 325 MG TAB PO SCH (13:38)
--- NOTE | 2021-12-07 17:52 | Billing Data ---
Date of Service December 07, 2021 Coding Level of Care Code 30361 Subseq Hosp Care Lvl 2
[2021-12-07] MEDS: POLYETHYLENE (MIRALAX) 17 GM PACK PO SCH (18:45)
[2021-12-07] MEDS: ARIPiprazole 15 MG TAB PO SCH (20:25)
[2021-12-07] MEDS: MIRTAZAPINE TAB 15 MG TAB PO SCH (20:31)
[2021-12-08 06:14] LABS: Hemoglobin 13.8 g/dL (14.0-18.0); Mean Corpuscular Hemoglobin 30.4 pg (25-34); Mean Corpuscular Hgb Conc 33.7 g/dL (32-36); Mean Corpuscular Volume 90.3 fL (80-100); RDW Coefficient of Variation 12.8 % (11.5-14.5); RDW Standard Deviation 42.1 fL (36.4-46.3); Red Blood Count 4.54 M/uL (4.7-6.1); White Blood Count 4.55 K/uL (4.8-10.8)
[2021-12-08 06:41] LABS: Albumin Globulin Ratio 1.5 (0.9-2); Albumin Level 3.6 gm/dl (3.4-5.0); BUN Creatinine Ratio 31.3 (10-20); Bilirubin,Total 0.6 mg/dl (0.2-1.0); Creatinine Clr Calc Pharmacy 99.1 ml/min; Est GFR (African American) 104.4 ml/min; Est GFR (Non-African American) 90.1 ml/min; Globulin 2.4 gm/dl (2.5-4.0); Potassium 3.9 mmol/L (3.5-5.1)
[2021-12-08 06:51] LABS: Mean Platelet Volume 10.5 fL (7.4-10.4); Platelet Count 84 K/uL (130-400)
[2021-12-08 06:53] LABS: Basophils # (auto) 0.01 K/uL (0-0.2); Basophils % (auto) 0.2 %; Eosinophils # (auto) 0.03 K/uL (0-0.5); Eosinophils % (auto) 0.7 %; Immature Granulocytes # (auto) 0.01 K/uL (0.00-0.02); Immature Granulocytes % (auto) 0.2 %; Lymphocytes # (auto) 1.01 K/uL (1.2-3.4); Lymphocytes % (auto) 22.2 %; Monocytes % (auto) 6.6 %; Neutrophils # (auto) 3.19 K/uL (1.4-6.5); Neutrophils % (auto) 70.1 %; Platelet Estimate Decreased (Normal)
--- NOTE | 2021-12-08 08:26 | Hospitalist Progress Note ---
Date of Service December 08, 2021 Assessment & Plan (1) Generalized weakness: Plan: 81 yo M w/ pMHx. of DM, HTN, HLD, BPH, anxiety, and depression presenting with weakness and poor oral intake. Weakness, deconditioning: -progressiveprior to admission -possibly 2/2 medications vs. poor oral intake, no urinary symptoms -PT/OT ordered Skull fracture: -Age-indeterminate parietal and occipital skull fractures, new since March 2020 -No signs of external injury to suggest recent trauma -Cervical C-spine without con - no fracture or subluxation appreciated -patient with no recollection of potential injuries Hyperlipidemia: -Continue atorvastatin 20 mg Hypertension: -Continue amlodipine and aspirin -Hold furosemide, spironolactone and mag oxide Type 2 diabetes mellitus: -Decrease Levemir from 22 to 10 units subcu daily -Place on Accu-Cheks before meals and at bedtime with NovoLog coverage per scale Diabetic peripheral neuropathy: -Continue gabapentin -Change 300/600/600 to 300/300/300 Anxiety with depression: -For now, hold melatonin -Continue Mirtazapine, buspirone and aripiprazole Benign prostatic hyperplasia with urinary obstruction: -Continue finasteride and mirabegron -Follow urine output Tardive dyskinesia: -Continue Ingrezza Diet: Carb consistent diet CODE STATUS: Full code DVT prophylaxis: heparin (2) Skull fractures: (3) Hyperlipidemia: (4) Hypertension: (5) Type 2 diabetes mellitus: (6) Diabetic peripheral neuropathy: (7) Anxiety with depression: (8) Benign prostatic hyperplasia with urinary obstruction: (9) Tardive dyskinesia: (10) TERI (obstructive sleep apnea): (11) Cirrhosis, alcoholic: Admission and Anticipated Discharge Date Admission Date: December 06, 2021 Supervising Physician Co-Signing Physician Notes I personally examined the patient and verified all massey points of history and exam, discussed case, and agree with decision making with Dr Trammell no new complaints. still weak. dtr called and informed nursing he was for video swallow tomorrow as outpt Vitals noted, in general he is awake and alert pleasant no distress. HEENT normocephalic atraumatic mucous membranes moist. Breathing unlabored no accessory muscle use good effort. Skin shows no rashes no pallor or icterus. Neuro without focal deficits. Weakness/deconditioning -no overt causes -suspect mostly frailty -PT and OT dysphagia -might contribute too -speech consult and treat -film: no infiltrate skull fractures -knows that they are old -does not remember when though -no bleeding on scans Otherwise as above Subjective Patient seen morning, no acute concerns. Working with physical therapy but continues to have difficulty and continued concerns regarding his weakness. Continues to have recollection of the events of his continued development of this weakness over time. Review of Systems Review of Systems: All systems reviewed & are unremarkable except as noted in Subjective Physical Exam Constitutional: comfortable; no acute distress Eyes: PERRL, conjunctivae normal, anicteric sclerae ENMT: external ear and nose normal, oropharynx normal Respiratory: normal respiratory effort, lungs clear to auscultation Cardiovascular: RRR, no murmur, no edema Musculoskeletal: no cyanosis or clubbing, extremities motor strength 5/5 Skin: no rashes, warm and dry Neurologic: no focal motor deficits Speech / Cognition: normal speech Psychiatric: A+Ox3, euthymic affect Results & Data Results & Data ([facility]) Vital Signs (Past 12 Hours) Vital Signs Temp Pulse Resp BP Pulse Ox 12/08/21 07:15 36.9 C 72 16 146/65 H 93 12/07/21 22:42 36.8 C 63 16 112/65 93 Laboratory Results 12/08/21 12/08/21 12/08/21 Range/Units 17:22 12:09 08:02 WBC (4.8-10.8) K/uL RBC (4.7-6.1) M/uL Hgb (14.0-18.0) g/dL Hct (42-52) % MCV (80-100) fL MCH (25-34) pg MCHC (32-36) g/dL RDW Std Deviation (36.4-46.3) fL RDW Coeff of Ja (11.5-14.5) % Plt Count (130-400) K/uL MPV (7.4-10.4) fL Immature Gran % (Auto) % Neut % (Auto) % Lymph % (Auto) % [place] % (Auto) % Eos % (Auto) % Baso % (Auto) % Neut # (Auto) (1.4-6.5) K/uL Lymph # (Auto) (1.2-3.4) K/uL [place] # (Auto) (0.11-0.59) K/uL Eos # (Auto) (0-0.5) K/uL Baso # (Auto) (0-0.2) K/uL Immature Gran # (Auto) (0.00-0.02) K/uL Platelet Estimate (Normal) Sodium (136-145) mmol/L Potassium (3.5-5.1) mmol/L Chloride (98-107) mmol/L Carbon Dioxide (21-32) mmol/L Anion Gap (3-11) BUN (6-23) mg/dl Creatinine (0.6-1.4) mg/dl Est Cr Clr Drug Dosing ml/min Est GFR ( Amer) ml/min Est GFR (Non-Af Amer) ml/min BUN/Creatinine Ratio (10-20) Glucose (70-99(Fasting)) mg/dl POC Glucose 107 H 119 H 102 H (70-99) mg/dl Calcium (8.5-10.1) mg/dl Total Bilirubin (0.2-1.0) mg/dl AST (13-39) U/L ALT (7-52) U/L Alkaline Phosphatase (34-104) U/L Total Protein (6.0-8.3) gm/dl Albumin (3.4-5.0) gm/dl Globulin (2.5-4.0) gm/dl Albumin/Globulin Ratio (0.9-2) 12/08/21 12/08/21 12/07/21 Range/Units 05:37 05:37 20:36 WBC 4.55 L (4.8-10.8) K/uL RBC 4.54 L (4.7-6.1) M/uL Hgb 13.8 L (14.0-18.0) g/dL Hct 41.0 L (42-52) % MCV 90.3 (80-100) fL MCH 30.4 (25-34) pg MCHC 33.7 (32-36) g/dL RDW Std Deviation 42.1 (36.4-46.3) fL RDW Coeff of Ja 12.8 (11.5-14.5) % Plt Count 84 L (130-400) K/uL MPV 10.5 H (7.4-10.4) fL Immature Gran % (Auto) 0.2 % Neut % (Auto) 70.1 % Lymph % (Auto) 22.2 % [place] % (Auto) 6.6 % Eos % (Auto) 0.7 % Baso % (Auto) 0.2 % Neut # (Auto) 3.19 (1.4-6.5) K/uL Lymph # (Auto) 1.01 L (1.2-3.4) K/uL [place] # (Auto) 0.30 (0.11-0.59) K/uL Eos # (Auto) 0.03 (0-0.5) K/uL Baso # (Auto) 0.01 (0-0.2) K/uL Immature Gran # (Auto) 0.01 (0.00-0.02) K/uL Platelet Estimate Decreased L (Normal) Sodium 131 L (136-145) mmol/L Potassium 3.9 (3.5-5.1) mmol/L Chloride 103 (98-107) mmol/L Carbon Dioxide 26 (21-32) mmol/L Anion Gap 2 L (3-11) BUN 21 (6-23) mg/dl Creatinine 0.67 (0.6-1.4) mg/dl Est Cr Clr Drug Dosing 99.1 ml/min Est GFR ( Amer) 104.4 ml/min Est GFR (Non-Af Amer) 90.1 ml/min BUN/Creatinine Ratio 31.3 H (10-20) Glucose 94 (70-99(Fasting)) mg/dl POC Glucose 168 H (70-99) mg/dl Calcium 9.0 (8.5-10.1) mg/dl Total Bilirubin 0.6 (0.2-1.0) mg/dl AST 17 (13-39) U/L ALT 19 (7-52) U/L Alkaline Phosphatase 69 (34-104) U/L Total Protein 6.0 (6.0-8.3) gm/dl Albumin 3.6 (3.4-5.0) gm/dl Globulin 2.4 L (2.5-4.0) gm/dl Albumin/Globulin Ratio 1.5 (0.9-2) Medications Administered Current Inpatient Medications Acetaminophen (Acetaminophen 325 Mg Tab) 650 mg PO QDL ANTHONY Stop: 01/06/22 11:29 Last Admin: 12/08/21 14:02 Dose: 650 mg Documented by: Amlodipine Besylate (Amlodipine Besylate 5 Mg Tab) 10 mg PO QAM [facility] Stop: 01/06/22 08:59 Last Admin: 12/08/21 10:15 Dose: 10 mg Documented by: Aripiprazole (Aripiprazole 15 Mg Tab) 7.5 mg PO HS [facility] Stop: 01/05/22 21:49 Last Admin: 12/07/21 20:25 Dose: 7.5 mg Documented by: Aspirin (Aspirin 81 Mg Chew) 81 mg PO QAM [facility] Stop: 01/06/22 08:59 Last Admin: 12/08/21 10:16 Dose: 81 mg Documented by: Atorvastatin Calcium (Atorvastatin 20 Mg Tab) [facility] [place] Stop: 01/06/22 08:59 Last Admin: 12/08/21 10:27 Dose: 20 mg Documented by: Buspirone HCl (Buspirone 15 Mg Tab) 30 mg PO BID@0830,1630 [facility] Stop: 01/06/22 08:29 Last Admin: 12/08/21 17:00 Dose: 30 mg Documented by: Dextrose (Dextrose 50% 50 Ml Syringe) 25 - 50 ml IV UD PRN; Protocol PRN Reason: Hypoglycemia Protocol Stop: 01/05/22 21:56 Finasteride (Finasteride 5 Mg Tab) 5 [facility] [place] Stop: 01/06/22 08:59 Last Admin: 12/08/21 10:17 Dose: 5 mg Documented by: Gabapentin (Gabapentin 300 Mg Cap) 300 mg PO TID [facility] Stop: 01/05/22 21:59 Last Admin: 12/08/21 14:06 Dose: 300 mg Documented by: Glucagon (Glucagon For Inj 1 Mg Vial) 1 mg SQ UD PRN; Protocol PRN Reason: Hypoglycemia Protocol Stop: 01/05/22 21:56 Glucose (Glucose 40% Gel 15 Gm Tube) 15 - 30 gm PO UD PRN; Protocol PRN Reason: Hypoglycemia Protocol Stop: 01/05/22 21:56 Glucose (Glucose 10 Tabs/Tube) 4 - 8 tabs PO UD PRN; Protocol PRN Reason: Hypoglycemia Protocol Stop: 01/05/22 21:56 Heparin Sodium (Porcine) (Heparin Sod 5,000 Unit/0.5 Ml Vial) 5,000 units SQ Q12 [facility] Stop: 01/05/22 21:59 Last Admin: 12/08/21 10:24 Dose: 5,000 units Documented by: Insulin Aspart (Insulin Aspart Per Unit) 0 units SC ACHS [facility] Stop: 01/07/22 07:29 Last Admin: 12/08/21 14:06 Dose: 2 units Documented by: Insulin Detemir (Insulin Detemir Flexpen/Flex Touch 100 Units/Ml 3ml) 10 units SQ DAILY [facility] Stop: 01/06/22 08:59 Last Admin: 12/08/21 10:32 Dose: 10 units Documented by: Magnesium Oxide (Magnesium Oxide 400 Mg Tab) 400 mg PO QAM [facility] Stop: 01/06/22 08:59 Last Admin: 12/08/21 10:18 Dose: 400 mg Documented by: Melatonin (Melatonin 3 Mg Tab) 6 mg PO HS PRN PRN Reason: Insomnia Stop: 01/05/22 21:49 Mirabegron (Mirabegron Er 25 Mg Tab) 50 mg PO DAILY [facility] Stop: 01/06/22 08:59 Last Admin: 12/08/21 10:18 Dose: 50 mg Documented by: Mirtazapine (Mirtazapine Tab 15 Mg Tab) 30 mg PO HS [facility] Stop: 01/06/22 20:59 Last Admin: 12/07/21 20:31 Dose: 30 mg Documented by: Miscellaneous (Carbohydrates For Hypoglycemia ) 15 - 30 gm PO UD PRN PRN Reason: Hypoglycemia Protocol Stop: 01/05/22 21:56 Multivitamins/Minerals (Calcium 600mg + Vit D 400 Iu Tab) 1 tab PO QAM [facility] Stop: 01/06/22 08:59 Last Admin: 12/08/21 10:16 Dose: 1 tab Documented by: Multivitamins/Minerals (Cerovite Adv Formula Tab) 1 tab PO QAM [facility] Stop: 01/06/22 08:59 Last Admin: 12/08/21 10:19 Dose: 1 tab Documented by: *Ingrezza 40 Mg*Non- Formulary Patient's Own Med 1 ea PO DAILY [facility]; Protocol Stop: 01/06/22 08:59 Last Admin: 12/08/21 10:19 Dose: 1 cap Documented by: Pantoprazole Sodium (Pantoprazole 40 Mg Tab) 40 mg PO QAM [facility] Stop: 01/06/22 08:59 Last Admin: 12/08/21 10:20 Dose: 40 mg Documented by: Polyethylene Glycol (Polyethylene (Miralax) 17 Gm Pack) 17 gm PO DAILY [facility] Stop: 01/06/22 16:14 Last Admin: 12/08/21 10:20 Dose: Not Given Documented by: Vitamin B Complex (Vitamin B Complex Tab) 1 tab [facility] [place] Stop: 01/06/22 08:59 Last Admin: 12/08/21 10:20 Dose: 1 tab Documented by: Vitamin D (Cholecalciferol 1,000 Units 25 Mcg Tab) 2,000 units PO QAM [facility] Stop: 01/06/22 08:59 Last Admin: 12/08/21 10:16 Dose: 2,000 units Documented by: Resident Activity Tracking Resident Involvement: Resident Care Provided Care Provided: Adult Hospital Medicine
[2021-12-08] MEDS: busPIRone 15 MG TAB PO SCH ×2 (10:14→17:00)
[2021-12-08] MEDS: amLODIPine BESYLATE 5 MG TAB PO SCH (10:15)
[2021-12-08] MEDS: CHOLECALCIFEROL 1,000 UNITS 25 MCG TAB PO SCH (10:16)
[2021-12-08] MEDS: ASPIRIN 81 MG CHEW PO SCH (10:16)
[2021-12-08] MEDS: CALCIUM 600MG + VIT D 400 IU TAB PO SCH (10:16)
[2021-12-08] MEDS: GABAPENTIN 300 MG CAP PO SCH ×3 (10:17→20:23)
[2021-12-08] MEDS: FINASTERIDE 5 MG TAB PO SCH (10:17)
[2021-12-08] MEDS: MAGNESIUM OXIDE 400 MG TAB PO SCH (10:18)
[2021-12-08] MEDS: MIRABEGRON ER 25 MG TAB PO SCH (10:18)
[2021-12-08] MEDS: CEROVITE ADV FORMULA TAB PO SCH (10:19)
[2021-12-08] MEDS: INGREZZA 40 MG PO SCH (10:19)
[2021-12-08] MEDS: PANTOprazole 40 MG TAB PO SCH (10:20)
[2021-12-08] MEDS: VITAMIN B COMPLEX TAB PO SCH (10:20)
[2021-12-08] MEDS: POLYETHYLENE (MIRALAX) 17 GM PACK PO SCH (10:20)
[2021-12-08] MEDS: HEPARIN SOD 5,000 UNIT/0.5 ML VIAL SQ SCH ×2 (10:24→20:21)
[2021-12-08] MEDS: INSULIN ASPART PER UNIT SC SCH ×4 (10:26→21:04)
[2021-12-08] MEDS: ATORVASTATIN 20 MG TAB PO SCH (10:27)
[2021-12-08] MEDS: INSULIN DETEMIR FLEXPEN/FLEX TOUCH 100 UNITS/ML 3ML SQ SCH (10:32)
[2021-12-08] MEDS: ACETAMINOPHEN 325 MG TAB PO SCH (14:02)
--- NOTE | 2021-12-08 16:04 | Billing Data ---
Date of Service December 08, 2021 Coding Level of Care Code 31123 Subseq Hosp Care Lvl 2
[2021-12-08] MEDS: MIRTAZAPINE TAB 15 MG TAB PO SCH (20:21)
[2021-12-08] MEDS: ARIPiprazole 15 MG TAB PO SCH (20:22)
[2021-12-08] MEDS ORDERED: POTASSIUM CHLORIDE PWD 20 MEQ PACK PO ONE (23:05)
[2021-12-08] MEDS ORDERED: FUROSEMIDE INJ 20 MG/2 ML VIAL IV STA (23:05)
--- NOTE | 2021-12-08 23:08 | Communication Note ---
Date of Service: December 08, 2021 Messaged about patient sounding coarse at R lung earlier in the evening. Per my assessment, bilat lower lung [place] have inspiratory crackles. 1 to 2+ BLE. No JVD. Patient's last echo 1 year ago was EF 55-60. He does state he has hx of chf and has been on lasix in past. Checking cxr since at increased risk of aspiration, though no other clinical signs of infection. Diuresing w/ lasix 20 IV x1. Ordering flutter valve and mucinex. Check BNP in AM. If positive, consider echo tomorrow.
--- NOTE | 2021-12-08 23:52 | XRay Report ---
XR chest 1V portable CLINICAL HISTORY: Difficulty breathing. Evaluate for aspiration pneumonitis.. COMPARISON STUDY: 12/06/2021 TECHNIQUE: 1 view of the chest FINDINGS: Single frontal view of the chest demonstrates the heart size to again be enlarged with pacer in place . The lungs are clear of alveolar opacities. There is no evidence for pleural effusion. There is no e vidence for vascular congestion. There is no acute osseous pathology. IMPRESSION: No acute cardiopulmonary disease. There is no evidence for aspiration pneumonitis. ACT 112: Negative or not required by law. Electronically signed by: Caio Landrum M.D. 12/08/2021 11:50 PM
--- NOTE | 2021-12-09 07:03 | Hospitalist Progress Note ---
Date of Service December 09, 2021 Assessment & Plan (1) Generalized weakness: Plan: 81yo male with DM2, HTN, HLD, BPH, anxiety, depression, and tardive dyskinesia presenting with weakness and poor oral intake. Weakness, deconditioning Progressive worsening prior to admission Differential includes polypharmacy, poor PO intake, general deconditioning PT/OT ordered CM has placed SNF referrals; continue to follow Skull fracture Age-indeterminate parietal and occipital skull fractures, new since March 2020 No signs of external injury to suggest recent trauma Cervical C-spine without con - no fracture or subluxation appreciated Patient with no recollection of potential injuries Hyperlipidemia Continue home atorvastatin Hypertension Continue amlodipine, ASA Holding lasix, spironolactone, magnesium oxide T2DM Decrease levemir from 22u to 10u SQ qd BSG ACHS, continue ISS Diabetic peripheral neuropathy Reducing gabapentin regimen from 300/600/600 to 300/300/300 Anxiety, depression Continue mirtazapine, buspirone, aripiprazole Benign prostatic hyperplasia with urinary obstruction Continue finasteride, mirabegron Follow urine output Tardive dyskinesia Continue ingrezza FEN: DM2 diet Code status: full code DVT ppx: heparin PT/OT: ordered Case management: following Dispo: med/surg (2) Skull fractures: (3) Hyperlipidemia: (4) Hypertension: (5) Type 2 diabetes mellitus: (6) Diabetic peripheral neuropathy: (7) Anxiety with depression: (8) Benign prostatic hyperplasia with urinary obstruction: (9) Tardive dyskinesia: (10) TERI (obstructive sleep apnea): (11) Cirrhosis, alcoholic: Admission and Anticipated Discharge Date Admission Date: December 06, 2021 Supervising Physician Co-Signing Physician Notes Patient seen and examined with PGY-2 Dr. Hernandez. Agree with history, exam findings, assessment, and plan of care as outlined. In brief, Mr. Page is an 81 year old male with hx of DM, HTN, HLD, BPH, anxiety/depression admitted with generalized weakness and decreased oral intake. No complaints today. VS and nursing notes reviewed. Well appearing. Not very talkative today. Multiple areas of ecchymosis over the bilateral arms. Labs and imaging reviewed. 1. Weakness/deconditioning. PT/OT. 2. Skull fracture. Age-indeterminantparietal and occipital fractures new since March 2020. CT cervical spine without fracture. 3. HLD/HTN. Continue home amlodipine and atorvastatin. Holding home Lasix, spironolactone, and mag oxide. 4. DM2. Levemir 10 daily + ssi. 5. Peripheral neuropathy 2/2 DM. decreased home gabapentin to 300 TID. 6. Anxiety and depression. Holding home melatonin. Continue mirtazapine, buspar, and aripiprazole. 7. BPH with hx of obstruction. Continue mirabegron and finasteride. 8. Thrombocytopenia. Chronic. Stable. Dispo: pending SNF placement. Subjective Patient seen and evaluated at bedside this morning. Overnight, patient was noted with crackles on lung auscultation, which resolved after lasix administration. Today, patient feels well, complaining only of fatigue which is relatively unchanged from yesterday. Denies pain at this time. Patient denies CP, SOB, abdominal pain, nausea, vomiting, and diarrhea. Review of Systems Review of Systems: See HPI Physical Exam Physical Exam: Constitutional: tired-appearing, laying in bed, no acute distress HEENT: NCAT, MMM CV: regular rhythm, no murmur appreciated, extremities well-perfused, no LE edema Resp: CTABL, no wheezes/rales/rhonchi appreciated, no increased work of breathing GI: soft, nondistended, nontender, BS normoactive MSK: no gross deformities appreciated Neuro: alert, oriented, no focal neurologic deficit appreciated Results & Data Results & Data ([facility]) Vital Signs (Past 12 Hours) Vital Signs Temp Pulse Resp BP Pulse Ox 12/08/21 23:05 36.5 C 68 17 113/56 L 93 12/08/21 21:41 75 93 Resident Activity Tracking Resident Involvement: Resident Care Provided Care Provided: Adult Hospital Medicine
[2021-12-09] MEDS: INGREZZA 40 MG PO SCH (07:44)
[2021-12-09] MEDS: HEPARIN SOD 5,000 UNIT/0.5 ML VIAL SQ SCH ×2 (07:45→21:28)
[2021-12-09] MEDS: MIRABEGRON ER 25 MG TAB PO SCH (07:46)
[2021-12-09] MEDS: ASPIRIN 81 MG CHEW PO SCH (07:46)
[2021-12-09] MEDS: ATORVASTATIN 20 MG TAB PO SCH (07:47)
[2021-12-09] MEDS: FINASTERIDE 5 MG TAB PO SCH (07:47)
[2021-12-09] MEDS: POLYETHYLENE (MIRALAX) 17 GM PACK PO SCH (07:47)
[2021-12-09] MEDS: amLODIPine BESYLATE 5 MG TAB PO SCH (07:47)
[2021-12-09] MEDS: CHOLECALCIFEROL 1,000 UNITS 25 MCG TAB PO SCH (07:47)
[2021-12-09] MEDS: guaiFENesin 600 MG TABCR PO SCH ×2 (07:47→21:27)
[2021-12-09] MEDS: MAGNESIUM OXIDE 400 MG TAB PO SCH (07:47)
[2021-12-09] MEDS: CEROVITE ADV FORMULA TAB PO SCH (07:47)
[2021-12-09] MEDS: GABAPENTIN 300 MG CAP PO SCH ×3 (07:47→21:29)
[2021-12-09] MEDS: busPIRone 15 MG TAB PO SCH ×2 (07:47→17:39)
[2021-12-09] MEDS: PANTOprazole 40 MG TAB PO SCH (07:47)
[2021-12-09] MEDS: VITAMIN B COMPLEX TAB PO SCH (07:47)
[2021-12-09] MEDS: CALCIUM 600MG + VIT D 400 IU TAB PO SCH (07:48)
[2021-12-09 07:56] LABS: Hematocrit (blood only) 41.5 % (42-52); Hemoglobin 14.4 g/dL (14.0-18.0); Mean Corpuscular Hgb Conc 34.7 g/dL (32-36); Mean Corpuscular Volume 89.4 fL (80-100); RDW Coefficient of Variation 12.8 % (11.5-14.5); RDW Standard Deviation 41.8 fL (36.4-46.3); Red Blood Count 4.64 M/uL (4.7-6.1); White Blood Count 5.15 K/uL (4.8-10.8)
[2021-12-09 07:59] LABS: Mean Platelet Volume 10.7 fL (7.4-10.4); Platelet Count 85 K/uL (130-400)
[2021-12-09 08:13] LABS: Basophils # (auto) 0.01 K/uL (0-0.2); Basophils % (auto) 0.2 %; Eosinophils # (auto) 0.04 K/uL (0-0.5); Eosinophils % (auto) 0.8 %; Immature Granulocytes # (auto) 0.01 K/uL (0.00-0.02); Immature Granulocytes % (auto) 0.2 %; Lymphocytes # (auto) 0.96 K/uL (1.2-3.4); Lymphocytes % (auto) 18.6 %; Monocytes # (auto) 0.37 K/uL (0.11-0.59); Monocytes % (auto) 7.2 %; Neutrophils # (auto) 3.76 K/uL (1.4-6.5)
[2021-12-09 08:33] LABS: Albumin Globulin Ratio 1.6 (0.9-2); Albumin Level 3.8 gm/dl (3.4-5.0); Bilirubin,Total 0.6 mg/dl (0.2-1.0); Calcium 9.2 mg/dl (8.5-10.1); Creatinine Clr Calc Pharmacy 89.7 ml/min; Est GFR (African American) 100.3 ml/min; Est GFR (Non-African American) 86.5 ml/min; Globulin 2.4 gm/dl (2.5-4.0); Potassium 4.2 mmol/L (3.5-5.1); Total Protein 6.2 gm/dl (6.0-8.3)
[2021-12-09] MEDS: INSULIN ASPART PER UNIT SC SCH ×4 (08:49→21:34)
[2021-12-09] MEDS: INSULIN DETEMIR FLEXPEN/FLEX TOUCH 100 UNITS/ML 3ML SQ SCH (08:50)
[2021-12-09] MEDS: ACETAMINOPHEN 325 MG TAB PO SCH (13:12)
[2021-12-09] MEDS: MIRTAZAPINE TAB 15 MG TAB PO SCH (21:27)
[2021-12-09] MEDS: ARIPiprazole 15 MG TAB PO SCH (21:28)
[2021-12-10 06:21] LABS: Hematocrit (blood only) 39.9 % (42-52); Hemoglobin 13.7 g/dL (14.0-18.0); Mean Corpuscular Hemoglobin 30.7 pg (25-34); Mean Corpuscular Hgb Conc 34.3 g/dL (32-36); Mean Corpuscular Volume 89.5 fL (80-100); RDW Coefficient of Variation 12.9 % (11.5-14.5); RDW Standard Deviation 41.6 fL (36.4-46.3); Red Blood Count 4.46 M/uL (4.7-6.1); White Blood Count 5.76 K/uL (4.8-10.8)
[2021-12-10 06:25] LABS: Mean Platelet Volume 10.7 fL (7.4-10.4); Platelet Count 83 K/uL (130-400)
[2021-12-10 06:53] LABS: Basophils # (auto) 0.01 K/uL (0-0.2); Basophils % (auto) 0.2 %; Eosinophils # (auto) 0.05 K/uL (0-0.5); Eosinophils % (auto) 0.9 %; Immature Granulocytes # (auto) 0.01 K/uL (0.00-0.02); Immature Granulocytes % (auto) 0.2 %; Lymphocytes # (auto) 0.85 K/uL (1.2-3.4); Lymphocytes % (auto) 14.8 %; Monocytes # (auto) 0.32 K/uL (0.11-0.59); Monocytes % (auto) 5.6 %; Neutrophils # (auto) 4.52 K/uL (1.4-6.5); Neutrophils % (auto) 78.3 %; RBC Morphology Unremarkable
[2021-12-10 07:06] LABS: Albumin Globulin Ratio 1.5 (0.9-2); Albumin Level 3.6 gm/dl (3.4-5.0); BUN Creatinine Ratio 30.6 (10-20); Bilirubin,Total 0.5 mg/dl (0.2-1.0); Calcium 9.1 mg/dl (8.5-10.1); Creatinine Clr Calc Pharmacy 107.1 ml/min; Est GFR (African American) 107.8 ml/min; Globulin 2.4 gm/dl (2.5-4.0)
[2021-12-10] MEDS: ASPIRIN 81 MG CHEW PO SCH (07:54)
[2021-12-10] MEDS: HEPARIN SOD 5,000 UNIT/0.5 ML VIAL SQ SCH ×2 (07:55→20:36)
[2021-12-10] MEDS: CALCIUM 600MG + VIT D 400 IU TAB PO SCH (07:56)
[2021-12-10] MEDS: PANTOprazole 40 MG TAB PO SCH (07:56)
[2021-12-10] MEDS: MAGNESIUM OXIDE 400 MG TAB PO SCH (07:56)
[2021-12-10] MEDS: ATORVASTATIN 20 MG TAB PO SCH (07:56)
[2021-12-10] MEDS: amLODIPine BESYLATE 5 MG TAB PO SCH (07:56)
[2021-12-10] MEDS: GABAPENTIN 300 MG CAP PO SCH ×3 (07:56→20:34)
[2021-12-10] MEDS: MIRABEGRON ER 25 MG TAB PO SCH (07:56)
[2021-12-10] MEDS: CHOLECALCIFEROL 1,000 UNITS 25 MCG TAB PO SCH (07:56)
[2021-12-10] MEDS: busPIRone 15 MG TAB PO SCH ×2 (07:56→18:24)
[2021-12-10] MEDS: VITAMIN B COMPLEX TAB PO SCH (07:56)
[2021-12-10] MEDS: FINASTERIDE 5 MG TAB PO SCH (07:56)
[2021-12-10] MEDS: CEROVITE ADV FORMULA TAB PO SCH (07:56)
[2021-12-10] MEDS: INGREZZA 40 MG PO SCH (07:57)
[2021-12-10] MEDS: guaiFENesin 600 MG TABCR PO SCH ×2 (07:57→20:32)
[2021-12-10] MEDS: POLYETHYLENE (MIRALAX) 17 GM PACK PO SCH (07:57)
[2021-12-10 08:03] LABS: Potassium 4.2 mmol/L (3.5-5.1)
--- NOTE | 2021-12-10 08:03 | Hospitalist Progress Note ---
Date of Service December 10, 2021 Assessment & Plan (1) Generalized weakness: Plan: 81yo male with DM2, HTN, HLD, BPH, anxiety, depression, and tardive dyskinesia presenting with weakness and poor oral intake. Weakness, deconditioning Progressive worsening prior to admission Differential includes polypharmacy, poor PO intake, general deconditioning PT/OT ordered CM has placed SNF referrals; continue to follow Possible bed availability at [facility] towards the end of this week Skull fracture Age-indeterminate parietal and occipital skull fractures, new since March 2020 No signs of external injury to suggest recent trauma Cervical C-spine without con - no fracture or subluxation appreciated Patient with no recollection of potential injuries Hyperlipidemia Continue home atorvastatin Hypertension Continue amlodipine, ASA Holding lasix, spironolactone, magnesium oxide T2DM Continue levemir 10u qd BSG ACHS, continue ISS Diabetic peripheral neuropathy Reducing gabapentin regimen from 300/600/600 to 300/300/300 Anxiety, depression Continue mirtazapine, buspirone, aripiprazole Benign prostatic hyperplasia with urinary obstruction Continue finasteride, mirabegron Follow urine output Tardive dyskinesia Continue ingrezza FEN: DM2 diet Code status: full code DVT ppx: heparin PT/OT: ordered Case management: following Dispo: med/surg (2) Skull fractures: (3) Hyperlipidemia: (4) Hypertension: (5) Type 2 diabetes mellitus: (6) Diabetic peripheral neuropathy: (7) Anxiety with depression: (8) Benign prostatic hyperplasia with urinary obstruction: (9) Tardive dyskinesia: (10) TERI (obstructive sleep apnea): (11) Cirrhosis, alcoholic: Admission and Anticipated Discharge Date Admission Date: December 06, 2021 Supervising Physician Co-Signing Physician Notes Patient seen and examined independently of PGY-2 Dr. Hernandez. Agree with history, exam findings, assessment, and plan of care as outlined. In brief, Mr. 81 year old male with hx of DM, HTN, HLD, BPH, anxiety/depression admitted with generalized weakness and decreased oral intake. No complaints today. VS and nursing notes reviewed. Well appearing. Not very talkative today. Multiple areas of ecchymosis over the bilateral arms. Labs and imaging reviewed. 1. Weakness/deconditioning. PT/OT. 2. Skull fracture. Age-indeterminantparietal and occipital fractures new since March 2020. CT cervical spine without fracture. 3. HLD/HTN. Continue home amlodipine and atorvastatin. Holding home Lasix, spironolactone, and mag oxide. 4. DM2. Levemir 10 daily + ssi. 5. Peripheral neuropathy 2/2 DM. decreased home gabapentin to 300 TID. 6. Anxiety and depression. Holding home melatonin. Continue mirtazapine, buspar, and aripiprazole. 7. BPH with hx of obstruction. Continue mirabegron and finasteride. 8. Thrombocytopenia. Chronic. Stable. Dispo: pending SNF placement. Subjective Patient seen and evaluated at bedside this morning. Patient feels "okay" today, complaining only of persistent fatigue. Patient denies CP, SOB, abdominal pain, nausea, vomiting, and diarrhea. Review of Systems Review of Systems: See HPI Physical Exam Physical Exam: Constitutional: laying in bed, no acute distress, sleepy HEENT: MMM CV: regular rhythm, no murmur appreciated, extremities well-perfused, no LE edema Resp: CTABL, no wheezes/rales/rhonchi appreciated, no increased work of breathing Neuro: alert, oriented, no focal neurologic deficit appreciated Results & Data Results & Data ([facility]) Vital Signs (Past 12 Hours) Vital Signs Temp Pulse Resp BP Pulse Ox 12/10/21 07:31 36.4 C L 77 16 149/83 H 95 12/10/21 00:05 36.9 C 82 18 122/64 92 Resident Activity Tracking Resident Involvement: Resident Care Provided Care Provided: Adult Hospital Medicine
[2021-12-10] MEDS: INSULIN ASPART PER UNIT SC SCH ×4 (08:38→21:46)
[2021-12-10] MEDS: INSULIN DETEMIR FLEXPEN/FLEX TOUCH 100 UNITS/ML 3ML SQ SCH (08:44)
[2021-12-10] MEDS: ACETAMINOPHEN 325 MG TAB PO SCH (13:18)
[2021-12-10] MEDS: ARIPiprazole 15 MG TAB PO SCH (20:33)
[2021-12-10] MEDS: MIRTAZAPINE TAB 15 MG TAB PO SCH (20:34)
--- NOTE | 2021-12-11 06:48 | Hospitalist Progress Note ---
Date of Service December 11, 2021 Assessment & Plan (1) Generalized weakness: Plan: 81yo male with DM2, HTN, HLD, BPH, anxiety, depression, and tardive dyskinesia presenting with weakness and poor oral intake. Weakness, deconditioning Progressive worsening prior to admission Differential includes polypharmacy, poor PO intake, general deconditioning PT/OT ordered CM has placed SNF referrals; continue to follow Possible bed availability at [facility] towards the end of this week Skull fracture Age-indeterminate parietal and occipital skull fractures, new since March 2020 No signs of external injury to suggest recent trauma Cervical C-spine without con - no fracture or subluxation appreciated Patient with no recollection of potential injuries Hyperlipidemia Continue home atorvastatin Hypertension Continue amlodipine, ASA Holding lasix, spironolactone, magnesium oxide T2DM Continue levemir 10u qd BSG ACHS, continue ISS Diabetic peripheral neuropathy Reducing gabapentin regimen from 300/600/600 to 300/300/300 Anxiety, depression Continue mirtazapine, buspirone, aripiprazole Benign prostatic hyperplasia with urinary obstruction Continue finasteride, mirabegron Follow urine output Tardive dyskinesia Continue ingrezza FEN: DM2 diet Code status: full code DVT ppx: heparin PT/OT: ordered Case management: following Dispo: med/surg (2) Skull fractures: (3) Hyperlipidemia: (4) Hypertension: (5) Type 2 diabetes mellitus: (6) Diabetic peripheral neuropathy: (7) Anxiety with depression: (8) Benign prostatic hyperplasia with urinary obstruction: (9) Tardive dyskinesia: (10) TERI (obstructive sleep apnea): (11) Cirrhosis, alcoholic: Admission and Anticipated Discharge Date Admission Date: December 06, 2021 Supervising Physician Co-Signing Physician Notes Patient seen and examined independently of PGY-2 Dr. Hernandez. Agree with history, exam findings, assessment, and plan of care as outlined. In brief, Mr. 81 year old male with hx of DM, HTN, HLD, BPH, anxiety/depression admitted with generalized weakness and decreased oral intake. No complaints today. VS and nursing notes reviewed. Well appearing. Not very talkative today. Multiple areas of ecchymosis over the bilateral arms. Labs and imaging reviewed. 1. Weakness/deconditioning. PT/OT. 2. Skull fracture. Age-indeterminantparietal and occipital fractures new since March 2020. CT cervical spine without fracture. 3. HLD/HTN. Continue home amlodipine and atorvastatin. Holding home Lasix, spironolactone, and mag oxide. 4. DM2. Levemir 10 daily + ssi. 5. Peripheral neuropathy 2/2 DM. decreased home gabapentin to 300 TID. 6. Anxiety and depression. Holding home melatonin. Continue mirtazapine, buspar, and aripiprazole. 7. BPH with hx of obstruction. Continue mirabegron and finasteride. 8. Thrombocytopenia. Chronic. Stable. Dispo: pending SNF placement. Subjective Patient seen and evaluated at bedside this morning. Patient feels fine today, notes his fatigue has improved a bit since yesterday. No new symptoms to report. Patient denies CP, SOB, abdominal pain, nausea, vomiting, and diarrhea. Review of Systems Review of Systems: See HPI Physical Exam Physical Exam: Constitutional: laying in bed, no acute distress HEENT: MMM CV: regular rhythm, no murmur appreciated, extremities well-perfused, no LE edema Resp: CTABL, no increased WOB Neuro: alert, oriented, no focal neurologic deficit appreciated Results & Data Results & Data ([facility]) Vital Signs (Past 12 Hours) Vital Signs Temp Pulse Resp BP Pulse Ox 12/11/21 00:09 36.8 C 68 18 126/72 93 Resident Activity Tracking Resident Involvement: Resident Care Provided Care Provided: Adult Hospital Medicine
[2021-12-11 07:31] LABS: Hematocrit (blood only) 40.1 % (42-52); Hemoglobin 13.6 g/dL (14.0-18.0); Mean Corpuscular Hemoglobin 30.2 pg (25-34); Mean Corpuscular Hgb Conc 33.9 g/dL (32-36); Mean Corpuscular Volume 89.1 fL (80-100); RDW Coefficient of Variation 12.8 % (11.5-14.5); RDW Standard Deviation 41.7 fL (36.4-46.3); White Blood Count 4.41 K/uL (4.8-10.8)
[2021-12-11 07:57] LABS: BUN Creatinine Ratio 26.7 (10-20); Creatinine Clr Calc Pharmacy 110.6 ml/min; Est GFR (African American) 109.3 ml/min; Est GFR (Non-African American) 94.3 ml/min; Potassium 3.9 mmol/L (3.5-5.1)
[2021-12-11 08:00] LABS: Mean Platelet Volume 11.3 fL (7.4-10.4); Platelet Count 82 K/uL (130-400)
[2021-12-11 08:03] LABS: Basophils # (auto) 0.01 K/uL (0-0.2); Basophils % (auto) 0.2 %; Eosinophils # (auto) 0.04 K/uL (0-0.5); Eosinophils % (auto) 0.9 %; Immature Granulocytes # (auto) 0.01 K/uL (0.00-0.02); Immature Granulocytes % (auto) 0.2 %; Lymphocytes # (auto) 0.85 K/uL (1.2-3.4); Lymphocytes % (auto) 19.3 %; Monocytes # (auto) 0.32 K/uL (0.11-0.59); Monocytes % (auto) 7.3 %; Neutrophils # (auto) 3.18 K/uL (1.4-6.5); Neutrophils % (auto) 72.1 %
[2021-12-11] MEDS: GABAPENTIN 300 MG CAP PO SCH ×3 (08:47→20:43)
[2021-12-11] MEDS: MAGNESIUM OXIDE 400 MG TAB PO SCH (08:47)
[2021-12-11] MEDS: ASPIRIN 81 MG CHEW PO SCH (08:47)
[2021-12-11] MEDS: ATORVASTATIN 20 MG TAB PO SCH (08:47)
[2021-12-11] MEDS: VITAMIN B COMPLEX TAB PO SCH (08:47)
[2021-12-11] MEDS: POLYETHYLENE (MIRALAX) 17 GM PACK PO SCH (08:47)
[2021-12-11] MEDS: CHOLECALCIFEROL 1,000 UNITS 25 MCG TAB PO SCH (08:47)
[2021-12-11] MEDS: PANTOprazole 40 MG TAB PO SCH (08:48)
[2021-12-11] MEDS: guaiFENesin 600 MG TABCR PO SCH ×2 (08:48→20:42)
[2021-12-11] MEDS: amLODIPine BESYLATE 5 MG TAB PO SCH (08:48)
[2021-12-11] MEDS: INGREZZA 40 MG PO SCH (08:48)
[2021-12-11] MEDS: CALCIUM 600MG + VIT D 400 IU TAB PO SCH (08:48)
[2021-12-11] MEDS: CEROVITE ADV FORMULA TAB PO SCH (08:48)
[2021-12-11] MEDS: MIRABEGRON ER 25 MG TAB PO SCH (08:48)
[2021-12-11] MEDS: busPIRone 15 MG TAB PO SCH ×2 (08:48→18:06)
[2021-12-11] MEDS: FINASTERIDE 5 MG TAB PO SCH (08:48)
[2021-12-11] MEDS: HEPARIN SOD 5,000 UNIT/0.5 ML VIAL SQ SCH ×2 (08:51→20:42)
[2021-12-11] MEDS: INSULIN DETEMIR FLEXPEN/FLEX TOUCH 100 UNITS/ML 3ML SQ SCH (08:51)
[2021-12-11] MEDS: INSULIN ASPART PER UNIT SC SCH ×4 (08:56→21:01)
[2021-12-11] MEDS: ACETAMINOPHEN 325 MG TAB PO SCH (12:59)
[2021-12-11] MEDS: MIRTAZAPINE TAB 15 MG TAB PO SCH (20:42)
[2021-12-11] MEDS: ARIPiprazole 15 MG TAB PO SCH (20:43)
--- NOTE | 2021-12-12 07:46 | Hospitalist Progress Note ---
Date of Service December 12, 2021 Assessment & Plan (1) Generalized weakness: Plan: 81yo male with DM2, HTN, HLD, BPH, anxiety, depression, and tardive dyskinesia presenting with weakness and poor oral intake. Weakness, deconditioning: - Progressive worsening prior to admission - Differential includes polypharmacy, poor PO intake, general deconditioning - PT/OT ordered - has placed SNF referrals; pending bed availability - started on Marinol 2.5mg daily to improve appetite Skull fracture: - Age-indeterminate parietal and occipital skull fractures, new since March 2020 - No signs of external injury to suggest recent trauma - Cervical C-spine without con - no fracture or subluxation appreciated - Patient with no recollection of potential injuries Hyperlipidemia: - Continue home atorvastatin Hypertension: - Continue amlodipine, ASA - Continue holding lasix, spironolactone, magnesium oxide T2DM: - Continue levemir 10u qd - BSG ACHS, continue sliding scale insulin Diabetic peripheral neuropathy: - continue reduced gabapentin regimen at 300mg/300mg/300mg Anxiety, depression: - Continue mirtazapine, buspirone, aripiprazole Benign prostatic hyperplasia with urinary obstruction: - Continue finasteride, mirabegron - Follow urine output Tardive dyskinesia: - Continue ingrezza FEN: DM2 diet Code status: full code DVT ppx: heparin PT/OT: ordered Case management: following Dispo: med/surg (2) Skull fractures: (3) Hyperlipidemia: (4) Hypertension: (5) Type 2 diabetes mellitus: (6) Diabetic peripheral neuropathy: (7) Anxiety with depression: (8) Benign prostatic hyperplasia with urinary obstruction: (9) Tardive dyskinesia: (10) TERI (obstructive sleep apnea): (11) Cirrhosis, alcoholic: Admission and Anticipated Discharge Date Admission Date: December 06, 2021 Supervising Physician Co-Signing Physician Notes Patient seen and examined with PGY-3 Dr. Trammell. Agree with history, exam findings, assessment, and plan of care as outlined. In brief, Mr. 81 year old male with hx of DM, HTN, HLD, BPH, anxiety/depression admitted with generalized weakness and decreased oral intake. Appetite continues to be low. Does not like eggs. VS and nursing notes reviewed. Well appearing. Not very talkative today. Multiple areas of ecchymosis over the bilateral arms. Labs and imaging reviewed. 1. Weakness/deconditioning. PT/OT. 2. Decreased appetite. Started Marinol. Continue mirtazapine. 3. Skull fracture. Age-indeterminantparietal and occipital fractures new since March 2020. CT cervical spine without fracture. 4. HLD/HTN. Continue home amlodipine and atorvastatin. Holding home Lasix, spironolactone, and mag oxide. 5. DM2. Levemir 10 daily + ssi. 6. Peripheral neuropathy 2/2 DM. decreased home gabapentin to 300 TID. 7. Anxiety and depression. Holding home melatonin. Continue mirtazapine, buspar, and aripiprazole. 8. BPH with hx of obstruction. Continue mirabegron and finasteride. 9. Thrombocytopenia. Chronic. Stable. Dispo: pending SNF placement. Subjective Patient seen while eating breakfast this morning. Endorses that his meal is good, and he feels hungry but every time he gets his meal he no longer feels hungry. Desires to not eat eggs for every meal all the time. Would be open to trying an appetite stimulant in order to better eat and get his strength up. Review of Systems Review of Systems: All systems reviewed & are unremarkable except as noted in Subjective Physical Exam Constitutional: comfortable; no acute distress Eyes: PERRL, conjunctivae normal, anicteric sclerae ENMT: external ear and nose normal, oropharynx normal Respiratory: normal respiratory effort, lungs clear to auscultation Cardiovascular: RRR, no murmur, no edema Gastrointestinal (Abdomen): normal bowel sounds, soft, nontender, no hepatosplenomegaly Percussion/Palpation: abdomen soft; abdomen nontender and no guarding Neurologic: no focal motor deficits Speech / Cognition: normal speech Psychiatric: A+Ox3, euthymic affect Results & Data Results & Data ([facility]) Vital Signs (Past 12 Hours) Vital Signs Temp Pulse Resp BP Pulse Ox 12/12/21 07:11 36.4 C L 72 16 145/72 H 96 12/11/21 23:44 36.7 C 65 18 124/66 92 Laboratory Results 12/12/21 12/12/21 12/11/21 Range/Units 06:34 06:34 20:36 WBC Pending RBC Pending Hgb Pending Hct Pending MCV Pending MCH Pending MCHC Pending Plt Count Pending (130-400) K/uL MPV (7.4-10.4) fL Immature Gran % (Auto) % Neut % (Auto) % Lymph % (Auto) % [place] % (Auto) % Eos % (Auto) % Baso % (Auto) % Neut # (Auto) (1.4-6.5) K/uL Lymph # (Auto) (1.2-3.4) K/uL [place] # (Auto) (0.11-0.59) K/uL Eos # (Auto) (0-0.5) K/uL Baso # (Auto) (0-0.2) K/uL Immature Gran # (Auto) (0.00-0.02) K/uL Sodium Pending (136-145) mmol/L Potassium Pending (3.5-5.1) mmol/L Chloride Pending (98-107) mmol/L Carbon Dioxide Pending (21-32) mmol/L Anion Gap Pending (3-11) BUN Pending (6-23) mg/dl Creatinine Pending (0.6-1.4) mg/dl Est Cr Clr Drug Dosing Pending ml/min Est GFR ( Amer) Pending ml/min Est GFR (Non-Af Amer) Pending ml/min BUN/Creatinine Ratio Pending (10-20) Glucose Pending (70-99(Fasting)) mg/dl POC Glucose 136 H (70-99) mg/dl Calcium Pending (8.5-10.1) mg/dl 12/11/21 12/11/21 12/11/21 Range/Units 17:10 12:06 08:04 WBC RBC Hgb Hct MCV MCH MCHC Plt Count (130-400) K/uL MPV (7.4-10.4) fL Immature Gran % (Auto) % Neut % (Auto) % Lymph % (Auto) % [place] % (Auto) % Eos % (Auto) % Baso % (Auto) % Neut # (Auto) (1.4-6.5) K/uL Lymph # (Auto) (1.2-3.4) K/uL [place] # (Auto) (0.11-0.59) K/uL Eos # (Auto) (0-0.5) K/uL Baso # (Auto) (0-0.2) K/uL Immature Gran # (Auto) (0.00-0.02) K/uL Sodium (136-145) mmol/L Potassium (3.5-5.1) mmol/L Chloride (98-107) mmol/L Carbon Dioxide (21-32) mmol/L Anion Gap (3-11) BUN (6-23) mg/dl Creatinine (0.6-1.4) mg/dl Est Cr Clr Drug Dosing ml/min Est GFR ( Amer) ml/min Est GFR (Non-Af Amer) ml/min BUN/Creatinine Ratio (10-20) Glucose (70-99(Fasting)) mg/dl POC Glucose 137 H 118 H 99 (70-99) mg/dl Calcium (8.5-10.1) mg/dl 12/11/21 12/11/21 Range/Units 06:25 06:25 WBC RBC Hgb Hct MCV MCH MCHC Plt Count 82 L (130-400) K/uL MPV 11.3 H (7.4-10.4) fL Immature Gran % (Auto) 0.2 % Neut % (Auto) 72.1 % Lymph % (Auto) 19.3 % [place] % (Auto) 7.3 % Eos % (Auto) 0.9 % Baso % (Auto) 0.2 % Neut # (Auto) 3.18 (1.4-6.5) K/uL Lymph # (Auto) 0.85 L (1.2-3.4) K/uL [place] # (Auto) 0.32 (0.11-0.59) K/uL Eos # (Auto) 0.04 (0-0.5) K/uL Baso # (Auto) 0.01 (0-0.2) K/uL Immature Gran # (Auto) 0.01 (0.00-0.02) K/uL Sodium 134 L (136-145) mmol/L Potassium 3.9 (3.5-5.1) mmol/L Chloride 101 (98-107) mmol/L Carbon Dioxide 28 (21-32) mmol/L Anion Gap 5 (3-11) BUN 16 (6-23) mg/dl Creatinine 0.60 (0.6-1.4) mg/dl Est Cr Clr Drug Dosing 110.6 ml/min Est GFR ( Amer) 109.3 ml/min Est GFR (Non-Af Amer) 94.3 ml/min BUN/Creatinine Ratio 26.7 H (10-20) Glucose 96 (70-99(Fasting)) mg/dl POC Glucose (70-99) mg/dl Calcium 9.0 (8.5-10.1) mg/dl Medications Administered Current Inpatient Medications Acetaminophen (Acetaminophen 325 Mg Tab) 650 mg PO QDL [facility] Stop: 01/06/22 11:29 Last Admin: 12/11/21 12:59 Dose: Not Given Documented by: Amlodipine Besylate (Amlodipine Besylate 5 Mg Tab) 10 mg PO QAM [facility] Stop: 01/06/22 08:59 Last Admin: 12/11/21 08:48 Dose: 10 mg Documented by: Aripiprazole (Aripiprazole 15 Mg Tab) 7.5 mg PO [facility] Stop: 01/05/22 21:49 Last Admin: 12/11/21 20:43 Dose: 7.5 mg Documented by: Aspirin (Aspirin 81 Mg Chew) [facility] [place] Stop: 01/06/22 08:59 Last Admin: 12/11/21 08:47 Dose: 81 mg Documented by: Atorvastatin Calcium (Atorvastatin 20 Mg Tab) 20 mg PO QAM [facility] Stop: 01/06/22 08:59 Last Admin: 12/11/21 08:47 Dose: 20 mg Documented by: Buspirone HCl (Buspirone 15 Mg Tab) 30 mg PO BID@0830,1630 [facility] Stop: 01/06/22 08:29 Last Admin: 12/11/21 18:06 Dose: 30 mg Documented by: Dextrose (Dextrose 50% 50 Ml Syringe) 25 - 50 ml IV UD PRN; Protocol PRN Reason: Hypoglycemia Protocol Stop: 01/05/22 21:56 Finasteride (Finasteride 5 Mg Tab) 5 mg PO QAM [facility] Stop: 01/06/22 08:59 Last Admin: 12/11/21 08:48 Dose: 5 mg Documented by: Gabapentin (Gabapentin 300 Mg Cap) 300 mg PO TID [facility] Stop: 01/05/22 21:59 Last Admin: 12/11/21 20:43 Dose: 300 mg Documented by: Glucagon (Glucagon For Inj 1 Mg Vial) 1 mg SQ UD PRN; Protocol PRN Reason: Hypoglycemia Protocol Stop: 01/05/22 21:56 Glucose (Glucose 40% Gel 15 Gm Tube) 15 - 30 gm PO UD PRN; Protocol PRN Reason: Hypoglycemia Protocol Stop: 01/05/22 21:56 Glucose (Glucose 10 Tabs/Tube) 4 - 8 tabs PO UD PRN; Protocol PRN Reason: Hypoglycemia Protocol Stop: 01/05/22 21:56 Guaifenesin (Guaifenesin 600 Mg Tabcr) 600 mg PO Q12 [facility] Stop: 01/08/22 08:59 Last Admin: 12/11/21 20:42 Dose: 600 mg Documented by: Heparin Sodium (Porcine) (Heparin Sod 5,000 Unit/0.5 Ml Vial) 5,000 units SQ Q12 [facility] Stop: 01/05/22 21:59 Last Admin: 12/11/21 20:42 Dose: 5,000 units Documented by: Insulin Aspart (Insulin Aspart Per Unit) 0 units SC ACHS [facility] Stop: 01/07/22 07:29 Last Admin: 12/11/21 21:01 Dose: Not Given Documented by: Insulin Detemir (Insulin Detemir Flexpen/Flex Touch 100 Units/Ml 3ml) 10 units SQ DAILY [facility] Stop: 01/06/22 08:59 Last Admin: 12/11/21 08:51 Dose: 10 units Documented by: Magnesium Oxide (Magnesium Oxide 400 Mg Tab) 400 mg PO QAM [facility] Stop: 01/06/22 08:59 Last Admin: 12/11/21 08:47 Dose: 400 mg Documented by: Melatonin (Melatonin 3 Mg Tab) 6 mg PO HS PRN PRN Reason: Insomnia Stop: 01/05/22 21:49 Mirabegron (Mirabegron Er 25 Mg Tab) 50 mg PO DAILY [facility] Stop: 01/06/22 08:59 Last Admin: 12/11/21 08:48 Dose: 50 mg Documented by: Mirtazapine (Mirtazapine Tab 15 Mg Tab) 30 mg PO HS [facility] Stop: 01/06/22 20:59 Last Admin: 12/11/21 20:42 Dose: 30 mg Documented by: Miscellaneous (Carbohydrates For Hypoglycemia ) 15 - 30 gm PO UD PRN PRN Reason: Hypoglycemia Protocol Stop: 01/05/22 21:56 Multivitamins/Minerals (Calcium 600mg + Vit D 400 Iu Tab) 1 tab PO QAM [facility] Stop: 01/06/22 08:59 Last Admin: 12/11/21 08:48 Dose: 1 tab Documented by: Multivitamins/Minerals (Cerovite Adv Formula Tab) 1 tab PO QAM [facility] Stop: 01/06/22 08:59 Last Admin: 12/11/21 08:48 Dose: 1 tab Documented by: *Ingrezza 40 Mg*Non- Formulary Patient's Own Med 1 ea PO DAILY [facility]; Protocol Stop: 01/06/22 08:59 Last Admin: 12/11/21 08:48 Dose: 1 cap Documented by: Pantoprazole Sodium (Pantoprazole 40 Mg Tab) 40 mg PO QAM [facility] Stop: 01/06/22 08:59 Last Admin: 12/11/21 08:48 Dose: 40 mg Documented by: Polyethylene Glycol (Polyethylene (Miralax) 17 Gm Pack) 17 gm PO DAILY [facility] Stop: 01/06/22 16:14 Last Admin: 12/11/21 08:47 Dose: 17 gm Documented by: Vitamin B Complex (Vitamin B Complex Tab) 1 tab PO QAM [facility] Stop: 01/06/22 08:59 Last Admin: 12/11/21 08:47 Dose: 1 tab Documented by: Vitamin D (Cholecalciferol 1,000 Units 25 Mcg Tab) 2,000 units PO QAM [facility] Stop: 01/06/22 08:59 Last Admin: 12/11/21 08:47 Dose: 2,000 units Documented by: Resident Activity Tracking Resident Involvement: Resident Care Provided Care Provided: Adult Hospital Medicine
[2021-12-12 07:48] LABS: Hematocrit (blood only) 40.3 % (42-52); Hemoglobin 13.8 g/dL (14.0-18.0); Mean Corpuscular Hemoglobin 30.9 pg (25-34); Mean Corpuscular Hgb Conc 34.2 g/dL (32-36); Mean Corpuscular Volume 90.2 fL (80-100); RDW Standard Deviation 43.2 fL (36.4-46.3); Red Blood Count 4.47 M/uL (4.7-6.1); White Blood Count 4.96 K/uL (4.8-10.8)
[2021-12-12 07:50] LABS: Mean Platelet Volume 11.8 fL (7.4-10.4); Platelet Count 86 K/uL (130-400)
[2021-12-12 08:11] LABS: Eosinophils # (auto) 0.02 K/uL (0-0.5); Eosinophils % (auto) 0.4 %; Lymphocytes # (auto) 0.64 K/uL (1.2-3.4); Lymphocytes % (auto) 12.9 %; Monocytes # (auto) 0.33 K/uL (0.11-0.59); Monocytes % (auto) 6.7 %; Neutrophils # (auto) 3.97 K/uL (1.4-6.5)
[2021-12-12 08:13] LABS: Calcium 9.1 mg/dl (8.5-10.1); Creatinine Clr Calc Pharmacy 110.6 ml/min; Est GFR (African American) 109.3 ml/min; Est GFR (Non-African American) 94.3 ml/min
[2021-12-12] MEDS: GABAPENTIN 300 MG CAP PO SCH ×3 (09:26→20:59)
[2021-12-12] MEDS: busPIRone 15 MG TAB PO SCH ×2 (09:27→17:50)
[2021-12-12] MEDS: PANTOprazole 40 MG TAB PO SCH (09:27)
[2021-12-12] MEDS: MAGNESIUM OXIDE 400 MG TAB PO SCH (09:27)
[2021-12-12] MEDS: HEPARIN SOD 5,000 UNIT/0.5 ML VIAL SQ SCH ×2 (09:27→20:59)
[2021-12-12] MEDS: FINASTERIDE 5 MG TAB PO SCH (09:28)
[2021-12-12] MEDS: guaiFENesin 600 MG TABCR PO SCH ×2 (09:28→20:59)
[2021-12-12] MEDS: INGREZZA 40 MG PO SCH (09:29)
[2021-12-12] MEDS: CHOLECALCIFEROL 1,000 UNITS 25 MCG TAB PO SCH (09:29)
[2021-12-12] MEDS: amLODIPine BESYLATE 5 MG TAB PO SCH (09:29)
[2021-12-12] MEDS: ASPIRIN 81 MG CHEW PO SCH (09:30)
[2021-12-12] MEDS: MIRABEGRON ER 25 MG TAB PO SCH (09:30)
[2021-12-12] MEDS: CALCIUM 600MG + VIT D 400 IU TAB PO SCH (09:30)
[2021-12-12] MEDS: ATORVASTATIN 20 MG TAB PO SCH (09:30)
[2021-12-12] MEDS: CEROVITE ADV FORMULA TAB PO SCH (09:30)
[2021-12-12] MEDS: VITAMIN B COMPLEX TAB PO SCH (09:31)
[2021-12-12] MEDS: POLYETHYLENE (MIRALAX) 17 GM PACK PO SCH ×2 (09:31→09:41)
[2021-12-12] MEDS: INSULIN ASPART PER UNIT SC SCH ×4 (09:42→21:00)
[2021-12-12] MEDS: INSULIN DETEMIR FLEXPEN/FLEX TOUCH 100 UNITS/ML 3ML SQ SCH (09:43)
[2021-12-12] MEDS: ACETAMINOPHEN 325 MG TAB PO SCH (11:45)
[2021-12-12] MEDS: ARIPiprazole 15 MG TAB PO SCH (20:58)
[2021-12-12] MEDS: MIRTAZAPINE TAB 15 MG TAB PO SCH (21:00)
--- NOTE | 2021-12-13 07:52 | Hospitalist Progress Note ---
Date of Service December 13, 2021 Assessment & Plan (1) Generalized weakness: Plan: 81 yo male with DM2, HTN, HLD, BPH, anxiety, depression, and tardive dyskinesia admitted with weakness and poor oral intake. Weakness, deconditioning, poor PO intake: - Progressive worsening prior to admission. - Differential includes polypharmacy, poor PO intake, general deconditioning. - No evidence of infection, metabolic encephalopathy, stroke this admission. - PT and OT recommended SNF; pending bed availability. Continue PT and OT while admitted. - Started on Marinol 2.5mg daily to improve appetite. With fairly good PO intake today. Skull fracture: - Age-indeterminate parietal and occipital skull fractures, new since March 2020. - No signs of external injury to suggest recent trauma. - Cervical C-spine without con - no fracture or subluxation appreciated. - Patient with no recollection of potential injuries, however on discussion with Dr. Gunderson injuries occurred over a year ago. Hyperlipidemia: - Continue home atorvastatin. Hypertension: - BP under good control on home amlodipine. - Continue aspirin. - Holding Lasix, spironolactone given hypotension. T2DM: - Continue Levemir 10u daily with sliding scale coverage. Diabetic peripheral neuropathy: - Continue gabapentin 300mg TID. Anxiety, depression: - Continue mirtazapine, buspirone, aripiprazole. Benign prostatic hyperplasia with urinary obstruction: - Continue finasteride, mirabegron. - Follow urine output. Tardive dyskinesia: - Continue Ingrezza. Code status: FULL CODE FEN: DM2 diet DVT ppx: heparin Dispo: med/surg (2) Skull fractures: (3) Hyperlipidemia: (4) Hypertension: (5) Type 2 diabetes mellitus: (6) Diabetic peripheral neuropathy: (7) Anxiety with depression: (8) Benign prostatic hyperplasia with urinary obstruction: (9) Tardive dyskinesia: (10) TERI (obstructive sleep apnea): (11) Cirrhosis, alcoholic: Admission and Anticipated Discharge Date Admission Date: December 06, 2021 Supervising Physician Co-Signing Physician Notes Attending attestation Pt seen and examined in concert with Dr. Garber. In agreement with the documented findings as noted in the resident documentation with any exceptions or additions as noted here. 81 year old male with hx of DM, HTN, HLD, BPH, anxiety/depression admitted with generalized weakness and decreased oral intake. Improving appetite and interaction without acute complaint of pain, SMITH, n/v On examination, S1/S2 nl RRR no MCG. CTAB. Abd NT/ND BS+ve. VS, nursing notes, labs and imaging reviewed. Weakness and deconditioning - PT/OT onboard, encourage continued engagement Decreased appetite - tolerating marinol with increased POI. Continue. Does not like eggs. HTN - holding furosemide, spironolactone and magnesium oxide Dispo: Pending SNF placement Else see resident documentation as noted. Subjective Patient without acute events overnight. Denies pain, shortness of breath, GI symptoms. Tolerated breakfast fairly well but does not like eggs. Review of Systems Review of Systems: All systems reviewed & are unremarkable except as noted in Subjective Physical Exam Physical Exam: Constitutional: laying in bed, no acute distress CV: regular rhythm, no murmur appreciated, extremities well-perfused, no LE edema Resp: clear to auscultation Neuro: alert, oriented, no focal neurologic deficit appreciated Results & Data Results & Data ([facility]) Vital Signs (Past 12 Hours) Vital Signs Temp Pulse Resp BP Pulse Ox 12/13/21 06:42 36.8 C 70 18 125/71 93 12/12/21 22:02 36.9 C 73 18 119/66 91 Resident Activity Tracking Resident Involvement: Resident Care Provided Care Provided: Adult Hospital Medicine
[2021-12-13] MEDS: busPIRone 15 MG TAB PO SCH ×2 (08:20→16:55)
[2021-12-13] MEDS: MIRABEGRON ER 25 MG TAB PO SCH (08:20)
[2021-12-13] MEDS: MAGNESIUM OXIDE 400 MG TAB PO SCH (08:20)
[2021-12-13] MEDS: HEPARIN SOD 5,000 UNIT/0.5 ML VIAL SQ SCH ×2 (08:21→21:19)
[2021-12-13] MEDS: INGREZZA 40 MG PO SCH (08:21)
[2021-12-13] MEDS: PANTOprazole 40 MG TAB PO SCH (08:21)
[2021-12-13] MEDS: VITAMIN B COMPLEX TAB PO SCH (08:22)
[2021-12-13] MEDS: CEROVITE ADV FORMULA TAB PO SCH (08:22)
[2021-12-13] MEDS: ATORVASTATIN 20 MG TAB PO SCH (08:22)
[2021-12-13] MEDS: CHOLECALCIFEROL 1,000 UNITS 25 MCG TAB PO SCH (08:22)
[2021-12-13] MEDS: guaiFENesin 600 MG TABCR PO SCH ×2 (08:22→21:19)
[2021-12-13] MEDS: ASPIRIN 81 MG CHEW PO SCH (08:23)
[2021-12-13] MEDS: CALCIUM 600MG + VIT D 400 IU TAB PO SCH (08:23)
[2021-12-13] MEDS: amLODIPine BESYLATE 5 MG TAB PO SCH (08:23)
[2021-12-13] MEDS: POLYETHYLENE (MIRALAX) 17 GM PACK PO SCH (08:24)
[2021-12-13] MEDS: FINASTERIDE 5 MG TAB PO SCH (08:24)
[2021-12-13] MEDS: GABAPENTIN 300 MG CAP PO SCH ×3 (08:24→21:17)
[2021-12-13] MEDS: INSULIN DETEMIR FLEXPEN/FLEX TOUCH 100 UNITS/ML 3ML SQ SCH (09:17)
[2021-12-13] MEDS: INSULIN ASPART PER UNIT SC SCH ×4 (09:22→21:18)
[2021-12-13] MEDS: ACETAMINOPHEN 325 MG TAB PO SCH ×2 (11:48→11:49)
[2021-12-13] MEDS: ARIPiprazole 15 MG TAB PO SCH (21:16)
[2021-12-13] MEDS: MIRTAZAPINE TAB 15 MG TAB PO SCH (21:17)
[2021-12-14] MEDS: MAGNESIUM OXIDE 400 MG TAB PO SCH (07:39)
[2021-12-14] MEDS: guaiFENesin 600 MG TABCR PO SCH ×2 (07:39→21:05)
[2021-12-14] MEDS: VITAMIN B COMPLEX TAB PO SCH (07:39)
[2021-12-14] MEDS: GABAPENTIN 300 MG CAP PO SCH ×3 (07:39→21:05)
[2021-12-14] MEDS: HEPARIN SOD 5,000 UNIT/0.5 ML VIAL SQ SCH ×2 (07:40→21:05)
[2021-12-14] MEDS: MIRABEGRON ER 25 MG TAB PO SCH (07:40)
[2021-12-14] MEDS: CEROVITE ADV FORMULA TAB PO SCH (07:40)
[2021-12-14] MEDS: ATORVASTATIN 20 MG TAB PO SCH (07:40)
[2021-12-14] MEDS: CALCIUM 600MG + VIT D 400 IU TAB PO SCH (07:41)
[2021-12-14] MEDS: amLODIPine BESYLATE 5 MG TAB PO SCH (07:41)
[2021-12-14] MEDS: INGREZZA 40 MG PO SCH (07:41)
[2021-12-14] MEDS: PANTOprazole 40 MG TAB PO SCH (07:41)
[2021-12-14] MEDS: FINASTERIDE 5 MG TAB PO SCH (07:42)
[2021-12-14] MEDS: ASPIRIN 81 MG CHEW PO SCH (07:42)
[2021-12-14] MEDS: CHOLECALCIFEROL 1,000 UNITS 25 MCG TAB PO SCH (07:42)
[2021-12-14] MEDS: busPIRone 15 MG TAB PO SCH ×2 (07:42→18:10)
--- NOTE | 2021-12-14 07:46 | Hospitalist Progress Note ---
Date of Service December 14, 2021 Assessment & Plan (1) Generalized weakness: Plan: 81 yo male with DM2, HTN, HLD, BPH, anxiety, depression, and tardive dyskinesia admitted with weakness and poor oral intake. Weakness, deconditioning, poor PO intake: Progressive worsening prior to admission. Differential includes polypharmacy, poor PO intake, general deconditioning. No evidence of infection, metabolic encephalopathy, stroke this admission. - PT and OT recommended SNF; -pending bed availability. -Continue PT and OT while admitted. - Started on Marinol 2.5mg daily to improve appetite. -Continues with fairly good PO intake today. -No A/E Skull fracture: Age-indeterminate parietal and occipital skull fractures, new since March 2020. Patient with no recollection of potential injuries, however on discussion with Dr. Gunderson injuries occurred over a year ago. - No signs of external injury to suggest recent trauma. - Cervical C-spine without con - no fracture or subluxation appreciated. Hyperlipidemia: - Continue home atorvastatin. Hypertension: - BP under good control on home amlodipine. - Continue aspirin. - Holding Lasix, spironolactone given hypotension. T2DM: - Continue Levemir 10u daily with sliding scale coverage. Diabetic peripheral neuropathy: - Continue gabapentin 300mg TID. Anxiety, depression: - Continue mirtazapine, buspirone, aripiprazole. Benign prostatic hyperplasia with urinary obstruction: - Continue finasteride, mirabegron. - Follow urine output. Tardive dyskinesia: - Continue Ingrezza. Code status: FULL CODE FEN: DM2 diet DVT ppx: heparin Dispo: med/surg (2) Skull fractures: (3) Hyperlipidemia: (4) Hypertension: (5) Type 2 diabetes mellitus: (6) Diabetic peripheral neuropathy: (7) Anxiety with depression: (8) Benign prostatic hyperplasia with urinary obstruction: (9) Tardive dyskinesia: (10) TERI (obstructive sleep apnea): (11) Cirrhosis, alcoholic: Admission and Anticipated Discharge Date Admission Date: December 06, 2021 Supervising Physician Co-Signing Physician Notes Attending attestation Pt seen and examined in concert with Dr. Garber. In agreement with the documented findings as noted in the resident documentation with any exceptions or additions as noted here. 81 year old male with hx of DM, HTN, HLD, BPH, anxiety/depression admitted with generalized weakness and decreased oral intake. Considerable improvement in appetite for breakfast this AM on marinol. No acute complaints at present. On examination, S1/S2 nl RRR no MCG. CTAB. Abd NT/ND BS+ve. VS, nursing notes, labs and imaging reviewed. Weakness and deconditioning - PT/OT onboard, encourage continued engagement Decreased appetite - continue Marinol and monitor POI. HTN - holding furosemide, spironolactone and magnesium oxide Dispo: Pending SNF placement Else see resident documentation as noted. Subjective Patient lying in bed this morning in no acute distress. Reports tolerating his diet, voiding and stooling. Encourage the patient to ambulate today and get out of bed into his chair. Patient verbalized understanding. Acute concerns related to disposition, pending placement to SNF. Physical Exam Physical Exam: General: Elderly gentleman lying in bed in no acute distress Cardiac: Regular rate and rhythm, normal S1, normal S2, I did not appreciated any significant murmurs rubs or gallops, I did not appreciate any significant pedal edema, No calf tenderness, capillary refill is less than 3 seconds Respiratory: Clear to auscultation bilaterally with symmetrical chest rise, I did not appreciate any significant wheezes, rales, rhonchi, no increased work of breathing GI: Normal bowel sounds, soft, nontender in all 4 quadrants, nondistended MSK: No sensory or motor changes, moves all extremities without issue, extremities are warm and well-perfused Skin: [place], clean, dry, intact. Neuro: Alert and oriented x4 Psych: Calm, cooperative, logical thought process Results & Data Results & Data ([facility]) Vital Signs (Past 12 Hours) Vital Signs Temp Pulse Resp BP Pulse Ox 12/13/21 23:30 36.5 C 64 20 107/62 91 Laboratory Results 12/13/21 12/13/21 12/13/21 Range/Units 20:31 17:02 11:56 POC Glucose 141 H 109 H 110 H (70-99) mg/dl 12/13/21 Range/Units 07:44 POC Glucose 111 H (70-99) mg/dl Medications Administered Current Inpatient Medications Acetaminophen (Acetaminophen 325 Mg Tab) 650 mg PO QDL [facility] Stop: 01/06/22 11:29 Last Admin: 12/13/21 11:49 Dose: Not Given Documented by: Amlodipine Besylate (Amlodipine Besylate 5 Mg Tab) 10 mg PO QAM [facility] Stop: 01/06/22 08:59 Last Admin: 12/13/21 08:23 Dose: 10 mg Documented by: Aripiprazole (Aripiprazole 15 Mg Tab) 7.5 mg PO HS [facility] Stop: 01/05/22 21:49 Last Admin: 12/13/21 21:16 Dose: 7.5 mg Documented by: Aspirin (Aspirin 81 Mg Chew) [facility] [place] Stop: 01/06/22 08:59 Last Admin: 12/13/21 08:23 Dose: 81 mg Documented by: Atorvastatin Calcium (Atorvastatin 20 Mg Tab) [facility] [place] Stop: 01/06/22 08:59 Last Admin: 12/13/21 08:22 Dose: 20 mg Documented by: Buspirone HCl (Buspirone 15 Mg Tab) 30 mg PO BID@0830,1630 [facility] Stop: 01/06/22 08:29 Last Admin: 12/13/21 16:55 Dose: 30 mg Documented by: Dextrose (Dextrose 50% 50 Ml Syringe) 25 - 50 ml IV UD PRN; Protocol PRN Reason: Hypoglycemia Protocol Stop: 01/05/22 21:56 Dronabinol (Dronabinol 2.5 Mg Cap) 2.5 mg PO DAILY [facility] Stop: 01/12/22 08:59 Last Admin: 12/13/21 09:17 Dose: 2.5 mg Documented by: Finasteride (Finasteride 5 Mg Tab) 5 mg PO QAM [facility] Stop: 01/06/22 08:59 Last Admin: 12/13/21 08:24 Dose: 5 mg Documented by: Gabapentin (Gabapentin 300 Mg Cap) 300 mg PO TID [facility] Stop: 01/05/22 21:59 Last Admin: 12/13/21 21:17 Dose: 300 mg Documented by: Glucagon (Glucagon For Inj 1 Mg Vial) 1 mg SQ UD PRN; Protocol PRN Reason: Hypoglycemia Protocol Stop: 01/05/22 21:56 Glucose (Glucose 40% Gel 15 Gm Tube) 15 - 30 gm PO UD PRN; Protocol PRN Reason: Hypoglycemia Protocol Stop: 01/05/22 21:56 Glucose (Glucose 10 Tabs/Tube) 4 - 8 tabs PO UD PRN; Protocol PRN Reason: Hypoglycemia Protocol Stop: 01/05/22 21:56 Guaifenesin (Guaifenesin 600 Mg Tabcr) 600 mg PO Q12 [facility] Stop: 01/08/22 08:59 Last Admin: 12/13/21 21:19 Dose: 600 mg Documented by: Heparin Sodium (Porcine) (Heparin Sod 5,000 Unit/0.5 Ml Vial) 5,000 units SQ Q12 [facility] Stop: 01/05/22 21:59 Last Admin: 12/13/21 21:19 Dose: 5,000 units Documented by: Insulin Aspart (Insulin Aspart Per Unit) 0 units SC ACHS [facility] Stop: 01/07/22 07:29 Last Admin: 12/13/21 21:18 Dose: 1 units Documented by: Insulin Detemir (Insulin Detemir Flexpen/Flex Touch 100 Units/Ml 3ml) 10 units SQ DAILY [facility] Stop: 01/06/22 08:59 Last Admin: 12/13/21 09:17 Dose: 10 units Documented by: Magnesium Oxide (Magnesium Oxide 400 Mg Tab) 400 mg PO QAM [facility] Stop: 01/06/22 08:59 Last Admin: 12/13/21 08:20 Dose: 400 mg Documented by: Melatonin (Melatonin 3 Mg Tab) 6 mg PO HS PRN PRN Reason: Insomnia Stop: 01/05/22 21:49 Mirabegron (Mirabegron Er 25 Mg Tab) 50 mg PO DAILY [facility] Stop: 01/06/22 08:59 Last Admin: 12/13/21 08:20 Dose: 50 mg Documented by: Mirtazapine (Mirtazapine Tab 15 Mg Tab) 30 mg PO HS [facility] Stop: 01/06/22 20:59 Last Admin: 12/13/21 21:17 Dose: 30 mg Documented by: Miscellaneous (Carbohydrates For Hypoglycemia ) 15 - 30 gm PO UD PRN PRN Reason: Hypoglycemia Protocol Stop: 01/05/22 21:56 Multivitamins/Minerals (Calcium 600mg + Vit D 400 Iu Tab) 1 tab PO QAM [facility] Stop: 01/06/22 08:59 Last Admin: 12/13/21 08:23 Dose: 1 tab Documented by: Multivitamins/Minerals (Cerovite Adv Formula Tab) 1 tab PO QAM [facility] Stop: 01/06/22 08:59 Last Admin: 12/13/21 08:22 Dose: 1 tab Documented by: *Ingrezza 40 Mg*Non- Formulary Patient's Own Med 1 ea PO DAILY [facility]; Protocol Stop: 01/06/22 08:59 Last Admin: 12/13/21 08:21 Dose: 1 cap Documented by: Pantoprazole Sodium (Pantoprazole 40 Mg Tab) 40 mg PO QAM [facility] Stop: 01/06/22 08:59 Last Admin: 12/13/21 08:21 Dose: 40 mg Documented by: Polyethylene Glycol (Polyethylene (Miralax) 17 Gm Pack) 17 gm PO DAILY [facility] Stop: 01/06/22 16:14 Last Admin: 12/13/21 08:24 Dose: 17 gm Documented by: Vitamin B Complex (Vitamin B Complex Tab) 1 tab PO QAM [facility] Stop: 01/06/22 08:59 Last Admin: 12/13/21 08:22 Dose: 1 tab Documented by: Vitamin D (Cholecalciferol 1,000 Units 25 Mcg Tab) 2,000 units PO QAM [facility] Stop: 01/06/22 08:59 Last Admin: 12/13/21 08:22 Dose: 2,000 units Documented by:
[2021-12-14] MEDS: POLYETHYLENE (MIRALAX) 17 GM PACK PO SCH (07:50)
[2021-12-14] MEDS: INSULIN ASPART PER UNIT SC SCH ×4 (09:05→21:06)
[2021-12-14] MEDS: INSULIN DETEMIR FLEXPEN/FLEX TOUCH 100 UNITS/ML 3ML SQ SCH (09:39)
[2021-12-14] MEDS: ACETAMINOPHEN 325 MG TAB PO SCH (12:32)
[2021-12-14] MEDS: ARIPiprazole 15 MG TAB PO SCH (21:04)
[2021-12-14] MEDS: MIRTAZAPINE TAB 15 MG TAB PO SCH (21:05)
[2021-12-15] MEDS: ASPIRIN 81 MG CHEW PO SCH (07:31)
[2021-12-15] MEDS: CEROVITE ADV FORMULA TAB PO SCH (07:31)
[2021-12-15] MEDS: PANTOprazole 40 MG TAB PO SCH (07:31)
[2021-12-15] MEDS: CALCIUM 600MG + VIT D 400 IU TAB PO SCH (07:32)
[2021-12-15] MEDS: ATORVASTATIN 20 MG TAB PO SCH (07:32)
[2021-12-15] MEDS: CHOLECALCIFEROL 1,000 UNITS 25 MCG TAB PO SCH (07:32)
[2021-12-15] MEDS: MAGNESIUM OXIDE 400 MG TAB PO SCH (07:32)
[2021-12-15] MEDS: MIRABEGRON ER 25 MG TAB PO SCH (07:33)
[2021-12-15] MEDS: amLODIPine BESYLATE 5 MG TAB PO SCH (07:34)
[2021-12-15] MEDS: VITAMIN B COMPLEX TAB PO SCH (07:34)
[2021-12-15] MEDS: FINASTERIDE 5 MG TAB PO SCH (07:35)
[2021-12-15] MEDS: busPIRone 15 MG TAB PO SCH ×2 (07:35→17:29)
[2021-12-15] MEDS: GABAPENTIN 300 MG CAP PO SCH ×3 (07:36→21:07)
[2021-12-15] MEDS: guaiFENesin 600 MG TABCR PO SCH ×2 (07:36→21:07)
[2021-12-15] MEDS: HEPARIN SOD 5,000 UNIT/0.5 ML VIAL SQ SCH ×2 (07:36→21:08)
[2021-12-15] MEDS: INGREZZA 40 MG PO SCH (07:37)
[2021-12-15] MEDS: POLYETHYLENE (MIRALAX) 17 GM PACK PO SCH (07:39)
--- NOTE | 2021-12-15 08:15 | Hospitalist Progress Note ---
Date of Service December 15, 2021 Assessment & Plan (1) Generalized weakness: Plan: 81 yo male with DM2, HTN, HLD, BPH, anxiety, depression, and tardive dyskinesia admitted with weakness and poor oral intake. Weakness, deconditioning, poor PO intake: Progressive worsening prior to admission. Differential includes polypharmacy, poor PO intake, general deconditioning. No evidence of infection, metabolic encephalopathy, stroke this admission. - PT and OT recommended SNF; -CM assisting. -Continue PT and OT while admitted. - Started on Marinol 2.5mg daily to improve appetite. -Continues with good PO intake today. -No A/E Skull fracture: Age-indeterminate parietal and occipital skull fractures, new since March 2020. Patient with no recollection of potential injuries, however on discussion with Dr. Gunderson injuries occurred over a year ago. - No signs of external injury to suggest recent trauma. - Cervical C-spine without con - no fracture or subluxation appreciated. Bibasilar rhonchi Likely secondary to atelectasis, encourage the patient to get up and ambulate. Patient has flutter valve and incentive spirometer at the bedside. Recommending the patient use these on an hourly basis. -To consider chest x-ray tomorrow based on physical exam findings Hyperlipidemia: - Continue home atorvastatin. Hypertension: - BP under good control on home amlodipine. - Continue aspirin. - Holding Lasix, spironolactone given hypotension. T2DM: - Continue Levemir 10u daily with sliding scale coverage. Diabetic peripheral neuropathy: - Continue gabapentin 300mg TID. Anxiety, depression: - Continue mirtazapine, buspirone, aripiprazole. Benign prostatic hyperplasia with urinary obstruction: - Continue finasteride, mirabegron. - Follow urine output. Tardive dyskinesia: - Continue Ingrezza. Code status: FULL CODE FEN: DM2 diet DVT ppx: heparin Dispo: med/surg (2) Skull fractures: (3) Hyperlipidemia: (4) Hypertension: (5) Type 2 diabetes mellitus: (6) Diabetic peripheral neuropathy: (7) Anxiety with depression: (8) Benign prostatic hyperplasia with urinary obstruction: (9) Tardive dyskinesia: (10) TERI (obstructive sleep apnea): (11) Cirrhosis, alcoholic: Admission and Anticipated Discharge Date Admission Date: December 06, 2021 Supervising Physician Co-Signing Physician Notes Attending attestation Pt seen and examined in concert with Dr. uHynh. In agreement with the documented findings as noted in the resident documentation with any exceptions or additions as noted here. 81 year old male with hx of DM, HTN, HLD, BPH, anxiety/depression admitted with generalized weakness and decreased oral intake. Stable POI and no active complaint from the patient at this time. On examination, S1/S2 nl RRR no MCG. CTAB. Abd NT/ND BS+ve. VS, nursing notes reviewed. Weakness and deconditioning - PT/OT onboard, encourage physical activity with nursing and PT Decreased appetite - continue Marinol and monitor POI. HTN - holding furosemide, spironolactone and magnesium oxide as pressures are doing well. Dispo: Pending SNF placement Else see resident documentation as noted. Subjective Patient sitting up in bed this morning in no acute distress. Patient is eating breakfast and tolerating well. He reports having good bowel movement, voiding, sleeping well. Acute concerns related to placement Physical Exam Physical Exam: General: Elderly gentleman lying in bed in no acute distress Cardiac: Regular rate and rhythm, normal S1, normal S2, I did not appreciated any significant murmurs rubs or gallops, I did not appreciate any significant pedal edema, No calf tenderness, capillary refill is less than 3 seconds Respiratory: Clear to auscultation bilaterally with symmetrical chest rise, I did not appreciate any significant wheezes, rales,Some bibasilar rhonchi, no increased work of breathing GI: Normal bowel sounds, soft, nontender in all 4 quadrants, nondistended MSK: No sensory or motor changes, moves all extremities without issue, extremities are warm and well-perfused Skin: [place], clean, dry, intact. Neuro: Alert and oriented x4 Psych: Calm, cooperative, logical thought process Results & Data Results & Data ([facility]) Vital Signs (Past 12 Hours) Vital Signs Temp Pulse Resp BP BP Pulse Ox 12/15/21 07:57 36.9 C 73 18 119/67 95 12/14/21 22:23 36.5 C 65 19 138/59 L 91 Laboratory Results 12/15/21 12/14/21 12/14/21 Range/Units 08:01 20:35 17:00 POC Glucose 108 H 172 H 156 H (70-99) mg/dl 12/14/21 12/14/21 Range/Units 12:10 08:30 POC Glucose 110 H 94 (70-99) mg/dl Medications Administered Current Inpatient Medications Acetaminophen (Acetaminophen 325 Mg Tab) 650 mg PO QDL [facility] Stop: 01/06/22 11:29 Last Admin: 12/14/21 12:32 Dose: Not Given Documented by: Amlodipine Besylate (Amlodipine Besylate 5 Mg Tab) 10 mg PO QAM [facility] Stop: 01/06/22 08:59 Last Admin: 12/15/21 07:34 Dose: 10 mg Documented by: Aripiprazole (Aripiprazole 15 Mg Tab) 7.5 mg PO HS [facility] Stop: 01/05/22 21:49 Last Admin: 12/14/21 21:04 Dose: 7.5 mg Documented by: Aspirin (Aspirin 81 Mg Chew) 81 mg PO QAM [facility] Stop: 01/06/22 08:59 Last Admin: 12/15/21 07:31 Dose: 81 mg Documented by: Atorvastatin Calcium (Atorvastatin 20 Mg Tab) 20 mg PO QAM [facility] Stop: 01/06/22 08:59 Last Admin: 12/15/21 07:32 Dose: 20 mg Documented by: Buspirone HCl (Buspirone 15 Mg Tab) 30 mg PO BID@0830,1630 [facility] Stop: 01/06/22 08:29 Last Admin: 12/15/21 07:35 Dose: 30 mg Documented by: Dextrose (Dextrose 50% 50 Ml Syringe) 25 - 50 ml IV UD PRN; Protocol PRN Reason: Hypoglycemia Protocol Stop: 01/05/22 21:56 Dronabinol (Dronabinol 2.5 Mg Cap) 2.5 mg PO DAILY [facility] Stop: 01/12/22 08:59 Last Admin: 12/15/21 07:31 Dose: 2.5 mg Documented by: Finasteride (Finasteride 5 Mg Tab) 5 mg PO QAM [facility] Stop: 01/06/22 08:59 Last Admin: 12/15/21 07:35 Dose: 5 mg Documented by: Gabapentin (Gabapentin 300 Mg Cap) 300 mg PO TID [facility] Stop: 01/05/22 21:59 Last Admin: 12/15/21 07:36 Dose: 300 mg Documented by: Glucagon (Glucagon For Inj 1 Mg Vial) 1 mg SQ UD PRN; Protocol PRN Reason: Hypoglycemia Protocol Stop: 01/05/22 21:56 Glucose (Glucose 40% Gel 15 Gm Tube) 15 - 30 gm PO UD PRN; Protocol PRN Reason: Hypoglycemia Protocol Stop: 01/05/22 21:56 Glucose (Glucose 10 Tabs/Tube) 4 - 8 tabs PO UD PRN; Protocol PRN Reason: Hypoglycemia Protocol Stop: 01/05/22 21:56 Guaifenesin (Guaifenesin 600 Mg Tabcr) 600 mg PO Q12 [facility] Stop: 01/08/22 08:59 Last Admin: 12/15/21 07:36 Dose: 600 mg Documented by: Heparin Sodium (Porcine) (Heparin Sod 5,000 Unit/0.5 Ml Vial) 5,000 units SQ Q12 [facility] Stop: 01/05/22 21:59 Last Admin: 12/15/21 07:36 Dose: 5,000 units Documented by: Insulin Aspart (Insulin Aspart Per Unit) 0 units SC ACHS [facility] Stop: 01/07/22 07:29 Last Admin: 12/14/21 21:06 Dose: 1 units Documented by: Insulin Detemir (Insulin Detemir Flexpen/Flex Touch 100 Units/Ml 3ml) 10 units SQ DAILY [facility] Stop: 01/06/22 08:59 Last Admin: 12/14/21 09:39 Dose: 10 units Documented by: Magnesium Oxide (Magnesium Oxide 400 Mg Tab) 400 mg PO QAM [facility] Stop: 01/06/22 08:59 Last Admin: 12/15/21 07:32 Dose: 400 mg Documented by: Melatonin (Melatonin 3 Mg Tab) 6 mg PO HS PRN PRN Reason: Insomnia Stop: 01/05/22 21:49 Mirabegron (Mirabegron Er 25 Mg Tab) 50 mg PO DAILY [facility] Stop: 01/06/22 08:59 Last Admin: 12/15/21 07:33 Dose: 50 mg Documented by: Mirtazapine (Mirtazapine Tab 15 Mg Tab) 30 mg PO HS [facility] Stop: 01/06/22 20:59 Last Admin: 12/14/21 21:05 Dose: 30 mg Documented by: Miscellaneous (Carbohydrates For Hypoglycemia ) 15 - 30 gm PO UD PRN PRN Reason: Hypoglycemia Protocol Stop: 01/05/22 21:56 Multivitamins/Minerals (Calcium 600mg + Vit D 400 Iu Tab) 1 tab PO QAM [facility] Stop: 01/06/22 08:59 Last Admin: 12/15/21 07:32 Dose: 1 tab Documented by: Multivitamins/Minerals (Cerovite Adv Formula Tab) 1 tab PO QAM [facility] Stop: 01/06/22 08:59 Last Admin: 12/15/21 07:31 Dose: 1 tab Documented by: *Ingrezza 40 Mg*Non- Formulary Patient's Own Med 1 ea PO DAILY [facility]; Protocol Stop: 01/06/22 08:59 Last Admin: 12/15/21 07:37 Dose: 1 cap Documented by: Pantoprazole Sodium (Pantoprazole 40 Mg Tab) 40 mg PO QAM [facility] Stop: 01/06/22 08:59 Last Admin: 12/15/21 07:31 Dose: 40 mg Documented by: Polyethylene Glycol (Polyethylene (Miralax) 17 Gm Pack) 17 gm PO DAILY [facility] Stop: 01/06/22 16:14 Last Admin: 12/15/21 07:39 Dose: Not Given Documented by: Vitamin B Complex (Vitamin B Complex Tab) 1 tab PO QAM [facility] Stop: 01/06/22 08:59 Last Admin: 12/15/21 07:34 Dose: 1 tab Documented by: Vitamin D (Cholecalciferol 1,000 Units 25 Mcg Tab) 2,000 units PO QAM [facility] Stop: 01/06/22 08:59 Last Admin: 12/15/21 07:32 Dose: 2,000 units Documented by:
[2021-12-15] MEDS: INSULIN DETEMIR FLEXPEN/FLEX TOUCH 100 UNITS/ML 3ML SQ SCH (09:01)
[2021-12-15] MEDS: INSULIN ASPART PER UNIT SC SCH ×4 (09:03→21:08)
[2021-12-15] MEDS: ACETAMINOPHEN 325 MG TAB PO SCH (11:57)
[2021-12-15] MEDS: ARIPiprazole 15 MG TAB PO SCH (21:07)
[2021-12-15] MEDS: MIRTAZAPINE TAB 15 MG TAB PO SCH (21:07)
[2021-12-16 06:21] LABS: Hematocrit (blood only) 40.5 % (42-52); Hemoglobin 13.9 g/dL (14.0-18.0); Mean Corpuscular Hemoglobin 31.1 pg (25-34); Mean Corpuscular Hgb Conc 34.3 g/dL (32-36); Mean Corpuscular Volume 90.6 fL (80-100); RDW Coefficient of Variation 13.2 % (11.5-14.5); RDW Standard Deviation 43.3 fL (36.4-46.3); Red Blood Count 4.47 M/uL (4.7-6.1); White Blood Count 6.92 K/uL (4.8-10.8)
[2021-12-16 06:43] LABS: Mean Platelet Volume 11.2 fL (7.4-10.4); Platelet Count 87 K/uL (130-400)
[2021-12-16 06:46] LABS: BUN Creatinine Ratio 25.5 (10-20); Calcium 9.1 mg/dl (8.5-10.1); Creatinine Clr Calc Pharmacy 141.2 ml/min; Eosinophils # (auto) 0.02 K/uL (0-0.5); Eosinophils % (auto) 0.3 %; Est GFR (African American) 120.8 ml/min; Est GFR (Non-African American) 104.2 ml/min; Immature Granulocytes # (auto) 0.01 K/uL (0.00-0.02); Immature Granulocytes % (auto) 0.1 %; Lymphocytes % (auto) 7.2 %; Monocytes # (auto) 0.44 K/uL (0.11-0.59); Monocytes % (auto) 6.4 %; Neutrophils # (auto) 5.95 K/uL (1.4-6.5); Potassium 3.9 mmol/L (3.5-5.1); RBC Morphology Unremarkable
--- NOTE | 2021-12-16 08:09 | Hospitalist Progress Note ---
Date of Service December 16, 2021 Assessment & Plan (1) Generalized weakness: Plan: 81yo male with DM2, HTN, HLD, BPH, anxiety, depression, and tardive dyskinesia admitted with weakness and poor oral intake. Weakness, deconditioning, poor PO intake Progressive worsening prior to admission Differential includes polypharmacy, poor PO intake, general deconditioning No evidence of infection, metabolic encephalopathy, stroke this admission Continue PT/OT; PT recommending SNF upon discharge CM assisting Continue PT and OT while admitted Started on Marinol 2.5mg daily to improve appetite Skull fracture Age-indeterminate parietal and occipital skull fractures, new since March 2020 Patient with no recollection of potential injuries, however on discussion with Dr. Gunderson injuries occurred over a year ago No signs of external injury to suggest recent trauma Cervical C-spine without con - no fracture or subluxation appreciated Bibasilar rhonchi Likely secondary to atelectasis, encourage the patient to get up and ambulate Patient has flutter valve and incentive spirometer at the bedside Resolved as of 12/16 Hyperlipidemia Continue home atorvastatin Hypertension BP under good control on home amlodipine Continue aspirin Holding lasix, spironolactone given hypotension T2DM Continue Levemir 10u daily with sliding scale coverage Diabetic peripheral neuropathy Continue gabapentin 300mg TID Anxiety, depression Continue mirtazapine, buspirone, aripiprazole Benign prostatic hyperplasia with urinary obstruction Continue finasteride, mirabegron Follow urine output Tardive dyskinesia Continue ingrezza Code status: full code FEN: DM2 diet DVT ppx: heparin Dispo: med/surg (2) Skull fractures: (3) Hyperlipidemia: (4) Hypertension: (5) Type 2 diabetes mellitus: (6) Diabetic peripheral neuropathy: (7) Anxiety with depression: (8) Benign prostatic hyperplasia with urinary obstruction: (9) Tardive dyskinesia: (10) TERI (obstructive sleep apnea): (11) Cirrhosis, alcoholic: Admission and Anticipated Discharge Date Admission Date: December 06, 2021 Supervising Physician Co-Signing Physician Notes I personally examined the patient and verified all massey points of history and exam, discussed case, and agree with decision making with Dr Hernandez feeling fine. awaiting placement vitals noted nad heent nc at mmm breathing unlabored no accessory muscles good effort skin no rashes no pallor or icterus weakness - for rehab, continue PT/OT Subjective Patient seen and evaluated at bedside this morning. Patient needed to be straight cath'd twice yesterday after being unable to urinate; bladder scans both times were about 500mL. This morning, patient feels well and has no complaints. Patient is hoping to avoid needing a fields. No new symptoms or concerns today including CP, SOB, abdominal pain, nausea, vomiting, lightheadedness, dizziness, and diarrhea. Review of Systems Review of Systems: See HPI Physical Exam Physical Exam: Constitutional: laying in bed, no acute distress HEENT: MMM CV: regular rhythm, no murmur appreciated, extremities well-perfused, no LE edema Resp: CTABL, no increased WOB Neuro: alert, oriented, no focal neurologic deficit appreciated Results & Data Results & Data ([facility]) Vital Signs (Past 12 Hours) Vital Signs Temp Pulse Resp BP Pulse Ox 12/15/21 22:56 36.5 C 66 17 122/61 93 Resident Activity Tracking Resident Involvement: Resident Care Provided Care Provided: Adult Hospital Medicine
[2021-12-16] MEDS: amLODIPine BESYLATE 5 MG TAB PO SCH (09:00)
[2021-12-16] MEDS: GABAPENTIN 300 MG CAP PO SCH ×3 (09:00→20:42)
[2021-12-16] MEDS: MIRABEGRON ER 25 MG TAB PO SCH (09:00)
[2021-12-16] MEDS: CHOLECALCIFEROL 1,000 UNITS 25 MCG TAB PO SCH (09:01)
[2021-12-16] MEDS: INSULIN DETEMIR FLEXPEN/FLEX TOUCH 100 UNITS/ML 3ML SQ SCH (09:01)
[2021-12-16] MEDS: busPIRone 15 MG TAB PO SCH ×2 (09:01→17:37)
[2021-12-16] MEDS: ASPIRIN 81 MG CHEW PO SCH (09:02)
[2021-12-16] MEDS: HEPARIN SOD 5,000 UNIT/0.5 ML VIAL SQ SCH ×2 (09:02→20:43)
[2021-12-16] MEDS: INGREZZA 40 MG PO SCH (09:03)
[2021-12-16] MEDS: FINASTERIDE 5 MG TAB PO SCH (09:03)
[2021-12-16] MEDS: ATORVASTATIN 20 MG TAB PO SCH (09:04)
[2021-12-16] MEDS: MAGNESIUM OXIDE 400 MG TAB PO SCH (09:04)
[2021-12-16] MEDS: POLYETHYLENE (MIRALAX) 17 GM PACK PO SCH (09:04)
[2021-12-16] MEDS: CEROVITE ADV FORMULA TAB PO SCH (09:04)
[2021-12-16] MEDS: CALCIUM 600MG + VIT D 400 IU TAB PO SCH (09:04)
[2021-12-16] MEDS: VITAMIN B COMPLEX TAB PO SCH (09:04)
[2021-12-16] MEDS: PANTOprazole 40 MG TAB PO SCH (09:05)
[2021-12-16] MEDS: INSULIN ASPART PER UNIT SC SCH ×4 (09:10→21:00)
[2021-12-16] MEDS: guaiFENesin 600 MG TABCR PO SCH ×2 (09:40→20:42)
[2021-12-16] MEDS: ACETAMINOPHEN 325 MG TAB PO SCH (12:43)
--- NOTE | 2021-12-16 17:02 | Billing Data ---
Date of Service December 16, 2021 Coding Level of Care Code 73775 Subseq Hosp Care Lvl 1
--- NOTE | 2021-12-16 17:34 | XRay Report ---
XR chest 1V portable HISTORY: hypoxia COMPARISON: Chest 12/08/2021 FINDINGS: No pneumothorax. No pleural fusions. The left-sided dual-chamber pacemaker. The heart remai ns top normal in size. There are poststernotomy changes again noted. Perihilar interstitial thickenin g and bibasilar hazy densities have developed in the interval. This could represent mild congestive c hange or a viral pneumonitis. IMPRESSION: Perihilar interstitial thickening and bibasilar hazy densities have developed in the interval. This c ould represent mild congestive change or a viral pneumonitis. ACT 112: Negative or not required by law. Electronically signed by: Ham Falk M.D. 12/16/2021 5:32 PM
[2021-12-16 18:16] LABS: Influenza A virus by PCR Negative (Neg); Influenza B virus by PCR Negative (Neg); RSV by PCR Negative (Neg); SARS CoV2 RNA(COVID-19) InHosp NEGATIVE (Negative)
[2021-12-16] MEDS: MIRTAZAPINE TAB 15 MG TAB PO SCH (20:41)
[2021-12-16] MEDS: ARIPiprazole 15 MG TAB PO SCH (20:42)
[2021-12-17 04:01] LABS: Troponin I < 0.03 ng/ml (0-0.04)
--- NOTE | 2021-12-17 04:20 | Communication Note ---
Date of Service: December 17, 2021 Received message from nursing at 0300 regarding decreased responsiveness. Per nursing report, was attempting to straight cath when they noticed he was poorly arousable. He was noted to be drowsy throughout the day; however, his baseline is not known to us at this time. Daytime notes seem to suggest that he was alert and oriented, but also here for weakness and deconditioning. He was started on Marinol today. Nicola johnson was called shortly thereafter. Upon arriving to the room, patient was found to be lying supine with eyes closed, breathing at a regular rhythm relaxed. His vitals were T 36.8, heart rate 76, respiratory rate 17, blood pressure 114/68, SPO2 96% on 4 L. He was nonarousable to verbal or tactile stimuli on multiple attempts. Pupils were equal and reactive to light. There is no evidence of JVD. Cardiac exam revealed normal rate and regular rhythm without murmurs rubs or gallops. Respiratory exam revealed occasional cough, but was otherwise clear to auscultation bilaterally. Abdominal examnondistended. Neuro examflexion extension of the joints did reveal increased stiffness globally throughout. Reflexes were diminished throughout, approximately 1+ in upper and lower extremities. There is no clonus. Acute encephalopathy. Suspect this may be secondary to polypharmacy; noted that patient started Marinol today and also got mirtazapine. Hold both of these. No new meds (pain, etc.). His blood sugars were normal. His new head CT was not revealing of any acute processes. Still awaiting baseline labs - CBC clotted and repeat draw awaiting. He is adequately securing his airway at this time, will continue to monitor on PCU status. Resident Activity Tracking Resident Involvement: Resident Care Provided Care Provided: Adult [facility]
[2021-12-17 04:42] LABS: Potassium 4.8 mmol/L (3.5-5.1)
[2021-12-17 04:43] LABS: Hematocrit (blood only) 40.7 % (42-52); Hemoglobin 13.9 g/dL (14.0-18.0); Mean Corpuscular Volume 90.8 fL (80-100); RDW Coefficient of Variation 13.4 % (11.5-14.5); RDW Standard Deviation 44.5 fL (36.4-46.3); Red Blood Count 4.48 M/uL (4.7-6.1); White Blood Count 8.95 K/uL (4.8-10.8)
[2021-12-17 04:43] LABS: Alanine Aminotransferase 42 U/L (7-52); Albumin Globulin Ratio 1.7 (0.9-2); Albumin Level 3.8 gm/dl (3.4-5.0); Alkaline Phosphatase 84 U/L (34-104); Anion Gap 7 (3-11); Aspartate Aminotransferase 28 U/L (13-39); BUN Creatinine Ratio 20.7 (10-20); Bilirubin,Total 0.8 mg/dl (0.2-1.0); Blood Urea Nitrogen 12 mg/dl (6-23); Calcium 9.5 mg/dl (8.5-10.1); Carbon Dioxide 25 mmol/L (21-32); Chloride 100 mmol/L (98-107); Creatinine Clr Calc Pharmacy 114.4 ml/min; Est GFR (African American) 110.8 ml/min; Est GFR (Non-African American) 95.6 ml/min; Globulin 2.3 gm/dl (2.5-4.0); Glucose 135 mg/dl (70-99(Fasting)); Sodium 132 mmol/L (136-145); Total Protein 6.1 gm/dl (6.0-8.3)
[2021-12-17 05:13] LABS: Mean Corpuscular Hgb Conc 34.2 g/dL (32-36); Mean Platelet Volume 11.4 fL (7.4-10.4); Platelet Count 86 K/uL (130-400)
[2021-12-17 05:14] LABS: Basophils # (auto) 0.01 K/uL (0-0.2); Basophils % (auto) 0.1 %; Eosinophils # (auto) 0.04 K/uL (0-0.5); Eosinophils % (auto) 0.4 %; Immature Granulocytes # (auto) 0.01 K/uL (0.00-0.02); Immature Granulocytes % (auto) 0.1 %; Lymphocytes % (auto) 6.7 %; Monocytes # (auto) 0.61 K/uL (0.11-0.59); Monocytes % (auto) 6.8 %; Neutrophils # (auto) 7.68 K/uL (1.4-6.5); Neutrophils % (auto) 85.9 %
--- NOTE | 2021-12-17 06:42 | CT Scan Report ---
CT head/brain wo con CLINICAL HISTORY: 81 years-old Male with decreased responsiveness. Acutely altered mental status TECHNIQUE: Multiple axial CT images of the head were obtained without contrast. A dose lowering tech nique was utilized adhering to the principles of ALARA. CT DOSE: 1467.65 mGy.cm COMPARISON: Head CT 12/06/2021, 05/20/2020.. FINDINGS: No acute intracranial hemorrhage, midline shift, intracranial mass, hydrocephalus, territorial ischem ia or abnormal extra-axial collection. Age-related involutional changes. White matter hypodensities s uggest chronic microvascular ischemic disease. Encephalomalacia of the left parietal lobe near the ve rtex. Senescent basal ganglia calcifications. Minimally displaced left posterior parietal and nondisplaced posterior right parietal occipital fract ures again noted. Mastoid air cells are generally clear. There is mild mucosal thickening of the par anasal sinuses. Hypoplastic right frontal sinus. Prior bilateral lens repair. IMPRESSION: 1. No acute intracranial abnormality. 2. Age-indeterminate likely chronic calvarial fractures are redemonstrated. ACT 112: Negative or not required by law. The above report was generated using voice recognition software. It may contain grammatical, syntax o r spelling errors. Electronically signed by: Sea Mas M.D. 12/17/2021 6:41 AM
--- NOTE | 2021-12-17 07:29 | Hospitalist Progress Note ---
Date of Service December 17, 2021 Assessment & Plan (1) Generalized weakness: Plan: 81yo male with DM2, HTN, HLD, BPH, anxiety, depression, and tardive dyskinesia admitted with weakness and poor oral intake. New-onset slurred speech, left facial droop Symptom onset was some time between late 12/16 and early 12/17 No known history of CVA, TIA, DVT/PE; symptom onset occurred in the setting of heparin 5000u sq q12h anticoagulation therapy BP well-controlled over the past day CT head without acute process MRI brain ordered; patient's pacemaker settings need to be changed prior to MRI, [employer] rep will assist on Dec 18 NPO pending speech therapy evaluation Lipid profile and A1c ordered Continue telemetry monitoring, continue BP control Weakness, deconditioning, poor PO intake Progressive worsening prior to admission Differential includes polypharmacy, poor PO intake, general deconditioning No evidence of infection, metabolic encephalopathy, stroke this admission Continue PT/OT; PT recommending SNF upon discharge CM assisting Continue PT and OT while admitted 12/17: holding mirtazepine and marinol Urinary retention Patient has required approximately five straight caths; patient denies abdominal pain or other symptoms Likely secondary to polypharmacy as patient had recently been started on mirtazepine and marinol; holding mirtazepine and marinol at this time Continue bladder scan prn, straight cath prn; patient declines fields placement at this time Continue to monitor Skull fracture Age-indeterminate parietal and occipital skull fractures, new since March 2020 Patient with no recollection of potential injuries, however on discussion with Dr. Gunderson injuries occurred over a year ago No signs of external injury to suggest recent trauma Cervical C-spine without con - no fracture or subluxation appreciated Bibasilar rhonchi Likely secondary to atelectasis, encourage the patient to get up and ambulate Patient has flutter valve and incentive spirometer at the bedside Resolved as of 12/16 Hyperlipidemia Continue home atorvastatin Hypertension BP under good control on home amlodipine Continue aspirin Holding lasix, spironolactone given hypotension T2DM Continue Levemir 10u daily with sliding scale coverage Diabetic peripheral neuropathy Continue gabapentin 300mg TID Anxiety, depression Continue mirtazapine, buspirone, aripiprazole Benign prostatic hyperplasia with urinary obstruction Continue finasteride, mirabegron Follow urine output Tardive dyskinesia Continue ingrezza Code status: full code FEN: NPO pending speech evaluation DVT ppx: heparin Dispo: med/surg (2) Skull fractures: (3) Hyperlipidemia: (4) Hypertension: (5) Type 2 diabetes mellitus: (6) Diabetic peripheral neuropathy: (7) Anxiety with depression: (8) Benign prostatic hyperplasia with urinary obstruction: (9) Tardive dyskinesia: (10) TERI (obstructive sleep apnea): (11) Cirrhosis, alcoholic: Admission and Anticipated Discharge Date Admission Date: December 06, 2021 Supervising Physician Co-Signing Physician Notes I personally examined the patient and verified all massey points of history and exam, discussed case, and agree with decision making with Dr Hernandez Feeling okay. Not really short of breath. Daughter actually notes that his wet cough has been going on for quite a while, although obviously oxygen requirement is new. Facial droop resolvedhe questions if it was really there notnotes that he was very tired a little bit out of it and did not have his dentures in. Does not recall facial droop with his stroke, neither does daughter. MRI from 2019 reviewed, did have right-sided small stroke on imaging. No other new complaints. Vitals noted, in general he is awake and alert pleasant no distress. HEENT normocephalic atraumatic mucous membranes moist. Cardio is distant. Lungs are surprisingly clear although moderate effort at bestbut no rales rhonchi or wheezes. No accessory muscle use. No conversational dyspnea. On about 3 L nasal cannula. Does have a bit of wet cough. Neuro shows cranial nerves II through XII be grossly intact gross motor and sensory intactno asymmetry no focal weakness. Altered mental status, questionable facial droopagree with overnight coverage the polypharmacy seems to be most likely. Also potential of a metabolic encephalopathy related to his pneumonia. Either way seems to be very reassuring now. Given that he does have known cerebrovascular disease and prior strokes, agree with MRI to quantify the situation further, but certainly does not appear to be acute/urgent/unstable. Even more, I do wonder about unmasking of an old stroke, that has now resolved; versus simply being groggy from polypharmacy and delirium combined with not having his dentures in. At any rate doing better. Continue observation and supportive care Pneumoniaantibiotics, oxygen, supportive care. Speech eval and treat. Low threshold to repeat viral swabs given his radiographic appearance. Despite radiographic appearance, doubt CHF given his lack of a concerning/repetitive CHF history, reassuring echo (recheck is pending for more updated echocardiogram), and low BNP weakness - for rehab, continue PT/OT Subjective Overnight, patient was noted with decreased responsiveness when nursing was about to straight cath patient for urinary retention. Patient was unresponsive to verbal and tactile stimulation and a code purple was called. See the overnight communication report (12/17/2021) for further detail. This morning, patient feels well and has no complaints. Patient is noted this morning with slurred speech which represents an interval change from yesterday. However, patient denies symptoms at this time including CP, SOB, abdominal pain, nausea, vomiting, lightheadedness, dizziness, and diarrhea. Review of Systems Review of Systems: See HPI Physical Exam Physical Exam: Constitutional: laying in bed, no acute distress HEENT: MMM CV: regular rhythm, no murmur appreciated, extremities well-perfused, no LE edema Resp: CTABL, no increased WOB Neuro: alert, oriented, slurred speech appreciated, left-sided facial droop appreciated; with the exception of the L facial droop, CN2-12 are otherwise unremarkable and no other focal deficits are appreciated Results & Data Results & Data ([facility]) Vital Signs (Past 12 Hours) Vital Signs Temp Pulse Pulse Resp BP Pulse Ox 12/17/21 05:25 36 C L 75 16 109/58 L 98 12/17/21 03:10 96 12/17/21 02:56 36.8 C 76 17 114/68 96 12/16/21 22:22 36.9 C 88 17 124/66 94 Resident Activity Tracking Resident Involvement: Resident Care Provided Care Provided: Adult Hospital Medicine
--- NOTE | 2021-12-17 08:12 | XRay Report ---
XR chest 1V portable HISTORY: cough, decreased responsiveness COMPARISON: Chest 12/16/2021. FINDINGS: No pneumothorax. No pleural effusions. The heart remains mildly enlarged. There are postste rnotomy changes. Perihilar interstitial/vascular thickening and hazy bibasilar densities persist. Lef t-sided dual-chamber pacemaker. IMPRESSION: Interval progression of the perihilar interstitial thickening and bibasilar hazy densities. This favo rs mild interstitial pulmonary edema. A viral pneumonia could also have a similar appearance. ACT 112: Negative or not required by law. Electronically signed by: Ham Falk M.D. 12/17/2021 8:10 AM
[2021-12-17 09:29] LABS: Oxygen Saturation VBG 79.9 %; pH VBG 7.39 (7.36-7.41)
--- NOTE | 2021-12-17 09:33 | Electrocardiogram Report ---
Test Reason : Blood Pressure : / mmHG Vent. Rate : 078 BPM Atrial Rate : 079 BPM P-R Int : 258 ms QRS Dur : 166 ms QT Int : 444 ms P-R-T Axes : 056 130 -05 degrees QTc Int : 506 ms Atrial-sensed ventricular-paced rhythm with prolonged AV conduction with occasional Premature ventric ular complexes Abnormal ECG When compared with ECG of 06-DEC-2021 16:40, Vent. rate has decreased BY 2 BPM Confirmed by Ramiro Maynard ([id number]) on 12/17/2021 9:32:40 AM Referred By: REFERRED SELF Confirmed By:Ramiro Maynard
[2021-12-17] MEDS: INSULIN ASPART PER UNIT SC SCH ×4 (09:46→21:27)
[2021-12-17] MEDS: GABAPENTIN 300 MG CAP PO SCH ×3 (09:49→21:23)
[2021-12-17] MEDS: amLODIPine BESYLATE 5 MG TAB PO SCH (09:49)
[2021-12-17] MEDS: busPIRone 15 MG TAB PO SCH ×2 (09:49→16:26)
[2021-12-17] MEDS: guaiFENesin 600 MG TABCR PO SCH ×2 (09:49→21:24)
[2021-12-17] MEDS: CHOLECALCIFEROL 1,000 UNITS 25 MCG TAB PO SCH (09:49)
[2021-12-17] MEDS: FINASTERIDE 5 MG TAB PO SCH (09:49)
[2021-12-17] MEDS: ASPIRIN 81 MG CHEW PO SCH (09:49)
[2021-12-17] MEDS: ATORVASTATIN 20 MG TAB PO SCH (09:49)
[2021-12-17] MEDS: CALCIUM 600MG + VIT D 400 IU TAB PO SCH (09:49)
[2021-12-17] MEDS: MAGNESIUM OXIDE 400 MG TAB PO SCH (09:50)
[2021-12-17] MEDS: MIRABEGRON ER 25 MG TAB PO SCH (09:50)
[2021-12-17] MEDS: CEROVITE ADV FORMULA TAB PO SCH (09:50)
[2021-12-17] MEDS: PANTOprazole 40 MG TAB PO SCH (09:50)
[2021-12-17] MEDS: INGREZZA 40 MG PO SCH (09:50)
[2021-12-17] MEDS: POLYETHYLENE (MIRALAX) 17 GM PACK PO SCH (09:50)
[2021-12-17] MEDS: VITAMIN B COMPLEX TAB PO SCH (09:51)
[2021-12-17] MEDS: INSULIN DETEMIR FLEXPEN/FLEX TOUCH 100 UNITS/ML 3ML SQ SCH (09:51)
[2021-12-17] MEDS: HEPARIN SOD 5,000 UNIT/0.5 ML VIAL SQ SCH ×2 (10:22→21:24)
[2021-12-17 11:07] LABS: Estimated Average Glucose 123 mg/dl; Hemoglobin A1C 5.9 % (4.5-5.6)
[2021-12-17] MEDS: ACETAMINOPHEN 325 MG TAB PO SCH ×3 (12:34→16:28)
[2021-12-17] MEDS: AMPICILLIN/SULBACTAM SOD 1,500 MG in 0.9 % SODIUM CHLORIDE 100 ML IV SCH ×2 (13:05→17:37)
--- NOTE | 2021-12-17 15:08 | XCELERA ---
[id number] \\[id number]
--- NOTE | 2021-12-17 15:52 | Billing Data ---
Date of Service December 17, 2021 Coding Level of Care Code 03911 Subseq Hosp Care Lvl 3
[2021-12-17] MEDS ORDERED: ACETAMINOPHEN 325 MG TAB PO PRN (16:56)
[2021-12-17] MEDS: ARIPiprazole 15 MG TAB PO SCH (21:23)
[2021-12-18] MEDS: AMPICILLIN/SULBACTAM SOD 1,500 MG in 0.9 % SODIUM CHLORIDE 100 ML IV SCH ×4 (00:37→17:34)
[2021-12-18 05:01] LABS: Hematocrit (blood only) 35.8 % (42-52); Hemoglobin 12.1 g/dL (14.0-18.0); Mean Corpuscular Hemoglobin 30.9 pg (25-34); Mean Corpuscular Hgb Conc 33.8 g/dL (32-36); Mean Corpuscular Volume 91.6 fL (80-100); RDW Coefficient of Variation 13.6 % (11.5-14.5); RDW Standard Deviation 44.9 fL (36.4-46.3); Red Blood Count 3.91 M/uL (4.7-6.1); White Blood Count 4.14 K/uL (4.8-10.8)
[2021-12-18 05:18] LABS: Albumin Globulin Ratio 1.7 (0.9-2); Albumin Level 3.2 gm/dl (3.4-5.0); BUN Creatinine Ratio 24.5 (10-20); Bilirubin,Total 0.7 mg/dl (0.2-1.0); Calcium 8.8 mg/dl (8.5-10.1); Creatinine Clr Calc Pharmacy 135.5 ml/min; Est GFR (African American) 118.8 ml/min; Est GFR (Non-African American) 102.5 ml/min; Globulin 1.9 gm/dl (2.5-4.0); Potassium 4.1 mmol/L (3.5-5.1); Total Protein 5.1 gm/dl (6.0-8.3)
[2021-12-18 05:23] LABS: Prothrombin Time 10.6 Seconds (9.0-12.0)
[2021-12-18 05:40] LABS: Platelet Count 83 K/uL (130-400)
[2021-12-18 05:41] LABS: Basophils # (auto) 0.01 K/uL (0-0.2); Basophils % (auto) 0.2 %; Eosinophils # (auto) 0.06 K/uL (0-0.5); Eosinophils % (auto) 1.4 %; Lymphocytes # (auto) 0.71 K/uL (1.2-3.4); Lymphocytes % (auto) 17.1 %; Monocytes # (auto) 0.36 K/uL (0.11-0.59); Monocytes % (auto) 8.7 %; Neutrophils % (auto) 72.6 %
[2021-12-18] MEDS: INSULIN ASPART PER UNIT SC SCH ×4 (08:03→20:46)
[2021-12-18] MEDS: MAGNESIUM OXIDE 400 MG TAB PO SCH (08:04)
[2021-12-18] MEDS: CEROVITE ADV FORMULA TAB PO SCH (08:04)
[2021-12-18] MEDS: POLYETHYLENE (MIRALAX) 17 GM PACK PO SCH (08:04)
[2021-12-18] MEDS: GABAPENTIN 300 MG CAP PO SCH ×3 (08:05→20:38)
[2021-12-18] MEDS: FINASTERIDE 5 MG TAB PO SCH (08:05)
[2021-12-18] MEDS: ASPIRIN 81 MG CHEW PO SCH (08:05)
[2021-12-18] MEDS: MIRABEGRON ER 25 MG TAB PO SCH (08:05)
[2021-12-18] MEDS: amLODIPine BESYLATE 5 MG TAB PO SCH (08:05)
[2021-12-18] MEDS: HEPARIN SOD 5,000 UNIT/0.5 ML VIAL SQ SCH ×2 (08:05→20:40)
[2021-12-18] MEDS: INGREZZA 40 MG PO SCH (08:06)
[2021-12-18] MEDS: PANTOprazole 40 MG TAB PO SCH (08:06)
[2021-12-18] MEDS: busPIRone 15 MG TAB PO SCH ×2 (08:06→17:35)
[2021-12-18] MEDS: INSULIN DETEMIR FLEXPEN/FLEX TOUCH 100 UNITS/ML 3ML SQ SCH (08:07)
[2021-12-18] MEDS: CALCIUM 600MG + VIT D 400 IU TAB PO SCH (08:07)
[2021-12-18] MEDS: ATORVASTATIN 20 MG TAB PO SCH (08:07)
[2021-12-18] MEDS: guaiFENesin 600 MG TABCR PO SCH ×2 (08:07→20:39)
--- NOTE | 2021-12-18 08:07 | Hospitalist Progress Note ---
Date of Service December 18, 2021 Assessment & Plan (1) Generalized weakness: Plan: 81yo male with DM2, HTN, HLD, BPH, anxiety, depression, and tardive dyskinesia admitted with weakness and poor oral intake. AMS, slurred speech, facial droop Symptom onset was some time between late 12/16 and early 12/17 BP well-controlled CT head without acute process; MRI negative for acute findings Symptoms possibly secondary to recrudescence in the setting of pneumonia NPO pending FEES Lipid profile reveals low LDL; change in statin therapy not indicated A1c 5.9% Continue telemetry monitoring, continue BP control Pneumonia Improving well on unasyn; continue for now Saturating well on 2L NC; wean as tolerated Continue mucinex Weakness, deconditioning, poor PO intake Progressive worsening prior to admission Differential includes polypharmacy, poor PO intake, general deconditioning No evidence of infection, metabolic encephalopathy, stroke this admission Continue PT/OT; PT recommending SNF upon discharge CM assisting Continue PT and OT while admitted 12/17: holding mirtazepine and marinol Urinary retention Patient has required approximately five straight caths; patient denies abdominal pain or other symptoms Likely secondary to polypharmacy as patient had recently been started on mirtazepine and marinol; holding mirtazepine and marinol at this time Continue bladder scan prn, straight cath prn; patient declines fields placement at this time Continue to monitor Skull fracture Age-indeterminate parietal and occipital skull fractures, new since March 2020 Patient with no recollection of potential injuries, however on discussion with Dr. Gunderson injuries occurred over a year ago No signs of external injury to suggest recent trauma Cervical C-spine without con - no fracture or subluxation appreciated Bibasilar rhonchi Likely secondary to atelectasis, encourage the patient to get up and ambulate Patient has flutter valve and incentive spirometer at the bedside Resolved as of 12/16 Hyperlipidemia Continue home atorvastatin Hypertension BP under good control on home amlodipine Continue aspirin Holding lasix, spironolactone given hypotension T2DM Continue Levemir 10u daily with sliding scale coverage Diabetic peripheral neuropathy Continue gabapentin 300mg TID Anxiety, depression Continue mirtazapine, buspirone, aripiprazole Benign prostatic hyperplasia with urinary obstruction Continue finasteride, mirabegron Follow urine output Tardive dyskinesia Continue ingrezza Code status: full code FEN: NPO pending speech evaluation DVT ppx: heparin Dispo: med/surg (2) Skull fractures: (3) Hyperlipidemia: (4) Hypertension: (5) Type 2 diabetes mellitus: (6) Diabetic peripheral neuropathy: (7) Anxiety with depression: (8) Benign prostatic hyperplasia with urinary obstruction: (9) Tardive dyskinesia: (10) TERI (obstructive sleep apnea): (11) Cirrhosis, alcoholic: Admission and Anticipated Discharge Date Admission Date: December 06, 2021 Supervising Physician Co-Signing Physician Notes I personally examined the patient and verified all massey points of history and exam, discussed case, and agree with decision making with Dr Hernandez Feeling okay. Breathing is generally doing better. Coming down on oxygen. Eating modified food, not that big of a fan of it. Daughter present at the bedsideupdated to the best my ability and to her satisfaction, answered questions to the best my ability as well. Vitals noted, in general he is awake and alert pleasant no distress. HEENT normocephalic atraumatic mucous membranes moist. Breathing unlabored no accessory muscle use good effort. Skin shows no rashes no pallor or icterus. Neuro without focal deficits. Altered mental status, questionable facial droopstrongly suspect this was more likely grogginess and not having his dentures in. MRI negative for acute findings, and overall his work-up for any sort of an acute cerebrovascular event is fairly low in concern. Of course this cannot definitively rule out a TIAespecially in somebody with known/established cerebrovascular diseasebut everything overall appears to be much more in line with polypharmacy (Marinol and Remeron) and/or a mild metabolic encephalopathy (pneumonia). Improved Pneumoniaantibiotics, oxygen, supportive care. Speech eval and treat appreciated. Improving quickly. weakness - for rehab, continue PT/OT Subjective Patient seen and evaluated at bedside this morning. No acute events overnight. Patient feels well today, noting an improvement in his fatigue compared to yesterday. No new symptoms or concerns. Patient denies CP, SOB, abdominal pain, nausea, vomiting, lightheadedness, dizziness, and diarrhea. Review of Systems Review of Systems: See HPI Physical Exam Physical Exam: Constitutional: laying in bed, no acute distress HEENT: MMM CV: regular rhythm, no murmur appreciated, extremities well-perfused, no LE edema Resp: CTABL, no increased WOB Neuro: alert, oriented, slurred speech appreciated, left-sided facial droop appreciated; with the exception of the L facial droop, CN2-12 are otherwise unremarkable and no other focal deficits are appreciated Results & Data Results & Data ([facility]) Vital Signs (Past 12 Hours) Vital Signs Temp Pulse Resp BP Pulse Ox 12/18/21 04:00 37.6 C H 90 18 135/65 96 12/17/21 23:47 37 C 71 18 103/50 L 95 Resident Activity Tracking Resident Involvement: Resident Care Provided Care Provided: Adult Hospital Medicine
[2021-12-18] MEDS: VITAMIN B COMPLEX TAB PO SCH (08:08)
[2021-12-18] MEDS: CHOLECALCIFEROL 1,000 UNITS 25 MCG TAB PO SCH (08:14)
--- NOTE | 2021-12-18 14:07 | Magnetic Resonance Report ---
MR BRAIN WO CON HISTORY: 81 years-old Male AMS . Acute weakness with altered mental status. COMPARISON: Head CT 12/17/2021, brain MRI 04/05/2020. TECHNIQUE: Multiplanar multisequence MRI of the brain was obtained without the use of IV contrast. FINDINGS: The pharmacy benefits coordinator localizer images demonstrate no gross extracranial abnormality. The midline structures appe ar unremarkable. There is no restricted diffusion to suggest acute or subacute infarct. No acute intr acranial hemorrhage, midline shift, abnormal extra-axial collection, hydrocephalus or intracranial ma ss. Senescent calcifications of the basal ganglia. Age-related involutional changes with ex vacuo jeremy triculomegaly. Moderate T2/FLAIR hyperintense foci throughout the white matter. Encephalomalacia and gliosis of the left parietal lobe compatible with chronic infarct, new from the 2019 comparison. Mildly depressed left posterior parietal and nondisplaced posterior right parieto-occipital fractures are redemonstrated which appear to be subacute to chronic. The cerebral venous sinuses and major art erial flow voids appear patent. Moderate-sized mastoid effusions. Mild mucosal thickening of the para nasal sinuses with left maxillary sinus volume loss. Prior bilateral lens repair. Suggested chronic l eft inferior orbital floor fracture. IMPRESSION: 1. No acute intracranial abnormality. 2. Likely chronic calvarial and left orbital floor fractures. 3. Age-related involutional changes with chronic microvascular ischemic disease. 4. Chronic appearing left parietal lobe infarct. ACT 112: Negative or not required by law. The above report was generated using voice recognition software. It may contain grammatical, syntax o r spelling errors. Dictated: 12/18/2021 1:35 PM Transcribed: 12/18/2021 2:02 PM Rina [id number] [facility] Electronically signed by: Sea Mas M.D. 12/18/2021 2:05 PM
--- NOTE | 2021-12-18 17:57 | Billing Data ---
Date of Service December 18, 2021 Coding Level of Care Code 20430 Subseq Hosp Care Lvl 3
[2021-12-18] MEDS: ARIPiprazole 15 MG TAB PO SCH (20:38)
[2021-12-19] MEDS: AMPICILLIN/SULBACTAM SOD 1,500 MG in 0.9 % SODIUM CHLORIDE 100 ML IV SCH ×5 (00:49→23:43)
[2021-12-19 06:20] LABS: Hematocrit (blood only) 35.7 % (42-52); Mean Corpuscular Hemoglobin 30.9 pg (25-34); Mean Corpuscular Hgb Conc 33.6 g/dL (32-36); RDW Coefficient of Variation 13.6 % (11.5-14.5); RDW Standard Deviation 45.4 fL (36.4-46.3); Red Blood Count 3.88 M/uL (4.7-6.1); White Blood Count 3.33 K/uL (4.8-10.8)
[2021-12-19 06:31] LABS: Mean Platelet Volume 11.3 fL (7.4-10.4); Platelet Count 86 K/uL (130-400)
[2021-12-19 06:47] LABS: Basophils # (auto) 0.01 K/uL (0-0.2); Basophils % (auto) 0.3 %; Eosinophils # (auto) 0.06 K/uL (0-0.5); Eosinophils % (auto) 1.8 %; Lymphocytes # (auto) 0.69 K/uL (1.2-3.4); Lymphocytes % (auto) 20.7 %; Monocytes # (auto) 0.24 K/uL (0.11-0.59); Monocytes % (auto) 7.2 %; Neutrophils # (auto) 2.33 K/uL (1.4-6.5)
[2021-12-19 06:55] LABS: BUN Creatinine Ratio 22.7 (10-20); Creatinine Clr Calc Pharmacy 147.3 ml/min; Est GFR (African American) 124.2 ml/min; Est GFR (Non-African American) 107.1 ml/min; Potassium 3.7 mmol/L (3.5-5.1)
--- NOTE | 2021-12-19 07:54 | Hospitalist Progress Note ---
Date of Service December 19, 2021 Assessment & Plan (1) Generalized weakness: Plan: 81yo male with DM2, HTN, HLD, BPH, anxiety, depression, and tardive dyskinesia admitted with weakness and poor oral intake. AMS, slurred speech, facial droop Symptom onset was some time between late 12/16 and early 12/17 BP well-controlled CT head without acute process; MRI negative for acute findings Symptoms possibly secondary to recrudescence in the setting of pneumonia NPO pending FEES Lipid profile reveals low LDL; change in statin therapy not indicated A1c 5.9% Continue telemetry monitoring, continue BP control Pneumonia Improving well on unasyn; continue for now Saturating well on 2L NC; wean as tolerated Continue mucinex Weakness, deconditioning, poor PO intake Progressive worsening prior to admission Differential includes polypharmacy, poor PO intake, general deconditioning No evidence of infection, metabolic encephalopathy, stroke this admission Continue PT/OT; PT recommending SNF upon discharge CM assisting with placement Continue PT and OT while admitted 12/17: holding mirtazepine and marinol Urinary retention Patient has required approximately five straight caths; patient denies abdominal pain or other symptoms Likely secondary to polypharmacy as patient had recently been started on mirtazepine and marinol; holding mirtazepine and marinol at this time Fields placed / Continue to monitor Skull fracture Age-indeterminate parietal and occipital skull fractures, new since March 2020 Patient with no recollection of potential injuries, however on discussion with Dr. Gunderson injuries occurred over a year ago No signs of external injury to suggest recent trauma Cervical C-spine without con - no fracture or subluxation appreciated Bibasilar rhonchi Likely secondary to atelectasis, encourage the patient to get up and ambulate Patient has flutter valve and incentive spirometer at the bedside Resolved as of 12/16 Hyperlipidemia Continue home atorvastatin Hypertension BP under good control on home amlodipine Continue aspirin Holding lasix, spironolactone given hypotension T2DM Continue Levemir 10u daily with sliding scale coverage Diabetic peripheral neuropathy Continue gabapentin 300mg TID Anxiety, depression Continue mirtazapine, buspirone, aripiprazole Benign prostatic hyperplasia with urinary obstruction Continue finasteride, mirabegron Follow urine output Tardive dyskinesia Continue ingrezza Code status: full code FEN: NPO pending FEES DVT ppx: heparin Dispo: med/surg (2) Skull fractures: (3) Hyperlipidemia: (4) Hypertension: (5) Type 2 diabetes mellitus: (6) Diabetic peripheral neuropathy: (7) Anxiety with depression: (8) Benign prostatic hyperplasia with urinary obstruction: (9) Tardive dyskinesia: (10) TERI (obstructive sleep apnea): (11) Cirrhosis, alcoholic: Admission and Anticipated Discharge Date Admission Date: December 06, 2021 Supervising Physician Co-Signing Physician Notes I personally examined the patient and verified all massey points of history and exam, discussed case, and agree with decision making with Dr Hernandez Feeling better, breathing better, needing less oxygen. Speech input notedhigh risk for aspiration. Vitals noted, in general he is awake and alert pleasant no distress. HEENT normocephalic atraumatic mucous membranes moist. Breathing unlabored no accessory muscle use good effort. Skin shows no rashes no pallor or icterus. Neuro without focal deficits. Altered mental status, questionable facial droopstrongly suspect this was more likely grogginess and not having his dentures in. MRI negative for acute findings, and overall his work-up for any sort of an acute cerebrovascular event is fairly low in concern. Of course this cannot definitively rule out a TIAespecially in somebody with known/established cerebrovascular diseasebut everything overall appears to be much more in line with polypharmacy (Marinol and Remeron) and/or a mild metabolic encephalopathy (pneumonia). Improved Pneumoniaantibiotics, oxygen, supportive care. Speech eval and treat appreciated. Improving quickly. Yesterday even before full speech assessment was completed, started discussed with patient possible aspiration risk and strategies to minimize aspiration risk versus diet as tolerated with permissive aspiration. He seemed to be leaning towards the latter, although I definitely did not want him to make any kind of immediate decisions. weakness - for snf/rehab, continue PT/OT Subjective Patient seen and evaluated at bedside this morning. Overnight, patient required an additional straight catheterization; because he's needed five of these so far, the overnight resident decided to place a fields. Patient seen and evaluated at bedside this morning. Today, patient feels well and only complains of mild penile discomfort secondary to fields placement. Other than this, patient denies additional symptoms or concerns. Patient denies CP, SOB, abdominal pain, nausea, vomiting, lightheadedness, dizziness, and diarrhea. Review of Systems Review of Systems: See HPI Physical Exam Physical Exam: Constitutional: laying in bed, no acute distress HEENT: MMM CV: regular rhythm, no murmur appreciated, extremities well-perfused, no LE edema Resp: CTABL, no increased WOB Neuro: alert, oriented, speech clear, no facial droop, CN2-12 are unremarkable, repetitive rhythmic tongue movements noted, no other focal deficits are appreciated Results & Data Results & Data ([facility]) Vital Signs (Past 12 Hours) Vital Signs Temp Pulse Pulse Resp BP Pulse Ox 12/19/21 06:54 37.0 C 77 18 138/68 97 12/18/21 21:00 36.7 C 75 16 109/59 L 96 12/18/21 20:00 36.8 C 74 17 118/49 L 94 Resident Activity Tracking Resident Involvement: Resident Care Provided Care Provided: Adult Hospital Medicine
[2021-12-19] MEDS: busPIRone 15 MG TAB PO SCH ×2 (09:12→17:43)
[2021-12-19] MEDS: ATORVASTATIN 20 MG TAB PO SCH (09:12)
[2021-12-19] MEDS: amLODIPine BESYLATE 5 MG TAB PO SCH (09:12)
[2021-12-19] MEDS: CEROVITE ADV FORMULA TAB PO SCH (09:13)
[2021-12-19] MEDS: guaiFENesin 600 MG TABCR PO SCH ×2 (09:13→21:24)
[2021-12-19] MEDS: CALCIUM 600MG + VIT D 400 IU TAB PO SCH (09:13)
[2021-12-19] MEDS: CHOLECALCIFEROL 1,000 UNITS 25 MCG TAB PO SCH (09:13)
[2021-12-19] MEDS: PANTOprazole 40 MG TAB PO SCH (09:13)
[2021-12-19] MEDS: FINASTERIDE 5 MG TAB PO SCH (09:13)
[2021-12-19] MEDS: VITAMIN B COMPLEX TAB PO SCH (09:13)
[2021-12-19] MEDS: MIRABEGRON ER 25 MG TAB PO SCH (09:13)
[2021-12-19] MEDS: GABAPENTIN 300 MG CAP PO SCH ×3 (09:13→21:24)
[2021-12-19] MEDS: INGREZZA 40 MG PO SCH (09:14)
[2021-12-19] MEDS: MAGNESIUM OXIDE 400 MG TAB PO SCH (09:30)
[2021-12-19] MEDS: ASPIRIN 81 MG CHEW PO SCH (09:30)
[2021-12-19] MEDS: POLYETHYLENE (MIRALAX) 17 GM PACK PO SCH (09:31)
[2021-12-19] MEDS: INSULIN ASPART PER UNIT SC SCH ×4 (09:36→21:35)
[2021-12-19] MEDS: HEPARIN SOD 5,000 UNIT/0.5 ML VIAL SQ SCH ×2 (09:36→21:25)
[2021-12-19] MEDS: INSULIN DETEMIR FLEXPEN/FLEX TOUCH 100 UNITS/ML 3ML SQ SCH (10:15)
--- NOTE | 2021-12-19 18:51 | Billing Data ---
Date of Service December 19, 2021 Coding Level of Care Code 40232 Subseq Hosp Care Lvl 2
[2021-12-19] MEDS: ARIPiprazole 15 MG TAB PO SCH (21:24)
[2021-12-20] MEDS: AMPICILLIN/SULBACTAM SOD 1,500 MG in 0.9 % SODIUM CHLORIDE 100 ML IV SCH ×3 (05:57→18:15)
[2021-12-20 06:31] LABS: Hematocrit (blood only) 36.7 % (42-52); Hemoglobin 12.3 g/dL (14.0-18.0); Mean Corpuscular Hemoglobin 30.6 pg (25-34); Mean Corpuscular Hgb Conc 33.5 g/dL (32-36); Mean Corpuscular Volume 91.3 fL (80-100); RDW Coefficient of Variation 13.3 % (11.5-14.5); RDW Standard Deviation 44.2 fL (36.4-46.3); Red Blood Count 4.02 M/uL (4.7-6.1); White Blood Count 3.34 K/uL (4.8-10.8)
[2021-12-20 06:37] LABS: Platelet Count 84 K/uL (130-400)
[2021-12-20 07:02] LABS: Basophils # (auto) 0.01 K/uL (0-0.2); Basophils % (auto) 0.3 %; Eosinophils # (auto) 0.04 K/uL (0-0.5); Eosinophils % (auto) 1.2 %; Immature Granulocytes # (auto) 0.01 K/uL (0.00-0.02); Immature Granulocytes % (auto) 0.3 %; Lymphocytes # (auto) 0.51 K/uL (1.2-3.4); Lymphocytes % (auto) 15.3 %; Monocytes # (auto) 0.27 K/uL (0.11-0.59); Monocytes % (auto) 8.1 %; Neutrophils % (auto) 74.8 %
[2021-12-20 07:06] LABS: BUN Creatinine Ratio 22.4 (10-20); Calcium 8.9 mg/dl (8.5-10.1); Creatinine Clr Calc Pharmacy 132.3 ml/min; Est GFR (African American) 118.8 ml/min; Est GFR (Non-African American) 102.5 ml/min; Potassium 3.8 mmol/L (3.5-5.1)
--- NOTE | 2021-12-20 08:14 | Hospitalist Progress Note ---
Date of Service December 20, 2021 Assessment & Plan (1) Generalized weakness: Plan: 81yo male with DM2, HTN, HLD, BPH, anxiety, depression, and tardive dyskinesia admitted with weakness and poor oral intake. Pneumonia: - likely secondary to recurrent aspiration given findings of silent aspiration on FEES - continue unasyn; stop date of 12/22 - Saturating well on 2L NC; wean as tolerated - will need to continue discussions with family regarding goals of care and permissive aspiration to ensure that family and patient are on the same page regarding goals of care in regard to known aspiration of oral secretions Weakness, deconditioning, poor PO intake - Progressive worsening prior to admission - Differential includes polypharmacy, poor PO intake, general deconditioning - No evidence of infection, metabolic encephalopathy, stroke this admission - Continue PT/OT; PT recommending SNF upon discharge - current pending placement arrangements - 12/17: holding mirtazepine and marinol in the setting of altered mental status Urinary retention: - Patient repeatedly required straight cath; patient denies abdominal pain or other symptoms - Likely secondary to polypharmacy as patient had recently been started on mirtazepine and marinol; holding mirtazepine and marinol at this time - Avalos placed 2/3 for recurrent cath concerns with no urge - Continue to monitor AMS, slurred speech, facial droop (resolved): - Symptom onset was some time between late 12/16 and early 12/17 - BP well-controlled - CT head without acute process; MRI negative for acute findings - Symptoms possibly secondary to recrudescence in the setting of pneumonia - Lipid profile reveals low LDL; change in statin therapy not indicated - A1c 5.9% Hypertension: - BP under good control on home amlodipine - Continue aspirin - Holding lasix, spironolactone given hypotension Skull fractures: - Age-indeterminate parietal and occipital skull fractures, new since March 2020 - Patient with no recollection of potential injuries, however on discussion with Dr. Gunderson injuries occurred over a year ago - No signs of external injury to suggest recent trauma - Cervical C-spine without con - no fracture or subluxation appreciated Type 2 Diabetes Mellitus: - Continue Levemir 10u daily with sliding scale coverage Diabetic peripheral neuropathy: - Continue gabapentin 300mg TID Anxiety, depression: - Continue mirtazapine, buspirone, aripiprazole Benign prostatic hyperplasia with urinary obstruction: - Continue finasteride, mirabegron - Follow urine output Tardive dyskinesia: - Continue ingrezza Diet: carb consistent; pureed Code status: full code DVT ppx: heparin (2) Skull fractures: (3) Hyperlipidemia: (4) Hypertension: (5) Type 2 diabetes mellitus: (6) Diabetic peripheral neuropathy: (7) Anxiety with depression: (8) Benign prostatic hyperplasia with urinary obstruction: (9) Tardive dyskinesia: (10) TERI (obstructive sleep apnea): (11) Cirrhosis, alcoholic: Admission and Anticipated Discharge Date Admission Date: December 06, 2021 Supervising Physician Co-Signing Physician Notes I personally examined the patient and verified all massey points of history and exam, discussed case, and agree with decision making with Dr Trammell Feeling okay breathing okay. Does not like modified diet. Discussed results of speech eval Vitals noted, in general he is awake and alert pleasant no distress. HEENT normocephalic atraumatic mucous membranes moist. Breathing unlabored no accessory muscle use good effort. Skin shows no rashes no pallor or icterus. Neuro without focal deficits. Pneumoniaantibiotics, oxygen, supportive care. Speech eval and treat appreciated. Almost certainly aspiration. Probably will only need about 5 maybe 7 days of antibioticsprogressing nicely. In discussion of his dysphagia/aspiration, it seems that he is likely to lean towards eating what he wants with permissive aspirationbut I wanted him to be able to discuss with his daughter and think about it a little bit more first. Altered mental status, resolvedstrongly suspect this was more likely grogginess and not having his dentures in. MRI negative for acute findings, and overall his work-up for any sort of an acute cerebrovascular event is fairly low in concern. Of course this cannot definitively rule out a TIAespecially in someb nadia with known/established cerebrovascular diseasebut everything overall appears to be much more in line with polypharmacy (Marinol and Remeron) and/or a mild metabolic encephalopathy (pneumonia). Improved weakness - for snf/rehab, ongoing PT/OT Subjective Patient seen this morning while eating breakfast, feels like he is overall doing the same; is not a fan of the pureed diet and would like to just have regular food. On discussions on the aspiration that was demonstrated during the FEES study, patient stated that the thing that bothers him most about the pureed foods, was the phrasing that it comes listed as on the paper and pointed to that the dinner menu states "Mold" on it, referring to the shaping of the pureed foods. Review of Systems Review of Systems: All systems reviewed & are unremarkable except as noted in Subjective Physical Exam Constitutional: comfortable; no acute distress Eyes: PERRL, conjunctivae normal, anicteric sclerae ENMT: external ear and nose normal, oropharynx normal Respiratory: normal respiratory effort, lungs clear to auscultation Gastrointestinal (Abdomen): normal bowel sounds, soft, nontender, no hepatosplenomegaly Percussion/Palpation: abdomen soft; abdomen nontender and no guarding Skin: no rashes, warm and dry Neurologic: no focal motor deficits Speech / Cognition: normal speech Psychiatric: A+Ox3, euthymic affect Results & Data Results & Data ([facility]) Vital Signs (Past 12 Hours) Vital Signs Temp Pulse Resp BP BP Pulse Ox 12/20/21 07:46 36.5 C 73 16 135/66 96 12/19/21 22:06 36.8 C 76 16 107/55 L 95 Laboratory Results 12/20/21 12/20/21 12/20/21 Range/Units 08:09 05:43 05:43 WBC 3.34 L (4.8-10.8) K/uL RBC 4.02 L (4.7-6.1) M/uL Hgb 12.3 L (14.0-18.0) g/dL Hct 36.7 L (42-52) % MCV 91.3 (80-100) fL MCH 30.6 (25-34) pg MCHC 33.5 (32-36) g/dL RDW Std Deviation 44.2 (36.4-46.3) fL RDW Coeff of Ja 13.3 (11.5-14.5) % Plt Count 84 L (130-400) K/uL MPV 11.0 H (7.4-10.4) fL Immature Gran % (Auto) 0.3 % Neut % (Auto) 74.8 % Lymph % (Auto) 15.3 % Dundy % (Auto) 8.1 % Eos % (Auto) 1.2 % Baso % (Auto) 0.3 % Neut # (Auto) 2.50 (1.4-6.5) K/uL Lymph # (Auto) 0.51 L (1.2-3.4) K/uL Dundy # (Auto) 0.27 (0.11-0.59) K/uL Eos # (Auto) 0.04 (0-0.5) K/uL Baso # (Auto) 0.01 (0-0.2) K/uL Immature Gran # (Auto) 0.01 (0.00-0.02) K/uL Sodium 136 (136-145) mmol/L Potassium 3.8 (3.5-5.1) mmol/L Chloride 102 (98-107) mmol/L Carbon Dioxide 29 (21-32) mmol/L Anion Gap 5 (3-11) BUN 11 (6-23) mg/dl Creatinine 0.49 L (0.6-1.4) mg/dl Est Cr Clr Drug Dosing 132.3 ml/min Est GFR ( Amer) 118.8 ml/min Est GFR (Non-Af Amer) 102.5 ml/min BUN/Creatinine Ratio 22.4 H (10-20) Glucose 111 H (70-99(Fasting)) mg/dl POC Glucose 123 H (70-99) mg/dl Calcium 8.9 (8.5-10.1) mg/dl 12/19/21 12/19/21 Range/Units 20:40 17:01 WBC (4.8-10.8) K/uL RBC (4.7-6.1) M/uL Hgb (14.0-18.0) g/dL Hct (42-52) % MCV (80-100) fL MCH (25-34) pg MCHC (32-36) g/dL RDW Std Deviation (36.4-46.3) fL RDW Coeff of Ja (11.5-14.5) % Plt Count (130-400) K/uL MPV (7.4-10.4) fL Immature Gran % (Auto) % Neut % (Auto) % Lymph % (Auto) % Dundy % (Auto) % Eos % (Auto) % Baso % (Auto) % Neut # (Auto) (1.4-6.5) K/uL Lymph # (Auto) (1.2-3.4) K/uL Dundy # (Auto) (0.11-0.59) K/uL Eos # (Auto) (0-0.5) K/uL Baso # (Auto) (0-0.2) K/uL Immature Gran # (Auto) (0.00-0.02) K/uL Sodium (136-145) mmol/L Potassium (3.5-5.1) mmol/L Chloride (98-107) mmol/L Carbon Dioxide (21-32) mmol/L Anion Gap (3-11) BUN (6-23) mg/dl Creatinine (0.6-1.4) mg/dl Est Cr Clr Drug Dosing ml/min Est GFR ( Amer) ml/min Est GFR (Non-Af Amer) ml/min BUN/Creatinine Ratio (10-20) Glucose (70-99(Fasting)) mg/dl POC Glucose 158 H 132 H (70-99) mg/dl Calcium (8.5-10.1) mg/dl Medications Administered Current Inpatient Medications Acetaminophen (Acetaminophen 325 Mg Tab) 650 mg PO Q4H PRN PRN Reason: pain Stop: 01/16/22 16:55 Amlodipine Besylate (Amlodipine Besylate 5 Mg Tab) [facility] [place]: 01/06/22 08:59 Last Admin: 12/20/21 09:12 Dose: 10 mg Documented by: Aripiprazole (Aripiprazole 15 Mg Tab) 7.5 mg PO [facility] Stop: 01/05/22 21:49 Last Admin: 12/19/21 21:24 Dose: 7.5 mg Documented by: Aspirin (Aspirin 81 Mg Chew) 81 [facility] [place]: 01/06/22 08:59 Last Admin: 12/20/21 09:17 Dose: 81 mg Documented by: Atorvastatin Calcium (Atorvastatin 20 Mg Tab) 20 mg PO QAM [facility] Stop: 01/06/22 08:59 Last Admin: 12/20/21 09:12 Dose: 20 mg Documented by: Buspirone HCl (Buspirone 15 Mg Tab) 30 mg PO BID@0830,1630 [facility] Stop: 01/06/22 08:29 Last Admin: 12/20/21 09:12 Dose: 30 mg Documented by: Dextrose (Dextrose 50% 50 Ml Syringe) 25 - 50 ml IV UD PRN; Protocol PRN Reason: Hypoglycemia Protocol Stop: 01/05/22 21:56 Finasteride (Finasteride 5 Mg Tab) 5 mg PO QAM [facility] Stop: 01/06/22 08:59 Last Admin: 12/20/21 09:12 Dose: 5 mg Documented by: Gabapentin (Gabapentin 300 Mg Cap) 300 mg PO TID [facility] Stop: 01/05/22 21:59 Last Admin: 12/20/21 09:12 Dose: 300 mg Documented by: Glucagon (Glucagon For Inj 1 Mg Vial) 1 mg SQ UD PRN; Protocol PRN Reason: Hypoglycemia Protocol Stop: 01/05/22 21:56 Glucose (Glucose 40% Gel 15 Gm Tube) 15 - 30 gm PO UD PRN; Protocol PRN Reason: Hypoglycemia Protocol Stop: 01/05/22 21:56 Glucose (Glucose 10 Tabs/Tube) 4 - 8 tabs PO UD PRN; Protocol PRN Reason: Hypoglycemia Protocol Stop: 01/05/22 21:56 Guaifenesin (Guaifenesin 600 Mg Tabcr) 600 mg PO Q12 [facility] Stop: 01/08/22 08:59 Last Admin: 12/20/21 09:12 Dose: 600 mg Documented by: Heparin Sodium (Porcine) (Heparin Sod 5,000 Unit/0.5 Ml Vial) 5,000 units SQ Q12 [facility] Stop: 01/05/22 21:59 Last Admin: 12/20/21 09:51 Dose: 5,000 units Documented by: Ampicillin Sodium/Sulbactam Sodium 1,500 mg/ Sodium Chloride 104 mls @ 200 mls/hr IV Q6H [facility]; Protocol Stop: 12/24/21 11:59 Last Admin: 12/20/21 12:10 Dose: 200 mls/hr Documented by: Insulin Aspart (Insulin Aspart Per Unit) 0 units SC ACHS [facility] Stop: 01/07/22 07:29 Last Admin: 12/20/21 09:42 Dose: 1 units Documented by: Insulin Detemir (Insulin Detemir Flexpen/Flex Touch 100 Units/Ml 3ml) 10 units SQ DAILY [facility] Stop: 01/06/22 08:59 Last Admin: 12/20/21 09:43 Dose: 10 units Documented by: Magnesium Oxide (Magnesium Oxide 400 Mg Tab) 400 mg PO QAM [facility] Stop: 01/06/22 08:59 Last Admin: 12/20/21 09:12 Dose: 400 mg Documented by: Melatonin (Melatonin 3 Mg Tab) 6 mg PO HS PRN PRN Reason: Insomnia Stop: 01/05/22 21:49 Mirabegron (Mirabegron Er 25 Mg Tab) 50 mg PO DAILY [facility] Stop: 01/06/22 08:59 Last Admin: 12/20/21 09:12 Dose: 50 mg Documented by: Miscellaneous (Carbohydrates For Hypoglycemia ) 15 - 30 gm PO UD PRN PRN Reason: Hypoglycemia Protocol Stop: 01/05/22 21:56 Multivitamins/Minerals (Calcium 600mg + Vit D 400 Iu Tab) 1 tab PO QAM [facility] Stop: 01/06/22 08:59 Last Admin: 12/20/21 09:12 Dose: 1 tab Documented by: Multivitamins/Minerals (Cerovite Adv Formula Tab) 1 tab PO QAM [facility] Stop: 01/06/22 08:59 Last Admin: 12/20/21 09:12 Dose: 1 tab Documented by: *Ingrezza 40 Mg*Non- Formulary Patient's Own Med 1 ea PO DAILY [facility]; Protocol Stop: 01/06/22 08:59 Last Admin: 12/20/21 09:51 Dose: 1 cap Documented by: Pantoprazole Sodium (Pantoprazole 40 Mg Tab) 40 mg PO QAM [facility] Stop: 01/06/22 08:59 Last Admin: 12/20/21 09:12 Dose: 40 mg Documented by: Polyethylene Glycol (Polyethylene (Miralax) 17 Gm Pack) 17 gm PO DAILY [facility] Stop: 01/06/22 16:14 Last Admin: 12/20/21 09:13 Dose: Not Given Documented by: Vitamin B Complex (Vitamin B Complex Tab) 1 tab PO QAM [facility] Stop: 01/06/22 08:59 Last Admin: 12/20/21 09:12 Dose: 1 tab Documented by: Vitamin D (Cholecalciferol 1,000 Units 25 Mcg Tab) 2,000 units PO QAM [facility] Stop: 01/06/22 08:59 Last Admin: 12/20/21 09:12 Dose: 2,000 units Documented by: Resident Activity Tracking Resident Involvement: Resident Care Provided Care Provided: Adult [facility] Medicine
[2021-12-20] MEDS: CHOLECALCIFEROL 1,000 UNITS 25 MCG TAB PO SCH (09:12)
[2021-12-20] MEDS: FINASTERIDE 5 MG TAB PO SCH (09:12)
[2021-12-20] MEDS: amLODIPine BESYLATE 5 MG TAB PO SCH (09:12)
[2021-12-20] MEDS: MAGNESIUM OXIDE 400 MG TAB PO SCH (09:12)
[2021-12-20] MEDS: ATORVASTATIN 20 MG TAB PO SCH (09:12)
[2021-12-20] MEDS: MIRABEGRON ER 25 MG TAB PO SCH (09:12)
[2021-12-20] MEDS: CALCIUM 600MG + VIT D 400 IU TAB PO SCH (09:12)
[2021-12-20] MEDS: GABAPENTIN 300 MG CAP PO SCH ×3 (09:12→20:50)
[2021-12-20] MEDS: CEROVITE ADV FORMULA TAB PO SCH (09:12)
[2021-12-20] MEDS: VITAMIN B COMPLEX TAB PO SCH (09:12)
[2021-12-20] MEDS: guaiFENesin 600 MG TABCR PO SCH ×2 (09:12→20:49)
[2021-12-20] MEDS: busPIRone 15 MG TAB PO SCH ×2 (09:12→16:00)
[2021-12-20] MEDS: PANTOprazole 40 MG TAB PO SCH (09:12)
[2021-12-20] MEDS: POLYETHYLENE (MIRALAX) 17 GM PACK PO SCH (09:13)
[2021-12-20] MEDS: ASPIRIN 81 MG CHEW PO SCH (09:17)
[2021-12-20] MEDS: INSULIN ASPART PER UNIT SC SCH ×4 (09:42→21:37)
[2021-12-20] MEDS: INSULIN DETEMIR FLEXPEN/FLEX TOUCH 100 UNITS/ML 3ML SQ SCH (09:43)
[2021-12-20] MEDS: INGREZZA 40 MG PO SCH (09:51)
[2021-12-20] MEDS: HEPARIN SOD 5,000 UNIT/0.5 ML VIAL SQ SCH ×2 (09:51→20:50)
--- NOTE | 2021-12-20 19:36 | Billing Data ---
Date of Service December 20, 2021 Coding Level of Care Code 73821 Subseq Hosp Care Lvl 3
[2021-12-20] MEDS: ARIPiprazole 15 MG TAB PO SCH (20:50)
[2021-12-21] MEDS: AMPICILLIN/SULBACTAM SOD 1,500 MG in 0.9 % SODIUM CHLORIDE 100 ML IV SCH ×5 (00:02→23:37)
--- NOTE | 2021-12-21 07:36 | Hospitalist Progress Note ---
Date of Service December 21, 2021 Assessment & Plan (1) Generalized weakness: Plan: 81yo male with DM2, HTN, HLD, BPH, anxiety, depression, and tardive dyskinesia admitted with weakness and poor oral intake. Pneumonia: - Brief episode of hypoxia earlier this admission, resolved with home oxygen. Patient is on 2-3LNC at baseline per Pulmonology note 01/2020 for Hx mixed restrictive and obstructive pulmonary disease. - CXR on admission with hazy bibasilar opacities, pneumonia vs. mild pulmonary edema. Repeat XR with interval worsening of the same. - Suspicious of aspiration pneumonia, especially given findings of significant silent aspiration on FEES. - Continue Unasyn with stop date 12/22. - Saturating well on 2L NC; wean as tolerated. - Patient desires permissive aspiration. Discussion had with patient and with family about likelihood of repeated admissions for aspiration pneumonias if he eats the foods he desires. Urinary retention, BPH: - Fields placed 2/3 for recurrent straight cath. - Continue finasteride, mirabegron. - Trial fields removal today; bladder scan qshift with straight cath as needed if bladder scan post-void >550mL. - Follow urine output. Weakness, deconditioning, poor PO intake: - Progressive worsening prior to admission. - Differential includes infection (pneumonia), polypharmacy, general deconditioning. - Head CT and Brain MRI without evidence of CVA. - Treatment of pneumonia as outlined above. - Mirtazapine and Marinol currently held due to AMS on 12/17. - Continue PT/OT; PT recommending SNF upon discharge. Pending placement. AMS, slurred speech, facial droop (resolved): - Symptom onset was some time between late 12/16 and early 12/17. - CT head without acute process; MRI negative for acute findings. - Differential includes stroke recrudescence in the setting of acute infection, hospital delirium. - Lipid profile reveals low LDL; change in statin therapy not indicated. - A1c 5.9%. Hypertension: - BP under good control on home amlodipine. - Continue aspirin. - Holding Lasix, spironolactone given hypotension. Type 2 Diabetes Mellitus: - Continue Levemir 10u daily with sliding scale coverage. Diabetic peripheral neuropathy: - Continue gabapentin 300mg TID. Anxiety, depression: - Continue buspirone, aripiprazole. Tardive dyskinesia: - Continue Ingrezza. Skull fractures: - Age-indeterminate parietal and occipital skull fractures, new since March 2020. - Patient with no recollection of previous injuries, however on discussion with PCP injuries occurred over a year ago. - No signs of external injury to suggest recent trauma. - Cervical C-spine without con - no fracture or subluxation appreciated. Code status: FULL CODE Diet: DM2 diet DVT ppx: heparin Dispo: Med/Surg (2) Skull fractures: (3) Hyperlipidemia: (4) Hypertension: (5) Type 2 diabetes mellitus: (6) Diabetic peripheral neuropathy: (7) Anxiety with depression: (8) Benign prostatic hyperplasia with urinary obstruction: (9) Tardive dyskinesia: Admission and Anticipated Discharge Date Admission Date: December 06, 2021 Supervising Physician Co-Signing Physician Notes I personally examined the patient and verified all massey points of history and exam, discussed case, and agree with decision making with Dr Garber sleeping comfortably no distress Vitals noted, in general he is sleeping comfortably, no distress. HEENT normocephalic atraumatic mucous membranes moist. Breathing unlabored no accessory muscle use good effort. Skin shows no rashes no pallor or icterus. Neuro without focal deficits at rest. Pneumoniaantibiotics, oxygen, supportive care. Speech eval and treat appreciated. Almost certainly aspiration. probably stop abx after day 5. he is considering options although in discussions i strongly suspect he will choose permissive aspiration Altered mental status, resolvedstrongly suspect this was more likely grogginess and not having his dentures in. MRI negative for acute findings, and overall his work-up for any sort of an acute cerebrovascular event is fairly low in concern. Of course this cannot definitively rule out a TIAespecially in somebody with known/established cerebrovascular diseasebut everything overall appears to be much more in line with polypharmacy (Marinol and Remeron) and/or a mild metabolic encephalopathy (pneumonia). Improved weakness - for snf/rehab, continue PT/OT Subjective Overnight no acute events. This morning patient denies chest pain, shortness of breath, abdominal pain, fevers or chills. He is currently still on 2LNC. On review of Pulm notes from 2019, patient at home has oxygen 2-3 LNC at baseline but is noncomplaint with inhalers and oxygen. Review of Systems Review of Systems: All systems reviewed & are unremarkable except as noted in HPI & below Constitutional: no fever, no chills and no malaise Respiratory: no cough and no dyspnea Cardiovascular: no chest pain, no palpitations and no edema Gastrointestinal: no abdominal pain, no constipation and no diarrhea/loose stools Physical Exam Constitutional: well developed and comfortable; no acute distress Respiratory: normal respiratory effort, lungs clear to auscultation Gastrointestinal (Abdomen): Percussion/Palpation: abdomen soft; abdomen nontender and no guarding Skin: no rashes, warm and dry Neurologic: no focal motor deficits Speech / Cognition: normal speech Psychiatric: A+Ox3, euthymic affect Results & Data Results & Data ([facility]) Vital Signs (Past 12 Hours) Vital Signs Temp Pulse Resp BP Pulse Ox 12/20/21 23:36 36.5 C 74 16 120/58 L 94 Resident Activity Tracking Resident Involvement: Resident Care Provided Care Provided: Adult Hospital Medicine
[2021-12-21] MEDS: busPIRone 15 MG TAB PO SCH ×2 (08:01→16:58)
[2021-12-21] MEDS: CALCIUM 600MG + VIT D 400 IU TAB PO SCH (08:01)
[2021-12-21] MEDS: HEPARIN SOD 5,000 UNIT/0.5 ML VIAL SQ SCH ×2 (08:01→20:00)
[2021-12-21] MEDS: PANTOprazole 40 MG TAB PO SCH (08:01)
[2021-12-21] MEDS: VITAMIN B COMPLEX TAB PO SCH (08:01)
[2021-12-21] MEDS: ATORVASTATIN 20 MG TAB PO SCH (08:01)
[2021-12-21] MEDS: MIRABEGRON ER 25 MG TAB PO SCH (08:02)
[2021-12-21] MEDS: amLODIPine BESYLATE 5 MG TAB PO SCH (08:02)
[2021-12-21] MEDS: GABAPENTIN 300 MG CAP PO SCH ×3 (08:03→20:01)
[2021-12-21] MEDS: MAGNESIUM OXIDE 400 MG TAB PO SCH (08:03)
[2021-12-21] MEDS: guaiFENesin 600 MG TABCR PO SCH ×2 (08:03→20:00)
[2021-12-21] MEDS: CHOLECALCIFEROL 1,000 UNITS 25 MCG TAB PO SCH (08:03)
[2021-12-21] MEDS: FINASTERIDE 5 MG TAB PO SCH (08:03)
[2021-12-21] MEDS: CEROVITE ADV FORMULA TAB PO SCH (08:04)
[2021-12-21] MEDS: INGREZZA 40 MG PO SCH (08:04)
[2021-12-21] MEDS: POLYETHYLENE (MIRALAX) 17 GM PACK PO SCH (08:05)
[2021-12-21] MEDS: ASPIRIN 81 MG CHEW PO SCH (08:06)
[2021-12-21] MEDS: INSULIN ASPART PER UNIT SC SCH ×4 (08:42→21:24)
[2021-12-21] MEDS: INSULIN DETEMIR FLEXPEN/FLEX TOUCH 100 UNITS/ML 3ML SQ SCH (08:43)
--- NOTE | 2021-12-21 16:32 | Billing Data ---
Date of Service December 21, 2021 Coding Level of Care Code 87183 Subseq Hosp Care Lvl 2
[2021-12-21] MEDS: ARIPiprazole 15 MG TAB PO SCH (20:00)
[2021-12-22] MEDS: AMPICILLIN/SULBACTAM SOD 1,500 MG in 0.9 % SODIUM CHLORIDE 100 ML IV SCH (05:20)
--- NOTE | 2021-12-22 06:49 | Hospitalist Progress Note ---
Date of Service December 22, 2021 Assessment & Plan (1) Generalized weakness: Plan: 81 yo male with DM2, HTN, HLD, BPH, anxiety, depression, and tardive dyskinesia admitted with weakness and poor oral intake. Pneumonia: - Brief episode of hypoxia earlier this admission, resolved with home oxygen. Patient is on 2-3LNC at baseline per Pulmonology note 01/2020 for Hx mixed restrictive and obstructive pulmonary disease. - CXR on admission with hazy bibasilar opacities, pneumonia vs. mild pulmonary edema. Repeat XR with interval worsening of the same. - Suspicious of aspiration pneumonia, especially given findings of significant silent aspiration on FEES. - Finished course of Unasyn today (12/22). - Patient desires permissive aspiration. Discussion had with patient and with family about likelihood of repeated admissions in the future for aspiration pneumonia if he eats the foods he desires. Easy to chew diet ordered. Urinary retention, BPH: - Avalos placed 2/3 for recurrent straight cath. - Continue finasteride, mirabegron. - Will keep an eye on voiding today, but suspect patient voids less frequently during the day as his baseline, and do not want to cause traumatic injury to the urethra with repeated straight caths when patient feels well. - Encouraged PO intake of fluids. Weakness, deconditioning, poor PO intake: - Progressive worsening prior to admission. - Differential includes infection, polypharmacy, general deconditioning. - Head CT and Brain MRI without evidence of CVA. - Treatment of aspiration pneumonia as outlined above. - Mirtazapine and Marinol currently held due to AMS on 12/17. - Continue PT/OT; PT recommending SNF upon discharge. Pending placement. AMS, slurred speech, facial droop (resolved): - Symptom onset was some time between late 12/16 and early 12/17. - CT head without acute process; MRI negative for acute findings. - Differential includes stroke recrudescence in the setting of acute infection, hospital delirium. - Lipid profile reveals low LDL; change in statin therapy not indicated. - A1c 5.9%. Hypertension: - BP under good control on home amlodipine. - Continue aspirin. - Holding Lasix, spironolactone given hypotension. Type 2 Diabetes Mellitus: - Continue Levemir 10u daily with sliding scale coverage. Diabetic peripheral neuropathy: - Continue gabapentin 300mg TID. Anxiety, depression: - Continue buspirone, aripiprazole. Tardive dyskinesia: - Continue Ingrezza. Skull fractures: - Age-indeterminate parietal and occipital skull fractures, new since March 2020. - Patient with no recollection of previous injuries, however on discussion with PCP injuries occurred over a year ago. - No signs of external injury to suggest recent trauma. - Cervical C-spine without con - no fracture or subluxation appreciated. Code status: FULL CODE Diet: DM2 diet DVT ppx: heparin Dispo: Med/Surg (2) Skull fractures: (3) Hyperlipidemia: (4) Hypertension: (5) Type 2 diabetes mellitus: (6) Diabetic peripheral neuropathy: (7) Anxiety with depression: (8) Benign prostatic hyperplasia with urinary obstruction: (9) Tardive dyskinesia: Admission and Anticipated Discharge Date Admission Date: December 06, 2021 Supervising Physician Co-Signing Physician Notes I personally examined the patient and verified all massey points of history and exam, discussed case, and agree with decision making with Dr Garber eating lunch. disgusted with modified diet. revisited permissive aspiration discussions - he is completely clear that this would be his preferred course of action, and understands risks/bneeifts Vitals noted, in general he is awake, pleasant, no distress. HEENT normocephalic atraumatic mucous membranes moist. Breathing unlabored no accessory muscle use good effort. Skin shows no rashes no pallor or icterus. Neuro without focal deficits at rest. Pneumoniaantibiotics, oxygen, supportive care. Speech eval and treat appreciated. Almost certainly aspiration. stop abx today. chooses permissive aspiration - will change diet. Altered mental status, resolvedstrongly suspect this was more likely grogginess and not having his dentures in. MRI negative for acute findings, and overall his work-up for any sort of an acute cerebrovascular event is fairly low in concern. Of course this cannot definitively rule out a TIAespecially in somebody with known/established cerebrovascular diseasebut everything overall appears to be much more in line with polypharmacy (Marinol and Remeron) and/or a mild metabolic encephalopathy (pneumonia). Improved weakness - for snf/rehab once available, continue PT/OT Subjective Overnight resident was called due to no voiding for 12 hours. Bladder scanned f or 450cc. Did try to straight cath however patient declined. This morning patient denies chest pain, shortness of breath, abdominal pain, fevers or chills. He is currently on room air. He admits that he only urinates a few times a day on a typical day. Review of Systems Review of Systems: All systems reviewed & are unremarkable except as noted in Subjective Physical Exam Constitutional: well developed and comfortable; no acute distress Respiratory: normal respiratory effort, lungs clear to auscultation Gastrointestinal (Abdomen): Percussion/Palpation: abdomen soft; abdomen nontender and no guarding Skin: no rashes, warm and dry Neurologic: no focal motor deficits Speech / Cognition: normal speech Psychiatric: A+Ox3, euthymic affect Results & Data Results & Data ([facility]) Vital Signs (Past 12 Hours) Vital Signs Temp Pulse Resp BP Pulse Ox 12/21/21 21:19 36.5 C 79 15 122/63 93 Resident Activity Tracking Resident Involvement: Resident Care Provided Care Provided: Adult Hospital Medicine
[2021-12-22 07:28] LABS: Hematocrit (blood only) 35.2 % (42-52); Hemoglobin 11.4 g/dL (14.0-18.0); Mean Corpuscular Hemoglobin 30.2 pg (25-34); Mean Corpuscular Hgb Conc 32.4 g/dL (32-36); Mean Corpuscular Volume 93.1 fL (80-100); RDW Coefficient of Variation 13.5 % (11.5-14.5); RDW Standard Deviation 46.5 fL (36.4-46.3); Red Blood Count 3.78 M/uL (4.7-6.1); White Blood Count 2.73 K/uL (4.8-10.8)
[2021-12-22 07:33] LABS: Mean Platelet Volume 10.8 fL (7.4-10.4); Platelet Count 88 K/uL (130-400)
[2021-12-22 07:54] LABS: BUN Creatinine Ratio 31.1 (10-20); Calcium 8.7 mg/dl (8.5-10.1); Est GFR (Non-African American) 106.1 ml/min; Potassium 3.9 mmol/L (3.5-5.1)
[2021-12-22 07:58] LABS: Eosinophils # (auto) 0.03 K/uL (0-0.5); Eosinophils % (auto) 1.1 %; Immature Granulocytes # (auto) 0.01 K/uL (0.00-0.02); Immature Granulocytes % (auto) 0.4 %; Lymphocytes # (auto) 0.62 K/uL (1.2-3.4); Lymphocytes % (auto) 22.7 %; Monocytes # (auto) 0.18 K/uL (0.11-0.59); Monocytes % (auto) 6.6 %; Neutrophils # (auto) 1.89 K/uL (1.4-6.5); Neutrophils % (auto) 69.2 %
[2021-12-22] MEDS: guaiFENesin 600 MG TABCR PO SCH ×2 (08:20→20:26)
[2021-12-22] MEDS: GABAPENTIN 300 MG CAP PO SCH ×3 (08:20→20:26)
[2021-12-22] MEDS: HEPARIN SOD 5,000 UNIT/0.5 ML VIAL SQ SCH ×2 (08:20→20:27)
[2021-12-22] MEDS: INGREZZA 40 MG PO SCH (08:22)
[2021-12-22] MEDS: CHOLECALCIFEROL 1,000 UNITS 25 MCG TAB PO SCH (08:23)
[2021-12-22] MEDS: ATORVASTATIN 20 MG TAB PO SCH (08:23)
[2021-12-22] MEDS: MAGNESIUM OXIDE 400 MG TAB PO SCH (08:23)
[2021-12-22] MEDS: VITAMIN B COMPLEX TAB PO SCH (08:23)
[2021-12-22] MEDS: MIRABEGRON ER 25 MG TAB PO SCH (08:23)
[2021-12-22] MEDS: PANTOprazole 40 MG TAB PO SCH (08:24)
[2021-12-22] MEDS: amLODIPine BESYLATE 5 MG TAB PO SCH (08:24)
[2021-12-22] MEDS: busPIRone 15 MG TAB PO SCH ×2 (08:24→17:33)
[2021-12-22] MEDS: CEROVITE ADV FORMULA TAB PO SCH (08:24)
[2021-12-22] MEDS: CALCIUM 600MG + VIT D 400 IU TAB PO SCH (08:24)
[2021-12-22] MEDS: FINASTERIDE 5 MG TAB PO SCH (08:24)
[2021-12-22] MEDS: ASPIRIN 81 MG CHEW PO SCH (08:25)
[2021-12-22] MEDS: POLYETHYLENE (MIRALAX) 17 GM PACK PO SCH (08:25)
[2021-12-22] MEDS: INSULIN DETEMIR FLEXPEN/FLEX TOUCH 100 UNITS/ML 3ML SQ SCH (09:07)
[2021-12-22] MEDS: INSULIN ASPART PER UNIT SC SCH ×4 (09:09→20:33)
--- NOTE | 2021-12-22 16:09 | Billing Data ---
Date of Service December 22, 2021 Coding Level of Care Code 92371 Subseq Hosp Care Lvl 3
[2021-12-22] MEDS: ARIPiprazole 15 MG TAB PO SCH (20:27)
--- NOTE | 2021-12-23 06:34 | Hospitalist Progress Note ---
Date of Service December 23, 2021 Assessment & Plan (1) Generalized weakness: Plan: 81 yo male with DM2, HTN, HLD, BPH, anxiety, depression, and tardive dyskinesia admitted with weakness and poor oral intake. Stable. Aspiration pneumonia, resolved: - Brief episode of hypoxia earlier this admission, resolved with home oxygen. Patient is on 2-3LNC at baseline per Pulmonology note 01/2020 for Hx mixed restrictive and obstructive pulmonary disease. - CXR on admission with hazy bibasilar opacities, pneumonia vs. mild pulmonary edema. Repeat XR with interval worsening of the same. - Suspicious of aspiration pneumonia, especially given findings of significant silent aspiration on FEES. - Finished course of Unasyn (12/22). - Patient desires permissive aspiration. Discussion had with patient and with family about likelihood of repeated admissions in the future for aspiration pneumonia if he eats the foods he desires. Easy to chew diet ordered. Weakness, deconditioning, poor PO intake: - Progressive worsening prior to admission. - Differential includes infection, polypharmacy, general deconditioning. - Head CT and Brain MRI without evidence of CVA. - Treatment of aspiration pneumonia as outlined above. - Mirtazapine and Marinol currently held due to AMS on 12/17. - Continue PT/OT; PT recommending SNF upon discharge. Pending placement. Urinary retention, BPH: - Avalos placed 12/19 for recurrent straight cath. - Continue finasteride, mirabegron. - Encouraged PO intake of fluids. Thrombocytopenia, chronic, stable - Per chart review (prior d/c summary), was seen by hematology in 2018; noted thrombocytopenia likely related to chronic Hepatitis C. AMS, slurred speech, facial droop (resolved): Possible TIA - Symptom onset was some time between late 12/16 and early 12/17. - CT head without acute process; MRI negative for acute findings. - Differential includes stroke recrudescence in the setting of acute infection, hospital delirium. - Lipid profile reveals low LDL; change in statin therapy not indicated. - A1c 5.9%. Hypertension: - BP under good control on home amlodipine. - Continue aspirin. - Holding Lasix, spironolactone given hypotension. Type 2 Diabetes Mellitus: - Continue Levemir 10u daily with sliding scale coverage. Diabetic peripheral neuropathy: - Continue gabapentin 300mg TID. Anxiety, depression: - Continue buspirone, aripiprazole. Tardive dyskinesia: - Continue Ingrezza. Skull fractures: - Age-indeterminate parietal and occipital skull fractures, new since March 2020. - Patient with no recollection of previous injuries, however on discussion with PCP injuries occurred over a year ago. - No signs of external injury to suggest recent trauma. - Cervical C-spine without con - no fracture or subluxation appreciated. Code status: FULL CODE Diet: DM2 diet easy to chew DVT ppx: heparin Dispo: Med/Surg, awaiting placement. Has placement at [facility] 12/24/21, but CM looking at alternatives at daughter's request. Will order covid test once details confirmed. (2) Skull fractures: (3) Hyperlipidemia: (4) Hypertension: (5) Type 2 diabetes mellitus: (6) Diabetic peripheral neuropathy: (7) Anxiety with depression: (8) Benign prostatic hyperplasia with urinary obstruction: (9) Tardive dyskinesia: (10) Thrombocytopenia: Admission and Anticipated Discharge Date Admission Date: December 06, 2021 Supervising Physician Co-Signing Physician Notes Resident Physician Supervision Note: I independently interviewed and examined the patient and verified the massey history and physical, reviewed labs and image studies and agree with resident Dr. Monge findings and care plan. Subjective Feeling ok. Did not sleep well, interrupted. Eating breakfast. Denies other ROS. No SOB. Slight cough. Review of Systems Review of Systems: All systems reviewed & are unremarkable except as noted in HPI & below Physical Exam Physical Exam: General: Grossly A&O. NAD. Cooperative. HEENT: Atraumatic, normocephalic. Pulm: CTAB. -wheezes, -rales, -rhonchi. No respiratory distress. Lungs clear. Cardiac: RRR, -mrg. Very slight trace BLE Abdominal: Nontender, nondistended, soft. Integ: Faint venous stasis change, glossy appearance of LLE. Results & Data Results & Data ([facility]) Vital Signs (Past 12 Hours) Vital Signs vitals stable, but had 91 sat x1. Temp Pulse Resp BP Pulse Ox 12/22/21 23:10 36.8 C 63 20 122/67 95 Laboratory Results cbc stable. Hb 12.2 stable. leukopenia 2.95, stable. Plts 83L stable chronic. bmp stable. 12/17 echo EF 50-55. 1/ [facility] final Resident Activity Tracking Resident Involvement: Resident Care Provided Care Provided: Adult Hospital Medicine
[2021-12-23] MEDS: HEPARIN SOD 5,000 UNIT/0.5 ML VIAL SQ SCH ×2 (07:37→20:55)
[2021-12-23] MEDS: CEROVITE ADV FORMULA TAB PO SCH (07:37)
[2021-12-23] MEDS: INGREZZA 40 MG PO SCH (07:37)
[2021-12-23] MEDS: ATORVASTATIN 20 MG TAB PO SCH (07:38)
[2021-12-23] MEDS: FINASTERIDE 5 MG TAB PO SCH (07:38)
[2021-12-23] MEDS: CALCIUM 600MG + VIT D 400 IU TAB PO SCH (07:38)
[2021-12-23] MEDS: GABAPENTIN 300 MG CAP PO SCH ×3 (07:39→20:55)
[2021-12-23] MEDS: amLODIPine BESYLATE 5 MG TAB PO SCH (07:41)
[2021-12-23] MEDS: MAGNESIUM OXIDE 400 MG TAB PO SCH (07:42)
[2021-12-23] MEDS: PANTOprazole 40 MG TAB PO SCH (07:43)
[2021-12-23] MEDS: MIRABEGRON ER 25 MG TAB PO SCH (07:43)
[2021-12-23] MEDS: guaiFENesin 600 MG TABCR PO SCH ×2 (07:43→20:55)
[2021-12-23] MEDS: CHOLECALCIFEROL 1,000 UNITS 25 MCG TAB PO SCH (07:44)
[2021-12-23] MEDS: busPIRone 15 MG TAB PO SCH ×2 (07:45→16:52)
[2021-12-23] MEDS: VITAMIN B COMPLEX TAB PO SCH (07:45)
[2021-12-23] MEDS: ASPIRIN 81 MG CHEW PO SCH (07:48)
[2021-12-23] MEDS: POLYETHYLENE (MIRALAX) 17 GM PACK PO SCH ×2 (07:48→07:50)
[2021-12-23 07:50] LABS: Hematocrit (blood only) 37.3 % (42-52); Hemoglobin 12.2 g/dL (14.0-18.0); Mean Corpuscular Hemoglobin 30.5 pg (25-34); Mean Corpuscular Hgb Conc 32.7 g/dL (32-36); Mean Corpuscular Volume 93.3 fL (80-100); RDW Coefficient of Variation 13.5 % (11.5-14.5); RDW Standard Deviation 46.2 fL (36.4-46.3); White Blood Count 2.95 K/uL (4.8-10.8)
[2021-12-23 07:59] LABS: Mean Platelet Volume 10.6 fL (7.4-10.4); Platelet Count 83 K/uL (130-400)
[2021-12-23 08:08] LABS: BUN Creatinine Ratio 27.1 (10-20); Est GFR (African American) 119.8 ml/min; Est GFR (Non-African American) 103.4 ml/min; Potassium 3.8 mmol/L (3.5-5.1)
[2021-12-23 08:09] LABS: Eosinophils # (auto) 0.06 K/uL (0-0.5); Lymphocytes # (auto) 0.71 K/uL (1.2-3.4); Lymphocytes % (auto) 24.1 %; Monocytes # (auto) 0.22 K/uL (0.11-0.59); Monocytes % (auto) 7.5 %; Neutrophils # (auto) 1.96 K/uL (1.4-6.5); Neutrophils % (auto) 66.4 %
[2021-12-23] MEDS: INSULIN ASPART PER UNIT SC SCH ×4 (08:53→21:46)
[2021-12-23] MEDS: INSULIN DETEMIR FLEXPEN/FLEX TOUCH 100 UNITS/ML 3ML SQ SCH (08:54)
[2021-12-23] MEDS: ARIPiprazole 15 MG TAB PO SCH (20:54)
[2021-12-24 06:41] LABS: Hematocrit (blood only) 35.1 % (42-52); Hemoglobin 11.7 g/dL (14.0-18.0); Mean Corpuscular Hemoglobin 30.8 pg (25-34); Mean Corpuscular Hgb Conc 33.3 g/dL (32-36); Mean Corpuscular Volume 92.4 fL (80-100); Platelet Count 85 K/uL (130-400); White Blood Count 3.06 K/uL (4.8-10.8)
[2021-12-24 06:53] LABS: BUN Creatinine Ratio 31.3 (10-20); Calcium 8.9 mg/dl (8.5-10.1); Est GFR (African American) 119.8 ml/min; Est GFR (Non-African American) 103.4 ml/min
[2021-12-24 07:04] LABS: Eosinophils # (auto) 0.04 K/uL (0-0.5); Eosinophils % (auto) 1.3 %; Immature Granulocytes # (auto) 0.01 K/uL (0.00-0.02); Immature Granulocytes % (auto) 0.3 %; Lymphocytes # (auto) 0.66 K/uL (1.2-3.4); Lymphocytes % (auto) 21.6 %; Monocytes # (auto) 0.23 K/uL (0.11-0.59); Monocytes % (auto) 7.5 %; Neutrophils # (auto) 2.12 K/uL (1.4-6.5); Neutrophils % (auto) 69.3 %
--- NOTE | 2021-12-24 07:35 | Discharge Summary ---
Date of Service December 24, 2021 Admission HPI Per Admitting Provider Chief Complaint: The patient presents to the emergency department with progressive generalized weakness, decreased oral intake and ambulatory dysfunction. 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 He presents to the emergency department with generalized weakness, decreased oral intake and ambulatory dysfunction, despite home care with caretakers. Admission Exam Per Admitting Provider The patient is awake, slow to respond, normocephalic and atraumatic, lying in bed and in no acute distress. HEENT--PERRL, EOMI, mucous membranes and oropharynx dry. Neck--supple. No JVD. No bruits. Thyroid normal, trachea midline, no adenopathy. Heart--normal S1 and S2. No murmurs, rubs or gallops. Lungs--clear bilaterally, no respiratory distress, no accessory muscle use. Abdomen--normal bowel sounds and soft. Nontender. Nondistended, no hernias or masses, no organomegaly. Extremities--no cyanosis or clubbing. No edema. Dermatologic--normal skin turgor, normal color, no abnormal lymph nodes, no rash. Neurologic--cranial nerves II through XII grossly intact. Rheumatologic--limited exam Psychiatric--flat affect. Principal Diagnosis generalized weakness Discharge Exam subj: No complaints. No Fever, headache, dizziness, chest pain, SOB vitals reviewed, stable. 91-93 sat on RA cbc stable. wbc 3.06. Hb 11.7. Plt 85. bmp stable. General: A&Ox4. NAD. Cooperative. HEENT: Atraumatic, normocephalic. Pulm: CTAB. -wheezes, -rales, -rhonchi. No respiratory distress. Lungs clear. Cardiac: RRR, -mrg. Trace BLE Abdominal: Nontender, nondistended, soft. Discharge Data Allergies Allergy/AdvReac Type Severity Reaction Status Date / Time cyclobenzaprine Allergy Severe COLLAPSE Verified 12/06/21 17:12 morphine Allergy Intermediate other Verified 12/06/21 17:12 lisinopril Allergy Mild UNKNOWN Verified 12/06/21 17:12 pioglitazone Allergy Mild UNKNOWN Verified 12/06/21 17:12 prochlorperazine Allergy Mild UNKNOWN Verified 12/06/21 17:12 beet Allergy Unknown Unknown Verified 12/17/21 17:00 carisoprodol [From Soma] Allergy Unknown ON [facility] Verified 12/06/21 17:12 LIST glimepiride Allergy Unknown Unknown Rxn Verified 12/06/21 17:12 lamotrigine [From Lamictal] Allergy Unknown [facility] LIST Verified 12/06/21 17:12 mirtazapine Allergy Unknown UNKNOWN Verified 12/06/21 17:12 olmesartan [From Benicar] Allergy Unknown ON [facility] Verified 12/06/21 17:12 LIST quetiapine [From Seroquel] Allergy Unknown ON [facility] Verified 12/06/21 17:12 LIST tamsulosin [From Flomax] Allergy Unknown [facility] LIST Verified 12/06/21 17:12 telmisartan [From Micardis] Allergy Unknown ON [facility] Verified 12/06/21 17:12 LIST hydrochlorothiazide AdvReac Mild WEIGHT Verified 12/06/21 17:12 GAIN,DIZZINESS , FALLS streptomycin AdvReac Mild REMOTE Verified 12/06/21 17:12 RXN, "TINGLING IN LEGS" DENIES SOB/RASH tazobactam AdvReac Mild REDNESS AT Verified 12/06/21 17:12 INJECTION SITE triamterene AdvReac Mild WEIGHT Verified 12/06/21 17:12 GAIN,DIZZINESS , FALLS propoxyphene AdvReac Unknown UNKNOWN Verified 12/06/21 17:12 Consultations 12/06/21 20:26 ED Decision to Admit Stat Ordered Studies 12/06/21 17:01 CT head/brain wo con Stat 12/07/21 01:28 CT cervical spine wo con Urgent 12/17/21 03:17 CT head/brain wo con Urgent 12/18/21 00:00 MR brain wo con Urgent Hospital Course (1) Generalized weakness: 81 yo male with DM2, HTN, HLD, BPH, anxiety, depression, and tardive dyskinesia admitted with weakness and poor oral intake. Stable. Aspiration pneumonia, resolved: - Brief episode of hypoxia earlier this admission, resolved with home oxygen. Patient is on 2-3LNC at baseline per Pulmonology note 01/2020 for Hx mixed restrictive and obstructive pulmonary disease. - CXR on admission with hazy bibasilar opacities, pneumonia vs. mild pulmonary edema. Repeat XR with interval worsening of the same. - Suspicious of aspiration pneumonia, especially given findings of significant silent aspiration on FEES. - Finished course of Unasyn (12/22). - Patient desires permissive aspiration. Discussion had with patient and with family about likelihood of repeated admissions in the future for aspiration pneumonia if he eats the foods he desires. Easy to chew diet ordered. Weakness, deconditioning, poor PO intake: - Progressive worsening prior to admission. - Differential includes infection, polypharmacy, general deconditioning. - Head CT and Brain MRI without evidence of CVA. - Treatment of aspiration pneumonia as outlined above. - Mirtazapine and Marinol currently held due to AMS on 12/17. - Continue PT/OT; PT recommending SNF upon discharge. Pending placement. Urinary retention, BPH: - Avalos placed 12/19 for recurrent straight cath. - Continue finasteride, mirabegron. - Encouraged PO intake of fluids. Thrombocytopenia, chronic, stable - Per chart review (prior d/c summary), was seen by hematology in 2018; noted thrombocytopenia likely related to chronic Hepatitis C. AMS, slurred speech, facial droop (resolved): Possible TIA - Symptom onset was some time between late 12/16 and early 12/17. - CT head without acute process; MRI negative for acute findings. - Differential includes stroke recrudescence in the setting of acute infection, hospital delirium. - Lipid profile reveals low LDL; change in statin therapy not indicated. - A1c 5.9%. Hypertension: - BP under good control on home amlodipine. - Continue aspirin. - Holding Lasix, spironolactone given hypotension. Type 2 Diabetes Mellitus: - Continue Levemir 10u daily with sliding scale coverage. Diabetic peripheral neuropathy: - Continue gabapentin 300mg TID. Anxiety, depression: - Continue buspirone, aripiprazole. Tardive dyskinesia: - Continue Ingrezza. Skull fractures: - Age-indeterminate parietal and occipital skull fractures, new since March 2020. - Patient with no recollection of previous injuries, however on discussion with PCP injuries occurred over a year ago. - No signs of external injury to suggest recent trauma. - Cervical C-spine without con - no fracture or subluxation appreciated. Code status: FULL CODE Diet: DM2 diet easy to chew DVT ppx: heparin Dispo: Med/Surg, awaiting placement. Has placement at [facility] 12/24/21, but CM looking at alternatives at daughter's request. Will order covid test once details confirmed. (2) Skull fractures: (3) Hyperlipidemia: (4) Hypertension: (5) Type 2 diabetes mellitus: (6) Diabetic peripheral neuropathy: (7) Anxiety with depression: (8) Benign prostatic hyperplasia with urinary obstruction: (9) Tardive dyskinesia: (10) Thrombocytopenia: Total Time Total Time Spent Total Time Spent (In Minutes): <30 Discharge Plan Discharge Items Patient Disposition: Transfer Correction Fac Reason For Visit: GENERALIZED WEAKNESS Activity: Per Instructions section Non-emergency contact: Primary Care Provider Call non-emergency contact if: you have any medication questions, your symptoms worsen and you have a fever Follow-up/Referrals: Reji Gunderson MD [Primary Care Provider] - Diet: Carb Consistent or DM2 Diet Texture: Easy to Chew Addtl Attending Provider Instructions: 1) Generalized weakness: Plan: 81 yo male with DM2, HTN, HLD, BPH, anxiety, depression, and tardive dyskinesia admitted with weakness and poor oral intake. Stable. Aspiration pneumonia, resolved: - Brief episode of hypoxia earlier this admission, resolved with home oxygen. Patient is on 2-3LNC at baseline per Pulmonology note 01/2020 for Hx mixed restrictive and obstructive pulmonary disease. - CXR on admission with hazy bibasilar opacities, pneumonia vs. mild pulmonary edema. Repeat XR with interval worsening of the same. - Suspicious of aspiration pneumonia, especially given findings of significant silent aspiration on FEES. - Finished course of Unasyn (12/22). - Patient desires permissive aspiration. Discussion had with patient and with paige puckett about likelihood of repeated admissions in the future for aspiration pneumonia if he eats the foods he desires. Easy to chew diet ordered. Weakness, deconditioning, poor PO intake: - Progressive worsening prior to admission. - Differential includes infection, polypharmacy, general deconditioning. - Head CT and Brain MRI without evidence of CVA. - Treatment of aspiration pneumonia as outlined above. - Mirtazapine and Marinol currently held due to AMS on 12/17. - Continue PT/OT; PT recommending SNF upon discharge. Pending placement. Urinary retention, BPH: - Avalos placed 12/19 for recurrent straight cath. - Continue finasteride, mirabegron. - Encouraged PO intake of fluids. Thrombocytopenia, chronic, stable - Per chart review (prior d/c summary), was seen by hematology in 2018; noted th rombocytopenia likely related to chronic Hepatitis C. AMS, slurred speech, facial droop (resolved): Possible TIA - Symptom onset was some time between late 12/16 and early 12/17. - CT head without acute process; MRI negative for acute findings. - Differential includes stroke recrudescence in the setting of acute infection, hospital delirium. - Lipid profile reveals low LDL; change in statin therapy not indicated. - A1c 5.9%. Hypertension: - BP under good control on home amlodipine. - Continue aspirin. - Holding Lasix, spironolactone given hypotension. Type 2 Diabetes Mellitus: - Continue Levemir 10u daily with sliding scale coverage. Diabetic peripheral neuropathy: - Continue gabapentin 300mg TID. Anxiety, depression: - Continue buspirone, aripiprazole. Tardive dyskinesia: - Continue Ingrezza. Skull fractures: - Age-indeterminate parietal and occipital skull fractures, new since March 2020. - Patient with no recollection of previous injuries, however on discussion with PCP injuries occurred over a year ago. - No signs of external injury to suggest recent trauma. - Cervical C-spine without con - no fracture or subluxation appreciated. Pending Studies at Discharge: No Stand-Alone Forms: My [facility] Skilled Items Patient informed of condition?: Yes DNR: No Discharge Level of Care: Skilled Communicable Disease: No Lines: None Medications and DC Order Prescriptions: No Action spironolactone [Aldactone] 25 mg tablet 25 mg PO BID RF: 0 buspirone 30 mg tablet 30 mg PO BID RF: 0 aspirin 81 mg tablet,chewable 81 mg PO QAM RF: 0 B-complex with vitamin C capsule 1 cap PO QAM RF: 0 cholecalciferol (vitamin D3) 2,000 unit tablet 2,000 units PO QAM RF: 0 magnesium oxide 400 mg magnesium tablet 400 mg PO QAM RF: 0 mirabegron 50 mg tablet extended release 24 hr 50 mg PO DAILY Qty: 30 RF: 2 calcium carbonate-vitamin D3 [Calcium 600 + D(3)] 600 mg(1,500mg) -400 unit Tablet 1 tab PO QAM RF: 0 finasteride 5 mg tablet 5 mg PO QAM RF: 0 furosemide [Lasix] 20 mg tablet 20 mg PO BID Qty: 0 RF: 0 atorvastatin 20 mg tablet 20 mg PO QAM RF: 0 melatonin 3 mg Tablet 6 mg PO HS RF: 0 omeprazole 40 mg capsule,delayed release(DR/EC) 40 mg PO QAM RF: 0 amlodipine 10 mg tablet 10 mg PO QAM RF: 0 mirtazapine 30 mg tablet 30 mg PO HS RF: 0 gabapentin 300 mg capsule See Rx Instructions .ROUTE .COMPLEX RF: 0 aripiprazole 15 mg tablet 7.5 mg PO HS RF: 0 Complete Multivitamin-Mineral 18-400 mg-mcg Tablet 1 tab PO QAM RF: 0 Ingrezza 40 mg capsule 40 mg PO DAILY RF: 0 acetaminophen [Tylenol] 325 mg tablet 650 mg PO QDL RF: 0 insulin aspart U-100 [Novolog Flexpen U-100 Insulin] 100 unit/mL (3 mL) insulin pen 0 unit SUBCUT DIRECTED RF: 0 Levemir FlexTouch U-100 Insuln 100 unit/mL (3 mL) insulin pen 22 unit SUBCUT DAILY RF: 0 Admission Data Admit Date/Time: 12/06/21 20:14 Attending Provider: Sidra Veras Admit Provider: Mikel Elizabeth Primary Care Provider: Reji Gunderson Other Providers: Yair Mo ; Mikel Elizabeth Resident Activity Tracking Resident Involvement: Resident Care Provided Care Provided: Adult Hospital Medicine
[2021-12-24] MEDS: guaiFENesin 600 MG TABCR PO SCH ×2 (08:18→20:22)
[2021-12-24] MEDS: busPIRone 15 MG TAB PO SCH ×2 (08:19→18:36)
[2021-12-24] MEDS: VITAMIN B COMPLEX TAB PO SCH (08:19)
[2021-12-24] MEDS: GABAPENTIN 300 MG CAP PO SCH ×3 (08:19→20:22)
[2021-12-24] MEDS: CALCIUM 600MG + VIT D 400 IU TAB PO SCH (08:20)
[2021-12-24] MEDS: amLODIPine BESYLATE 5 MG TAB PO SCH (08:20)
[2021-12-24] MEDS: CEROVITE ADV FORMULA TAB PO SCH (08:20)
[2021-12-24] MEDS: FINASTERIDE 5 MG TAB PO SCH (08:20)
[2021-12-24] MEDS: MIRABEGRON ER 25 MG TAB PO SCH (08:21)
[2021-12-24] MEDS: ATORVASTATIN 20 MG TAB PO SCH (08:21)
[2021-12-24] MEDS: MAGNESIUM OXIDE 400 MG TAB PO SCH (08:22)
[2021-12-24] MEDS: PANTOprazole 40 MG TAB PO SCH (08:22)
[2021-12-24] MEDS: CHOLECALCIFEROL 1,000 UNITS 25 MCG TAB PO SCH (08:22)
[2021-12-24] MEDS: INGREZZA 40 MG PO SCH (08:23)
[2021-12-24] MEDS: INSULIN ASPART PER UNIT SC SCH ×4 (09:08→21:14)
[2021-12-24] MEDS: INSULIN DETEMIR FLEXPEN/FLEX TOUCH 100 UNITS/ML 3ML SQ SCH (09:09)
[2021-12-24] MEDS: HEPARIN SOD 5,000 UNIT/0.5 ML VIAL SQ SCH ×2 (09:11→20:22)
[2021-12-24] MEDS: POLYETHYLENE (MIRALAX) 17 GM PACK PO SCH (11:49)
[2021-12-24] MEDS: ASPIRIN 81 MG CHEW PO SCH (12:48)
--- NOTE | 2021-12-24 19:54 | Hospitalist Progress Note ---
Date of Service December 24, 2021 Assessment & Plan (1) Generalized weakness: Plan: 81 yo male with DM2, HTN, HLD, BPH, anxiety, depression, and tardive dyskinesia admitted with weakness and poor oral intake. Stable. Aspiration pneumonia, resolved: - Brief episode of hypoxia earlier this admission, resolved with home oxygen. Patient is on 2-3LNC at baseline per Pulmonology note 01/2020 for Hx mixed restrictive and obstructive pulmonary disease. - CXR on admission with hazy bibasilar opacities, pneumonia vs. mild pulmonary edema. Repeat XR with interval worsening of the same. - Suspicious of aspiration pneumonia, especially given findings of significant silent aspiration on FEES. - Finished course of Unasyn (12/22). - Patient desires permissive aspiration. Discussion had with patient and with family about likelihood of repeated admissions in the future for aspiration pneumonia if he eats the foods he desires. Easy to chew diet ordered. Weakness, deconditioning, poor PO intake: - Progressive worsening prior to admission. - Differential includes infection, polypharmacy, general deconditioning. - Head CT and Brain MRI without evidence of CVA. - Treatment of aspiration pneumonia as outlined above. - Mirtazapine and Marinol currently held due to AMS on 12/17. - Continue PT/OT; PT recommending SNF upon discharge. Pending placement. Urinary retention, BPH: - Avalos placed 12/19 for recurrent straight cath. - Continue finasteride, mirabegron. - Encouraged PO intake of fluids. Thrombocytopenia, chronic, stable - Per chart review (prior d/c summary), was seen by hematology in 2018; noted thrombocytopenia likely related to chronic Hepatitis C. AMS, slurred speech, facial droop (resolved): Possible TIA - Symptom onset was some time between late 12/16 and early 12/17. - CT head without acute process; MRI negative for acute findings. - Differential includes stroke recrudescence in the setting of acute infection, hospital delirium. - Lipid profile reveals low LDL; change in statin therapy not indicated. - A1c 5.9%. Hypertension: - BP under good control on home amlodipine. - Continue aspirin. - Holding Lasix, spironolactone given hypotension. Will discontinue upon discharge as patient has not needed during this admission. Type 2 Diabetes Mellitus: - Continue Levemir 10u daily with sliding scale coverage. Diabetic peripheral neuropathy: - Continue gabapentin 300mg TID. Anxiety, depression: - Continue buspirone, aripiprazole. Tardive dyskinesia: - Continue Ingrezza. Skull fractures: - Age-indeterminate parietal and occipital skull fractures, new since March 2020. - Patient with no recollection of previous injuries, however on discussion with PCP injuries occurred over a year ago. - No signs of external injury to suggest recent trauma. - Cervical C-spine without con - no fracture or subluxation appreciated. Code status: FULL CODE Diet: DM2 diet. easy to chew DVT ppx: heparin sq 5000u q12 Dispo: Med/Surg, awaiting placement. (2) Skull fractures: (3) Hyperlipidemia: (4) Hypertension: (5) Type 2 diabetes mellitus: (6) Diabetic peripheral neuropathy: (7) Anxiety with depression: (8) Benign prostatic hyperplasia with urinary obstruction: (9) Tardive dyskinesia: (10) Thrombocytopenia: Admission and Anticipated Discharge Date Admission Date: December 06, 2021 Supervising Physician Co-Signing Physician Notes Resident Physician Supervision Note: I independently interviewed and examined the patient and verified the massey history and physical, reviewed labs and image studies and agree with resident Dr. Monge findings and care plan. Subjective No complaints. No Fever, headache, dizziness, chest pain, SOB. Review of Systems Review of Systems: All systems reviewed & are unremarkable except as noted in HPI & below Physical Exam Physical Exam: General: A&Ox4. NAD. Cooperative. HEENT: Atraumatic, normocephalic. Pulm: CTAB. -wheezes, -rales, -rhonchi. No respiratory distress. Lungs clear. Cardiac: RRR, -mrg. Trace BLE Abdominal: Nontender, nondistended, soft. Results & Data Results & Data ([facility]) Vital Signs (Past 12 Hours) Vital Signs vitals reviewed, stable. 91-93 sat on RA Temp Pulse Resp BP Pulse Ox 12/24/21 14:58 36.6 C 72 16 126/64 93 Laboratory Results cbc stable. wbc 3.06. Hb 11.7. Plt 85. bmp stable. Resident Activity Tracking Resident Involvement: Resident Care Provided Care Provided: Adult [facility] Medicine
[2021-12-24] MEDS: ARIPiprazole 15 MG TAB PO SCH (20:21)
--- NOTE | 2021-12-25 07:11 | Hospitalist Progress Note ---
Date of Service December 25, 2021 Assessment & Plan (1) Generalized weakness: Plan: 81 yo male with DM2, HTN, HLD, BPH, anxiety, depression, and tardive dyskinesia admitted with weakness and poor oral intake. Stable. Aspiration pneumonia, resolved: - Brief episode of hypoxia earlier this admission, resolved with home oxygen. Patient is on 2-3LNC at baseline per Pulmonology note 01/2020 for Hx mixed restrictive and obstructive pulmonary disease. - CXR on admission with hazy bibasilar opacities, pneumonia vs. mild pulmonary edema. Repeat XR with interval worsening of the same. - Suspicious of aspiration pneumonia, especially given findings of significant silent aspiration on FEES. - Finished course of Unasyn (12/22). - Patient desires permissive aspiration. Discussion had with patient and with family about likelihood of repeated admissions in the future for aspiration pneumonia if he eats the foods he desires. Easy to chew diet ordered. - Diminished L lung field on exam; Encouraged use of incentive spirom. Weakness, deconditioning, poor PO intake: - Progressive worsening prior to admission. - Differential includes infection, polypharmacy, general deconditioning. - Head CT and Brain MRI without evidence of CVA. - Treatment of aspiration pneumonia as outlined above. - Mirtazapine and Marinol currently held due to AMS on 12/17. - Continue PT/OT; PT recommending SNF upon discharge. Pending placement. Urinary retention, BPH: - Avalos placed 2/3 for recurrent straight cath, removed 12/21/21. May need reinsertion as he is needing repeated straight caths. - Continue finasteride, mirabegron. - Encouraged PO intake of fluids. Hypertension: - BP under good control on home amlodipine. - Continue aspirin. - Holding Lasix, spironolactone given hypotension. Will discontinue upon discharge as patient has not needed during this admission. Peripheral edema: - mild, trace BLE. Monitor clinically. - 12/17/21 echo: EF 50-55. LV systolic function normal. No RWMA. Mild MR. Thrombocytopenia, chronic, stable - Per chart review (prior d/c summary), was seen by hematology in 2018; noted thrombocytopenia likely related to chronic Hepatitis C. AMS, slurred speech, facial droop (resolved): Possible TIA - Symptom onset was some time between late 12/16 and early 12/17. - CT head without acute process; MRI negative for acute findings. - Differential includes stroke recrudescence in the setting of acute infection, hospital delirium. - Lipid profile reveals low LDL; change in statin therapy not indicated. - A1c 5.9%. Type 2 Diabetes Mellitus: - Continue Levemir 10u daily with SSI. Diabetic peripheral neuropathy: - Continue gabapentin 300mg TID. Anxiety, depression: - Continue buspirone, aripiprazole. Tardive dyskinesia: - Continue Ingrezza. Skull fractures: - Age-indeterminate parietal and occipital skull fractures, new since March 2020. - Patient with no recollection of previous injuries, however on discussion with PCP injuries occurred over a year ago. - No signs of external injury to suggest recent trauma. - Cervical C-spine without con - no fracture or subluxation appreciated. Code status: FULL CODE Diet: DM2 diet. easy to chew DVT ppx: heparin sq 5000u q12 Dispo: Med/Surg, awaiting placement. (2) Skull fractures: (3) Hyperlipidemia: (4) Hypertension: (5) Type 2 diabetes mellitus: (6) Diabetic peripheral neuropathy: (7) Anxiety with depression: (8) Benign prostatic hyperplasia with urinary obstruction: (9) Tardive dyskinesia: (10) Thrombocytopenia: Admission and Anticipated Discharge Date Admission Date: December 06, 2021 Supervising Physician Co-Signing Physician Notes Resident Physician Supervision Note: I independently interviewed and examined the patient and verified the massey history and physical, reviewed labs and image studies and agree with resident Dr. Monge findings and care plan. Subjective Patient denies new complaints today. He still has generalized weakness, unchanged from prior. No fever, chills, chest pain, sob, headache, dizziness. Review of Systems Review of Systems: All systems reviewed & are unremarkable except as noted in HPI & below Physical Exam Physical Exam: General: A&Ox4. NAD. Cooperative. Made a joke when asked about orientation questions. HEENT: Atraumatic, normocephalic. Pulm: CTAB. -wheezes, -rales, -rhonchi. No respiratory distress. Diminished at left middle and lower lung [place]. Cardiac: RRR, -mrg. Trace/1+ BLE Abdominal: Nontender, nondistended, soft. Results & Data Results & Data ([facility]) Vital Signs (Past 12 Hours) Vital Signs vitals reviewed Temp Pulse Resp BP Pulse Ox 12/24/21 22:25 36.5 C 70 16 111/64 96 Laboratory Results no new labs Diagnostic Findings no new imaging Resident Activity Tracking Resident Involvement: Resident Care Provided Care Provided: Adult [facility] Medicine
[2021-12-25] MEDS: guaiFENesin 600 MG TABCR PO SCH ×2 (08:24→20:53)
[2021-12-25] MEDS: VITAMIN B COMPLEX TAB PO SCH (08:24)
[2021-12-25] MEDS: INGREZZA 40 MG PO SCH (08:24)
[2021-12-25] MEDS: GABAPENTIN 300 MG CAP PO SCH ×3 (08:25→20:53)
[2021-12-25] MEDS: ATORVASTATIN 20 MG TAB PO SCH (08:25)
[2021-12-25] MEDS: busPIRone 15 MG TAB PO SCH ×2 (08:26→18:22)
[2021-12-25] MEDS: MIRABEGRON ER 25 MG TAB PO SCH (08:26)
[2021-12-25] MEDS: CEROVITE ADV FORMULA TAB PO SCH (08:26)
[2021-12-25] MEDS: CHOLECALCIFEROL 1,000 UNITS 25 MCG TAB PO SCH (08:27)
[2021-12-25] MEDS: CALCIUM 600MG + VIT D 400 IU TAB PO SCH (08:27)
[2021-12-25] MEDS: amLODIPine BESYLATE 5 MG TAB PO SCH (08:27)
[2021-12-25] MEDS: FINASTERIDE 5 MG TAB PO SCH (08:28)
[2021-12-25] MEDS: PANTOprazole 40 MG TAB PO SCH (08:28)
[2021-12-25] MEDS: MAGNESIUM OXIDE 400 MG TAB PO SCH (08:28)
[2021-12-25] MEDS: INSULIN ASPART PER UNIT SC SCH ×4 (09:25→21:03)
[2021-12-25] MEDS: POLYETHYLENE (MIRALAX) 17 GM PACK PO SCH (09:34)
[2021-12-25] MEDS: HEPARIN SOD 5,000 UNIT/0.5 ML VIAL SQ SCH ×2 (09:35→20:53)
[2021-12-25] MEDS: ASPIRIN 81 MG CHEW PO SCH (09:35)
[2021-12-25] MEDS: INSULIN DETEMIR FLEXPEN/FLEX TOUCH 100 UNITS/ML 3ML SQ SCH (09:36)
[2021-12-25] MEDS: ARIPiprazole 15 MG TAB PO SCH (20:52)
--- NOTE | 2021-12-26 07:10 | Hospitalist Progress Note ---
Date of Service December 26, 2021 Assessment & Plan (1) Generalized weakness: Plan: 81 yo male with DM2, HTN, HLD, BPH, anxiety, depression, and tardive dyskinesia admitted with weakness and poor oral intake. Stable. throat congestion. occasional sputum. mucus clearance. trial hypertonic neb x1. continue mucinex and flutter valve. counseled patient on use of flutter valve and incentive spirom. Aspiration pneumonia, resolved: - Brief episode of hypoxia earlier this admission, resolved with home oxygen. Patient is on 2-3LNC at baseline per Pulmonology note 01/2020 for Hx mixed restrictive and obstructive pulmonary disease. - CXR on admission with hazy bibasilar opacities, pneumonia vs. mild pulmonary edema. Repeat XR with interval worsening of the same. - Suspicious of aspiration pneumonia, especially given findings of significant silent aspiration on FEES. - Finished course of Unasyn (12/22). - Patient desires permissive aspiration. Discussion had with patient and with family about likelihood of repeated admissions in the future for aspiration pneumonia if he eats the foods he desires. Easy to chew diet ordered. - Diminished L lung field on exam; Encouraged use of incentive spirom. Weakness, deconditioning, poor PO intake: - Progressive worsening prior to admission. - Differential includes infection, polypharmacy, general deconditioning. - Head CT and Brain MRI without evidence of CVA. - Treatment of aspiration pneumonia as outlined above. - Mirtazapine and Marinol currently held due to AMS on 12/17. - Continue PT/OT; PT recommending SNF upon discharge. Pending placement. Urinary retention, BPH: - Avalos placed 2/3 for recurrent straight cath, removed 12/21/21. May need reinsertion as he is needing repeated straight caths. - Continue finasteride, mirabegron. - Encouraged PO intake of fluids. Hypertension: - BP under good control on home amlodipine. - Continue aspirin. - Holding Lasix, spironolactone given hypotension. Will discontinue upon discharge as patient has not needed during this admission. Peripheral edema: - mild, trace BLE. Monitor clinically. - 12/17/21 echo: EF 50-55. LV systolic function normal. No RWMA. Mild MR. Thrombocytopenia, chronic, stable - Per chart review (prior d/c summary), was seen by hematology in 2018; noted thrombocytopenia likely related to chronic Hepatitis C. AMS, slurred speech, facial droop (resolved): Possible TIA - Symptom onset was some time between late 12/16 and early 12/17. - CT head without acute process; MRI negative for acute findings. - Differential includes stroke recrudescence in the setting of acute infection, hospital delirium. - Lipid profile reveals low LDL; change in statin therapy not indicated. - A1c 5.9%. Type 2 Diabetes Mellitus: - Continue Levemir 10u daily with SSI. Diabetic peripheral neuropathy: - Continue gabapentin 300mg TID. Anxiety, depression: - Continue buspirone, aripiprazole. Tardive dyskinesia: - Continue Ingrezza. Skull fractures: - Age-indeterminate parietal and occipital skull fractures, new since March 2020. - Patient with no recollection of previous injuries, however on discussion with PCP injuries occurred over a year ago. - No signs of external injury to suggest recent trauma. - Cervical C-spine without con - no fracture or subluxation appreciated. Code status: FULL CODE Diet: DM2 diet. easy to chew DVT ppx: heparin sq 5000u q12 Dispo: Med/Surg. Dispo to [facility] (2) Skull fractures: (3) Hyperlipidemia: (4) Hypertension: (5) Type 2 diabetes mellitus: (6) Diabetic peripheral neuropathy: (7) Anxiety with depression: (8) Benign prostatic hyperplasia with urinary obstruction: (9) Tardive dyskinesia: (10) Thrombocytopenia: Admission and Anticipated Discharge Date Admission Date: December 06, 2021 Subjective No new complaints. Intermittent choking/coughing while eating, but not often. Has mucus in throat not able to get out. No dyspnea. Already using flutter valve. Denies confusion. Review of Systems Review of Systems: All systems reviewed & are unremarkable except as noted in HPI & below Physical Exam Physical Exam: General: Grossly A&O. NAD. Cooperative. HEENT: Atraumatic, normocephalic. Pulm: CTAB. -wheezes, -rales, -rhonchi. No respiratory distress. Diminished at left lower. L side overall slightly quieter. Cardiac: RRR, -mrg. 1+ LLE edema. 2+ RLE edema. Abdominal: Nontender, nondistended, soft. Results & Data Results & Data ([facility]) Vital Signs (Past 12 Hours) Vital Signs 93 on room air. vitals stable Temp Pulse Resp BP BP Pulse Ox 12/26/21 01:40 68 116/73 12/25/21 23:17 36.6 C 67 18 112/58 L 93 Laboratory Results no new labs Resident Activity Tracking Resident Involvement: Resident Care Provided Care Provided: Adult Hospital Medicine
[2021-12-26] MEDS: busPIRone 15 MG TAB PO SCH (09:28)
[2021-12-26] MEDS: CHOLECALCIFEROL 1,000 UNITS 25 MCG TAB PO SCH (09:30)
[2021-12-26] MEDS: ATORVASTATIN 20 MG TAB PO SCH (09:30)
[2021-12-26] MEDS: CALCIUM 600MG + VIT D 400 IU TAB PO SCH (09:30)
[2021-12-26] MEDS: FINASTERIDE 5 MG TAB PO SCH (09:31)
[2021-12-26] MEDS: GABAPENTIN 300 MG CAP PO SCH ×2 (09:31→13:13)
[2021-12-26] MEDS: guaiFENesin 600 MG TABCR PO SCH (09:31)
[2021-12-26] MEDS: MAGNESIUM OXIDE 400 MG TAB PO SCH (09:32)
[2021-12-26] MEDS: PANTOprazole 40 MG TAB PO SCH (09:33)
[2021-12-26] MEDS: CEROVITE ADV FORMULA TAB PO SCH (09:33)
[2021-12-26] MEDS: MIRABEGRON ER 25 MG TAB PO SCH (09:33)
[2021-12-26] MEDS: VITAMIN B COMPLEX TAB PO SCH (09:34)
[2021-12-26] MEDS: amLODIPine BESYLATE 5 MG TAB PO SCH (09:36)
[2021-12-26] MEDS: INGREZZA 40 MG PO SCH (09:37)
[2021-12-26] MEDS: ASPIRIN 81 MG CHEW PO SCH (09:43)
[2021-12-26] MEDS: POLYETHYLENE (MIRALAX) 17 GM PACK PO SCH (09:44)
[2021-12-26] MEDS: HEPARIN SOD 5,000 UNIT/0.5 ML VIAL SQ SCH (09:44)
[2021-12-26] MEDS: INSULIN ASPART PER UNIT SC SCH ×2 (09:56→12:59)
[2021-12-26] MEDS: INSULIN DETEMIR FLEXPEN/FLEX TOUCH 100 UNITS/ML 3ML SQ SCH (09:57)
[2021-12-26] MEDS ORDERED: SODIUM CHLOR 7% 4 ML NEB NEB ONE (10:00)
--- NOTE | 2021-12-26 11:43 | Discharge Summary ---
Date of Service December 26, 2021 Admission HPI Per Admitting Provider Chief Complaint: The patient presents to the emergency department with progressive generalized weakness, decreased oral intake and ambulatory dysfunction. 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 He presents to the emergency department with generalized weakness, decreased oral intake and ambulatory dysfunction, despite home care with caretakers. Admission Exam Per Admitting Provider The patient is awake, slow to respond, normocephalic and atraumatic, lying in bed and in no acute distress. HEENT--PERRL, EOMI, mucous membranes and oropharynx dry. Neck--supple. No JVD. No bruits. Thyroid normal, trachea midline, no adenopathy. Heart--normal S1 and S2. No murmurs, rubs or gallops. Lungs--clear bilaterally, no respiratory distress, no accessory muscle use. Abdomen--normal bowel sounds and soft. Nontender. Nondistended, no hernias or masses, no organomegaly. Extremities--no cyanosis or clubbing. No edema. Dermatologic--normal skin turgor, normal color, no abnormal lymph nodes, no rash. Neurologic--cranial nerves II through XII grossly intact. Rheumatologic--limited exam Psychiatric--flat affect. Principal Diagnosis generalized weakness Discharge Exam General: Grossly A&O. NAD. Cooperative. HEENT: Atraumatic, normocephalic. Pulm: CTAB. -wheezes, -rales, -rhonchi. No respiratory distress. Diminished at left lower. L side overall slightly quieter. Cardiac: RRR, -mrg. 1+ LLE edema. 2+ RLE edema. Abdominal: Nontender, nondistended, soft. Discharge Data Allergies Allergy/AdvReac Type Severity Reaction Status Date / Time cyclobenzaprine Allergy Severe COLLAPSE Verified 12/06/21 17:12 morphine Allergy Intermediate other Verified 12/06/21 17:12 lisinopril Allergy Mild UNKNOWN Verified 12/06/21 17:12 pioglitazone Allergy Mild UNKNOWN Verified 12/06/21 17:12 prochlorperazine Allergy Mild UNKNOWN Verified 12/06/21 17:12 beet Allergy Unknown Unknown Verified 12/17/21 17:00 carisoprodol [From Soma] Allergy Unknown ON [facility] Verified 12/06/21 17:12 LIST glimepiride Allergy Unknown Unknown Rxn Verified 12/06/21 17:12 lamotrigine [From Lamictal] Allergy Unknown [facility] LIST Verified 12/06/21 17:12 mirtazapine Allergy Unknown UNKNOWN Verified 12/06/21 17:12 olmesartan [From Benicar] Allergy Unknown ON [facility] Verified 12/06/21 17:12 LIST quetiapine [From Seroquel] Allergy Unknown ON [facility] Verified 12/06/21 17:12 LIST tamsulosin [From Flomax] Allergy Unknown [facility] LIST Verified 12/06/21 17:12 telmisartan [From Micardis] Allergy Unknown ON [facility] Verified 12/06/21 17:12 LIST hydrochlorothiazide AdvReac Mild WEIGHT Verified 12/06/21 17:12 GAIN,DIZZINESS , FALLS streptomycin AdvReac Mild REMOTE Verified 12/06/21 17:12 RXN, "TINGLING IN LEGS" DENIES SOB/RASH tazobactam AdvReac Mild REDNESS AT Verified 12/06/21 17:12 INJECTION SITE triamterene AdvReac Mild WEIGHT Verified 12/06/21 17:12 GAIN,DIZZINESS , FALLS propoxyphene AdvReac Unknown UNKNOWN Verified 12/06/21 17:12 Consultations 12/06/21 20:26 ED Decision to Admit Stat Ordered Studies Intake and Output 12/25/21 12/26/21 12/26/21 22:59 06:59 14:59 Output Total 400 / 400 Balance -400 / -400 Output: Urine Amount (Catheter) 400 / 400 Straight 400 / 400 Other: # Unmeasured Voids 1 Weight 79.1 kg 79.1 kg Patient Weight 12/27/21 06:59 Weight 79.1 kg Intake and Output 12/26/21 12/26/21 12/26/21 06:59 14:59 22:59 Output Total 400 / 400 Balance -400 / -400 Output: Urine Amount (Catheter) 400 / 400 Straight 400 / 400 Other: Weight 79.1 kg Patient Weight 12/27/21 06:59 Weight 79.1 kg Chest X-Ray 12/06/21 17:01 XR chest 1V portable CLINICAL HISTORY: weakness COMPARISON STUDY: Chest CT May 22, 2018. Chest radiograph November 20, 2021. FINDINGS: Dual lead left subclavian pacemaker is in place. Postoperative findings within the anterior chest wall are noted. Old left-sided rib fractures are present. There is no pneumothorax or pleural effusion. Note is made of cardiomegaly without evidence for pulmonary edema. There is no consolidation. Multilevel vertebroplasty is noted. IMPRESSION: No acute cardiopulmonary findings. ACT 112: Negative or not required by law. Electronically signed by: Javed Cary M.D. 12/06/2021 5:[address] 12/06/21 17:01 CT OF THE HEAD WITHOUT CONTRAST CLINICAL HISTORY: generalized weakness COMPARISON STUDY: MRI of the brain April 05, 2020. Head CT May 20, 2020. CTA of the head April 06, 2020. CT DOSE: 614.27 mGy.cm TECHNIQUE: Helical axial images of the head were obtained without IV contrast. Automated exposure control was utilized for the study. A dose lowering technique was utilized adhering to the principles of ALARA. FINDINGS: No acute intracranial hemorrhage, midline shift or mass effect is present. Ventricular dilatation is unchanged. Basal cisterns are patent. There are no extra axial collections. White matter hypodensities favor small vessel disease. Encephalomalacia within the posterior left parietal lobe is noted. This is new since prior head CT of May 20, 2020 but is not acute. Note is made of a nondisplaced posterior right parietal skull fracture on axial image 109 of 120. This is age indeterminate but new since prior CTA of April 06, 2020. There is also a minimally displaced posterior left parietal calvarial fracture shown on axial image 116. A nondisplaced occipital fracture shown on axial image 99. Old left orbital floor defect is present. IMPRESSION: 1. No acute intracranial findings. 2. Minimally displaced left posterior parietal calvarial fracture. Nondisplaced posterior right parietal and occipital fractures, as described above. These fractures are age indeterminate given the lack of overlying scalp swelling but new since CT of April 06, 2020. 3. Left posterior parietal encephalomalacia which is not acute. ACT 112: Negative or not required by law. Electronically signed by: Javed Cary M.D. 12/06/2021 7:[address] 12/07/21 01:28 CT SCAN OF THE CERVICAL SPINE CLINICAL HISTORY: Age indeterminant calvarial fractures. COMPARISON STUDY: CT of the cervical spine dated 10/23/2019. TECHNIQUE: CT scan of the cervical spine is performed from the skull base to the upper thoracic spine. Images are reviewed in the axial, sagittal, and coronal planes. IV contrast was not administered for this examination. A dose lowering technique was utilized adhering to the principles of ALARA. CT DOSE: 258.48 mGy.cm FINDINGS: Skeletal structures: The skeletal structures are osteopenic. There is no evidence of fracture or subluxation involving the cervical spine. Vertebral body height and alignment are maintained. Small anterior osteophytes are seen throughout. The odontoid process and lateral masses are intact. The atlantoaxial articulation is preserved noting productive degenerative change. The spinous processes appear intact. Mild multilevel facet arthropathy is noted. Intervertebral discs: Moderate to advanced disc space narrowing is seen at C5-C6 and C6-C7. Mild disc space narrowing is noted at C7-T1. Central canal: Posterior disc osteophyte complexes at C5-C6 and C6-C7 may contribute to mild acquired compromise of the central canal. Soft tissues: The prevertebral and paraspinous soft tissues are within normal limits. Pacemaker leads are noted at the left thoracic inlet. There is mild atherosclerotic calcification of the carotid bulbs. Calvarium: The visualized calvarium at the skull base appears intact. Brain parenchyma: Partially visualized brain parenchyma at the skull base is within normal limits. Sinuses and mastoids: Mild mucosal thickening and chronic change is noted in the partially visualized left maxillary antrum. There is trace left mastoid effusion. The right mastoid air cells are well pneumatized. Lung apices: Clear as visualized. IMPRESSION: There is no evidence of fracture or subluxation involving the cervical spine. ACT 112: Negative or not required by law. Electronically signed by: Darin Mcarthur M.D. 12/07/2021 6:33 AM Chest X-Ray 12/08/21 23:05 XR chest 1V portable CLINICAL HISTORY: Difficulty breathing. Evaluate for aspiration pneumonitis.. COMPARISON STUDY: 12/06/2021 TECHNIQUE: 1 view of the chest FINDINGS: Single frontal view of the chest demonstrates the heart size to again be enlarged with pacer in place. The lungs are clear of alveolar opacities. There is no evidence for pleural effusion. There is no evidence for vascular congestion. There is no acute osseous pathology. IMPRESSION: No acute cardiopulmonary disease. There is no evidence for aspiration pneumonitis. ACT 112: Negative or not required by law. Electronically signed by: Caio Landrum M.D. 12/08/2021 11:50 PM Chest X-Ray 12/16/21 16:35 XR chest 1V portable HISTORY: hypoxia COMPARISON: Chest 12/08/2021 FINDINGS: No pneumothorax. No pleural fusions. The left-sided dual-chamber pacemaker. The heart remains top normal in size. There are poststernotomy changes again noted. Perihilar interstitial thickening and bibasilar hazy densities have developed in the interval. This could represent mild congestive change or a viral pneumonitis. IMPRESSION: Perihilar interstitial thickening and bibasilar hazy densities have developed in the interval. This could represent mild congestive change or a viral pneumonitis. ACT 112: Negative or not required by law. Electronically signed by: Ham Falk M.D. 12/16/2021 5:[address] 12/17/21 03:17 CT head/brain wo con CLINICAL HISTORY: 81 years-old Male with decreased responsiveness. Acutely altered mental status TECHNIQUE: Multiple axial CT images of the head were obtained without contrast. A dose lowering technique was utilized adhering to the principles of ALARA. CT DOSE: 1467.65 mGy.cm COMPARISON: Head CT 12/06/2021, 05/20/2020.. FINDINGS: No acute intracranial hemorrhage, midline shift, intracranial mass, hydrocephalus, territorial ischemia or abnormal extra-axial collection. Age- related involutional changes. White matter hypodensities suggest chronic microvascular ischemic disease. Encephalomalacia of the left parietal lobe near the vertex. Senescent basal ganglia calcifications. Minimally displaced left posterior parietal and nondisplaced posterior right parietal occipital fractures again noted. Mastoid air cells are generally clear. There is mild mucosal thickening of the paranasal sinuses. Hypoplastic right frontal sinus. Prior bilateral lens repair. IMPRESSION: 1. No acute intracranial abnormality. 2. Age-indeterminate likely chronic calvarial fractures are redemonstrated. ACT 112: Negative or not required by law. The above report was generated using voice recognition software. It may contain grammatical, syntax or spelling errors. Electronically signed by: Sea Mas M.D. 12/17/2021 6:41 AM Chest X-Ray 12/17/21 03:53 XR chest 1V portable HISTORY: cough, decreased responsiveness COMPARISON: Chest 12/16/2021. FINDINGS: No pneumothorax. No pleural effusions. The heart remains mildly enlarged. There are poststernotomy changes. Perihilar interstitial/vascular thickening and hazy bibasilar densities persist. Left-sided dual-chamber pacemaker. IMPRESSION: Interval progression of the perihilar interstitial thickening and bibasilar hazy densities. This favors mild interstitial pulmonary edema. A viral pneumonia could also have a similar appearance. ACT 112: Negative or not required by law. Electronically signed by: Ham Falk M.D. 12/17/2021 8:10 AM Brain MRI 12/18/21 00:00 MR BRAIN WO CON HISTORY: 81 years-old Male AMS . Acute weakness with altered mental status. COMPARISON: Head CT 12/17/2021, brain MRI 04/05/2020. TECHNIQUE: Multiplanar multisequence MRI of the brain was obtained without the use of IV contrast. FINDINGS: The sales assistant displays localizer images demonstrate no gross extracranial abnormality. The midline structures appear unremarkable. There is no restricted diffusion to suggest acute or subacute infarct. No acute intracranial hemorrhage, midline shift, abnormal extra-axial collection, hydrocephalus or intracranial mass. Senescent calcifications of the basal ganglia. Age-related involutional changes with ex vacuo ventriculomegaly. Moderate T2/FLAIR hyperintense foci throughout the white matter. Encephalomalacia and gliosis of the left parietal lobe compatible with chronic infarct, new from the 2019 comparison. Mildly depressed left posterior parietal and nondisplaced posterior right parieto-occipital fractures are redemonstrated which appear to be subacute to chronic. The cerebral venous sinuses and major arterial flow voids appear patent. Moderate-sized mastoid effusions. Mild mucosal thickening of the paranasal sinuses with left maxillary sinus volume loss. Prior bilateral lens repair. Suggested chronic left inferior orbital floor fracture. IMPRESSION: 1. No acute intracranial abnormality. 2. Likely chronic calvarial and left orbital floor fractures. 3. Age-related involutional changes with chronic microvascular ischemic disease. 4. Chronic appearing left parietal lobe infarct. ACT 112: Negative or not required by law. The above report was generated using voice recognition software. It may contain grammatical, syntax or spelling errors. Dictated: 12/18/2021 1:35 PM Transcribed: 12/18/2021 2:02 PM Rina [id number] [facility] Electronically signed by: Sea Mas M.D. 12/18/2021 2:05 PM Hospital Course (1) Generalized weakness: 81 yo male with DM2, HTN, HLD, BPH, anxiety, depression, and tardive dyskinesia admitted with generalized weakness and poor oral intake. Aspiration pneumonia, resolved: - Brief episode of hypoxia earlier this admission, resolved with home oxygen. Patient is on 2-3LNC at baseline per Pulmonology note 01/2020 for mixed r estrictive and obstructive pulmonary disease. - CXR on admission with hazy bibasilar opacities, pneumonia vs. mild pulmonary edema. Repeat XR with interval worsening of the same. - Suspicious of aspiration pneumonia, especially given findings of significant silent aspiration on FEES. - Finished course of Unasyn (12/22). - Patient desires permissive aspiration. Discussion had with patient and with mildred hickey about likelihood of repeated admissions in the future for aspiration pneumonia if he eats the foods he desires. Easy to chew diet. Weakness, deconditioning, poor PO intake: - Progressive worsening prior to admission. - Differential includes infection, polypharmacy, general deconditioning. - Head CT and Brain MRI without evidence of CVA. - Treatment of aspiration pneumonia as outlined above. - Mirtazapine and Marinol held during this admission due to AMS on 12/17, since resolved. Resume mirtazapine. HFpEF CHF Discontinued previous home meds spironolactone 25 mg PO BID and furosemide 20 mg PO BID because patient was hypotensive at the beginning of this admission, and has not needed this medication for 2 weeks. Restart lasix if issues w/ fluid retention. BPH w/ LUTS - Avalos placed 2/3 for recurrent straight cath, removed 12/21/21. Since then, has received straight caths, but has also intermittently voided. - bladder scans mostly <500 mL, likely also has component of chronic low urine production as well - Continue finasteride. Restarting tamsulosin upon discharge. Patient does not recall allergy and has tolerated this in past. Hold if hypotensive or orthostasis. Per chart review, this was on meds list 06/2021 urology visit but was not on admission meds list, possible w/ concerns for soft BPs and AMS at the time. Urinary incontinence and overactive symptoms - Mirabegron started at 06/2021 urology visit for overactive bladder and incontinence symptoms, separate from BPH and urinary retention Thrombocytopenia, chronic, stable - Per chart review (prior d/c summary), was seen by hematology in 2018; noted thrombocytopenia likely related to chronic Hepatitis C. - Follows with SOCORRO Sorenson of [facility] gastroenterology as an outpatient AMS, slurred speech, facial droop (resolved): Possible TIA - Symptom onset was some time between late 12/16 and early 12/17. - CT head without acute process; MRI negative for acute findings. - Differential includes stroke recrudescence in the setting of acute infection, hospital delirium. - Lipid profile reveals low LDL; change in statin therapy not indicated. - A1c 5.9%. Hypertension: - BP under good control on home amlodipine. - See above Type 2 Diabetes Mellitus: - BSGs controlled w/ 10u Detemir and sliding scale (needed only 4u aspart past 24 hrs). 12/17/21 a1c 5.9. Changing home regimen of 22u Detemir to 10u. If NPO, give 50%. Diabetic peripheral neuropathy: - Continue gabapentin 300mg TID. Anxiety, depression: - Continue buspirone, aripiprazole. Tardive dyskinesia: - Continue Ingrezza. Home supply. Skull fractures: - Age-indeterminate parietal and occipital skull fractures, new since March 2020. - Patient with no recollection of previous injuries, however on discussion with PCP injuries occurred over a year ago. - No signs of external injury to suggest recent trauma. - Cervical C-spine without con - no fracture or subluxation appreciated. Patient was full code during this admission. [facility], f/u w/ PCP Dr. Gunderson at [facility] (2) Skull fractures: (3) Hyperlipidemia: (4) Hypertension: (5) Type 2 diabetes mellitus: (6) Diabetic peripheral neuropathy: (7) Anxiety with depression: (8) Benign prostatic hyperplasia with urinary obstruction: (9) Tardive dyskinesia: (10) Thrombocytopenia: Total Time Total Time Spent Total Time Spent (In Minutes): <30 Discharge Plan Discharge Items Patient Disposition: Transfer Detention Fac Reason For Visit: GENERALIZED WEAKNESS Discharge Diagnosis: generalized weakness Activity: Per Instructions section Non-emergency contact: Primary Care Provider Call non-emergency contact if: you have any medication questions, your symptoms worsen and you have a fever Follow-up/Referrals: Reji Gunderson MD [Primary Care Provider] - Diet: Carb Consistent or DM2 Diet Texture: Easy to Chew Addtl Attending Provider Instructions: 81 yo male with DM2, HTN, HLD, BPH, anxiety, depression, and tardive dyskinesia admitted with generalized weakness and poor oral intake. Aspiration pneumonia, resolved: - Brief episode of hypoxia earlier this admission, resolved with home oxygen. Patient is on 2-3LNC at baseline per Pulmonology note 01/2020 for mixed restrictive and obstructive pulmonary disease. - CXR on admission with hazy bibasilar opacities, pneumonia vs. mild pulmonary edema. Repeat XR with interval worsening of the same. - Suspicious of aspiration pneumonia, especially given findings of significant silent aspiration on FEES. - Finished course of Unasyn (12/22). - Patient desires permissive aspiration. Discussion had with patient and with family about likelihood of repeated admissions in the future for aspiration pneumonia if he eats the foods he desires. Easy to chew diet. Weakness, deconditioning, poor PO intake: - Progressive worsening prior to admission. - Differential includes infection, polypharmacy, general deconditioning. - Head CT and Brain MRI without evidence of CVA. - Treatment of aspiration pneumonia as outlined above. - Mirtazapine and Marinol held during this admission due to AMS on 12/17, since resolved. Resume mirtazapine. HFpEF CHF Discontinued previous home meds spironolactone 25 mg PO BID and furosemide 20 mg PO BID because patient was hypotensive at the beginning of this admission, and has not needed this medication for 2 weeks. Restart lasix if issues w/ fluid retention. BPH w/ LUTS - Avalos placed 2/3 for recurrent straight cath, removed 12/21/21. Since then, has received straight caths, but has also intermittently voided. - bladder scans mostly <500 mL, likely also has component of chronic low urine production as well - Continue finasteride. Restarting tamsulosin upon discharge. Patient does not recall allergy and has tolerated this in past. Hold if hypotensive or orthostasis. Per chart review, this was on meds list 06/2021 urology visit but was not on admission meds list, possible w/ concerns for soft BPs and AMS at the time. Urinary incontinence and overactive symptoms - Mirabegron started at 06/2021 urology visit for overactive bladder and incontinence symptoms, separate from BPH and urinary retention Thrombocytopenia, chronic, stable - Per chart review (prior d/c summary), was seen by hematology in 2018; noted thrombocytopenia likely related to chronic Hepatitis C. - Follows with SOCORRO Sorenson of [facility] gastroenterology as an outpatient AMS, slurred speech, facial droop (resolved): Possible TIA - Symptom onset was some time between late 12/16 and early 12/17. - CT head without acute process; MRI negative for acute findings. - Differential includes stroke recrudescence in the setting of acute infection, hospital delirium. - Lipid profile reveals low LDL; change in statin therapy not indicated. - A1c 5.9%. Hypertension: - BP under good control on home amlodipine. - See above Type 2 Diabetes Mellitus: - BSGs controlled w/ 10u Detemir and sliding scale (needed only 4u aspart past 24 hrs). 12/17/21 a1c 5.9. Changing home regimen of 22u Detemir to 10u. If NPO, give 50%. Diabetic peripheral neuropathy: - Continue gabapentin 300mg TID. Anxiety, depression: - Continue buspirone, aripiprazole. Tardive dyskinesia: - Continue Ingrezza. Home supply. Skull fractures: - Age-indeterminate parietal and occipital skull fractures, new since March 2020. - Patient with no recollection of previous injuries, however on discussion with PCP injuries occurred over a year ago. - No signs of external injury to suggest recent trauma. - Cervical C-spine without con - no fracture or subluxation appreciated. Patient was full code during this admission. [facility] discharge from [facility]F, f/u w/ PCP Dr. Gunderson at [facility] Pending Studies at Discharge: No Stand-Alone Forms: [facility] Skilled Items Patient informed of condition?: Yes DNR: No Discharge Level of Care: Skilled Communicable Disease: No Discharge Prognosis: Stable Lines: None Urinary Catheter: No Medications and DC Order Prescriptions: New tamsulosin 0.4 mg capsule 0.4 mg PO DAILY@1630 14 Days Qty: 14 RF: 1 Continued Ingrezza 40 mg capsule 40 mg PO DAILY RF: 0 atorvastatin 20 mg tablet 20 mg PO QAM 14 Days Qty: 14 RF: 1 melatonin 3 mg Tablet 6 mg PO HS 14 Days Qty: 28 RF: 1 omeprazole 40 mg capsule,delayed release(DR/EC) 40 mg PO QAM 14 Days Qty: 14 RF: 1 amlodipine 10 mg tablet 10 mg PO QAM 14 Days Qty: 14 RF: 1 mirtazapine 30 mg tablet 30 mg PO HS 14 Days Qty: 14 RF: 1 buspirone 30 mg tablet 30 mg PO BID 14 Days Qty: 28 RF: 1 gabapentin 300 mg capsule See Rx Instructions .ROUTE .COMPLEX 14 Days Qty: 42 RF: 1 aspirin 81 mg tablet,chewable 81 mg PO QAM 14 Days Qty: 14 RF: 1 finasteride 5 mg tablet 5 mg PO QAM 14 Days Qty: 14 RF: 1 B-complex with vitamin C capsule 1 cap PO QAM 14 Days Qty: 14 RF: 1 aripiprazole 15 mg tablet 7.5 mg PO HS 14 Days Qty: 7 RF: 1 insulin aspart U-100 [Novolog Flexpen U-100 Insulin] 100 unit/mL (3 mL) insulin pen 0 unit SUBCUT DIRECTED 14 Days Qty: 3 RF: 1 calcium carbonate-vitamin D3 [Calcium 600 + D(3)] 600 mg(1,500mg) -400 unit Tablet 1 tab PO QAM 14 Days Qty: 14 RF: 1 cholecalciferol (vitamin D3) 2,000 unit tablet 2,000 units PO QAM 14 Days Qty: 14 RF: 1 Complete Multivitamin-Mineral 18-400 mg-mcg Tablet 1 tab PO QAM 14 Days Qty: 14 RF: 1 mirabegron 50 mg tablet extended release 24 hr 50 mg PO DAILY 14 Days Qty: 30 RF: 1 magnesium oxide 400 mg magnesium tablet 400 mg PO QAM 14 Days Qty: 14 RF: 1 Changed acetaminophen [Tylenol] 325 mg tablet 650 mg PO Q6H PRN (Reason: pain) 14 Days Qty: 14 RF: 1 Levemir FlexTouch U-100 Insuln 100 unit/mL (3 mL) insulin pen 10 unit SUBCUT QAM 14 Days Qty: 1.4 RF: 1 Discontinued spironolactone [Aldactone] 25 mg tablet 25 mg PO BID RF: 0 furosemide [Lasix] 20 mg tablet 20 mg PO BID Qty: 0 RF: 0 Discharge Orders: Discharge Order (Routine); Ordered 12/26/21 Ordered By: Kehinde Monge Admission Data Admit Date/Time: 12/06/21 20:14 Attending Provider: Sidra Veras Admit Provider: Mikel Elizabeth Primary Care Provider: Reji Gunderson Other Providers: Yair Mo ; Mikel Elizabeth Other Interventions: Discharge Summary Assessment (RN) Last Done: 12/26/21 11:49 Supervising Physician Co-Signing Physician Notes Resident Physician Supervision Note: I independently interviewed and examined the patient and verified the [place] history and physical, reviewed labs and image studies and agree with resident Dr. Monge findings and care plan.
== END 2021-12-26 15:02 ==
LOC: ED 16:17 → SUATTDRO 20:14 → INTOOBSV 20:14 → 3W 20:14 → 1E 12-17 05:32 → 3N 12-18 21:04